=== PATIENT | female | born 1935 | race African-American/Black ===

== ENCOUNTER → 2016-12-16 | Outpatient (CLI) | payer MEDICARE, OTHER ==
[~2016-12-16] MED LIST: ADVAIR 100-501 EACH INH; ADVAIR 250-501 EACH INH; ALLOPURINOL100 M1 ORAL; AMLODIPINE-ATO1 EA10 ORAL; BENADRYL25 M3 PO; CALCITRIOL0.25 MCG PO; COLACE100 MG ORAL; DEXILANT60 MG ORAL; FUROSEMIDE40 MG ORAL; GABAPENTIN400 MG ORAL; ISOSORBIDE DINI10 MG ORAL; ISOSORBIDE DINIT5 MG ORAL; LASIX40 MG ORAL; LIDOCAINE700 M1 TP; MACROBID100 MG ORAL; METOPROLOL SUCC25 MG ORAL; METOPROLOL TART25 MG ORAL; MYLANTA30 M1 ORAL; NEURONTIN300 MG ORAL; NEXIUM20 M1 ORAL; NEXIUM20 MG ORAL; NEXIUM40 M2 ORAL; OXYBUTYNIN CHLOR5 M1 ORAL; OXYCODONE HCL E10 MG PO; OXYCODONE HCL15 M1 ORAL; ROXICODONE15 MG ORAL; SYMBICORT 1601 PUFFS INH; VANCOMYCIN1 GM/2502 IVPB; Vancomycin Hcl MISC
[2016-12-16 12:02] LABS: APPEARANCE,URINE CLOUDY; KETONES,URINE NEGATIVE (NEGATIVE); LEUKOCYTE ESTERASE ,URINE 3+ (NEGATIVE); NITRITE,URINE POSITIVE (NEGATIVE); PH,URINE 6 (4.5-8.0); PROTEIN,URINE 1+ (NEGATIVE); UROBILINOGEN,URINE NORMAL MG/DL (0.0-1.0)
[2016-12-16 12:03] LABS: BASOPHILS % (AUTO) 1.1 % (0.0-2.0); EOSINOPHILS % (AUTO) 2.5 % (0.0-3.0); LYMPHOCYTES % (AUTO) 24.1 % (20.0-45.0); MEAN CORPUSCULAR HEMOGLOBIN 27.3 PG (27.0-31.0); MEAN CORPUSCULAR HGB CONC 30.3 G/DL (32.0-36.0); MEAN CORPUSCULAR VOLUME 90 FL (80-99); MEAN PLATELET VOLUME 5.3 FL (6.5-10.1); MONOCYTES % (AUTO) 11.5 % (1.0-10.0); NEUTROPHILS % (AUTO) 60.8 % (45.0-75.0); PLATELET COUNT 258 K/UL (150-450); RED BLOOD COUNT 3.71 M/UL (4.20-5.40); WHITE BLOOD COUNT 5.4 K/UL (4.8-10.8)
[2016-12-16 12:46] LABS: ALANINE AMINOTRANSFERASE 5 U/L (3-33); ALBUMIN/GLOBULIN RATIO 0.7 (1.0-2.7); ANION GAP 15 (5-15); ASPARTATE AMINO TRANSFERASE 12 U/L (5-40); CALCIUM 9.4 mg/dL (8.6-10.2); CARBON DIOXIDE 22 mEQ/L (20-30); CHLORIDE 103 mEQ/L (98-107); CHOLESTEROL 104 mg/dL (< 200); CHOLESTEROL/HDL RATIO 1.9 (3.3-4.4); HEMOLYSIS 2; LDL CHOLESTEROL (CALC.) 35 mg/dL (60-99); MAGNESIUM 2.1 mg/dL (1.7-2.5); PHOSPHORUS 3.7 mg/dL (2.5-4.8); POTASSIUM 4.8 mEQ/L (3.4-4.9); SODIUM 140 mEQ/L (135-145); URIC ACID 8.1 mg/dL (3.0-7.5)
[2016-12-16 12:48] LABS: HEMOGLOBIN A1C 5.2 % (< 6.0)
[2016-12-16 12:54] LABS: BACTERIA,URINE MODERATE /HPF; SQUAMOUS EPITHELIAL CELL,UR FEW /LPF (NONE/OCC); WBC,URINE 20-30 /HPF (0 - 2)
== END | disposition home or self-care (01) ==
LOC: LAB 11:10
DX: I12.9 Hypertensive chronic kidney disease with stage 1 through stage 4 chronic kidney disease, or unspecified chronic kidney disease (principal); N18.3 Chronic kidney disease, stage 3 (moderate); E66.9 Obesity, unspecified; M19.90 Unspecified osteoarthritis, unspecified site; M10.9 Gout, unspecified
CPT/HCPCS: 36415; 80053; 80061; 81003; 82306; 82607; 82746; 83036; 83735; 84100; 84443; 84550; 85025; 87086; 87181

== ENCOUNTER → 2017-02-12 | Outpatient (CLI) | payer MEDICARE, OTHER ==
[2017-02-12 12:16] LABS: BASOPHILS % (AUTO) 1.1 % (0.0-2.0); EOSINOPHILS % (AUTO) 2.8 % (0.0-3.0); LYMPHOCYTES % (AUTO) 20.9 % (20.0-45.0); MEAN CORPUSCULAR HEMOGLOBIN 27.1 PG (27.0-31.0); MEAN CORPUSCULAR HGB CONC 29.2 G/DL (32.0-36.0); MEAN CORPUSCULAR VOLUME 93 FL (80-99); MONOCYTES % (AUTO) 10.7 % (1.0-10.0); NEUTROPHILS % (AUTO) 64.5 % (45.0-75.0); PLATELET COUNT 218 K/UL (150-450); RED BLOOD COUNT 4.02 M/UL (4.20-5.40); RED CELL DISTRIBUTION WIDTH 16.3 % (11.6-14.8); WHITE BLOOD COUNT 5.5 K/UL (4.8-10.8)
[2017-02-12 12:31] LABS: APPEARANCE,URINE SLIGHTLY CLOUDY; KETONES,URINE NEGATIVE (NEGATIVE); LEUKOCYTE ESTERASE ,URINE 3+ (NEGATIVE); NITRITE,URINE POSITIVE (NEGATIVE); PH,URINE 6.5 (4.5-8.0); PROTEIN,URINE 1+ (NEGATIVE); UROBILINOGEN,URINE NORMAL MG/DL (0.0-1.0)
[2017-02-12 12:34] LABS: ALANINE AMINOTRANSFERASE 6 U/L (3-33); ALBUMIN/GLOBULIN RATIO 0.6 (1.0-2.7); ANION GAP 17 (5-15); ASPARTATE AMINO TRANSFERASE 14 U/L (5-40); CALCIUM 9.5 mg/dL (8.6-10.2); CARBON DIOXIDE 24 mEQ/L (20-30); CHLORIDE 97 mEQ/L (98-107); CHOLESTEROL 106 mg/dL (< 200); CHOLESTEROL/HDL RATIO 1.8 (3.3-4.4); CREATININE 2.1 mg/dL (0.5-0.9); HEMOLYSIS 7; LDL CHOLESTEROL (CALC.) 28 mg/dL (60-99); PHOSPHORUS 4.4 mg/dL (2.5-4.8); POTASSIUM 5.2 mEQ/L (3.4-4.9); SODIUM 138 mEQ/L (135-145); TOTAL PROTEIN 8.3 g/dL (6.6-8.7); URIC ACID 7.9 mg/dL (3.0-7.5)
[2017-02-12 12:38] LABS: HEMOGLOBIN A1C 5.6 % (< 6.0)
[2017-02-12 12:50] LABS: WBC,URINE 40-60 /HPF (0 - 2)
[2017-02-12 12:51] LABS: BACTERIA,URINE MANY /HPF; SQUAMOUS EPITHELIAL CELL,UR FEW /LPF (NONE/OCC)
== END | disposition home or self-care (01) ==
LOC: LAB 11:21
DX: R10.9 Unspecified abdominal pain (principal); M19.90 Unspecified osteoarthritis, unspecified site; I12.9 Hypertensive chronic kidney disease with stage 1 through stage 4 chronic kidney disease, or unspecified chronic kidney disease; E11.22 Type 2 diabetes mellitus with diabetic chronic kidney disease; N18.3 Chronic kidney disease, stage 3 (moderate); E66.9 Obesity, unspecified; N39.0 Urinary tract infection, site not specified; R10.2 Pelvic and perineal pain
CPT/HCPCS: 36415; 80053; 80061; 81001; 82378; 82607; 82746; 83036; 83735; 84100; 84550; 85025; 87086; 87181

== ENCOUNTER → 2017-07-29 | Outpatient (CLI) | payer MEDICARE, OTHER ==
[2017-07-29 12:04] LABS: BASOPHILS % (AUTO) 0.8 % (0.0-2.0); LYMPHOCYTES % (AUTO) 25.5 % (20.0-45.0); MEAN CORPUSCULAR HGB CONC 29.3 G/DL (32.0-36.0); MEAN CORPUSCULAR VOLUME 92 FL (80-99); MEAN PLATELET VOLUME 5.2 FL (6.5-10.1); NEUTROPHILS % (AUTO) 61.6 % (45.0-75.0); PLATELET COUNT 205 K/UL (150-450); RED BLOOD COUNT 3.84 M/UL (4.20-5.40); RED CELL DISTRIBUTION WIDTH 16.2 % (11.6-14.8)
[2017-07-29 12:11] LABS: APPEARANCE,URINE CLOUDY; KETONES,URINE NEGATIVE (NEGATIVE); LEUKOCYTE ESTERASE ,URINE 3+ (NEGATIVE); NITRITE,URINE POSITIVE (NEGATIVE); PH,URINE 6 (4.5-8.0); PROTEIN,URINE 2+ (NEGATIVE); UROBILINOGEN,URINE NORMAL MG/DL (0.0-1.0)
[2017-07-29 12:20] LABS: BACTERIA,URINE MANY /HPF; RBC,URINE 0-2 /HPF (0 - 2); SQUAMOUS EPITHELIAL CELL,UR FEW /LPF (NONE/OCC); WBC,URINE 15-20 /HPF (0 - 2)
[2017-07-29 12:30] LABS: ALANINE AMINOTRANSFERASE 35 U/L (3-33); ALBUMIN/GLOBULIN RATIO 0.6 (1.0-2.7); ANION GAP 10 (5-15); ASPARTATE AMINO TRANSFERASE 41 U/L (5-40); CALCIUM 9.1 mg/dL (8.6-10.2); CARBON DIOXIDE 26 mEQ/L (20-30); CHLORIDE 103 mEQ/L (98-107); CHOLESTEROL 97 mg/dL (< 200); CHOLESTEROL/HDL RATIO 1.7 (3.3-4.4); HEMOLYSIS 2; LDL CHOLESTEROL (CALC.) 23 mg/dL (60-99); POTASSIUM 4.9 mEQ/L (3.4-4.9); SODIUM 139 mEQ/L (135-145); TOTAL PROTEIN 7.9 g/dL (6.6-8.7)
[2017-07-29 12:32] LABS: HEMOGLOBIN A1C 5.7 % (< 6.0)
== END | disposition home or self-care (01) ==
LOC: LAB 10:56
DX: N18.3 Chronic kidney disease, stage 3 (moderate) (principal); I12.9 Hypertensive chronic kidney disease with stage 1 through stage 4 chronic kidney disease, or unspecified chronic kidney disease; E11.22 Type 2 diabetes mellitus with diabetic chronic kidney disease
CPT/HCPCS: 36415; 80053; 80061; 81003; 83036; 85025; 87086; 87181

== ENCOUNTER 2018-01-17 19:14 | Inpatient (IN) | payer MEDICARE, MEDICAID ==
[~2018-01-17] VITALS: Ht 157.5 cm; Wt 83.9 kg
[2018-01-17 19:33] VITALS: BP 156/71
[2018-01-17] MEDS ORDERED: Vancomycin 1.5gm/D5W 250ml 250 ML IVPB ONE (19:45)
[2018-01-17 20:35] LABS: BASOPHILS % (AUTO) 1.1 % (0.0-2.0); EOSINOPHILS % (AUTO) 0.4 % (0.0-3.0); HEMATOCRIT 35.1 % (37.0-47.0); HEMOGLOBIN 10.7 G/DL (12.0-16.0); LYMPHOCYTES % (AUTO) 16.4 % (20.0-45.0); MEAN CORPUSCULAR VOLUME 88 FL (80-99); MONOCYTES % (AUTO) 8.5 % (1.0-10.0); NEUTROPHILS % (AUTO) 73.6 % (45.0-75.0); PLATELET COUNT 199 K/UL (150-450); RED CELL DISTRIBUTION WIDTH 16.1 % (11.6-14.8); WHITE BLOOD COUNT 6.1 K/UL (4.8-10.8)
[2018-01-17 20:43] LABS: APPEARANCE,URINE SLIGHTLY CLOUDY; BILIRUBIN, URINE NEGATIVE (NEGATIVE); COLOR,URINE PALE YELLOW; GLUCOSE, URINE (UA) NEGATIVE (NEGATIVE); KETONES,URINE NEGATIVE (NEGATIVE); LEUKOCYTE ESTERASE ,URINE 3+ (NEGATIVE); NITRITE,URINE NEGATIVE (NEGATIVE); PH,URINE 5 (4.5-8.0); PROTEIN,URINE 2+ (NEGATIVE); UROBILINOGEN,URINE NORMAL MG/DL (0.0-1.0)
[2018-01-17 20:53] LABS: ANION GAP 8 mmol/L (5-15); BLOOD UREA NITROGEN 35 mg/dL (7-18); CARBON DIOXIDE 25 MMOL/L (21-32); CHLORIDE 103 MMOL/L (98-107); CREATININE 2.3 MG/DL (0.55-1.30); POTASSIUM 4.9 MMOL/L (3.5-5.1); SODIUM 135 MMOL/L (136-145)
[2018-01-17 21:03] LABS: ALANINE AMINOTRANSFERASE 30 U/L (12-78); ALBUMIN 2.9 G/DL (3.4-5.0); ALBUMIN/GLOBULIN RATIO 0.5 (1.0-2.7); ALKALINE PHOSPHATASE 167 U/L (46-116); ASPARTATE AMINO TRANSFERASE 32 U/L (15-37); BILIRUBIN,TOTAL 0.3 MG/DL (0.2-1.0)
[2018-01-17] MEDS ORDERED: oxyCODONE HCL/Acetaminophen 5/325mg ORAL ONE (21:45)
[2018-01-17] MEDS ORDERED: Albuterol/Ipratropium 3ml neb HHN PRN (22:15)
[2018-01-17] MEDS ORDERED: Miralax 17gm pkt ORAL PRN (22:15)
[2018-01-17] MEDS ORDERED: Nitroglycerin Subl 0.4mg tab SL PRN (22:15)
--- NOTE | 2018-01-17 23:14 | Emergency Room Report ---
History of Present Illness General Chief Complaint: Pain Source: Patient Present Illness HPI 82-year-old female presents ED for evaluation. Patient coming from long term facility with pain and swelling to the right lower extremity. Warm to touch. 10 out of 10 pain, sharp, nonradiating. History of DVT in the past. Denies chest pain or shortness of breath. Denies fevers or chills. No other aggravating or relieving factors. Denies any other associated symptoms Allergies: Coded Allergies: DIAZEPAM (Verified Allergy, Unknown, 10/07/11) HYDROCODONE (Verified Allergy, Unknown, 07/07/10) MINOXIDIL (Verified Allergy, Unknown, 07/07/10) PENICILLINS (Verified Allergy, Unknown, 10/07/11) NAME ALERT (Verified Adverse Reaction, Unknown, 07/13/08) Patient History Past Medical History: DM, HTN, asthma, CVA/TIA Past Surgical History: none Pertinent Family History: none Social History: Denies: smoking, alcohol use, drug use Last Menstrual Period: n/a Now: No Immunizations: UTD Reviewed Nursing Documentation: PMH: Agreed, PSxH: Agreed Nursing Documentation-PMH Hx Hypertension: Yes Hx Asthma: Yes Hx Diabetes: Yes Hx Cancer: No Hx Neurological Problems: No Hx Cerebrovascular Accident: Yes Hx Syncope: No Hx Weakness: Yes Review of Systems All Other Systems: negative except mentioned in HPI Physical Exam Vital Signs Date Time Temp Pulse Resp B/P (MAP) Pulse Ox O2 Delivery O2 Flow Rate FiO2 01/17/18 19:04 101.0 79 20 146/64 99 Room Air 100.9 Sp02 EP Interpretation: reviewed, normal General Appearance: no apparent distress, alert, GCS 15, non-toxic Head: normocephalic ENT: normal ENT inspection Neck: normal inspection Respiratory: chest non-tender, lungs clear, normal breath sounds, speaking full sentences Cardiovascular #1: regular rate, rhythm, no edema Gastrointestinal: normal bowel sounds, non tender, soft, non-distended, no guarding, no rebound Rectal: deferred Genitourinary: no CVA tenderness Musculoskeletal: swelling - RLE, tender Neurologic: alert, oriented x3, responsive, motor strength/tone normal, sensory intact, speech normal Psychiatric: normal inspection Skin: other - induration/erythema RLE Lymphatic: normal inspection Medical Decision Making Diagnostic Impression: Primary Impression: Cellulitis of right lower extremity Additional Impressions: Renal insufficiency UTI (urinary tract infection) Qualified Codes: N39.0 - Urinary tract infection, site not specified Labs Test 01/17/18 19:50 White Blood Count 6.1 K/UL (4.8-10.8) Red Blood Count 4.00 M/UL (4.20-5.40) Hemoglobin 10.7 G/DL (12.0-16.0) Hematocrit 35.1 % (37.0-47.0) Mean Corpuscular Volume 88 FL (80-99) Mean Corpuscular Hemoglobin 26.8 PG (27.0-31.0) Mean Corpuscular Hemoglobin Concent 30.5 G/DL (32.0-36.0) Red Cell Distribution Width 16.1 % (11.6-14.8) Platelet Count 199 K/UL (150-450) Mean Platelet Volume 5.4 FL (6.5-10.1) Neutrophils (%) (Auto) 73.6 % (45.0-75.0) Lymphocytes (%) (Auto) 16.4 % (20.0-45.0) Monocytes (%) (Auto) 8.5 % (1.0-10.0) Eosinophils (%) (Auto) 0.4 % (0.0-3.0) Basophils (%) (Auto) 1.1 % (0.0-2.0) Urine Color Pale yellow Urine Appearance Slightly cloudy Urine pH 5 (4.5-8.0) Urine Specific [place] 1.010 (1.005-1.035) Urine Protein 2+ (NEGATIVE) Urine Glucose (UA) Negative (NEGATIVE) Urine Ketones Negative (NEGATIVE) Urine Occult Blood 2+ (NEGATIVE) Urine Nitrite Negative (NEGATIVE) Urine Bilirubin Negative (NEGATIVE) Urine Urobilinogen Normal MG/DL (0.0-1.0) Urine Leukocyte Esterase 3+ (NEGATIVE) Urine RBC 2-4 /HPF (0 - 2) Urine WBC 5-10 /HPF (0 - 2) Urine Squamous Epithelial Cells Few /LPF (NONE/OCC) Urine Amorphous Sediment Few /LPF (NONE) Urine Bacteria Many /HPF (NONE) Sodium Level 135 MMOL/L (136-145) Potassium Level 4.9 MMOL/L (3.5-5.1) Chloride Level 103 MMOL/L (98-107) Carbon Dioxide Level 25 MMOL/L (21-32) Anion Gap 8 mmol/L (5-15) Blood Urea Nitrogen 35 mg/dL (7-18) Creatinine 2.3 MG/DL (0.55-1.30) Estimat Glomerular Filtration Rate mL/min (>60) Glucose Level 102 MG/DL (74-106) Lactic Acid Level 1.50 mmol/L (0.66-2.22) Calcium Level 9.0 MG/DL (8.5-10.1) Total Bilirubin 0.3 MG/DL (0.2-1.0) Aspartate Amino Transf (AST/SGOT) 32 U/L (15-37) Alanine Aminotransferase (ALT/SGPT) 30 U/L (12-78) Alkaline Phosphatase 167 U/L (46-116) Pro-B-Type Natriuretic Peptide 1380 pg/mL (0-125) Total Protein 8.6 G/DL (6.4-8.2) Albumin 2.9 G/DL (3.4-5.0) Globulin 5.7 g/dL Albumin/Globulin Ratio 0.5 (1.0-2.7) Chest X-Ray Diagnostic Results Chest X-Ray Diagnostic Results : Chest X-Ray Ordered: Yes # of Views/Limited/Complete: 1 View Indication: Shortness of Breath EP Interpretation: Yes Interpretation: no pneumothorax, other - L atelectasis Impression: Other - atelectasis vs infiltrate Electronically Signed by: Electronically signed by Joe Young MD Last Vital Signs Date Time Temp Pulse Resp B/P (MAP) Pulse Ox O2 Delivery O2 Flow Rate FiO2 01/17/18 19:33 99.1 78 15 156/71 100 Room Air 99.1 Status: improved Disposition: ADMITTED INPATIENT Condition: Serious Referrals: Christopher Villanueva MD (PCP) JOE YOUNG M.D. Jan 17, 2018 23:14
[2018-01-17 23:30] VITALS: BP 150/69
[2018-01-18] VITALS (7 sets, daily range): BP systolic 102–150; BP diastolic 58–85
[2018-01-18] MEDS: Aztreonam Inj 1 GM in NS 50 ML IVPB SCH ×2 (05:35→15:47)
[2018-01-18] MEDS: oxyCODONE 15mg IR tab ORAL PRN ×2 (06:32→20:41)
[2018-01-18 08:45] LABS: EOSINOPHILS % (AUTO) 2.5 % (0.0-3.0); HEMATOCRIT 31.2 % (37.0-47.0); HEMOGLOBIN 9.6 G/DL (12.0-16.0); LYMPHOCYTES % (AUTO) 29.5 % (20.0-45.0); MEAN CORPUSCULAR VOLUME 87 FL (80-99); MONOCYTES % (AUTO) 12.3 % (1.0-10.0); NEUTROPHILS % (AUTO) 54.8 % (45.0-75.0); PLATELET COUNT 192 K/UL (150-450); RED BLOOD COUNT 3.57 M/UL (4.20-5.40); WHITE BLOOD COUNT 5.2 K/UL (4.8-10.8)
[2018-01-18] MEDS: Oxybutynin 5mg tab ORAL SCH (08:47)
[2018-01-18] MEDS: Metoprolol Succinate XL 25mg tab ORAL SCH (08:48)
[2018-01-18] MEDS: Allopurinol 100mg Tab ORAL SCH (08:48)
[2018-01-18] MEDS: Furosemide 40mg tab ORAL SCH (08:48)
[2018-01-18] MEDS: Heparin 5000 units/ml inj SUBQ SCH ×2 (08:50→20:41)
[2018-01-18 08:52] LABS: ALANINE AMINOTRANSFERASE 24 U/L (12-78); ALBUMIN 2.5 G/DL (3.4-5.0); ALBUMIN/GLOBULIN RATIO 0.5 (1.0-2.7); ALKALINE PHOSPHATASE 141 U/L (46-116); ANION GAP 8 mmol/L (5-15); ASPARTATE AMINO TRANSFERASE 24 U/L (15-37); BILIRUBIN,TOTAL 0.4 MG/DL (0.2-1.0); BLOOD UREA NITROGEN 31 mg/dL (7-18); CALCIUM 8.6 MG/DL (8.5-10.1); CARBON DIOXIDE 24 MMOL/L (21-32); CHLORIDE 105 MMOL/L (98-107); CREATININE 2.1 MG/DL (0.55-1.30); POTASSIUM 4.8 MMOL/L (3.5-5.1); SODIUM 137 MMOL/L (136-145)
--- NOTE | 2018-01-18 10:06 | Diagnostic Imaging Report ---
Indication: Cough Technique: One view of the chest Comparison: 08/15/2016 Findings: Bilateral perihilar linear opacities appear similar to the previous exam, probably represent areas of scarring or, on the right, thickening of the minor fissure. The lungs and pleural spaces are otherwise clear. The heart size is upper limits normal. Impression: No definite acute process. Findings as noted
[2018-01-18] MEDS ORDERED: Vancomycin 1 GM in D5W 275 ML IVPB ONE (12:00)
--- NOTE | 2018-01-18 15:11 | Consultation ---
Consult Note Assessment/Plan Renal consult dictated # [id number] PETEY FAIR Jan 18, 2018 15:11
--- NOTE | 2018-01-18 15:27 | Consultation ---
History of Present Illness General Date patient seen: Jan 18, 2018 Chief Complaint: Pain Present Illness HPI 82-year-old female with hx of presents ED for evaluation. Patient coming from [facility] facility with pain and swelling to the right lower extremity. Warm to touch. 10 out of 10 pain, sharp, nonradiating. History of DVT in the past. Denies chest pain or shortness of breath. Denies fevers or chills. No other aggravating or relieving factors. Denies any other associated symptoms Allergies: Coded Allergies: DIAZEPAM (Verified Allergy, Unknown, 10/07/11) HYDROCODONE (Verified Allergy, Unknown, 07/07/10) MINOXIDIL (Verified Allergy, Unknown, 07/07/10) PENICILLINS (Verified Allergy, Unknown, 10/07/11) NAME ALERT (Verified Adverse Reaction, Unknown, 07/13/08) Medication History Scheduled Allopurinol* (Allopurinol*), 100 MG ORAL DAILY, (Reported) Amlodipine/Atorvastatin 2.5-40 Mg (Amlodipine-Atorvast 2.5-40 Mg), 1 TAB ORAL DAILY, (Reported) Calcitriol (Calcitriol), 0.25 MCG PO 3XW, (Reported) Dexlansoprazole (Dexilant), 60 MG ORAL DAILY, (Reported) Fluticasone/Salmeterol (Advair 100-50 Diskus), 1 PUFF INH EVERY 12 HOURS, ( Reported) Furosemide* (Lasix*), 40 MG ORAL TWICE A DAY, (Reported) Furosemide* (Lasix*), 40 MG ORAL DAILY, (Reported) Gabapentin* (Gabapentin*), 300 MG ORAL QID, (Reported) Isosorbide Dinitrate* (Isordil*), 5 MG ORAL EVERY 12 HOURS, (Reported) Lidocaine (Lidocaine), 700 MG TP DAILY, (Reported) Metoprolol Succinate* (Metoprolol Succinate*), 25 MG ORAL DAILY, (Reported) Nitrofurantoin Monohyd/M-Cryst (Nitrofurantoin [place]-Mcr 100 mg), 100 MG ORAL Q12H Scheduled PRN Oxycodone Hcl* (Oxycodone Hcl*), 30 MG ORAL Q8H PRN for For Pain, (Reported) Miscellaneous Medications Oxybutynin Chloride (Oxybutynin Chloride), 15 MG ORAL, (Reported) Patient History Healthcare decision maker Resuscitation status Full Code Advanced Directive on File Past Medical/Surgical History Past Medical/Surgical History: (1) Asthma (2) Gout (3) Cardiomyopathy (4) GERD (gastroesophageal reflux disease) (5) HTN (hypertension) (6) CKD (chronic kidney disease) Review of Systems Constitutional: Reports: no symptoms Eye: Reports: no symptoms Physical Exam General Appearance: WD/WN Lines, tubes and drains: peripheral HEENT: normocephalic Neck: non-tender, normal alignment Respiratory/Chest: chest wall non-tender, lungs clear Breasts: no masses Cardiovascular/Chest: normal rate Abdomen: normal bowel sounds Genitourinary/Rectal: normal genital exam Extremities: normal range of motion Last 24 Hour Vital Signs Date Time Temp Pulse Resp B/P (MAP) Pulse Ox O2 Delivery O2 Flow Rate FiO2 01/18/18 12:00 97.3 74 18 124/58 94 97.3 01/18/18 08:48 79 150/69 01/18/18 08:47 150/69 01/18/18 08:00 96.8 79 18 150/69 97 96.8 01/18/18 04:00 98.3 73 18 102/85 99 98.3 01/18/18 01:07 97.9 69 18 118/58 95 Room Air 97.9 01/18/18 00:00 97.9 69 18 118/58 95 97.9 01/17/18 23:45 99.0 79 16 150/69 100 Room Air 01/17/18 23:30 99.0 79 16 150/69 100 Room Air 99.0 01/17/18 19:33 99.1 78 15 156/71 100 Room Air 99.1 01/17/18 19:04 101.0 79 20 146/64 99 Room Air 100.9 Intake and Output 01/17/18 01/18/18 19:00 07:00 Intake Total 260 ml Balance 260 ml Intake Oral 10 ml IV Total 250 ml # Voids 5 Laboratory Tests Test 01/17/18 19:50 01/18/18 06:40 White Blood Count 6.1 K/UL (4.8-10.8) 5.2 K/UL (4.8-10.8) Red Blood Count 4.00 M/UL (4.20-5.40) L 3.57 M/UL (4.20-5.40) L Hemoglobin 10.7 G/DL (12.0-16.0) L 9.6 G/DL (12.0-16.0) L Hematocrit 35.1 % (37.0-47.0) L 31.2 % (37.0-47.0) L Mean Corpuscular Volume 88 FL (80-99) 87 FL (80-99) Mean Corpuscular Hemoglobin 26.8 PG (27.0-31.0) L 26.9 PG (27.0-31.0) L Mean Corpuscular Hemoglobin Concent 30.5 G/DL (32.0-36.0) L 30.8 G/DL (32.0-36.0) L Red Cell Distribution Width 16.1 % (11.6-14.8) H 16.0 % (11.6-14.8) H Platelet Count 199 K/UL (150-450) 192 K/UL (150-450) Mean Platelet Volume 5.4 FL (6.5-10.1) L 6.0 FL (6.5-10.1) L Neutrophils (%) (Auto) 73.6 % (45.0-75.0) 54.8 % (45.0-75.0) Lymphocytes (%) (Auto) 16.4 % (20.0-45.0) L 29.5 % (20.0-45.0) Monocytes (%) (Auto) 8.5 % (1.0-10.0) 12.3 % (1.0-10.0) H Eosinophils (%) (Auto) 0.4 % (0.0-3.0) 2.5 % (0.0-3.0) Basophils (%) (Auto) 1.1 % (0.0-2.0) 1.0 % (0.0-2.0) Urine Color Pale yellow Urine Appearance Slightly cloudy Urine pH 5 (4.5-8.0) Urine Specific [place] 1.010 (1.005-1.035) Urine Protein 2+ (NEGATIVE) H Urine Glucose (UA) Negative (NEGATIVE) Urine Ketones Negative (NEGATIVE) Urine Occult Blood 2+ (NEGATIVE) H Urine Nitrite Negative (NEGATIVE) Urine Bilirubin Negative (NEGATIVE) Urine Urobilinogen Normal MG/DL (0.0-1.0) Urine Leukocyte Esterase 3+ (NEGATIVE) H Urine RBC 2-4 /HPF (0 - 2) H Urine WBC 5-10 /HPF (0 - 2) H Urine Squamous Epithelial Cells Few /LPF (NONE/OCC) Urine Amorphous Sediment Few /LPF (NONE) H Urine Bacteria Many /HPF (NONE) H Sodium Level 135 MMOL/L (136-145) L 137 MMOL/L (136-145) Potassium Level 4.9 MMOL/L (3.5-5.1) 4.8 MMOL/L (3.5-5.1) Chloride Level 103 MMOL/L (98-107) 105 MMOL/L (98-107) Carbon Dioxide Level 25 MMOL/L (21-32) 24 MMOL/L (21-32) Anion Gap 8 mmol/L (5-15) 8 mmol/L (5-15) Blood Urea Nitrogen 35 mg/dL (7-18) H 31 mg/dL (7-18) H Creatinine 2.3 MG/DL (0.55-1.30) H 2.1 MG/DL (0.55-1.30) H Estimat Glomerular Filtration Rate mL/min (>60) mL/min (>60) Glucose Level 102 MG/DL (74-106) 90 MG/DL (74-106) Lactic Acid Level 1.50 mmol/L (0.66-2.22) Calcium Level 9.0 MG/DL (8.5-10.1) 8.6 MG/DL (8.5-10.1) Total Bilirubin 0.3 MG/DL (0.2-1.0) 0.4 MG/DL (0.2-1.0) Aspartate Amino Transf (AST/SGOT) 32 U/L (15-37) 24 U/L (15-37) Alanine Aminotransferase (ALT/SGPT) 30 U/L (12-78) 24 U/L (12-78) Alkaline Phosphatase 167 U/L (46-116) H 141 U/L (46-116) H Pro-B-Type Natriuretic Peptide 1380 pg/mL (0-125) H Total Protein 8.6 G/DL (6.4-8.2) H 7.5 G/DL (6.4-8.2) Albumin 2.9 G/DL (3.4-5.0) L 2.5 G/DL (3.4-5.0) L Globulin 5.7 g/dL 5.0 g/dL Albumin/Globulin Ratio 0.5 (1.0-2.7) L 0.5 (1.0-2.7) L Random Vancomycin Level 10.2 ug/mL Microbiology Date/Time Source Procedure Growth Status 01/17/18 19:50 Urine,Clean Catch Urine Culture - Preliminary Resulted Height (Feet): 5 Height (Inches): 2.00 Weight (Pounds): 185 Medications Current Medications Medications (Trade) Dose Ordered Sig/Liss Route PRN Reason Start Time Stop Time Status Last Admin Dose Admin Acetaminophen (Tylenol) 650 mg Q4H PRN ORAL fever 01/17/18 22:15 02/16/18 22:14 Albuterol/ Ipratropium (Albuterol/ Ipratropium) 3 ml EVERY 4 HOURS PRN HHN Shortness of Breath 01/17/18 22:15 01/22/18 22:14 Allopurinol (Zyloprim) 100 mg DAILY ORAL 01/18/18 09:00 02/17/18 08:59 01/18/18 08:48 Aztreonam 1 gm/ Sodium Chloride 50 ml @ 100 mls/hr EVERY 8 HOURS IVPB 01/18/18 06:00 01/25/18 05:59 01/18/18 05:35 Dextrose (Dextrose 50%) STAT PRN IV Hypoglycemia 01/17/18 22:15 02/16/18 22:14 Furosemide (Lasix) 40 mg DAILY ORAL 01/18/18 09:00 02/17/18 08:59 01/18/18 08:48 Gabapentin (Neurontin) 300 mg QID ORAL 01/18/18 09:00 02/17/18 08:59 01/18/18 12:34 Heparin Sodium (Porcine) (Heparin 5000 units/ml) 5,000 units EVERY 12 HOURS SUBQ 01/18/18 09:00 02/17/18 08:59 01/18/18 08:50 Isosorbide Dinitrate (Isordil) 5 mg EVERY 12 HOURS ORAL 01/18/18 09:00 02/17/18 08:59 01/18/18 08:47 Metoprolol Succinate (Toprol XL) 25 mg DAILY ORAL 01/18/18 09:00 02/17/18 08:59 01/18/18 08:48 Nitroglycerin (Ntg) 0.4 mg Q5MIN PRN SL Prn Chest Pain 01/17/18 22:15 02/16/18 22:14 Ondansetron HCl (Zofran) 4 mg Q6H PRN IVP Nausea & Vomiting 01/17/18 22:15 02/16/18 22:14 01/18/18 08:46 Oxybutynin Chloride (Ditropan) 15 mg DAILY ORAL 01/18/18 09:00 02/17/18 08:59 01/18/18 08:47 Oxycodone HCl (Roxicodone) 30 mg Q8H PRN ORAL For Pain 01/17/18 22:15 01/24/18 22:14 01/18/18 06:32 Polyethylene Glycol (Miralax) 17 gm DAILYPRN PRN ORAL Constipation 01/17/18 22:15 02/16/18 22:14 Temazepam (Restoril) 15 mg HSPRN PRN ORAL Insomnia 01/17/18 22:15 01/24/18 22:14 Vancomycin HCl (Vanco rx to dose) 1 ea DAILY PRN MISC Per rx protocol 01/18/18 06:15 02/17/18 06:14 Assessment/Plan Problem List: (1) Cellulitis ICD Codes: L03.90 - Cellulitis, unspecified SNOMED: 983378113 (2) Asthma ICD Codes: J45.909 - Asthma SNOMED: 644753814 (3) CKD (chronic kidney disease) ICD Codes: N18.9 - CKD (chronic kidney disease) SNOMED: 654553790 (4) HTN (hypertension) ICD Codes: I10 - HTN (hypertension) SNOMED: 39044594 (5) Diabetes mellitus ICD Codes: E11.9 - Diabetes mellitus SNOMED: 53025589 Assessment/Plan iv abx wound care respiratory treatment titrate fio2 to sat of 92% sliding scale diabetic diet Roberta Durán MD Jan 18, 2018 15:27
--- NOTE | 2018-01-18 15:58 | Consultation ---
History of Present Illness General Date patient seen: Jan 18, 2018 Time patient seen: 15:50 Chief Complaint: Pain Present Illness HPI 82 y/o F with hx of DM2, HTN, asthma, CVA/TIA, DVT, SNF resident presents to ED on 01/17 with RLE pain and swelling, warmth, 08/17 pain Ev[place] CP, SOB, f/c Allergies: Coded Allergies: DIAZEPAM (Verified Allergy, Unknown, 10/07/11) HYDROCODONE (Verified Allergy, Unknown, 07/07/10) MINOXIDIL (Verified Allergy, Unknown, 07/07/10) PENICILLINS (Verified Allergy, Unknown, 10/07/11) NAME ALERT (Verified Adverse Reaction, Unknown, 07/13/08) Medication History Scheduled Allopurinol* (Allopurinol*), 100 MG ORAL DAILY, (Reported) Amlodipine/Atorvastatin 2.5-40 Mg (Amlodipine-Atorvast 2.5-40 Mg), 1 TAB ORAL DAILY, (Reported) Calcitriol (Calcitriol), 0.25 MCG PO 3XW, (Reported) Dexlansoprazole (Dexilant), 60 MG ORAL DAILY, (Reported) Fluticasone/Salmeterol (Advair 100-50 Diskus), 1 PUFF INH EVERY 12 HOURS, ( Reported) Furosemide* (Lasix*), 40 MG ORAL TWICE A DAY, (Reported) Furosemide* (Lasix*), 40 MG ORAL DAILY, (Reported) Gabapentin* (Gabapentin*), 300 MG ORAL QID, (Reported) Isosorbide Dinitrate* (Isordil*), 5 MG ORAL EVERY 12 HOURS, (Reported) Lidocaine (Lidocaine), 700 MG TP DAILY, (Reported) Metoprolol Succinate* (Metoprolol Succinate*), 25 MG ORAL DAILY, (Reported) Nitrofurantoin Monohyd/M-Cryst (Nitrofurantoin [place]-Mcr 100 mg), 100 MG ORAL Q12H Scheduled PRN Oxycodone Hcl* (Oxycodone Hcl*), 30 MG ORAL Q8H PRN for For Pain, (Reported) Miscellaneous Medications Oxybutynin Chloride (Oxybutynin Chloride), 15 MG ORAL, (Reported) Patient History Healthcare decision maker Resuscitation status Full Code Advanced Directive on File Patient History Narrative PHx: as above Shx: Denies: smoking, alcohol use, drug use Fhx: non contributory Review of Systems All Other Systems: negative except mentioned in HPI Physical Exam Physical Exam Narrative General Appearance: WD/WN Lines, tubes and drains: peripheral HEENT: normocephalic Neck: non-tender, normal alignment Respiratory/Chest: chest wall non-tender, lungs clear Breasts: no masses Cardiovascular/Chest: normal rate Abdomen: normal bowel sounds Genitourinary/Rectal: normal genital exam Extremities: normal range of motion R >L w/ venous stasis changes. R leg +erythematmous, mildly warm and TTP non pitting edema L>R Last 24 Hour Vital Signs Date Time Temp Pulse Resp B/P (MAP) Pulse Ox O2 Delivery O2 Flow Rate FiO2 01/18/18 12:00 97.3 74 18 124/58 94 97.3 01/18/18 08:48 79 150/69 01/18/18 08:47 150/69 01/18/18 08:00 96.8 79 18 150/69 97 96.8 01/18/18 04:00 98.3 73 18 102/85 99 98.3 01/18/18 01:07 97.9 69 18 118/58 95 Room Air 97.9 01/18/18 00:00 97.9 69 18 118/58 95 97.9 01/17/18 23:45 99.0 79 16 150/69 100 Room Air 01/17/18 23:30 99.0 79 16 150/69 100 Room Air 99.0 01/17/18 19:33 99.1 78 15 156/71 100 Room Air 99.1 01/17/18 19:04 101.0 79 20 146/64 99 Room Air 100.9 Intake and Output 01/17/18 01/18/18 19:00 07:00 Intake Total 260 ml Balance 260 ml Intake Oral 10 ml IV Total 250 ml # Voids 5 Laboratory Tests Test 01/17/18 19:50 01/18/18 06:40 White Blood Count 6.1 K/UL (4.8-10.8) 5.2 K/UL (4.8-10.8) Red Blood Count 4.00 M/UL (4.20-5.40) L 3.57 M/UL (4.20-5.40) L Hemoglobin 10.7 G/DL (12.0-16.0) L 9.6 G/DL (12.0-16.0) L Hematocrit 35.1 % (37.0-47.0) L 31.2 % (37.0-47.0) L Mean Corpuscular Volume 88 FL (80-99) 87 FL (80-99) Mean Corpuscular Hemoglobin 26.8 PG (27.0-31.0) L 26.9 PG (27.0-31.0) L Mean Corpuscular Hemoglobin Concent 30.5 G/DL (32.0-36.0) L 30.8 G/DL (32.0-36.0) L Red Cell Distribution Width 16.1 % (11.6-14.8) H 16.0 % (11.6-14.8) H Platelet Count 199 K/UL (150-450) 192 K/UL (150-450) Mean Platelet Volume 5.4 FL (6.5-10.1) L 6.0 FL (6.5-10.1) L Neutrophils (%) (Auto) 73.6 % (45.0-75.0) 54.8 % (45.0-75.0) Lymphocytes (%) (Auto) 16.4 % (20.0-45.0) L 29.5 % (20.0-45.0) Monocytes (%) (Auto) 8.5 % (1.0-10.0) 12.3 % (1.0-10.0) H Eosinophils (%) (Auto) 0.4 % (0.0-3.0) 2.5 % (0.0-3.0) Basophils (%) (Auto) 1.1 % (0.0-2.0) 1.0 % (0.0-2.0) Urine Color Pale yellow Urine Appearance Slightly cloudy Urine pH 5 (4.5-8.0) Urine Specific [place] 1.010 (1.005-1.035) Urine Protein 2+ (NEGATIVE) H Urine Glucose (UA) Negative (NEGATIVE) Urine Ketones Negative (NEGATIVE) Urine Occult Blood 2+ (NEGATIVE) H Urine Nitrite Negative (NEGATIVE) Urine Bilirubin Negative (NEGATIVE) Urine Urobilinogen Normal MG/DL (0.0-1.0) Urine Leukocyte Esterase 3+ (NEGATIVE) H Urine RBC 2-4 /HPF (0 - 2) H Urine WBC 5-10 /HPF (0 - 2) H Urine Squamous Epithelial Cells Few /LPF (NONE/OCC) Urine Amorphous Sediment Few /LPF (NONE) H Urine Bacteria Many /HPF (NONE) H Sodium Level 135 MMOL/L (136-145) L 137 MMOL/L (136-145) Potassium Level 4.9 MMOL/L (3.5-5.1) 4.8 MMOL/L (3.5-5.1) Chloride Level 103 MMOL/L (98-107) 105 MMOL/L (98-107) Carbon Dioxide Level 25 MMOL/L (21-32) 24 MMOL/L (21-32) Anion Gap 8 mmol/L (5-15) 8 mmol/L (5-15) Blood Urea Nitrogen 35 mg/dL (7-18) H 31 mg/dL (7-18) H Creatinine 2.3 MG/DL (0.55-1.30) H 2.1 MG/DL (0.55-1.30) H Estimat Glomerular Filtration Rate mL/min (>60) mL/min (>60) Glucose Level 102 MG/DL (74-106) 90 MG/DL (74-106) Lactic Acid Level 1.50 mmol/L (0.66-2.22) Calcium Level 9.0 MG/DL (8.5-10.1) 8.6 MG/DL (8.5-10.1) Total Bilirubin 0.3 MG/DL (0.2-1.0) 0.4 MG/DL (0.2-1.0) Aspartate Amino Transf (AST/SGOT) 32 U/L (15-37) 24 U/L (15-37) Alanine Aminotransferase (ALT/SGPT) 30 U/L (12-78) 24 U/L (12-78) Alkaline Phosphatase 167 U/L (46-116) H 141 U/L (46-116) H Pro-B-Type Natriuretic Peptide 1380 pg/mL (0-125) H Total Protein 8.6 G/DL (6.4-8.2) H 7.5 G/DL (6.4-8.2) Albumin 2.9 G/DL (3.4-5.0) L 2.5 G/DL (3.4-5.0) L Globulin 5.7 g/dL 5.0 g/dL Albumin/Globulin Ratio 0.5 (1.0-2.7) L 0.5 (1.0-2.7) L Random Vancomycin Level 10.2 ug/mL Microbiology Date/Time Source Procedure Growth Status 01/17/18 19:50 Urine,Clean Catch Urine Culture - Preliminary Resulted Height (Feet): 5 Height (Inches): 2.00 Weight (Pounds): 185 Medications Current Medications Medications (Trade) Dose Ordered Sig/Liss Route PRN Reason Start Time Stop Time Status Last Admin Dose Admin Acetaminophen (Tylenol) 650 mg Q4H PRN ORAL fever 01/17/18 22:15 02/16/18 22:14 Albuterol/ Ipratropium (Albuterol/ Ipratropium) 3 ml EVERY 4 HOURS PRN HHN Shortness of Breath 01/17/18 22:15 01/22/18 22:14 Allopurinol (Zyloprim) 100 mg DAILY ORAL 01/18/18 09:00 02/17/18 08:59 01/18/18 08:48 Aztreonam 1 gm/ Sodium Chloride 50 ml @ 100 mls/hr EVERY 8 HOURS IVPB 01/18/18 06:00 01/25/18 05:59 01/18/18 15:47 Dextrose (Dextrose 50%) STAT PRN IV Hypoglycemia 01/17/18 22:15 02/16/18 22:14 Furosemide (Lasix) 40 mg DAILY ORAL 01/18/18 09:00 02/17/18 08:59 01/18/18 08:48 Gabapentin (Neurontin) 300 mg QID ORAL 01/18/18 09:00 02/17/18 08:59 01/18/18 12:34 Heparin Sodium (Porcine) (Heparin 5000 units/ml) 5,000 units EVERY 12 HOURS SUBQ 01/18/18 09:00 02/17/18 08:59 01/18/18 08:50 Isosorbide Dinitrate (Isordil) 5 mg EVERY 12 HOURS ORAL 01/18/18 09:00 02/17/18 08:59 01/18/18 08:47 Metoprolol Succinate (Toprol XL) 25 mg DAILY ORAL 01/18/18 09:00 02/17/18 08:59 01/18/18 08:48 Nitroglycerin (Ntg) 0.4 mg Q5MIN PRN SL Prn Chest Pain 01/17/18 22:15 02/16/18 22:14 Ondansetron HCl (Zofran) 4 mg Q6H PRN IVP Nausea & Vomiting 01/17/18 22:15 02/16/18 22:14 01/18/18 08:46 Oxybutynin Chloride (Ditropan) 15 mg DAILY ORAL 01/18/18 09:00 02/17/18 08:59 01/18/18 08:47 Oxycodone HCl (Roxicodone) 30 mg Q8H PRN ORAL For Pain 01/17/18 22:15 01/24/18 22:14 01/18/18 06:32 Polyethylene Glycol (Miralax) 17 gm DAILYPRN PRN ORAL Constipation 01/17/18 22:15 02/16/18 22:14 Temazepam (Restoril) 15 mg HSPRN PRN ORAL Insomnia 01/17/18 22:15 01/24/18 22:14 Vancomycin HCl (Vanco rx to dose) 1 ea DAILY PRN MISC Per rx protocol 01/18/18 06:15 02/17/18 06:14 Assessment/Plan Assessment/Plan Abx: IV Vanco 01/17- Aztreonam 01/18- Assessment: RLE cellulitis- r/o DVT Fever -no leukocytosis -u.a wbc 5-10, nit neg, leuk +3; ucx p -CXR: no acute disease -Bcx p DM2 HTN asthma CVA/TIA hx DVT SN[facility] resident ? PNC allergy reported on EMR, however patient denies it Plan: -COntinue IV Vanco and Aztreonam abx d#2 to IV Ancef for cellulitis (patient denies PNC allergy) -f/u v. duplex -f/u cx -monitor CBC/BMP, temperatures Thank you for this consultation. Will continue to follow along with you. Discussed with Lillian Washington M.D. Jan 18, 2018 15:58
[2018-01-18] MEDS ORDERED: Fleet's Enema 133ml RECTAL ONE ×2 (16:00→23:00)
--- NOTE | 2018-01-18 16:44 | GI Initial Consult Note ---
Karen Valdez N.PIlda 01/18/18 1643: History of Present Illness General Date patient seen: Jan 18, 2018 Time patient seen: 16:43 Reason for Hospitalization: Pain Referring physician: LEYDA ARGUETA Reason for Consultation: CONSTIPATION Present Illness HPI 82-year-old female presents ED for evaluation. Patient coming from long term facility with pain and swelling to the right lower extremity. Warm to touch. 10 out of 10 pain, sharp, nonradiating. History of DVT in the past. Denies chest pain or shortness of breath. Denies fevers or chills. No other aggravating or relieving factors. Denies any other associated symptoms GI consulted for constipation. Pt seen, NAD with no active s/sx of N/V/D. Son at bedside. Complaint of no BM x 2 days. Feels she does not completely empty her bowels during movements. Has lower abdominal pain. States she uses oxycodone for her lower extremity cellulitis. Presents today with anemia, renal insufficiency, and elevated alkaline phosphatase. Last colonoscopy x 10 years, states she has a history of multiple colonic polyps. Home Meds Active Scripts Cephalexin* (KEFLEX*) 500 Mg Capsule, 250 MG ORAL EVERY 6 HOURS for 3 Days, CAP Prov:Roberta Durán MD 01/22/18 Nitrofurantoin Monohyd/M-Cryst (Nitrofurantoin Bacon-Mcr 100 mg) 100 Mg Capsule, 100 MG ORAL Q12H, #14 CAP Prov:MARCELO VALDEZ M.D. 08/16/16 Reported Medications Oxycodone Hcl* (OXYCODONE HCL*) 15 Mg Tablet, 30 MG ORAL Q8H Y for For Pain, # 30 TAB 0 Refills 08/16/16 Oxybutynin Chloride (OXYBUTYNIN CHLORIDE) 5 Mg Tablet, 15 MG ORAL, #30 TAB 0 Refills 08/16/16 Isosorbide Dinitrate* (ISORDIL*) 10 Mg Tablet, 5 MG ORAL EVERY 12 HOURS, #20 TAB 0 Refills 08/16/16 Fluticasone/Salmeterol (Advair 100-50 Diskus) 1 Each Blst.w.dev, 1 PUFF INH EVERY 12 HOURS, EA 08/16/16 Dexlansoprazole (Dexilant) 60 Mg Cap., 60 MG ORAL DAILY, CAP 07/26/15 Metoprolol Succinate* (METOPROLOL SUCCINATE*) 25 Mg Tab.er.24h, 25 MG ORAL DAILY , TAB 07/26/15 Furosemide* (LASIX*) 40 Mg Tablet, 40 MG ORAL DAILY, TAB 07/26/15 Furosemide* (LASIX*) 40 Mg Tablet, 40 MG ORAL TWICE A DAY, TAB 0 Refills 06/20/15 Calcitriol (CALCITRIOL) 0.25 Mcg Capsule, 0.25 MCG PO 3XW, CAP 05/21/15 Lidocaine (Lidocaine) 700 Mg Adh..patch, 700 MG TP DAILY, PATCH 05/21/15 Allopurinol* (ALLOPURINOL*) 100 Mg Tablet, 100 MG ORAL DAILY, TAB 05/21/15 Gabapentin* (GABAPENTIN*) 400 Mg Capsule, 300 MG ORAL QID, CAP 0 Refills 05/21/15 Amlodipine/Atorvastatin 2.5-40 Mg (AMLODIPINE-ATORVAST 2.5-40 MG) 1 Each Tablet , 1 TAB ORAL DAILY, TAB 05/21/15 Med list reviewed/reconciled: Yes Allergies: Coded Allergies: DIAZEPAM (Verified Allergy, Unknown, 10/07/11) HYDROCODONE (Verified Allergy, Unknown, 07/07/10) MINOXIDIL (Verified Allergy, Unknown, 07/07/10) NAME ALERT (Verified Adverse Reaction, Unknown, 07/13/08) Patient History History Provided By: Patient PMH Narrative Past Medical History: DM, HTN, asthma, CVA/TIA Past Surgical History: none Pertinent Family History: none Social History: Denies: smoking, alcohol use, drug use Last Menstrual Period: n/a Now: No Immunizations: UTD Reviewed Nursing Documentation: PMH: Agreed, PSxH: Agreed Nursing Documentation-PMH Hx Hypertension: Yes Hx Asthma: Yes Hx Diabetes: Yes Hx Cancer: No Hx Neurological Problems: No Hx Cerebrovascular Accident: Yes Hx Syncope: No Hx Weakness: Yes Social History: Denies: smoking, alcohol use, drug use, other Review of Systems All Other Systems: negative except mentioned in HPI Physical Exam Vital Signs Date Time Temp Pulse Resp B/P (MAP) Pulse Ox O2 Delivery O2 Flow Rate FiO2 01/17/18 19:04 101.0 79 20 146/64 99 Room Air 100.9 Sp02 EP Interpretation: reviewed, normal Labs Laboratory Tests Test 01/17/18 19:50 01/18/18 06:40 01/18/18 16:15 White Blood Count 6.1 K/UL (4.8-10.8) 5.2 K/UL (4.8-10.8) Red Blood Count 4.00 M/UL (4.20-5.40) L 3.57 M/UL (4.20-5.40) L Hemoglobin 10.7 G/DL (12.0-16.0) L 9.6 G/DL (12.0-16.0) L Hematocrit 35.1 % (37.0-47.0) L 31.2 % (37.0-47.0) L Mean Corpuscular Volume 88 FL (80-99) 87 FL (80-99) Mean Corpuscular Hemoglobin 26.8 PG (27.0-31.0) L 26.9 PG (27.0-31.0) L Mean Corpuscular Hemoglobin Concent 30.5 G/DL (32.0-36.0) L 30.8 G/DL (32.0-36.0) L Red Cell Distribution Width 16.1 % (11.6-14.8) H 16.0 % (11.6-14.8) H Platelet Count 199 K/UL (150-450) 192 K/UL (150-450) Mean Platelet Volume 5.4 FL (6.5-10.1) L 6.0 FL (6.5-10.1) L Neutrophils (%) (Auto) 73.6 % (45.0-75.0) 54.8 % (45.0-75.0) Lymphocytes (%) (Auto) 16.4 % (20.0-45.0) L 29.5 % (20.0-45.0) Monocytes (%) (Auto) 8.5 % (1.0-10.0) 12.3 % (1.0-10.0) H Eosinophils (%) (Auto) 0.4 % (0.0-3.0) 2.5 % (0.0-3.0) Basophils (%) (Auto) 1.1 % (0.0-2.0) 1.0 % (0.0-2.0) Urine Color Pale yellow Urine Appearance Slightly cloudy Urine pH 5 (4.5-8.0) Urine Specific [place] 1.010 (1.005-1.035) Urine Protein 2+ (NEGATIVE) H Urine Glucose (UA) Negative (NEGATIVE) Urine Ketones Negative (NEGATIVE) Urine Occult Blood 2+ (NEGATIVE) H Urine Nitrite Negative (NEGATIVE) Urine Bilirubin Negative (NEGATIVE) Urine Urobilinogen Normal MG/DL (0.0-1.0) Urine Leukocyte Esterase 3+ (NEGATIVE) H Urine RBC 2-4 /HPF (0 - 2) H Urine WBC 5-10 /HPF (0 - 2) H Urine Squamous Epithelial Cells Few /LPF (NONE/OCC) Urine Amorphous Sediment Few /LPF (NONE) H Urine Bacteria Many /HPF (NONE) H Sodium Level 135 MMOL/L (136-145) L 137 MMOL/L (136-145) Potassium Level 4.9 MMOL/L (3.5-5.1) 4.8 MMOL/L (3.5-5.1) Chloride Level 103 MMOL/L (98-107) 105 MMOL/L (98-107) Carbon Dioxide Level 25 MMOL/L (21-32) 24 MMOL/L (21-32) Anion Gap 8 mmol/L (5-15) 8 mmol/L (5-15) Blood Urea Nitrogen 35 mg/dL (7-18) H 31 mg/dL (7-18) H Creatinine 2.3 MG/DL (0.55-1.30) H 2.1 MG/DL (0.55-1.30) H Estimat Glomerular Filtration Rate mL/min (>60) mL/min (>60) Glucose Level 102 MG/DL (74-106) 90 MG/DL (74-106) Lactic Acid Level 1.50 mmol/L (0.66-2.22) Calcium Level 9.0 MG/DL (8.5-10.1) 8.6 MG/DL (8.5-10.1) Total Bilirubin 0.3 MG/DL (0.2-1.0) 0.4 MG/DL (0.2-1.0) Aspartate Amino Transf (AST/SGOT) 32 U/L (15-37) 24 U/L (15-37) Alanine Aminotransferase (ALT/SGPT) 30 U/L (12-78) 24 U/L (12-78) Alkaline Phosphatase 167 U/L (46-116) H 141 U/L (46-116) H Pro-B-Type Natriuretic Peptide 1380 pg/mL (0-125) H Total Protein 8.6 G/DL (6.4-8.2) H 7.5 G/DL (6.4-8.2) Albumin 2.9 G/DL (3.4-5.0) L 2.5 G/DL (3.4-5.0) L Globulin 5.7 g/dL 5.0 g/dL Albumin/Globulin Ratio 0.5 (1.0-2.7) L 0.5 (1.0-2.7) L Random Vancomycin Level 10.2 ug/mL Calcium (Send out) Pending Parathyroid Hormone (Intact) Pending General Appearance: well appearing, no apparent distress, alert Head: normocephalic EENT: PERRL/EOMI, normal ENT inspection Neck: supple Respiratory: normal breath sounds, no respiratory distress Cardiovascular: normal rate Gastrointestinal: normal inspection, non tender, soft, normal bowel sounds, non -distended Rectal: deferred Genitourinary: no CVA tenderness Musculoskeletal: normal inspection, back normal Neurologic: normal inspection, alert, oriented x3, responsive Psychiatric: normal inspection, judgement/insight normal, memory normal Skin: normal inspection, normal color, no rash, warm/dry, palpation normal, well hydrated Lymphatic: normal inspection, no adenopathy Other Organ Systems lower extremity cellulitis Current Medications Current Medications Medications (Trade) Dose Ordered Sig/Liss Route PRN Reason Start Time Stop Time Status Last Admin Dose Admin Acetaminophen (Tylenol) 650 mg Q4H PRN ORAL fever 01/17/18 22:15 02/16/18 22:14 Albuterol/ Ipratropium (Albuterol/ Ipratropium) 3 ml EVERY 4 HOURS PRN HHN Shortness of Breath 01/17/18 22:15 01/22/18 22:14 Allopurinol (Zyloprim) 100 mg DAILY ORAL 01/18/18 09:00 02/17/18 08:59 01/18/18 08:48 Aztreonam 1 gm/ Sodium Chloride 50 ml @ 100 mls/hr EVERY 8 HOURS IVPB 3/13/18 06:00 01/25/18 05:59 01/18/18 15:47 Dextrose (Dextrose 50%) STAT PRN IV Hypoglycemia 01/17/18 22:15 02/16/18 22:14 Furosemide (Lasix) 40 mg DAILY ORAL 01/18/18 09:00 02/17/18 08:59 01/18/18 08:48 Gabapentin (Neurontin) 300 mg QID ORAL 01/18/18 09:00 02/17/18 08:59 01/18/18 12:34 Heparin Sodium (Porcine) (Heparin 5000 units/ml) 5,000 units EVERY 12 HOURS SUBQ 01/18/18 09:00 02/17/18 08:59 01/18/18 08:50 Isosorbide Dinitrate (Isordil) 5 mg EVERY 12 HOURS ORAL 01/18/18 09:00 02/17/18 08:59 01/18/18 08:47 Metoprolol Succinate (Toprol XL) 25 mg DAILY ORAL 01/18/18 09:00 02/17/18 08:59 01/18/18 08:48 Nitroglycerin (Ntg) 0.4 mg Q5MIN PRN SL Prn Chest Pain 01/17/18 22:15 02/16/18 22:14 Ondansetron HCl (Zofran) 4 mg Q6H PRN IVP Nausea & Vomiting 01/17/18 22:15 02/16/18 22:14 01/18/18 08:46 Oxybutynin Chloride (Ditropan) 15 mg DAILY ORAL 01/18/18 09:00 02/17/18 08:59 01/18/18 08:47 Oxycodone HCl (Roxicodone) 30 mg Q8H PRN ORAL For Pain 01/17/18 22:15 01/24/18 22:14 01/18/18 06:32 Polyethylene Glycol (Miralax) 17 gm DAILYPRN PRN ORAL Constipation 01/17/18 22:15 02/16/18 22:14 Sodium Phosphate (Fleet's Sodium Phosl Enema) 133 ml ONCE ONCE RECTAL 01/18/18 23:00 01/18/18 23:01 Temazepam (Restoril) 15 mg HSPRN PRN ORAL Insomnia 01/17/18 22:15 01/24/18 22:14 Vancomycin HCl (Vanco rx to dose) 1 ea DAILY PRN MISC Per rx protocol 01/18/18 06:15 02/17/18 06:14 GI: Plan Problems: (1) Therapeutic opioid-induced constipation (OIC) (2) Abdominal pain (3) Anemia Plan start bowel regime >> colace TID + miralax fleets x 1 + PO mineral oil tonight, consider relistor SQ for OIC if indicated adv diet anemia work up OB stool r/o GI bleed monitor H&H, prn transfusions ppi fu labs Discussed with Dr. Bradshaw. Thank you for this patient referral, we will follow. SVETLANA BRADSHAW 01/25/18 1238: History of Present Illness General Reason for Hospitalization: Pain Present Illness Home Meds Active Scripts Cephalexin* (KEFLEX*) 500 Mg Capsule, 250 MG ORAL EVERY 6 HOURS for 3 Days, CAP Prov:Roberta Durán MD 01/22/18 Nitrofurantoin Monohyd/M-Cryst (Nitrofurantoin Bacon-Mcr 100 mg) 100 Mg Capsule, 100 MG ORAL Q12H, #14 CAP Prov:MARCELO VALDEZ M.D. 08/16/16 Reported Medications Oxycodone Hcl* (OXYCODONE HCL*) 15 Mg Tablet, 30 MG ORAL Q8H Y for For Pain, # 30 TAB 0 Refills 08/16/16 Oxybutynin Chloride (OXYBUTYNIN CHLORIDE) 5 Mg Tablet, 15 MG ORAL, #30 TAB 0 Refills 08/16/16 Isosorbide Dinitrate* (ISORDIL*) 10 Mg Tablet, 5 MG ORAL EVERY 12 HOURS, #20 TAB 0 Refills 08/16/16 Fluticasone/Salmeterol (Advair 100-50 Diskus) 1 Each Blst.w.dev, 1 PUFF INH EVERY 12 HOURS, EA 08/16/16 Dexlansoprazole (Dexilant) 60 Mg Cap., 60 MG ORAL DAILY, CAP 07/26/15 Metoprolol Succinate* (METOPROLOL SUCCINATE*) 25 Mg Tab.er.24h, 25 MG ORAL DAILY , TAB 07/26/15 Furosemide* (LASIX*) 40 Mg Tablet, 40 MG ORAL DAILY, TAB 07/26/15 Furosemide* (LASIX*) 40 Mg Tablet, 40 MG ORAL TWICE A DAY, TAB 0 Refills 06/20/15 Calcitriol (CALCITRIOL) 0.25 Mcg Capsule, 0.25 MCG PO 3XW, CAP 05/21/15 Lidocaine (Lidocaine) 700 Mg Adh..patch, 700 MG TP DAILY, PATCH 05/21/15 Allopurinol* (ALLOPURINOL*) 100 Mg Tablet, 100 MG ORAL DAILY, TAB 05/21/15 Gabapentin* (GABAPENTIN*) 400 Mg Capsule, 300 MG ORAL QID, CAP 0 Refills 05/21/15 Amlodipine/Atorvastatin 2.5-40 Mg (AMLODIPINE-ATORVAST 2.5-40 MG) 1 Each Tablet , 1 TAB ORAL DAILY, TAB 05/21/15 Allergies: Coded Allergies: DIAZEPAM (Verified Allergy, Unknown, 10/07/11) HYDROCODONE (Verified Allergy, Unknown, 07/07/10) MINOXIDIL (Verified Allergy, Unknown, 07/07/10) NAME ALERT (Verified Adverse Reaction, Unknown, 07/13/08) GI: Plan Plan The patient was seen and examined at bedside and all new and available data was reviewed in the patients chart. I agree with the above findings, impression and plan. (Patient seen earlier today. Signature stamp does not reflect patient encounter time.). - MD Sol Mason Anh Ernie Ruelas Jan 18, 2018 16:43 SVETLANA BRADSHAW Jan 25, 2018 12:38
[2018-01-18] MEDS ORDERED: Mineral Oil 30ml ud ORAL ONE (18:00)
--- NOTE | 2018-01-18 19:43 | History & Physical ---
History and Physical History & Physicial Dictated for Int Med-Dr Villanueva no. [id number]. PAUL MEJIA Jan 18, 2018 19:43
[2018-01-18] MEDS: ceFAZolin sod 1 GM in NS 55 ML IVPB SCH (20:40)
--- NOTE | 2018-01-18 21:45 | Consultation ---
DATE OF CONSULTATION: 01/18/2018 NEPHROLOGY CONSULTATION CONSULTING PHYSICIAN: Amor Flores M.D. REFERRING PHYSICIAN: Christopher Villanueva M.D. REASON FOR CONSULTATION: History of chronic kidney disease. HISTORY OF PRESENT ILLNESS: This is a 82-year-old female, who is known to me from number of years now. The patient comes to my office for her CKD. She has also significant lower extremity edema and has been using diuretics in the past. The patient was admitted for some abdominal pain and right leg pain. PAST MEDICAL HISTORY: As mentioned, the patient has history of CKD, history of hypertension, diabetes, asthma. MEDICATIONS: Reviewed in the EMR. SOCIAL HISTORY: No history of smoking or alcohol abuse. The patient lives in a [place] [facility] facility. ALLERGIES: No known drug allergies. REVIEW OF SYSTEMS: Noncontributory except above. PHYSICAL EXAMINATION: GENERAL: The patient is an obese female, in no acute distress. VITAL SIGNS: Blood pressure is 124/58, pulse 74, temperature 97.3, and respiratory rate is 18. HEENT: Pale conjunctivae. Anicteric sclerae. NECK: Supple. LUNGS: Clear to auscultation. HEART: S1 and S2 without murmurs or rubs. ABDOMEN: Soft and nontender. EXTREMITIES: Bilateral pedal edema. LABORATORY FINDINGS: The CBC shows WBC of 5.2, hematocrit is 31.2, hemoglobin is 9.6, platelets 192,000. Chemistry panel, serum sodium of 137, potassium 4.8, chloride 105, BUN is 31, creatinine 2.1. UA shows many bacteria, 5 to 10 WBCs per high-power field, and 2+ protein. ASSESSMENT: This is an 82-year-old female who is admitted with abdominal pain and also right lower extremity pain. She has history of CKD and her serum creatinine appears to be higher than her baseline at this point so she has acute on chronic renal failure. The question is if she has prerenal azotemia, acute interstitial nephritisor obstruction. PLANS: Urine studies will be ordered. The patient will have an kidney ultrasound to assess the kidney size, also look at the echogenicity of the kidneys and make sure the patient does not have any obstruction. Chemistry panel will be followed closely. Intact serum PTH needs to be ordered to make sure the patient does not have secondary hyperparathyroidism. Phosphorus will be checked to see if patient needs to be on phosphate binders. Thank you very much, Dr. Villanueva, for this consultation. Amor Flores M.D. DR: Koby JOB#: [id number] CC: RUFUS
--- NOTE | 2018-01-18 22:30 | History and Physical Report ---
DATE OF ADMISSION: 01/17/2018 CHIEF COMPLAINT: The patient is an 82-year-old female, presents with chief complaint of right leg pain and swelling. HISTORY OF PRESENT ILLNESS: Began one day prior to admission. The patient began to have right leg pain and swelling. The pain is 10/10. The patient has a prior history of deep venous thrombosis. The patient presented to [facility] emergency room. An initial venous duplex Doppler was negative for deep venous thrombosis. The patient is admitted for cellulitis of the right lower extremity. REVIEW OF SYSTEMS: Unable to assess, secondary to patient's mental status. PAST MEDICAL HISTORY: Significant for: 1. Hypertension. 2. Diabetes type 2. 3. Asthma. 4. Cardiomyopathy. 5. Congestive heart failure. 6. Osteoarthritis. 7. Cerebrovascular disease, status post cerebrovascular accident. 8. Chronic renal failure. PAST SURGICAL HISTORY: Significant for: 1. Gastric tumor removal. 2. Cholecystectomy. 3. Appendectomy. CURRENT MEDICATIONS: 1. Lasix 40 mg p.o. three times weekly on Wednesday, Wednesday, and Wednesday. 2. Potassium chloride 10 mEq one tablet p.o. three times weekly on Wednesday, , and Wednesday. 3. Gabapentin 100 mg p.o. three times daily. 4. Rosuvastatin 5 mg p.o. at bedtime. 5. Dexilant 60 mg p.o. daily. 6. Calcitriol 0.25 mcg p.o. three times weekly. 7. Amlodipine 5 mg p.o. daily. 8. VESIcare 5 mg p.o. daily. 9. Aspirin 325 mg p.o. daily. 10. Metoprolol 25 mg p.o. daily. 11. Allopurinol 100 mg p.o. daily. 12. Symbicort 160/4.5 one puff p.o. twice daily. 13. Oxycodone 5 mg p.o. q.4 hours as needed. 14. Clonidine 0.1 mg p.o. q.6 hours as needed. ALLERGIES: To diazepam, hydrocodone, minoxidil, and penicillin. SOCIAL HISTORY: The patient is a resident of [facility]. The patient denies tobacco or alcohol use. PHYSICAL EXAMINATION: VITAL SIGNS: Temperature is 96.8, respirations 18, pulse 79, and blood pressure 150/69. GENERAL: The patient is a well-developed and well-nourished female, in no apparent distress. HEENT: Eyes, pupils equal and responsive to light and accommodation. Extraocular movements are intact. NECK: Supple without lymphadenopathy. CHEST: Lungs are clear to auscultation bilaterally without wheezes or rales. CARDIOVASCULAR: Regular rhythm and rate. S1, S2 normal without murmurs, rubs, or gallops. ABDOMEN: Soft, nontender, and nondistended. Positive bowel sounds. No evidence of hepatosplenomegaly. Currently, no rebound or guarding noted. EXTREMITIES: There is pain to palpation, right lower extremity. There is erythema. Right lower extremity is warm to touch. NEUROLOGICAL: Cranial nerves II through XII are grossly intact without focal deficits. Motor strength is 5/5 bilaterally. Deep tendon reflexes are 2+ plantar. LABORATORY AND DIAGNOSTIC DATA: Laboratory studies, WBC 6.1, hemoglobin 10.7, hematocrit 35.1, and platelets 199,000. Sodium 135, potassium 4.9 chloride 103, CO2 25, BUN 35, creatinine 2.3, and glucose 102. BNP elevated at 1380. A venous duplex Doppler failed to demonstrate deep venous thrombosis right lower extremity. ASSESSMENT: This is an 82-year-old female with: 1. Cellulitis of the right leg. 2. Pain of the right leg. 3. Hypertension. 4. Diabetes type 2. 5. Asthma. 6. Cardiomyopathy. 7. Congestive heart failure. 8. Osteoarthritis. 9. Cerebrovascular disease. 10. Chronic renal failure. TREATMENT: 1. Cellulitis of the right leg. Blood cultures are pending. An Infectious Disease consultation has been obtained with Dr. Kelley. The patient has been started empirically on cefazolin. We will follow recommendations of Infectious Disease. 2. Hypertension. Continue metoprolol as above. 3. Diabetes, type 2. The patient has been started on a NovoLog sliding scale. Initial blood sugar was within normal limits. 4. Asthma. Continue Symbicort as above. 5. Cardiomyopathy/congestive heart failure. 6. Osteoarthritis. 7. Cerebrovascular disease, status post cerebrovascular accident. 8. Chronic renal failure. Aníbal Cuellar M.D. DR: KATTY JOB#: [id number] CC:
[2018-01-19] VITALS: BP 147/85
[2018-01-19 04:00] VITALS: BP 121/73
[2018-01-19 07:03] LABS: BASOPHILS % (AUTO) 0.9 % (0.0-2.0); EOSINOPHILS % (AUTO) 1.5 % (0.0-3.0); HEMOGLOBIN 9.2 G/DL (12.0-16.0); LYMPHOCYTES % (AUTO) 18.1 % (20.0-45.0); MEAN CORPUSCULAR VOLUME 88 FL (80-99); MONOCYTES % (AUTO) 11.6 % (1.0-10.0); PLATELET COUNT 192 K/UL (150-450); RED BLOOD COUNT 3.43 M/UL (4.20-5.40); RED CELL DISTRIBUTION WIDTH 16.2 % (11.6-14.8); WHITE BLOOD COUNT 5.3 K/UL (4.8-10.8)
[2018-01-19 07:22] LABS: IRON 27 ug/dL (50-175); TOTAL IRON BINDING CAPACITY 285 ug/dL (250-450)
[2018-01-19 07:24] LABS: % IRON SATURATION 9 % (15-50)
[2018-01-19 07:37] LABS: ANION GAP 7 mmol/L (5-15); BLOOD UREA NITROGEN 34 mg/dL (7-18); CALCIUM 8.7 MG/DL (8.5-10.1); CARBON DIOXIDE 25 MMOL/L (21-32); CHLORIDE 103 MMOL/L (98-107); CREATININE 2.6 MG/DL (0.55-1.30); FERRITIN 29 NG/ML (8-388); POTASSIUM 5.1 MMOL/L (3.5-5.1); SODIUM 135 MMOL/L (136-145)
[2018-01-19 08:00] VITALS: BP 133/81
[2018-01-19] MEDS: ceFAZolin sod 1 GM in NS 55 ML IVPB SCH ×2 (08:47→21:06)
[2018-01-19] MEDS: Furosemide 40mg tab ORAL SCH (08:48)
[2018-01-19] MEDS: Oxybutynin 5mg tab ORAL SCH (08:48)
[2018-01-19] MEDS: Allopurinol 100mg Tab ORAL SCH (08:48)
[2018-01-19] MEDS: Metoprolol Succinate XL 25mg tab ORAL SCH (08:49)
[2018-01-19] MEDS: Heparin 5000 units/ml inj SUBQ SCH ×2 (08:51→21:13)
--- NOTE | 2018-01-19 10:48 | GI Progress Note ---
Assessment/Plan Problems: (1) Therapeutic opioid-induced constipation (OIC) ICD Codes: K59.03 - Drug induced constipation; T40.2X5A - Adverse effect of other opioids, initial encounter SNOMED: 085422355188493 (2) Abdominal pain (3) Anemia ICD Codes: D64.9 - Anemia SNOMED: 652126516 Status: stable Status Narrative Discussed with Dr. Moran. Assessment/Plan bowel regime >> pt had BM yesterday >> cont colace TID + miralax, consider relistor SQ for OIC if indicated adv diet anemia work up >> iron deficient >> venofer OB stool r/o GI bleed monitor H&H, prn transfusions ppi fu labs The patient was seen and examined at bedside and all new and available data was reviewed in the patients chart. I agree with the above findings, impression and plan. (Patient seen earlier today. Signature stamp does not reflect patient encounter time.). - Cherri Moran MD Subjective Subjective feels better Objective Last 24 Hour Vital Signs Date Time Temp Pulse Resp B/P (MAP) Pulse Ox O2 Delivery O2 Flow Rate FiO2 01/19/18 08:49 81 133/81 01/19/18 08:49 133/81 01/19/18 08:00 97.3 81 20 133/81 97 97.3 01/19/18 04:00 97.0 81 20 121/73 90 97.0 01/19/18 00:00 97.2 71 20 147/85 87 97.2 01/18/18 20:40 122/66 01/18/18 20:00 97.9 74 20 122/66 98 97.9 01/18/18 16:00 97.2 69 20 116/58 97 97.2 01/18/18 12:00 97.3 74 18 124/58 94 97.3 Intake and Output 01/18/18 01/19/18 19:00 07:00 Intake Total 325.0 ml Balance 325.0 ml IV Total 325.0 ml # Voids 1 1 # Bowel Movements 1 Laboratory Tests Test 01/18/18 16:15 01/19/18 06:00 01/19/18 06:15 Calcium (Send out) Pending Parathyroid Hormone (Intact) Pending White Blood Count 5.3 K/UL (4.8-10.8) Red Blood Count 3.43 M/UL (4.20-5.40) L Hemoglobin 9.2 G/DL (12.0-16.0) L Hematocrit 30.0 % (37.0-47.0) L Mean Corpuscular Volume 88 FL (80-99) Mean Corpuscular Hemoglobin 26.7 PG (27.0-31.0) L Mean Corpuscular Hemoglobin Concent 30.5 G/DL (32.0-36.0) L Red Cell Distribution Width 16.2 % (11.6-14.8) H Platelet Count 192 K/UL (150-450) Mean Platelet Volume 5.6 FL (6.5-10.1) L Neutrophils (%) (Auto) 68.0 % (45.0-75.0) Lymphocytes (%) (Auto) 18.1 % (20.0-45.0) L Monocytes (%) (Auto) 11.6 % (1.0-10.0) H Eosinophils (%) (Auto) 1.5 % (0.0-3.0) Basophils (%) (Auto) 0.9 % (0.0-2.0) Reticulocyte Count Pending Prothrombin Time 10.8 SEC (9.30-11.50) Prothromb Time International Ratio 1.0 (0.9-1.1) Activated Partial Thromboplast Time 27 SEC (23-33) Sodium Level 135 MMOL/L (136-145) L Potassium Level 5.1 MMOL/L (3.5-5.1) Chloride Level 103 MMOL/L (98-107) Carbon Dioxide Level 25 MMOL/L (21-32) Anion Gap 7 mmol/L (5-15) Blood Urea Nitrogen 34 mg/dL (7-18) H Creatinine 2.6 MG/DL (0.55-1.30) H Estimat Glomerular Filtration Rate mL/min (>60) Glucose Level 89 MG/DL (74-106) Hemoglobin A1c 6.4 % (4.3-6.0) H Calcium Level 8.7 MG/DL (8.5-10.1) Magnesium Level 2.0 MG/DL (1.8-2.4) Iron Level 27 ug/dL (50-175) L Total Iron Binding Capacity 285 ug/dL (250-450) Percent Iron Saturation 9 % (15-50) L Unsaturated Iron Binding 258 ug/dL (112-346) Ferritin 29 NG/ML (8-388) Vitamin B12 Level 274 PG/ML (193-986) Folate 14.5 NG/ML (8.6-58.9) Thyroid Stimulating Hormone (TSH) 7.507 uiU/mL (0.358-3.740) Free Thyroxine 1.13 NG/DL (0.76-1.46) Urine Random Sodium 71 mmol/L (20-110) Urine Creatinine 77.6 MG/DL (30.0-125.0) Height (Feet): 5 Height (Inches): 2.00 Weight (Pounds): 185 General Appearance: WD/WN, no apparent distress, alert, overweight Cardiovascular: normal rate Respiratory/Chest: normal breath sounds, no respiratory distress Abdominal Exam: normal bowel sounds, non tender, soft Extremities: normal range of motion, non-tender Karen Horton N.P. Jan 19, 2018 10:48 SVETLANA MORAN Jan 28, 2018 08:25
[2018-01-19] MEDS ORDERED: Tubing IV Secondary IV ONE (11:07)
[2018-01-19] MEDS ORDERED: NS 500ML ONE (11:07)
[2018-01-19 12:00] VITALS: BP 130/62
--- NOTE | 2018-01-19 12:50 | Infectious Diseases Prog Note ---
Assessment/Plan Assessment/Plan Assessment: RLE cellulitis- r/o DVT Fever, improving -no leukocytosis -u.a wbc 5-10, nit neg, leuk +3; ucx >100K GNR, 10-20K GNR -CXR: no acute disease -Bcx NTD DM2 HTN asthma CVA/TIA hx DVT [facility] resident ? PNC allergy reported on EMR, however patient denies it Plan: -COntinue IV Ancef abx d#3 for cellulitis -01/18 SP IV Vanco #2 and Aztreonam #1 -f/u v. duplex -f/u cx -monitor CBC/BMP, temperatures -leg elevation Thank you for this consultation. Will continue to follow along with you. Discussed with RN Subjective Allergies: Coded Allergies: DIAZEPAM (Verified Allergy, Unknown, 10/07/11) HYDROCODONE (Verified Allergy, Unknown, 07/07/10) MINOXIDIL (Verified Allergy, Unknown, 07/07/10) NAME ALERT (Verified Adverse Reaction, Unknown, 07/13/08) Subjective afebrile in 36hrs no leukocytosis Bcx NTD v duplex p Objective Vital Signs Last 24 Hour Vital Signs Date Time Temp Pulse Resp B/P (MAP) Pulse Ox O2 Delivery O2 Flow Rate FiO2 01/19/18 08:49 81 133/81 01/19/18 08:49 133/81 01/19/18 08:00 97.3 81 20 133/81 97 97.3 01/19/18 04:00 97.0 81 20 121/73 90 97.0 01/19/18 00:00 97.2 71 20 147/85 87 97.2 01/18/18 20:40 122/66 01/18/18 20:00 97.9 74 20 122/66 98 97.9 01/18/18 16:00 97.2 69 20 116/58 97 97.2 Height (Feet): 5 Height (Inches): 2.00 Weight (Pounds): 185 Microbiology Date/Time Source Procedure Growth Status 01/17/18 19:50 Blood Blood Culture - Preliminary NO GROWTH AFTER 24 HOURS Resulted 01/17/18 19:40 Blood Blood Culture - Preliminary NO GROWTH AFTER 24 HOURS Resulted 01/17/18 19:50 Urine,Clean Catch Urine Culture - Preliminary Gram Negative Bacillus 1 Gram Negative Bacillus 2 Resulted Laboratory Tests Test 3/13/18 16:15 01/19/18 06:00 01/19/18 06:15 Calcium (Send out) Pending Parathyroid Hormone (Intact) Pending White Blood Count 5.3 K/UL (4.8-10.8) Red Blood Count 3.43 M/UL (4.20-5.40) L Hemoglobin 9.2 G/DL (12.0-16.0) L Hematocrit 30.0 % (37.0-47.0) L Mean Corpuscular Volume 88 FL (80-99) Mean Corpuscular Hemoglobin 26.7 PG (27.0-31.0) L Mean Corpuscular Hemoglobin Concent 30.5 G/DL (32.0-36.0) L Red Cell Distribution Width 16.2 % (11.6-14.8) H Platelet Count 192 K/UL (150-450) Mean Platelet Volume 5.6 FL (6.5-10.1) L Neutrophils (%) (Auto) 68.0 % (45.0-75.0) Lymphocytes (%) (Auto) 18.1 % (20.0-45.0) L Monocytes (%) (Auto) 11.6 % (1.0-10.0) H Eosinophils (%) (Auto) 1.5 % (0.0-3.0) Basophils (%) (Auto) 0.9 % (0.0-2.0) Reticulocyte Count 0.9 % (0.0-2.0) Prothrombin Time 10.8 SEC (9.30-11.50) Prothromb Time International Ratio 1.0 (0.9-1.1) Activated Partial Thromboplast Time 27 SEC (23-33) Sodium Level 135 MMOL/L (136-145) L Potassium Level 5.1 MMOL/L (3.5-5.1) Chloride Level 103 MMOL/L (98-107) Carbon Dioxide Level 25 MMOL/L (21-32) Anion Gap 7 mmol/L (5-15) Blood Urea Nitrogen 34 mg/dL (7-18) H Creatinine 2.6 MG/DL (0.55-1.30) H Estimat Glomerular Filtration Rate mL/min (>60) Glucose Level 89 MG/DL (74-106) Hemoglobin A1c 6.4 % (4.3-6.0) H Calcium Level 8.7 MG/DL (8.5-10.1) Magnesium Level 2.0 MG/DL (1.8-2.4) Iron Level 27 ug/dL (50-175) L Total Iron Binding Capacity 285 ug/dL (250-450) Percent Iron Saturation 9 % (15-50) L Unsaturated Iron Binding 258 ug/dL (112-346) Ferritin 29 NG/ML (8-388) Vitamin B12 Level 274 PG/ML (193-986) Folate 14.5 NG/ML (8.6-58.9) Thyroid Stimulating Hormone (TSH) 7.507 uiU/mL (0.358-3.740) Free Thyroxine 1.13 NG/DL (0.76-1.46) Urine Random Sodium 71 mmol/L (20-110) Urine Creatinine 77.6 MG/DL (30.0-125.0) Current Medications Medications (Trade) Dose Ordered Sig/Liss Route PRN Reason Start Time Stop Time Status Last Admin Dose Admin Acetaminophen (Tylenol) 650 mg Q4H PRN ORAL fever 01/17/18 22:15 02/16/18 22:14 Albuterol/ Ipratropium (Albuterol/ Ipratropium) 3 ml EVERY 4 HOURS PRN HHN Shortness of Breath 01/17/18 22:15 01/22/18 22:14 Allopurinol (Zyloprim) 100 mg DAILY ORAL 01/18/18 09:00 02/17/18 08:59 01/19/18 08:48 Bisacodyl (Dulcolax) 10 mg DAILYPRN PRN RECTAL Constipation 01/18/18 16:45 02/17/18 16:44 Cefazolin Sodium 1 gm/Sodium Chloride 55 ml @ 110 mls/hr EVERY 12 HOURS IVPB 01/18/18 21:00 01/25/18 20:59 01/19/18 08:47 Dextrose (Dextrose 50%) STAT PRN IV Hypoglycemia 01/17/18 22:15 02/16/18 22:14 Gabapentin (Neurontin) 300 mg QID ORAL 01/18/18 09:00 02/17/18 08:59 01/19/18 08:48 Heparin Sodium (Porcine) (Heparin 5000 units/ml) 5,000 units EVERY 12 HOURS SUBQ 01/18/18 09:00 02/17/18 08:59 01/19/18 08:51 Iron Sucrose 100 mg/Sodium Chloride 60 ml @ 240 mls/hr BEDTIME IV 01/19/18 21:00 01/21/18 21:14 Isosorbide Dinitrate (Isordil) 5 mg EVERY 12 HOURS ORAL 01/18/18 09:00 02/17/18 08:59 01/19/18 08:49 Metoprolol Succinate (Toprol XL) 25 mg DAILY ORAL 01/18/18 09:00 02/17/18 08:59 01/19/18 08:49 Nitroglycerin (Ntg) 0.4 mg Q5MIN PRN SL Prn Chest Pain 01/17/18 22:15 02/16/18 22:14 Ondansetron HCl (Zofran) 4 mg Q6H PRN IVP Nausea & Vomiting 01/17/18 22:15 02/16/18 22:14 01/18/18 08:46 Oxybutynin Chloride (Ditropan) 15 mg DAILY ORAL 01/18/18 09:00 02/17/18 08:59 01/19/18 08:48 Oxycodone HCl (Roxicodone) 30 mg Q8H PRN ORAL For Pain 01/17/18 22:15 01/24/18 22:14 01/18/18 20:41 Polyethylene Glycol (Miralax) 17 gm DAILYPRN PRN ORAL Constipation 01/17/18 22:15 02/16/18 22:14 Temazepam (Restoril) 15 mg HSPRN PRN ORAL Insomnia 01/17/18 22:15 01/24/18 22:14 Lillian Moss M.D. Jan 19, 2018 12:50
--- NOTE | 2018-01-19 13:17 | Nephrology Progress Note ---
Assessment/Plan Problem List: (1) HTN (hypertension) (2) Acute on chronic renal failure Assessment: worse (3) Gout (4) DM (diabetes mellitus) (5) Cellulitis of right lower extremity Plan DC Lasix follow BMP Discussed with SOPHIA carrington Subjective Subjective feels ok Objective Objective Last 24 Hour Vital Signs Date Time Temp Pulse Resp B/P (MAP) Pulse Ox O2 Delivery O2 Flow Rate FiO2 01/19/18 12:00 97.7 76 20 130/62 95 97.7 01/19/18 08:49 81 133/81 01/19/18 08:49 133/81 01/19/18 08:00 97.3 81 20 133/81 97 97.3 01/19/18 04:00 97.0 81 20 121/73 90 97.0 01/19/18 00:00 97.2 71 20 147/85 87 97.2 01/18/18 20:40 122/66 01/18/18 20:00 97.9 74 20 122/66 98 97.9 01/18/18 16:00 97.2 69 20 116/58 97 97.2 Intake and Output 01/18/18 01/19/18 19:00 07:00 Intake Total 325.0 ml Balance 325.0 ml IV Total 325.0 ml # Voids 1 1 # Bowel Movements 1 Laboratory Tests 01/18/18 16:15: Calcium (Send out) [Pending], Parathyroid Hormone (Intact) [Pending] 01/19/18 06:00: White Blood Count 5.3, Red Blood Count 3.43L, Hemoglobin 9.2L, Hematocrit 30.0L , Mean Corpuscular Volume 88, Mean Corpuscular Hemoglobin 26.7L, Mean Corpuscular Hemoglobin Concent 30.5L, Red Cell Distribution Width 16.2H, Platelet Count 192, Mean Platelet Volume 5.6L, Neutrophils (%) (Auto) 68.0, Lymphocytes (%) (Auto) 18.1L, Monocytes (%) (Auto) 11.6H, Eosinophils (%) (Auto ) 1.5, Basophils (%) (Auto) 0.9, Reticulocyte Count 0.9, Prothrombin Time 10.8, Prothromb Time International Ratio 1.0, Activated Partial Thromboplast Time 27, Sodium Level 135L, Potassium Level 5.1, Chloride Level 103, Carbon Dioxide Level 25, Anion Gap 7, Blood Urea Nitrogen 34H, Creatinine 2.6H, Estimat Glomerular Filtration Rate , Glucose Level 89, Hemoglobin A1c 6.4H, Calcium Level 8.7, Magnesium Level 2.0, Iron Level 27L, Total Iron Binding Capacity 285 , Percent Iron Saturation 9L, Unsaturated Iron Binding 258, Ferritin 29, Vitamin B12 Level 274, Folate 14.5, Thyroid Stimulating Hormone (TSH) 7.507H, Free Thyroxine 1.13 01/19/18 06:15: Urine Random Sodium 71, Urine Creatinine 77.6 Height (Feet): 5 Height (Inches): 2.00 Weight (Pounds): 185 Cardiovascular: normal rate Respiratory/Chest: lungs clear Extremities: severe edema PETEY FAIR Jan 19, 2018 13:17
--- NOTE | 2018-01-19 13:34 | Internal Med Progress Note ---
Subjective Date of Service: Jan 19, 2018 Physician Name Paul Mejia Attending Physician Christopher Villanueva MD Current Medications Medications (Trade) Dose Ordered Sig/Liss Route PRN Reason Start Time Stop Time Status Last Admin Dose Admin Acetaminophen (Tylenol) 650 mg Q4H PRN ORAL fever 01/17/18 22:15 02/16/18 22:14 Albuterol/ Ipratropium (Albuterol/ Ipratropium) 3 ml EVERY 4 HOURS PRN HHN Shortness of Breath 01/17/18 22:15 01/22/18 22:14 Allopurinol (Zyloprim) 100 mg DAILY ORAL 01/18/18 09:00 02/17/18 08:59 01/19/18 08:48 Bisacodyl (Dulcolax) 10 mg DAILYPRN PRN RECTAL Constipation 01/18/18 16:45 02/17/18 16:44 Cefazolin Sodium 1 gm/Sodium Chloride 55 ml @ 110 mls/hr EVERY 12 HOURS IVPB 01/18/18 21:00 01/25/18 20:59 01/19/18 08:47 Dextrose (Dextrose 50%) STAT PRN IV Hypoglycemia 01/17/18 22:15 02/16/18 22:14 Gabapentin (Neurontin) 300 mg QID ORAL 01/18/18 09:00 02/17/18 08:59 01/19/18 08:48 Heparin Sodium (Porcine) (Heparin 5000 units/ml) 5,000 units EVERY 12 HOURS SUBQ 01/18/18 09:00 02/17/18 08:59 01/19/18 08:51 Iron Sucrose 100 mg/Sodium Chloride 60 ml @ 240 mls/hr BEDTIME IV 01/19/18 21:00 01/21/18 21:14 Isosorbide Dinitrate (Isordil) 5 mg EVERY 12 HOURS ORAL 01/18/18 09:00 02/17/18 08:59 01/19/18 08:49 Metoprolol Succinate (Toprol XL) 25 mg DAILY ORAL 01/18/18 09:00 02/17/18 08:59 01/19/18 08:49 Nitroglycerin (Ntg) 0.4 mg Q5MIN PRN SL Prn Chest Pain 01/17/18 22:15 02/16/18 22:14 Ondansetron HCl (Zofran) 4 mg Q6H PRN IVP Nausea & Vomiting 01/17/18 22:15 02/16/18 22:14 01/18/18 08:46 Oxybutynin Chloride (Ditropan) 15 mg DAILY ORAL 01/18/18 09:00 02/17/18 08:59 01/19/18 08:48 Oxycodone HCl (Roxicodone) 30 mg Q8H PRN ORAL For Pain 01/17/18 22:15 01/24/18 22:14 01/18/18 20:41 Polyethylene Glycol (Miralax) 17 gm DAILYPRN PRN ORAL Constipation 01/17/18 22:15 02/16/18 22:14 Temazepam (Restoril) 15 mg HSPRN PRN ORAL Insomnia 01/17/18 22:15 01/24/18 22:14 Allergies: Coded Allergies: DIAZEPAM (Verified Allergy, Unknown, 10/07/11) HYDROCODONE (Verified Allergy, Unknown, 07/07/10) MINOXIDIL (Verified Allergy, Unknown, 07/07/10) NAME ALERT (Verified Adverse Reaction, Unknown, 07/13/08) ROS Limited/Unobtainable: No Constitutional: Reports: no symptoms HEENT: Reports: no symptoms Cardiovascular: Reports: no symptoms Respiratory: Reports: no symptoms Gastrointestinal/Abdominal: Reports: no symptoms Genitourinary: Reports: no symptoms Neurologic/Psychiatric: Reports: no symptoms Subjective 82 YO F admitted with right leg pain; now cellulitis right leg. Cover for Int Saúl-Dr Villanueva Objective Last Vital Signs Date Time Temp Pulse Resp B/P (MAP) Pulse Ox O2 Delivery O2 Flow Rate FiO2 01/19/18 12:00 97.7 76 20 130/62 95 97.7 01/18/18 01:07 Room Air General Appearance: WD/WN, alert, mild distress, obese EENT: PERRL/EOMI, normal ENT inspection, TMs normal Neck: non-tender, normal alignment, supple Cardiovascular: normal peripheral pulses, normal rate, regular rhythm, no gallop/murmur, no JVD Respiratory/Chest: chest wall non-tender, lungs clear, normal breath sounds, no respiratory distress, no accessory muscle use Abdomen: normal bowel sounds, non tender, soft, no organomegaly, no mass Extremities: normal range of motion, non-tender Edema: trace edema Neurologic: telemarketing representative II-XII grossly normal, no motor/sensory deficits Skin: normal pigmentation, warm/dry Laboratory Tests Test 01/18/18 16:15 01/19/18 06:00 01/19/18 06:15 Calcium (Send out) 8.5 mg/dL (8.7-10.3) L PTH (Intact) Whole Molecule Comment (.) Parathyroid Hormone (Intact) 135 pg/mL (15-65) H White Blood Count 5.3 K/UL (4.8-10.8) Red Blood Count 3.43 M/UL (4.20-5.40) L Hemoglobin 9.2 G/DL (12.0-16.0) L Hematocrit 30.0 % (37.0-47.0) L Mean Corpuscular Volume 88 FL (80-99) Mean Corpuscular Hemoglobin 26.7 PG (27.0-31.0) L Mean Corpuscular Hemoglobin Concent 30.5 G/DL (32.0-36.0) L Red Cell Distribution Width 16.2 % (11.6-14.8) H Platelet Count 192 K/UL (150-450) Mean Platelet Volume 5.6 FL (6.5-10.1) L Neutrophils (%) (Auto) 68.0 % (45.0-75.0) Lymphocytes (%) (Auto) 18.1 % (20.0-45.0) L Monocytes (%) (Auto) 11.6 % (1.0-10.0) H Eosinophils (%) (Auto) 1.5 % (0.0-3.0) Basophils (%) (Auto) 0.9 % (0.0-2.0) Reticulocyte Count 0.9 % (0.0-2.0) Prothrombin Time 10.8 SEC (9.30-11.50) Prothromb Time International Ratio 1.0 (0.9-1.1) Activated Partial Thromboplast Time 27 SEC (23-33) Sodium Level 135 MMOL/L (136-145) L Potassium Level 5.1 MMOL/L (3.5-5.1) Chloride Level 103 MMOL/L (98-107) Carbon Dioxide Level 25 MMOL/L (21-32) Anion Gap 7 mmol/L (5-15) Blood Urea Nitrogen 34 mg/dL (7-18) H Creatinine 2.6 MG/DL (0.55-1.30) H Estimat Glomerular Filtration Rate mL/min (>60) Glucose Level 89 MG/DL (74-106) Hemoglobin A1c 6.4 % (4.3-6.0) H Calcium Level 8.7 MG/DL (8.5-10.1) Magnesium Level 2.0 MG/DL (1.8-2.4) Iron Level 27 ug/dL (50-175) L Total Iron Binding Capacity 285 ug/dL (250-450) Percent Iron Saturation 9 % (15-50) L Unsaturated Iron Binding 258 ug/dL (112-346) Ferritin 29 NG/ML (8-388) Vitamin B12 Level 274 PG/ML (193-986) Folate 14.5 NG/ML (8.6-58.9) Thyroid Stimulating Hormone (TSH) 7.507 uiU/mL (0.358-3.740) Free Thyroxine 1.13 NG/DL (0.76-1.46) Urine Random Sodium 71 mmol/L (20-110) Urine Creatinine 77.6 MG/DL (30.0-125.0) Microbiology Date/Time Source Procedure Growth Status 01/17/18 19:50 Blood Blood Culture - Preliminary NO GROWTH AFTER 24 HOURS Resulted 01/17/18 19:40 Blood Blood Culture - Preliminary NO GROWTH AFTER 24 HOURS Resulted 01/17/18 19:50 Urine,Clean Catch Urine Culture - Preliminary Gram Negative Bacillus 1 Gram Negative Bacillus 2 Resulted Intake and Output 01/18/18 01/19/18 19:00 07:00 Intake Total 325.0 ml Balance 325.0 ml IV Total 325.0 ml # Voids 1 1 # Bowel Movements 1 Assessment/Plan Problem List: (1) Cerebral vascular disease (2) Leg pain, right Assessment & Plan: due to cellulitis (3) Cellulitis of right lower extremity Assessment & Plan: continue vanco, cefazolin and aztreonam per ID (4) DM (diabetes mellitus) (5) Asthma (6) HTN (hypertension) Assessment & Plan: Continue toprol (7) Congestive heart failure (8) Acute on chronic renal failure Assessment & Plan: See nephrology note. PAUL MEJIA Jan 19, 2018 13:33
[2018-01-19 16:00] VITALS: BP 119/64
--- NOTE | 2018-01-19 17:57 | Pulmonology Progress Note ---
Assessment/Plan Problems: (1) Cellulitis (2) Asthma (3) CKD (chronic kidney disease) (4) HTN (hypertension) (5) Diabetes mellitus Assessment/Plan improving continue abx check cultures renal function stable Subjective ROS Limited/Unobtainable: No Interval Events: feeling better Allergies: Coded Allergies: DIAZEPAM (Verified Allergy, Unknown, 10/07/11) HYDROCODONE (Verified Allergy, Unknown, 07/07/10) MINOXIDIL (Verified Allergy, Unknown, 07/07/10) NAME ALERT (Verified Adverse Reaction, Unknown, 07/13/08) Objective Last 24 Hour Vital Signs Date Time Temp Pulse Resp B/P (MAP) Pulse Ox O2 Delivery O2 Flow Rate FiO2 01/19/18 16:00 97.7 80 20 119/64 97 Room Air 97.7 01/19/18 12:00 97.7 76 20 130/62 95 97.7 01/19/18 08:49 81 133/81 01/19/18 08:49 133/81 01/19/18 08:00 97.3 81 20 133/81 97 97.3 01/19/18 04:00 97.0 81 20 121/73 90 97.0 01/19/18 00:00 97.2 71 20 147/85 87 97.2 01/18/18 20:40 122/66 01/18/18 20:00 97.9 74 20 122/66 98 97.9 Intake and Output 01/18/18 01/19/18 19:00 07:00 Intake Total 325.0 ml Balance 325.0 ml IV Total 325.0 ml # Voids 1 1 # Bowel Movements 1 Objective General Appearance: WD/WN HEENT: normocephalic, anicteric Respiratory/Chest: chest wall non-tender, lungs clear Breasts: no masses Cardiovascular: normal peripheral pulses Genitourinary: normal external genitalia Extremities: no cyanosis Skin: no rash Microbiology Date/Time Source Procedure Growth Status 01/17/18 19:50 Blood Blood Culture - Preliminary NO GROWTH AFTER 24 HOURS Resulted 01/17/18 19:40 Blood Blood Culture - Preliminary NO GROWTH AFTER 24 HOURS Resulted 01/17/18 19:50 Urine,Clean Catch Urine Culture - Preliminary Gram Negative Bacillus 1 Gram Negative Bacillus 2 Resulted Laboratory Tests 01/19/18 06:00: White Blood Count 5.3, Red Blood Count 3.43L, Hemoglobin 9.2L, Hematocrit 30.0L , Mean Corpuscular Volume 88, Mean Corpuscular Hemoglobin 26.7L, Mean Corpuscular Hemoglobin Concent 30.5L, Red Cell Distribution Width 16.2H, Platelet Count 192, Mean Platelet Volume 5.6L, Neutrophils (%) (Auto) 68.0, Lymphocytes (%) (Auto) 18.1L, Monocytes (%) (Auto) 11.6H, Eosinophils (%) (Auto ) 1.5, Basophils (%) (Auto) 0.9, Reticulocyte Count 0.9, Prothrombin Time 10.8, Prothromb Time International Ratio 1.0, Activated Partial Thromboplast Time 27, Sodium Level 135L, Potassium Level 5.1, Chloride Level 103, Carbon Dioxide Level 25, Anion Gap 7, Blood Urea Nitrogen 34H, Creatinine 2.6H, Estimat Glomerular Filtration Rate , Glucose Level 89, Hemoglobin A1c 6.4H, Calcium Level 8.7, Magnesium Level 2.0, Iron Level 27L, Total Iron Binding Capacity 285 , Percent Iron Saturation 9L, Unsaturated Iron Binding 258, Ferritin 29, Vitamin B12 Level 274, Folate 14.5, Thyroid Stimulating Hormone (TSH) 7.507H, Free Thyroxine 1.13, Triiodothyonine (T3) [Pending], Triiodothyronine (T3) Uptake [Pending] 01/19/18 06:15: Urine Random Sodium 71, Urine Creatinine 77.6 Current Medications Medications (Trade) Dose Ordered Sig/Liss Route PRN Reason Start Time Stop Time Status Last Admin Dose Admin Acetaminophen (Tylenol) 650 mg Q4H PRN ORAL fever 01/17/18 22:15 02/16/18 22:14 Albuterol/ Ipratropium (Albuterol/ Ipratropium) 3 ml EVERY 4 HOURS PRN HHN Shortness of Breath 01/17/18 22:15 01/22/18 22:14 Allopurinol (Zyloprim) 100 mg DAILY ORAL 01/18/18 09:00 02/17/18 08:59 01/19/18 08:48 Bisacodyl (Dulcolax) 10 mg DAILYPRN PRN RECTAL Constipation 01/18/18 16:45 02/17/18 16:44 Cefazolin Sodium 1 gm/Sodium Chloride 55 ml @ 110 mls/hr EVERY 12 HOURS IVPB 01/18/18 21:00 01/25/18 20:59 01/19/18 08:47 Dextrose (Dextrose 50%) STAT PRN IV Hypoglycemia 01/17/18 22:15 02/16/18 22:14 Gabapentin (Neurontin) 300 mg QID ORAL 01/18/18 09:00 02/17/18 08:59 01/19/18 13:37 Heparin Sodium (Porcine) (Heparin 5000 units/ml) 5,000 units EVERY 12 HOURS SUBQ 01/18/18 09:00 02/17/18 08:59 01/19/18 08:51 Iron Sucrose 100 mg/Sodium Chloride 60 ml @ 240 mls/hr BEDTIME IV 01/19/18 21:00 01/21/18 21:14 Isosorbide Dinitrate (Isordil) 5 mg EVERY 12 HOURS ORAL 01/18/18 09:00 02/17/18 08:59 01/19/18 08:49 Metoprolol Succinate (Toprol XL) 25 mg DAILY ORAL 01/18/18 09:00 02/17/18 08:59 01/19/18 08:49 Nitroglycerin (Ntg) 0.4 mg Q5MIN PRN SL Prn Chest Pain 01/17/18 22:15 02/16/18 22:14 Ondansetron HCl (Zofran) 4 mg Q6H PRN IVP Nausea & Vomiting 01/17/18 22:15 02/16/18 22:14 01/18/18 08:46 Oxybutynin Chloride (Ditropan) 15 mg DAILY ORAL 01/18/18 09:00 02/17/18 08:59 01/19/18 08:48 Oxycodone HCl (Roxicodone) 30 mg Q8H PRN ORAL For Pain 01/17/18 22:15 01/24/18 22:14 01/18/18 20:41 Polyethylene Glycol (Miralax) 17 gm DAILYPRN PRN ORAL Constipation 01/17/18 22:15 02/16/18 22:14 Temazepam (Restoril) 15 mg HSPRN PRN ORAL Insomnia 01/17/18 22:15 01/24/18 22:14 Roberta Durán MD Jan 19, 2018 17:57
[2018-01-19 20:00] VITALS: BP 142/74
[2018-01-19] MEDS: Iron Sucrose 100 MG in NS 55 ML IV SCH (21:05)
[2018-01-19] MEDS: oxyCODONE 15mg IR tab ORAL PRN (21:05)
[2018-01-20] VITALS: BP 118/56
[2018-01-20 04:00] VITALS: BP 110/56
[2018-01-20 06:49] LABS: BASOPHILS % (AUTO) 0.7 % (0.0-2.0); EOSINOPHILS % (AUTO) 2.9 % (0.0-3.0); HEMATOCRIT 30.6 % (37.0-47.0); HEMOGLOBIN 9.3 G/DL (12.0-16.0); LYMPHOCYTES % (AUTO) 16.8 % (20.0-45.0); MEAN CORPUSCULAR VOLUME 88 FL (80-99); MONOCYTES % (AUTO) 10.2 % (1.0-10.0); NEUTROPHILS % (AUTO) 69.3 % (45.0-75.0); PLATELET COUNT 185 K/UL (150-450); RED BLOOD COUNT 3.47 M/UL (4.20-5.40); RED CELL DISTRIBUTION WIDTH 16.2 % (11.6-14.8); WHITE BLOOD COUNT 5.9 K/UL (4.8-10.8)
[2018-01-20] MEDS: oxyCODONE 15mg IR tab ORAL PRN (06:51)
[2018-01-20 07:27] LABS: ANION GAP 7 mmol/L (5-15); BLOOD UREA NITROGEN 32 mg/dL (7-18); CALCIUM 8.2 MG/DL (8.5-10.1); CARBON DIOXIDE 25 MMOL/L (21-32); CHLORIDE 103 MMOL/L (98-107); CREATININE 2.6 MG/DL (0.55-1.30); PHOSPHORUS 4.8 MG/DL (2.5-4.9); POTASSIUM 4.9 MMOL/L (3.5-5.1); SODIUM 135 MMOL/L (136-145)
[2018-01-20 08:00] VITALS: BP 116/62
--- NOTE | 2018-01-20 08:55 | Diagnostic Imaging Report ---
Indication: Acute renal failure, abnormal renal function tests Technique: Grayscale and duplex images of the kidneys, retroperitoneum, and bladder were obtained. Comparison: none Findings: Right kidney measures 8.6 cm in length. Left kidney measures 7.7 cm in length. Both kidneys demonstrate normal echogenicity. No hydronephrosis. No focal abnormality. Normal inferior vena cava. Bladder is normal, calculated volume 236 mL. Patient was able to void. Impression: Small bilateral kidneys. Negative for hydronephrosis 236 milliliter bladder volume. Patient unable to void at that volume .
[2018-01-20] MEDS: ceFAZolin sod 1 GM in NS 55 ML IVPB SCH ×2 (09:26→20:53)
[2018-01-20] MEDS: Oxybutynin 5mg tab ORAL SCH (09:26)
[2018-01-20] MEDS: Metoprolol Succinate XL 25mg tab ORAL SCH (09:27)
[2018-01-20] MEDS: Allopurinol 100mg Tab ORAL SCH (09:27)
[2018-01-20] MEDS: Heparin 5000 units/ml inj SUBQ SCH ×2 (09:28→20:55)
--- NOTE | 2018-01-20 09:54 | Nephrology Progress Note ---
Assessment/Plan Problem List: (1) HTN (hypertension) (2) Acute on chronic renal failure Assessment: no change (3) Gout (4) DM (diabetes mellitus) (5) Cellulitis of right lower extremity Plan keep off diuretics follow BMP Discussed with SOPHIA carrington Subjective Subjective coughing and retching Objective Objective Last 24 Hour Vital Signs Date Time Temp Pulse Resp B/P (MAP) Pulse Ox O2 Delivery O2 Flow Rate FiO2 01/20/18 09:27 82 116/62 01/20/18 09:26 116/62 01/20/18 08:00 99.1 82 18 116/62 82 Room Air 99.1 01/20/18 04:00 98.1 66 18 110/56 94 Room Air 98.1 01/20/18 00:00 99.0 77 18 118/56 94 Room Air 99.0 01/19/18 21:04 142/74 01/19/18 20:00 98.3 75 18 142/74 96 Room Air 98.3 01/19/18 19:37 81 18 Room Air 01/19/18 16:00 97.7 80 20 119/64 97 Room Air 97.7 01/19/18 12:00 97.7 76 20 130/62 95 97.7 Intake and Output 01/19/18 01/20/18 19:00 07:00 Intake Total 300 ml 350 ml Balance 300 ml 350 ml Intake Oral 300 ml IV Total 350 ml # Voids 4 2 Laboratory Tests 01/20/18 05:50: White Blood Count 5.9, Red Blood Count 3.47L, Hemoglobin 9.3L, Hematocrit 30.6L , Mean Corpuscular Volume 88, Mean Corpuscular Hemoglobin 26.7L, Mean Corpuscular Hemoglobin Concent 30.2L, Red Cell Distribution Width 16.2H, Platelet Count 185, Mean Platelet Volume 5.9L, Neutrophils (%) (Auto) 69.3, Lymphocytes (%) (Auto) 16.8L, Monocytes (%) (Auto) 10.2H, Eosinophils (%) (Auto ) 2.9, Basophils (%) (Auto) 0.7, Sodium Level 135L, Potassium Level 4.9, Chloride Level 103, Carbon Dioxide Level 25, Anion Gap 7, Blood Urea Nitrogen 32H, Creatinine 2.6H, Estimat Glomerular Filtration Rate , Glucose Level 91, Calcium Level 8.2L, Phosphorus Level 4.8 Height (Feet): 5 Height (Inches): 2.00 Weight (Pounds): 185 Cardiovascular: normal rate Respiratory/Chest: lungs clear Extremities: severe edema PETEY FAIR Jan 20, 2018 09:54
--- NOTE | 2018-01-20 10:57 | GI Progress Note ---
Assessment/Plan Problems: (1) Therapeutic opioid-induced constipation (OIC) ICD Codes: K59.03 - Drug induced constipation; T40.2X5A - Adverse effect of other opioids, initial encounter SNOMED: 043125743103815 (2) Abdominal pain (3) Anemia ICD Codes: D64.9 - Anemia SNOMED: 017024977 Status: stable Status Narrative Discussed with Dr. Moran. Assessment/Plan bowel regime >> cont colace TID + miralax, consider relistor SQ for OIC if indicated adv diet anemia work up >> iron deficient >> venofer OB stool r/o GI bleed pending monitor H&H, prn transfusions ppi fu labs dc planning Subjective Subjective feels better Objective Last 24 Hour Vital Signs Date Time Temp Pulse Resp B/P (MAP) Pulse Ox O2 Delivery O2 Flow Rate FiO2 01/20/18 09:27 82 116/62 01/20/18 09:26 116/62 01/20/18 08:00 99.1 82 18 116/62 82 Room Air 99.1 01/20/18 04:00 98.1 66 18 110/56 94 Room Air 98.1 01/20/18 00:00 99.0 77 18 118/56 94 Room Air 99.0 01/19/18 21:04 142/74 01/19/18 20:00 98.3 75 18 142/74 96 Room Air 98.3 01/19/18 19:37 81 18 Room Air 01/19/18 16:00 97.7 80 20 119/64 97 Room Air 97.7 01/19/18 12:00 97.7 76 20 130/62 95 97.7 Intake and Output 01/19/18 01/20/18 19:00 07:00 Intake Total 300 ml 350 ml Balance 300 ml 350 ml Intake Oral 300 ml IV Total 350 ml # Voids 4 2 Laboratory Tests Test 01/20/18 05:50 White Blood Count 5.9 K/UL (4.8-10.8) Red Blood Count 3.47 M/UL (4.20-5.40) L Hemoglobin 9.3 G/DL (12.0-16.0) L Hematocrit 30.6 % (37.0-47.0) L Mean Corpuscular Volume 88 FL (80-99) Mean Corpuscular Hemoglobin 26.7 PG (27.0-31.0) L Mean Corpuscular Hemoglobin Concent 30.2 G/DL (32.0-36.0) L Red Cell Distribution Width 16.2 % (11.6-14.8) H Platelet Count 185 K/UL (150-450) Mean Platelet Volume 5.9 FL (6.5-10.1) L Neutrophils (%) (Auto) 69.3 % (45.0-75.0) Lymphocytes (%) (Auto) 16.8 % (20.0-45.0) L Monocytes (%) (Auto) 10.2 % (1.0-10.0) H Eosinophils (%) (Auto) 2.9 % (0.0-3.0) Basophils (%) (Auto) 0.7 % (0.0-2.0) Sodium Level 135 MMOL/L (136-145) L Potassium Level 4.9 MMOL/L (3.5-5.1) Chloride Level 103 MMOL/L (98-107) Carbon Dioxide Level 25 MMOL/L (21-32) Anion Gap 7 mmol/L (5-15) Blood Urea Nitrogen 32 mg/dL (7-18) H Creatinine 2.6 MG/DL (0.55-1.30) H Estimat Glomerular Filtration Rate mL/min (>60) Glucose Level 91 MG/DL (74-106) Calcium Level 8.2 MG/DL (8.5-10.1) L Phosphorus Level 4.8 MG/DL (2.5-4.9) Height (Feet): 5 Height (Inches): 2.00 Weight (Pounds): 185 General Appearance: WD/WN, no apparent distress, alert Cardiovascular: normal rate Respiratory/Chest: normal breath sounds, no respiratory distress Abdominal Exam: normal bowel sounds, non tender, soft Extremities: normal range of motion, non-tender Karen Horton N.P. Jan 20, 2018 10:57
[2018-01-20 11:51] VITALS: BP 118/71
--- NOTE | 2018-01-20 15:03 | Pulmonology Progress Note ---
Assessment/Plan Problems: (1) Cellulitis (2) Asthma (3) CKD (chronic kidney disease) (4) HTN (hypertension) (5) Diabetes mellitus Assessment/Plan get cxr mykolytics chest pt sputum for c/s improving continue abx check cultures renal function stable Subjective ROS Limited/Unobtainable: No Constitutional: Reports: no symptoms HEENT: Repors: no symptoms Respiratory: Reports: no symptoms Allergies: Coded Allergies: DIAZEPAM (Verified Allergy, Unknown, 10/07/11) HYDROCODONE (Verified Allergy, Unknown, 07/07/10) MINOXIDIL (Verified Allergy, Unknown, 07/07/10) NAME ALERT (Verified Adverse Reaction, Unknown, 07/13/08) Objective Last 24 Hour Vital Signs Date Time Temp Pulse Resp B/P (MAP) Pulse Ox O2 Delivery O2 Flow Rate FiO2 01/20/18 11:51 98.1 69 18 118/71 69 Room Air 98.1 01/20/18 09:27 82 116/62 01/20/18 09:26 116/62 01/20/18 08:00 99.1 82 18 116/62 82 Room Air 99.1 01/20/18 04:00 98.1 66 18 110/56 94 Room Air 98.1 01/20/18 00:00 99.0 77 18 118/56 94 Room Air 99.0 01/19/18 21:04 142/74 01/19/18 20:00 98.3 75 18 142/74 96 Room Air 98.3 01/19/18 19:37 81 18 Room Air 01/19/18 16:00 97.7 80 20 119/64 97 Room Air 97.7 Intake and Output 01/19/18 01/20/18 19:00 07:00 Intake Total 300 ml 350 ml Balance 300 ml 350 ml Intake Oral 300 ml IV Total 350 ml # Voids 4 2 Objective General Appearance: WD/WN HEENT: normocephalic, anicteric Respiratory/Chest: chest wall non-tender, lungs clear Breasts: no masses Cardiovascular: normal peripheral pulses Genitourinary: normal external genitalia Extremities: no cyanosis Skin: no rash Microbiology Date/Time Source Procedure Growth Status 01/17/18 19:50 Blood Blood Culture - Preliminary NO GROWTH AFTER 48 HOURS Resulted 01/17/18 19:40 Blood Blood Culture - Preliminary NO GROWTH AFTER 48 HOURS Resulted 01/17/18 19:50 Urine,Clean Catch Urine Culture - Final Escherichia Coli Proteus Mirabilis Complete Laboratory Tests 01/20/18 05:50: White Blood Count 5.9, Red Blood Count 3.47L, Hemoglobin 9.3L, Hematocrit 30.6L , Mean Corpuscular Volume 88, Mean Corpuscular Hemoglobin 26.7L, Mean Corpuscular Hemoglobin Concent 30.2L, Red Cell Distribution Width 16.2H, Platelet Count 185, Mean Platelet Volume 5.9L, Neutrophils (%) (Auto) 69.3, Lymphocytes (%) (Auto) 16.8L, Monocytes (%) (Auto) 10.2H, Eosinophils (%) (Auto ) 2.9, Basophils (%) (Auto) 0.7, Sodium Level 135L, Potassium Level 4.9, Chloride Level 103, Carbon Dioxide Level 25, Anion Gap 7, Blood Urea Nitrogen 32H, Creatinine 2.6H, Estimat Glomerular Filtration Rate , Glucose Level 91, Calcium Level 8.2L, Phosphorus Level 4.8 Current Medications Medications (Trade) Dose Ordered Sig/Liss Route PRN Reason Start Time Stop Time Status Last Admin Dose Admin Acetaminophen (Tylenol) 650 mg Q4H PRN ORAL fever 01/17/18 22:15 02/16/18 22:14 Albuterol/ Ipratropium (Albuterol/ Ipratropium) 3 ml EVERY 4 HOURS PRN HHN Shortness of Breath 01/17/18 22:15 01/22/18 22:14 Allopurinol (Zyloprim) 100 mg DAILY ORAL 01/18/18 09:00 02/17/18 08:59 01/20/18 09:27 Bisacodyl (Dulcolax) 10 mg DAILYPRN PRN RECTAL Constipation 01/18/18 16:45 02/17/18 16:44 Cefazolin Sodium 1 gm/Sodium Chloride 55 ml @ 110 mls/hr EVERY 12 HOURS IVPB 01/18/18 21:00 01/25/18 20:59 01/20/18 09:26 Dextrose (Dextrose 50%) STAT PRN IV Hypoglycemia 01/17/18 22:15 02/16/18 22:14 Gabapentin (Neurontin) 300 mg QID ORAL 01/18/18 09:00 02/17/18 08:59 01/20/18 09:26 Heparin Sodium (Porcine) (Heparin 5000 units/ml) 5,000 units EVERY 12 HOURS SUBQ 01/18/18 09:00 02/17/18 08:59 01/20/18 09:28 Iron Sucrose 100 mg/Sodium Chloride 60 ml @ 240 mls/hr BEDTIME IV 01/19/18 21:00 01/21/18 21:14 01/19/18 21:05 Isosorbide Dinitrate (Isordil) 5 mg EVERY 12 HOURS ORAL 01/18/18 09:00 02/17/18 08:59 01/20/18 09:26 Metoprolol Succinate (Toprol XL) 25 mg DAILY ORAL 01/18/18 09:00 02/17/18 08:59 01/20/18 09:27 Nitroglycerin (Ntg) 0.4 mg Q5MIN PRN SL Prn Chest Pain 01/17/18 22:15 02/16/18 22:14 Ondansetron HCl (Zofran) 4 mg Q6H PRN IVP Nausea & Vomiting 01/17/18 22:15 02/16/18 22:14 01/18/18 08:46 Oxybutynin Chloride (Ditropan) 15 mg DAILY ORAL 01/18/18 09:00 02/17/18 08:59 01/20/18 09:26 Oxycodone HCl (Roxicodone) 30 mg Q8H PRN ORAL For Pain 01/17/18 22:15 01/24/18 22:14 01/20/18 06:51 Polyethylene Glycol (Miralax) 17 gm DAILYPRN PRN ORAL Constipation 01/17/18 22:15 02/16/18 22:14 Temazepam (Restoril) 15 mg HSPRN PRN ORAL Insomnia 01/17/18 22:15 01/24/18 22:14 Roberta Durán MD Jan 20, 2018 15:03
--- NOTE | 2018-01-20 15:04 | Diagnostic Imaging Report ---
Indication: Cough Technique: One view of the chest Comparison: 01/17/2018 Findings: Suboptimal inspiration, with crowding of the bronchovascular markings. Bands of atelectasis or more likely scarring are seen in the bilateral perihilar regions. There is generalized mild interstitial prominence, may in part be an artifact of less optimal inspiration, but mild congestion also possible. The heart remains borderline enlarged. Impression: Equivocal mild interstitial congestion, if real then new or increased from previous study of 2 days earlier Other stable findings as described
[2018-01-20] MEDS ORDERED: guaiFENesin 100mg/5ml Liq ud ORAL PRN (15:15)
--- NOTE | 2018-01-20 15:47 | Infectious Diseases Prog Note ---
Assessment/Plan Assessment/Plan Assessment: RLE cellulitis; improving- -v/ duplex: no DVT, v. insufficiency b/l Fever, improving -no leukocytosis -u.a wbc 5-10, nit neg, leuk +3; ucx >100K E.coli (S Ancef), 10-20K P. mirabilis (s Ancef)--> Asymptomatic bacteriuria -CXR: no acute disease -Bcx NTD Cough- likely due to pulmonary congestion -CXR 01/20: Equivocal mild interstitial congestion, if real then new or increased from previous study of 2 days earlier DM2 HTN asthma CVA/TIA hx DVT SNF resident ? PNC allergy reported on EMR, however patient denies it Plan: -COntinue IV Ancef abx d#02/12-10 for cellulitis ; upon discharge can transition to PO keflex 250mg q 8h -01/18 SP IV Vanco #2 and Aztreonam #1 -f/u cx -monitor CBC/BMP, temperatures -leg elevation Thank you for this consultation. Will continue to follow along with you. Discussed with RN Subjective Allergies: Coded Allergies: DIAZEPAM (Verified Allergy, Unknown, 10/07/11) HYDROCODONE (Verified Allergy, Unknown, 07/07/10) MINOXIDIL (Verified Allergy, Unknown, 07/07/10) NAME ALERT (Verified Adverse Reaction, Unknown, 07/13/08) Subjective afebrile in ~72hrs no leukocytosis Bcx NTD CXR with congestion +cough Objective Vital Signs Last 24 Hour Vital Signs Date Time Temp Pulse Resp B/P (MAP) Pulse Ox O2 Delivery O2 Flow Rate FiO2 01/20/18 11:51 98.1 69 18 118/71 69 Room Air 98.1 01/20/18 09:27 82 116/62 01/20/18 09:26 116/62 01/20/18 08:00 99.1 82 18 116/62 82 Room Air 99.1 01/20/18 04:00 98.1 66 18 110/56 94 Room Air 98.1 01/20/18 00:00 99.0 77 18 118/56 94 Room Air 99.0 01/19/18 21:04 142/74 01/19/18 20:00 98.3 75 18 142/74 96 Room Air 98.3 01/19/18 19:37 81 18 Room Air 01/19/18 16:00 97.7 80 20 119/64 97 Room Air 97.7 Height (Feet): 5 Height (Inches): 2.00 Weight (Pounds): 185 Objective General Appearance: WD/WN Lines, tubes and drains: peripheral HEENT: normocephalic Neck: non-tender, normal alignment Respiratory/Chest: chest wall non-tender, lungs clear Breasts: no masses Cardiovascular/Chest: normal rate Abdomen: normal bowel sounds Genitourinary/Rectal: normal genital exam Extremities: normal range of motion R >L w/ venous stasis changes. R leg +erythematmous, mildly warm and TTP non pitting edema L>R; improving Microbiology Date/Time Source Procedure Growth Status 01/17/18 19:50 Blood Blood Culture - Preliminary NO GROWTH AFTER 48 HOURS Resulted 01/17/18 19:40 Blood Blood Culture - Preliminary NO GROWTH AFTER 48 HOURS Resulted 01/17/18 19:50 Urine,Clean Catch Urine Culture - Final Escherichia Coli Proteus Mirabilis Complete Laboratory Tests Test 01/20/18 05:50 White Blood Count 5.9 K/UL (4.8-10.8) Red Blood Count 3.47 M/UL (4.20-5.40) L Hemoglobin 9.3 G/DL (12.0-16.0) L Hematocrit 30.6 % (37.0-47.0) L Mean Corpuscular Volume 88 FL (80-99) Mean Corpuscular Hemoglobin 26.7 PG (27.0-31.0) L Mean Corpuscular Hemoglobin Concent 30.2 G/DL (32.0-36.0) L Red Cell Distribution Width 16.2 % (11.6-14.8) H Platelet Count 185 K/UL (150-450) Mean Platelet Volume 5.9 FL (6.5-10.1) L Neutrophils (%) (Auto) 69.3 % (45.0-75.0) Lymphocytes (%) (Auto) 16.8 % (20.0-45.0) L Monocytes (%) (Auto) 10.2 % (1.0-10.0) H Eosinophils (%) (Auto) 2.9 % (0.0-3.0) Basophils (%) (Auto) 0.7 % (0.0-2.0) Sodium Level 135 MMOL/L (136-145) L Potassium Level 4.9 MMOL/L (3.5-5.1) Chloride Level 103 MMOL/L (98-107) Carbon Dioxide Level 25 MMOL/L (21-32) Anion Gap 7 mmol/L (5-15) Blood Urea Nitrogen 32 mg/dL (7-18) H Creatinine 2.6 MG/DL (0.55-1.30) H Estimat Glomerular Filtration Rate mL/min (>60) Glucose Level 91 MG/DL (74-106) Calcium Level 8.2 MG/DL (8.5-10.1) L Phosphorus Level 4.8 MG/DL (2.5-4.9) Current Medications Medications (Trade) Dose Ordered Sig/Liss Route PRN Reason Start Time Stop Time Status Last Admin Dose Admin Acetaminophen (Tylenol) 650 mg Q4H PRN ORAL fever 01/17/18 22:15 02/16/18 22:14 Albuterol/ Ipratropium (Albuterol/ Ipratropium) 3 ml EVERY 4 HOURS PRN HHN Shortness of Breath 01/17/18 22:15 01/22/18 22:14 Allopurinol (Zyloprim) 100 mg DAILY ORAL 01/18/18 09:00 02/17/18 08:59 01/20/18 09:27 Aspirin (ASA) 81 mg DAILY NG 01/21/18 09:00 02/20/18 08:59 Bisacodyl (Dulcolax) 10 mg DAILYPRN PRN RECTAL Constipation 01/18/18 16:45 02/17/18 16:44 Cefazolin Sodium 1 gm/Sodium Chloride 55 ml @ 110 mls/hr EVERY 12 HOURS IVPB 01/18/18 21:00 01/25/18 20:59 01/20/18 09:26 Dextrose (Dextrose 50%) STAT PRN IV Hypoglycemia 01/17/18 22:15 02/16/18 22:14 Gabapentin (Neurontin) 300 mg QID ORAL 01/18/18 09:00 02/17/18 08:59 01/20/18 09:26 Guaifenesin (Robitussin) 100 mg Q4H PRN ORAL For Cough 01/20/18 15:15 02/19/18 15:14 Heparin Sodium (Porcine) (Heparin 5000 units/ml) 5,000 units EVERY 12 HOURS SUBQ 01/18/18 09:00 02/17/18 08:59 01/20/18 09:28 Iron Sucrose 100 mg/Sodium Chloride 60 ml @ 240 mls/hr BEDTIME IV 01/19/18 21:00 01/21/18 21:14 01/19/18 21:05 Isosorbide Dinitrate (Isordil) 5 mg EVERY 12 HOURS ORAL 01/18/18 09:00 02/17/18 08:59 01/20/18 09:26 Metoprolol Succinate (Toprol XL) 25 mg DAILY ORAL 01/18/18 09:00 02/17/18 08:59 01/20/18 09:27 Nitroglycerin (Ntg) 0.4 mg Q5MIN PRN SL Prn Chest Pain 01/17/18 22:15 02/16/18 22:14 Ondansetron HCl (Zofran) 4 mg Q6H PRN IVP Nausea & Vomiting 01/17/18 22:15 02/16/18 22:14 01/18/18 08:46 Oxybutynin Chloride (Ditropan) 15 mg DAILY ORAL 01/18/18 09:00 02/17/18 08:59 01/20/18 09:26 Oxycodone HCl (Roxicodone) 30 mg Q8H PRN ORAL For Pain 01/17/18 22:15 01/24/18 22:14 01/20/18 06:51 Polyethylene Glycol (Miralax) 17 gm DAILYPRN PRN ORAL Constipation 01/17/18 22:15 02/16/18 22:14 Temazepam (Restoril) 15 mg HSPRN PRN ORAL Insomnia 01/17/18 22:15 01/24/18 22:14 Lillian Moss M.D. Jan 20, 2018 15:47
[2018-01-20 16:00] VITALS: BP 153/76
--- NOTE | 2018-01-20 16:04 | Internal Med Progress Note ---
Subjective Date of Service: Jan 20, 2018 Physician Name Paul Mejia Attending Physician Christopher Villanueva MD Current Medications Medications (Trade) Dose Ordered Sig/Liss Route PRN Reason Start Time Stop Time Status Last Admin Dose Admin Acetaminophen (Tylenol) 650 mg Q4H PRN ORAL fever 01/17/18 22:15 02/16/18 22:14 Albuterol/ Ipratropium (Albuterol/ Ipratropium) 3 ml EVERY 4 HOURS PRN HHN Shortness of Breath 01/17/18 22:15 01/22/18 22:14 Allopurinol (Zyloprim) 100 mg DAILY ORAL 01/18/18 09:00 02/17/18 08:59 01/20/18 09:27 Aspirin (ASA) 81 mg DAILY NG 01/21/18 09:00 02/20/18 08:59 Bisacodyl (Dulcolax) 10 mg DAILYPRN PRN RECTAL Constipation 01/18/18 16:45 02/17/18 16:44 Cefazolin Sodium 1 gm/Sodium Chloride 55 ml @ 110 mls/hr EVERY 12 HOURS IVPB 01/18/18 21:00 01/25/18 20:59 01/20/18 09:26 Dextrose (Dextrose 50%) STAT PRN IV Hypoglycemia 01/17/18 22:15 02/16/18 22:14 Gabapentin (Neurontin) 300 mg QID ORAL 01/18/18 09:00 02/17/18 08:59 01/20/18 09:26 Guaifenesin (Robitussin) 100 mg Q4H PRN ORAL For Cough 01/20/18 15:15 02/19/18 15:14 Heparin Sodium (Porcine) (Heparin 5000 units/ml) 5,000 units EVERY 12 HOURS SUBQ 01/18/18 09:00 02/17/18 08:59 01/20/18 09:28 Iron Sucrose 100 mg/Sodium Chloride 60 ml @ 240 mls/hr BEDTIME IV 01/19/18 21:00 01/21/18 21:14 01/19/18 21:05 Isosorbide Dinitrate (Isordil) 5 mg EVERY 12 HOURS ORAL 01/18/18 09:00 02/17/18 08:59 01/20/18 09:26 Metoprolol Succinate (Toprol XL) 25 mg DAILY ORAL 01/18/18 09:00 02/17/18 08:59 01/20/18 09:27 Nitroglycerin (Ntg) 0.4 mg Q5MIN PRN SL Prn Chest Pain 01/17/18 22:15 02/16/18 22:14 Ondansetron HCl (Zofran) 4 mg Q6H PRN IVP Nausea & Vomiting 01/17/18 22:15 02/16/18 22:14 01/18/18 08:46 Oxybutynin Chloride (Ditropan) 15 mg DAILY ORAL 01/18/18 09:00 02/17/18 08:59 01/20/18 09:26 Oxycodone HCl (Roxicodone) 30 mg Q8H PRN ORAL For Pain 01/17/18 22:15 01/24/18 22:14 01/20/18 06:51 Polyethylene Glycol (Miralax) 17 gm DAILYPRN PRN ORAL Constipation 01/17/18 22:15 02/16/18 22:14 Temazepam (Restoril) 15 mg HSPRN PRN ORAL Insomnia 01/17/18 22:15 01/24/18 22:14 Allergies: Coded Allergies: DIAZEPAM (Verified Allergy, Unknown, 10/07/11) HYDROCODONE (Verified Allergy, Unknown, 07/07/10) MINOXIDIL (Verified Allergy, Unknown, 07/07/10) NAME ALERT (Verified Adverse Reaction, Unknown, 07/13/08) ROS Limited/Unobtainable: No Constitutional: Reports: no symptoms HEENT: Reports: no symptoms Cardiovascular: Reports: no symptoms Respiratory: Reports: no symptoms Gastrointestinal/Abdominal: Reports: no symptoms Genitourinary: Reports: no symptoms Neurologic/Psychiatric: Reports: no symptoms Subjective 82 YO F admitted with right leg pain; now cellulitis right leg and UTI. Cover for Int Saúl-Dr Villanueva Objective Last Vital Signs Date Time Temp Pulse Resp B/P (MAP) Pulse Ox O2 Delivery O2 Flow Rate FiO2 01/20/18 11:51 98.1 69 18 118/71 69 Room Air 98.1 Laboratory Tests Test 01/20/18 05:50 White Blood Count 5.9 K/UL (4.8-10.8) Red Blood Count 3.47 M/UL (4.20-5.40) L Hemoglobin 9.3 G/DL (12.0-16.0) L Hematocrit 30.6 % (37.0-47.0) L Mean Corpuscular Volume 88 FL (80-99) Mean Corpuscular Hemoglobin 26.7 PG (27.0-31.0) L Mean Corpuscular Hemoglobin Concent 30.2 G/DL (32.0-36.0) L Red Cell Distribution Width 16.2 % (11.6-14.8) H Platelet Count 185 K/UL (150-450) Mean Platelet Volume 5.9 FL (6.5-10.1) L Neutrophils (%) (Auto) 69.3 % (45.0-75.0) Lymphocytes (%) (Auto) 16.8 % (20.0-45.0) L Monocytes (%) (Auto) 10.2 % (1.0-10.0) H Eosinophils (%) (Auto) 2.9 % (0.0-3.0) Basophils (%) (Auto) 0.7 % (0.0-2.0) Sodium Level 135 MMOL/L (136-145) L Potassium Level 4.9 MMOL/L (3.5-5.1) Chloride Level 103 MMOL/L (98-107) Carbon Dioxide Level 25 MMOL/L (21-32) Anion Gap 7 mmol/L (5-15) Blood Urea Nitrogen 32 mg/dL (7-18) H Creatinine 2.6 MG/DL (0.55-1.30) H Estimat Glomerular Filtration Rate mL/min (>60) Glucose Level 91 MG/DL (74-106) Calcium Level 8.2 MG/DL (8.5-10.1) L Phosphorus Level 4.8 MG/DL (2.5-4.9) Microbiology Date/Time Source Procedure Growth Status 01/17/18 19:50 Blood Blood Culture - Preliminary NO GROWTH AFTER 48 HOURS Resulted 01/17/18 19:40 Blood Blood Culture - Preliminary NO GROWTH AFTER 48 HOURS Resulted 01/17/18 19:50 Urine,Clean Catch Urine Culture - Final Escherichia Coli Proteus Mirabilis Complete Intake and Output 01/19/18 01/20/18 19:00 07:00 Intake Total 300 ml 350 ml Balance 300 ml 350 ml Intake Oral 300 ml IV Total 350 ml # Voids 4 2 Objective General Appearance: WD/WN, alert, mild distress, obese EENT: PERRL/EOMI, normal ENT inspection, TMs normal Neck: non-tender, normal alignment, supple Cardiovascular: normal peripheral pulses, normal rate, regular rhythm, no gallop/murmur, no JVD Respiratory/Chest: chest wall non-tender, lungs clear, normal breath sounds, no respiratory distress, no accessory muscle use Abdomen: normal bowel sounds, non tender, soft, no organomegaly, no mass Extremities: normal range of motion, non-tender Edema: trace edema Neurologic: records custodian II-XII grossly normal, no motor/sensory deficits Skin: normal pigmentation, warm/dry Assessment/Plan Problem List: (1) Cerebral vascular disease (2) Leg pain, right Assessment & Plan: due to cellulitis (3) Cellulitis of right lower extremity Assessment & Plan: continue vanco, cefazolin and aztreonam per ID (4) DM (diabetes mellitus) (5) Asthma (6) HTN (hypertension) Assessment & Plan: Continue toprol (7) Congestive heart failure (8) Acute on chronic renal failure Assessment & Plan: See nephrology note. (9) UTI (urinary tract infection) Assessment & Plan: E. Coli and Proteus. Cont cefazolin per ID Status: not improved PAUL MEJIA Jan 20, 2018 16:04
[2018-01-20 20:00] VITALS: BP 125/55
[2018-01-20] MEDS: Iron Sucrose 100 MG in NS 55 ML IV SCH (20:53)
[2018-01-21] VITALS: BP 132/61
[2018-01-21] MEDS: oxyCODONE 15mg IR tab ORAL PRN ×2 (00:23→21:28)
[2018-01-21 04:00] VITALS: BP 139/54
[2018-01-21 07:47] LABS: BASOPHILS % (AUTO) 0.7 % (0.0-2.0); EOSINOPHILS % (AUTO) 0.3 % (0.0-3.0); HEMATOCRIT 30.5 % (37.0-47.0); HEMOGLOBIN 9.6 G/DL (12.0-16.0); LYMPHOCYTES % (AUTO) 7.4 % (20.0-45.0); MEAN CORPUSCULAR VOLUME 87 FL (80-99); MONOCYTES % (AUTO) 8.2 % (1.0-10.0); NEUTROPHILS % (AUTO) 83.4 % (45.0-75.0); PLATELET COUNT 202 K/UL (150-450); RED BLOOD COUNT 3.52 M/UL (4.20-5.40); RED CELL DISTRIBUTION WIDTH 16.2 % (11.6-14.8); WHITE BLOOD COUNT 9.1 K/UL (4.8-10.8)
[2018-01-21 07:54] LABS: ANION GAP 8 mmol/L (5-15); BLOOD UREA NITROGEN 39 mg/dL (7-18); CALCIUM 8.6 MG/DL (8.5-10.1); CARBON DIOXIDE 24 MMOL/L (21-32); CHLORIDE 105 MMOL/L (98-107); CREATININE 2.8 MG/DL (0.55-1.30); POTASSIUM 4.9 MMOL/L (3.5-5.1); SODIUM 137 MMOL/L (136-145)
[2018-01-21 08:00] VITALS: BP 139/73
[2018-01-21] MEDS: Oxybutynin 5mg tab ORAL SCH (09:00)
[2018-01-21] MEDS: Aspirin Baby 81mg NG SCH (09:00)
[2018-01-21] MEDS: Metoprolol Succinate XL 25mg tab ORAL SCH (09:00)
[2018-01-21] MEDS: ceFAZolin sod 1 GM in NS 55 ML IVPB SCH (09:03)
[2018-01-21] MEDS: Allopurinol 100mg Tab ORAL SCH (09:03)
[2018-01-21] MEDS: Heparin 5000 units/ml inj SUBQ SCH ×2 (09:05→21:11)
--- NOTE | 2018-01-21 10:31 | GI Progress Note ---
Assessment/Plan Problems: (1) Therapeutic opioid-induced constipation (OIC) ICD Codes: K59.03 - Drug induced constipation; T40.2X5A - Adverse effect of other opioids, initial encounter SNOMED: 628577790672885 (2) Abdominal pain (3) Anemia ICD Codes: D64.9 - Anemia SNOMED: 038364811 Status: stable Status Narrative Discussed with Dr. Moran. Assessment/Plan bowel regime >> cont colace TID + miralax, consider relistor SQ for OIC if indicated adv diet anemia work up >> iron deficient >> venofer OB stool r/o GI bleed pending monitor H&H, prn transfusions ppi fu labs PT evaluation dc planning Subjective Subjective feels better had big BM wednesday does not feel constipated Objective Last 24 Hour Vital Signs Date Time Temp Pulse Resp B/P (MAP) Pulse Ox O2 Delivery O2 Flow Rate FiO2 01/21/18 09:47 93 20 Room Air 21 01/21/18 09:13 Nasal Cannula 2.0 28 01/21/18 09:13 93 Nasal Cannula 2.0 28 01/21/18 09:04 139/54 01/21/18 09:00 83 139/54 01/21/18 04:00 98.4 83 21 139/54 92 98.4 01/21/18 00:00 98.4 82 20 132/61 95 98.4 01/20/18 20:53 125/55 01/20/18 20:00 99.5 90 20 125/55 90 99.5 01/20/18 19:30 88 20 Room Air 21 01/20/18 17:37 97.0 01/20/18 16:38 99.0 01/20/18 16:00 99.0 100 20 153/76 92 Room Air 99.0 01/20/18 11:51 98.1 69 18 118/71 69 Room Air 98.1 Intake and Output 01/20/18 01/21/18 18:59 06:59 Intake Total 350 ml Balance 350 ml IV Total 350 ml # Voids 1 4 # Bowel Movements 2 Laboratory Tests Test 01/21/18 05:30 01/21/18 07:00 Stool Occult Blood Pending White Blood Count 9.1 K/UL (4.8-10.8) # Red Blood Count 3.52 M/UL (4.20-5.40) L Hemoglobin 9.6 G/DL (12.0-16.0) L Hematocrit 30.5 % (37.0-47.0) L Mean Corpuscular Volume 87 FL (80-99) Mean Corpuscular Hemoglobin 27.3 PG (27.0-31.0) Mean Corpuscular Hemoglobin Concent 31.5 G/DL (32.0-36.0) L Red Cell Distribution Width 16.2 % (11.6-14.8) H Platelet Count 202 K/UL (150-450) Mean Platelet Volume 5.5 FL (6.5-10.1) L Neutrophils (%) (Auto) 83.4 % (45.0-75.0) H Lymphocytes (%) (Auto) 7.4 % (20.0-45.0) L Monocytes (%) (Auto) 8.2 % (1.0-10.0) Eosinophils (%) (Auto) 0.3 % (0.0-3.0) Basophils (%) (Auto) 0.7 % (0.0-2.0) Sodium Level 137 MMOL/L (136-145) Potassium Level 4.9 MMOL/L (3.5-5.1) Chloride Level 105 MMOL/L (98-107) Carbon Dioxide Level 24 MMOL/L (21-32) Anion Gap 8 mmol/L (5-15) Blood Urea Nitrogen 39 mg/dL (7-18) H Creatinine 2.8 MG/DL (0.55-1.30) H Estimat Glomerular Filtration Rate mL/min (>60) Glucose Level 96 MG/DL (74-106) Calcium Level 8.6 MG/DL (8.5-10.1) Height (Feet): 5 Height (Inches): 2.00 Weight (Pounds): 185 General Appearance: WD/WN, no apparent distress, alert Cardiovascular: normal rate Respiratory/Chest: normal breath sounds, no respiratory distress Abdominal Exam: normal bowel sounds, non tender, soft Extremities: normal range of motion, non-tender Karen Horton N.P. Jan 21, 2018 10:31
[2018-01-21 12:00] VITALS: BP 144/65
--- NOTE | 2018-01-21 12:56 | Nephrology Progress Note ---
Assessment/Plan Problem List: (1) HTN (hypertension) (2) Acute on chronic renal failure Assessment: no sig change (3) Gout (4) DM (diabetes mellitus) (5) Cellulitis of right lower extremity Plan keep off diuretics follow BMP Discussed with son zeb Subjective Subjective better today Objective Objective Last 24 Hour Vital Signs Date Time Temp Pulse Resp B/P (MAP) Pulse Ox O2 Delivery O2 Flow Rate FiO2 01/21/18 09:47 93 20 Room Air 21 01/21/18 09:13 Nasal Cannula 2.0 28 01/21/18 09:13 93 Nasal Cannula 2.0 28 01/21/18 09:04 139/54 01/21/18 09:00 83 139/54 01/21/18 08:00 98.6 98 20 139/73 96 98.6 01/21/18 04:00 98.4 83 21 139/54 92 98.4 01/21/18 00:00 98.4 82 20 132/61 95 98.4 01/20/18 20:53 125/55 01/20/18 20:00 99.5 90 20 125/55 90 99.5 01/20/18 19:30 88 20 Room Air 21 01/20/18 17:37 97.0 01/20/18 16:38 99.0 01/20/18 16:00 99.0 100 20 153/76 92 Room Air 99.0 Intake and Output 01/20/18 01/21/18 19:00 07:00 Intake Total 350 ml Balance 350 ml IV Total 350 ml # Voids 1 4 # Bowel Movements 2 Laboratory Tests 01/21/18 05:30: Stool Occult Blood Negative 01/21/18 07:00: White Blood Count 9.1#, Red Blood Count 3.52L, Hemoglobin 9.6L, Hematocrit 30.5L , Mean Corpuscular Volume 87, Mean Corpuscular Hemoglobin 27.3, Mean Corpuscular Hemoglobin Concent 31.5L, Red Cell Distribution Width 16.2H, Platelet Count 202, Mean Platelet Volume 5.5L, Neutrophils (%) (Auto) 83.4H, Lymphocytes (%) (Auto) 7.4L, Monocytes (%) (Auto) 8.2, Eosinophils (%) (Auto) 0.3, Basophils (%) (Auto) 0.7, Sodium Level 137, Potassium Level 4.9, Chloride Level 105, Carbon Dioxide Level 24, Anion Gap 8, Blood Urea Nitrogen 39H, Creatinine 2.8H, Estimat Glomerular Filtration Rate , Glucose Level 96, Calcium Level 8.6 Height (Feet): 5 Height (Inches): 2.00 Weight (Pounds): 185 Cardiovascular: normal rate Respiratory/Chest: lungs clear Abdomen: soft Extremities: severe edema PETEY FAIR Jan 21, 2018 12:56
--- NOTE | 2018-01-21 15:03 | Pulmonology Progress Note ---
Assessment/Plan Problems: (1) Acute bronchitis (2) Cellulitis (3) Asthma (4) CKD (chronic kidney disease) (5) HTN (hypertension) (6) Diabetes mellitus Assessment/Plan cxr, mild congestion mykolytics chest pt sputum for c/s improving slowly continue abx check cultures, Urine has Ecoli and Proteus renal function stable Subjective ROS Limited/Unobtainable: No Interval Events: still coughin Constitutional: Reports: no symptoms HEENT: Repors: no symptoms Allergies: Coded Allergies: DIAZEPAM (Verified Allergy, Unknown, 10/07/11) HYDROCODONE (Verified Allergy, Unknown, 07/07/10) MINOXIDIL (Verified Allergy, Unknown, 07/07/10) NAME ALERT (Verified Adverse Reaction, Unknown, 07/13/08) Objective Last 24 Hour Vital Signs Date Time Temp Pulse Resp B/P (MAP) Pulse Ox O2 Delivery O2 Flow Rate FiO2 01/21/18 12:00 97.9 90 20 144/65 95 Room Air 97.9 01/21/18 09:47 93 20 Room Air 21 01/21/18 09:13 Nasal Cannula 2.0 28 01/21/18 09:13 93 Nasal Cannula 2.0 28 01/21/18 09:04 139/54 01/21/18 09:00 83 139/54 01/21/18 08:00 98.6 98 20 139/73 96 98.6 01/21/18 04:00 98.4 83 21 139/54 92 98.4 01/21/18 00:00 98.4 82 20 132/61 95 98.4 01/20/18 20:53 125/55 01/20/18 20:00 99.5 90 20 125/55 90 99.5 01/20/18 19:30 88 20 Room Air 21 01/20/18 17:37 97.0 01/20/18 16:38 99.0 01/20/18 16:00 99.0 100 20 153/76 92 Room Air 99.0 Intake and Output 01/20/18 01/21/18 19:00 07:00 Intake Total 350 ml Balance 350 ml IV Total 350 ml # Voids 1 4 # Bowel Movements 2 Objective General Appearance: WD/WN HEENT: normocephalic, anicteric Respiratory/Chest: chest wall non-tender, lungs clear Breasts: no masses Cardiovascular: normal peripheral pulses Genitourinary: normal external genitalia Extremities: no cyanosis Skin: no rash Laboratory Tests 01/21/18 05:30: Stool Occult Blood Negative 01/21/18 07:00: White Blood Count 9.1#, Red Blood Count 3.52L, Hemoglobin 9.6L, Hematocrit 30.5L , Mean Corpuscular Volume 87, Mean Corpuscular Hemoglobin 27.3, Mean Corpuscular Hemoglobin Concent 31.5L, Red Cell Distribution Width 16.2H, Platelet Count 202, Mean Platelet Volume 5.5L, Neutrophils (%) (Auto) 83.4H, Lymphocytes (%) (Auto) 7.4L, Monocytes (%) (Auto) 8.2, Eosinophils (%) (Auto) 0.3, Basophils (%) (Auto) 0.7, Sodium Level 137, Potassium Level 4.9, Chloride Level 105, Carbon Dioxide Level 24, Anion Gap 8, Blood Urea Nitrogen 39H, Creatinine 2.8H, Estimat Glomerular Filtration Rate , Glucose Level 96, Calcium Level 8.6 Current Medications Medications (Trade) Dose Ordered Sig/Liss Route PRN Reason Start Time Stop Time Status Last Admin Dose Admin Acetaminophen (Tylenol) 650 mg Q4H PRN ORAL fever 01/17/18 22:15 02/16/18 22:14 01/20/18 16:38 Albuterol/ Ipratropium (Albuterol/ Ipratropium) 3 ml EVERY 4 HOURS PRN HHN Shortness of Breath 01/17/18 22:15 01/22/18 22:14 Allopurinol (Zyloprim) 100 mg DAILY ORAL 01/18/18 09:00 02/17/18 08:59 01/21/18 09:03 Aspirin (ASA) 81 mg DAILY NG 01/21/18 09:00 02/20/18 08:59 Bisacodyl (Dulcolax) 10 mg DAILYPRN PRN RECTAL Constipation 01/18/18 16:45 02/17/18 16:44 Cefazolin Sodium 500 mg/Sodium Chloride 55 ml @ 110 mls/hr EVERY 12 HOURS IVP 01/21/18 21:00 01/28/18 20:59 Dextrose (Dextrose 50%) STAT PRN IV Hypoglycemia 01/17/18 22:15 02/16/18 22:14 Gabapentin (Neurontin) 300 mg QID ORAL 01/18/18 09:00 02/17/18 08:59 01/21/18 14:10 Guaifenesin (Robitussin) 100 mg Q4H PRN ORAL For Cough 01/20/18 15:15 02/19/18 15:14 01/21/18 00:30 Heparin Sodium (Porcine) (Heparin 5000 units/ml) 5,000 units EVERY 12 HOURS SUBQ 01/18/18 09:00 02/17/18 08:59 01/21/18 09:05 Iron Sucrose 100 mg/Sodium Chloride 60 ml @ 240 mls/hr BEDTIME IV 01/19/18 21:00 01/21/18 21:14 01/20/18 20:53 Isosorbide Dinitrate (Isordil) 5 mg EVERY 12 HOURS ORAL 01/18/18 09:00 02/17/18 08:59 01/21/18 09:04 Metoprolol Succinate (Toprol XL) 25 mg DAILY ORAL 01/18/18 09:00 02/17/18 08:59 01/20/18 09:27 Nitroglycerin (Ntg) 0.4 mg Q5MIN PRN SL Prn Chest Pain 01/17/18 22:15 02/16/18 22:14 Ondansetron HCl (Zofran) 4 mg Q6H PRN IVP Nausea & Vomiting 01/17/18 22:15 02/16/18 22:14 01/18/18 08:46 Oxybutynin Chloride (Ditropan) 15 mg DAILY ORAL 01/18/18 09:00 02/17/18 08:59 01/20/18 09:26 Oxycodone HCl (Roxicodone) 30 mg Q8H PRN ORAL For Pain 01/17/18 22:15 01/24/18 22:14 01/21/18 00:23 Polyethylene Glycol (Miralax) 17 gm DAILYPRN PRN ORAL Constipation 01/17/18 22:15 02/16/18 22:14 Temazepam (Restoril) 15 mg HSPRN PRN ORAL Insomnia 01/17/18 22:15 01/24/18 22:14 Roberta Durán MD Jan 21, 2018 15:03
[2018-01-21 16:00] VITALS: BP 117/78
--- NOTE | 2018-01-21 16:35 | Internal Med Progress Note ---
Subjective Date of Service: Jan 21, 2018 Physician Name Paul Mejia Attending Physician Christopher Villanueva MD Current Medications Medications (Trade) Dose Ordered Sig/Liss Route PRN Reason Start Time Stop Time Status Last Admin Dose Admin Acetaminophen (Tylenol) 650 mg Q4H PRN ORAL fever 01/17/18 22:15 02/16/18 22:14 01/20/18 16:38 Albuterol/ Ipratropium (Albuterol/ Ipratropium) 3 ml EVERY 4 HOURS PRN HHN Shortness of Breath 01/17/18 22:15 01/22/18 22:14 Allopurinol (Zyloprim) 100 mg DAILY ORAL 01/18/18 09:00 02/17/18 08:59 01/21/18 09:03 Aspirin (ASA) 81 mg DAILY NG 01/21/18 09:00 02/20/18 08:59 Bisacodyl (Dulcolax) 10 mg DAILYPRN PRN RECTAL Constipation 01/18/18 16:45 02/17/18 16:44 Cefazolin Sodium 500 mg/Sodium Chloride 55 ml @ 110 mls/hr EVERY 12 HOURS IVP 01/21/18 21:00 01/28/18 20:59 Dextrose (Dextrose 50%) STAT PRN IV Hypoglycemia 01/17/18 22:15 02/16/18 22:14 Gabapentin (Neurontin) 300 mg QID ORAL 01/18/18 09:00 02/17/18 08:59 01/21/18 14:10 Guaifenesin (Robitussin) 100 mg Q4H PRN ORAL For Cough 01/20/18 15:15 02/19/18 15:14 01/21/18 00:30 Heparin Sodium (Porcine) (Heparin 5000 units/ml) 5,000 units EVERY 12 HOURS SUBQ 01/18/18 09:00 02/17/18 08:59 01/21/18 09:05 Iron Sucrose 100 mg/Sodium Chloride 60 ml @ 240 mls/hr BEDTIME IV 01/19/18 21:00 01/21/18 21:14 01/20/18 20:53 Isosorbide Dinitrate (Isordil) 5 mg EVERY 12 HOURS ORAL 01/18/18 09:00 02/17/18 08:59 01/21/18 09:04 Metoprolol Succinate (Toprol XL) 25 mg DAILY ORAL 01/18/18 09:00 02/17/18 08:59 01/20/18 09:27 Nitroglycerin (Ntg) 0.4 mg Q5MIN PRN SL Prn Chest Pain 01/17/18 22:15 02/16/18 22:14 Ondansetron HCl (Zofran) 4 mg Q6H PRN IVP Nausea & Vomiting 01/17/18 22:15 02/16/18 22:14 01/18/18 08:46 Oxybutynin Chloride (Ditropan) 15 mg DAILY ORAL 01/18/18 09:00 02/17/18 08:59 01/20/18 09:26 Oxycodone HCl (Roxicodone) 30 mg Q8H PRN ORAL For Pain 01/17/18 22:15 01/24/18 22:14 01/21/18 00:23 Polyethylene Glycol (Miralax) 17 gm DAILYPRN PRN ORAL Constipation 01/17/18 22:15 02/16/18 22:14 Temazepam (Restoril) 15 mg HSPRN PRN ORAL Insomnia 01/17/18 22:15 01/24/18 22:14 Allergies: Coded Allergies: DIAZEPAM (Verified Allergy, Unknown, 10/07/11) HYDROCODONE (Verified Allergy, Unknown, 07/07/10) MINOXIDIL (Verified Allergy, Unknown, 07/07/10) NAME ALERT (Verified Adverse Reaction, Unknown, 07/13/08) ROS Limited/Unobtainable: No Constitutional: Reports: no symptoms HEENT: Reports: no symptoms Cardiovascular: Reports: no symptoms Respiratory: Reports: no symptoms Gastrointestinal/Abdominal: Reports: no symptoms Genitourinary: Reports: no symptoms Neurologic/Psychiatric: Reports: no symptoms Subjective 82 YO F admitted with right leg pain; now cellulitis right leg and UTI. Cover for Int Saúl-Dr Villanueva Objective Last Vital Signs Date Time Temp Pulse Resp B/P (MAP) Pulse Ox O2 Delivery O2 Flow Rate FiO2 01/21/18 16:00 98.7 68 23 117/78 99 Room Air 98.7 01/21/18 09:47 21 01/21/18 09:13 2.0 Laboratory Tests Test 01/21/18 05:30 01/21/18 07:00 Stool Occult Blood Negative (NEGATIVE) White Blood Count 9.1 K/UL (4.8-10.8) # Red Blood Count 3.52 M/UL (4.20-5.40) L Hemoglobin 9.6 G/DL (12.0-16.0) L Hematocrit 30.5 % (37.0-47.0) L Mean Corpuscular Volume 87 FL (80-99) Mean Corpuscular Hemoglobin 27.3 PG (27.0-31.0) Mean Corpuscular Hemoglobin Concent 31.5 G/DL (32.0-36.0) L Red Cell Distribution Width 16.2 % (11.6-14.8) H Platelet Count 202 K/UL (150-450) Mean Platelet Volume 5.5 FL (6.5-10.1) L Neutrophils (%) (Auto) 83.4 % (45.0-75.0) H Lymphocytes (%) (Auto) 7.4 % (20.0-45.0) L Monocytes (%) (Auto) 8.2 % (1.0-10.0) Eosinophils (%) (Auto) 0.3 % (0.0-3.0) Basophils (%) (Auto) 0.7 % (0.0-2.0) Sodium Level 137 MMOL/L (136-145) Potassium Level 4.9 MMOL/L (3.5-5.1) Chloride Level 105 MMOL/L (98-107) Carbon Dioxide Level 24 MMOL/L (21-32) Anion Gap 8 mmol/L (5-15) Blood Urea Nitrogen 39 mg/dL (7-18) H Creatinine 2.8 MG/DL (0.55-1.30) H Estimat Glomerular Filtration Rate mL/min (>60) Glucose Level 96 MG/DL (74-106) Calcium Level 8.6 MG/DL (8.5-10.1) Intake and Output 01/20/18 01/21/18 19:00 07:00 Intake Total 350 ml Balance 350 ml IV Total 350 ml # Voids 1 4 # Bowel Movements 2 Objective General Appearance: WD/WN, alert, mild distress, obese EENT: PERRL/EOMI, normal ENT inspection, TMs normal Neck: non-tender, normal alignment, supple Cardiovascular: normal peripheral pulses, normal rate, regular rhythm, no gallop/murmur, no JVD Respiratory/Chest: chest wall non-tender, lungs clear, normal breath sounds, no respiratory distress, no accessory muscle use Abdomen: normal bowel sounds, non tender, soft, no organomegaly, no mass Extremities: normal range of motion, non-tender Edema: trace edema 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 (9) UTI (urinary tract infection) Assessment & Plan: E. Coli and Proteus. Cont cefazolin per ID PAUL MEJIA Jan 21, 2018 16:35
--- NOTE | 2018-01-21 17:15 | Infectious Diseases Prog Note ---
Assessment/Plan Assessment/Plan Assessment: RLE cellulitis; improving- -v/ duplex: no DVT, v. insufficiency b/l Fever, resolved -no leukocytosis -u.a wbc 5-10, nit neg, leuk +3; ucx >100K E.coli (S Ancef), 10-20K P. mirabilis (s Ancef)--> Asymptomatic bacteriuria -CXR: no acute disease -Bcx NTD Cough- likely due to pulmonary congestion -CXR 01/20: Equivocal mild interstitial congestion, if real then new or increased from previous study of 2 days earlier DM2 HTN asthma CVA/TIA hx DVT SN[facility] resident ? PNC allergy reported on EMR, however patient denies it Plan: -Switch IV Ancef abx d#03/14-10 to PO keflex 250mg q 8h for cellulitis -01/18 SP IV Vanco #2 and Aztreonam #1 -f/u cx -monitor CBC/BMP, temperatures -leg elevation Thank you for this consultation. Will continue to follow along with you. Discussed with RN Subjective Allergies: Coded Allergies: DIAZEPAM (Verified Allergy, Unknown, 10/07/11) HYDROCODONE (Verified Allergy, Unknown, 07/07/10) MINOXIDIL (Verified Allergy, Unknown, 07/07/10) NAME ALERT (Verified Adverse Reaction, Unknown, 07/13/08) Subjective afebrile in ~72hrs no leukocytosis Bcx NTD CXR with congestion +cough Objective Vital Signs Last 24 Hour Vital Signs Date Time Temp Pulse Resp B/P (MAP) Pulse Ox O2 Delivery O2 Flow Rate FiO2 01/21/18 16:00 98.7 68 23 117/78 99 Room Air 98.7 01/21/18 12:00 97.9 90 20 144/65 95 Room Air 97.9 01/21/18 09:47 93 20 Room Air 21 01/21/18 09:13 Nasal Cannula 2.0 28 01/21/18 09:13 93 Nasal Cannula 2.0 28 01/21/18 09:04 139/54 01/21/18 09:00 83 139/54 01/21/18 08:00 98.6 98 20 139/73 96 98.6 01/21/18 04:00 98.4 83 21 139/54 92 98.4 01/21/18 00:00 98.4 82 20 132/61 95 98.4 01/20/18 20:53 125/55 01/20/18 20:00 99.5 90 20 125/55 90 99.5 01/20/18 19:30 88 20 Room Air 21 01/20/18 17:37 97.0 Height (Feet): 5 Height (Inches): 2.00 Weight (Pounds): 185 Objective General Appearance: WD/WN Lines, tubes and drains: peripheral HEENT: normocephalic Neck: non-tender, normal alignment Respiratory/Chest: chest wall non-tender, lungs clear Breasts: no masses Cardiovascular/Chest: normal rate Abdomen: normal bowel sounds Genitourinary/Rectal: normal genital exam Extremities: normal range of motion R >L w/ venous stasis changes. R leg +erythematmous, mildly warm and TTP non pitting edema L>R; improving Laboratory Tests Test 01/21/18 05:30 01/21/18 07:00 Stool Occult Blood Negative (NEGATIVE) White Blood Count 9.1 K/UL (4.8-10.8) # Red Blood Count 3.52 M/UL (4.20-5.40) L Hemoglobin 9.6 G/DL (12.0-16.0) L Hematocrit 30.5 % (37.0-47.0) L Mean Corpuscular Volume 87 FL (80-99) Mean Corpuscular Hemoglobin 27.3 PG (27.0-31.0) Mean Corpuscular Hemoglobin Concent 31.5 G/DL (32.0-36.0) L Red Cell Distribution Width 16.2 % (11.6-14.8) H Platelet Count 202 K/UL (150-450) Mean Platelet Volume 5.5 FL (6.5-10.1) L Neutrophils (%) (Auto) 83.4 % (45.0-75.0) H Lymphocytes (%) (Auto) 7.4 % (20.0-45.0) L Monocytes (%) (Auto) 8.2 % (1.0-10.0) Eosinophils (%) (Auto) 0.3 % (0.0-3.0) Basophils (%) (Auto) 0.7 % (0.0-2.0) Sodium Level 137 MMOL/L (136-145) Potassium Level 4.9 MMOL/L (3.5-5.1) Chloride Level 105 MMOL/L (98-107) Carbon Dioxide Level 24 MMOL/L (21-32) Anion Gap 8 mmol/L (5-15) Blood Urea Nitrogen 39 mg/dL (7-18) H Creatinine 2.8 MG/DL (0.55-1.30) H Estimat Glomerular Filtration Rate mL/min (>60) Glucose Level 96 MG/DL (74-106) Calcium Level 8.6 MG/DL (8.5-10.1) Current Medications Medications (Trade) Dose Ordered Sig/Liss Route PRN Reason Start Time Stop Time Status Last Admin Dose Admin Acetaminophen (Tylenol) 650 mg Q4H PRN ORAL fever 01/17/18 22:15 02/16/18 22:14 01/20/18 16:38 Albuterol/ Ipratropium (Albuterol/ Ipratropium) 3 ml EVERY 4 HOURS PRN HHN Shortness of Breath 01/17/18 22:15 01/22/18 22:14 Allopurinol (Zyloprim) 100 mg DAILY ORAL 01/18/18 09:00 02/17/18 08:59 01/21/18 09:03 Aspirin (ASA) 81 mg DAILY NG 01/21/18 09:00 02/20/18 08:59 Bisacodyl (Dulcolax) 10 mg DAILYPRN PRN RECTAL Constipation 01/18/18 16:45 02/17/18 16:44 Cefazolin Sodium 500 mg/Sodium Chloride 55 ml @ 110 mls/hr EVERY 12 HOURS IVP 01/21/18 21:00 18 20:59 Dextrose (Dextrose 50%) STAT PRN IV Hypoglycemia 01/17/18 22:15 02/16/18 22:14 Gabapentin (Neurontin) 300 mg QID ORAL 01/18/18 09:00 02/17/18 08:59 01/21/18 14:10 Guaifenesin (Robitussin) 100 mg Q4H PRN ORAL For Cough 01/20/18 15:15 02/19/18 15:14 01/21/18 00:30 Heparin Sodium (Porcine) (Heparin 5000 units/ml) 5,000 units EVERY 12 HOURS SUBQ 01/18/18 09:00 02/17/18 08:59 01/21/18 09:05 Iron Sucrose 100 mg/Sodium Chloride 60 ml @ 240 mls/hr BEDTIME IV 01/19/18 21:00 01/21/18 21:14 01/20/18 20:53 Isosorbide Dinitrate (Isordil) 5 mg EVERY 12 HOURS ORAL 01/18/18 09:00 02/17/18 08:59 01/21/18 09:04 Metoprolol Succinate (Toprol XL) 25 mg DAILY ORAL 01/18/18 09:00 02/17/18 08:59 01/20/18 09:27 Nitroglycerin (Ntg) 0.4 mg Q5MIN PRN SL Prn Chest Pain 01/17/18 22:15 02/16/18 22:14 Ondansetron HCl (Zofran) 4 mg Q6H PRN IVP Nausea & Vomiting 01/17/18 22:15 02/16/18 22:14 01/18/18 08:46 Oxybutynin Chloride (Ditropan) 15 mg DAILY ORAL 01/18/18 09:00 02/17/18 08:59 01/20/18 09:26 Oxycodone HCl (Roxicodone) 30 mg Q8H PRN ORAL For Pain 01/17/18 22:15 01/24/18 22:14 01/21/18 00:23 Polyethylene Glycol (Miralax) 17 gm DAILYPRN PRN ORAL Constipation 01/17/18 22:15 02/16/18 22:14 Temazepam (Restoril) 15 mg HSPRN PRN ORAL Insomnia 01/17/18 22:15 01/24/18 22:14 Lillian Moss M.D. Jan 21, 2018 17:15
[2018-01-21 20:00] VITALS: BP 122/58
[2018-01-21] MEDS ORDERED: CEFAZOLIN IVP SCH (21:00)
[2018-01-21] MEDS ORDERED: NS IVP SCH (21:00)
[2018-01-21] MEDS: Cephalexin 250mg Cap ORAL SCH (21:06)
[2018-01-21] MEDS: Iron Sucrose 100 MG in NS 55 ML IV SCH (21:06)
--- NOTE | 2018-01-21 22:58 | Consultation ---
History of Present Illness General Date patient seen: Jan 20, 2018 Chief Complaint: Pain Referring physician: LEYDA ARGUETA Reason for Consultation: CONSTIPATION Present Illness HPI 82-year-old female, presents with chief complaint of right leg pain and swelling. the pt pw waxing and waning of consciousness. the pt pw agitation Allergies: Coded Allergies: DIAZEPAM (Verified Allergy, Unknown, 10/07/11) HYDROCODONE (Verified Allergy, Unknown, 07/07/10) MINOXIDIL (Verified Allergy, Unknown, 07/07/10) NAME ALERT (Verified Adverse Reaction, Unknown, 07/13/08) Medication History Scheduled Allopurinol* (Allopurinol*), 100 MG ORAL DAILY, (Reported) Amlodipine/Atorvastatin 2.5-40 Mg (Amlodipine-Atorvast 2.5-40 Mg), 1 TAB ORAL DAILY, (Reported) Calcitriol (Calcitriol), 0.25 MCG PO 3XW, (Reported) Dexlansoprazole (Dexilant), 60 MG ORAL DAILY, (Reported) Fluticasone/Salmeterol (Advair 100-50 Diskus), 1 PUFF INH EVERY 12 HOURS, ( Reported) Furosemide* (Lasix*), 40 MG ORAL TWICE A DAY, (Reported) Furosemide* (Lasix*), 40 MG ORAL DAILY, (Reported) Gabapentin* (Gabapentin*), 300 MG ORAL QID, (Reported) Isosorbide Dinitrate* (Isordil*), 5 MG ORAL EVERY 12 HOURS, (Reported) Lidocaine (Lidocaine), 700 MG TP DAILY, (Reported) Metoprolol Succinate* (Metoprolol Succinate*), 25 MG ORAL DAILY, (Reported) Nitrofurantoin Monohyd/M-Cryst (Nitrofurantoin [place]-Mcr 100 mg), 100 MG ORAL Q12H Scheduled PRN Oxycodone Hcl* (Oxycodone Hcl*), 30 MG ORAL Q8H PRN for For Pain, (Reported) Miscellaneous Medications Oxybutynin Chloride (Oxybutynin Chloride), 15 MG ORAL, (Reported) Patient History Limited by: medical condition History Provided By: Patient, PMD Healthcare decision maker Resuscitation status Full Code Advanced Directive on File Past Medical/Surgical History Past Medical/Surgical History: (1) Renal failure (2) Cerebral vascular disease (3) Leg pain, right (4) Acute bronchitis (5) Chest pain (6) MRSA (methicillin resistant Staphylococcus aureus) (7) Congestive heart failure (8) Pneumonia (9) Dehydration, mild (10) Acute renal injury (11) Osteoarthritis, knee (12) Esophageal stricture (13) Diarrhea (14) UTI (urinary tract infection) with pyuria (15) UTI (urinary tract infection) (16) Cellulitis of right lower extremity (17) Renal insufficiency (18) Gout (19) GERD (gastroesophageal reflux disease) (20) Cardiomyopathy (21) Asthma (22) HTN (hypertension) (23) CKD (chronic kidney disease) (24) Diabetes mellitus (25) Gastric cancer (26) Cellulitis (27) Anemia (28) Abdominal pain (29) DM (diabetes mellitus) (30) Therapeutic opioid-induced constipation (OIC) (31) ARF (acute renal failure) (32) Acute on chronic renal failure Physical Exam Last 24 Hour Vital Signs Date Time Temp Pulse Resp B/P (MAP) Pulse Ox O2 Delivery O2 Flow Rate FiO2 01/21/18 21:21 95 Nasal Cannula 2.0 28 01/21/18 21:21 Nasal Cannula 2.0 28 01/21/18 21:08 122/58 01/21/18 20:00 97.7 82 18 122/58 94 Nasal Cannula 2.0 97.7 01/21/18 19:11 89 20 Nasal Cannula 28 01/21/18 16:00 98.7 68 23 117/78 99 Room Air 98.7 01/21/18 12:00 97.9 90 20 144/65 95 Room Air 97.9 01/21/18 09:47 93 20 Room Air 21 01/21/18 09:13 Nasal Cannula 2.0 28 01/21/18 09:13 93 Nasal Cannula 2.0 28 01/21/18 09:04 139/54 01/21/18 09:00 83 139/54 01/21/18 08:00 98.6 98 20 139/73 96 98.6 01/21/18 04:00 98.4 83 21 139/54 92 98.4 01/21/18 00:00 98.4 82 20 132/61 95 98.4 Intake and Output 01/20/18 01/21/18 19:00 07:00 Intake Total 350 ml Balance 350 ml IV Total 350 ml # Voids 1 4 # Bowel Movements 2 Laboratory Tests Test 01/21/18 05:30 01/21/18 07:00 Stool Occult Blood Negative (NEGATIVE) White Blood Count 9.1 K/UL (4.8-10.8) # Red Blood Count 3.52 M/UL (4.20-5.40) L Hemoglobin 9.6 G/DL (12.0-16.0) L Hematocrit 30.5 % (37.0-47.0) L Mean Corpuscular Volume 87 FL (80-99) Mean Corpuscular Hemoglobin 27.3 PG (27.0-31.0) Mean Corpuscular Hemoglobin Concent 31.5 G/DL (32.0-36.0) L Red Cell Distribution Width 16.2 % (11.6-14.8) H Platelet Count 202 K/UL (150-450) Mean Platelet Volume 5.5 FL (6.5-10.1) L Neutrophils (%) (Auto) 83.4 % (45.0-75.0) H Lymphocytes (%) (Auto) 7.4 % (20.0-45.0) L Monocytes (%) (Auto) 8.2 % (1.0-10.0) Eosinophils (%) (Auto) 0.3 % (0.0-3.0) Basophils (%) (Auto) 0.7 % (0.0-2.0) Sodium Level 137 MMOL/L (136-145) Potassium Level 4.9 MMOL/L (3.5-5.1) Chloride Level 105 MMOL/L (98-107) Carbon Dioxide Level 24 MMOL/L (21-32) Anion Gap 8 mmol/L (5-15) Blood Urea Nitrogen 39 mg/dL (7-18) H Creatinine 2.8 MG/DL (0.55-1.30) H Estimat Glomerular Filtration Rate mL/min (>60) Glucose Level 96 MG/DL (74-106) Calcium Level 8.6 MG/DL (8.5-10.1) Height (Feet): 5 Height (Inches): 2.00 Weight (Pounds): 185 Medications Current Medications Medications (Trade) Dose Ordered Sig/Liss Route PRN Reason Start Time Stop Time Status Last Admin Dose Admin Acetaminophen (Tylenol) 650 mg Q4H PRN ORAL fever 01/17/18 22:15 02/16/18 22:14 01/20/18 16:38 Albuterol/ Ipratropium (Albuterol/ Ipratropium) 3 ml EVERY 4 HOURS PRN HHN Shortness of Breath 01/17/18 22:15 01/22/18 22:14 Allopurinol (Zyloprim) 100 mg DAILY ORAL 01/18/18 09:00 02/17/18 08:59 01/21/18 09:03 Aspirin (ASA) 81 mg DAILY NG 01/21/18 09:00 02/20/18 08:59 Bisacodyl (Dulcolax) 10 mg DAILYPRN PRN RECTAL Constipation 01/18/18 16:45 02/17/18 16:44 Cephalexin (Keflex) 250 mg EVERY 8 HOURS ORAL 01/21/18 22:00 01/28/18 21:59 01/21/18 21:06 Dextrose (Dextrose 50%) STAT PRN IV Hypoglycemia 01/17/18 22:15 02/16/18 22:14 Gabapentin (Neurontin) 300 mg QID ORAL 01/18/18 09:00 02/17/18 08:59 01/21/18 21:07 Guaifenesin (Robitussin) 100 mg Q4H PRN ORAL For Cough 01/20/18 15:15 02/19/18 15:14 01/21/18 00:30 Heparin Sodium (Porcine) (Heparin 5000 units/ml) 5,000 units EVERY 12 HOURS SUBQ 01/18/18 09:00 02/17/18 08:59 01/21/18 21:11 Isosorbide Dinitrate (Isordil) 5 mg EVERY 12 HOURS ORAL 01/18/18 09:00 02/17/18 08:59 01/21/18 21:08 Metoprolol Succinate (Toprol XL) 25 mg DAILY ORAL 01/18/18 09:00 02/17/18 08:59 01/20/18 09:27 Nitroglycerin (Ntg) 0.4 mg Q5MIN PRN SL Prn Chest Pain 01/17/18 22:15 02/16/18 22:14 Ondansetron HCl (Zofran) 4 mg Q6H PRN IVP Nausea & Vomiting 01/17/18 22:15 02/16/18 22:14 01/18/18 08:46 Oxybutynin Chloride (Ditropan) 15 mg DAILY ORAL 01/18/18 09:00 02/17/18 08:59 01/20/18 09:26 Oxycodone HCl (Roxicodone) 30 mg Q8H PRN ORAL For Pain 01/17/18 22:15 01/24/18 22:14 01/21/18 21:28 Polyethylene Glycol (Miralax) 17 gm DAILYPRN PRN ORAL Constipation 01/17/18 22:15 02/16/18 22:14 Temazepam (Restoril) 15 mg HSPRN PRN ORAL Insomnia 01/17/18 22:15 01/24/18 22:14 Assessment/Plan Assessment/Plan encephalopathy agitation zyprexa 2.5mg qhs/prn Lee Ann Sutherland M.D. Jan 21, 2018 22:57
[2018-01-22] VITALS: BP 127/68
[2018-01-22 04:00] VITALS: BP 113/65
[2018-01-22] MEDS: Cephalexin 250mg Cap ORAL SCH ×2 (06:10→14:11)
[2018-01-22 07:16] LABS: BASOPHILS % (AUTO) 0.6 % (0.0-2.0); EOSINOPHILS % (AUTO) 1.6 % (0.0-3.0); HEMATOCRIT 31.6 % (37.0-47.0); HEMOGLOBIN 9.7 G/DL (12.0-16.0); LYMPHOCYTES % (AUTO) 9.7 % (20.0-45.0); MEAN CORPUSCULAR VOLUME 88 FL (80-99); MONOCYTES % (AUTO) 9.8 % (1.0-10.0); NEUTROPHILS % (AUTO) 78.2 % (45.0-75.0); PLATELET COUNT 211 K/UL (150-450); RED CELL DISTRIBUTION WIDTH 16.6 % (11.6-14.8); WHITE BLOOD COUNT 8.1 K/UL (4.8-10.8)
[2018-01-22 07:55] LABS: ANION GAP 7 mmol/L (5-15); BLOOD UREA NITROGEN 35 mg/dL (7-18); CALCIUM 8.9 MG/DL (8.5-10.1); CARBON DIOXIDE 26 MMOL/L (21-32); CHLORIDE 108 MMOL/L (98-107); CREATININE 2.2 MG/DL (0.55-1.30); POTASSIUM 5.2 MMOL/L (3.5-5.1); SODIUM 141 MMOL/L (136-145)
[2018-01-22 08:00] VITALS: BP 144/75
[2018-01-22] MEDS: Aspirin Baby 81mg NG SCH (08:46)
[2018-01-22] MEDS: Oxybutynin 5mg tab ORAL SCH (08:46)
[2018-01-22] MEDS: Allopurinol 100mg Tab ORAL SCH (08:47)
[2018-01-22] MEDS: Metoprolol Succinate XL 25mg tab ORAL SCH (08:47)
[2018-01-22] MEDS: Heparin 5000 units/ml inj SUBQ SCH (08:48)
--- NOTE | 2018-01-22 10:40 | General Progress Note ---
Assessment/Plan Problem List: (1) DM (diabetes mellitus) ICD Codes: E11.9 - Type 2 diabetes mellitus without complications SNOMED: 54454956 (2) Abdominal pain (3) Anemia ICD Codes: D64.9 - Anemia SNOMED: 504603123 (4) Gastric cancer ICD Codes: C16.9 - Gastric cancer SNOMED: 215119097 (5) Diabetes mellitus ICD Codes: E11.9 - Diabetes mellitus SNOMED: 15156542 (6) Therapeutic opioid-induced constipation (OIC) ICD Codes: K59.03 - Drug induced constipation; T40.2X5A - Adverse effect of other opioids, initial encounter SNOMED: 056395049771322 (7) HTN (hypertension) ICD Codes: I10 - HTN (hypertension) SNOMED: 67692126 (8) GERD (gastroesophageal reflux disease) ICD Codes: K21.9 - GERD (gastroesophageal reflux disease) SNOMED: 509783799 Assessment/Plan bowel regimen fu labs relistor if needed Subjective ROS Limited/Unobtainable: Yes Allergies: Coded Allergies: DIAZEPAM (Verified Allergy, Unknown, 10/07/11) HYDROCODONE (Verified Allergy, Unknown, 07/07/10) MINOXIDIL (Verified Allergy, Unknown, 07/07/10) NAME ALERT (Verified Adverse Reaction, Unknown, 07/13/08) Subjective no event Objective Last 24 Hour Vital Signs Date Time Temp Pulse Resp B/P (MAP) Pulse Ox O2 Delivery O2 Flow Rate FiO2 01/22/18 08:47 92 144/75 01/22/18 08:46 144/75 01/22/18 08:00 98.3 92 21 144/75 97 Nasal Cannula 2.0 98.3 01/22/18 07:30 88 20 Nasal Cannula 2.0 28 01/22/18 07:30 98 Nasal Cannula 2.0 28 01/22/18 07:30 Nasal Cannula 2.0 28 01/22/18 04:00 Nasal Cannula 2.0 01/22/18 04:00 96.3 101 20 113/65 95 Nasal Cannula 2.0 96.3 01/22/18 00:00 Nasal Cannula 2.0 01/22/18 00:00 97.2 93 20 127/68 92 Nasal Cannula 2.0 97.2 01/21/18 21:21 95 Nasal Cannula 2.0 28 01/21/18 21:21 Nasal Cannula 2.0 28 01/21/18 21:08 122/58 01/21/18 20:00 97.7 82 18 122/58 94 Nasal Cannula 2.0 97.7 01/21/18 20:00 Nasal Cannula 2.0 01/21/18 19:11 89 20 Nasal Cannula 28 01/21/18 16:00 98.7 68 23 117/78 99 Room Air 98.7 01/21/18 12:00 97.9 90 20 144/65 95 Room Air 97.9 Intake and Output 01/21/18 01/22/18 19:00 07:00 Intake Total 480 ml Balance 480 ml Intake Oral 480 ml # Voids 4 # Bowel Movements 1 1 Laboratory Tests 01/22/18 06:05: White Blood Count 8.1, Red Blood Count 3.60L, Hemoglobin 9.7L, Hematocrit 31.6L , Mean Corpuscular Volume 88, Mean Corpuscular Hemoglobin 26.8L, Mean Corpuscular Hemoglobin Concent 30.5L, Red Cell Distribution Width 16.6H, Platelet Count 211, Mean Platelet Volume 6.3L, Neutrophils (%) (Auto) 78.2H, Lymphocytes (%) (Auto) 9.7L, Monocytes (%) (Auto) 9.8, Eosinophils (%) (Auto) 1.6, Basophils (%) (Auto) 0.6, Sodium Level 141, Potassium Level 5.2H, Chloride Level 108H, Carbon Dioxide Level 26, Anion Gap 7, Blood Urea Nitrogen 35H, Creatinine 2.2H, Estimat Glomerular Filtration Rate , Glucose Level 81, Calcium Level 8.9 Height (Feet): 5 Height (Inches): 2.00 Weight (Pounds): 185 General Appearance: alert EENT: normal ENT inspection Neck: supple Cardiovascular: normal rate Respiratory/Chest: decreased breath sounds Abdomen: normal bowel sounds, non tender, soft Extremities: non-tender SVETLANA BRADSHAW Jan 22, 2018 10:40
[2018-01-22] MEDS ORDERED: NS 275ml ONE ×2 (11:17→15:14)
[2018-01-22] MEDS: oxyCODONE 15mg IR tab ORAL PRN (11:37)
[2018-01-22 12:00] VITALS: BP 128/61
[2018-01-22] MEDS ORDERED: CEPHALEXIN500 MG ORAL (14:14)
--- NOTE | 2018-01-22 14:16 | Pulmonology Progress Note ---
Assessment/Plan Problems: (1) Acute bronchitis (2) Cellulitis (3) Asthma (4) CKD (chronic kidney disease) (5) HTN (hypertension) (6) Diabetes mellitus Assessment/Plan improving mykolytics chest pt sputum for c/s improving slowly continue abx, on oral abx now check cultures, Urine has Ecoli and Proteus renal function stable dc to group home Subjective ROS Limited/Unobtainable: No Constitutional: Reports: no symptoms HEENT: Repors: no symptoms Respiratory: Reports: no symptoms Allergies: Coded Allergies: DIAZEPAM (Verified Allergy, Unknown, 10/07/11) HYDROCODONE (Verified Allergy, Unknown, 07/07/10) MINOXIDIL (Verified Allergy, Unknown, 07/07/10) NAME ALERT (Verified Adverse Reaction, Unknown, 07/13/08) Objective Last 24 Hour Vital Signs Date Time Temp Pulse Resp B/P (MAP) Pulse Ox O2 Delivery O2 Flow Rate FiO2 01/22/18 12:00 98.4 71 23 128/61 97 Nasal Cannula 2.0 98.4 01/22/18 08:47 92 144/75 01/22/18 08:46 144/75 01/22/18 08:00 98.3 92 21 144/75 97 Nasal Cannula 2.0 98.3 01/22/18 07:30 88 20 Nasal Cannula 2.0 28 01/22/18 07:30 98 Nasal Cannula 2.0 28 01/22/18 07:30 Nasal Cannula 2.0 28 01/22/18 04:00 Nasal Cannula 2.0 01/22/18 04:00 96.3 101 20 113/65 95 Nasal Cannula 2.0 96.3 01/22/18 00:00 Nasal Cannula 2.0 01/22/18 00:00 97.2 93 20 127/68 92 Nasal Cannula 2.0 97.2 01/21/18 21:21 95 Nasal Cannula 2.0 28 01/21/18 21:21 Nasal Cannula 2.0 28 01/21/18 21:08 122/58 01/21/18 20:00 97.7 82 18 122/58 94 Nasal Cannula 2.0 97.7 01/21/18 20:00 Nasal Cannula 2.0 01/21/18 19:11 89 20 Nasal Cannula 28 01/21/18 16:00 98.7 68 23 117/78 99 Room Air 98.7 Intake and Output 01/21/18 01/22/18 19:00 07:00 Intake Total 480 ml Balance 480 ml Intake Oral 480 ml # Voids 4 # Bowel Movements 1 1 Objective General Appearance: WD/WN HEENT: normocephalic, anicteric Respiratory/Chest: chest wall non-tender, lungs clear Breasts: no masses Cardiovascular: normal peripheral pulses Genitourinary: normal external genitalia Extremities: no cyanosis Skin: no rash Microbiology Date/Time Source Procedure Growth Status 01/20/18 22:30 Sputum Gram Stain - Final Resulted 01/20/18 22:30 Sputum Sputum Culture - Preliminary Resulted Laboratory Tests 01/22/18 06:05: White Blood Count 8.1, Red Blood Count 3.60L, Hemoglobin 9.7L, Hematocrit 31.6L , Mean Corpuscular Volume 88, Mean Corpuscular Hemoglobin 26.8L, Mean Corpuscular Hemoglobin Concent 30.5L, Red Cell Distribution Width 16.6H, Platelet Count 211, Mean Platelet Volume 6.3L, Neutrophils (%) (Auto) 78.2H, Lymphocytes (%) (Auto) 9.7L, Monocytes (%) (Auto) 9.8, Eosinophils (%) (Auto) 1.6, Basophils (%) (Auto) 0.6, Sodium Level 141, Potassium Level 5.2H, Chloride Level 108H, Carbon Dioxide Level 26, Anion Gap 7, Blood Urea Nitrogen 35H, Creatinine 2.2H, Estimat Glomerular Filtration Rate , Glucose Level 81, Calcium Level 8.9 Current Medications Medications (Trade) Dose Ordered Sig/Liss Route PRN Reason Start Time Stop Time Status Last Admin Dose Admin Acetaminophen (Tylenol) 650 mg Q4H PRN ORAL fever 01/17/18 22:15 02/16/18 22:14 01/20/18 16:38 Albuterol/ Ipratropium (Albuterol/ Ipratropium) 3 ml EVERY 4 HOURS PRN HHN Shortness of Breath 01/17/18 22:15 01/22/18 22:14 Allopurinol (Zyloprim) 100 mg DAILY ORAL 01/18/18 09:00 02/17/18 08:59 01/22/18 08:47 Aspirin (ASA) 81 mg DAILY NG 01/21/18 09:00 02/20/18 08:59 01/22/18 08:46 Bisacodyl (Dulcolax) 10 mg DAILYPRN PRN RECTAL Constipation 01/18/18 16:45 02/17/18 16:44 Cephalexin (Keflex) 250 mg EVERY 8 HOURS ORAL 01/21/18 22:00 01/28/18 21:59 01/22/18 14:11 Dextrose (Dextrose 50%) STAT PRN IV Hypoglycemia 01/17/18 22:15 02/16/18 22:14 Gabapentin (Neurontin) 300 mg QID ORAL 01/18/18 09:00 02/17/18 08:59 01/22/18 12:53 Guaifenesin (Robitussin) 100 mg Q4H PRN ORAL For Cough 01/20/18 15:15 02/19/18 15:14 01/21/18 00:30 Heparin Sodium (Porcine) (Heparin 5000 units/ml) 5,000 units EVERY 12 HOURS SUBQ 01/18/18 09:00 02/17/18 08:59 01/22/18 08:48 Isosorbide Dinitrate (Isordil) 5 mg EVERY 12 HOURS ORAL 01/18/18 09:00 02/17/18 08:59 01/22/18 08:46 Metoprolol Succinate (Toprol XL) 25 mg DAILY ORAL 01/18/18 09:00 02/17/18 08:59 01/22/18 08:47 Nitroglycerin (Ntg) 0.4 mg Q5MIN PRN SL Prn Chest Pain 01/17/18 22:15 02/16/18 22:14 Ondansetron HCl (Zofran) 4 mg Q6H PRN IVP Nausea & Vomiting 01/17/18 22:15 02/16/18 22:14 01/18/18 08:46 Oxybutynin Chloride (Ditropan) 15 mg DAILY ORAL 01/18/18 09:00 02/17/18 08:59 01/22/18 08:46 Oxycodone HCl (Roxicodone) 30 mg Q8H PRN ORAL For Pain 01/17/18 22:15 01/24/18 22:14 01/22/18 11:37 Polyethylene Glycol (Miralax) 17 gm DAILYPRN PRN ORAL Constipation 01/17/18 22:15 02/16/18 22:14 Temazepam (Restoril) 15 mg HSPRN PRN ORAL Insomnia 01/17/18 22:15 01/24/18 22:14 Roberta Durán MD Jan 22, 2018 14:16
--- NOTE | 2018-01-22 14:54 | Nephrology Progress Note ---
Assessment/Plan Problem List: (1) HTN (hypertension) (2) Acute on chronic renal failure Assessment: better (3) Gout (4) DM (diabetes mellitus) (5) Cellulitis of right lower extremity (6) Hyperkalemia Plan keep off diuretics follow BMP abxs Discussed with RN low K diet Subjective Subjective feels ok Objective Objective Last 24 Hour Vital Signs Date Time Temp Pulse Resp B/P (MAP) Pulse Ox O2 Delivery O2 Flow Rate FiO2 01/22/18 12:00 98.4 71 23 128/61 97 Nasal Cannula 2.0 98.4 01/22/18 08:47 92 144/75 01/22/18 08:46 144/75 01/22/18 08:00 98.3 92 21 144/75 97 Nasal Cannula 2.0 98.3 01/22/18 07:30 88 20 Nasal Cannula 2.0 28 01/22/18 07:30 98 Nasal Cannula 2.0 28 01/22/18 07:30 Nasal Cannula 2.0 28 01/22/18 04:00 Nasal Cannula 2.0 01/22/18 04:00 96.3 101 20 113/65 95 Nasal Cannula 2.0 96.3 01/22/18 00:00 Nasal Cannula 2.0 01/22/18 00:00 97.2 93 20 127/68 92 Nasal Cannula 2.0 97.2 01/21/18 21:21 95 Nasal Cannula 2.0 28 01/21/18 21:21 Nasal Cannula 2.0 28 01/21/18 21:08 122/58 01/21/18 20:00 97.7 82 18 122/58 94 Nasal Cannula 2.0 97.7 01/21/18 20:00 Nasal Cannula 2.0 01/21/18 19:11 89 20 Nasal Cannula 28 01/21/18 16:00 98.7 68 23 117/78 99 Room Air 98.7 Intake and Output 01/21/18 01/22/18 19:00 07:00 Intake Total 480 ml Balance 480 ml Intake Oral 480 ml # Voids 4 # Bowel Movements 1 1 Laboratory Tests 01/22/18 06:05: White Blood Count 8.1, Red Blood Count 3.60L, Hemoglobin 9.7L, Hematocrit 31.6L , Mean Corpuscular Volume 88, Mean Corpuscular Hemoglobin 26.8L, Mean Corpuscular Hemoglobin Concent 30.5L, Red Cell Distribution Width 16.6H, Platelet Count 211, Mean Platelet Volume 6.3L, Neutrophils (%) (Auto) 78.2H, Lymphocytes (%) (Auto) 9.7L, Monocytes (%) (Auto) 9.8, Eosinophils (%) (Auto) 1.6, Basophils (%) (Auto) 0.6, Sodium Level 141, Potassium Level 5.2H, Chloride Level 108H, Carbon Dioxide Level 26, Anion Gap 7, Blood Urea Nitrogen 35H, Creatinine 2.2H, Estimat Glomerular Filtration Rate , Glucose Level 81, Calcium Level 8.9 Height (Feet): 5 Height (Inches): 2.00 Weight (Pounds): 185 Cardiovascular: normal rate Respiratory/Chest: lungs clear PETEY FAIR Jan 22, 2018 14:54
[2018-01-22] MEDS ORDERED: Tubing IV Secondary IV ONE (15:14)
--- NOTE | 2018-01-22 15:22 | Infectious Diseases Prog Note ---
Assessment/Plan Assessment/Plan Assessment: RLE cellulitis; improving- -v/ duplex: no DVT, v. insufficiency b/l Fever, resolved -no leukocytosis -u.a wbc 5-10, nit neg, leuk +3; ucx >100K E.coli (S Ancef), 10-20K P. mirabilis (s Ancef)--> Asymptomatic bacteriuria -CXR: no acute disease -Bcx NTD Cough- likely due to pulmonary congestion SCx : P mirabilis, E. coli ( colonizer ) -CXR 01/20: Equivocal mild interstitial congestion, if real then new or increased from previous study of 2 days earlier DM2 HTN asthma CVA/TIA hx DVT SNF resident ? PNC allergy reported on EMR, however patient denies it Plan: - cont PO keflex 250mg q 8h for cellulitis x 4 more days -01/21 SP IV Ancef d# 5 -01/18 SP IV Vanco #2 and Aztreonam #1 -monitor CBC/BMP, temperatures -leg elevation Subjective Constitutional: Denies: no symptoms, fever, chills, fatigue, anorexia, drenching sweats, other Allergies: Coded Allergies: DIAZEPAM (Verified Allergy, Unknown, 10/07/11) HYDROCODONE (Verified Allergy, Unknown, 07/07/10) MINOXIDIL (Verified Allergy, Unknown, 07/07/10) NAME ALERT (Verified Adverse Reaction, Unknown, 07/13/08) Objective Vital Signs Last 24 Hour Vital Signs Date Time Temp Pulse Resp B/P (MAP) Pulse Ox O2 Delivery O2 Flow Rate FiO2 01/22/18 12:00 98.4 71 23 128/61 97 Nasal Cannula 2.0 98.4 01/22/18 08:47 92 144/75 01/22/18 08:46 144/75 01/22/18 08:00 98.3 92 21 144/75 97 Nasal Cannula 2.0 98.3 01/22/18 07:30 88 20 Nasal Cannula 2.0 28 01/22/18 07:30 98 Nasal Cannula 2.0 28 01/22/18 07:30 Nasal Cannula 2.0 28 01/22/18 04:00 Nasal Cannula 2.0 01/22/18 04:00 96.3 101 20 113/65 95 Nasal Cannula 2.0 96.3 01/22/18 00:00 Nasal Cannula 2.0 01/22/18 00:00 97.2 93 20 127/68 92 Nasal Cannula 2.0 97.2 01/21/18 21:21 95 Nasal Cannula 2.0 28 01/21/18 21:21 Nasal Cannula 2.0 28 01/21/18 21:08 122/58 01/21/18 20:00 97.7 82 18 122/58 94 Nasal Cannula 2.0 97.7 01/21/18 20:00 Nasal Cannula 2.0 01/21/18 19:11 89 20 Nasal Cannula 28 01/21/18 16:00 98.7 68 23 117/78 99 Room Air 98.7 Height (Feet): 5 Height (Inches): 2.00 Weight (Pounds): 185 HEENT: mucous membranes moist Respiratory/Chest: no respiratory distress Cardiovascular: regularly irregular Abdomen: no organomegaly Microbiology Date/Time Source Procedure Growth Status 01/20/18 22:30 Sputum Gram Stain - Final Resulted 01/20/18 22:30 Sputum Sputum Culture - Preliminary Resulted Laboratory Tests Test 01/22/18 06:05 White Blood Count 8.1 K/UL (4.8-10.8) Red Blood Count 3.60 M/UL (4.20-5.40) L Hemoglobin 9.7 G/DL (12.0-16.0) L Hematocrit 31.6 % (37.0-47.0) L Mean Corpuscular Volume 88 FL (80-99) Mean Corpuscular Hemoglobin 26.8 PG (27.0-31.0) L Mean Corpuscular Hemoglobin Concent 30.5 G/DL (32.0-36.0) L Red Cell Distribution Width 16.6 % (11.6-14.8) H Platelet Count 211 K/UL (150-450) Mean Platelet Volume 6.3 FL (6.5-10.1) L Neutrophils (%) (Auto) 78.2 % (45.0-75.0) H Lymphocytes (%) (Auto) 9.7 % (20.0-45.0) L Monocytes (%) (Auto) 9.8 % (1.0-10.0) Eosinophils (%) (Auto) 1.6 % (0.0-3.0) Basophils (%) (Auto) 0.6 % (0.0-2.0) Sodium Level 141 MMOL/L (136-145) Potassium Level 5.2 MMOL/L (3.5-5.1) H Chloride Level 108 MMOL/L (98-107) H Carbon Dioxide Level 26 MMOL/L (21-32) Anion Gap 7 mmol/L (5-15) Blood Urea Nitrogen 35 mg/dL (7-18) H Creatinine 2.2 MG/DL (0.55-1.30) H Estimat Glomerular Filtration Rate mL/min (>60) Glucose Level 81 MG/DL (74-106) Calcium Level 8.9 MG/DL (8.5-10.1) Current Medications Medications (Trade) Dose Ordered Sig/Liss Route PRN Reason Start Time Stop Time Status Last Admin Dose Admin Acetaminophen (Tylenol) 650 mg Q4H PRN ORAL fever 01/17/18 22:15 02/16/18 22:14 01/20/18 16:38 Albuterol/ Ipratropium (Albuterol/ Ipratropium) 3 ml EVERY 4 HOURS PRN HHN Shortness of Breath 01/17/18 22:15 01/22/18 22:14 Allopurinol (Zyloprim) 100 mg DAILY ORAL 01/18/18 09:00 02/17/18 08:59 01/22/18 08:47 Aspirin (ASA) 81 mg DAILY NG 01/21/18 09:00 02/20/18 08:59 01/22/18 08:46 Bisacodyl (Dulcolax) 10 mg DAILYPRN PRN RECTAL Constipation 01/18/18 16:45 02/17/18 16:44 Cephalexin (Keflex) 250 mg EVERY 8 HOURS ORAL 01/21/18 22:00 01/28/18 21:59 01/22/18 14:11 Dextrose (Dextrose 50%) STAT PRN IV Hypoglycemia 01/17/18 22:15 02/16/18 22:14 Gabapentin (Neurontin) 300 mg QID ORAL 01/18/18 09:00 02/17/18 08:59 01/22/18 12:53 Guaifenesin (Robitussin) 100 mg Q4H PRN ORAL For Cough 01/20/18 15:15 02/19/18 15:14 01/21/18 00:30 Heparin Sodium (Porcine) (Heparin 5000 units/ml) 5,000 units EVERY 12 HOURS SUBQ 01/18/18 09:00 02/17/18 08:59 01/22/18 08:48 Isosorbide Dinitrate (Isordil) 5 mg EVERY 12 HOURS ORAL 01/18/18 09:00 02/17/18 08:59 01/22/18 08:46 Metoprolol Succinate (Toprol XL) 25 mg DAILY ORAL 01/18/18 09:00 02/17/18 08:59 01/22/18 08:47 Nitroglycerin (Ntg) 0.4 mg Q5MIN PRN SL Prn Chest Pain 01/17/18 22:15 02/16/18 22:14 Ondansetron HCl (Zofran) 4 mg Q6H PRN IVP Nausea & Vomiting 01/17/18 22:15 02/16/18 22:14 01/18/18 08:46 Oxybutynin Chloride (Ditropan) 15 mg DAILY ORAL 01/18/18 09:00 02/17/18 08:59 01/22/18 08:46 Oxycodone HCl (Roxicodone) 30 mg Q8H PRN ORAL For Pain 01/17/18 22:15 01/24/18 22:14 01/22/18 11:37 Polyethylene Glycol (Miralax) 17 gm DAILYPRN PRN ORAL Constipation 01/17/18 22:15 02/16/18 22:14 Temazepam (Restoril) 15 mg HSPRN PRN ORAL Insomnia 01/17/18 22:15 01/24/18 22:14 KANCHAN MORA M.D. Jan 22, 2018 15:21
--- NOTE | 2018-01-22 16:11 | Internal Med Progress Note ---
Subjective Date of Service: Jan 22, 2018 Physician Name Paul Mejia Attending Physician Christopher Villanueva MD Current Medications Medications (Trade) Dose Ordered Sig/Liss Route PRN Reason Start Time Stop Time Status Last Admin Dose Admin Acetaminophen (Tylenol) 650 mg Q4H PRN ORAL fever 01/17/18 22:15 02/16/18 22:14 01/20/18 16:38 Albuterol/ Ipratropium (Albuterol/ Ipratropium) 3 ml EVERY 4 HOURS PRN HHN Shortness of Breath 01/17/18 22:15 01/22/18 22:14 Allopurinol (Zyloprim) 100 mg DAILY ORAL 01/18/18 09:00 02/17/18 08:59 01/22/18 08:47 Aspirin (ASA) 81 mg DAILY NG 01/21/18 09:00 02/20/18 08:59 01/22/18 08:46 Bisacodyl (Dulcolax) 10 mg DAILYPRN PRN RECTAL Constipation 01/18/18 16:45 02/17/18 16:44 Cephalexin (Keflex) 250 mg EVERY 8 HOURS ORAL 01/21/18 22:00 01/28/18 21:59 01/22/18 14:11 Dextrose (Dextrose 50%) STAT PRN IV Hypoglycemia 01/17/18 22:15 02/16/18 22:14 Gabapentin (Neurontin) 300 mg QID ORAL 01/18/18 09:00 02/17/18 08:59 01/22/18 12:53 Guaifenesin (Robitussin) 100 mg Q4H PRN ORAL For Cough 01/20/18 15:15 02/19/18 15:14 01/21/18 00:30 Heparin Sodium (Porcine) (Heparin 5000 units/ml) 5,000 units EVERY 12 HOURS SUBQ 01/18/18 09:00 02/17/18 08:59 01/22/18 08:48 Isosorbide Dinitrate (Isordil) 5 mg EVERY 12 HOURS ORAL 01/18/18 09:00 02/17/18 08:59 01/22/18 08:46 Metoprolol Succinate (Toprol XL) 25 mg DAILY ORAL 01/18/18 09:00 02/17/18 08:59 01/22/18 08:47 Nitroglycerin (Ntg) 0.4 mg Q5MIN PRN SL Prn Chest Pain 01/17/18 22:15 02/16/18 22:14 Ondansetron HCl (Zofran) 4 mg Q6H PRN IVP Nausea & Vomiting 01/17/18 22:15 02/16/18 22:14 01/18/18 08:46 Oxybutynin Chloride (Ditropan) 15 mg DAILY ORAL 01/18/18 09:00 02/17/18 08:59 01/22/18 08:46 Oxycodone HCl (Roxicodone) 30 mg Q8H PRN ORAL For Pain 01/17/18 22:15 01/24/18 22:14 01/22/18 11:37 Polyethylene Glycol (Miralax) 17 gm DAILYPRN PRN ORAL Constipation 01/17/18 22:15 02/16/18 22:14 Temazepam (Restoril) 15 mg HSPRN PRN ORAL Insomnia 01/17/18 22:15 01/24/18 22:14 Allergies: Coded Allergies: DIAZEPAM (Verified Allergy, Unknown, 10/07/11) HYDROCODONE (Verified Allergy, Unknown, 07/07/10) MINOXIDIL (Verified Allergy, Unknown, 07/07/10) NAME ALERT (Verified Adverse Reaction, Unknown, 07/13/08) ROS Limited/Unobtainable: No Constitutional: Reports: no symptoms HEENT: Reports: no symptoms Cardiovascular: Reports: no symptoms Respiratory: Reports: no symptoms Gastrointestinal/Abdominal: Reports: no symptoms Genitourinary: Reports: no symptoms Neurologic/Psychiatric: Reports: no symptoms Subjective 82 YO F admitted with right leg pain; now cellulitis right leg and UTI. Cover for Int Saúl-Dr Villanueva Objective Last Vital Signs Date Time Temp Pulse Resp B/P (MAP) Pulse Ox O2 Delivery O2 Flow Rate FiO2 01/22/18 12:00 98.4 71 23 128/61 97 Nasal Cannula 2.0 98.4 01/22/18 07:30 28 Laboratory Tests Test 01/22/18 06:05 White Blood Count 8.1 K/UL (4.8-10.8) Red Blood Count 3.60 M/UL (4.20-5.40) L Hemoglobin 9.7 G/DL (12.0-16.0) L Hematocrit 31.6 % (37.0-47.0) L Mean Corpuscular Volume 88 FL (80-99) Mean Corpuscular Hemoglobin 26.8 PG (27.0-31.0) L Mean Corpuscular Hemoglobin Concent 30.5 G/DL (32.0-36.0) L Red Cell Distribution Width 16.6 % (11.6-14.8) H Platelet Count 211 K/UL (150-450) Mean Platelet Volume 6.3 FL (6.5-10.1) L Neutrophils (%) (Auto) 78.2 % (45.0-75.0) H Lymphocytes (%) (Auto) 9.7 % (20.0-45.0) L Monocytes (%) (Auto) 9.8 % (1.0-10.0) Eosinophils (%) (Auto) 1.6 % (0.0-3.0) Basophils (%) (Auto) 0.6 % (0.0-2.0) Sodium Level 141 MMOL/L (136-145) Potassium Level 5.2 MMOL/L (3.5-5.1) H Chloride Level 108 MMOL/L (98-107) H Carbon Dioxide Level 26 MMOL/L (21-32) Anion Gap 7 mmol/L (5-15) Blood Urea Nitrogen 35 mg/dL (7-18) H Creatinine 2.2 MG/DL (0.55-1.30) H Estimat Glomerular Filtration Rate mL/min (>60) Glucose Level 81 MG/DL (74-106) Calcium Level 8.9 MG/DL (8.5-10.1) Microbiology Date/Time Source Procedure Growth Status 01/20/18 22:30 Sputum Gram Stain - Final Resulted 01/20/18 22:30 Sputum Sputum Culture - Preliminary Resulted Intake and Output 01/21/18 01/22/18 19:00 07:00 Intake Total 480 ml Balance 480 ml Intake Oral 480 ml # Voids 4 # Bowel Movements 1 1 Objective General Appearance: WD/WN, alert, mild distress, obese EENT: PERRL/EOMI, normal ENT inspection, TMs normal Neck: non-tender, normal alignment, supple Cardiovascular: normal peripheral pulses, normal rate, regular rhythm, no gallop/murmur, no JVD Respiratory/Chest: chest wall non-tender, lungs clear, normal breath sounds, no respiratory distress, no accessory muscle use Abdomen: normal bowel sounds, non tender, soft, no organomegaly, no mass Extremities: normal range of motion, non-tender Edema: trace edema 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 (9) UTI (urinary tract infection) Assessment & Plan: E. Coli and Proteus. Cont cefazolin per ID Status: progressing PAUL MEJIA Jan 22, 2018 16:11
--- NOTE | 2018-01-22 22:40 | Diagnostic Imaging Report ---
APPROVED REPORT CPT Code: 24931 Present Symptoms Comments: R/O DVT BILATERAL: Imaging reveals a patent deep venous system bilaterally. There is no evidence of thrombus within the femoral, popliteal or left tibial segments. The greater saphenous veins are also within normal limits. Doppler indicates normal spontaneous flow within these segments. The right calf veins not well imaged. VENOUS INSUFFICIENCY: Imaging reveals venous insufficiency in the deep venous system and greater saphenous veins at the proximal, mid-thigh to knee level. Reflux lasted longer than 0.5 seconds, both legs. Technically difficult study due to skin condition (right calf area).
--- NOTE | 2018-01-23 21:37 | General Progress Note ---
Assessment/Plan Status: stable Assessment/Plan encephalopathy agitation zyprexa 2.5mg qhs/prn Subjective Date patient seen: Jan 21, 2018 Neurologic/Psychiatric: Reports: anxiety, depressed Allergies: Coded Allergies: DIAZEPAM (Verified Allergy, Unknown, 10/07/11) HYDROCODONE (Verified Allergy, Unknown, 07/07/10) MINOXIDIL (Verified Allergy, Unknown, 07/07/10) NAME ALERT (Verified Adverse Reaction, Unknown, 07/13/08) Objective Intake and Output 01/22/18 01/23/18 19:00 07:00 Intake Total 480 ml Balance 480 ml Intake Oral 480 ml Height (Feet): 5 Height (Inches): 2.00 Weight (Pounds): 185 General Appearance: no apparent distress, alert, confused Lee Ann Sutherland M.D. Jan 23, 2018 21:37
--- NOTE | 2018-01-23 21:38 | General Progress Note ---
Assessment/Plan Assessment/Plan encephalopathy agitation zyprexa 2.5mg qhs/prn Subjective Date patient seen: Jan 22, 2018 Neurologic/Psychiatric: Reports: anxiety, depressed, emotional problems Allergies: Coded Allergies: DIAZEPAM (Verified Allergy, Unknown, 10/07/11) HYDROCODONE (Verified Allergy, Unknown, 07/07/10) MINOXIDIL (Verified Allergy, Unknown, 07/07/10) NAME ALERT (Verified Adverse Reaction, Unknown, 07/13/08) Objective Intake and Output 01/22/18 01/23/18 19:00 07:00 Intake Total 480 ml Balance 480 ml Intake Oral 480 ml Height (Feet): 5 Height (Inches): 2.00 Weight (Pounds): 185 General Appearance: no apparent distress, alert Lee Ann Sutherland M.D. Jan 23, 2018 21:38
--- NOTE | 2018-01-24 15:00 | Discharge Summary ---
Discharge Summary Hospital Course Date of Admission Jan 17, 2018 at 20:39 Date of Discharge Jan 22, 2018 at 17:51 Admitting Diagnosis RLE cellulitis HPI Lorena Hughes is a 82 year old female who was admitted on Jan 17, 2018 at 20: 39 for Right Lower Extremity Cellulitis Hospital Course dc summary #[id number] Discharge Medications New Medications: Cephalexin* (Keflex*) 500 Mg Capsule 250 MG ORAL EVERY 6 HOURS for 3 Days, CAP Continued Medications: Allopurinol* (Allopurinol*) 100 Mg Tablet 100 MG ORAL DAILY, TAB Amlodipine/Atorvastatin 2.5-40 Mg (Amlodipine-Atorvast 2.5-40 Mg) 1 Each Tablet 1 TAB ORAL DAILY, TAB Furosemide* (Lasix*) 40 Mg Tablet 40 MG ORAL DAILY, TAB Gabapentin* (Gabapentin*) 400 Mg Capsule 300 MG ORAL QID, CAP 0 Refills Isosorbide Dinitrate* (Isordil*) 10 Mg Tablet 5 MG ORAL EVERY 12 HOURS, #20 TAB 0 Refills Metoprolol Succinate* (Metoprolol Succinate*) 25 Mg Tab.er.24h 25 MG ORAL DAILY, TAB Nitrofurantoin Monohyd/M-Cryst (Nitrofurantoin [place]-Mcr 100 mg) 100 Mg Capsule 100 MG ORAL Q12H, #14 CAP Oxybutynin Chloride (Oxybutynin Chloride) 5 Mg Tablet 15 MG ORAL, #30 TAB 0 Refills Oxycodone Hcl* (Oxycodone Hcl*) 15 Mg Tablet 30 MG ORAL Q8H PRN for For Pain, #30 TAB 0 Refills Discharge Condition Upon Discharge: stable Discharge Disposition Patient was discharged to SNF/Subacute Facility(03) Discharge Diagnoses: Scott (Vanczenaein)Princess NP Jan 24, 2018 15:00
--- NOTE | 2018-01-25 00:15 | Discharge Summary 2 SIG ---
DATE OF ADMISSION: 01/17/2018 DATE OF DISCHARGE: 01/22/2018 REASON FOR ADMISSION: 82-year-old female with past medical history significant for diabetes, hypertension, asthma, congestive heart failure, cardiomyopathy and CVA, [facility] with pain and swelling of the right lower extremity. The pain was 10/10, sharp, nonradiating. Extremity was red and warm to touch. The patient had a history of DVT in the past. She denied chest pain or shortness of breath. No fever. No chills. Upon evaluation in the emergency department, she was febrile, 101 degrees. No leukocytosis. BUN -35 and creatinine -2.3. Anemic with hemoglobin -10.7 and hematocrit- 35.1. Urinalysis evidence of UTI. Chest x-ray revealed no acute cardiopulmonary pathology. The patient was admitted with diagnoses of right lower extremity cellulitis, UTI, renal failure, hypertension, diabetes and asthma. HOSPITAL COURSE: The patient was admitted. Pulmonology, Nephrology, Infectious Disease specialist, GI, and Psychiatric evaluations were requested. The patient was started on empiric antibiotics. Urine culture revealed E. coli and Proteus. Blood cultures were negative. Sputum culture shows MRSA. Per ID, sputum culture was a colonizer. The patient was treated with antibiotics under ID supervision, and the patient was discharged on Keflex to continue for additional three days. Supplemental oxygen and pulmonary toilet provided as needed. No evidence of asthma exacerbation. Stable respiratory status. Nephrology closely followed the patient. The patient was kept off diuretic on low-potassium diet. Nephrotoxics were avoided. Electrolytes were corrected as needed. Renal ultrasound showed no hydronephrosis, but small bilateral kidneys. According to shipping and receiving operator, the patient had acute on chronic renal failure. The patient with history of chronic kidney disease. Blood sugar was managed with sliding scale of insulin. Diabetic diet was provided. Hyperkalemia was treated. Pain management provided. Blood pressure was managed with the beta-carter and remained stable. Symbicort was continued along with other home medications. GI closely followed the patient. The patient had an opioid-induced constipation along with anemia. Bowel regimen instituted. Diet slowly advanced as tolerated. Antiemetics were on board as needed. Anemia workup revealed anemia of chronic disease and iron deficiency anemia. The patient was on IV Venofer. Hemoglobin and hematocrit were closely monitored. No need for transfusion. Stool OB was negative. The patient was on PPI. The patient was working with Physical Therapy. Fall precautions were maintained. Swallow evaluation revealed mild increase in transit time. No other signs of aspiration. Patient was edentulous. Recommended mechanical soft chopped with thin liquid diet with aspiration /reflux precautions with one-to-one supervision. Psychiatry seen and evaluated the patient, diagnosed the patient with encephalopathy and agitation. The patient was started on Zyprexa per psychiatrist at bedtime and as needed. Hemoglobin A1c -6.4, at goal. Creatinine -2.2 prior to discharge. The patient was stable for discharge back to [facility]. FINAL DIAGNOSES: 1. Right lower extremity cellulitis. 2. Urinary tract infection with Escherichia coli and Proteus. 3. Acute on chronic renal failure. 4. Hypertension. 5. Diabetes. 6. Asthma. 7. Congestive heart failure with cardiomyopathy. 8. Osteoarthritis. 9. Cerebrovascular disease with history of cerebrovascular accident. DISCHARGE MEDICATIONS: See medication reconciliation list. DISCHARGE INSTRUCTION: The patient [facility] to [facility]. FOLLOWUP: Follow up with medical doctor at the facility. Christopher Villanueva M.D. I have been assigned to dictate discharge summary on this account and I was not involved in the patient's management. Princess [facility] N.PIlda DR: [place] JOB#: [id number] CC: RUFUS
== END 2018-01-22 17:51 | DRG 602 ==
LOC: EDBD 19:14 → EDBEDREQ 19:33 → EMR 20:37 → 4E 20:39 → EDBEDREQ 21:59 → 4E 01-18 22:06
DX: L03.115 Cellulitis of right lower limb (principal); G93.40 Encephalopathy, unspecified; N17.9 Acute kidney failure, unspecified; I13.0 Hypertensive heart and chronic kidney disease with heart failure and stage 1 through stage 4 chronic kidney disease, or unspecified chronic kidney disease; I42.9 Cardiomyopathy, unspecified; N39.0 Urinary tract infection, site not specified; E11.22 Type 2 diabetes mellitus with diabetic chronic kidney disease; I12.9 Hypertensive chronic kidney disease with stage 1 through stage 4 chronic kidney disease, or unspecified chronic kidney disease; B96.20 Unspecified Escherichia coli [E. coli] as the cause of diseases classified elsewhere; N18.9 Chronic kidney disease, unspecified; J45.909 Unspecified asthma, uncomplicated; Z88.6 Allergy status to analgesic agent; Z88.0 Allergy status to penicillin; Z88.8 Allergy status to other drugs, medicaments and biological substances; Z86.73 Personal history of transient ischemic attack (TIA), and cerebral infarction without residual deficits; B96.4 Proteus (mirabilis) (morganii) as the cause of diseases classified elsewhere; M19.90 Unspecified osteoarthritis, unspecified site; K21.9 Gastro-esophageal reflux disease without esophagitis; K59.03 Drug induced constipation; T40.2X5A Adverse effect of other opioids, initial encounter; D64.9 Anemia, unspecified; M10.9 Gout, unspecified; Z85.028 Personal history of other malignant neoplasm of stomach; J20.9 Acute bronchitis, unspecified; E87.5 Hyperkalemia; R45.1 Restlessness and agitation; Z22.322 Carrier or suspected carrier of Methicillin resistant Staphylococcus aureus
CPT/HCPCS: 36415; 71045; 76770; 80048; 80053; 80202; 81003; 82270; 82378; 82570; 82607; 82728; 82746; 83036; 83540; 83550; 83605; 83735; 83880; 83970; 84100; 84300; 84439; 84443; 84480; 85025; 85044; 85610; 85730; 87040; 87070; 87086; 87181; 87205; 93970; 94664; 94760; 99285; J2405

== ENCOUNTER 2018-04-18 11:44 | Outpatient (CLI) | payer MEDICARE, MEDICAID ==
[~2018-04-18 11:44] MED LIST changes: +CEPHALEXIN500 MG ORAL
[2018-04-18 12:41] LABS: ANION GAP 8 mmol/L (5-15); BLOOD UREA NITROGEN 27 mg/dL (7-18); CALCIUM 9.1 MG/DL (8.5-10.1); CARBON DIOXIDE 24 MMOL/L (21-32); CHLORIDE 107 MMOL/L (98-107); CHOLESTEROL 121 MG/DL (< 200); HDL CHOLESTEROL 75 MG/DL (40-60); PHOSPHORUS 4.3 MG/DL (2.5-4.9); POTASSIUM 4.9 MMOL/L (3.5-5.1); SODIUM 139 MMOL/L (136-145); TRIGLYCERIDES 61 MG/DL (30-150)
[2018-04-18 12:51] LABS: BASOPHILS % (AUTO) 0.6 % (0.0-2.0); EOSINOPHILS % (AUTO) 3.2 % (0.0-3.0); HEMATOCRIT 40.3 % (37.0-47.0); LYMPHOCYTES % (AUTO) 31.7 % (20.0-45.0); MEAN CORPUSCULAR VOLUME 94 FL (80-99); MONOCYTES % (AUTO) 9.7 % (1.0-10.0); NEUTROPHILS % (AUTO) 54.7 % (45.0-75.0); PLATELET COUNT 173 K/UL (150-450); RED BLOOD COUNT 4.27 M/UL (4.20-5.40); RED CELL DISTRIBUTION WIDTH 16.9 % (11.6-14.8); WHITE BLOOD COUNT 3.5 K/UL (4.8-10.8)
[2018-04-20 17:08] LABS: APPEARANCE,URINE SLIGHTLY CLOUDY; BILIRUBIN, URINE NEGATIVE (NEGATIVE); COLOR,URINE PALE YELLOW; GLUCOSE, URINE (UA) NEGATIVE (NEGATIVE); KETONES,URINE NEGATIVE (NEGATIVE); LEUKOCYTE ESTERASE ,URINE NEGATIVE (NEGATIVE); NITRITE,URINE NEGATIVE (NEGATIVE); PH,URINE 6.5 (4.5-8.0); PROTEIN,URINE NEGATIVE (NEGATIVE); UROBILINOGEN,URINE NORMAL MG/DL (0.0-1.0)
== END 2018-04-18 13:44 | disposition home or self-care (01) ==
LOC: LAB 11:44
DX: I12.9 Hypertensive chronic kidney disease with stage 1 through stage 4 chronic kidney disease, or unspecified chronic kidney disease (principal); N18.9 Chronic kidney disease, unspecified
CPT/HCPCS: 36415; 80048; 80061; 81001; 83970; 84100; 85025; 87086

== ENCOUNTER → 2018-06-14 | Outpatient (CLI) | payer MEDICARE, MEDICAID ==
[2018-06-14 14:17] LABS: BASOPHILS % (AUTO) 1.6 % (0.0-2.0); EOSINOPHILS % (AUTO) 3.5 % (0.0-3.0); HEMATOCRIT 33.8 % (37.0-47.0); HEMOGLOBIN 10.6 G/DL (12.0-16.0); LYMPHOCYTES % (AUTO) 28.7 % (20.0-45.0); MEAN CORPUSCULAR VOLUME 93 FL (80-99); MONOCYTES % (AUTO) 12.1 % (1.0-10.0); PLATELET COUNT 169 K/UL (150-450); RED BLOOD COUNT 3.63 M/UL (4.20-5.40); RED CELL DISTRIBUTION WIDTH 14.1 % (11.6-14.8); WHITE BLOOD COUNT 4.1 K/UL (4.8-10.8)
[2018-06-14 14:27] LABS: ANION GAP 11 mmol/L (5-15); BLOOD UREA NITROGEN 44 mg/dL (7-18); CALCIUM 8.5 MG/DL (8.5-10.1); CARBON DIOXIDE 21 MMOL/L (21-32); CHLORIDE 106 MMOL/L (98-107); CREATININE 2.7 MG/DL (0.55-1.30); POTASSIUM 4.5 MMOL/L (3.5-5.1); SODIUM 138 MMOL/L (136-145)
== END | disposition home or self-care (01) ==
LOC: LAB 13:33
DX: N18.3 Chronic kidney disease, stage 3 (moderate) (principal)
CPT/HCPCS: 36415; 80048; 85025

== ENCOUNTER 2018-06-16 10:36 | Inpatient (IN) | payer MEDICARE, MEDICAID ==
[~2018-06-16] VITALS: Ht 157.5 cm; Wt 81.6 kg
[2018-06-16 10:57] VITALS: BP 127/56
[2018-06-16 11:12] VITALS: BP 178/79
[2018-06-16 11:17] LABS: BASOPHILS % (AUTO) 1.7 % (0.0-2.0); HEMATOCRIT 35.8 % (37.0-47.0); HEMOGLOBIN 11.3 G/DL (12.0-16.0); LYMPHOCYTES % (AUTO) 27.8 % (20.0-45.0); MEAN CORPUSCULAR VOLUME 93 FL (80-99); NEUTROPHILS % (AUTO) 54.5 % (45.0-75.0); PLATELET COUNT 157 K/UL (150-450); RED BLOOD COUNT 3.87 M/UL (4.20-5.40); RED CELL DISTRIBUTION WIDTH 14.3 % (11.6-14.8); WHITE BLOOD COUNT 4.3 K/UL (4.8-10.8)
[2018-06-16 11:30] LABS: ANION GAP 8 mmol/L (5-15); BLOOD UREA NITROGEN 40 mg/dL (7-18); CARBON DIOXIDE 24 MMOL/L (21-32); CHLORIDE 106 MMOL/L (98-107); CREATININE 2.3 MG/DL (0.55-1.30); POTASSIUM 4.7 MMOL/L (3.5-5.1); SODIUM 138 MMOL/L (136-145)
[2018-06-16 11:44] LABS: ALANINE AMINOTRANSFERASE 18 U/L (12-78); ALBUMIN 2.8 G/DL (3.4-5.0); ALBUMIN/GLOBULIN RATIO 0.5 (1.0-2.7); ALKALINE PHOSPHATASE 132 U/L (46-116); ASPARTATE AMINO TRANSFERASE 25 U/L (15-37); BILIRUBIN,TOTAL 0.3 MG/DL (0.2-1.0)
--- NOTE | 2018-06-16 11:55 | Diagnostic Imaging Report ---
Indication: Dyspnea Technique: One view of the chest Comparison: 01/20/2018 Findings: Scarring the bilateral perihilar regions is unchanged. There is blunting of the bilateral costophrenic sulci. No new infiltrates. The heart size is upper limits of normal. Previously demonstrated interstitial prominence is no longer evident Impression: Possible small bilateral pleural effusions No acute process otherwise
[2018-06-16 12:15] VITALS: BP 121/61
[2018-06-16] MEDS ORDERED: Albuterol/Ipratropium 3ml neb HHN PRN (13:30)
[2018-06-16] MEDS ORDERED: Miralax 17gm pkt ORAL PRN (13:30)
[2018-06-16 14:14] LABS: CREATINE KINASE 81 U/L (26-308)
[2018-06-16 14:18] VITALS: BP 147/87
--- NOTE | 2018-06-16 14:25 | Emergency Room Report ---
History of Present Illness General Chief Complaint: Edema Source: Patient Present Illness HPI 82-year-old female with past medical history of hypertension asthma diabetes CVA cardiomyopathy chronic kidney disease presents with bilateralleg swelling for several days. leg swelling so severe that she is unable to ambulate. She was evaluated by her PMD Dr. Villanueva yesterday. He recommended evaluation the ER for admission. SHe is followed by vaccinator Dr. Flores. She has been taking Lasix intermittently with close supervision by both PMD and vaccinator. She denies chest pain. Denies fever. Her main concern at this time is severe constipation which is a chronic issue. However she has had bowel movement this morning which she felt was insufficient. She requests enema prior to any further treatment in the ED. Allergies: Coded Allergies: DIAZEPAM (Verified Allergy, Unknown, 10/07/11) HYDROCODONE (Verified Allergy, Unknown, 07/07/10) MINOXIDIL (Verified Allergy, Unknown, 07/07/10) NAME ALERT (Verified Adverse Reaction, Unknown, 07/13/08) Patient History Past Medical History: see triage record, old chart reviewed Past Surgical History: other - previous H&P reviewed Pertinent Family History: other - not pertinent to this visit Social History: Denies: smoking, alcohol use, drug use Nursing Documentation-[facility] Past Medical History: No History, Except For Hx Hypertension: Yes Hx Asthma: Yes Hx Diabetes: Yes Hx Cancer: No Hx Neurological Problems: No Hx Cerebrovascular Accident: Yes Hx Syncope: No Hx Weakness: Yes Review of Systems Constitutional: Reports: no symptoms; Denies: fever, malaise, weakness Cardiovascular: Reports: no symptoms Gastrointestinal: Reports: constipation All Other Systems: negative except mentioned in HPI Physical Exam Vital Signs Date Time Temp Pulse Resp B/P (MAP) Pulse Ox O2 Delivery O2 Flow Rate FiO2 06/16/18 10:44 98.3 75 18 116/67 100 Room Air 98.2 Sp02 EP Interpretation: reviewed, normal General Appearance: no apparent distress, alert, GCS 15, non-toxic, obese Head: normocephalic, atraumatic Eyes: bilateral eye normal inspection ENT: hearing grossly normal, normal pharynx, no angioedema, normal voice Neck: full range of motion, supple/symm/no masses Respiratory: chest non-tender, lungs clear, normal breath sounds, speaking full sentences Cardiovascular #1: regular rate, rhythm, edema - severe edema in the lower extremities with chronic venous stasis changes with lichenification more prominent in the right lower extremity compared to left Gastrointestinal: normal bowel sounds, non tender, soft, non-distended, no guarding, no rebound Rectal: deferred Genitourinary: deferred Neurologic: alert, oriented x3, responsive, sensory intact, speech normal Psychiatric: judgement/insight normal, memory normal, mood/affect normal Skin: well hydrated, rash, other - see above Medical Decision Making Lab Results Impression labs reviewed. I compared kidney function to previous lab values. EKG Diagnostic Results EKG Time: 11:18 EP Interpretation: rate 70 bpm normal sinus rhythm normal axis normal intervals Rate: normal Rhythm: NSR ST Segments: no acute changes Chest X-Ray Diagnostic Results Chest X-Ray Diagnostic Results : Chest X-Ray Ordered: Yes Impression: No acute disease Last Vital Signs Date Time Temp Pulse Resp B/P (MAP) Pulse Ox O2 Delivery O2 Flow Rate FiO2 06/16/18 12:15 61 18 121/61 100 Room Air 06/16/18 10:57 98.2 98.2 Disposition: ADMITTED INPATIENT Condition: Stable Physician Consult: Dr. Villanueva Referrals: Christopher Villanueva MD (PCP) VICTORIA REYES Jun 16, 2018 14:25
[2018-06-16 16:48] VITALS: BP 141/81
--- NOTE | 2018-06-16 16:57 | History & Physical ---
History and Physical History & Physicial Dictated for Int Med-Dr Villanueva no. [id number] Aníbal Cuellar MD Jun 16, 2018 16:57
[2018-06-16] MEDS: oxyCODONE 15mg IR tab ORAL PRN (21:21)
[2018-06-16] MEDS: Heparin 5000 units/ml inj SUBQ SCH (21:24)
--- NOTE | 2018-06-16 22:45 | History and Physical Report ---
DATE OF ADMISSION: 06/16/2018 CHIEF COMPLAINT: The patient is an 82-year-old female, who presents with a chief complaint of bilateral lower extremity swelling. HISTORY OF PRESENT ILLNESS: The patient is a resident of [facility]. The patient saw her primary care physician, Dr. Christopher Villanueva yesterday, 06/15/2018. The patient was noted to have bilateral lower extremity swelling. The patient has a history of deep venous thrombosis of the lower extremities. The patient also was admitted to [facility] from 01/17/2018 to 01/22/2018 for right lower extremity cellulitis. The patient was instructed to go to [place] emergency room for evaluation. The patient is admitted for bilateral lower extremity swelling to rule out deep venous thrombosis versus cellulitis. PAST MEDICAL HISTORY: Significant for, 1. Hypertension. 2. Diabetes type 2. 3. Asthma. 4. Congestive heart failure. 5. Cardiomyopathy. 6. Osteoarthritis. 7. Cerebrovascular disease, status post cerebral vascular accident x3, last being in 2017. 8. Chronic renal failure. 9. History of superficial deep venous thrombosis of the bilateral lower extremities. PAST SURGICAL HISTORY: Significant for, 1. Cholecystectomy. 2. Appendectomy. 3. Total abdominal hysterectomy secondary to fibroid uterus. 4. Throat surgery secondary to nodules. CURRENT MEDICATIONS: 1. Allopurinol 100 mg p.o. daily. 2. Amlodipine/atorvastatin 2.5/40 one tab p.o. daily. 3. Calcitriol 0.25 mcg daily. 4. Dexilant 60 mg p.o. daily. 5. Advair 100/50 one puff p.o. twice daily. 6. Furosemide 40 mg one tab p.o. twice daily. 7. Gabapentin 400 mg p.o. 4 times daily. 8. Isordil 5 mg p.o. twice daily. 9. Metoprolol 25 mg p.o. daily. 10. Oxybutynin 5 mg p.o. daily. ALLERGIES: The patient denies allergies, however listed in the chart are allergies to, 1. Valium. 2. Hydrocodone. 3. Minoxidil. 4. Penicillin. SOCIAL HISTORY: The patient is a . The patient lives at [facility]. The patient denies tobacco or alcohol use. REVIEW OF SYSTEMS: CONSTITUTIONAL: The patient denies weight loss or weight gain. The patient denies fevers or chills. HEENT: The patient denies ear or throat pain. The patient denies headache. CARDIOVASCULAR: The patient denies palpitations or chest pain. CHEST: The patient denies wheeze or shortness of breath. ABDOMEN: The patient denies nausea, vomiting, diarrhea, or constipation. GENITOURINARY: The patient denies dysuria or increased frequency of urination. NEUROMUSCULAR: The patient denies seizures or generalized weakness. PHYSICAL EXAMINATION: VITAL SIGNS: Temperature 98.3, respirations 18, pulse 75, and blood pressure 116/67. GENERAL: The patient is a well-developed and well-nourished female, in no apparent distress. HEENT: Eyes, pupils are equal and responsive to light and accommodation. Extraocular movements are intact. NECK: Supple without lymphadenopathy. CHEST: Lungs are clear to auscultation bilaterally without wheezes or rales. CARDIOVASCULAR: Regular rhythm and rate. S1 and S2 are normal without murmurs, rubs, or gallops. ABDOMEN: Soft, nontender, and nondistended. Positive bowel sounds. No evidence of hepatosplenomegaly. Currently, no rebound or guarding noted. EXTREMITIES: There is 1+ pitting edema in bilateral ankles to the knees. There is no erythema noted. There is no clubbing or cyanosis noted. RECTAL/GENITAL: Refused. NEUROLOGIC: Cranial nerves II through XII are grossly intact without focal deficits. Motor strength is 5/5 bilaterally. Deep tendon reflexes are 2+ plantar. LABORATORY STUDIES: WBC 4.3, hemoglobin 11.3, hematocrit 35.8, and platelets 257,000. Sodium 138, potassium 4.7, chloride 106, CO2 24, BUN 40, creatinine 2.3, and glucose 105. Troponin 0.0. Venous duplex Doppler of bilateral lower extremities are pending. ASSESSMENT: This is an 82-year-old female. 1. Bilateral lower extremity edema. 2. Renal failure, acute on chronic. 3. Congestive heart failure. 4. Hypertension. 5. Diabetes type 2. 6. Asthma. 7. Cardiomyopathy. 8. Cerebrovascular disease. 9. History of deep venous thrombosis. TREATMENT: 1. Bilateral lower extremity swelling. This may be secondary to congestive heart failure versus renal failure. A Nephrology consultation has been obtained with Dr. Flores. The patient has been started on Lasix. We will follow recommendations of Nephrology, Dr. Flores. 2. Renal failure, as above. This is acute on chronic. A Nephrology consultation has been obtained with Dr. Amor Flores. 3. Congestive heart failure. A Cardiology consultation has been obtained with Dr. Hernandez. 4. Hypertension. The patient will be continued on metoprolol as above. 5. Diabetes type 2. The patient is currently off antihyperglycemic medication. 6. Asthma. 7. Cardiomyopathy. 8. Cerebrovascular disease. 9. History of deep venous thrombosis. Aníbal Cuellar M.D. DR: DIALLO JOB#: [id number] CC:
[2018-06-17] VITALS: BP 115/58
[2018-06-17 04:00] VITALS: BP 127/65
[2018-06-17] MEDS: oxyCODONE 15mg IR tab ORAL PRN ×2 (05:59→15:07)
[2018-06-17 07:46] LABS: BASOPHILS % (AUTO) 0.8 % (0.0-2.0); EOSINOPHILS % (AUTO) 3.2 % (0.0-3.0); HEMATOCRIT 32.5 % (37.0-47.0); HEMOGLOBIN 10.1 G/DL (12.0-16.0); MEAN CORPUSCULAR VOLUME 93 FL (80-99); MONOCYTES % (AUTO) 13.2 % (1.0-10.0); NEUTROPHILS % (AUTO) 48.7 % (45.0-75.0); PLATELET COUNT 146 K/UL (150-450); RED CELL DISTRIBUTION WIDTH 14.2 % (11.6-14.8); WHITE BLOOD COUNT 4.7 K/UL (4.8-10.8)
[2018-06-17 08:00] VITALS: BP 115/63
[2018-06-17 08:15] LABS: ALBUMIN 2.8 G/DL (3.4-5.0); ANION GAP 8 mmol/L (5-15); BLOOD UREA NITROGEN 43 mg/dL (7-18); CALCIUM 8.8 MG/DL (8.5-10.1); CARBON DIOXIDE 25 MMOL/L (21-32); CHLORIDE 107 MMOL/L (98-107); CREATININE 2.6 MG/DL (0.55-1.30); PHOSPHORUS 4.9 MG/DL (2.5-4.9); POTASSIUM 4.4 MMOL/L (3.5-5.1); SODIUM 140 MMOL/L (136-145)
[2018-06-17] MEDS: Allopurinol 100mg Tab ORAL SCH (09:03)
[2018-06-17] MEDS: Metoprolol Succinate XL 25mg tab ORAL SCH (09:03)
[2018-06-17] MEDS: Heparin 5000 units/ml inj SUBQ SCH ×2 (09:07→21:56)
[2018-06-17 12:00] VITALS: BP 131/69
--- NOTE | 2018-06-17 12:36 | Consultation ---
History of Present Illness General Date patient seen: Jun 17, 2018 Time patient seen: 12:33 Chief Complaint: Edema Present Illness HPI 82 year old female with CHF HFpEF, CVT, HTN, HLD presents with LE edema, MORGAN/ CKD. Patient sent to ER to evaluate for DVT. BNP elevated. CXR with small effusions. Allergies: Coded Allergies: DIAZEPAM (Verified Allergy, Unknown, 10/07/11) HYDROCODONE (Verified Allergy, Unknown, 07/07/10) MINOXIDIL (Verified Allergy, Unknown, 07/07/10) NAME ALERT (Verified Adverse Reaction, Unknown, 07/13/08) Medication History Scheduled Allopurinol* (Allopurinol*), 100 MG ORAL DAILY, (Reported) Amlodipine/Atorvastatin 2.5-40 Mg (Amlodipine-Atorvast 2.5-40 Mg), 1 TAB ORAL DAILY, (Reported) Calcitriol (Calcitriol), 0.25 MCG PO 3XW, (Reported) Cephalexin* (Keflex*), 250 MG ORAL EVERY 6 HOURS Dexlansoprazole (Dexilant), 60 MG ORAL DAILY, (Reported) Fluticasone/Salmeterol (Advair 100-50 Diskus), 1 PUFF INH EVERY 12 HOURS, ( Reported) Furosemide* (Lasix*), 40 MG ORAL TWICE A DAY, (Reported) Furosemide* (Lasix*), 40 MG ORAL DAILY, (Reported) Gabapentin* (Gabapentin*), 300 MG ORAL QID, (Reported) Isosorbide Dinitrate* (Isordil*), 5 MG ORAL EVERY 12 HOURS, (Reported) Lidocaine (Lidocaine), 700 MG TP DAILY, (Reported) Metoprolol Succinate* (Metoprolol Succinate*), 25 MG ORAL DAILY, (Reported) Nitrofurantoin Monohyd/M-Cryst (Nitrofurantoin [place]-Mcr 100 mg), 100 MG ORAL Q12H Scheduled PRN Oxycodone Hcl* (Oxycodone Hcl*), 30 MG ORAL Q8H PRN for For Pain, (Reported) Miscellaneous Medications Oxybutynin Chloride (Oxybutynin Chloride), 15 MG ORAL, (Reported) Patient History Healthcare decision maker Resuscitation status Full Code Advanced Directive on File Review of Systems Constitutional: Reports: no symptoms Eye: Reports: no symptoms ENT: Reports: no symptoms Respiratory: Reports: no symptoms Cardiovascular: Reports: PND Gastrointestinal: Reports: no symptoms Genitourinary: Reports: no symptoms Musculoskeletal: Reports: no symptoms Skin: Reports: no symptoms Psychiatric: Reports: no symptoms Neurological: Reports: no symptoms, focal weakness, syncope, dizziness Endocrine: Reports: no symptoms Hematologic/Lymphatic: Reports: blood clots Physical Exam General Appearance: no apparent distress, alert Lines, tubes and drains: peripheral HEENT: normocephalic, atraumatic, mucous membranes moist Neck: normal alignment, supple Respiratory/Chest: chest wall non-tender, lungs clear, normal breath sounds Cardiovascular/Chest: normal peripheral pulses, normal rate, JVD Abdomen: normal bowel sounds, non tender Extremities: normal range of motion, non-tender Skin Exam: normal pigmentation Neurologic: pelletizer tender II-XII grossly normal, no motor/sensory deficits, oriented x 3 Last 24 Hour Vital Signs Date Time Temp Pulse Resp B/P (MAP) Pulse Ox O2 Delivery O2 Flow Rate FiO2 06/17/18 11:33 96 Room Air 06/17/18 11:33 Room Air 06/17/18 11:33 79 18 Room Air 06/17/18 09:04 115/63 06/17/18 09:03 91 115/63 06/17/18 09:00 Room Air 06/17/18 08:00 75 06/17/18 08:00 97.9 91 16 115/63 (80) 96 97.9 06/17/18 04:00 82 06/17/18 04:00 98.2 73 18 127/65 (85) 95 98.2 06/17/18 00:00 99.5 85 20 115/58 (77) 96 99.5 06/17/18 00:00 93 06/16/18 21:22 141/81 06/16/18 21:00 Room Air 06/16/18 20:00 72 06/16/18 16:48 97.0 87 18 141/81 (101) 99 97.0 06/16/18 15:47 61 06/16/18 14:25 Room Air 06/16/18 14:18 97.0 74 18 147/87 (107) 99 97.0 06/16/18 13:40 98.2 61 18 121/61 100 Room Air 98.2 Intake and Output 06/16/18 06/17/18 19:00 07:00 Intake Total 360 ml Output Total 1850 ml 1300 ml Balance -1490 ml -1300 ml Intake Oral 360 ml Output Urine Total 1850 ml 1300 ml # Bowel Movements 2 Laboratory Tests Test 06/17/18 07:20 White Blood Count 4.7 K/UL (4.8-10.8) L Red Blood Count 3.50 M/UL (4.20-5.40) L Hemoglobin 10.1 G/DL (12.0-16.0) L Hematocrit 32.5 % (37.0-47.0) L Mean Corpuscular Volume 93 FL (80-99) Mean Corpuscular Hemoglobin 28.8 PG (27.0-31.0) Mean Corpuscular Hemoglobin Concent 31.0 G/DL (32.0-36.0) L Red Cell Distribution Width 14.2 % (11.6-14.8) Platelet Count 146 K/UL (150-450) L Mean Platelet Volume 4.9 FL (6.5-10.1) L Neutrophils (%) (Auto) 48.7 % (45.0-75.0) Lymphocytes (%) (Auto) 34.0 % (20.0-45.0) Monocytes (%) (Auto) 13.2 % (1.0-10.0) H Eosinophils (%) (Auto) 3.2 % (0.0-3.0) H Basophils (%) (Auto) 0.8 % (0.0-2.0) Sodium Level 140 MMOL/L (136-145) Potassium Level 4.4 MMOL/L (3.5-5.1) Chloride Level 107 MMOL/L (98-107) Carbon Dioxide Level 25 MMOL/L (21-32) Anion Gap 8 mmol/L (5-15) Blood Urea Nitrogen 43 mg/dL (7-18) H Creatinine 2.6 MG/DL (0.55-1.30) H Estimat Glomerular Filtration Rate mL/min (>60) Glucose Level 101 MG/DL (74-106) Calcium Level 8.8 MG/DL (8.5-10.1) Phosphorus Level 4.9 MG/DL (2.5-4.9) Troponin I 0.006 ng/mL (0.000-0.056) Pro-B-Type Natriuretic Peptide 1086 pg/mL (0-125) H Albumin 2.8 G/DL (3.4-5.0) L Microbiology Date/Time Source Procedure Growth Status 06/16/18 16:00 Rectum VRE Culture Pending Resulted 06/16/18 16:00 Rectum - Preliminary Resulted Height (Feet): 5 Height (Inches): 2.00 Weight (Pounds): 180 Medications Current Medications Medications (Trade) Dose Ordered Sig/Liss Route PRN Reason Start Time Stop Time Status Last Admin Dose Admin Acetaminophen (Tylenol) 650 mg Q4H PRN ORAL Fever 06/16/18 13:30 07/16/18 13:29 Albuterol/ Ipratropium (Albuterol/ Ipratropium) 3 ml Q4H PRN HHN Shortness of Breath 06/16/18 13:30 06/21/18 13:29 Allopurinol (Zyloprim) 100 mg DAILY ORAL 06/17/18 09:00 07/17/18 08:59 06/17/18 09:03 Cetirizine HCl (ZyrTEC) 10 mg BEDTIME PRN ORAL Itching 06/17/18 00:00 07/17/18 00:00 06/17/18 05:58 Dextrose (Dextrose 50%) STAT PRN IV Hypoglycemia 06/16/18 12:30 07/16/18 12:29 Dextrose (Dextrose 50%) 50 ml STAT PRN IV Hypoglycemia 06/16/18 16:00 07/16/18 15:59 Furosemide (Lasix) 40 mg EVERY 8 HOURS IV 06/16/18 14:00 07/16/18 13:59 06/17/18 05:58 Gabapentin (Neurontin) 400 mg DAILY ORAL 06/16/18 18:00 07/16/18 17:59 06/17/18 09:03 Heparin Sodium (Porcine) (Heparin 5000 units/ml) 5,000 units EVERY 12 HOURS SUBQ 06/16/18 21:00 07/16/18 20:59 06/17/18 09:07 Isosorbide Dinitrate (Isordil) 5 mg EVERY 12 HOURS ORAL 06/16/18 21:00 07/16/18 20:59 06/17/18 09:04 Metoprolol Succinate (Toprol XL) 25 mg DAILY ORAL 8/10/18 09:00 07/17/18 08:59 06/17/18 09:03 Ondansetron HCl (Zofran) 4 mg Q6H PRN IVP Nausea & Vomiting 06/16/18 13:30 07/16/18 13:29 Oxycodone HCl (Roxicodone) 30 mg Q8H PRN ORAL For Pain 06/16/18 13:30 06/23/18 13:29 06/17/18 05:59 Polyethylene Glycol (Miralax) 17 gm DAILYPRN PRN ORAL Constipation 06/16/18 13:30 07/16/18 13:29 Assessment/Plan Status: stable Assessment/Plan Assessment: 1. Hypertension. 2. Diabetes type 2. 3. Asthma. 4. Congestive heart failure. 5. Cardiomyopathy. 6. Osteoarthritis. 7. Cerebrovascular disease, status post cerebral vascular accident x3, last being in 2017. 8. Chronic renal failure. 9. History of superficial deep venous thrombosis of the bilateral lower extremities. Plan: LE ultrasound to evaluate DVT Aspirin Statin Glucose control lasix to reduce filling pressures and edema Echocardiogram reviewed - diastolic heart disease Monitor BP renal ultrasound, urine electrolytes Vincent Hernandez M.D. Jun 17, 2018 12:36
--- NOTE | 2018-06-17 12:38 | Consultation ---
History of Present Illness General Date patient seen: Jun 17, 2018 Chief Complaint: Edema Present Illness HPI 82-year-old female with PMHx of hypertension, asthma, diabetes, CVA, cardiomyopathy chronic kidney disease presents with bilateral leg swelling for several days. She has been taking Lasix intermittently with close supervision by both PMD and [employer] architect. She denies chest pain. Denies fever. She is admitted for worsening of renal function. Allergies: Coded Allergies: DIAZEPAM (Verified Allergy, Unknown, 10/07/11) HYDROCODONE (Verified Allergy, Unknown, 07/07/10) MINOXIDIL (Verified Allergy, Unknown, 07/07/10) NAME ALERT (Verified Adverse Reaction, Unknown, 07/13/08) Medication History Scheduled Allopurinol* (Allopurinol*), 100 MG ORAL DAILY, (Reported) Amlodipine/Atorvastatin 2.5-40 Mg (Amlodipine-Atorvast 2.5-40 Mg), 1 TAB ORAL DAILY, (Reported) Calcitriol (Calcitriol), 0.25 MCG PO 3XW, (Reported) Cephalexin* (Keflex*), 250 MG ORAL EVERY 6 HOURS Dexlansoprazole (Dexilant), 60 MG ORAL DAILY, (Reported) Fluticasone/Salmeterol (Advair 100-50 Diskus), 1 PUFF INH EVERY 12 HOURS, ( Reported) Furosemide* (Lasix*), 40 MG ORAL TWICE A DAY, (Reported) Furosemide* (Lasix*), 40 MG ORAL DAILY, (Reported) Gabapentin* (Gabapentin*), 300 MG ORAL QID, (Reported) Isosorbide Dinitrate* (Isordil*), 5 MG ORAL EVERY 12 HOURS, (Reported) Lidocaine (Lidocaine), 700 MG TP DAILY, (Reported) Metoprolol Succinate* (Metoprolol Succinate*), 25 MG ORAL DAILY, (Reported) Nitrofurantoin Monohyd/M-Cryst (Nitrofurantoin [place]-Mcr 100 mg), 100 MG ORAL Q12H Scheduled PRN Oxycodone Hcl* (Oxycodone Hcl*), 30 MG ORAL Q8H PRN for For Pain, (Reported) Miscellaneous Medications Oxybutynin Chloride (Oxybutynin Chloride), 15 MG ORAL, (Reported) Patient History Healthcare decision maker Resuscitation status Full Code Advanced Directive on File Past Medical/Surgical History Past Medical/Surgical History: (1) DM (diabetes mellitus) (2) Gastric cancer (3) HTN (hypertension) (4) Cardiomyopathy (5) Gout (6) Cerebral vascular disease Review of Systems All Other Systems: negative except mentioned in HPI Physical Exam General Appearance: WD/WN Lines, tubes and drains: peripheral HEENT: normocephalic, atraumatic Neck: non-tender, normal alignment, supple Respiratory/Chest: chest wall non-tender, lungs clear Breasts: no masses Cardiovascular/Chest: normal peripheral pulses Abdomen: normal bowel sounds, non tender Genitourinary/Rectal: normal genital exam Extremities: normal range of motion Skin Exam: normal pigmentation Neurologic: results engineer II-XII grossly normal Last 24 Hour Vital Signs Date Time Temp Pulse Resp B/P (MAP) Pulse Ox O2 Delivery O2 Flow Rate FiO2 06/17/18 11:33 96 Room Air 06/17/18 11:33 Room Air 06/17/18 11:33 79 18 Room Air 06/17/18 09:04 115/63 06/17/18 09:03 91 115/63 06/17/18 09:00 Room Air 06/17/18 08:00 75 06/17/18 08:00 97.9 91 16 115/63 (80) 96 97.9 06/17/18 04:00 82 06/17/18 04:00 98.2 73 18 127/65 (85) 95 98.2 06/17/18 00:00 99.5 85 20 115/58 (77) 96 99.5 06/17/18 00:00 93 06/16/18 21:22 141/81 06/16/18 21:00 Room Air 06/16/18 20:00 72 06/16/18 16:48 97.0 87 18 141/81 (101) 99 97.0 06/16/18 15:47 61 06/16/18 14:25 Room Air 06/16/18 14:18 97.0 74 18 147/87 (107) 99 97.0 06/16/18 13:40 98.2 61 18 121/61 100 Room Air 98.2 Intake and Output 06/16/18 06/17/18 19:00 07:00 Intake Total 360 ml Output Total 1850 ml 1300 ml Balance -1490 ml -1300 ml Intake Oral 360 ml Output Urine Total 1850 ml 1300 ml # Bowel Movements 2 Laboratory Tests Test 06/17/18 07:20 White Blood Count 4.7 K/UL (4.8-10.8) L Red Blood Count 3.50 M/UL (4.20-5.40) L Hemoglobin 10.1 G/DL (12.0-16.0) L Hematocrit 32.5 % (37.0-47.0) L Mean Corpuscular Volume 93 FL (80-99) Mean Corpuscular Hemoglobin 28.8 PG (27.0-31.0) Mean Corpuscular Hemoglobin Concent 31.0 G/DL (32.0-36.0) L Red Cell Distribution Width 14.2 % (11.6-14.8) Platelet Count 146 K/UL (150-450) L Mean Platelet Volume 4.9 FL (6.5-10.1) L Neutrophils (%) (Auto) 48.7 % (45.0-75.0) Lymphocytes (%) (Auto) 34.0 % (20.0-45.0) Monocytes (%) (Auto) 13.2 % (1.0-10.0) H Eosinophils (%) (Auto) 3.2 % (0.0-3.0) H Basophils (%) (Auto) 0.8 % (0.0-2.0) Sodium Level 140 MMOL/L (136-145) Potassium Level 4.4 MMOL/L (3.5-5.1) Chloride Level 107 MMOL/L (98-107) Carbon Dioxide Level 25 MMOL/L (21-32) Anion Gap 8 mmol/L (5-15) Blood Urea Nitrogen 43 mg/dL (7-18) H Creatinine 2.6 MG/DL (0.55-1.30) H Estimat Glomerular Filtration Rate mL/min (>60) Glucose Level 101 MG/DL (74-106) Calcium Level 8.8 MG/DL (8.5-10.1) Phosphorus Level 4.9 MG/DL (2.5-4.9) Troponin I 0.006 ng/mL (0.000-0.056) Pro-B-Type Natriuretic Peptide 1086 pg/mL (0-125) H Albumin 2.8 G/DL (3.4-5.0) L Microbiology Date/Time Source Procedure Growth Status 06/16/18 16:00 Rectum VRE Culture Pending Resulted 06/16/18 16:00 Rectum - Preliminary Resulted Height (Feet): 5 Height (Inches): 2.00 Weight (Pounds): 180 Medications Current Medications Medications (Trade) Dose Ordered Sig/Liss Route PRN Reason Start Time Stop Time Status Last Admin Dose Admin Acetaminophen (Tylenol) 650 mg Q4H PRN ORAL Fever 06/16/18 13:30 07/16/18 13:29 Albuterol/ Ipratropium (Albuterol/ Ipratropium) 3 ml Q4H PRN HHN Shortness of Breath 06/16/18 13:30 06/21/18 13:29 Allopurinol (Zyloprim) 100 mg DAILY ORAL 06/17/18 09:00 07/17/18 08:59 06/17/18 09:03 Cetirizine HCl (ZyrTEC) 10 mg BEDTIME PRN ORAL Itching 06/17/18 00:00 07/17/18 00:00 06/17/18 05:58 Dextrose (Dextrose 50%) STAT PRN IV Hypoglycemia 06/16/18 12:30 07/16/18 12:29 Dextrose (Dextrose 50%) 50 ml STAT PRN IV Hypoglycemia 06/16/18 16:00 07/16/18 15:59 Furosemide (Lasix) 40 mg EVERY 8 HOURS IV 06/16/18 14:00 07/16/18 13:59 06/17/18 05:58 Gabapentin (Neurontin) 400 mg DAILY ORAL 06/16/18 18:00 07/16/18 17:59 06/17/18 09:03 Heparin Sodium (Porcine) (Heparin 5000 units/ml) 5,000 units EVERY 12 HOURS SUBQ 06/16/18 21:00 07/16/18 20:59 06/17/18 09:07 Isosorbide Dinitrate (Isordil) 5 mg EVERY 12 HOURS ORAL 06/16/18 21:00 07/16/18 20:59 06/17/18 09:04 Metoprolol Succinate (Toprol XL) 25 mg DAILY ORAL 06/17/18 09:00 07/17/18 08:59 06/17/18 09:03 Ondansetron HCl (Zofran) 4 mg Q6H PRN IVP Nausea & Vomiting 06/16/18 13:30 07/16/18 13:29 Oxycodone HCl (Roxicodone) 30 mg Q8H PRN ORAL For Pain 06/16/18 13:30 06/23/18 13:29 06/17/18 05:59 Polyethylene Glycol (Miralax) 17 gm DAILYPRN PRN ORAL Constipation 06/16/18 13:30 07/16/18 13:29 Assessment/Plan Problem List: (1) Acute on chronic renal failure ICD Codes: N17.9 - Acute on chronic renal failure; N18.9 - Chronic kidney disease, unspecified SNOMED: 094697236 (2) Asthma ICD Codes: J45.909 - Asthma SNOMED: 795523291 (3) HTN (hypertension) ICD Codes: I10 - HTN (hypertension) SNOMED: 48068169 (4) GERD (gastroesophageal reflux disease) ICD Codes: K21.9 - GERD (gastroesophageal reflux disease) SNOMED: 261230116 (5) Gout ICD Codes: M10.9 - Gout SNOMED: 68173270 (6) DM (diabetes mellitus) ICD Codes: E11.9 - Type 2 diabetes mellitus without complications SNOMED: 95194767 Assessment/Plan renal studies urine electrolytes respiratory treatment diuretics pt/ot symptomatic treatment monitor BP Roberta Durán MD Jun 17, 2018 12:38
--- NOTE | 2018-06-17 13:36 | Cardiology Report ---
APPROVED REPORT EKG Measurement Heart [id number] Sinus rhythm with sinus arrhythmia with occasional premature ventricular complexes Cannot rule out Anterior infarct, age undetermined Abnormal ECG
--- NOTE | 2018-06-17 14:34 | Consultation ---
Consult Note Assessment/Plan Renal consult dictated # [id number] Amor Flores MD Jun 17, 2018 14:34
--- NOTE | 2018-06-17 15:39 | Cardiology Report ---
APPROVED REPORT EXAM: Two-dimensional and M-mode echocardiogram with Doppler and color Doppler. INDICATION Left ventricular function M-Mode DIMENSIONS IVSd1.5 (0.7-1.1cm)Left Atrium (MM)4.4 (1.6-4.0cm) LVDd4.9 (3.5-5.6cm)Aortic Root3.1 (2.0-3.7cm) PWd0.9 (0.7-1.1cm)Aortic Cusp Exc.1.7 (1.5-2.0cm) LVDs3.4 (2.5-4.0cm) PWs0.9 cm Technically difficult study due to poor acoustical windows. Normal left ventricular chamber size, systolic function and wall motion. Left ventricular ejection fraction estimated to be 55-60%. No evidence of left ventricular hypertrophy. No evidence of pericardial or pleural effusion. All other cardiac chamber sizes are within normal limits. Focal aortic valve sclerosis with adequate cusp excursion. Thickened mitral valve leaflets with normal excursion. Mild mitral annulus and aortic root calcification. Pulmonic valve not well visualized. Normal tricuspid valve structure. IVC is normal in size and collapsible with respiration. A color flow and spectral Doppler study was performed and revealed: Trace aortic regurgitation. Trace mitral regurgitation. Mitral diastolic velocities suggest reduced left ventricular relaxation c/w diastolic dysfunction grade 1. Trace tricuspid regurgitation. Tricuspid systolic velocities suggests peak right ventricular systolic pressure of 18mmHg
[2018-06-17 16:00] VITALS: BP 130/72
--- NOTE | 2018-06-17 16:42 | Internal Med Progress Note ---
Subjective Physician Name Christopher Villanueva Attending Physician Christopher Villanueva MD Current Medications Medications (Trade) Dose Ordered Sig/Liss Route PRN Reason Start Time Stop Time Status Last Admin Dose Admin Acetaminophen (Tylenol) 650 mg Q4H PRN ORAL Fever 06/16/18 13:30 07/16/18 13:29 Albuterol/ Ipratropium (Albuterol/ Ipratropium) 3 ml Q4H PRN HHN Shortness of Breath 06/16/18 13:30 06/21/18 13:29 Allopurinol (Zyloprim) 100 mg DAILY ORAL 06/17/18 09:00 07/17/18 08:59 06/17/18 09:03 Cetirizine HCl (ZyrTEC) 10 mg BEDTIME PRN ORAL Itching 06/17/18 00:00 07/17/18 00:00 06/17/18 05:58 Dextrose (Dextrose 50%) STAT PRN IV Hypoglycemia 06/16/18 12:30 07/16/18 12:29 Dextrose (Dextrose 50%) 50 ml STAT PRN IV Hypoglycemia 06/16/18 16:00 07/16/18 15:59 Furosemide (Lasix) 40 mg EVERY 8 HOURS IV 06/16/18 14:00 07/16/18 13:59 06/17/18 05:58 Gabapentin (Neurontin) 400 mg DAILY ORAL 06/16/18 18:00 07/16/18 17:59 06/17/18 09:03 Heparin Sodium (Porcine) (Heparin 5000 units/ml) 5,000 units EVERY 12 HOURS SUBQ 06/16/18 21:00 07/16/18 20:59 06/17/18 09:07 Isosorbide Dinitrate (Isordil) 5 mg EVERY 12 HOURS ORAL 06/16/18 21:00 07/16/18 20:59 06/17/18 09:04 Metoprolol Succinate (Toprol XL) 25 mg DAILY ORAL 06/17/18 09:00 07/17/18 08:59 06/17/18 09:03 Ondansetron HCl (Zofran) 4 mg Q6H PRN IVP Nausea & Vomiting 06/16/18 13:30 07/16/18 13:29 Oxycodone HCl (Roxicodone) 30 mg Q8H PRN ORAL For Pain 06/16/18 13:30 06/23/18 13:29 06/17/18 15:07 Polyethylene Glycol (Miralax) 17 gm DAILYPRN PRN ORAL Constipation 06/16/18 13:30 07/16/18 13:29 Allergies: Coded Allergies: DIAZEPAM (Verified Allergy, Unknown, 10/07/11) HYDROCODONE (Verified Allergy, Unknown, 07/07/10) MINOXIDIL (Verified Allergy, Unknown, 07/07/10) NAME ALERT (Verified Adverse Reaction, Unknown, 07/13/08) Subjective awake, responsive, alert, NAD, NO CP or SOB Objective Last Vital Signs Date Time Temp Pulse Resp B/P (MAP) Pulse Ox O2 Delivery O2 Flow Rate FiO2 06/17/18 16:06 63 06/17/18 12:00 97.9 16 131/69 (89) 95 97.9 06/17/18 11:33 Room Air Laboratory Tests Test 06/17/18 07:20 White Blood Count 4.7 K/UL (4.8-10.8) L Red Blood Count 3.50 M/UL (4.20-5.40) L Hemoglobin 10.1 G/DL (12.0-16.0) L Hematocrit 32.5 % (37.0-47.0) L Mean Corpuscular Volume 93 FL (80-99) Mean Corpuscular Hemoglobin 28.8 PG (27.0-31.0) Mean Corpuscular Hemoglobin Concent 31.0 G/DL (32.0-36.0) L Red Cell Distribution Width 14.2 % (11.6-14.8) Platelet Count 146 K/UL (150-450) L Mean Platelet Volume 4.9 FL (6.5-10.1) L Neutrophils (%) (Auto) 48.7 % (45.0-75.0) Lymphocytes (%) (Auto) 34.0 % (20.0-45.0) Monocytes (%) (Auto) 13.2 % (1.0-10.0) H Eosinophils (%) (Auto) 3.2 % (0.0-3.0) H Basophils (%) (Auto) 0.8 % (0.0-2.0) Sodium Level 140 MMOL/L (136-145) Potassium Level 4.4 MMOL/L (3.5-5.1) Chloride Level 107 MMOL/L (98-107) Carbon Dioxide Level 25 MMOL/L (21-32) Anion Gap 8 mmol/L (5-15) Blood Urea Nitrogen 43 mg/dL (7-18) H Creatinine 2.6 MG/DL (0.55-1.30) H Estimat Glomerular Filtration Rate mL/min (>60) Glucose Level 101 MG/DL (74-106) Calcium Level 8.8 MG/DL (8.5-10.1) Phosphorus Level 4.9 MG/DL (2.5-4.9) Troponin I 0.006 ng/mL (0.000-0.056) Pro-B-Type Natriuretic Peptide 1086 pg/mL (0-125) H Albumin 2.8 G/DL (3.4-5.0) L Microbiology Date/Time Source Procedure Growth Status 06/16/18 16:00 Rectum VRE Culture Pending Resulted 06/16/18 16:00 Rectum - Preliminary Resulted Intake and Output 06/16/18 06/17/18 19:00 07:00 Intake Total 360 ml Output Total 1850 ml 1300 ml Balance -1490 ml -1300 ml Intake Oral 360 ml Output Urine Total 1850 ml 1300 ml # Bowel Movements 2 Objective General: No acute distress, awake and alert HEENT: NCAT, sclera anicteric, PERRL, EOMI. Neck: Supple, no significant jugular venous distention, Lungs: Good inspiratory effort, no accessory muscle use, clear to auscultation bilaterally, no Wheeze or Rales. Heart: Regular rate and rhythm, normal S1/S2, no murmurs. Abdomen: soft, nontender, nondistended. Normoactive bowel sounds, Morbid obesity. : Daley cath Extremities: No Cyanosis , clubbing< +2 edema. Neuro: A&O x 3, Able to move all extremities Skin: warm, + rash in UE's. Psych: Normal mood and affect Assessment/Plan Assessment/Plan 1. Hypertension. 2. Diabetes type 2. 3. Asthma. 4. Congestive heart failure with HFpPF. 5. Cardiomyopathy. 6. Osteoarthritis. 7. Cerebrovascular disease, status post cerebral vascular accident x3, last being in 2017. 8. MORGAN on Chronic renal failure. 9. History of superficial deep venous thrombosis of the bilateral lower extremities. 10. Morbid Obesity. Plan: monitor labs including kidney function switch Lasix to Bumex IV PT Mobility Full code Heparin SQ Christopher Villanueva MD Jun 17, 2018 16:42
--- NOTE | 2018-06-17 16:45 | Diagnostic Imaging Report ---
APPROVED REPORT CPT Code: 43007 Present Symptoms Comments: BILATERAL LEGS PAIN. BILATERAL: Imaging reveals a patent deep venous system bilaterally. There is no evidence of thrombus within the femoral, popliteal or tibial segments. The greater saphenous veins are also within normal limits. Doppler indicates normal spontaneous flow within these segments.Anterior tibial veins not imaged bilaterally due to edema and patient's body habitus.
[2018-06-17 20:00] VITALS: BP 137/72
--- NOTE | 2018-06-17 23:28 | Consultation ---
History of Present Illness General Date patient seen: Jun 17, 2018 Chief Complaint: Edema Present Illness HPI 82-year-old female, who presents with a chief complaint of bilateral lower extremity swelling. The pt has anxiety and fatigue Allergies: Coded Allergies: DIAZEPAM (Verified Allergy, Unknown, 10/07/11) HYDROCODONE (Verified Allergy, Unknown, 07/07/10) MINOXIDIL (Verified Allergy, Unknown, 07/07/10) NAME ALERT (Verified Adverse Reaction, Unknown, 07/13/08) Medication History Scheduled Allopurinol* (Allopurinol*), 100 MG ORAL DAILY, (Reported) Amlodipine/Atorvastatin 2.5-40 Mg (Amlodipine-Atorvast 2.5-40 Mg), 1 TAB ORAL DAILY, (Reported) Calcitriol (Calcitriol), 0.25 MCG PO 3XW, (Reported) Cephalexin* (Keflex*), 250 MG ORAL EVERY 6 HOURS Dexlansoprazole (Dexilant), 60 MG ORAL DAILY, (Reported) Fluticasone/Salmeterol (Advair 100-50 Diskus), 1 PUFF INH EVERY 12 HOURS, ( Reported) Furosemide* (Lasix*), 40 MG ORAL TWICE A DAY, (Reported) Furosemide* (Lasix*), 40 MG ORAL DAILY, (Reported) Gabapentin* (Gabapentin*), 300 MG ORAL QID, (Reported) Isosorbide Dinitrate* (Isordil*), 5 MG ORAL EVERY 12 HOURS, (Reported) Lidocaine (Lidocaine), 700 MG TP DAILY, (Reported) Metoprolol Succinate* (Metoprolol Succinate*), 25 MG ORAL DAILY, (Reported) Nitrofurantoin Monohyd/M-Cryst (Nitrofurantoin [place]-Mcr 100 mg), 100 MG ORAL Q12H Scheduled PRN Oxycodone Hcl* (Oxycodone Hcl*), 30 MG ORAL Q8H PRN for For Pain, (Reported) Miscellaneous Medications Oxybutynin Chloride (Oxybutynin Chloride), 15 MG ORAL, (Reported) Patient History Limited by: medical condition History Provided By: Patient, Medical Record, PMD Healthcare decision maker Resuscitation status Full Code Advanced Directive on File Past Medical/Surgical History Past Medical/Surgical History: (1) Leg pain, right (2) Acute bronchitis (3) Renal failure (4) Hyperkalemia (5) Edema (6) CHF (congestive heart failure) (7) Cerebral vascular disease (8) Chest pain (9) MRSA (methicillin resistant Staphylococcus aureus) (10) Congestive heart failure (11) Pneumonia (12) Dehydration, mild (13) Acute renal injury (14) Osteoarthritis, knee (15) Esophageal stricture (16) Diarrhea (17) UTI (urinary tract infection) with pyuria (18) Renal insufficiency (19) Gout (20) GERD (gastroesophageal reflux disease) (21) Cardiomyopathy (22) Asthma (23) HTN (hypertension) (24) CKD (chronic kidney disease) (25) Diabetes mellitus (26) Gastric cancer (27) Cellulitis (28) Anemia (29) Abdominal pain (30) DM (diabetes mellitus) (31) Therapeutic opioid-induced constipation (OIC) (32) ARF (acute renal failure) (33) Acute on chronic renal failure Review of Systems Psychiatric: Reports: prior hx, anxiety Physical Exam General Appearance: no apparent distress, alert Neurologic: oriented x 3, responsive, depressed affect Last 24 Hour Vital Signs Date Time Temp Pulse Resp B/P (MAP) Pulse Ox O2 Delivery O2 Flow Rate FiO2 06/17/18 21:54 137/72 06/17/18 20:00 97.9 68 18 137/72 (93) 95 97.9 06/17/18 20:00 78 06/17/18 16:06 63 06/17/18 16:00 97.1 83 16 130/72 (91) 95 97.1 06/17/18 12:00 97.9 83 16 131/69 (89) 95 97.9 06/17/18 12:00 79 06/17/18 11:33 96 Room Air 06/17/18 11:33 Room Air 06/17/18 11:33 79 18 Room Air 06/17/18 09:04 115/63 06/17/18 09:03 91 115/63 06/17/18 09:00 Room Air 06/17/18 08:00 75 06/17/18 08:00 97.9 91 16 115/63 (80) 96 97.9 06/17/18 04:00 82 06/17/18 04:00 98.2 73 18 127/65 (85) 95 98.2 06/17/18 00:00 99.5 85 20 115/58 (77) 96 99.5 06/17/18 00:00 93 Intake and Output 06/16/18 06/17/18 19:00 07:00 Intake Total 360 ml Output Total 1850 ml 1300 ml Balance -1490 ml -1300 ml Intake Oral 360 ml Output Urine Total 1850 ml 1300 ml # Bowel Movements 2 Laboratory Tests Test 06/17/18 07:20 White Blood Count 4.7 K/UL (4.8-10.8) L Red Blood Count 3.50 M/UL (4.20-5.40) L Hemoglobin 10.1 G/DL (12.0-16.0) L Hematocrit 32.5 % (37.0-47.0) L Mean Corpuscular Volume 93 FL (80-99) Mean Corpuscular Hemoglobin 28.8 PG (27.0-31.0) Mean Corpuscular Hemoglobin Concent 31.0 G/DL (32.0-36.0) L Red Cell Distribution Width 14.2 % (11.6-14.8) Platelet Count 146 K/UL (150-450) L Mean Platelet Volume 4.9 FL (6.5-10.1) L Neutrophils (%) (Auto) 48.7 % (45.0-75.0) Lymphocytes (%) (Auto) 34.0 % (20.0-45.0) Monocytes (%) (Auto) 13.2 % (1.0-10.0) H Eosinophils (%) (Auto) 3.2 % (0.0-3.0) H Basophils (%) (Auto) 0.8 % (0.0-2.0) Sodium Level 140 MMOL/L (136-145) Potassium Level 4.4 MMOL/L (3.5-5.1) Chloride Level 107 MMOL/L (98-107) Carbon Dioxide Level 25 MMOL/L (21-32) Anion Gap 8 mmol/L (5-15) Blood Urea Nitrogen 43 mg/dL (7-18) H Creatinine 2.6 MG/DL (0.55-1.30) H Estimat Glomerular Filtration Rate mL/min (>60) Glucose Level 101 MG/DL (74-106) Calcium Level 8.8 MG/DL (8.5-10.1) Phosphorus Level 4.9 MG/DL (2.5-4.9) Troponin I 0.006 ng/mL (0.000-0.056) Pro-B-Type Natriuretic Peptide 1086 pg/mL (0-125) H Albumin 2.8 G/DL (3.4-5.0) L Height (Feet): 5 Height (Inches): 2.00 Weight (Pounds): 180 Medications Current Medications Medications (Trade) Dose Ordered Sig/Liss Route PRN Reason Start Time Stop Time Status Last Admin Dose Admin Acetaminophen (Tylenol) 650 mg Q4H PRN ORAL Fever 06/16/18 13:30 07/16/18 13:29 Albuterol/ Ipratropium (Albuterol/ Ipratropium) 3 ml Q4H PRN HHN Shortness of Breath 06/16/18 13:30 06/21/18 13:29 Allopurinol (Zyloprim) 100 mg DAILY ORAL 06/17/18 09:00 07/17/18 08:59 06/17/18 09:03 Bumetanide (Bumex) 1 mg DAILY IV 06/18/18 09:00 07/18/18 08:59 Cetirizine HCl (ZyrTEC) 10 mg BEDTIME PRN ORAL Itching 06/17/18 00:00 07/17/18 00:00 06/17/18 05:58 Dextrose (Dextrose 50%) STAT PRN IV Hypoglycemia 06/16/18 12:30 07/16/18 12:29 Dextrose (Dextrose 50%) 50 ml STAT PRN IV Hypoglycemia 06/16/18 16:00 07/16/18 15:59 Gabapentin (Neurontin) 400 mg DAILY ORAL 06/16/18 18:00 07/16/18 17:59 06/17/18 09:03 Heparin Sodium (Porcine) (Heparin 5000 units/ml) 5,000 units EVERY 12 HOURS SUBQ 06/16/18 21:00 07/16/18 20:59 06/17/18 21:56 Isosorbide Dinitrate (Isordil) 5 mg EVERY 12 HOURS ORAL 06/16/18 21:00 07/16/18 20:59 06/17/18 21:54 Metoprolol Succinate (Toprol XL) 25 mg DAILY ORAL 06/17/18 09:00 07/17/18 08:59 06/17/18 09:03 Ondansetron HCl (Zofran) 4 mg Q6H PRN IVP Nausea & Vomiting 06/16/18 13:30 07/16/18 13:29 Oxycodone HCl (Roxicodone) 30 mg Q8H PRN ORAL For Pain 06/16/18 13:30 06/23/18 13:29 06/17/18 15:07 Polyethylene Glycol (Miralax) 17 gm DAILYPRN PRN ORAL Constipation 06/16/18 13:30 07/16/18 13:29 Assessment/Plan Status: stable Assessment/Plan Anxiety d/o Ativan prn Lee Ann Sutherland MD Jun 17, 2018 23:28
[2018-06-18] VITALS: BP 127/65
[2018-06-18 04:00] VITALS: BP 144/68
[2018-06-18 07:30] LABS: ANION GAP 5 mmol/L (5-15); BLOOD UREA NITROGEN 47 mg/dL (7-18); CARBON DIOXIDE 26 MMOL/L (21-32); CHLORIDE 107 MMOL/L (98-107); POTASSIUM 4.7 MMOL/L (3.5-5.1); SODIUM 138 MMOL/L (136-145)
[2018-06-18 08:00] VITALS: BP 110/63
[2018-06-18] MEDS ORDERED: Bumetanide 0.25mg/ml 4ml IV SCH ×2 (09:00→18:00)
[2018-06-18] MEDS: Metoprolol Succinate XL 25mg tab ORAL SCH (09:11)
[2018-06-18] MEDS: Allopurinol 100mg Tab ORAL SCH (09:11)
[2018-06-18] MEDS: Heparin 5000 units/ml inj SUBQ SCH ×2 (09:12→20:57)
--- NOTE | 2018-06-18 09:39 | Cardiology Progress Note ---
Assessment/Plan Status: stable Assessment/Plan Assessment: 1. Hypertension. 2. Diabetes type 2. 3. Asthma. 4. Congestive heart failure. 5. Cardiomyopathy. 6. Osteoarthritis. 7. Cerebrovascular disease, status post cerebral vascular accident x3, last being in 2017. 8. Chronic renal failure. 9. History of superficial deep venous thrombosis of the bilateral lower extremities. Plan: LE ultrasound to evaluate DVT --> Negative Aspirin Statin Glucose control Echocardiogram reviewed - diastolic heart disease - continue diuresis, low salt cardiac diet Monitor BP renal ultrasound, urine electrolytes Continue IV bumex - > transition to PO over weekend at discharge Subjective Cardiovascular: Reports: no symptoms Respiratory: Reports: no symptoms Gastrointestinal/Abdominal: Reports: no symptoms Genitourinary: Reports: no symptoms Subjective No acute events, vitals stable. LE US negative for DVT. Echo with preserved LV function. Making good diuresis. LE edema improved Objective Last 24 Hour Vital Signs Date Time Temp Pulse Resp B/P (MAP) Pulse Ox O2 Delivery O2 Flow Rate FiO2 06/18/18 09:24 110/63 06/18/18 09:11 78 110/63 06/18/18 08:00 98.6 78 18 110/63 (79) 95 98.6 06/18/18 04:00 97.9 65 18 144/68 (93) 94 97.9 06/18/18 04:00 71 06/18/18 00:00 74 06/18/18 00:00 98.2 77 17 127/65 (85) 95 98.2 06/17/18 21:54 137/72 06/17/18 21:00 Room Air 06/17/18 20:00 97.9 68 18 137/72 (93) 95 97.9 06/17/18 20:00 78 06/17/18 19:00 69 16 Room Air 06/17/18 19:00 Room Air 06/17/18 19:00 97 Room Air 06/17/18 16:06 63 06/17/18 16:00 97.1 83 16 130/72 (91) 95 97.1 06/17/18 12:00 97.9 83 16 131/69 (89) 95 97.9 06/17/18 12:00 79 06/17/18 11:33 96 Room Air 06/17/18 11:33 Room Air 06/17/18 11:33 79 18 Room Air General Appearance: no apparent distress, alert EENT: PERRL/EOMI, normal ENT inspection Neck: non-tender, normal alignment, supple Rhythm: NSR Cardiovascular: normal peripheral pulses, normal rate Respiratory/Chest: chest wall non-tender, lungs clear Abdomen: normal bowel sounds, non tender Extremities: normal range of motion, non-tender 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, abnormal gait Intake and Output 06/17/18 06/18/18 19:00 07:00 Intake Total 370 ml Output Total 800 ml 500 ml Balance -430 ml -500 ml Intake Oral 370 ml Output Urine Total 800 ml 500 ml # Voids 2 Laboratory Tests Test 06/18/18 07:05 Sodium Level 138 MMOL/L (136-145) Potassium Level 4.7 MMOL/L (3.5-5.1) Chloride Level 107 MMOL/L (98-107) Carbon Dioxide Level 26 MMOL/L (21-32) Anion Gap 5 mmol/L (5-15) Blood Urea Nitrogen 47 mg/dL (7-18) H Creatinine 3.0 MG/DL (0.55-1.30) H Estimat Glomerular Filtration Rate mL/min (>60) Glucose Level 62 MG/DL (74-106) L Calcium Level 9.0 MG/DL (8.5-10.1) Calcium (Send out) Pending Troponin I 0.006 ng/mL (0.000-0.056) Parathyroid Hormone (Intact) Pending Microbiology Date/Time Source Procedure Growth Status 06/16/18 16:00 Nasal Nares MRSA Culture - Final NO METHICILLIN RESISTANT STAPH AUREUS... Complete 06/16/18 16:00 Rectum VRE Culture - Final NO VANCOMYCIN RESISTANT ENTEROCOCCUS ... Complete 06/16/18 16:00 Rectum - Final NO CARBAPENEM-RESISTANT ENTEROBACTERI... Complete Vincent Hernandez M.D. Jun 18, 2018 09:39
--- NOTE | 2018-06-18 10:14 | Pulmonology Progress Note ---
Assessment/Plan Problems: (1) Acute on chronic renal failure (2) Asthma (3) HTN (hypertension) (4) GERD (gastroesophageal reflux disease) (5) Gout (6) DM (diabetes mellitus) Assessment/Plan diuretics check electrolytes titrate fio2 respiratory treatment prn check intake /output check renal US f/u by renal and cardiology Subjective ROS Limited/Unobtainable: No Constitutional: Reports: no symptoms HEENT: Repors: no symptoms Allergies: Coded Allergies: DIAZEPAM (Verified Allergy, Unknown, 10/07/11) HYDROCODONE (Verified Allergy, Unknown, 07/07/10) MINOXIDIL (Verified Allergy, Unknown, 07/07/10) NAME ALERT (Verified Adverse Reaction, Unknown, 07/13/08) Objective Last 24 Hour Vital Signs Date Time Temp Pulse Resp B/P (MAP) Pulse Ox O2 Delivery O2 Flow Rate FiO2 06/18/18 09:44 Room Air 21 06/18/18 09:44 71 16 Room Air 21 06/18/18 09:44 95 Room Air 21 06/18/18 09:24 110/63 06/18/18 09:11 78 110/63 06/18/18 08:00 98.6 78 18 110/63 (79) 95 98.6 06/18/18 04:00 97.9 65 18 144/68 (93) 94 97.9 06/18/18 04:00 71 06/18/18 00:00 74 06/18/18 00:00 98.2 77 17 127/65 (85) 95 98.2 06/17/18 21:54 137/72 06/17/18 21:00 Room Air 06/17/18 20:00 97.9 68 18 137/72 (93) 95 97.9 06/17/18 20:00 78 06/17/18 19:00 69 16 Room Air 06/17/18 19:00 Room Air 06/17/18 19:00 97 Room Air 06/17/18 16:06 63 06/17/18 16:00 97.1 83 16 130/72 (91) 95 97.1 06/17/18 12:00 97.9 83 16 131/69 (89) 95 97.9 06/17/18 12:00 79 06/17/18 11:33 96 Room Air 06/17/18 11:33 Room Air 06/17/18 11:33 79 18 Room Air Intake and Output 06/17/18 06/18/18 19:00 07:00 Intake Total 370 ml Output Total 800 ml 500 ml Balance -430 ml -500 ml Intake Oral 370 ml Output Urine Total 800 ml 500 ml # Voids 2 Objective General Appearance: WD/WN HEENT: normocephalic Respiratory/Chest: chest wall non-tender, lungs clear Cardiovascular: normal peripheral pulses, normal rate Abdomen: normal bowel sounds, soft, non tender Extremities: no cyanosis, massive edema Microbiology Date/Time Source Procedure Growth Status 06/16/18 16:00 Nasal Nares MRSA Culture - Final NO METHICILLIN RESISTANT STAPH AUREUS... Complete 06/16/18 16:00 Rectum VRE Culture - Final NO VANCOMYCIN RESISTANT ENTEROCOCCUS ... Complete 06/16/18 16:00 Rectum - Final NO CARBAPENEM-RESISTANT ENTEROBACTERI... Complete Laboratory Tests 06/18/18 07:05: Sodium Level 138, Potassium Level 4.7, Chloride Level 107, Carbon Dioxide Level 26, Anion Gap 5, Blood Urea Nitrogen 47H, Creatinine 3.0H, Estimat Glomerular Filtration Rate , Glucose Level 62L, Calcium Level 9.0, Calcium (Send out) [ Pending], Troponin I 0.006, Parathyroid Hormone (Intact) [Pending] Current Medications Medications (Trade) Dose Ordered Sig/Liss Route PRN Reason Start Time Stop Time Status Last Admin Dose Admin Acetaminophen (Tylenol) 650 mg Q4H PRN ORAL Fever 06/16/18 13:30 07/16/18 13:29 Albuterol/ Ipratropium (Albuterol/ Ipratropium) 3 ml Q4H PRN HHN Shortness of Breath 06/16/18 13:30 06/21/18 13:29 Allopurinol (Zyloprim) 100 mg DAILY ORAL 06/17/18 09:00 07/17/18 08:59 06/18/18 09:11 Bumetanide (Bumex) 1 mg BID IVP 06/18/18 18:00 07/18/18 17:59 UNV Bumetanide (Bumex) 1 mg DAILY IV 06/18/18 09:00 07/18/18 08:59 06/18/18 09:11 Cetirizine HCl (ZyrTEC) 10 mg BEDTIME PRN ORAL Itching 06/17/18 00:00 07/17/18 00:00 06/17/18 05:58 Dextrose (Dextrose 50%) STAT PRN IV Hypoglycemia 06/16/18 12:30 07/16/18 12:29 Dextrose (Dextrose 50%) 50 ml STAT PRN IV Hypoglycemia 06/16/18 16:00 07/16/18 15:59 Gabapentin (Neurontin) 400 mg DAILY ORAL 06/16/18 18:00 07/16/18 17:59 06/18/18 09:11 Heparin Sodium (Porcine) (Heparin 5000 units/ml) 5,000 units EVERY 12 HOURS SUBQ 06/16/18 21:00 07/16/18 20:59 06/18/18 09:12 Isosorbide Dinitrate (Isordil) 5 mg EVERY 12 HOURS ORAL 06/16/18 21:00 07/16/18 20:59 06/18/18 09:24 Metoprolol Succinate (Toprol XL) 25 mg DAILY ORAL 06/17/18 09:00 07/17/18 08:59 06/18/18 09:11 Ondansetron HCl (Zofran) 4 mg Q6H PRN IVP Nausea & Vomiting 06/16/18 13:30 07/16/18 13:29 Oxycodone HCl (Roxicodone) 30 mg Q8H PRN ORAL For Pain 06/16/18 13:30 06/23/18 13:29 06/17/18 15:07 Polyethylene Glycol (Miralax) 17 gm DAILYPRN PRN ORAL Constipation 06/16/18 13:30 07/16/18 13:29 Quetiapine Fumarate (SEROquel) 12.5 mg EVERY 4 HOURS PRN ORAL agitation 06/17/18 23:30 07/17/18 23:29 Roberta Durán MD Jun 18, 2018 10:14
--- NOTE | 2018-06-18 10:35 | Nephrology Progress Note ---
Assessment/Plan Problem List: (1) Acute on chronic renal failure Assessment: worse (2) Edema Assessment: better Plan cont diuretics for now check PTH follow BMP Subjective Subjective feels ok Objective Objective Last 24 Hour Vital Signs Date Time Temp Pulse Resp B/P (MAP) Pulse Ox O2 Delivery O2 Flow Rate FiO2 06/18/18 09:44 Room Air 21 06/18/18 09:44 71 16 Room Air 21 06/18/18 09:44 95 Room Air 21 06/18/18 09:24 110/63 06/18/18 09:11 78 110/63 06/18/18 08:00 98.6 78 18 110/63 (79) 95 98.6 06/18/18 04:00 97.9 65 18 144/68 (93) 94 97.9 06/18/18 04:00 71 06/18/18 00:00 74 06/18/18 00:00 98.2 77 17 127/65 (85) 95 98.2 06/17/18 21:54 137/72 06/17/18 21:00 Room Air 06/17/18 20:00 97.9 68 18 137/72 (93) 95 97.9 06/17/18 20:00 78 06/17/18 19:00 69 16 Room Air 06/17/18 19:00 Room Air 06/17/18 19:00 97 Room Air 06/17/18 16:06 63 06/17/18 16:00 97.1 83 16 130/72 (91) 95 97.1 06/17/18 12:00 97.9 83 16 131/69 (89) 95 97.9 06/17/18 12:00 79 06/17/18 11:33 96 Room Air 06/17/18 11:33 Room Air 06/17/18 11:33 79 18 Room Air Intake and Output 06/17/18 06/18/18 19:00 07:00 Intake Total 370 ml Output Total 800 ml 500 ml Balance -430 ml -500 ml Intake Oral 370 ml Output Urine Total 800 ml 500 ml # Voids 2 Laboratory Tests 06/18/18 07:05: Sodium Level 138, Potassium Level 4.7, Chloride Level 107, Carbon Dioxide Level 26, Anion Gap 5, Blood Urea Nitrogen 47H, Creatinine 3.0H, Estimat Glomerular Filtration Rate , Glucose Level 62L, Calcium Level 9.0, Calcium (Send out) [ Pending], Troponin I 0.006, Parathyroid Hormone (Intact) [Pending] Height (Feet): 5 Height (Inches): 2.00 Weight (Pounds): 180 Cardiovascular: normal rate Respiratory/Chest: lungs clear Extremities: severe edema Amor Flores MD Jun 18, 2018 10:35
[2018-06-18] MEDS ORDERED: HydrOXYzine tab 25mg tab ORAL PRN ×2 (11:15→20:45)
--- NOTE | 2018-06-18 11:26 | Internal Med Progress Note ---
Subjective Date of Service: Jun 18, 2018 Physician Name AlisaAníbal Attending Physician Christopher Villanueva MD Current Medications Medications (Trade) Dose Ordered Sig/Liss Route PRN Reason Start Time Stop Time Status Last Admin Dose Admin Acetaminophen (Tylenol) 650 mg Q4H PRN ORAL Fever 06/16/18 13:30 07/16/18 13:29 Albuterol/ Ipratropium (Albuterol/ Ipratropium) 3 ml Q4H PRN HHN Shortness of Breath 06/16/18 13:30 06/21/18 13:29 Allopurinol (Zyloprim) 100 mg DAILY ORAL 06/17/18 09:00 07/17/18 08:59 06/18/18 09:11 Bumetanide (Bumex) 1 mg BID IV 06/18/18 18:00 07/18/18 17:59 Cetirizine HCl (ZyrTEC) 10 mg BEDTIME PRN ORAL Itching 06/17/18 00:00 07/17/18 00:00 06/17/18 05:58 Dextrose (Dextrose 50%) STAT PRN IV Hypoglycemia 06/16/18 12:30 07/16/18 12:29 Dextrose (Dextrose 50%) 50 ml STAT PRN IV Hypoglycemia 06/16/18 16:00 07/16/18 15:59 Gabapentin (Neurontin) 400 mg DAILY ORAL 06/16/18 18:00 07/16/18 17:59 06/18/18 09:11 Heparin Sodium (Porcine) (Heparin 5000 units/ml) 5,000 units EVERY 12 HOURS SUBQ 06/16/18 21:00 07/16/18 20:59 06/18/18 09:12 Isosorbide Dinitrate (Isordil) 5 mg EVERY 12 HOURS ORAL 06/16/18 21:00 07/16/18 20:59 06/18/18 09:24 Metoprolol Succinate (Toprol XL) 25 mg DAILY ORAL 06/17/18 09:00 07/17/18 08:59 06/18/18 09:11 Ondansetron HCl (Zofran) 4 mg Q6H PRN IVP Nausea & Vomiting 06/16/18 13:30 07/16/18 13:29 Oxycodone HCl (Roxicodone) 30 mg Q8H PRN ORAL For Pain 06/16/18 13:30 06/23/18 13:29 06/17/18 15:07 Polyethylene Glycol (Miralax) 17 gm DAILYPRN PRN ORAL Constipation 06/16/18 13:30 07/16/18 13:29 Quetiapine Fumarate (SEROquel) 12.5 mg EVERY 4 HOURS PRN ORAL agitation 06/17/18 23:30 07/17/18 23:29 Allergies: Coded Allergies: DIAZEPAM (Verified Allergy, Unknown, 10/07/11) HYDROCODONE (Verified Allergy, Unknown, 07/07/10) MINOXIDIL (Verified Allergy, Unknown, 07/07/10) NAME ALERT (Verified Adverse Reaction, Unknown, 07/13/08) ROS Limited/Unobtainable: No Constitutional: Reports: no symptoms HEENT: Reports: no symptoms Cardiovascular: Reports: no symptoms Respiratory: Reports: no symptoms Gastrointestinal/Abdominal: Reports: no symptoms Genitourinary: Reports: no symptoms Neurologic/Psychiatric: Reports: no symptoms Subjective 82 YO F admitted with bilateral leg swelling. Now CHF. Cover for Int Med-Dr Villanueva Objective Last Vital Signs Date Time Temp Pulse Resp B/P (MAP) Pulse Ox O2 Delivery O2 Flow Rate FiO2 06/18/18 09:44 Room Air 21 06/18/18 09:44 71 16 06/18/18 09:44 95 06/18/18 09:24 110/63 06/18/18 08:00 98.6 98.6 General Appearance: WD/WN, no apparent distress, alert, mild distress EENT: PERRL/EOMI, normal ENT inspection, TMs normal Neck: non-tender, normal alignment, supple, normal inspection Cardiovascular: normal peripheral pulses, normal rate, regular rhythm, no gallop/murmur, no JVD Respiratory/Chest: chest wall non-tender, lungs clear, normal breath sounds, no respiratory distress, no accessory muscle use Abdomen: normal bowel sounds, non tender, soft, no organomegaly, no mass Extremities: normal range of motion Edema: mild edema 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, no motor/sensory deficits Skin: normal pigmentation, warm/dry Laboratory Tests Test 06/18/18 07:05 Sodium Level 138 MMOL/L (136-145) Potassium Level 4.7 MMOL/L (3.5-5.1) Chloride Level 107 MMOL/L (98-107) Carbon Dioxide Level 26 MMOL/L (21-32) Anion Gap 5 mmol/L (5-15) Blood Urea Nitrogen 47 mg/dL (7-18) H Creatinine 3.0 MG/DL (0.55-1.30) H Estimat Glomerular Filtration Rate mL/min (>60) Glucose Level 62 MG/DL (74-106) L Calcium Level 9.0 MG/DL (8.5-10.1) Calcium (Send out) Pending Troponin I 0.006 ng/mL (0.000-0.056) Parathyroid Hormone (Intact) Pending Microbiology Date/Time Source Procedure Growth Status 06/16/18 16:00 Nasal Nares MRSA Culture - Final NO METHICILLIN RESISTANT STAPH AUREUS... Complete 06/16/18 16:00 Rectum VRE Culture - Final NO VANCOMYCIN RESISTANT ENTEROCOCCUS ... Complete 06/16/18 16:00 Rectum - Final NO CARBAPENEM-RESISTANT ENTEROBACTERI... Complete Intake and Output 06/17/18 06/18/18 19:00 07:00 Intake Total 370 ml Output Total 800 ml 500 ml Balance -430 ml -500 ml Intake Oral 370 ml Output Urine Total 800 ml 500 ml # Voids 2 Assessment/Plan Problem List: (1) Acute on chronic renal failure Assessment & Plan: Diuretic induced. See nephrology note. D/C lasix; start bumex (2) Edema (3) CHF (congestive heart failure) Assessment & Plan: BNP>1000. See cardiology note. (4) HTN (hypertension) Assessment & Plan: Continue toprol (5) DM (diabetes mellitus) (6) Cardiomyopathy (7) Cerebral vascular disease Status: progressing Aníbal Cuellar MD Jun 18, 2018 11:26
[2018-06-18 12:00] VITALS: BP 128/72
[2018-06-18 16:00] VITALS: BP 103/60
[2018-06-18] MEDS: oxyCODONE 15mg IR tab ORAL PRN (18:29)
[2018-06-18 20:30] VITALS: BP 125/67
[2018-06-18] MEDS ORDERED: oxyCODONE 15mg IR tab ORAL PRN (20:45)
[2018-06-18] MEDS ORDERED: Miralax 17gm pkt ORAL PRN (20:45)
[2018-06-18] MEDS ORDERED: Albuterol/Ipratropium 3ml neb HHN PRN (20:45)
[2018-06-19] VITALS (7 sets, daily range): BP systolic 128–166; BP diastolic 62–89
[2018-06-19 07:00] LABS: ANION GAP 8 mmol/L (5-15); BLOOD UREA NITROGEN 48 mg/dL (7-18); CALCIUM 9.3 MG/DL (8.5-10.1); CARBON DIOXIDE 27 MMOL/L (21-32); CHLORIDE 106 MMOL/L (98-107); POTASSIUM 4.4 MMOL/L (3.5-5.1); SODIUM 141 MMOL/L (136-145)
[2018-06-19 07:06] LABS: BASOPHILS % (AUTO) 0.8 % (0.0-2.0); HEMATOCRIT 32.6 % (37.0-47.0); HEMOGLOBIN 10.3 G/DL (12.0-16.0); LYMPHOCYTES % (AUTO) 33.1 % (20.0-45.0); MEAN CORPUSCULAR VOLUME 94 FL (80-99); MONOCYTES % (AUTO) 12.5 % (1.0-10.0); NEUTROPHILS % (AUTO) 50.7 % (45.0-75.0); PLATELET COUNT 145 K/UL (150-450); RED BLOOD COUNT 3.47 M/UL (4.20-5.40); WHITE BLOOD COUNT 4.3 K/UL (4.8-10.8)
[2018-06-19] MEDS: Heparin 5000 units/ml inj SUBQ SCH ×2 (08:52→21:21)
[2018-06-19] MEDS: Bumetanide 0.25mg/ml 4ml IV SCH ×2 (08:52→09:00)
[2018-06-19] MEDS ORDERED: Allopurinol 100mg Tab ORAL SCH (09:00)
[2018-06-19] MEDS ORDERED: Metoprolol Succinate XL 25mg tab ORAL SCH (09:00)
[2018-06-19] MEDS ORDERED: Bumetanide 1mg tab ORAL SCH (10:30)
--- NOTE | 2018-06-19 10:34 | Cardiology Progress Note ---
Assessment/Plan Status: stable Assessment/Plan Assessment: 1. Hypertension. 2. Diabetes type 2. 3. Asthma. 4. Congestive heart failure. 5. Cardiomyopathy. 6. Osteoarthritis. 7. Cerebrovascular disease, status post cerebral vascular accident x3, last being in 2017. 8. Chronic renal failure. 9. History of superficial deep venous thrombosis of the bilateral lower extremities. Plan: LE ultrasound to evaluate DVT --> Negative Aspirin Statin Glucose control Echocardiogram reviewed - diastolic heart disease - continue diuresis, low salt cardiac diet Monitor BP renal ultrasound, urine electrolytes Transition to PO bumex 1 mg PO daily Monitor I/O and creatinine Dispo planning Subjective Cardiovascular: Reports: no symptoms Respiratory: Reports: no symptoms Gastrointestinal/Abdominal: Reports: no symptoms Genitourinary: Reports: no symptoms Subjective No acute events, vitals stable. LE US negative for DVT. Echo with preserved LV function. Making good diuresis. LE edema improved Objective Last 24 Hour Vital Signs Date Time Temp Pulse Resp B/P (MAP) Pulse Ox O2 Delivery O2 Flow Rate FiO2 06/19/18 08:52 144/66 06/19/18 08:51 77 144/66 06/19/18 08:11 75 16 Room Air 21 06/19/18 08:00 98.2 77 20 144/66 (92) 94 98.2 06/19/18 04:00 98.2 75 18 128/62 (84) 92 98.2 06/19/18 00:00 98.4 76 18 133/65 (87) 95 98.4 06/18/18 21:00 Room Air 06/18/18 20:53 125/67 06/18/18 20:30 99.5 73 18 125/67 (86) 96 99.5 06/18/18 16:00 99.0 66 16 103/60 (74) 95 99.0 06/18/18 15:32 68 06/18/18 12:00 98.5 71 18 128/72 (90) 95 98.5 06/18/18 12:00 65 General Appearance: no apparent distress EENT: PERRL/EOMI, normal ENT inspection, pharynx normal Neck: non-tender, normal alignment Rhythm: NSR Cardiovascular: normal peripheral pulses, normal rate, regular rhythm Respiratory/Chest: chest wall non-tender, lungs clear Abdomen: normal bowel sounds, non tender Extremities: normal range of motion 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, no motor/sensory deficits Intake and Output 06/18/18 06/19/18 19:00 07:00 Intake Total 360 ml Output Total 900 ml 650 ml Balance -540 ml -650 ml Intake Oral 360 ml Output Urine Total 900 ml 650 ml Laboratory Tests Test 06/19/18 05:10 White Blood Count 4.3 K/UL (4.8-10.8) L Red Blood Count 3.47 M/UL (4.20-5.40) L Hemoglobin 10.3 G/DL (12.0-16.0) L Hematocrit 32.6 % (37.0-47.0) L Mean Corpuscular Volume 94 FL (80-99) Mean Corpuscular Hemoglobin 29.7 PG (27.0-31.0) Mean Corpuscular Hemoglobin Concent 31.6 G/DL (32.0-36.0) L Red Cell Distribution Width 14.0 % (11.6-14.8) Platelet Count 145 K/UL (150-450) L Mean Platelet Volume 5.9 FL (6.5-10.1) L Neutrophils (%) (Auto) 50.7 % (45.0-75.0) Lymphocytes (%) (Auto) 33.1 % (20.0-45.0) Monocytes (%) (Auto) 12.5 % (1.0-10.0) H Eosinophils (%) (Auto) 3.0 % (0.0-3.0) Basophils (%) (Auto) 0.8 % (0.0-2.0) Sodium Level 141 MMOL/L (136-145) Potassium Level 4.4 MMOL/L (3.5-5.1) Chloride Level 106 MMOL/L (98-107) Carbon Dioxide Level 27 MMOL/L (21-32) Anion Gap 8 mmol/L (5-15) Blood Urea Nitrogen 48 mg/dL (7-18) H Creatinine 3.0 MG/DL (0.55-1.30) H Estimat Glomerular Filtration Rate mL/min (>60) Glucose Level 89 MG/DL (74-106) Calcium Level 9.3 MG/DL (8.5-10.1) Pro-B-Type Natriuretic Peptide 756 pg/mL (0-125) H Microbiology Date/Time Source Procedure Growth Status 06/16/18 16:00 Nasal Nares MRSA Culture - Final NO METHICILLIN RESISTANT STAPH AUREUS... Complete 06/16/18 16:00 Rectum VRE Culture - Final NO VANCOMYCIN RESISTANT ENTEROCOCCUS ... Complete 06/16/18 16:00 Rectum - Final NO CARBAPENEM-RESISTANT ENTEROBACTERI... Complete Vincent Hernandez M.D. Jun 19, 2018 10:34
--- NOTE | 2018-06-19 11:41 | Nephrology Progress Note ---
Assessment/Plan Problem List: (1) Acute on chronic renal failure Assessment: stable (2) Edema Assessment: better Plan on po Bumex check PTH follow BMP Subjective Subjective feels ok Objective Objective Last 24 Hour Vital Signs Date Time Temp Pulse Resp B/P (MAP) Pulse Ox O2 Delivery O2 Flow Rate FiO2 06/19/18 08:52 144/66 06/19/18 08:51 77 144/66 06/19/18 08:11 75 16 Room Air 21 06/19/18 08:00 98.2 77 20 144/66 (92) 94 98.2 06/19/18 04:00 98.2 75 18 128/62 (84) 92 98.2 06/19/18 00:00 98.4 76 18 133/65 (87) 95 98.4 06/18/18 21:00 Room Air 06/18/18 20:53 125/67 06/18/18 20:30 99.5 73 18 125/67 (86) 96 99.5 06/18/18 16:00 99.0 66 16 103/60 (74) 95 99.0 06/18/18 15:32 68 06/18/18 12:00 98.5 71 18 128/72 (90) 95 98.5 06/18/18 12:00 65 Intake and Output 06/18/18 06/19/18 19:00 07:00 Intake Total 360 ml Output Total 900 ml 650 ml Balance -540 ml -650 ml Intake Oral 360 ml Output Urine Total 900 ml 650 ml Laboratory Tests 06/19/18 05:10: White Blood Count 4.3L, Red Blood Count 3.47L, Hemoglobin 10.3L, Hematocrit 32.6L, Mean Corpuscular Volume 94, Mean Corpuscular Hemoglobin 29.7, Mean Corpuscular Hemoglobin Concent 31.6L, Red Cell Distribution Width 14.0, Platelet Count 145L, Mean Platelet Volume 5.9L, Neutrophils (%) (Auto) 50.7, Lymphocytes (%) (Auto) 33.1, Monocytes (%) (Auto) 12.5H, Eosinophils (%) (Auto) 3.0, Basophils (%) (Auto) 0.8, Sodium Level 141, Potassium Level 4.4, Chloride Level 106, Carbon Dioxide Level 27, Anion Gap 8, Blood Urea Nitrogen 48H, Creatinine 3.0H, Estimat Glomerular Filtration Rate , Glucose Level 89, Calcium Level 9.3, Pro-B-Type Natriuretic Peptide 756H Height (Feet): 5 Height (Inches): 2.00 Weight (Pounds): 180 Cardiovascular: normal rate Respiratory/Chest: lungs clear Extremities: other - less edema Amor Flores MD Jun 19, 2018 11:41
--- NOTE | 2018-06-19 14:11 | Pulmonology Progress Note ---
Assessment/Plan Problems: (1) Acute on chronic renal failure (2) Asthma (3) HTN (hypertension) (4) GERD (gastroesophageal reflux disease) (5) Gout (6) DM (diabetes mellitus) Assessment/Plan diuretics diuresing well, on BUMEX check electrolytes titrate fio2 respiratory treatment prn check intake /output check renal US f/u by renal and cardiology Subjective ROS Limited/Unobtainable: No Constitutional: Reports: no symptoms HEENT: Repors: no symptoms Cardiovascular: Reports: no symptoms Allergies: Coded Allergies: DIAZEPAM (Verified Allergy, Unknown, 10/07/11) HYDROCODONE (Verified Allergy, Unknown, 07/07/10) MINOXIDIL (Verified Allergy, Unknown, 07/07/10) NAME ALERT (Verified Adverse Reaction, Unknown, 07/13/08) Objective Last 24 Hour Vital Signs Date Time Temp Pulse Resp B/P (MAP) Pulse Ox O2 Delivery O2 Flow Rate FiO2 06/19/18 12:00 98.2 69 20 154/89 (110) 96 98.2 06/19/18 09:00 Room Air 06/19/18 08:52 144/66 06/19/18 08:51 77 144/66 06/19/18 08:11 75 16 Room Air 21 06/19/18 08:00 98.2 77 20 144/66 (92) 94 98.2 06/19/18 04:00 98.2 75 18 128/62 (84) 92 98.2 06/19/18 00:00 98.4 76 18 133/65 (87) 95 98.4 06/18/18 21:00 Room Air 06/18/18 20:53 125/67 06/18/18 20:30 99.5 73 18 125/67 (86) 96 99.5 06/18/18 16:00 99.0 66 16 103/60 (74) 95 99.0 06/18/18 15:32 68 Intake and Output 06/18/18 06/19/18 19:00 07:00 Intake Total 360 ml Output Total 900 ml 650 ml Balance -540 ml -650 ml Intake Oral 360 ml Output Urine Total 900 ml 650 ml Objective General Appearance: WD/WN HEENT: normocephalic Respiratory/Chest: chest wall non-tender, lungs clear Cardiovascular: normal peripheral pulses, normal rate Abdomen: normal bowel sounds, soft, non tender Extremities: no cyanosis, massive edema Microbiology Date/Time Source Procedure Growth Status 06/16/18 16:00 Nasal Nares MRSA Culture - Final NO METHICILLIN RESISTANT STAPH AUREUS... Complete 06/16/18 16:00 Rectum VRE Culture - Final NO VANCOMYCIN RESISTANT ENTEROCOCCUS ... Complete 06/16/18 16:00 Rectum - Final NO CARBAPENEM-RESISTANT ENTEROBACTERI... Complete Laboratory Tests 06/19/18 05:10: White Blood Count 4.3L, Red Blood Count 3.47L, Hemoglobin 10.3L, Hematocrit 32.6L, Mean Corpuscular Volume 94, Mean Corpuscular Hemoglobin 29.7, Mean Corpuscular Hemoglobin Concent 31.6L, Red Cell Distribution Width 14.0, Platelet Count 145L, Mean Platelet Volume 5.9L, Neutrophils (%) (Auto) 50.7, Lymphocytes (%) (Auto) 33.1, Monocytes (%) (Auto) 12.5H, Eosinophils (%) (Auto) 3.0, Basophils (%) (Auto) 0.8, Sodium Level 141, Potassium Level 4.4, Chloride Level 106, Carbon Dioxide Level 27, Anion Gap 8, Blood Urea Nitrogen 48H, Creatinine 3.0H, Estimat Glomerular Filtration Rate , Glucose Level 89, Calcium Level 9.3, Pro-B-Type Natriuretic Peptide 756H Current Medications Medications (Trade) Dose Ordered Sig/Liss Route PRN Reason Start Time Stop Time Status Last Admin Dose Admin Acetaminophen (Tylenol) 650 mg Q4H PRN ORAL Fever 06/18/18 20:45 07/16/18 20:44 Albuterol/ Ipratropium (Albuterol/ Ipratropium) 3 ml Q4H PRN HHN Shortness of Breath 06/18/18 20:45 06/21/18 20:44 Allopurinol (Zyloprim) 100 mg DAILY ORAL 06/19/18 09:00 07/17/18 08:59 06/19/18 08:52 Bumetanide (Bumex) 1 mg BID ORAL 06/19/18 10:30 07/19/18 10:29 06/19/18 12:51 Dextrose (Dextrose 50%) STAT PRN IV Hypoglycemia 06/18/18 20:45 07/18/18 20:44 Dextrose (Dextrose 50%) 50 ml STAT PRN IV Hypoglycemia 06/18/18 20:45 07/18/18 20:44 Gabapentin (Neurontin) 400 mg DAILY ORAL 06/19/18 09:00 07/16/18 17:59 Heparin Sodium (Porcine) (Heparin 5000 units/ml) 5,000 units EVERY 12 HOURS SUBQ 06/18/18 21:00 07/16/18 20:59 Hydroxyzine HCl (Atarax) 25 mg Q6H PRN ORAL Itching 06/18/18 20:45 07/18/18 20:44 Isosorbide Dinitrate (Isordil) 5 mg EVERY 12 HOURS ORAL 06/18/18 21:00 07/16/18 20:59 06/19/18 08:52 Metoprolol Succinate (Toprol XL) 25 mg DAILY ORAL 06/19/18 09:00 07/17/18 08:59 06/19/18 08:51 Ondansetron HCl (Zofran) 4 mg Q6H PRN IVP Nausea & Vomiting 06/18/18 20:45 07/18/18 20:44 Oxycodone HCl (Roxicodone) 30 mg Q8H PRN ORAL For Pain 06/18/18 20:45 06/23/18 20:44 Polyethylene Glycol (Miralax) 17 gm DAILYPRN PRN ORAL Constipation 06/18/18 20:45 07/18/18 20:44 Quetiapine Fumarate (SEROquel) 12.5 mg Q4H PRN ORAL agitation 06/18/18 21:00 07/18/18 20:59 Roberta Durán MD Jun 19, 2018 14:11
[2018-06-19] MEDS ORDERED: Lidocaine 1% Plain 30 ml INJ PRN ×2 (15:45→18:00)
[2018-06-19] MEDS ORDERED: Heparin 2000 units/Ns 1000ml INJ PRN ×2 (15:45→18:00)
--- NOTE | 2018-06-19 15:48 | Internal Med Progress Note ---
Subjective Date of Service: Jun 19, 2018 Physician Name Cuellar,Aníbal Attending Physician Christopher Villanueva MD Current Medications Medications (Trade) Dose Ordered Sig/Liss Route PRN Reason Start Time Stop Time Status Last Admin Dose Admin Acetaminophen (Tylenol) 650 mg Q4H PRN ORAL Fever 06/18/18 20:45 07/16/18 20:44 Albuterol/ Ipratropium (Albuterol/ Ipratropium) 3 ml Q4H PRN HHN Shortness of Breath 06/18/18 20:45 06/21/18 20:44 Allopurinol (Zyloprim) 100 mg DAILY ORAL 06/19/18 09:00 07/17/18 08:59 06/19/18 08:52 Bumetanide (Bumex) 1 mg BID ORAL 06/19/18 10:30 07/19/18 10:29 06/19/18 12:51 Dextrose (Dextrose 50%) STAT PRN IV Hypoglycemia 06/18/18 20:45 07/18/18 20:44 Dextrose (Dextrose 50%) 50 ml STAT PRN IV Hypoglycemia 06/18/18 20:45 07/18/18 20:44 Gabapentin (Neurontin) 400 mg DAILY ORAL 06/19/18 09:00 07/16/18 17:59 Heparin Sodium (Porcine) (Heparin 5000 units/ml) 5,000 units EVERY 12 HOURS SUBQ 06/18/18 21:00 07/16/18 20:59 Hydroxyzine HCl (Atarax) 25 mg Q6H PRN ORAL Itching 06/18/18 20:45 07/18/18 20:44 Isosorbide Dinitrate (Isordil) 5 mg EVERY 12 HOURS ORAL 06/18/18 21:00 07/16/18 20:59 06/19/18 08:52 Metoprolol Succinate (Toprol XL) 25 mg DAILY ORAL 06/19/18 09:00 07/17/18 08:59 06/19/18 08:51 Ondansetron HCl (Zofran) 4 mg Q6H PRN IVP Nausea & Vomiting 06/18/18 20:45 07/18/18 20:44 Oxycodone HCl (Roxicodone) 30 mg Q8H PRN ORAL For Pain 06/18/18 20:45 06/23/18 20:44 Polyethylene Glycol (Miralax) 17 gm DAILYPRN PRN ORAL Constipation 06/18/18 20:45 07/18/18 20:44 Quetiapine Fumarate (SEROquel) 12.5 mg Q4H PRN ORAL agitation 06/18/18 21:00 07/18/18 20:59 Allergies: Coded Allergies: DIAZEPAM (Verified Allergy, Unknown, 10/07/11) HYDROCODONE (Verified Allergy, Unknown, 07/07/10) MINOXIDIL (Verified Allergy, Unknown, 07/07/10) NAME ALERT (Verified Adverse Reaction, Unknown, 07/13/08) ROS Limited/Unobtainable: No Constitutional: Reports: chills, fever HEENT: Reports: no symptoms Cardiovascular: Reports: no symptoms Respiratory: Reports: no symptoms Gastrointestinal/Abdominal: Reports: nausea, vomiting Genitourinary: Reports: no symptoms Neurologic/Psychiatric: Reports: no symptoms Subjective 82 YO F admitted with bilateral leg swelling. Now CHF. Cover for Int Med-Dr Villanueva. Febrile to 102.6F and nausea/vomiting Objective Last Vital Signs Date Time Temp Pulse Resp B/P (MAP) Pulse Ox O2 Delivery O2 Flow Rate FiO2 06/19/18 12:00 98.2 69 20 154/89 (110) 96 98.2 06/19/18 09:00 Room Air 06/19/18 08:11 21 Laboratory Tests Test 06/19/18 05:10 White Blood Count 4.3 K/UL (4.8-10.8) L Red Blood Count 3.47 M/UL (4.20-5.40) L Hemoglobin 10.3 G/DL (12.0-16.0) L Hematocrit 32.6 % (37.0-47.0) L Mean Corpuscular Volume 94 FL (80-99) Mean Corpuscular Hemoglobin 29.7 PG (27.0-31.0) Mean Corpuscular Hemoglobin Concent 31.6 G/DL (32.0-36.0) L Red Cell Distribution Width 14.0 % (11.6-14.8) Platelet Count 145 K/UL (150-450) L Mean Platelet Volume 5.9 FL (6.5-10.1) L Neutrophils (%) (Auto) 50.7 % (45.0-75.0) Lymphocytes (%) (Auto) 33.1 % (20.0-45.0) Monocytes (%) (Auto) 12.5 % (1.0-10.0) H Eosinophils (%) (Auto) 3.0 % (0.0-3.0) Basophils (%) (Auto) 0.8 % (0.0-2.0) Sodium Level 141 MMOL/L (136-145) Potassium Level 4.4 MMOL/L (3.5-5.1) Chloride Level 106 MMOL/L (98-107) Carbon Dioxide Level 27 MMOL/L (21-32) Anion Gap 8 mmol/L (5-15) Blood Urea Nitrogen 48 mg/dL (7-18) H Creatinine 3.0 MG/DL (0.55-1.30) H Estimat Glomerular Filtration Rate mL/min (>60) Glucose Level 89 MG/DL (74-106) Calcium Level 9.3 MG/DL (8.5-10.1) Pro-B-Type Natriuretic Peptide 756 pg/mL (0-125) H Microbiology Date/Time Source Procedure Growth Status 06/16/18 16:00 Nasal Nares MRSA Culture - Final NO METHICILLIN RESISTANT STAPH AUREUS... Complete 06/16/18 16:00 Rectum VRE Culture - Final NO VANCOMYCIN RESISTANT ENTEROCOCCUS ... Complete 06/16/18 16:00 Rectum - Final NO CARBAPENEM-RESISTANT ENTEROBACTERI... Complete Intake and Output 06/18/18 06/19/18 19:00 07:00 Intake Total 360 ml Output Total 900 ml 650 ml Balance -540 ml -650 ml Intake Oral 360 ml Output Urine Total 900 ml 650 ml Objective General Appearance: WD/WN, no apparent distress, alert, mild distress EENT: PERRL/EOMI, normal ENT inspection, TMs normal Neck: non-tender, normal alignment, supple, normal inspection Cardiovascular: normal peripheral pulses, normal rate, regular rhythm, no gallop/murmur, no JVD Respiratory/Chest: chest wall non-tender, lungs clear, normal breath sounds, no respiratory distress, no accessory muscle use Abdomen: normal bowel sounds, non tender, soft, no organomegaly, no mass Extremities: normal range of motion Edema: mild edema Neurologic: brim rounder II-XII grossly normal, no motor/sensory deficits Skin: normal pigmentation, warm/dry Assessment/Plan Problem List: (1) Acute on chronic renal failure Assessment & Plan: Diuretic induced. See nephrology note. D/C lasix; start bumex (2) Edema (3) CHF (congestive heart failure) Assessment & Plan: BNP>1000. See cardiology note. (4) HTN (hypertension) Assessment & Plan: Continue toprol (5) DM (diabetes mellitus) (6) Cardiomyopathy (7) Cerebral vascular disease (8) Nausea & vomiting (9) Fever Assessment & Plan: Urine and blood cult. CXR Status: deteriorating Assessment/Plan Lost IV access; PICC line in am Aníbal Cuellar MD Jun 19, 2018 15:48
[2018-06-19] MEDS ORDERED: HydrOXYzine tab 25mg tab ORAL PRN (18:00)
[2018-06-19] MEDS ORDERED: oxyCODONE 15mg IR tab ORAL PRN (18:00)
[2018-06-19] MEDS ORDERED: Miralax 17gm pkt ORAL PRN (18:00)
[2018-06-19] MEDS ORDERED: Albuterol/Ipratropium 3ml neb HHN PRN (18:00)
[2018-06-19] MEDS: Bumetanide 1mg tab ORAL SCH ×2 (21:00→21:20)
[2018-06-20] VITALS: BP 121/62
[2018-06-20 04:00] VITALS: BP 123/82
[2018-06-20 07:39] LABS: BASOPHILS % (AUTO) 0.5 % (0.0-2.0); EOSINOPHILS % (AUTO) 0.2 % (0.0-3.0); HEMATOCRIT 36.3 % (37.0-47.0); HEMOGLOBIN 11.4 G/DL (12.0-16.0); LYMPHOCYTES % (AUTO) 11.3 % (20.0-45.0); MEAN CORPUSCULAR VOLUME 93 FL (80-99); MONOCYTES % (AUTO) 7.3 % (1.0-10.0); NEUTROPHILS % (AUTO) 80.7 % (45.0-75.0); PLATELET COUNT 139 K/UL (150-450); RED BLOOD COUNT 3.89 M/UL (4.20-5.40); RED CELL DISTRIBUTION WIDTH 14.1 % (11.6-14.8); WHITE BLOOD COUNT 8.6 K/UL (4.8-10.8)
[2018-06-20 07:53] LABS: ANION GAP 10 mmol/L (5-15); BLOOD UREA NITROGEN 47 mg/dL (7-18); CALCIUM 8.9 MG/DL (8.5-10.1); CARBON DIOXIDE 25 MMOL/L (21-32); CHLORIDE 105 MMOL/L (98-107); CREATININE 2.9 MG/DL (0.55-1.30); POTASSIUM 4.6 MMOL/L (3.5-5.1); SODIUM 140 MMOL/L (136-145)
[2018-06-20 08:00] VITALS: BP 129/59
[2018-06-20] MEDS ORDERED: Allopurinol 100mg Tab ORAL SCH (09:00)
[2018-06-20] MEDS ORDERED: Metoprolol Succinate XL 25mg tab ORAL SCH (09:00)
[2018-06-20] MEDS: Bumetanide 1mg tab ORAL SCH ×2 (09:00→20:17)
[2018-06-20] MEDS: Heparin 5000 units/ml inj SUBQ SCH ×2 (09:00→20:20)
--- NOTE | 2018-06-20 10:16 | Diagnostic Imaging Report ---
Indication: Cough, abnormal chest sounds Technique: One view of the chest Comparison: 06/16/2018 Findings: Again demonstrated is left perihilar atelectasis or scarring. There are small bilateral pleural effusions again demonstrated. The heart size is normal. Findings are unchanged Impression: Unchanged, over 4 days, findings as above.
--- NOTE | 2018-06-20 11:05 | Pulmonology Progress Note ---
Assessment/Plan Problems: (1) Acute on chronic renal failure (2) Asthma (3) HTN (hypertension) (4) GERD (gastroesophageal reflux disease) (5) Gout (6) DM (diabetes mellitus) Assessment/Plan diuretics so far - 6.5 liters of fluid balance diuresing well, on BUMEX check electrolytes titrate fio2 respiratory treatment prn check intake /output check renal US f/u by renal and cardiology Subjective ROS Limited/Unobtainable: No Constitutional: Reports: no symptoms HEENT: Repors: no symptoms Respiratory: Reports: no symptoms Allergies: Coded Allergies: DIAZEPAM (Verified Allergy, Unknown, 10/07/11) HYDROCODONE (Verified Allergy, Unknown, 07/07/10) MINOXIDIL (Verified Allergy, Unknown, 07/07/10) NAME ALERT (Verified Adverse Reaction, Unknown, 07/13/08) Objective Last 24 Hour Vital Signs Date Time Temp Pulse Resp B/P (MAP) Pulse Ox O2 Delivery O2 Flow Rate FiO2 06/20/18 10:26 Nasal Cannula 2.0 06/20/18 09:00 129/59 06/20/18 08:25 97 Nasal Cannula 2.0 28 06/20/18 08:25 74 16 Nasal Cannula 2.0 28 06/20/18 08:25 Nasal Cannula 2.0 28 06/20/18 08:00 97.1 74 20 129/59 (82) 97 97.1 06/20/18 08:00 74 06/20/18 04:00 97.5 76 18 123/82 (96) 97 97.5 06/20/18 04:00 70 06/20/18 00:00 63 06/20/18 00:00 98.9 69 18 121/62 (81) 96 98.9 06/19/18 21:00 Nasal Cannula 2.0 06/19/18 20:00 80 16 Nasal Cannula 2.0 28 06/19/18 20:00 99.7 87 19 138/75 (96) 94 99.7 06/19/18 20:00 95 Nasal Cannula 2.0 28 06/19/18 20:00 82 06/19/18 20:00 Nasal Cannula 2.0 28 06/19/18 19:15 99.7 06/19/18 18:16 100.2 06/19/18 17:10 99 06/19/18 17:10 100.4 102 20 157/81 (106) 96 100.4 06/19/18 16:00 102.6 106 20 166/82 (110) 96 102.6 06/19/18 12:00 98.2 69 20 154/89 (110) 96 98.2 Intake and Output 06/19/18 06/20/18 19:00 07:00 Intake Total 480 ml 50 ml Output Total 1500 ml 650 ml Balance -1020 ml -600 ml Intake Oral 480 ml 50 ml Output Urine Total 1500 ml 650 ml Objective General Appearance: WD/WN HEENT: normocephalic Respiratory/Chest: chest wall non-tender, lungs clear Cardiovascular: normal peripheral pulses, normal rate Abdomen: normal bowel sounds, soft, non tender Extremities: no cyanosis, massive edema Microbiology Date/Time Source Procedure Growth Status 06/19/18 17:00 Indwelling Cath Urine Culture - Preliminary Resulted Laboratory Tests 06/20/18 06:10: White Blood Count 8.6#, Red Blood Count 3.89L, Hemoglobin 11.4L, Hematocrit 36.3L, Mean Corpuscular Volume 93, Mean Corpuscular Hemoglobin 29.4, Mean Corpuscular Hemoglobin Concent 31.5L, Red Cell Distribution Width 14.1, Platelet Count 139L, Mean Platelet Volume 6.5, Neutrophils (%) (Auto) 80.7H, Lymphocytes (%) (Auto) 11.3L, Monocytes (%) (Auto) 7.3, Eosinophils (%) (Auto) 0.2, Basophils (%) (Auto) 0.5, Sodium Level 140, Potassium Level 4.6, Chloride Level 105, Carbon Dioxide Level 25, Anion Gap 10, Blood Urea Nitrogen 47H, Creatinine 2.9H, Estimat Glomerular Filtration Rate , Glucose Level 105, Calcium Level 8.9 Current Medications Medications (Trade) Dose Ordered Sig/Liss Route PRN Reason Start Time Stop Time Status Last Admin Dose Admin Acetaminophen (Tylenol) 650 mg Q4H PRN ORAL Fever 06/19/18 18:00 07/16/18 17:59 06/19/18 18:16 Albuterol/ Ipratropium (Albuterol/ Ipratropium) 3 ml Q4H PRN HHN Shortness of Breath 06/19/18 18:00 06/21/18 17:59 Allopurinol (Zyloprim) 100 mg DAILY ORAL 06/20/18 09:00 07/17/18 08:59 Bumetanide (Bumex) 1 mg Q12HR ORAL 06/19/18 21:00 07/19/18 20:59 Chlorhexidine Gluconate (Katey-Hex 2%) 1 applic DAILY@2000 TOPIC 06/20/18 20:00 07/20/18 19:59 Dextrose (Dextrose 50%) STAT PRN IV Hypoglycemia 06/19/18 18:00 07/18/18 17:59 Dextrose (Dextrose 50%) 50 ml STAT PRN IV Hypoglycemia 06/19/18 18:00 07/18/18 17:59 Gabapentin (Neurontin) 400 mg DAILY ORAL 06/20/18 09:00 07/16/18 17:59 Heparin Sodium (Porcine) (Heparin 5000 units/ml) 5,000 units EVERY 12 HOURS SUBQ 06/19/18 21:00 07/16/18 20:59 06/19/18 21:21 Heparin Sodium/ Sodium Chloride (Heparin 2000 units/Ns 1000ml premix) 2,000 unit ONCE PRN INJ PICC LINE INSERTION 06/19/18 18:00 06/21/18 23:59 Hydroxyzine HCl (Atarax) 25 mg Q6H PRN ORAL Itching 06/19/18 18:00 07/18/18 17:59 Isosorbide Dinitrate (Isordil) 5 mg EVERY 12 HOURS ORAL 06/19/18 21:00 07/16/18 20:59 Lidocaine HCl (Xylocaine 1% 30ml) 30 ml ONCE PRN INJ PICC LINE INSERTION 06/19/18 18:00 06/21/18 23:59 Metoprolol Succinate (Toprol XL) 25 mg DAILY ORAL 06/20/18 09:00 07/17/18 08:59 Ondansetron HCl (Zofran ODT) 4 mg Q6H PRN ORAL Nausea & Vomiting 06/19/18 18:00 07/19/18 17:59 Ondansetron HCl (Zofran) 4 mg Q6H PRN IVP Nausea & Vomiting 06/19/18 18:00 07/18/18 17:59 06/19/18 21:19 Oxycodone HCl (Roxicodone) 30 mg Q8H PRN ORAL For Pain 06/19/18 18:00 06/23/18 17:59 Polyethylene Glycol (Miralax) 17 gm DAILYPRN PRN ORAL Constipation 06/19/18 18:00 07/18/18 17:59 Quetiapine Fumarate (SEROquel) 12.5 mg Q4H PRN ORAL agitation 06/19/18 18:00 07/18/18 17:59 Roberta Durán MD Jun 20, 2018 11:05
--- NOTE | 2018-06-20 11:34 | Cardiology Progress Note ---
Assessment/Plan Status: stable Assessment/Plan Assessment: 1. Hypertension. 2. Diabetes type 2. 3. Asthma. 4. Congestive heart failure. 5. Cardiomyopathy. 6. Osteoarthritis. 7. Cerebrovascular disease, status post cerebral vascular accident x3, last being in 2017. 8. Chronic renal failure. 9. History of superficial deep venous thrombosis of the bilateral lower extremities. Plan: LE ultrasound to evaluate DVT --> Negative Aspirin Statin Glucose control Echocardiogram reviewed - diastolic heart disease - continue diuresis, low salt cardiac diet Monitor BP renal ultrasound, urine electrolytes Continue PO bumex 1 mg PO BID Continue isordil Continue metoprolol Monitor I/O and creatinine Dispo planning Subjective Cardiovascular: Reports: no symptoms Respiratory: Reports: no symptoms Gastrointestinal/Abdominal: Reports: no symptoms Genitourinary: Reports: no symptoms Subjective No acute events, vitals stable. LE US negative for DVT. Echo with preserved LV function. Making good diuresis. LE edema improved Refused AM bumex and imdur, refused PICC line placement Had some emesis/nausea this morning. Objective Last 24 Hour Vital Signs Date Time Temp Pulse Resp B/P (MAP) Pulse Ox O2 Delivery O2 Flow Rate FiO2 06/20/18 10:26 Nasal Cannula 2.0 06/20/18 09:00 129/59 06/20/18 08:25 97 Nasal Cannula 2.0 28 06/20/18 08:25 74 16 Nasal Cannula 2.0 28 06/20/18 08:25 Nasal Cannula 2.0 28 06/20/18 08:00 97.1 74 20 129/59 (82) 97 97.1 06/20/18 08:00 74 06/20/18 04:00 97.5 76 18 123/82 (96) 97 97.5 06/20/18 04:00 70 06/20/18 00:00 63 06/20/18 00:00 98.9 69 18 121/62 (81) 96 98.9 06/19/18 21:00 Nasal Cannula 2.0 06/19/18 20:00 80 16 Nasal Cannula 2.0 28 06/19/18 20:00 99.7 87 19 138/75 (96) 94 99.7 06/19/18 20:00 95 Nasal Cannula 2.0 28 06/19/18 20:00 82 06/19/18 20:00 Nasal Cannula 2.0 28 06/19/18 19:15 99.7 06/19/18 18:16 100.2 06/19/18 17:10 99 06/19/18 17:10 100.4 102 20 157/81 (106) 96 100.4 06/19/18 16:00 102.6 106 20 166/82 (110) 96 102.6 06/19/18 12:00 98.2 69 20 154/89 (110) 96 98.2 General Appearance: no apparent distress, alert EENT: PERRL/EOMI, normal ENT inspection Neck: non-tender, normal alignment, supple Rhythm: NSR Cardiovascular: normal peripheral pulses, normal rate, regular rhythm Respiratory/Chest: chest wall non-tender, lungs clear Abdomen: normal bowel sounds, non tender Extremities: normal range of motion Neurologic: nurse case management II-XII grossly normal Intake and Output 06/19/18 06/20/18 19:00 07:00 Intake Total 480 ml 50 ml Output Total 1500 ml 650 ml Balance -1020 ml -600 ml Intake Oral 480 ml 50 ml Output Urine Total 1500 ml 650 ml Laboratory Tests Test 06/20/18 06:10 White Blood Count 8.6 K/UL (4.8-10.8) # Red Blood Count 3.89 M/UL (4.20-5.40) L Hemoglobin 11.4 G/DL (12.0-16.0) L Hematocrit 36.3 % (37.0-47.0) L Mean Corpuscular Volume 93 FL (80-99) Mean Corpuscular Hemoglobin 29.4 PG (27.0-31.0) Mean Corpuscular Hemoglobin Concent 31.5 G/DL (32.0-36.0) L Red Cell Distribution Width 14.1 % (11.6-14.8) Platelet Count 139 K/UL (150-450) L Mean Platelet Volume 6.5 FL (6.5-10.1) Neutrophils (%) (Auto) 80.7 % (45.0-75.0) H Lymphocytes (%) (Auto) 11.3 % (20.0-45.0) L Monocytes (%) (Auto) 7.3 % (1.0-10.0) Eosinophils (%) (Auto) 0.2 % (0.0-3.0) Basophils (%) (Auto) 0.5 % (0.0-2.0) Sodium Level 140 MMOL/L (136-145) Potassium Level 4.6 MMOL/L (3.5-5.1) Chloride Level 105 MMOL/L (98-107) Carbon Dioxide Level 25 MMOL/L (21-32) Anion Gap 10 mmol/L (5-15) Blood Urea Nitrogen 47 mg/dL (7-18) H Creatinine 2.9 MG/DL (0.55-1.30) H Estimat Glomerular Filtration Rate mL/min (>60) Glucose Level 105 MG/DL (74-106) Calcium Level 8.9 MG/DL (8.5-10.1) Microbiology Date/Time Source Procedure Growth Status 06/19/18 17:00 Indwelling Cath Urine Culture - Preliminary Resulted Vincent Hernandez M.D. Jun 20, 2018 11:34
[2018-06-20 12:00] VITALS: BP 109/70
--- NOTE | 2018-06-20 12:22 | Consultation ---
History of Present Illness General Date patient seen: Jun 20, 2018 Chief Complaint: Edema Present Illness Allergies: Coded Allergies: DIAZEPAM (Verified Allergy, Unknown, 10/07/11) HYDROCODONE (Verified Allergy, Unknown, 07/07/10) MINOXIDIL (Verified Allergy, Unknown, 07/07/10) NAME ALERT (Verified Adverse Reaction, Unknown, 07/13/08) Medication History Scheduled Allopurinol* (Allopurinol*), 100 MG ORAL DAILY, (Reported) Amlodipine/Atorvastatin 2.5-40 Mg (Amlodipine-Atorvast 2.5-40 Mg), 1 TAB ORAL DAILY, (Reported) Calcitriol (Calcitriol), 0.25 MCG PO 3XW, (Reported) Cephalexin* (Keflex*), 250 MG ORAL EVERY 6 HOURS Dexlansoprazole (Dexilant), 60 MG ORAL DAILY, (Reported) Fluticasone/Salmeterol (Advair 100-50 Diskus), 1 PUFF INH EVERY 12 HOURS, ( Reported) Furosemide* (Lasix*), 40 MG ORAL TWICE A DAY, (Reported) Furosemide* (Lasix*), 40 MG ORAL DAILY, (Reported) Gabapentin* (Gabapentin*), 300 MG ORAL QID, (Reported) Isosorbide Dinitrate* (Isordil*), 5 MG ORAL EVERY 12 HOURS, (Reported) Lidocaine (Lidocaine), 700 MG TP DAILY, (Reported) Metoprolol Succinate* (Metoprolol Succinate*), 25 MG ORAL DAILY, (Reported) Nitrofurantoin Monohyd/M-Cryst (Nitrofurantoin [place]-Mcr 100 mg), 100 MG ORAL Q12H Scheduled PRN Oxycodone Hcl* (Oxycodone Hcl*), 30 MG ORAL Q8H PRN for For Pain, (Reported) Miscellaneous Medications Oxybutynin Chloride (Oxybutynin Chloride), 15 MG ORAL, (Reported) Patient History History Provided By: Patient, Medical Record, PMD Healthcare decision maker Resuscitation status Full Code Advanced Directive on File Review of Systems Psychiatric: Reports: prior hx, anxiety, depressed feelings Physical Exam General Appearance: no apparent distress, alert Neurologic: oriented x 3, responsive, depressed affect Last 24 Hour Vital Signs Date Time Temp Pulse Resp B/P (MAP) Pulse Ox O2 Delivery O2 Flow Rate FiO2 06/20/18 10:26 Nasal Cannula 2.0 06/20/18 09:00 129/59 06/20/18 08:25 97 Nasal Cannula 2.0 28 06/20/18 08:25 74 16 Nasal Cannula 2.0 28 06/20/18 08:25 Nasal Cannula 2.0 28 06/20/18 08:00 97.1 74 20 129/59 (82) 97 97.1 06/20/18 08:00 74 06/20/18 04:00 97.5 76 18 123/82 (96) 97 97.5 06/20/18 04:00 70 06/20/18 00:00 63 06/20/18 00:00 98.9 69 18 121/62 (81) 96 98.9 06/19/18 21:00 Nasal Cannula 2.0 06/19/18 20:00 80 16 Nasal Cannula 2.0 28 06/19/18 20:00 99.7 87 19 138/75 (96) 94 99.7 06/19/18 20:00 95 Nasal Cannula 2.0 28 06/19/18 20:00 82 06/19/18 20:00 Nasal Cannula 2.0 28 06/19/18 19:15 99.7 06/19/18 18:16 100.2 06/19/18 17:10 99 06/19/18 17:10 100.4 102 20 157/81 (106) 96 100.4 06/19/18 16:00 102.6 106 20 166/82 (110) 96 102.6 Intake and Output 06/19/18 06/20/18 19:00 07:00 Intake Total 480 ml 50 ml Output Total 1500 ml 650 ml Balance -1020 ml -600 ml Intake Oral 480 ml 50 ml Output Urine Total 1500 ml 650 ml Laboratory Tests Test 06/20/18 06:10 White Blood Count 8.6 K/UL (4.8-10.8) # Red Blood Count 3.89 M/UL (4.20-5.40) L Hemoglobin 11.4 G/DL (12.0-16.0) L Hematocrit 36.3 % (37.0-47.0) L Mean Corpuscular Volume 93 FL (80-99) Mean Corpuscular Hemoglobin 29.4 PG (27.0-31.0) Mean Corpuscular Hemoglobin Concent 31.5 G/DL (32.0-36.0) L Red Cell Distribution Width 14.1 % (11.6-14.8) Platelet Count 139 K/UL (150-450) L Mean Platelet Volume 6.5 FL (6.5-10.1) Neutrophils (%) (Auto) 80.7 % (45.0-75.0) H Lymphocytes (%) (Auto) 11.3 % (20.0-45.0) L Monocytes (%) (Auto) 7.3 % (1.0-10.0) Eosinophils (%) (Auto) 0.2 % (0.0-3.0) Basophils (%) (Auto) 0.5 % (0.0-2.0) Sodium Level 140 MMOL/L (136-145) Potassium Level 4.6 MMOL/L (3.5-5.1) Chloride Level 105 MMOL/L (98-107) Carbon Dioxide Level 25 MMOL/L (21-32) Anion Gap 10 mmol/L (5-15) Blood Urea Nitrogen 47 mg/dL (7-18) H Creatinine 2.9 MG/DL (0.55-1.30) H Estimat Glomerular Filtration Rate mL/min (>60) Glucose Level 105 MG/DL (74-106) Calcium Level 8.9 MG/DL (8.5-10.1) Microbiology Date/Time Source Procedure Growth Status 06/19/18 17:00 Indwelling Cath Urine Culture - Preliminary Resulted Height (Feet): 5 Height (Inches): 2.00 Weight (Pounds): 180 Medications Current Medications Medications (Trade) Dose Ordered Sig/Liss Route PRN Reason Start Time Stop Time Status Last Admin Dose Admin Acetaminophen (Tylenol) 650 mg Q4H PRN ORAL Fever 06/19/18 18:00 07/16/18 17:59 06/19/18 18:16 Albuterol/ Ipratropium (Albuterol/ Ipratropium) 3 ml Q4H PRN HHN Shortness of Breath 06/19/18 18:00 06/21/18 17:59 Allopurinol (Zyloprim) 100 mg DAILY ORAL 06/20/18 09:00 07/17/18 08:59 Bumetanide (Bumex) 1 mg Q12HR ORAL 06/19/18 21:00 07/19/18 20:59 Chlorhexidine Gluconate (Katey-Hex 2%) 1 applic DAILY@2000 TOPIC 06/20/18 20:00 07/20/18 19:59 Dextrose (Dextrose 50%) STAT PRN IV Hypoglycemia 06/19/18 18:00 07/18/18 17:59 Dextrose (Dextrose 50%) 50 ml STAT PRN IV Hypoglycemia 06/19/18 18:00 07/18/18 17:59 Gabapentin (Neurontin) 400 mg DAILY ORAL 06/20/18 09:00 07/16/18 17:59 Heparin Sodium (Porcine) (Heparin 5000 units/ml) 5,000 units EVERY 12 HOURS SUBQ 06/19/18 21:00 07/16/18 20:59 06/19/18 21:21 Heparin Sodium/ Sodium Chloride (Heparin 2000 units/Ns 1000ml premix) 2,000 unit ONCE PRN INJ PICC LINE INSERTION 06/19/18 18:00 06/21/18 23:59 Hydroxyzine HCl (Atarax) 25 mg Q6H PRN ORAL Itching 06/19/18 18:00 07/18/18 17:59 Isosorbide Dinitrate (Isordil) 5 mg EVERY 12 HOURS ORAL 06/19/18 21:00 07/16/18 20:59 Lidocaine HCl (Xylocaine 1% 30ml) 30 ml ONCE PRN INJ PICC LINE INSERTION 06/19/18 18:00 06/21/18 23:59 Metoprolol Succinate (Toprol XL) 25 mg DAILY ORAL 06/20/18 09:00 07/17/18 08:59 Ondansetron HCl (Zofran ODT) 4 mg Q6H PRN ORAL Nausea & Vomiting 06/19/18 18:00 07/19/18 17:59 Ondansetron HCl (Zofran) 4 mg Q6H PRN IVP Nausea & Vomiting 06/19/18 18:00 07/18/18 17:59 06/19/18 21:19 Oxycodone HCl (Roxicodone) 30 mg Q8H PRN ORAL For Pain 06/19/18 18:00 06/23/18 17:59 Polyethylene Glycol (Miralax) 17 gm DAILYPRN PRN ORAL Constipation 06/19/18 18:00 07/18/18 17:59 Quetiapine Fumarate (SEROquel) 12.5 mg Q4H PRN ORAL agitation 06/19/18 18:00 07/18/18 17:59 Assessment/Plan Status: stable, progressing Assessment/Plan Anxiety d/o Ativan alethean Lee Ann Sutherland MD Jun 20, 2018 12:22
--- NOTE | 2018-06-20 12:29 | Nephrology Progress Note ---
Assessment/Plan Problem List: (1) Acute on chronic renal failure Assessment: stable (2) Edema Assessment: better (3) Nausea & vomiting Plan on po Bumex check PTH follow BMP Subjective Subjective vomited yesterday Objective Objective Last 24 Hour Vital Signs Date Time Temp Pulse Resp B/P (MAP) Pulse Ox O2 Delivery O2 Flow Rate FiO2 06/20/18 10:26 Nasal Cannula 2.0 06/20/18 09:00 129/59 06/20/18 08:25 97 Nasal Cannula 2.0 28 06/20/18 08:25 74 16 Nasal Cannula 2.0 28 06/20/18 08:25 Nasal Cannula 2.0 28 06/20/18 08:00 97.1 74 20 129/59 (82) 97 97.1 06/20/18 08:00 74 06/20/18 04:00 97.5 76 18 123/82 (96) 97 97.5 06/20/18 04:00 70 06/20/18 00:00 63 06/20/18 00:00 98.9 69 18 121/62 (81) 96 98.9 06/19/18 21:00 Nasal Cannula 2.0 06/19/18 20:00 80 16 Nasal Cannula 2.0 28 06/19/18 20:00 99.7 87 19 138/75 (96) 94 99.7 06/19/18 20:00 95 Nasal Cannula 2.0 28 06/19/18 20:00 82 06/19/18 20:00 Nasal Cannula 2.0 28 06/19/18 19:15 99.7 06/19/18 18:16 100.2 06/19/18 17:10 99 06/19/18 17:10 100.4 102 20 157/81 (106) 96 100.4 06/19/18 16:00 102.6 106 20 166/82 (110) 96 102.6 Intake and Output 06/19/18 06/20/18 19:00 07:00 Intake Total 480 ml 50 ml Output Total 1500 ml 650 ml Balance -1020 ml -600 ml Intake Oral 480 ml 50 ml Output Urine Total 1500 ml 650 ml Laboratory Tests 06/20/18 06:10: White Blood Count 8.6#, Red Blood Count 3.89L, Hemoglobin 11.4L, Hematocrit 36.3L, Mean Corpuscular Volume 93, Mean Corpuscular Hemoglobin 29.4, Mean Corpuscular Hemoglobin Concent 31.5L, Red Cell Distribution Width 14.1, Platelet Count 139L, Mean Platelet Volume 6.5, Neutrophils (%) (Auto) 80.7H, Lymphocytes (%) (Auto) 11.3L, Monocytes (%) (Auto) 7.3, Eosinophils (%) (Auto) 0.2, Basophils (%) (Auto) 0.5, Sodium Level 140, Potassium Level 4.6, Chloride Level 105, Carbon Dioxide Level 25, Anion Gap 10, Blood Urea Nitrogen 47H, Creatinine 2.9H, Estimat Glomerular Filtration Rate , Glucose Level 105, Calcium Level 8.9 Height (Feet): 5 Height (Inches): 2.00 Weight (Pounds): 180 Cardiovascular: normal rate Respiratory/Chest: lungs clear Extremities: other - less edema Amor Flores MD Jun 20, 2018 12:29
[2018-06-20 16:00] VITALS: BP 116/69
--- NOTE | 2018-06-20 16:52 | Internal Med Progress Note ---
Subjective Date of Service: Jun 20, 2018 Physician Name Aníbal Cuellar Attending Physician Christopher Villanueva MD Current Medications Medications (Trade) Dose Ordered Sig/Liss Route PRN Reason Start Time Stop Time Status Last Admin Dose Admin Acetaminophen (Tylenol) 650 mg Q4H PRN ORAL Fever 06/19/18 18:00 07/16/18 17:59 06/19/18 18:16 Albuterol/ Ipratropium (Albuterol/ Ipratropium) 3 ml Q4H PRN HHN Shortness of Breath 06/19/18 18:00 06/21/18 17:59 Allopurinol (Zyloprim) 100 mg DAILY ORAL 06/20/18 09:00 07/17/18 08:59 Bumetanide (Bumex) 1 mg Q12HR ORAL 06/19/18 21:00 07/19/18 20:59 Chlorhexidine Gluconate (Katey-Hex 2%) 1 applic DAILY@2000 TOPIC 06/20/18 20:00 07/20/18 19:59 Dextrose (Dextrose 50%) STAT PRN IV Hypoglycemia 06/19/18 18:00 07/18/18 17:59 Dextrose (Dextrose 50%) 50 ml STAT PRN IV Hypoglycemia 06/19/18 18:00 07/18/18 17:59 Gabapentin (Neurontin) 400 mg DAILY ORAL 06/20/18 09:00 07/16/18 17:59 Heparin Sodium (Porcine) (Heparin 5000 units/ml) 5,000 units EVERY 12 HOURS SUBQ 06/19/18 21:00 07/16/18 20:59 06/19/18 21:21 Heparin Sodium/ Sodium Chloride (Heparin 2000 units/Ns 1000ml premix) 2,000 unit ONCE PRN INJ PICC LINE INSERTION 06/19/18 18:00 06/21/18 23:59 Hydroxyzine HCl (Atarax) 25 mg Q6H PRN ORAL Itching 06/19/18 18:00 07/18/18 17:59 Isosorbide Dinitrate (Isordil) 5 mg EVERY 12 HOURS ORAL 06/19/18 21:00 07/16/18 20:59 Lidocaine HCl (Xylocaine 1% 30ml) 30 ml ONCE PRN INJ PICC LINE INSERTION 06/19/18 18:00 06/21/18 23:59 Metoprolol Succinate (Toprol XL) 25 mg DAILY ORAL 06/20/18 09:00 07/17/18 08:59 Ondansetron HCl (Zofran ODT) 4 mg Q6H PRN ORAL Nausea & Vomiting 06/19/18 18:00 07/19/18 17:59 Ondansetron HCl (Zofran) 4 mg Q6H PRN IVP Nausea & Vomiting 06/19/18 18:00 07/18/18 17:59 06/19/18 21:19 Oxycodone HCl (Roxicodone) 30 mg Q8H PRN ORAL For Pain 06/19/18 18:00 06/23/18 17:59 Polyethylene Glycol (Miralax) 17 gm DAILYPRN PRN ORAL Constipation 06/19/18 18:00 07/18/18 17:59 Quetiapine Fumarate (SEROquel) 12.5 mg Q4H PRN ORAL agitation 06/19/18 18:00 07/18/18 17:59 Allergies: Coded Allergies: DIAZEPAM (Verified Allergy, Unknown, 10/07/11) HYDROCODONE (Verified Allergy, Unknown, 07/07/10) MINOXIDIL (Verified Allergy, Unknown, 07/07/10) NAME ALERT (Verified Adverse Reaction, Unknown, 07/13/08) ROS Limited/Unobtainable: No Constitutional: Reports: chills, fever HEENT: Reports: no symptoms Cardiovascular: Reports: no symptoms Respiratory: Reports: no symptoms Gastrointestinal/Abdominal: Reports: nausea, vomiting Genitourinary: Reports: no symptoms Neurologic/Psychiatric: Reports: no symptoms Subjective 82 YO F admitted with bilateral leg swelling. Now CHF. Cover for Int Saúl-Dr Villanueva. Febrile to 102.6F and nausea/vomiting yesterday Objective Last Vital Signs Date Time Temp Pulse Resp B/P (MAP) Pulse Ox O2 Delivery O2 Flow Rate FiO2 06/20/18 12:00 71 06/20/18 12:00 96.3 19 109/70 (83) 93 96.3 06/20/18 10:26 Nasal Cannula 2.0 06/20/18 08:25 28 Laboratory Tests Test 06/20/18 06:10 White Blood Count 8.6 K/UL (4.8-10.8) # Red Blood Count 3.89 M/UL (4.20-5.40) L Hemoglobin 11.4 G/DL (12.0-16.0) L Hematocrit 36.3 % (37.0-47.0) L Mean Corpuscular Volume 93 FL (80-99) Mean Corpuscular Hemoglobin 29.4 PG (27.0-31.0) Mean Corpuscular Hemoglobin Concent 31.5 G/DL (32.0-36.0) L Red Cell Distribution Width 14.1 % (11.6-14.8) Platelet Count 139 K/UL (150-450) L Mean Platelet Volume 6.5 FL (6.5-10.1) Neutrophils (%) (Auto) 80.7 % (45.0-75.0) H Lymphocytes (%) (Auto) 11.3 % (20.0-45.0) L Monocytes (%) (Auto) 7.3 % (1.0-10.0) Eosinophils (%) (Auto) 0.2 % (0.0-3.0) Basophils (%) (Auto) 0.5 % (0.0-2.0) Sodium Level 140 MMOL/L (136-145) Potassium Level 4.6 MMOL/L (3.5-5.1) Chloride Level 105 MMOL/L (98-107) Carbon Dioxide Level 25 MMOL/L (21-32) Anion Gap 10 mmol/L (5-15) Blood Urea Nitrogen 47 mg/dL (7-18) H Creatinine 2.9 MG/DL (0.55-1.30) H Estimat Glomerular Filtration Rate mL/min (>60) Glucose Level 105 MG/DL (74-106) Calcium Level 8.9 MG/DL (8.5-10.1) Microbiology Date/Time Source Procedure Growth Status 06/19/18 17:00 Indwelling Cath Urine Culture - Preliminary Resulted Intake and Output 06/19/18 06/20/18 19:00 07:00 Intake Total 480 ml 50 ml Output Total 1500 ml 650 ml Balance -1020 ml -600 ml Intake Oral 480 ml 50 ml Output Urine Total 1500 ml 650 ml Objective General Appearance: WD/WN, no apparent distress, alert, mild distress EENT: PERRL/EOMI, normal ENT inspection, TMs normal Neck: non-tender, normal alignment, supple, normal inspection Cardiovascular: normal peripheral pulses, normal rate, regular rhythm, no gallop/murmur, no JVD Respiratory/Chest: chest wall non-tender, lungs clear, normal breath sounds, no respiratory distress, no accessory muscle use Abdomen: normal bowel sounds, non tender, soft, no organomegaly, no mass Extremities: normal range of motion Edema: mild edema 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 See nephrology note. D/C lasix; start bumex (2) Edema (3) CHF (congestive heart failure) Assessment & Plan: BNP>1000. See cardiology note. (4) HTN (hypertension) Assessment & Plan: Continue toprol (5) DM (diabetes mellitus) (6) Cardiomyopathy (7) Cerebral vascular disease (8) Nausea & vomiting (9) Fever Assessment & Plan: Await Urine and blood cult. CXR=no infiltrate Assessment/Plan Lost IV access; S/P PICC 06/20/18 Aníbal Cuellar MD Jun 20, 2018 16:52
[2018-06-20 20:00] VITALS: BP 137/75
[2018-06-20] MEDS ORDERED: Dyna-Hex 2% Top Sol 2oz TOPIC SCH ×2 (20:00)
[2018-06-20] MEDS ORDERED: Heparin 2000 units/Ns 1000ml INJ PRN (20:45)
[2018-06-20] MEDS ORDERED: Lidocaine 1% Plain 30 ml INJ PRN (20:45)
[2018-06-20] MEDS ORDERED: Bumetanide 1mg tab ORAL SCH (21:00)
[2018-06-20] MEDS ORDERED: Heparin 5000 units/ml inj SUBQ SCH (21:00)
[2018-06-20] MEDS: HydrOXYzine tab 25mg tab ORAL PRN (21:27)
[2018-06-20] MEDS ORDERED: Albuterol/Ipratropium 3ml neb HHN PRN (22:00)
[2018-06-21] VITALS: BP 135/70
[2018-06-21] MEDS ORDERED: HydrOXYzine tab 25mg tab ORAL PRN
[2018-06-21] MEDS ORDERED: oxyCODONE 15mg IR tab ORAL PRN (02:00)
[2018-06-21] MEDS: HydrOXYzine tab 25mg tab ORAL PRN (03:34)
[2018-06-21 04:00] VITALS: BP 124/67
[2018-06-21 07:12] LABS: BASOPHILS % (AUTO) 0.7 % (0.0-2.0); EOSINOPHILS % (AUTO) 2.8 % (0.0-3.0); HEMATOCRIT 33.6 % (37.0-47.0); HEMOGLOBIN 10.8 G/DL (12.0-16.0); LYMPHOCYTES % (AUTO) 22.5 % (20.0-45.0); MEAN CORPUSCULAR VOLUME 94 FL (80-99); MONOCYTES % (AUTO) 11.1 % (1.0-10.0); NEUTROPHILS % (AUTO) 62.9 % (45.0-75.0); PLATELET COUNT 146 K/UL (150-450); RED BLOOD COUNT 3.59 M/UL (4.20-5.40); RED CELL DISTRIBUTION WIDTH 14.4 % (11.6-14.8); WHITE BLOOD COUNT 5.9 K/UL (4.8-10.8)
[2018-06-21 07:19] LABS: ANION GAP 6 mmol/L (5-15); BLOOD UREA NITROGEN 43 mg/dL (7-18); CALCIUM 8.8 MG/DL (8.5-10.1); CARBON DIOXIDE 30 MMOL/L (21-32); CHLORIDE 106 MMOL/L (98-107); CREATININE 2.8 MG/DL (0.55-1.30); POTASSIUM 4.2 MMOL/L (3.5-5.1); SODIUM 141 MMOL/L (136-145)
[2018-06-21 08:00] VITALS: BP 139/95
[2018-06-21] MEDS ORDERED: Metoprolol Succinate XL 25mg tab ORAL SCH (09:00)
[2018-06-21] MEDS ORDERED: Allopurinol 100mg Tab ORAL SCH (09:00)
[2018-06-21] MEDS ORDERED: Bumetanide 1mg tab ORAL SCH (09:00)
[2018-06-21] MEDS ORDERED: Heparin 5000 units/ml inj SUBQ SCH (09:00)
--- NOTE | 2018-06-21 10:25 | Consultation ---
History of Present Illness General Date patient seen: Jun 21, 2018 Chief Complaint: Edema Reason for Consultation: Fever Present Illness HPI Infectious Diseases Consult Note Ms. Tyson is a 82 yo female who presented from [facility] with lower extremity edema. She has a Hx of DVT so was sent to the ED. Us Marketing Director US of the legs were incomplete but did not show any DVT. She had a single episode of fevers two days ago but has been afebrile since without initiation of antibiotics. Blood and urine cultures are negative to date. She reports that her leg swelling is significantly better. She denies Fevers, Dysuria, Abdominal Pain and SOB. PMHx # HTN # DM # Asthma. # CHF # Cardiomyopathy. # Osteoarthritis. # CVA Cerebrovascular disease, status post cerebral vascular accident x3,last being in 2017. # CKD # Hx of DVTs. PSHx Cholecystectomy. Appendectomy. hysterectomy Throat surgery SocHx No E/T/D FamHx Review Not contributory Allergies: Coded Allergies: DIAZEPAM (Verified Allergy, Unknown, 10/07/11) HYDROCODONE (Verified Allergy, Unknown, 07/07/10) MINOXIDIL (Verified Allergy, Unknown, 07/07/10) NAME ALERT (Verified Adverse Reaction, Unknown, 07/13/08) Medication History Scheduled Allopurinol* (Allopurinol*), 100 MG ORAL DAILY, (Reported) Amlodipine/Atorvastatin 2.5-40 Mg (Amlodipine-Atorvast 2.5-40 Mg), 1 TAB ORAL DAILY, (Reported) Calcitriol (Calcitriol), 0.25 MCG PO 3XW, (Reported) Cephalexin* (Keflex*), 250 MG ORAL EVERY 6 HOURS Dexlansoprazole (Dexilant), 60 MG ORAL DAILY, (Reported) Fluticasone/Salmeterol (Advair 100-50 Diskus), 1 PUFF INH EVERY 12 HOURS, ( Reported) Furosemide* (Lasix*), 40 MG ORAL TWICE A DAY, (Reported) Furosemide* (Lasix*), 40 MG ORAL DAILY, (Reported) Gabapentin* (Gabapentin*), 300 MG ORAL QID, (Reported) Isosorbide Dinitrate* (Isordil*), 5 MG ORAL EVERY 12 HOURS, (Reported) Lidocaine (Lidocaine), 700 MG TP DAILY, (Reported) Metoprolol Succinate* (Metoprolol Succinate*), 25 MG ORAL DAILY, (Reported) Nitrofurantoin Monohyd/M-Cryst (Nitrofurantoin [place]-Mcr 100 mg), 100 MG ORAL Q12H Scheduled PRN Oxycodone Hcl* (Oxycodone Hcl*), 30 MG ORAL Q8H PRN for For Pain, (Reported) Miscellaneous Medications Oxybutynin Chloride (Oxybutynin Chloride), 15 MG ORAL, (Reported) Patient History Healthcare decision maker Resuscitation status Full Code Advanced Directive on File Review of Systems All Other Systems: negative except mentioned in HPI Physical Exam Last 24 Hour Vital Signs Date Time Temp Pulse Resp B/P (MAP) Pulse Ox O2 Delivery O2 Flow Rate FiO2 06/21/18 09:25 139/95 06/21/18 09:25 97 139/95 06/21/18 08:00 97.7 97 22 139/95 (110) 96 97.7 06/21/18 04:00 97.7 80 20 124/67 (86) 96 97.7 06/21/18 00:00 98.0 82 19 135/70 (91) 94 98.0 06/20/18 21:00 Room Air 06/20/18 20:18 137/75 06/20/18 20:00 98.1 77 19 137/75 (95) 94 98.1 06/20/18 19:00 96 Nasal Cannula 2.0 28 06/20/18 19:00 86 16 Nasal Cannula 2.0 28 06/20/18 19:00 Nasal Cannula 2.0 28 06/20/18 16:00 82 06/20/18 16:00 96.3 77 19 116/69 (85) 93 96.3 06/20/18 12:00 71 06/20/18 12:00 96.3 77 19 109/70 (83) 93 96.3 06/20/18 10:26 Nasal Cannula 2.0 Intake and Output 06/20/18 06/21/18 19:00 07:00 Intake Total 300 ml Output Total 250 ml 900 ml Balance 50 ml -900 ml Intake Oral 300 ml Output Urine Total 250 ml 900 ml Laboratory Tests Test 06/21/18 06:10 White Blood Count 5.9 K/UL (4.8-10.8) Red Blood Count 3.59 M/UL (4.20-5.40) L Hemoglobin 10.8 G/DL (12.0-16.0) L Hematocrit 33.6 % (37.0-47.0) L Mean Corpuscular Volume 94 FL (80-99) Mean Corpuscular Hemoglobin 30.2 PG (27.0-31.0) Mean Corpuscular Hemoglobin Concent 32.3 G/DL (32.0-36.0) Red Cell Distribution Width 14.4 % (11.6-14.8) Platelet Count 146 K/UL (150-450) L Mean Platelet Volume 6.0 FL (6.5-10.1) L Neutrophils (%) (Auto) 62.9 % (45.0-75.0) Lymphocytes (%) (Auto) 22.5 % (20.0-45.0) Monocytes (%) (Auto) 11.1 % (1.0-10.0) H Eosinophils (%) (Auto) 2.8 % (0.0-3.0) Basophils (%) (Auto) 0.7 % (0.0-2.0) Sodium Level 141 MMOL/L (136-145) Potassium Level 4.2 MMOL/L (3.5-5.1) Chloride Level 106 MMOL/L (98-107) Carbon Dioxide Level 30 MMOL/L (21-32) Anion Gap 6 mmol/L (5-15) Blood Urea Nitrogen 43 mg/dL (7-18) H Creatinine 2.8 MG/DL (0.55-1.30) H Estimat Glomerular Filtration Rate mL/min (>60) Glucose Level 89 MG/DL (74-106) Calcium Level 8.8 MG/DL (8.5-10.1) Height (Feet): 5 Height (Inches): 2.00 Weight (Pounds): 180 Medications Current Medications Medications (Trade) Dose Ordered Sig/Liss Route PRN Reason Start Time Stop Time Status Last Admin Dose Admin Acetaminophen (Tylenol) 650 mg Q4H PRN ORAL Fever 06/20/18 20:51 07/16/18 20:50 Albuterol/ Ipratropium (Albuterol/ Ipratropium) 3 ml Q4H PRN HHN Shortness of Breath 06/20/18 22:00 06/21/18 17:59 Allopurinol (Zyloprim) 100 mg DAILY ORAL 06/21/18 09:00 07/17/18 08:59 06/21/18 09:25 Bumetanide (Bumex) 1 mg Q12HR ORAL 06/21/18 09:00 07/21/18 08:59 06/21/18 09:25 Chlorhexidine Gluconate (Katey-Hex 2%) 1 applic DAILY@2000 TOPIC 06/21/18 20:00 07/20/18 19:59 Dextrose (Dextrose 50%) STAT PRN IV Hypoglycemia 06/21/18 18:00 07/18/18 17:59 Dextrose (Dextrose 50%) 50 ml STAT PRN IV Hypoglycemia 06/21/18 18:00 07/18/18 17:59 Gabapentin (Neurontin) 400 mg DAILY ORAL 06/21/18 09:00 07/16/18 17:59 Heparin Sodium (Porcine) (Heparin 5000 units/ml) 5,000 units EVERY 12 HOURS SUBQ 06/21/18 09:00 07/21/18 08:59 Heparin Sodium/ Sodium Chloride (Heparin 2000 units/Ns 1000ml premix) 2,000 unit ONCE PRN INJ PICC 06/20/18 20:45 06/21/18 20:44 Hydroxyzine HCl (Atarax) 25 mg Q6H PRN ORAL Itching 06/20/18 21:13 07/20/18 21:12 06/21/18 03:34 Isosorbide Dinitrate (Isordil) 5 mg EVERY 12 HOURS ORAL 06/21/18 09:00 07/21/18 08:59 06/21/18 09:25 Lidocaine HCl (Xylocaine 1% 30ml) 30 ml ONCE PRN INJ PICC 06/20/18 20:45 06/21/18 20:44 Metoprolol Succinate (Toprol XL) 25 mg DAILY ORAL 06/21/18 09:00 07/17/18 08:59 06/21/18 09:25 Ondansetron HCl (Zofran ODT) 4 mg Q6H PRN ORAL Nausea & Vomiting 06/21/18 00:00 07/19/18 17:59 Ondansetron HCl (Zofran) 4 mg Q6H PRN IVP Nausea & Vomiting 06/21/18 00:00 07/18/18 17:59 Oxycodone HCl (Roxicodone) 30 mg Q8H PRN ORAL For Pain 06/21/18 02:00 06/23/18 17:59 Polyethylene Glycol (Miralax) 17 gm DAILYPRN PRN ORAL Constipation 06/21/18 18:00 07/18/18 17:59 Quetiapine Fumarate (SEROquel) 12.5 mg Q4H PRN ORAL agitation 06/20/18 22:00 07/18/18 17:59 Objective Narrative Gen: NAD, well appearing, alert HEENT: NCAT, MMM, EOMI, PERRL, No Oral lesion, no scleral icterus NECK: full range of motion, supple, no meningismus, No LAD, No JVD LUNGS: CTAB, No W/C, No Accessory muscle use CARDS: RRR, S1, S2, No M/R/G,~ ABD: Soft, Obese, NT, ND, No R/G, + BS, No HSM, No Masses : Deferred Ext: Mild pedal edema, No erythema, Pulses 1+ B/L (DP, Rad) NEURO: A/O x 4, Strength and Sensation Grossly intact PSYCH: mood/affect normal SKIN: warm/dry, No rashes, Chronic venous stasis changes in the legs Assessment/Plan Assessment/Plan 82 yo female who presented from [facility] with lower extremity edema with transient fever. # Fever Now resolved - f/u cultures - Hold off on Abx ~# HTN # DM # Asthma. # CHF # Cardiomyopathy. # Osteoarthritis. # CVA Cerebrovascular disease, status post cerebral vascular accident x3,last being in 2017. # CKD # Hx of DVTs. PLAN: - Monitor clinically - No antibiotic at this point - Monitor CBC and temps - Supportive care Thank you for consulting us for the care of this patient. We will continue to follow with you. Vincent Obrien M.D. Jun 21, 2018 10:25
--- NOTE | 2018-06-21 11:32 | Cardiology Progress Note ---
Assessment/Plan Status: stable Assessment/Plan Assessment: 1. Hypertension. 2. Diabetes type 2. 3. Asthma. 4. Congestive heart failure. 5. Cardiomyopathy. 6. Osteoarthritis. 7. Cerebrovascular disease, status post cerebral vascular accident x3, last being in 2017. 8. Chronic renal failure. 9. History of superficial deep venous thrombosis of the bilateral lower extremities. Plan: LE ultrasound to evaluate DVT --> Negative Aspirin Statin Glucose control Echocardiogram reviewed - diastolic heart disease - continue diuresis, low salt cardiac diet Monitor BP - currently controlled Renal function stable renal ultrasound, urine electrolytes Continue PO bumex 1 mg PO BID Continue isordil Continue metoprolol Monitor I/O and creatinine Dispo planning Subjective Cardiovascular: Reports: no symptoms Respiratory: Reports: no symptoms Gastrointestinal/Abdominal: Reports: no symptoms Genitourinary: Reports: no symptoms Subjective Transferred to floor, No acute events, vitals stable. LE US negative for DVT. Echo with preserved LV function. Making good diuresis. LE edema improved Objective Last 24 Hour Vital Signs Date Time Temp Pulse Resp B/P (MAP) Pulse Ox O2 Delivery O2 Flow Rate FiO2 06/21/18 09:25 139/95 06/21/18 09:25 97 139/95 06/21/18 09:00 Room Air 06/21/18 08:00 97.7 97 22 139/95 (110) 96 97.7 06/21/18 04:00 97.7 80 20 124/67 (86) 96 97.7 06/21/18 00:00 98.0 82 19 135/70 (91) 94 98.0 06/20/18 21:00 Room Air 06/20/18 20:18 137/75 06/20/18 20:00 98.1 77 19 137/75 (95) 94 98.1 06/20/18 19:00 96 Nasal Cannula 2.0 28 06/20/18 19:00 86 16 Nasal Cannula 2.0 28 06/20/18 19:00 Nasal Cannula 2.0 28 06/20/18 16:00 82 06/20/18 16:00 96.3 77 19 116/69 (85) 93 96.3 06/20/18 12:00 71 06/20/18 12:00 96.3 77 19 109/70 (83) 93 96.3 General Appearance: no apparent distress, alert EENT: normal ENT inspection, TMs normal, pharynx normal Neck: non-tender, normal alignment, supple, normal inspection Rhythm: NSR Cardiovascular: normal peripheral pulses, normal rate, regular rhythm Respiratory/Chest: chest wall non-tender, lungs clear Abdomen: normal bowel sounds, non tender Extremities: normal range of motion, non-tender 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 Intake and Output 06/20/18 06/21/18 19:00 07:00 Intake Total 300 ml Output Total 250 ml 900 ml Balance 50 ml -900 ml Intake Oral 300 ml Output Urine Total 250 ml 900 ml Laboratory Tests Test 06/21/18 06:10 White Blood Count 5.9 K/UL (4.8-10.8) Red Blood Count 3.59 M/UL (4.20-5.40) L Hemoglobin 10.8 G/DL (12.0-16.0) L Hematocrit 33.6 % (37.0-47.0) L Mean Corpuscular Volume 94 FL (80-99) Mean Corpuscular Hemoglobin 30.2 PG (27.0-31.0) Mean Corpuscular Hemoglobin Concent 32.3 G/DL (32.0-36.0) Red Cell Distribution Width 14.4 % (11.6-14.8) Platelet Count 146 K/UL (150-450) L Mean Platelet Volume 6.0 FL (6.5-10.1) L Neutrophils (%) (Auto) 62.9 % (45.0-75.0) Lymphocytes (%) (Auto) 22.5 % (20.0-45.0) Monocytes (%) (Auto) 11.1 % (1.0-10.0) H Eosinophils (%) (Auto) 2.8 % (0.0-3.0) Basophils (%) (Auto) 0.7 % (0.0-2.0) Sodium Level 141 MMOL/L (136-145) Potassium Level 4.2 MMOL/L (3.5-5.1) Chloride Level 106 MMOL/L (98-107) Carbon Dioxide Level 30 MMOL/L (21-32) Anion Gap 6 mmol/L (5-15) Blood Urea Nitrogen 43 mg/dL (7-18) H Creatinine 2.8 MG/DL (0.55-1.30) H Estimat Glomerular Filtration Rate mL/min (>60) Glucose Level 89 MG/DL (74-106) Calcium Level 8.8 MG/DL (8.5-10.1) Microbiology Date/Time Source Procedure Growth Status 06/19/18 19:00 Blood Blood Culture - Preliminary NO GROWTH AFTER 24 HOURS Resulted 06/19/18 18:45 Blood Blood Culture - Preliminary NO GROWTH AFTER 24 HOURS Resulted 06/19/18 17:00 Indwelling Cath Urine Culture - Preliminary Resulted Vincent Hernandez M.D. Jun 21, 2018 11:32
[2018-06-21 12:00] VITALS: BP 147/73
--- NOTE | 2018-06-21 12:10 | General Progress Note ---
Assessment/Plan Status: stable Assessment/Plan Anxiety d/o Ativan prn Seroquel prn Subjective Date patient seen: Jun 21, 2018 Neurologic/Psychiatric: Reports: anxiety, depressed, emotional problems Allergies: Coded Allergies: DIAZEPAM (Verified Allergy, Unknown, 10/07/11) HYDROCODONE (Verified Allergy, Unknown, 07/07/10) MINOXIDIL (Verified Allergy, Unknown, 07/07/10) NAME ALERT (Verified Adverse Reaction, Unknown, 07/13/08) Objective Last 24 Hour Vital Signs Date Time Temp Pulse Resp B/P (MAP) Pulse Ox O2 Delivery O2 Flow Rate FiO2 06/21/18 12:00 97.1 81 20 147/73 (97) 97 97.1 06/21/18 09:25 139/95 06/21/18 09:25 97 139/95 06/21/18 09:00 Room Air 06/21/18 08:00 97.7 97 22 139/95 (110) 96 97.7 06/21/18 04:00 97.7 80 20 124/67 (86) 96 97.7 06/21/18 00:00 98.0 82 19 135/70 (91) 94 98.0 06/20/18 21:00 Room Air 06/20/18 20:18 137/75 06/20/18 20:00 98.1 77 19 137/75 (95) 94 98.1 06/20/18 19:00 96 Nasal Cannula 2.0 28 06/20/18 19:00 86 16 Nasal Cannula 2.0 28 06/20/18 19:00 Nasal Cannula 2.0 28 06/20/18 16:00 82 06/20/18 16:00 96.3 77 19 116/69 (85) 93 96.3 Intake and Output 06/20/18 06/21/18 19:00 07:00 Intake Total 300 ml Output Total 250 ml 900 ml Balance 50 ml -900 ml Intake Oral 300 ml Output Urine Total 250 ml 900 ml Laboratory Tests 06/21/18 06:10: White Blood Count 5.9, Red Blood Count 3.59L, Hemoglobin 10.8L, Hematocrit 33.6L , Mean Corpuscular Volume 94, Mean Corpuscular Hemoglobin 30.2, Mean Corpuscular Hemoglobin Concent 32.3, Red Cell Distribution Width 14.4, Platelet Count 146L, Mean Platelet Volume 6.0L, Neutrophils (%) (Auto) 62.9, Lymphocytes (%) (Auto) 22.5, Monocytes (%) (Auto) 11.1H, Eosinophils (%) (Auto) 2.8, Basophils (%) (Auto) 0.7, Sodium Level 141, Potassium Level 4.2, Chloride Level 106, Carbon Dioxide Level 30, Anion Gap 6, Blood Urea Nitrogen 43H, Creatinine 2.8H, Estimat Glomerular Filtration Rate , Glucose Level 89, Calcium Level 8.8 Height (Feet): 5 Height (Inches): 2.00 Weight (Pounds): 180 General Appearance: no apparent distress, alert Neurologic: oriented x 3, responsive, depressed affect Lee Ann Sutherland MD Jun 21, 2018 12:10
--- NOTE | 2018-06-21 12:17 | General Progress Note ---
Assessment/Plan Status: stable, progressing Assessment/Plan Anxiety d/o Ativan prn Seroquel prn Subjective Date patient seen: Jun 21, 2018 Neurologic/Psychiatric: Reports: anxiety, depressed, emotional problems Allergies: Coded Allergies: DIAZEPAM (Verified Allergy, Unknown, 10/07/11) HYDROCODONE (Verified Allergy, Unknown, 07/07/10) MINOXIDIL (Verified Allergy, Unknown, 07/07/10) NAME ALERT (Verified Adverse Reaction, Unknown, 07/13/08) Objective Last 24 Hour Vital Signs Date Time Temp Pulse Resp B/P (MAP) Pulse Ox O2 Delivery O2 Flow Rate FiO2 06/21/18 12:00 97.1 81 20 147/73 (97) 97 97.1 06/21/18 09:25 139/95 06/21/18 09:25 97 139/95 06/21/18 09:00 Room Air 06/21/18 08:00 97.7 97 22 139/95 (110) 96 97.7 06/21/18 04:00 97.7 80 20 124/67 (86) 96 97.7 06/21/18 00:00 98.0 82 19 135/70 (91) 94 98.0 06/20/18 21:00 Room Air 06/20/18 20:18 137/75 06/20/18 20:00 98.1 77 19 137/75 (95) 94 98.1 06/20/18 19:00 96 Nasal Cannula 2.0 28 06/20/18 19:00 86 16 Nasal Cannula 2.0 28 06/20/18 19:00 Nasal Cannula 2.0 28 06/20/18 16:00 82 06/20/18 16:00 96.3 77 19 116/69 (85) 93 96.3 Intake and Output 06/20/18 06/21/18 19:00 07:00 Intake Total 300 ml Output Total 250 ml 900 ml Balance 50 ml -900 ml Intake Oral 300 ml Output Urine Total 250 ml 900 ml Laboratory Tests 06/21/18 06:10: White Blood Count 5.9, Red Blood Count 3.59L, Hemoglobin 10.8L, Hematocrit 33.6L , Mean Corpuscular Volume 94, Mean Corpuscular Hemoglobin 30.2, Mean Corpuscular Hemoglobin Concent 32.3, Red Cell Distribution Width 14.4, Platelet Count 146L, Mean Platelet Volume 6.0L, Neutrophils (%) (Auto) 62.9, Lymphocytes (%) (Auto) 22.5, Monocytes (%) (Auto) 11.1H, Eosinophils (%) (Auto) 2.8, Basophils (%) (Auto) 0.7, Sodium Level 141, Potassium Level 4.2, Chloride Level 106, Carbon Dioxide Level 30, Anion Gap 6, Blood Urea Nitrogen 43H, Creatinine 2.8H, Estimat Glomerular Filtration Rate , Glucose Level 89, Calcium Level 8.8 Height (Feet): 5 Height (Inches): 2.00 Weight (Pounds): 180 General Appearance: no apparent distress, alert Neurologic: oriented x 3, responsive Lee Ann Sutherland MD Jun 21, 2018 12:17
[2018-06-21] MEDS ORDERED: BUMETANIDE1 MG ORAL (12:29)
--- NOTE | 2018-06-21 12:31 | Pulmonology Progress Note ---
Assessment/Plan Problems: (1) Acute on chronic renal failure (2) Asthma (3) HTN (hypertension) (4) GERD (gastroesophageal reflux disease) (5) Gout (6) DM (diabetes mellitus) Assessment/Plan wants to go home because she has birthday tomorrow so far - 6.5 liters of fluid balance diuresing well, on BUMEX check electrolytes titrate fio2 respiratory treatment prn check intake /output check renal US f/u by renal and cardiology Subjective ROS Limited/Unobtainable: No Constitutional: Reports: no symptoms HEENT: Repors: no symptoms Respiratory: Reports: no symptoms Cardiovascular: Reports: no symptoms Allergies: Coded Allergies: DIAZEPAM (Verified Allergy, Unknown, 10/07/11) HYDROCODONE (Verified Allergy, Unknown, 07/07/10) MINOXIDIL (Verified Allergy, Unknown, 07/07/10) NAME ALERT (Verified Adverse Reaction, Unknown, 07/13/08) Objective Last 24 Hour Vital Signs Date Time Temp Pulse Resp B/P (MAP) Pulse Ox O2 Delivery O2 Flow Rate FiO2 06/21/18 12:00 97.1 81 20 147/73 (97) 97 97.1 06/21/18 09:25 139/95 06/21/18 09:25 97 139/95 06/21/18 09:00 Room Air 06/21/18 08:00 97.7 97 22 139/95 (110) 96 97.7 06/21/18 04:00 97.7 80 20 124/67 (86) 96 97.7 06/21/18 00:00 98.0 82 19 135/70 (91) 94 98.0 06/20/18 21:00 Room Air 06/20/18 20:18 137/75 06/20/18 20:00 98.1 77 19 137/75 (95) 94 98.1 06/20/18 19:00 96 Nasal Cannula 2.0 28 06/20/18 19:00 86 16 Nasal Cannula 2.0 28 06/20/18 19:00 Nasal Cannula 2.0 28 06/20/18 16:00 82 06/20/18 16:00 96.3 77 19 116/69 (85) 93 96.3 Intake and Output 06/20/18 06/21/18 19:00 07:00 Intake Total 300 ml Output Total 250 ml 900 ml Balance 50 ml -900 ml Intake Oral 300 ml Output Urine Total 250 ml 900 ml Objective General Appearance: WD/WN HEENT: normocephalic Respiratory/Chest: chest wall non-tender, lungs clear Cardiovascular: normal peripheral pulses, normal rate Abdomen: normal bowel sounds, soft, non tender Extremities: no cyanosis, massive edema Microbiology Date/Time Source Procedure Growth Status 06/19/18 19:00 Blood Blood Culture - Preliminary NO GROWTH AFTER 24 HOURS Resulted 06/19/18 18:45 Blood Blood Culture - Preliminary NO GROWTH AFTER 24 HOURS Resulted 06/19/18 17:00 Indwelling Cath Urine Culture - Preliminary Resulted Laboratory Tests 06/21/18 06:10: White Blood Count 5.9, Red Blood Count 3.59L, Hemoglobin 10.8L, Hematocrit 33.6L , Mean Corpuscular Volume 94, Mean Corpuscular Hemoglobin 30.2, Mean Corpuscular Hemoglobin Concent 32.3, Red Cell Distribution Width 14.4, Platelet Count 146L, Mean Platelet Volume 6.0L, Neutrophils (%) (Auto) 62.9, Lymphocytes (%) (Auto) 22.5, Monocytes (%) (Auto) 11.1H, Eosinophils (%) (Auto) 2.8, Basophils (%) (Auto) 0.7, Sodium Level 141, Potassium Level 4.2, Chloride Level 106, Carbon Dioxide Level 30, Anion Gap 6, Blood Urea Nitrogen 43H, Creatinine 2.8H, Estimat Glomerular Filtration Rate , Glucose Level 89, Calcium Level 8.8 Current Medications Medications (Trade) Dose Ordered Sig/Liss Route PRN Reason Start Time Stop Time Status Last Admin Dose Admin Acetaminophen (Tylenol) 650 mg Q4H PRN ORAL Fever 06/20/18 20:51 07/16/18 20:50 Albuterol/ Ipratropium (Albuterol/ Ipratropium) 3 ml Q4H PRN HHN Shortness of Breath 06/20/18 22:00 06/21/18 17:59 Allopurinol (Zyloprim) 100 mg DAILY ORAL 06/21/18 09:00 07/17/18 08:59 06/21/18 09:25 Bumetanide (Bumex) 1 mg Q12HR ORAL 06/21/18 09:00 07/21/18 08:59 06/21/18 09:25 Chlorhexidine Gluconate (Katey-Hex 2%) 1 applic DAILY@2000 TOPIC 06/21/18 20:00 07/20/18 19:59 Dextrose (Dextrose 50%) STAT PRN IV Hypoglycemia 06/21/18 18:00 07/18/18 17:59 Dextrose (Dextrose 50%) 50 ml STAT PRN IV Hypoglycemia 06/21/18 18:00 07/18/18 17:59 Gabapentin (Neurontin) 400 mg DAILY ORAL 06/21/18 09:00 07/16/18 17:59 Heparin Sodium (Porcine) (Heparin 5000 units/ml) 5,000 units EVERY 12 HOURS SUBQ 06/21/18 09:00 07/21/18 08:59 Heparin Sodium/ Sodium Chloride (Heparin 2000 units/Ns 1000ml premix) 2,000 unit ONCE PRN INJ PICC 06/20/18 20:45 06/21/18 20:44 Hydroxyzine HCl (Atarax) 25 mg Q6H PRN ORAL Itching 06/20/18 21:13 07/20/18 21:12 06/21/18 03:34 Isosorbide Dinitrate (Isordil) 5 mg EVERY 12 HOURS ORAL 06/21/18 09:00 07/21/18 08:59 06/21/18 09:25 Lidocaine HCl (Xylocaine 1% 30ml) 30 ml ONCE PRN INJ PICC 06/20/18 20:45 06/21/18 20:44 Metoprolol Succinate (Toprol XL) 25 mg DAILY ORAL 06/21/18 09:00 07/17/18 08:59 06/21/18 09:25 Ondansetron HCl (Zofran ODT) 4 mg Q6H PRN ORAL Nausea & Vomiting 06/21/18 00:00 07/19/18 17:59 Ondansetron HCl (Zofran) 4 mg Q6H PRN IVP Nausea & Vomiting 06/21/18 00:00 07/18/18 17:59 Oxycodone HCl (Roxicodone) 30 mg Q8H PRN ORAL For Pain 06/21/18 02:00 06/23/18 17:59 06/21/18 10:20 Polyethylene Glycol (Miralax) 17 gm DAILYPRN PRN ORAL Constipation 06/21/18 18:00 9/10/18 17:59 Quetiapine Fumarate (SEROquel) 12.5 mg Q4H PRN ORAL agitation 06/20/18 22:00 07/18/18 17:59 Roberta Durán MD Jun 21, 2018 12:31
[2018-06-21] MEDS ORDERED: Miralax 17gm pkt ORAL PRN (18:00)
[2018-06-21] MEDS ORDERED: Dyna-Hex 2% Top Sol 2oz TOPIC SCH (20:00)
--- NOTE | 2018-06-22 12:52 | Discharge Summary ---
Discharge Summary Discharge Summary _ DATE OF ADMISSION: 06/16/2018 DATE OF DISCHARGE: 06/21/2018 REASON FOR ADMISSION: 83 years old female with past medical history significant for hypertension, asthma, diabetes mellitus, CVA 3, chronic kidney disease, presented with severe bilateral leg swelling and inability to ambulate. Primary care provider recommended patient to be evaluated in emergency department. Patient reported being on diuretic intermittently, with close supervision by filter cloth maker and primary care provider. \ She denied chest pain. She denied fever. She complained of constipation. Upon evaluation WBC 4.3 ,hemoglobin 11.3 ,hematocrit 35.8. BUN 40, creatinine 2.3. Troponin negative. Pro BNP 777 ECG revealed normal sinus rhythm, no acute ischemic changes. Initial chest x-rays showed small bilateral pleural effusion otherwise no acute changes. Patient admitted with the diagnoses of bilateral lower extremity edema , renal failure acute and chronic ,congestive heart failure, hypertension ,diabetes , asthma ,cerebrovascular disease, history of DVT. CONSULTANTS: business communications instructor dr. Hernandez pulmonary Dr. Durán filter cloth maker Dr. Flores psychiatrist [facility] COURSE: Patient admitted. Cardiology, pulmonology and nephrology consults closely followed. Echocardiogram revealed preserved ejection fraction 55-60%. No evidence of wall motion abnormality. No evidence of left ventricular hypertrophy. No evidence of pericardial or pleural effusion. Right ventricular systolic pressure of 18. Diastolic dysfunction grade 1. Wool Shearing Supervisor closely followed. Serial troponin 3 were negative . EKG revealed no acute ischemic changes. Patient was ruled out for acute ME. Patient started on diuresis with close monitoring of volumes and cardiorenal parameters. Beta carter and Isordil were continued. Blood pressure was closely monitored and managed with the current regimen. Supplemental oxygen titrated as needed to keep pulse oximetry above 92%. Pulmonary toilet was on standby as needed. No evidence of asthma exacerbation. Highway Maintenance Technician closely followed . Per filter cloth maker patient had acute on chronic renal failure. Renal parameters and electrolytes were closely monitored. Electrolytes were corrected as needed. Lasix IV was subsequently changwed to oral Bumex as per cardio recommendations. Allopurinol was continued . DVT prophylaxis provided. Patient was working with physical and occupational therapists. Fall precautions maintained. Pain management was addressed. Patient was able to ambulate. Bowel regimen instituted. Psychiatrist seen and evaluated patient , and diagnosed patient with anxiety disorder . Psychiatrist started patient on Seroquel and Ativan on as needed basis. Patient stabilized and was ready for discharge home. FINAL DIAGNOSES: Congestive heart failure Acute on chronic renal failure Bilateral lower extremity edema Hypertension Asthma Cerebrovascular disease with history of CVA 3 Osteoarthritis Morbid obesity History of DVT Gout GERD Anxiety disorder DISCHARGE MEDICATIONS: See Medication Reconciliation list. DISCHARGE INSTRUCTIONS: Patient was discharged home with home health services. Follow up with primary care provider in one week. I have been assigned to dictate discharge summary for this account. I was not involved in the patient's management. Princess Chavez NP Jun 22, 2018 12:52
== END 2018-06-21 13:45 | DRG 292 ==
LOC: EMR 11:21 → 2E 11:54 → EDBEDREQ 12:11 → 2E 06-17 22:56 → 4E 06-18 20:38 → 2E 06-19 17:05 → 4E 06-20 20:42
DX: I13.0 Hypertensive heart and chronic kidney disease with heart failure and stage 1 through stage 4 chronic kidney disease, or unspecified chronic kidney disease (principal); N17.9 Acute kidney failure, unspecified; I50.30 Unspecified diastolic (congestive) heart failure; N18.9 Chronic kidney disease, unspecified; Z88.8 Allergy status to other drugs, medicaments and biological substances; J45.909 Unspecified asthma, uncomplicated; Z86.73 Personal history of transient ischemic attack (TIA), and cerebral infarction without residual deficits; E66.01 Morbid (severe) obesity due to excess calories; M19.90 Unspecified osteoarthritis, unspecified site; Z86.718 Personal history of other venous thrombosis and embolism; K21.9 Gastro-esophageal reflux disease without esophagitis; F41.9 Anxiety disorder, unspecified; E11.22 Type 2 diabetes mellitus with diabetic chronic kidney disease; I42.9 Cardiomyopathy, unspecified; Z86.14 Personal history of Methicillin resistant Staphylococcus aureus infection; Z85.028 Personal history of other malignant neoplasm of stomach; Z90.49 Acquired absence of other specified parts of digestive tract; M10.9 Gout, unspecified
CPT/HCPCS: 36415; 71045; 80048; 80053; 80069; 82550; 83880; 83970; 84484; 84550; 85025; 87040; 87081; 87086; 87181; 93005; 93306; 93970; 94664; 94760; J2405

== ENCOUNTER 2019-03-17 11:40 | Outpatient (CLI) | payer MEDICARE, MEDICAID ==
[~2019-03-17 11:40] MED LIST changes: +BUMETANIDE1 MG ORAL
[2019-03-17 12:20] LABS: BASOPHILS % (AUTO) 1.5 % (0.0-2.0); EOSINOPHILS % (AUTO) 3.8 % (0.0-3.0); HEMATOCRIT 35.8 % (37.0-47.0); LYMPHOCYTES % (AUTO) 26.7 % (20.0-45.0); MEAN CORPUSCULAR VOLUME 96 FL (80-99); MONOCYTES % (AUTO) 10.9 % (1.0-10.0); NEUTROPHILS % (AUTO) 57.1 % (45.0-75.0); PLATELET COUNT 186 K/UL (150-450); RED BLOOD COUNT 3.72 M/UL (4.20-5.40); WHITE BLOOD COUNT 4.5 K/UL (4.8-10.8)
[2019-03-17 12:32] LABS: INR 1.1 (0.9-1.1)
[2019-03-17 12:47] LABS: ALANINE AMINOTRANSFERASE 18 U/L (12-78); ALBUMIN 3.1 G/DL (3.4-5.0); ALBUMIN/GLOBULIN RATIO 0.6 (1.0-2.7); ALKALINE PHOSPHATASE 148 U/L (46-116); ANION GAP 7 mmol/L (5-15); ASPARTATE AMINO TRANSFERASE 25 U/L (15-37); BILIRUBIN,TOTAL 0.3 MG/DL (0.2-1.0); BLOOD UREA NITROGEN 34 mg/dL (7-18); CALCIUM 9.2 MG/DL (8.5-10.1); CARBON DIOXIDE 28 MMOL/L (21-32); CHLORIDE 106 MMOL/L (98-107); CHOLESTEROL 122 MG/DL (< 200); CREATININE 2.5 MG/DL (0.55-1.30); HDL CHOLESTEROL 77 MG/DL (40-60); POTASSIUM 4.8 MMOL/L (3.5-5.1); SODIUM 140 MMOL/L (136-145); TRIGLYCERIDES 70 MG/DL (30-150)
== END 2019-03-17 13:40 | disposition home or self-care (01) ==
LOC: LAB 11:40
DX: I82.409 Acute embolism and thrombosis of unspecified deep veins of unspecified lower extremity (principal); R60.0 Localized edema; N18.3 Chronic kidney disease, stage 3 (moderate)
CPT/HCPCS: 36415; 80053; 80061; 82306; 82607; 82746; 83036; 84443; 85025; 85610; 85730

== ENCOUNTER 2019-04-10 11:18 | Outpatient (CLI) | payer MEDICARE, MEDICAID ==
[2019-04-10 12:08] LABS: BASOPHILS % (AUTO) 1.4 % (0.0-2.0); EOSINOPHILS % (AUTO) 4.1 % (0.0-3.0); HEMATOCRIT 37.7 % (37.0-47.0); HEMOGLOBIN 11.5 G/DL (12.0-16.0); MEAN CORPUSCULAR VOLUME 95 FL (80-99); MONOCYTES % (AUTO) 11.9 % (1.0-10.0); NEUTROPHILS % (AUTO) 58.6 % (45.0-75.0); PLATELET COUNT 186 K/UL (150-450); RED BLOOD COUNT 3.97 M/UL (4.20-5.40); RED CELL DISTRIBUTION WIDTH 14.4 % (11.6-14.8); WHITE BLOOD COUNT 4.6 K/UL (4.8-10.8)
[2019-04-10 12:45] LABS: ALANINE AMINOTRANSFERASE 22 U/L (12-78); ALBUMIN/GLOBULIN RATIO 0.5 (1.0-2.7); ALKALINE PHOSPHATASE 167 U/L (46-116); ANION GAP 7 mmol/L (5-15); ASPARTATE AMINO TRANSFERASE 29 U/L (15-37); BILIRUBIN,TOTAL 0.3 MG/DL (0.2-1.0); BLOOD UREA NITROGEN 40 mg/dL (7-18); CARBON DIOXIDE 28 MMOL/L (21-32); CHLORIDE 104 MMOL/L (98-107); CHOLESTEROL 122 MG/DL (< 200); CREATININE 2.5 MG/DL (0.55-1.30); HDL CHOLESTEROL 67 MG/DL (40-60); POTASSIUM 4.4 MMOL/L (3.5-5.1); SODIUM 139 MMOL/L (136-145); TRIGLYCERIDES 75 MG/DL (30-150)
== END 2019-04-10 13:18 | disposition home or self-care (01) ==
LOC: LAB 11:18
DX: I12.9 Hypertensive chronic kidney disease with stage 1 through stage 4 chronic kidney disease, or unspecified chronic kidney disease (principal); N18.9 Chronic kidney disease, unspecified; D63.1 Anemia in chronic kidney disease
CPT/HCPCS: 36415; 80053; 80061; 82306; 82607; 82746; 83036; 84443; 85025; 85610; 85730

== ENCOUNTER 2019-08-11 11:28 | Outpatient (CLI) | payer MEDICARE, MEDICAID ==
[2019-08-11 12:12] LABS: BASOPHILS % (AUTO) 1.3 % (0.0-2.0); EOSINOPHILS % (AUTO) 4.8 % (0.0-3.0); HEMATOCRIT 33.6 % (37.0-47.0); HEMOGLOBIN 10.4 G/DL (12.0-16.0); LYMPHOCYTES % (AUTO) 23.2 % (20.0-45.0); MEAN CORPUSCULAR VOLUME 96 FL (80-99); MONOCYTES % (AUTO) 12.9 % (1.0-10.0); NEUTROPHILS % (AUTO) 57.8 % (45.0-75.0); PLATELET COUNT 161 K/UL (150-450); RED BLOOD COUNT 3.51 M/UL (4.20-5.40); RED CELL DISTRIBUTION WIDTH 14.3 % (11.6-14.8); WHITE BLOOD COUNT 3.9 K/UL (4.8-10.8)
[2019-08-11 13:44] LABS: ALANINE AMINOTRANSFERASE 27 U/L (12-78); ALBUMIN/GLOBULIN RATIO 0.6 (1.0-2.7); ALKALINE PHOSPHATASE 151 U/L (46-116); ANION GAP 11 mmol/L (5-15); ASPARTATE AMINO TRANSFERASE 28 U/L (15-37); BILIRUBIN,TOTAL 0.2 MG/DL (0.2-1.0); BLOOD UREA NITROGEN 37 mg/dL (7-18); CALCIUM 8.6 MG/DL (8.5-10.1); CARBON DIOXIDE 23 MMOL/L (21-32); CHLORIDE 107 MMOL/L (98-107); CHOLESTEROL 107 MG/DL (< 200); CREATININE 2.9 MG/DL (0.55-1.30); HDL CHOLESTEROL 62 MG/DL (40-60); PHOSPHORUS 4.3 MG/DL (2.5-4.9); POTASSIUM 4.8 MMOL/L (3.5-5.1); SODIUM 140 MMOL/L (136-145); TRIGLYCERIDES 71 MG/DL (30-150)
== END 2019-08-11 13:28 | disposition home or self-care (01) ==
LOC: LAB 11:28
DX: N39.0 Urinary tract infection, site not specified (principal); E78.00 Pure hypercholesterolemia, unspecified; I12.9 Hypertensive chronic kidney disease with stage 1 through stage 4 chronic kidney disease, or unspecified chronic kidney disease; N18.9 Chronic kidney disease, unspecified
CPT/HCPCS: 36415; 80053; 80061; 82306; 82746; 83735; 84100; 85025

== ENCOUNTER 2019-12-25 07:18 | Inpatient (IN) | payer MEDICARE, MEDICAID ==
[~2019-12-25] VITALS: Ht 162.6 cm; Wt 83.5 kg
[2019-12-25 07:40] VITALS: BP 161/72
--- NOTE | 2019-12-25 07:40 | NUR ---
ED Nurse Note: Patient CARLOS from [facility] d/t n/v/d since yesterday after eating a chicken sandwich. Patient states she had diarrhea about 7 timnes since yesterday that was clear with small food in it, and emesis 3 times that was also clear. Patient ambulatory with one person assist. Bedside commode placed at bedside. Patient is AxO x 4, no s/s of acute distress. Blood sent to lab.
--- NOTE | 2019-12-25 07:41 | Emergency Room Report ---
History of Present Illness General Chief Complaint: Nausea, Vomiting, and Diarrhea Source: Patient Present Illness HPI Patient presents with complaints of nausea vomiting and diarrhea starting this morning reports that last night she had a chicken sandwich at the facility she usually does not eat there However this morning began having vomiting episode Also had diarrhea Some mild diffuse abdominal cramping with this Denies any fevers or chills denies any chest pain denies any back or flank pain denies any dysuria frequency Allergies: Coded Allergies: DIAZEPAM (Verified Allergy, Unknown, 10/07/11) HYDROCODONE (Verified Allergy, Unknown, 07/07/10) MINOXIDIL (Verified Allergy, Unknown, 07/07/10) PENICILLINS (Unverified Allergy, Unknown, 12/25/19) NAME ALERT (Verified Adverse Reaction, Unknown, 07/13/08) Patient History Past Medical History: see triage record Reviewed Nursing Documentation: PMH: Agreed; PSxH: Agreed Nursing Documentation-PMH Past Medical History: No History, Except For Hx Hypertension: Yes Hx Asthma: Yes Hx Diabetes: Yes Hx Cancer: No Hx Neurological Problems: Yes Hx Cerebrovascular Accident: Yes Hx Syncope: No Hx Weakness: Yes Review of Systems All Other Systems: negative except mentioned in HPI Physical Exam Vital Signs Date Time Temp Pulse Resp B/P (MAP) Pulse Ox O2 Delivery O2 Flow Rate FiO2 12/25/19 07:16 99.7 92 14 161/72 (101) 96 Room Air Sp02 EP Interpretation: reviewed, normal General Appearance: mild distress - Actively nauseated Head: normocephalic, atraumatic Eyes: bilateral eye PERRL, bilateral eye EOMI ENT: hearing grossly normal, EOM grossly intact Neck: supple Respiratory: lungs clear, no respiratory distress, no retraction Cardiovascular #1: regular rate, rhythm Gastrointestinal: non tender, soft Musculoskeletal: normal inspection Neurologic: alert, oriented x3 Psychiatric: normal inspection Skin: no rash Lymphatic: no adenopathy Medical Decision Making Diagnostic Impression: Primary Impression: Nausea, vomiting, and diarrhea Additional Impression: HTN (hypertension) ER Course With the history exam and presentation, multiple differentials considered, including but not limited to appendicitis, gastritis, cholecystitis, diverticulitis Patient had extensive blood work initiated Potassium level was mildly elevated however I feel this is secondary to mild dehydration and possible collection error Patient has imaging obtained as well at this time remaind improved however will require further inpatient care Labs Test 2/17/20 08:40 12/25/19 08:50 12/26/19 06:10 12/26/19 06:30 Urine Color Pale yellow Urine Appearance Clear Urine pH 8 (4.5-8.0) Urine Specific [place] 1.010 (1.005-1.035) Urine Protein 2+ (NEGATIVE) Urine Glucose (UA) Negative (NEGATIVE) Urine Ketones Negative (NEGATIVE) Urine Blood 2+ (NEGATIVE) Urine Nitrite Negative (NEGATIVE) Urine Bilirubin Negative (NEGATIVE) Urine Urobilinogen Normal MG/DL (0.0-1.0) Urine Leukocyte Esterase 3+ (NEGATIVE) Urine RBC 2-4 /HPF (0 - 2) Urine WBC 5-10 /HPF (0 - 2) Urine Squamous Epithelial Cells Few /LPF (NONE/OCC) Urine Bacteria Few /HPF (NONE) White Blood Count 5.7 K/UL (4.8-10.8) 3.2 K/UL (4.8-10.8) Red Blood Count 3.92 M/UL (4.20-5.40) 3.20 M/UL (4.20-5.40) Hemoglobin 11.5 G/DL (12.0-16.0) 9.4 G/DL (12.0-16.0) Hematocrit 36.5 % (37.0-47.0) 29.6 % (37.0-47.0) Mean Corpuscular Volume 93 FL (80-99) 93 FL (80-99) Mean Corpuscular Hemoglobin 29.4 PG (27.0-31.0) 29.3 PG (27.0-31.0) Mean Corpuscular Hemoglobin Concent 31.5 G/DL (32.0-36.0) 31.7 G/DL (32.0-36.0) Red Cell Distribution Width 14.2 % (11.6-14.8) 14.3 % (11.6-14.8) Platelet Count 175 K/UL (150-450) 143 K/UL (150-450) Mean Platelet Volume 5.5 FL (6.5-10.1) 5.0 FL (6.5-10.1) Neutrophils (%) (Auto) % (45.0-75.0) % (45.0-75.0) Lymphocytes (%) (Auto) % (20.0-45.0) % (20.0-45.0) Monocytes (%) (Auto) % (1.0-10.0) % (1.0-10.0) Eosinophils (%) (Auto) % (0.0-3.0) % (0.0-3.0) Basophils (%) (Auto) % (0.0-2.0) % (0.0-2.0) Differential Total Cells Counted 100 100 Neutrophils % (Manual) 89 % (45-75) 74 % (45-75) Lymphocytes % (Manual) 7 % (20-45) 15 % (20-45) Monocytes % (Manual) 4 % (1-10) 10 % (1-10) Eosinophils % (Manual) 0 % (0-3) 1 % (0-3) Basophils % (Manual) 0 % (0-2) 0 % (0-2) Band Neutrophils 0 % (0-8) 0 % (0-8) Platelet Estimate Adequate Decreased Platelet Morphology Normal Normal Anisocytosis 1+ Sodium Level 142 MMOL/L (136-145) 142 MMOL/L (136-145) Potassium Level 5.3 MMOL/L (3.5-5.1) 4.3 MMOL/L (3.5-5.1) Chloride Level 108 MMOL/L (98-107) 110 MMOL/L (98-107) Carbon Dioxide Level 25 MMOL/L (21-32) 25 MMOL/L (21-32) Anion Gap 9 mmol/L (5-15) 7 mmol/L (5-15) Blood Urea Nitrogen 30 mg/dL (7-18) 35 mg/dL (7-18) Creatinine 2.4 MG/DL (0.55-1.30) 2.5 MG/DL (0.55-1.30) Estimat Glomerular Filtration Rate 23.1 mL/min (>60) 22.2 mL/min (>60) Glucose Level 121 MG/DL (74-106) 91 MG/DL (74-106) Hemoglobin A1c 6.3 % (4.3-6.0) Lactic Acid Level 1.60 mmol/L (0.4-2.0) Calcium Level 8.6 MG/DL (8.5-10.1) 8.6 MG/DL (8.5-10.1) Total Bilirubin 0.3 MG/DL (0.2-1.0) Aspartate Amino Transf (AST/SGOT) 29 U/L (15-37) Alanine Aminotransferase (ALT/SGPT) 23 U/L (12-78) Alkaline Phosphatase 139 U/L (46-116) Total Creatine Kinase 58 U/L (26-308) 45 U/L (26-308) Creatine Kinase MB < 0.5 NG/ML (0.0-3.6) Creatine Kinase MB Relative Index 0.8 Total Protein 8.2 G/DL (6.4-8.2) Albumin 2.7 G/DL (3.4-5.0) Globulin 5.5 g/dL Albumin/Globulin Ratio 0.5 (1.0-2.7) Triglycerides Level 47 MG/DL (30-150) Cholesterol Level 98 MG/DL (< 200) LDL Cholesterol 27 mg/dL (<100) HDL Cholesterol 64 MG/DL (40-60) Cholesterol/HDL Ratio 1.5 (3.3-4.4) Lipase 304 U/L (73-393) Magnesium Level 1.7 MG/DL (1.8-2.4) Uric Acid 8.6 MG/DL (2.6-7.2) Test 12/26/19 19:20 12/26/19 20:45 12/27/19 06:48 12/28/19 05:54 Stool Occult Blood Negative (NEGATIVE) Urine Color Pale yellow Urine Appearance Clear Urine pH 6 (4.5-8.0) Urine Specific [place] 1.015 (1.005-1.035) Urine Protein Negative (NEGATIVE) Urine Glucose (UA) Negative (NEGATIVE) Urine Ketones Negative (NEGATIVE) Urine Blood 1+ (NEGATIVE) Urine Nitrite Negative (NEGATIVE) Urine Bilirubin Negative (NEGATIVE) Urine Urobilinogen Normal MG/DL (0.0-1.0) Urine Leukocyte Esterase 3+ (NEGATIVE) Urine RBC 2-4 /HPF (0 - 2) Urine WBC 10-15 /HPF (0 - 2) Urine Squamous Epithelial Cells Moderate /LPF (NONE/OCC) Urine Bacteria Many /HPF (NONE) Urine Eosinophils None seen (NONE SEEN) Urine Random Sodium 102 mmol/L (20-110) Urine Potassium Timed 17 mmol/L (12-62) White Blood Count 3.8 K/UL (4.8-10.8) 3.3 K/UL (4.8-10.8) Red Blood Count 3.31 M/UL (4.20-5.40) 3.52 M/UL (4.20-5.40) Hemoglobin 9.8 G/DL (12.0-16.0) 10.3 G/DL (12.0-16.0) Hematocrit 30.7 % (37.0-47.0) 32.2 % (37.0-47.0) Mean Corpuscular Volume 93 FL (80-99) 92 FL (80-99) Mean Corpuscular Hemoglobin 29.7 PG (27.0-31.0) 29.3 PG (27.0-31.0) Mean Corpuscular Hemoglobin Concent 32.0 G/DL (32.0-36.0) 31.9 G/DL (32.0-36.0) Red Cell Distribution Width 14.1 % (11.6-14.8) 14.2 % (11.6-14.8) Platelet Count 151 K/UL (150-450) 159 K/UL (150-450) Mean Platelet Volume 5.2 FL (6.5-10.1) 5.0 FL (6.5-10.1) Neutrophils (%) (Auto) 58.4 % (45.0-75.0) % (45.0-75.0) Lymphocytes (%) (Auto) 23.5 % (20.0-45.0) % (20.0-45.0) Monocytes (%) (Auto) 13.6 % (1.0-10.0) % (1.0-10.0) Eosinophils (%) (Auto) 3.7 % (0.0-3.0) % (0.0-3.0) Basophils (%) (Auto) 0.9 % (0.0-2.0) % (0.0-2.0) Erythrocyte Sedimentation Rate 73 MM/HR (0-30) Reticulocyte Count 0.2 % (0.5-2.0) Prothrombin Time 11.2 SEC (9.30-11.50) Prothromb Time International Ratio 1.1 (0.9-1.1) Activated Partial Thromboplast Time 30 SEC (23-33) Sodium Level 143 MMOL/L (136-145) 144 MMOL/L (136-145) Potassium Level 4.3 MMOL/L (3.5-5.1) 4.1 MMOL/L (3.5-5.1) Chloride Level 110 MMOL/L (98-107) 112 MMOL/L (98-107) Carbon Dioxide Level 19 MMOL/L (21-32) 24 MMOL/L (21-32) Anion Gap 14 mmol/L (5-15) 8 mmol/L (5-15) Blood Urea Nitrogen 30 mg/dL (7-18) 29 mg/dL (7-18) Creatinine 2.1 MG/DL (0.55-1.30) 2.0 MG/DL (0.55-1.30) Estimat Glomerular Filtration Rate 27.0 mL/min (>60) 28.6 mL/min (>60) Glucose Level 81 MG/DL (74-106) 89 MG/DL (74-106) Calcium Level 8.7 MG/DL (8.5-10.1) 8.6 MG/DL (8.5-10.1) Phosphorus Level 3.2 MG/DL (2.5-4.9) Magnesium Level 1.6 MG/DL (1.8-2.4) Iron Level 20 ug/dL (50-175) Total Iron Binding Capacity 202 ug/dL (250-450) Percent Iron Saturation 10 % (15-50) Unsaturated Iron Binding 182 ug/dL (112-346) Lactate Dehydrogenase 135 U/L (81-234) C-Reactive Protein, Quantitative 2.6 mg/dL (0.00-0.90) Vitamin B12 Level 202 PG/ML (193-986) Folate 17.0 NG/ML (8.6-58.9) Rhythm Strip Diag. Results EP Interpretation: yes Rate: 88 Rhythm: NSR, no PVC's, no ectopy Chest X-Ray Diagnostic Results Chest X-Ray Diagnostic Results : Chest X-Ray Ordered: Yes # of Views/Limited/Complete: 1 View Indication: Chest Pain EP Interpretation: Yes Interpretation: no consolidation, no pneumothorax, no acute cardiopulmonary disease - Mild left effusion Impression: Other - Small left effusion Electronically Signed by: Ana Greene, DO CT/MRI/US Diagnostic Results CT/MRI/US Diagnostic Results : Impression CT abdomen pelvisImpression: Limited assessment of the GI tract, due to lack of enteric contrast administration No definite acute abnormality Status post cholecystectomy. Mild dilatation of the extrahepatic bile ducts, probably related to age and postcholecystectomy state as no downstream obstructive lesion is demonstrated. Nonetheless, recommend correlation with liver function tests. Basilar pulmonary interstitial septal thickening, scarring, atelectasis and bronchiectasis. Probably on the basis of chronic interstitial disease. Correlate with clinical history and findings Other findings as noted, including hiatal hernia, anterior abdominal wall calcifications, prior hysterectomy, degenerative spondylosis Last Vital Signs Date Time Temp Pulse Resp B/P (MAP) Pulse Ox O2 Delivery O2 Flow Rate FiO2 12/25/19 07:16 99.7 92 14 161/72 (101) 96 Room Air Ana Greene DO Dec 25, 2019 07:41
--- NOTE | 2019-12-25 08:44 | NUR ---
ED Nurse Note: FIRST ASSIST AT THE BEDSIDE DRAWING BLOOD
[2019-12-25 09:23] LABS: HEMATOCRIT 36.5 % (37.0-47.0); HEMOGLOBIN 11.5 G/DL (12.0-16.0); MEAN CORPUSCULAR VOLUME 93 FL (80-99); PLATELET COUNT 175 K/UL (150-450); RED BLOOD COUNT 3.92 M/UL (4.20-5.40); RED CELL DISTRIBUTION WIDTH 14.2 % (11.6-14.8); WHITE BLOOD COUNT 5.7 K/UL (4.8-10.8)
[2019-12-25 09:29] LABS: ANION GAP 9 mmol/L (5-15); BLOOD UREA NITROGEN 30 mg/dL (7-18); CALCIUM 8.6 MG/DL (8.5-10.1); CARBON DIOXIDE 25 MMOL/L (21-32); CHLORIDE 108 MMOL/L (98-107); CREATININE 2.4 MG/DL (0.55-1.30); POTASSIUM 5.3 MMOL/L (3.5-5.1); SODIUM 142 MMOL/L (136-145)
[2019-12-25 09:44] LABS: ALANINE AMINOTRANSFERASE 23 U/L (12-78); ALBUMIN 2.7 G/DL (3.4-5.0); ALBUMIN/GLOBULIN RATIO 0.5 (1.0-2.7); ALKALINE PHOSPHATASE 139 U/L (46-116); ASPARTATE AMINO TRANSFERASE 29 U/L (15-37); BILIRUBIN,TOTAL 0.3 MG/DL (0.2-1.0); CKMB < 0.5 NG/ML (0.0-3.6); CREATINE KINASE 58 U/L (26-308)
[2019-12-25 10:04] LABS: APPEARANCE,URINE CLEAR; BILIRUBIN, URINE NEGATIVE (NEGATIVE); COLOR,URINE PALE YELLOW; GLUCOSE, URINE (UA) NEGATIVE (NEGATIVE); KETONES,URINE NEGATIVE (NEGATIVE); LEUKOCYTE ESTERASE ,URINE 3+ (NEGATIVE); NITRITE,URINE NEGATIVE (NEGATIVE); PH,URINE 8 (4.5-8.0); PROTEIN,URINE 2+ (NEGATIVE); UROBILINOGEN,URINE NORMAL MG/DL (0.0-1.0)
--- NOTE | 2019-12-25 10:44 | Diagnostic Imaging Report ---
. Indication: Chest pain Technique: One view of the chest Comparison: 06/20/2018 Findings: Bilateral perihilar linear bands are unchanged, and therefore most likely represent areas of scarring. Mild interstitial prominence bilaterally appears similar to the prior exam and is likely on the basis of senescent change. The lungs pleural spaces are otherwise clear. The heart size is upper limits normal. There is slight blunting of left costophrenic sulcus, may indicate a small pleural effusion Impression: Suspect small left pleural effusion No definite acute process otherwise
--- NOTE | 2019-12-25 11:21 | NUR ---
ED Nurse Note: REPORT GIVEN TO SOPHIA LOVING
--- NOTE | 2019-12-25 11:32 | NUR ---
ED Nurse Note: REPORTED TO DR. Rivera THE POTASSIUM LEVEL OF 5.3 AND HE'S OK FOR PT. TO GO UP WITH IT
[2019-12-25] MEDS ORDERED: ASPIR-TRIN325 M1 ORAL (11:39)
--- NOTE | 2019-12-25 11:39 | NUR ---
ED Nurse Note: SPOKE WITH TAE FROM [facility] TO VERIFY THE MEDLIST
--- NOTE | 2019-12-25 11:45 | NUR ---
HAND-OFF: Report given to SOPHIA LOVING. PT. IS AWARE OF THE ADMISSION
[2019-12-25] MEDS ORDERED: Albuterol/Ipratropium 3ml neb HHN PRN (12:15)
--- NOTE | 2019-12-25 12:18 | Consultation ---
History of Present Illness General Date patient seen: Dec 25, 2019 Time patient seen: 11:45 Chief Complaint: Nausea, Vomiting, and Diarrhea Referring physician: dr Villanueva Reason for Consultation: [facility]/critical care Present Illness HPI 84 years old female with past medical history of hypertension, diabetes mellitus , CVA, resident of assisted living, had a chicken sandwich last night. Patient usually does not eat at the facility but and has her own food but that time she ate and started to have nausea vomiting and diarrhea. Patient also reported diffuse mild abdominal cramping. No fever or chills. No chest pain. No shortness of breath. No dysuria. Upon evaluation emergency department patient had low-grade fever blood pressure was elevated 161/72 laboratory work-up revealed no leukocytosis mild anemia hemoglobin 11.5 hematocrit 36.5. Potassium 5.3. BUN 30, creatinine 2.4. Glucose 121. Lactic acid 1.6. Stable LFT. Troponin negative. Albumin 2.7. Lipase within normal limits. Urinalysis revealed +2 protein but no evidence of okay borderline pyuria 5-10 no evidence and no bacteria. Chest x-ray revealed suspected small left pleural effusion. No definite acute process otherwise. CT of the abdomen and pelvis demonstrated no definite acute abnormality. Patient subsequently admitted to medical surgical floor for further management. Allergies: Coded Allergies: DIAZEPAM (Verified Allergy, Unknown, 10/07/11) HYDROCODONE (Verified Allergy, Unknown, 07/07/10) MINOXIDIL (Verified Allergy, Unknown, 07/07/10) PENICILLINS (Unverified Allergy, Unknown, 12/25/19) NAME ALERT (Verified Adverse Reaction, Unknown, 07/13/08) Medication History Scheduled Allopurinol* (Allopurinol*), 100 MG ORAL DAILY, (Reported) Aspirin* (Aspir-Malissa*), 325 MG ORAL DAILY, (Reported) Bumetanide* (Bumetanide*), 1 MG ORAL Q12HR Dexlansoprazole (Dexilant), 60 MG ORAL DAILY, (Reported) Gabapentin* (Gabapentin*), 300 MG ORAL QID, (Reported) Metoprolol Succinate* (Metoprolol Succinate*), 25 MG ORAL DAILY, (Reported) Scheduled PRN Oxycodone Hcl* (Oxycodone Hcl*), 30 MG ORAL Q8H PRN for For Pain, (Reported) Discontinued Medications Amlodipine/Atorvastatin 2.5-40 Mg (Amlodipine-Atorvast 2.5-40 Mg), 1 TAB ORAL DAILY, (Reported) Discontinued Reason: Therapy completed Calcitriol (Calcitriol), 0.25 MCG PO 3XW, (Reported) Discontinued Reason: Therapy completed Cephalexin* (Keflex*), 250 MG ORAL EVERY 6 HOURS Discontinued Reason: Therapy completed Fluticasone/Salmeterol (Advair 100-50 Diskus), 1 PUFF INH EVERY 12 HOURS, ( Reported) Discontinued Reason: Therapy completed Furosemide* (Lasix*), 40 MG ORAL TWICE A DAY, (Reported) Discontinued Reason: Therapy completed Furosemide* (Lasix*), 40 MG ORAL DAILY, (Reported) Discontinued Reason: Therapy completed Isosorbide Dinitrate* (Isordil*), 5 MG ORAL EVERY 12 HOURS, (Reported) Discontinued Reason: Therapy completed Lidocaine (Lidocaine), 700 MG TP DAILY, (Reported) Discontinued Reason: Therapy completed Nitrofurantoin Monohyd/M-Cryst (Nitrofurantoin Bremer-Mcr 100 mg), 100 MG ORAL Q12H Discontinued Reason: Therapy completed Oxybutynin Chloride (Oxybutynin Chloride), 15 MG ORAL, (Reported) Discontinued Reason: Therapy completed Patient History Limited by: age History Provided By: Patient, Medical Record Healthcare decision maker Resuscitation status Advanced Directive on File Past Medical/Surgical History Past Medical/Surgical History: (1) Cerebral vascular disease (2) DM (diabetes mellitus) (3) Anemia (4) Gastric cancer (5) HTN (hypertension) (6) Asthma (7) Cardiomyopathy (8) Gout Review of Systems Constitutional: Reports: weakness Eye: Reports: no symptoms ENT: Reports: no symptoms Respiratory: Reports: other - asthma Cardiovascular: Reports: other - HTN, CHF Gastrointestinal: Reports: see HPI Genitourinary: Reports: no symptoms Musculoskeletal: Reports: back pain, muscle stiffness Skin: Reports: no symptoms Psychiatric: Reports: no symptoms Neurological: Reports: other - hx xxof CVA Endocrine: Reports: other - DM Hematologic/Lymphatic: Reports: no symptoms Physical Exam General Appearance: other - awake, alert, forgetful AA female in NAD Lines, tubes and drains: peripheral HEENT: normocephalic, atraumatic, anicteric, mucous membranes moist, PERRL Neck: supple Respiratory/Chest: lungs clear, no respiratory distress, respiratory distress Cardiovascular/Chest: normal peripheral pulses, normal rate, no JVD Abdomen: normal bowel sounds, non tender, soft Extremities: normal range of motion, normal capillary refill, pitting - +1 edema Neurologic: alert, responsive Musculoskeletal: normal muscle bulk Last 24 Hour Vital Signs Date Time Temp Pulse Resp B/P (MAP) Pulse Ox O2 Delivery O2 Flow Rate FiO2 12/25/19 11:45 98.0 85 17 124/85 98 Room Air 12/25/19 07:40 99.7 84 14 161/72 96 Room Air 12/25/19 07:16 99.7 92 14 161/72 (101) 96 Room Air Laboratory Tests Test 12/25/19 05:31 12/25/19 08:40 12/25/19 08:50 Troponin I 0.024 ng/mL (0.000-0.056) Urine Color Pale yellow Urine Appearance Clear Urine pH 8 (4.5-8.0) Urine Specific [place] 1.010 (1.005-1.035) Urine Protein 2+ (NEGATIVE) H Urine Glucose (UA) Negative (NEGATIVE) Urine Ketones Negative (NEGATIVE) Urine Blood 2+ (NEGATIVE) H Urine Nitrite Negative (NEGATIVE) Urine Bilirubin Negative (NEGATIVE) Urine Urobilinogen Normal MG/DL (0.0-1.0) Urine Leukocyte Esterase 3+ (NEGATIVE) H Urine RBC 2-4 /HPF (0 - 2) H Urine WBC 5-10 /HPF (0 - 2) H Urine Squamous Epithelial Cells Few /LPF (NONE/OCC) Urine Bacteria Few /HPF (NONE) White Blood Count 5.7 K/UL (4.8-10.8) Red Blood Count 3.92 M/UL (4.20-5.40) L Hemoglobin 11.5 G/DL (12.0-16.0) L Hematocrit 36.5 % (37.0-47.0) L Mean Corpuscular Volume 93 FL (80-99) Mean Corpuscular Hemoglobin 29.4 PG (27.0-31.0) Mean Corpuscular Hemoglobin Concent 31.5 G/DL (32.0-36.0) L Red Cell Distribution Width 14.2 % (11.6-14.8) Platelet Count 175 K/UL (150-450) Mean Platelet Volume 5.5 FL (6.5-10.1) L Neutrophils (%) (Auto) % (45.0-75.0) Lymphocytes (%) (Auto) % (20.0-45.0) Monocytes (%) (Auto) % (1.0-10.0) Eosinophils (%) (Auto) % (0.0-3.0) Basophils (%) (Auto) % (0.0-2.0) Differential Total Cells Counted 100 Neutrophils % (Manual) 89 % (45-75) H Lymphocytes % (Manual) 7 % (20-45) L Monocytes % (Manual) 4 % (1-10) Eosinophils % (Manual) 0 % (0-3) Basophils % (Manual) 0 % (0-2) Band Neutrophils 0 % (0-8) Platelet Estimate Adequate Platelet Morphology Normal Anisocytosis 1+ Sodium Level 142 MMOL/L (136-145) Potassium Level 5.3 MMOL/L (3.5-5.1) H Chloride Level 108 MMOL/L (98-107) H Carbon Dioxide Level 25 MMOL/L (21-32) Anion Gap 9 mmol/L (5-15) Blood Urea Nitrogen 30 mg/dL (7-18) H Creatinine 2.4 MG/DL (0.55-1.30) H Estimat Glomerular Filtration Rate 23.1 mL/min (>60) Glucose Level 121 MG/DL (74-106) H Lactic Acid Level 1.60 mmol/L (0.4-2.0) Calcium Level 8.6 MG/DL (8.5-10.1) Total Bilirubin 0.3 MG/DL (0.2-1.0) Aspartate Amino Transf (AST/SGOT) 29 U/L (15-37) Alanine Aminotransferase (ALT/SGPT) 23 U/L (12-78) Alkaline Phosphatase 139 U/L (46-116) H Total Creatine Kinase 58 U/L (26-308) Creatine Kinase MB < 0.5 NG/ML (0.0-3.6) Creatine Kinase MB Relative Index 0.8 Total Protein 8.2 G/DL (6.4-8.2) Albumin 2.7 G/DL (3.4-5.0) L Globulin 5.5 g/dL Albumin/Globulin Ratio 0.5 (1.0-2.7) L Lipase 304 U/L (73-393) Height (Feet): 5 Height (Inches): 4.00 Weight (Pounds): 130 Assessment/Plan Assessment/Plan: ASSESSMENT nausea, vomiting and diarrhea - likely gastroenteritis ARF likely due to dehydration HTN Asthma Mild anemia Protein calorie malnutrition PLAN OF CARE MS floor IVF, monitor renal parameters, lytes, correct lytes as needed renal US CL diet a/emetic prn stool CX and stool C dif to r/o infectious causes dietary eval BP management with current regimen O2 HHN prn CXR stable venous Dupelx BLE due to LE edema Monitor HH with goal to keep Hgb above 7 hx of DM, not on any anti-glycemic meds, will check HgA1c will not treat K, given diarrhea, it will probably go down, repeat BMP in am DVT, GI prophylaxis supportive care case discussed and evaluated by supervising physician Princess Chavez NP Dec 25, 2019 12:17
[2019-12-25] MEDS ORDERED: D5 1/2NS 1,000 ML IV SCH (12:28)
[2019-12-25 12:30] LABS: CHOLESTEROL 98 MG/DL (< 200); HDL CHOLESTEROL 64 MG/DL (40-60); TRIGLYCERIDES 47 MG/DL (30-150)
[2019-12-25 12:42] VITALS: BP 129/65
--- NOTE | 2019-12-25 12:43 | NUR ---
NURSE NOTES: pt aox4 , hyperpgimentation generalized body, sacral is clean intact, dry. per pt last bm prior to arriving on the floor. pt requests for oxycodone prn to be available , relayed to ADVERTISEMENT DISTRIBUTOR Scott, per ADVERTISEMENT DISTRIBUTOR she needs to assess patient first. pt is comfortable watching tv at this time. oriented to call light , room, and meal times. bed in lowest position, locked. right upper arm 22g intact iv.
--- NOTE | 2019-12-25 13:00 | Diagnostic Imaging Report ---
Indication: Abdominal pain, nausea, vomiting, diarrhea Technique: Spiral acquisitions obtained through the abdomen and pelvis. No oral contrast utilized, per referring physician request No IV contrast utilized, per referring physician request.. Multiplanar reconstructions were generated. Total dose length product 491 mGycm. CTDIvol(s) 10 mGy. Dose reduction achieved using automated exposure control Comparison: None Findings: Lack of enteric contrast limits assessment of the GI tract. There are a few colonic diverticula. No evidence of diverticulitis. No small bowel distention. There is a small to moderate hiatal hernia demonstrated. The remainder of the stomach is unremarkable. Duodenum is unremarkable. No free or loculated intraperitoneal gas or fluid. Unusual calcifications are seen in the anterior abdominal wall midline. Lack of IV contrast limits assessment of the solid organs. The gallbladder has been removed. There is mild dilatation of the downstream common bile duct, which measures up to 10 mm in diameter. No obstructive lesion is demonstrated, however. The liver, pancreas, spleen, adrenals, kidneys are unremarkable. No renal or ureteral calculi, hydronephrosis, or hydroureter. No focal renal parenchymal abnormality. No mesenteric or retroperitoneal mass or adenopathy. The uterus is absent. No pelvic mass or adenopathy. The included lung bases demonstrate interstitial septal thickening, particularly in the lower lobes but generalized. There are scattered areas of scarring, atelectasis, and bronchiectasis. The bones demonstrate degenerative spondylosis changes. Impression: Limited assessment of the GI tract, due to lack of enteric contrast administration No definite acute abnormality Status post cholecystectomy. Mild dilatation of the extrahepatic bile ducts, probably related to age and postcholecystectomy state as no downstream obstructive lesion is demonstrated. Nonetheless, recommend correlation with liver function tests. Basilar pulmonary interstitial septal thickening, scarring, atelectasis and bronchiectasis. Probably on the basis of chronic interstitial disease. Correlate with clinical history and findings Other findings as noted, including hiatal hernia, anterior abdominal wall calcifications, prior hysterectomy, degenerative spondylosis The CT scanner at [facility] is accredited by the [employer] and the scans are performed using protocols designed to limit radiation exposure to as low as reasonably achievable to attain images of sufficient resolution adequate for diagnostic evaluation.
--- NOTE | 2019-12-25 14:12 | NUR ---
NURSE NOTES: SPECIMEN SENT TO LAB
--- NOTE | 2019-12-25 14:40 | Diagnostic Imaging Report ---
Indication: Abnormal renal function tests, acute renal failure Technique: Grayscale and duplex images of the kidneys, retroperitoneum, and bladder were obtained. Comparison: 01/19/2018 Findings: Right kidney measures 8.1 cm in length. Left kidney measures 8 cm in length. Both kidneys demonstrate normal echogenicity. No hydronephrosis. No focal abnormality. Normal inferior vena cava. Bladder is normal. There is no significant change Impression: Bilateral small kidneys, also previously reported. Negative for hydronephrosis.
--- NOTE | 2019-12-25 15:45 | Diagnostic Imaging Report ---
Indication: Pain and swelling, tenderness and edema in the calf area Technique: Grayscale and duplex images of the bilateral lower extremity veins Comparison: none Findings: Bilaterally, grayscale and duplex images demonstrate no evidence of intraluminal thrombus. Normal phasic Doppler waveforms, demonstrating normal augmentation response and no evidence of valvular insufficiency. Patent greater saphenous veins and tibial veins bilaterally. There is edema of the subcutaneous fat in the calf regions Impression: Negative for evidence of lower extremity deep venous thrombosis bilaterally
[2019-12-25 16:00] VITALS: BP 107/51
--- NOTE | 2019-12-25 16:10 | History & Physical ---
History and Physical History & Physicial Dictated for Int Med-DR Villanueva no. [id number]. Aníbal Cuellar MD Dec 25, 2019 16:10
--- NOTE | 2019-12-25 19:40 | NUR ---
NURSE NOTES: Patient awake, alert, and verbally responsive. Breathing unlabored on room air without distress. Patient requested right upper arm IV to be removed due to extreme burning sensation when flushing and constant soreness. IV removed. will attempt a new IV placement. Bed placed at the lowest with alarm, brake, and siderails up for safety. call light placed within reach. will continue to monitor and provide care as ordered.
[2019-12-25 20:00] VITALS: BP 113/47
--- NOTE | 2019-12-25 21:15 | History and Physical Report ---
DATE OF ADMISSION: 12/25/2019 CHIEF COMPLAINT: The patient is an 84-year-old female, who presents with a chief complaint of nausea, vomiting, and diarrhea. HISTORY OF PRESENT ILLNESS: The patient is a resident of [facility]. The patient states she ate a chicken sandwich last evening, December 24, 2019. The patient states she awoke this morning with nausea, vomiting, and diarrhea. The patient is unable to tolerate liquids or solids. Diarrhea is watery in nature. The patient presented to [place] emergency room. The patient is admitted with nausea, vomiting, and diarrhea to rule out acute gastroenteritis versus bacterial infection. REVIEW OF SYSTEMS: CONSTITUTIONAL: The patient denies weight loss or weight gain. The patient denies fevers or chills. HEENT: The patient denies ear or throat pain. The patient denies headache. CARDIOVASCULAR: The patient denies palpitations or chest pain. CHEST: The patient denies wheeze or shortness of breath. ABDOMEN: The patient complains of nausea, vomiting, and diarrhea as above. The patient complains of generalized abdominal pain. The patient denies constipation. NEUROMUSCULAR: The patient denies seizures or generalized weakness. GENITOURINARY: The patient denies dysuria or increased frequency of urination. PAST MEDICAL HISTORY: Significant for, 1. Chronic renal failure. 2. Congestive heart failure. 3. Gastroesophageal reflux disease. 4. Diabetes mellitus type 2. 5. Anemia. 6. Hypertension. 7. Cerebrovascular disease, status post cerebrovascular accident x3. 8. Obesity. 9. Gout. 10. History of cardiomyopathy. PAST SURGICAL HISTORY: Cholecystectomy. CURRENT MEDICATIONS: 1. Allopurinol 100 mg p.o. daily. 2. Aspirin 325 mg p.o. daily. 3. Bumetanide 1 mg p.o. twice daily. 4. Dexilant 60 mg p.o. daily. 5. Gabapentin 300 mg p.o. 4 times daily. 6. Metoprolol 25 mg p.o. daily. 7. Oxycodone 30 mg p.o. q.8 hours p.r.n. ALLERGIES: 1. Diazepam. 2. Hydrocodone. 3. Minoxidil. 4. Penicillin. SOCIAL HISTORY: The patient is single and is a resident of [facility]. The patient denies tobacco or alcohol use. PHYSICAL EXAMINATION: VITAL SIGNS: Temperature 99.7, respirations 14, pulse 92, blood pressure 161/72, and pulse ox 96% on room air. GENERAL: The patient is a well-developed and well-nourished female, in no apparent distress. HEENT: Pupils are equal and responsive to light and accommodation. Extraocular movements are intact. NECK: Supple without lymphadenopathy. CHEST: Lungs are clear to auscultation bilaterally without wheezes or rales. CARDIOVASCULAR: Regular rhythm and rate. S1, S2 are normal without murmurs, rubs, or gallops. ABDOMEN: Soft, diffusely tender with decreased bowel sounds. No evidence of hepatosplenomegaly. Currently, no rebound or guarding noted. EXTREMITIES: Negative for clubbing, cyanosis, or edema. RECTAL/GENITAL: Not performed. NEUROLOGIC: Cranial nerves II through XII are grossly intact without focal deficits. LABORATORY STUDIES: WBC 5.7, hemoglobin 11.5, hematocrit 36.5, and platelets 135,000. Sodium 142, potassium 5.3, chloride 108, CO2 25, BUN 30, creatinine 2.4, and glucose 121. Alkaline phosphatase 139. Urinalysis showed 2+ blood and 2+ protein with 5 to 10 wbc's. ASSESSMENT: This is a an 84-year-old female. 1. Nausea with vomiting. 2. Diarrhea. 3. Abdominal pain. 4. Diabetes type 2. 5. Congestive heart failure. 6. Hypertension. 7. Cerebrovascular disease. 8. Acute on chronic renal failure. 9. Asthma. 10. Anemia of chronic renal disease. 11. Gastroesophageal reflux disease. 12. Gout. 13. Cardiomyopathy. TREATMENT: 1. Nausea, vomiting, and diarrhea. Stool cultures are pending. The patient is tolerating a clear liquid diet at this time. We will follow recommendations of Gastroenterology. Differential includes viral gastroenteritis versus bacterial infection secondary to food poison. 2. Diabetes type 2. A NovoLog sliding scale has been instituted. 3. Congestive heart failure. 4. Hypertension. Continue metoprolol as above. 5. Cerebrovascular disease. 6. Chronic renal failure. A Nephrology consultation has been obtained with Dr. Castillo. The patient is currently receiving intravenous fluids. We will follow recommendations of Nephrology. 7. Asthma. 8. Anemia of chronic disease. 9. Gastroesophageal reflux disease. Continue Protonix as above. 10. Gout. Continue allopurinol as above. 11. Cardiomyopathy. Aníbal Cuellar M.D. DR: DIALLO JOB#: [id number] CC:
[2019-12-25] MEDS: Bumetanide 1mg tab ORAL SCH (21:16)
[2019-12-25] MEDS: Heparin 5000 units/ml inj SUBQ SCH (21:23)
--- NOTE | 2019-12-25 23:00 | NUR ---
NURSE NOTES: Informed Dr. Villanueva regarding patient's refusal for IV placement after multiple attempts. Dr. Villanueva confirmed okay to no IV access and to discontinue the IV fluid at this time. Will carry out the order as given and will continue to monitor the patient.
[2019-12-26] VITALS: BP 93/66
[2019-12-26 04:00] VITALS: BP 119/64
--- NOTE | 2019-12-26 07:20 | NUR ---
NURSE NOTES: Patient awake, alert, and oriented x4. ambulates to the bathroom via walker with minimal assistance. verbally responsive. BLE swollen and kept elevated with pillows. patient has dentures upper and lower in her mouth. provided a cup @ bedside. Bed placed at the lowest with alarm, brake engaged and siderails are up x3 for safety. call light placed within reach. will continue to monitor and provide care as ordered.
[2019-12-26 07:27] LABS: ANION GAP 7 mmol/L (5-15); BLOOD UREA NITROGEN 35 mg/dL (7-18); CALCIUM 8.6 MG/DL (8.5-10.1); CARBON DIOXIDE 25 MMOL/L (21-32); CHLORIDE 110 MMOL/L (98-107); CREATININE 2.5 MG/DL (0.55-1.30); POTASSIUM 4.3 MMOL/L (3.5-5.1); SODIUM 142 MMOL/L (136-145)
--- NOTE | 2019-12-26 07:41 | NUR ---
HAND-OFF: Report given to RANDAL Juan. Plan of care endorsed.
[2019-12-26 07:54] LABS: HEMATOCRIT 29.6 % (37.0-47.0); HEMOGLOBIN 9.4 G/DL (12.0-16.0); MEAN CORPUSCULAR VOLUME 93 FL (80-99); PLATELET COUNT 143 K/UL (150-450); RED CELL DISTRIBUTION WIDTH 14.3 % (11.6-14.8); WHITE BLOOD COUNT 3.2 K/UL (4.8-10.8)
[2019-12-26 08:00] VITALS: BP 129/65
[2019-12-26] MEDS: Heparin 5000 units/ml inj SUBQ SCH ×2 (09:00→20:12)
[2019-12-26] MEDS: Bumetanide 1mg tab ORAL SCH ×2 (09:08→20:15)
[2019-12-26] MEDS: Metoprolol Succinate XL 25mg tab ORAL SCH (09:09)
[2019-12-26] MEDS: Allopurinol 100mg Tab ORAL SCH (09:09)
[2019-12-26] MEDS: Aspirin EC 325mg tab ORAL SCH (09:09)
[2019-12-26 12:00] VITALS: BP 117/56
--- NOTE | 2019-12-26 13:44 | Pulmonology Progress Note ---
Assessment/Plan Problems: (1) Nausea, vomiting, and diarrhea (2) Peripheral edema (3) Gastroenteritis (4) Anemia (5) CKD (chronic kidney disease) (6) Cardiomyopathy (7) GERD (gastroesophageal reflux disease) (8) Gout (9) HTN (hypertension) (10) Cerebral vascular disease (11) Diabetes mellitus Assessment/Plan improving check echo venous doppler of legs anemia w/u including OB of stool renal w/u GI evaluation symptomatic treatment Subjective ROS Limited/Unobtainable: No Interval Events: doing better Allergies: Coded Allergies: DIAZEPAM (Verified Allergy, Unknown, 10/07/11) HYDROCODONE (Verified Allergy, Unknown, 07/07/10) MINOXIDIL (Verified Allergy, Unknown, 07/07/10) PENICILLINS (Unverified Allergy, Unknown, 12/25/19) NAME ALERT (Verified Adverse Reaction, Unknown, 07/13/08) Objective Last 24 Hour Vital Signs Date Time Temp Pulse Resp B/P (MAP) Pulse Ox O2 Delivery O2 Flow Rate FiO2 12/26/19 12:00 97.5 63 18 117/56 (76) 97 12/26/19 09:09 84 129/65 12/26/19 09:00 Room Air 12/26/19 08:00 97.7 84 19 129/65 (86) 99 12/26/19 04:00 98.5 82 16 119/64 (82) 93 12/26/19 00:00 97.7 84 18 93/66 (75) 97 12/25/19 21:00 Room Air 12/25/19 20:00 98.9 76 18 113/47 (69) 96 12/25/19 16:00 99.2 79 18 107/51 (69) 98 12/25/19 14:47 99.2 Intake and Output 12/25/19 12/26/19 19:00 07:00 Intake Total 0 ml 400 ml Balance 0 ml 400 ml Intake Oral 0 ml Other 400 ml # Voids 3 # Bowel Movements 1 General Appearance: WD/WN HEENT: normocephalic, atraumatic Respiratory/Chest: chest wall non-tender, lungs clear Breasts: no masses Cardiovascular: normal rate Abdomen: normal bowel sounds, no scars Extremities: no cyanosis Skin: no rash Microbiology Date/Time Source Procedure Growth Status 12/25/19 14:00 Stool Clostridium difficile Toxin Assay - Final Complete Laboratory Tests 12/26/19 06:10: White Blood Count 3.2L, Red Blood Count 3.20L, Hemoglobin 9.4L, Hematocrit 29.6L , Mean Corpuscular Volume 93, Mean Corpuscular Hemoglobin 29.3, Mean Corpuscular Hemoglobin Concent 31.7L, Red Cell Distribution Width 14.3, Platelet Count 143L, Mean Platelet Volume 5.0L, Neutrophils (%) (Auto) , Lymphocytes (%) (Auto) , Monocytes (%) (Auto) , Eosinophils (%) (Auto) , Basophils (%) (Auto) , Differential Total Cells Counted 100, Neutrophils % ( Manual) 74, Lymphocytes % (Manual) 15L, Monocytes % (Manual) 10, Eosinophils % ( Manual) 1, Basophils % (Manual) 0, Band Neutrophils 0, Platelet Estimate DecreasedL, Platelet Morphology Normal, Sodium Level 142, Potassium Level 4.3, Chloride Level 110H, Carbon Dioxide Level 25, Anion Gap 7, Blood Urea Nitrogen 35H, Creatinine 2.5H, Estimat Glomerular Filtration Rate 22.2, Glucose Level 91 , Calcium Level 8.6, Magnesium Level 1.7L Current Medications Medications (Trade) Dose Ordered Sig/Liss Route PRN Reason Start Time Stop Time Status Last Admin Dose Admin Acetaminophen (Tylenol) 650 mg Q4H PRN ORAL Mild Pain (Pain Scale 1-3) 12/25/19 12:15 01/24/20 12:14 12/25/19 23:27 Albuterol/ Ipratropium (Albuterol/ Ipratropium) 3 ml Q6H PRN HHN Shortness of Breath 12/25/19 12:15 12/30/19 12:14 Allopurinol (Zyloprim) 100 mg DAILY ORAL 12/26/19 09:00 01/25/20 08:59 12/26/19 09:09 Aspirin (Ecotrin) 325 mg DAILY ORAL 12/26/19 09:00 01/25/20 08:59 12/26/19 09:09 Bumetanide (Bumex) 1 mg Q12HR ORAL 12/25/19 21:00 01/24/20 20:59 12/26/19 09:08 Dextrose (Dextrose 50%) 25 ml Q30M PRN IV Hypoglycemia 12/25/19 12:15 01/24/20 12:14 Dextrose (Dextrose 50%) 50 ml Q30M PRN IV Hypoglycemia 12/25/19 12:15 01/24/20 12:14 Famotidine (Pepcid) 40 mg DAILY ORAL 12/26/19 09:00 01/25/20 08:59 12/26/19 09:08 Gabapentin (Neurontin) 300 mg QID ORAL 12/26/19 13:00 01/24/20 12:59 Heparin Sodium (Porcine) (Heparin 5000 units/ml) 5,000 units EVERY 12 HOURS SUBQ 12/25/19 21:00 01/24/20 20:59 12/25/19 21:23 Metoprolol Succinate (Toprol XL) 25 mg DAILY ORAL 12/26/19 09:00 01/25/20 08:59 12/26/19 09:09 Ondansetron HCl (Zofran) 4 mg Q6H PRN IVP Nausea & Vomiting 12/25/19 12:15 01/24/20 12:14 Roberta Durán MD Dec 26, 2019 13:44
[2019-12-26 14:59] LABS: CREATINE KINASE 45 U/L (26-308)
[2019-12-26 16:00] VITALS: BP 148/60
--- NOTE | 2019-12-26 19:10 | NUR ---
HAND-OFF: Report given to Soto.
--- NOTE | 2019-12-26 19:42 | Internal Med Progress Note ---
Subjective Date of Service: Dec 26, 2019 Physician Name AlisaAníbal Attending Physician Christopher Villanueva MD Current Medications Medications (Trade) Dose Ordered Sig/Liss Route PRN Reason Start Time Stop Time Status Last Admin Dose Admin Acetaminophen (Tylenol) 650 mg Q4H PRN ORAL Mild Pain (Pain Scale 1-3) 12/25/19 12:15 01/24/20 12:14 12/25/19 23:27 Albuterol/ Ipratropium (Albuterol/ Ipratropium) 3 ml Q6H PRN HHN Shortness of Breath 12/25/19 12:15 12/30/19 12:14 Allopurinol (Zyloprim) 100 mg DAILY ORAL 12/26/19 09:00 01/25/20 08:59 12/26/19 09:09 Aspirin (Ecotrin) 325 mg DAILY ORAL 12/26/19 09:00 01/25/20 08:59 12/26/19 09:09 Bumetanide (Bumex) 1 mg Q12HR ORAL 12/25/19 21:00 01/24/20 20:59 12/26/19 09:08 Dextrose (Dextrose 50%) 25 ml Q30M PRN IV Hypoglycemia 12/25/19 12:15 01/24/20 12:14 Dextrose (Dextrose 50%) 50 ml Q30M PRN IV Hypoglycemia 12/25/19 12:15 01/24/20 12:14 Famotidine (Pepcid) 40 mg DAILY ORAL 12/26/19 09:00 01/25/20 08:59 12/26/19 09:08 Gabapentin (Neurontin) 300 mg QID ORAL 12/26/19 13:00 01/24/20 12:59 12/26/19 17:15 Heparin Sodium (Porcine) (Heparin 5000 units/ml) 5,000 units EVERY 12 HOURS SUBQ 12/25/19 21:00 01/24/20 20:59 12/25/19 21:23 Metoprolol Succinate (Toprol XL) 25 mg DAILY ORAL 12/26/19 09:00 01/25/20 08:59 12/26/19 09:09 Ondansetron HCl (Zofran) 4 mg Q6H PRN IVP Nausea & Vomiting 12/25/19 12:15 01/24/20 12:14 Allergies: Coded Allergies: DIAZEPAM (Verified Allergy, Unknown, 10/07/11) HYDROCODONE (Verified Allergy, Unknown, 07/07/10) MINOXIDIL (Verified Allergy, Unknown, 07/07/10) PENICILLINS (Unverified Allergy, Unknown, 12/25/19) NAME ALERT (Verified Adverse Reaction, Unknown, 07/13/08) ROS Limited/Unobtainable: Yes Subjective 84 YO F admitted with nausea, vomiting and diarrhea. Cover for Itn Saúl-DR Villanueva Objective Last Vital Signs Date Time Temp Pulse Resp B/P (MAP) Pulse Ox O2 Delivery O2 Flow Rate FiO2 12/26/19 16:00 97.9 75 19 148/60 (89) 98 12/26/19 09:00 Room Air Laboratory Tests Test 12/26/19 06:10 12/26/19 06:30 White Blood Count 3.2 K/UL (4.8-10.8) L Red Blood Count 3.20 M/UL (4.20-5.40) L Hemoglobin 9.4 G/DL (12.0-16.0) L Hematocrit 29.6 % (37.0-47.0) L Mean Corpuscular Volume 93 FL (80-99) Mean Corpuscular Hemoglobin 29.3 PG (27.0-31.0) Mean Corpuscular Hemoglobin Concent 31.7 G/DL (32.0-36.0) L Red Cell Distribution Width 14.3 % (11.6-14.8) Platelet Count 143 K/UL (150-450) L Mean Platelet Volume 5.0 FL (6.5-10.1) L Neutrophils (%) (Auto) % (45.0-75.0) Lymphocytes (%) (Auto) % (20.0-45.0) Monocytes (%) (Auto) % (1.0-10.0) Eosinophils (%) (Auto) % (0.0-3.0) Basophils (%) (Auto) % (0.0-2.0) Differential Total Cells Counted 100 Neutrophils % (Manual) 74 % (45-75) Lymphocytes % (Manual) 15 % (20-45) L Monocytes % (Manual) 10 % (1-10) Eosinophils % (Manual) 1 % (0-3) Basophils % (Manual) 0 % (0-2) Band Neutrophils 0 % (0-8) Platelet Estimate Decreased L Platelet Morphology Normal Sodium Level 142 MMOL/L (136-145) Potassium Level 4.3 MMOL/L (3.5-5.1) Chloride Level 110 MMOL/L (98-107) H Carbon Dioxide Level 25 MMOL/L (21-32) Anion Gap 7 mmol/L (5-15) Blood Urea Nitrogen 35 mg/dL (7-18) H Creatinine 2.5 MG/DL (0.55-1.30) H Estimat Glomerular Filtration Rate 22.2 mL/min (>60) Glucose Level 91 MG/DL (74-106) Calcium Level 8.6 MG/DL (8.5-10.1) Magnesium Level 1.7 MG/DL (1.8-2.4) L Uric Acid 8.6 MG/DL (2.6-7.2) H Total Creatine Kinase 45 U/L (26-308) Microbiology Date/Time Source Procedure Growth Status 12/25/19 14:00 Stool Clostridium difficile Toxin Assay - Final Complete Intake and Output 12/25/19 12/26/19 19:00 07:00 Intake Total 0 ml 400 ml Balance 0 ml 400 ml Intake Oral 0 ml Other 400 ml # Voids 3 # Bowel Movements 1 Objective PHYSICAL EXAMINATION: GENERAL: The patient is a well-developed and well-nourished female, in no apparent distress. HEENT: Pupils are equal and responsive to light and accommodation. Extraocular movements are intact. NECK: Supple without lymphadenopathy. CHEST: Lungs are clear to auscultation bilaterally without wheezes or rales. CARDIOVASCULAR: Regular rhythm and rate. S1, S2 are normal without murmurs, rubs, or gallops. ABDOMEN: Soft, diffusely tender with decreased bowel sounds. No evidence of hepatosplenomegaly. Currently, no rebound or guarding noted. EXTREMITIES: Negative for clubbing, cyanosis, or edema. RECTAL/GENITAL: Not performed. NEUROLOGIC: Cranial nerves II through XII are grossly intact without focal deficits. Assessment/Plan Assessment/Plan ASSESSMENT: This is a an 84-year-old female. 1. Nausea with vomiting. 2. Diarrhea. 3. Abdominal pain. 4. Diabetes type 2. 5. Congestive heart failure. 6. Hypertension. 7. Cerebrovascular disease. 8. Acute on chronic renal failure. 9. Asthma. 10. Anemia of chronic renal disease. 11. Gastroesophageal reflux disease. 12. Gout. 13. Cardiomyopathy. TREATMENT: 1. Nausea, vomiting, and diarrhea. Stool cultures are pending. The patient is tolerating a clear liquid diet at this time. We will follow recommendations of Gastroenterology. Differential includes viral gastroenteritis versus bacterial infection secondary to food poison. 2. Diabetes type 2. A NovoLog sliding scale has been instituted. 3. Congestive heart failure. 4. Hypertension. Continue metoprolol as above. 5. Cerebrovascular disease. 6. Chronic renal failure. A Nephrology consultation has been obtained with Dr. Castillo. The patient is currently receiving intravenous fluids. We will follow recommendations of Nephrology. 7. Asthma. 8. Anemia of chronic disease. 9. Gastroesophageal reflux disease. Continue Protonix as above. 10. Gout. Continue allopurinol as above. 11. Cardiomyopathy. Aníbal Cuellar MD Dec 26, 2019 19:42
[2019-12-26 20:00] VITALS: BP_SYST 146; BP_SYST 151; BP_DIAS 60; BP_DIAS 84
--- NOTE | 2019-12-26 20:00 | NUR ---
NURSE NOTES: Patient received in bed, aox4, ambulatory with walker. Instructed patient to call for assistance prior to going to the bathroom. Patient was placed on a feliz bed but patient is refused to have bed alarm on. Patient stated that she has multiple diarrhea and has to go to the bathroom multiple times. Bedside commode was provided but patient prefers to walk to the bathroom. Educated patient regarding fall risk precautions. Patient verbalized that she will press the call light prior to getting up. Patient wearing yellow gown and yellow socks. Communicated with CAR REPAIRER APPRENTICE regarding fall risk status. Call light and personal belongings within easy reach. Will continue to monitor.
--- NOTE | 2019-12-26 20:24 | NUR ---
CASE MANAGEMENT: REVIEW 84 YEAR OLD FEMALE BIBA FROM [facility] CC: N/V/D X1 DAY SI: NAUSEA . VOMITING . DIARRHEA . GASTROENTERITIS T 99.74 HR 92 RR 14 BP 161/72 SAT 96% ROOM AIR H/H 9.4/29.6 K+ 5.3 BUN 30 CR 2.4 IS: ZOFRAN IV X1 D5 1/2 NS IVF BOLUS X1 CLEAR LIQUID DIET PATIENT ADMITTED TO MED/SURG UNIT 12/25/2019 DCP: PATIENT IS FROM [facility]
--- NOTE | 2019-12-26 21:00 | NUR ---
NURSE NOTES: Patient refused bumex. Patient stated she normally on receive one dose in the morning. She did not want to urinate the whole night after taking the medication. Explained to patient indication and importance of medication, verbalized understanding and stated that her advertising rep recommended her to only take the medication once daily.
[2019-12-26 21:36] LABS: APPEARANCE,URINE CLEAR; BILIRUBIN, URINE NEGATIVE (NEGATIVE); COLOR,URINE PALE YELLOW; GLUCOSE, URINE (UA) NEGATIVE (NEGATIVE); KETONES,URINE NEGATIVE (NEGATIVE); LEUKOCYTE ESTERASE ,URINE 3+ (NEGATIVE); NITRITE,URINE NEGATIVE (NEGATIVE); PH,URINE 6 (4.5-8.0); PROTEIN,URINE NEGATIVE (NEGATIVE); UROBILINOGEN,URINE NORMAL MG/DL (0.0-1.0)
[2019-12-27] VITALS: BP 145/77
[2019-12-27 04:00] VITALS: BP 142/73
[2019-12-27 07:18] LABS: INR 1.1 (0.9-1.1)
[2019-12-27 07:19] LABS: BASOPHILS % (AUTO) 0.9 % (0.0-2.0); EOSINOPHILS % (AUTO) 3.7 % (0.0-3.0); HEMATOCRIT 30.7 % (37.0-47.0); HEMOGLOBIN 9.8 G/DL (12.0-16.0); LYMPHOCYTES % (AUTO) 23.5 % (20.0-45.0); MEAN CORPUSCULAR VOLUME 93 FL (80-99); MONOCYTES % (AUTO) 13.6 % (1.0-10.0); NEUTROPHILS % (AUTO) 58.4 % (45.0-75.0); PLATELET COUNT 151 K/UL (150-450); RED BLOOD COUNT 3.31 M/UL (4.20-5.40); RED CELL DISTRIBUTION WIDTH 14.1 % (11.6-14.8); WHITE BLOOD COUNT 3.8 K/UL (4.8-10.8)
--- NOTE | 2019-12-27 07:34 | NUR ---
HAND-OFF: Report given to Yessica TEE.
--- NOTE | 2019-12-27 07:35 | NUR ---
NURSE NOTES: Patient awake, alert, and oriented x4. having breakfast in bed. ambulates to the bathroom via walker with minimal assistance. able to make things known. BLE swollen and kept elevated with pillows. wears dentures upper/lower. provided a cup @ bedside. Bed placed at the lowest with alarm, brake engaged and siderails are up x3 for safety. call light placed within reach. will continue to monitor and provide care as ordered.
[2019-12-27 07:43] LABS: ANION GAP 14 mmol/L (5-15); BLOOD UREA NITROGEN 30 mg/dL (7-18); CALCIUM 8.7 MG/DL (8.5-10.1); CARBON DIOXIDE 19 MMOL/L (21-32); CHLORIDE 110 MMOL/L (98-107); CREATININE 2.1 MG/DL (0.55-1.30); POTASSIUM 4.3 MMOL/L (3.5-5.1); SODIUM 143 MMOL/L (136-145)
[2019-12-27 07:46] LABS: LACTATE DEHYDROGENASE 135 U/L (81-234); PHOSPHORUS 3.2 MG/DL (2.5-4.9)
[2019-12-27 08:00] VITALS: BP 120/67
[2019-12-27 08:20] LABS: % IRON SATURATION 10 % (15-50); IRON 20 ug/dL (50-175); TOTAL IRON BINDING CAPACITY 202 ug/dL (250-450)
[2019-12-27] MEDS: Bumetanide 1mg tab ORAL SCH ×2 (09:06→20:43)
[2019-12-27] MEDS: Aspirin EC 325mg tab ORAL SCH (09:07)
[2019-12-27] MEDS: Allopurinol 100mg Tab ORAL SCH (09:07)
[2019-12-27] MEDS: Metoprolol Succinate XL 25mg tab ORAL SCH (09:07)
[2019-12-27] MEDS: Heparin 5000 units/ml inj SUBQ SCH ×2 (09:10→20:44)
--- NOTE | 2019-12-27 09:27 | NUR ---
NURSE NOTES: Informed Dr Villanueva re; patient c/o pain on the left breast 03/17. refused for pain meds and requested for a cream for her eczema. able to move her left arm. no new order obtained. will cont to monitor.
[2019-12-27 12:00] VITALS: BP 147/57
--- NOTE | 2019-12-27 13:17 | Pulmonology Progress Note ---
Assessment/Plan Problems: (1) UTI (urinary tract infection) (2) Nausea, vomiting, and diarrhea (3) Peripheral edema (4) Asthma (5) Gastroenteritis (6) Anemia (7) CKD (chronic kidney disease) (8) Cardiomyopathy (9) GERD (gastroesophageal reflux disease) (10) Gout (11) HTN (hypertension) (12) Cerebral vascular disease (13) Diabetes mellitus Assessment/Plan c/o swelling in Left breast, will get US or mammogram improving check echo venous doppler of legs anemia w/u including OB of stool renal w/u GI evaluation symptomatic treatment Subjective ROS Limited/Unobtainable: No Constitutional: Reports: no symptoms HEENT: Repors: no symptoms Respiratory: Reports: no symptoms Allergies: Coded Allergies: DIAZEPAM (Verified Allergy, Unknown, 10/07/11) HYDROCODONE (Verified Allergy, Unknown, 07/07/10) MINOXIDIL (Verified Allergy, Unknown, 07/07/10) PENICILLINS (Unverified Allergy, Unknown, 12/25/19) NAME ALERT (Verified Adverse Reaction, Unknown, 07/13/08) Objective Last 24 Hour Vital Signs Date Time Temp Pulse Resp B/P (MAP) Pulse Ox O2 Delivery O2 Flow Rate FiO2 12/27/19 12:00 98.1 64 17 147/57 (87) 97 12/27/19 09:07 80 120/67 12/27/19 08:00 98.0 70 18 120/67 (84) 100 12/27/19 04:00 97.9 83 18 142/73 (96) 96 12/27/19 00:00 98.1 86 20 145/77 (99) 98 12/26/19 21:00 Room Air 12/26/19 20:00 98.0 97 18 146/60 (88) 97 12/26/19 16:00 97.9 75 19 148/60 (89) 98 Intake and Output 12/26/19 12/27/19 19:00 07:00 Intake Total 750 ml 0 ml Balance 750 ml 0 ml Intake Oral 750 ml 0 ml # Voids 3 # Bowel Movements 4 General Appearance: WD/WN HEENT: normocephalic Respiratory/Chest: chest wall non-tender, lungs clear Cardiovascular: normal peripheral pulses, normal rate Abdomen: normal bowel sounds, soft, non tender Genitourinary: normal external genitalia Skin: no rash Microbiology Date/Time Source Procedure Growth Status 12/25/19 14:00 Stool Clostridium difficile Toxin Assay - Final Complete Laboratory Tests 12/26/19 19:20: Stool Occult Blood Negative 12/26/19 20:45: Urine Color Pale yellow, Urine Appearance Clear, Urine pH 6, Urine Specific [place] 1.015, Urine Protein Negative, Urine Glucose (UA) Negative, Urine Ketones Negative, Urine Blood 1+H, Urine Nitrite Negative, Urine Bilirubin Negative, Urine Urobilinogen Normal, Urine Leukocyte Esterase 3+H, Urine RBC 2- 4H, Urine WBC 10-15H, Urine Squamous Epithelial Cells ModerateH, Urine Bacteria ManyH, Urine Eosinophils None seen, Urine Random Sodium 102, Urine Potassium Timed 17 12/27/19 06:48: White Blood Count 3.8L, Red Blood Count 3.31L, Hemoglobin 9.8L, Hematocrit 30.7L , Mean Corpuscular Volume 93, Mean Corpuscular Hemoglobin 29.7, Mean Corpuscular Hemoglobin Concent 32.0, Red Cell Distribution Width 14.1, Platelet Count 151, Mean Platelet Volume 5.2L, Neutrophils (%) (Auto) 58.4, Lymphocytes ( %) (Auto) 23.5, Monocytes (%) (Auto) 13.6H, Eosinophils (%) (Auto) 3.7H, Basophils (%) (Auto) 0.9, Erythrocyte Sedimentation Rate 73H, Reticulocyte Count 0.2L, Prothrombin Time 11.2, Prothromb Time International Ratio 1.1, Activated Partial Thromboplast Time 30, Sodium Level 143, Potassium Level 4.3, Chloride Level 110H, Carbon Dioxide Level 19L, Anion Gap 14, Blood Urea Nitrogen 30H, Creatinine 2.1H, Estimat Glomerular Filtration Rate 27.0, Glucose Level 81, Calcium Level 8.7, Phosphorus Level 3.2, Magnesium Level 1.6L, Iron Level 20L, Total Iron Binding Capacity 202L, Percent Iron Saturation 10L, Unsaturated Iron Binding 182, Lactate Dehydrogenase 135, C-Reactive Protein, Quantitative 2.6H, Carcinoembryonic Antigen [Pending], Vitamin B12 Level 202, Folate 17.0 Current Medications Medications (Trade) Dose Ordered Sig/Liss Route PRN Reason Start Time Stop Time Status Last Admin Dose Admin Acetaminophen (Tylenol) 650 mg Q4H PRN ORAL Mild Pain (Pain Scale 1-3) 12/25/19 12:15 01/24/20 12:14 12/25/19 23:27 Albuterol/ Ipratropium (Albuterol/ Ipratropium) 3 ml Q6H PRN HHN Shortness of Breath 12/25/19 12:15 12/30/19 12:14 Allopurinol (Zyloprim) 100 mg DAILY ORAL 12/26/19 09:00 01/25/20 08:59 12/27/19 09:07 Aspirin (Ecotrin) 325 mg DAILY ORAL 12/26/19 09:00 01/25/20 08:59 12/27/19 09:07 Bumetanide (Bumex) 1 mg Q12HR ORAL 12/25/19 21:00 01/24/20 20:59 12/27/19 09:06 Dextrose (Dextrose 50%) 25 ml Q30M PRN IV Hypoglycemia 12/25/19 12:15 01/24/20 12:14 Dextrose (Dextrose 50%) 50 ml Q30M PRN IV Hypoglycemia 12/25/19 12:15 01/24/20 12:14 Famotidine (Pepcid) 40 mg DAILY ORAL 12/26/19 09:00 01/25/20 08:59 12/27/19 09:06 Gabapentin (Neurontin) 300 mg QID ORAL 12/26/19 13:00 01/24/20 12:59 12/27/19 12:32 Heparin Sodium (Porcine) (Heparin 5000 units/ml) 5,000 units EVERY 12 HOURS SUBQ 12/25/19 21:00 01/24/20 20:59 12/27/19 09:10 Metoprolol Succinate (Toprol XL) 25 mg DAILY ORAL 12/26/19 09:00 01/25/20 08:59 12/27/19 09:07 Ondansetron HCl (Zofran) 4 mg Q6H PRN IVP Nausea & Vomiting 12/25/19 12:15 01/24/20 12:14 Roberta Durán MD Dec 27, 2019 13:17
--- NOTE | 2019-12-27 13:31 | Consultation ---
History of Present Illness General Date patient seen: Dec 27, 2019 Chief Complaint: Nausea, Vomiting, and Diarrhea Referring physician: dr Villanueva Reason for Consultation: hospitalsit/critical care Present Illness HPI 84 y/o F with hx of HTN, DM2, CVAx3, CKD, Obesity, s/p cholecystectomy, Gout, cardiomyopathy, CHF, anemia, GERD, Asthma, Assisted living resident presented to ED on 12/25 with nausea, vomiting and watery diarrhea after eating a chicken sandwich the night prior. Also reported diffuse mild abdominal cramping. Unable to tolerate liquids or solids. Denied chest pain, SOB, dysuria, fever/chills, back/flank pain. Allergies: Coded Allergies: DIAZEPAM (Verified Allergy, Unknown, 10/07/11) HYDROCODONE (Verified Allergy, Unknown, 07/07/10) MINOXIDIL (Verified Allergy, Unknown, 07/07/10) PENICILLINS (Unverified Allergy, Unknown, 12/25/19) NAME ALERT (Verified Adverse Reaction, Unknown, 07/13/08) Medication History Scheduled Allopurinol* (Allopurinol*), 100 MG ORAL DAILY, (Reported) Aspirin* (Aspir-Malissa*), 325 MG ORAL DAILY, (Reported) Bumetanide* (Bumetanide*), 1 MG ORAL Q12HR Dexlansoprazole (Dexilant), 60 MG ORAL DAILY, (Reported) Gabapentin* (Gabapentin*), 300 MG ORAL QID, (Reported) Metoprolol Succinate* (Metoprolol Succinate*), 25 MG ORAL DAILY, (Reported) Scheduled PRN Oxycodone Hcl* (Oxycodone Hcl*), 30 MG ORAL Q8H PRN for For Pain, (Reported) Discontinued Medications Amlodipine/Atorvastatin 2.5-40 Mg (Amlodipine-Atorvast 2.5-40 Mg), 1 TAB ORAL DAILY, (Reported) Discontinued Reason: Therapy completed Calcitriol (Calcitriol), 0.25 MCG PO 3XW, (Reported) Discontinued Reason: Therapy completed Cephalexin* (Keflex*), 250 MG ORAL EVERY 6 HOURS Discontinued Reason: Therapy completed Fluticasone/Salmeterol (Advair 100-50 Diskus), 1 PUFF INH EVERY 12 HOURS, ( Reported) Discontinued Reason: Therapy completed Furosemide* (Lasix*), 40 MG ORAL TWICE A DAY, (Reported) Discontinued Reason: Therapy completed Furosemide* (Lasix*), 40 MG ORAL DAILY, (Reported) Discontinued Reason: Therapy completed Isosorbide Dinitrate* (Isordil*), 5 MG ORAL EVERY 12 HOURS, (Reported) Discontinued Reason: Therapy completed Lidocaine (Lidocaine), 700 MG TP DAILY, (Reported) Discontinued Reason: Therapy completed Nitrofurantoin Monohyd/M-Cryst (Nitrofurantoin [place]-Mcr 100 mg), 100 MG ORAL Q12H Discontinued Reason: Therapy completed Oxybutynin Chloride (Oxybutynin Chloride), 15 MG ORAL, (Reported) Discontinued Reason: Therapy completed Patient History Healthcare decision maker Resuscitation status Full Code Advanced Directive on File Patient History Narrative Pmhx: as above Shx: The patient is single and is a resident of [facility]. The patient denies tobacco or alcohol use. Fhx: non contributory Review of Systems All Other Systems: negative except mentioned in HPI Physical Exam Physical Exam Narrative GENERAL: The patient is a well-developed and well-nourished female, in no apparent distress. HEENT: Pupils are equal and responsive to light and accommodation. Extraocular movements are intact. NECK: Supple without lymphadenopathy. CHEST: Lungs are clear to auscultation bilaterally without wheezes or rales. CARDIOVASCULAR: Regular rhythm and rate. S1, S2 are normal without murmurs, rubs, or gallops. ABDOMEN: Soft, diffusely tender with decreased bowel sounds. No evidence of hepatosplenomegaly. Currently, no rebound or guarding noted. EXTREMITIES: Negative for clubbing, cyanosis, or edema. Last 24 Hour Vital Signs Date Time Temp Pulse Resp B/P (MAP) Pulse Ox O2 Delivery O2 Flow Rate FiO2 12/27/19 12:00 98.1 64 17 147/57 (87) 97 12/27/19 09:07 80 120/67 12/27/19 08:00 98.0 70 18 120/67 (84) 100 12/27/19 04:00 97.9 83 18 142/73 (96) 96 12/27/19 00:00 98.1 86 20 145/77 (99) 98 12/26/19 21:00 Room Air 12/26/19 20:00 98.0 97 18 146/60 (88) 97 12/26/19 16:00 97.9 75 19 148/60 (89) 98 Intake and Output 12/26/19 12/27/19 19:00 07:00 Intake Total 750 ml 0 ml Balance 750 ml 0 ml Intake Oral 750 ml 0 ml # Voids 3 # Bowel Movements 4 Laboratory Tests Test 12/26/19 19:20 12/26/19 20:45 12/27/19 06:48 Stool Occult Blood Negative (NEGATIVE) Urine Color Pale yellow Urine Appearance Clear Urine pH 6 (4.5-8.0) Urine Specific [place] 1.015 (1.005-1.035) Urine Protein Negative (NEGATIVE) Urine Glucose (UA) Negative (NEGATIVE) Urine Ketones Negative (NEGATIVE) Urine Blood 1+ (NEGATIVE) H Urine Nitrite Negative (NEGATIVE) Urine Bilirubin Negative (NEGATIVE) Urine Urobilinogen Normal MG/DL (0.0-1.0) Urine Leukocyte Esterase 3+ (NEGATIVE) H Urine RBC 2-4 /HPF (0 - 2) H Urine WBC 10-15 /HPF (0 - 2) H Urine Squamous Epithelial Cells Moderate /LPF (NONE/OCC) H Urine Bacteria Many /HPF (NONE) H Urine Eosinophils None seen (NONE SEEN) Urine Random Sodium 102 mmol/L (20-110) Urine Potassium Timed 17 mmol/L (12-62) White Blood Count 3.8 K/UL (4.8-10.8) L Red Blood Count 3.31 M/UL (4.20-5.40) L Hemoglobin 9.8 G/DL (12.0-16.0) L Hematocrit 30.7 % (37.0-47.0) L Mean Corpuscular Volume 93 FL (80-99) Mean Corpuscular Hemoglobin 29.7 PG (27.0-31.0) Mean Corpuscular Hemoglobin Concent 32.0 G/DL (32.0-36.0) Red Cell Distribution Width 14.1 % (11.6-14.8) Platelet Count 151 K/UL (150-450) Mean Platelet Volume 5.2 FL (6.5-10.1) L Neutrophils (%) (Auto) 58.4 % (45.0-75.0) Lymphocytes (%) (Auto) 23.5 % (20.0-45.0) Monocytes (%) (Auto) 13.6 % (1.0-10.0) H Eosinophils (%) (Auto) 3.7 % (0.0-3.0) H Basophils (%) (Auto) 0.9 % (0.0-2.0) Erythrocyte Sedimentation Rate 73 MM/HR (0-30) H Reticulocyte Count 0.2 % (0.5-2.0) L Prothrombin Time 11.2 SEC (9.30-11.50) Prothromb Time International Ratio 1.1 (0.9-1.1) Activated Partial Thromboplast Time 30 SEC (23-33) Sodium Level 143 MMOL/L (136-145) Potassium Level 4.3 MMOL/L (3.5-5.1) Chloride Level 110 MMOL/L (98-107) H Carbon Dioxide Level 19 MMOL/L (21-32) L Anion Gap 14 mmol/L (5-15) Blood Urea Nitrogen 30 mg/dL (7-18) H Creatinine 2.1 MG/DL (0.55-1.30) H Estimat Glomerular Filtration Rate 27.0 mL/min (>60) Glucose Level 81 MG/DL (74-106) Calcium Level 8.7 MG/DL (8.5-10.1) Phosphorus Level 3.2 MG/DL (2.5-4.9) Magnesium Level 1.6 MG/DL (1.8-2.4) L Iron Level 20 ug/dL (50-175) L Total Iron Binding Capacity 202 ug/dL (250-450) L Percent Iron Saturation 10 % (15-50) L Unsaturated Iron Binding 182 ug/dL (112-346) Lactate Dehydrogenase 135 U/L (81-234) C-Reactive Protein, Quantitative 2.6 mg/dL (0.00-0.90) H Carcinoembryonic Antigen Pending Vitamin B12 Level 202 PG/ML (193-986) Folate 17.0 NG/ML (8.6-58.9) Height (Feet): 5 Height (Inches): 4.00 Weight (Pounds): 184 Medications Current Medications Medications (Trade) Dose Ordered Sig/Liss Route PRN Reason Start Time Stop Time Status Last Admin Dose Admin Acetaminophen (Tylenol) 650 mg Q4H PRN ORAL Mild Pain (Pain Scale 1-3) 12/25/19 12:15 01/24/20 12:14 12/25/19 23:27 Albuterol/ Ipratropium (Albuterol/ Ipratropium) 3 ml Q6H PRN HHN Shortness of Breath 12/25/19 12:15 12/30/19 12:14 Allopurinol (Zyloprim) 100 mg DAILY ORAL 12/26/19 09:00 01/25/20 08:59 12/27/19 09:07 Aspirin (Ecotrin) 325 mg DAILY ORAL 12/26/19 09:00 01/25/20 08:59 12/27/19 09:07 Bumetanide (Bumex) 1 mg Q12HR ORAL 12/25/19 21:00 01/24/20 20:59 12/27/19 09:06 Dextrose (Dextrose 50%) 25 ml Q30M PRN IV Hypoglycemia 12/25/19 12:15 01/24/20 12:14 Dextrose (Dextrose 50%) 50 ml Q30M PRN IV Hypoglycemia 12/25/19 12:15 01/24/20 12:14 Famotidine (Pepcid) 40 mg DAILY ORAL 12/26/19 09:00 01/25/20 08:59 12/27/19 09:06 Gabapentin (Neurontin) 300 mg QID ORAL 12/26/19 13:00 01/24/20 12:59 12/27/19 12:32 Heparin Sodium (Porcine) (Heparin 5000 units/ml) 5,000 units EVERY 12 HOURS SUBQ 12/25/19 21:00 01/24/20 20:59 12/27/19 09:10 Metoprolol Succinate (Toprol XL) 25 mg DAILY ORAL 12/26/19 09:00 01/25/20 08:59 12/27/19 09:07 Ondansetron HCl (Zofran) 4 mg Q6H PRN IVP Nausea & Vomiting 12/25/19 12:15 01/24/20 12:14 Assessment/Plan Assessment/Plan: Abx: None Assessment: Viral gastroenteritis vs food intoxication -12/25 CT abd/p: Limited assessment of the GI tract, due to lack of enteric contrast administration. No definite acute abnormality. Status post cholecystectomy. Mild dilatation of the extrahepatic bile ducts, probably related to age and postcholecystectomy state as no downstream obstructive lesion is demonstrated. Basilar pulmonary interstitial septal thickening, scarring, atelectasis and bronchiectasis. Probably on the basis of chronic interstitial disease. -12/25 Cdiff neg stool cx normal shweta to date Pyuria (no UTI symptoms) -12/26 u/a wbc 10-15, nit neg, leuk +3; many sq cells ; ucx p -12/25 u/a wbc 5-20, nit neg, leuk +3 Afebrile Mild leukopenia -12/25 CXR: Suspect small left pleural effusion. No definite acute process otherwise MORGAN on CKD; improving -Renal US: Bilateral small kidneys, also previously reported. Negative for hydronephrosis HTN DM2 CVAx3 Obesity s/p cholecystectomy Gout cardiomyopathy CHF anemia GERD Asthma Assisted living resident Plan: -Continue to monitor off abx -f/u cx -Monitor CBC/CMP, temperatures -aspiration precautions -GI f/u -supportive treatment Thank you for this consultation. Will continue to follow along with you. Discussed with Lillian Gomez M.D. Dec 27, 2019 13:31
[2019-12-27 16:00] VITALS: BP 144/68
--- NOTE | 2019-12-27 16:32 | NUR ---
CASE MANAGEMENT:REVIEW SI;GASTROENTERITIS. UTI. 98.1 86 20 145/77 97% ON RA BUN 30 CR 2.1 IS;LOPERAMIDE PO Q4 HRS PRN PEPCID PO QD BUMEX PO Q12 HRS MED SURG STATUS DCP;FROM NINO SMITH
--- NOTE | 2019-12-27 17:10 | Diagnostic Imaging Report ---
Indication: Left breast pain Technique: Grayscale and duplex images of the left breast in the area of pain Comparison: none Findings: Normal mostly fatty tissue is demonstrated. No abscess or edema demonstrated Impression: No evidence of abscess or edema Consider complete formal mammographic and sonographic for better characterization of stated clinical history of breast pain as clinically indicated
--- NOTE | 2019-12-27 18:54 | Internal Med Progress Note ---
Subjective Date of Service: Dec 27, 2019 Physician Name Aníbal Cuellar Attending Physician Christopher Villanueva MD Current Medications Medications (Trade) Dose Ordered Sig/Liss Route PRN Reason Start Time Stop Time Status Last Admin Dose Admin Acetaminophen (Tylenol) 650 mg Q4H PRN ORAL Mild Pain (Pain Scale 1-3) 12/25/19 12:15 01/24/20 12:14 12/25/19 23:27 Albuterol/ Ipratropium (Albuterol/ Ipratropium) 3 ml Q6H PRN HHN Shortness of Breath 12/25/19 12:15 12/30/19 12:14 Allopurinol (Zyloprim) 100 mg DAILY ORAL 12/26/19 09:00 01/25/20 08:59 12/27/19 09:07 Aspirin (Ecotrin) 325 mg DAILY ORAL 12/26/19 09:00 01/25/20 08:59 12/27/19 09:07 Bumetanide (Bumex) 1 mg Q12HR ORAL 12/25/19 21:00 01/24/20 20:59 12/27/19 09:06 Dextrose (Dextrose 50%) 25 ml Q30M PRN IV Hypoglycemia 12/25/19 12:15 01/24/20 12:14 Dextrose (Dextrose 50%) 50 ml Q30M PRN IV Hypoglycemia 12/25/19 12:15 01/24/20 12:14 Famotidine (Pepcid) 40 mg DAILY ORAL 12/26/19 09:00 01/25/20 08:59 12/27/19 09:06 Gabapentin (Neurontin) 300 mg QID ORAL 12/26/19 13:00 01/24/20 12:59 12/27/19 17:11 Heparin Sodium (Porcine) (Heparin 5000 units/ml) 5,000 units EVERY 12 HOURS SUBQ 12/25/19 21:00 01/24/20 20:59 12/27/19 09:10 Loperamide HCl (Imodium) 2 mg Q4H PRN ORAL Diarrhea 12/27/19 14:15 01/26/20 14:14 Metoprolol Succinate (Toprol XL) 25 mg DAILY ORAL 12/26/19 09:00 01/25/20 08:59 12/27/19 09:07 Ondansetron HCl (Zofran) 4 mg Q6H PRN IVP Nausea & Vomiting 12/25/19 12:15 01/24/20 12:14 Allergies: Coded Allergies: DIAZEPAM (Verified Allergy, Unknown, 10/07/11) HYDROCODONE (Verified Allergy, Unknown, 07/07/10) MINOXIDIL (Verified Allergy, Unknown, 07/07/10) PENICILLINS (Unverified Allergy, Unknown, 12/25/19) NAME ALERT (Verified Adverse Reaction, Unknown, 07/13/08) ROS Limited/Unobtainable: No Constitutional: Reports: no symptoms HEENT: Reports: no symptoms Cardiovascular: Reports: no symptoms Respiratory: Reports: no symptoms Gastrointestinal/Abdominal: Reports: no symptoms Genitourinary: Reports: no symptoms Neurologic/Psychiatric: Reports: no symptoms Subjective 84 YO F admitted with nausea, vomiting and diarrhea. Cover for Itn Med-DR Rich Objective Last Vital Signs Date Time Temp Pulse Resp B/P (MAP) Pulse Ox O2 Delivery O2 Flow Rate FiO2 12/27/19 16:00 97.7 72 18 144/68 (93) 97 12/27/19 09:00 Room Air Laboratory Tests Test 12/26/19 19:20 12/26/19 20:45 12/27/19 06:48 Stool Occult Blood Negative (NEGATIVE) Urine Color Pale yellow Urine Appearance Clear Urine pH 6 (4.5-8.0) Urine Specific Holden 1.015 (1.005-1.035) Urine Protein Negative (NEGATIVE) Urine Glucose (UA) Negative (NEGATIVE) Urine Ketones Negative (NEGATIVE) Urine Blood 1+ (NEGATIVE) H Urine Nitrite Negative (NEGATIVE) Urine Bilirubin Negative (NEGATIVE) Urine Urobilinogen Normal MG/DL (0.0-1.0) Urine Leukocyte Esterase 3+ (NEGATIVE) H Urine RBC 2-4 /HPF (0 - 2) H Urine WBC 10-15 /HPF (0 - 2) H Urine Squamous Epithelial Cells Moderate /LPF (NONE/OCC) H Urine Bacteria Many /HPF (NONE) H Urine Eosinophils None seen (NONE SEEN) Urine Random Sodium 102 mmol/L (20-110) Urine Potassium Timed 17 mmol/L (12-62) White Blood Count 3.8 K/UL (4.8-10.8) L Red Blood Count 3.31 M/UL (4.20-5.40) L Hemoglobin 9.8 G/DL (12.0-16.0) L Hematocrit 30.7 % (37.0-47.0) L Mean Corpuscular Volume 93 FL (80-99) Mean Corpuscular Hemoglobin 29.7 PG (27.0-31.0) Mean Corpuscular Hemoglobin Concent 32.0 G/DL (32.0-36.0) Red Cell Distribution Width 14.1 % (11.6-14.8) Platelet Count 151 K/UL (150-450) Mean Platelet Volume 5.2 FL (6.5-10.1) L Neutrophils (%) (Auto) 58.4 % (45.0-75.0) Lymphocytes (%) (Auto) 23.5 % (20.0-45.0) Monocytes (%) (Auto) 13.6 % (1.0-10.0) H Eosinophils (%) (Auto) 3.7 % (0.0-3.0) H Basophils (%) (Auto) 0.9 % (0.0-2.0) Erythrocyte Sedimentation Rate 73 MM/HR (0-30) H Reticulocyte Count 0.2 % (0.5-2.0) L Prothrombin Time 11.2 SEC (9.30-11.50) Prothromb Time International Ratio 1.1 (0.9-1.1) Activated Partial Thromboplast Time 30 SEC (23-33) Sodium Level 143 MMOL/L (136-145) Potassium Level 4.3 MMOL/L (3.5-5.1) Chloride Level 110 MMOL/L (98-107) H Carbon Dioxide Level 19 MMOL/L (21-32) L Anion Gap 14 mmol/L (5-15) Blood Urea Nitrogen 30 mg/dL (7-18) H Creatinine 2.1 MG/DL (0.55-1.30) H Estimat Glomerular Filtration Rate 27.0 mL/min (>60) Glucose Level 81 MG/DL (74-106) Calcium Level 8.7 MG/DL (8.5-10.1) Phosphorus Level 3.2 MG/DL (2.5-4.9) Magnesium Level 1.6 MG/DL (1.8-2.4) L Iron Level 20 ug/dL (50-175) L Total Iron Binding Capacity 202 ug/dL (250-450) L Percent Iron Saturation 10 % (15-50) L Unsaturated Iron Binding 182 ug/dL (112-346) Lactate Dehydrogenase 135 U/L (81-234) C-Reactive Protein, Quantitative 2.6 mg/dL (0.00-0.90) H Carcinoembryonic Antigen Pending Vitamin B12 Level 202 PG/ML (193-986) Folate 17.0 NG/ML (8.6-58.9) Microbiology Date/Time Source Procedure Growth Status 12/25/19 14:00 Stool Stool Culture - Preliminary NORMAL FECAL LUC. Resulted 12/25/19 14:00 Stool Clostridium difficile Toxin Assay - Final Complete Intake and Output 12/26/19 12/27/19 19:00 07:00 Intake Total 750 ml 0 ml Balance 750 ml 0 ml Intake Oral 750 ml 0 ml # Voids 3 # Bowel Movements 4 Objective PHYSICAL EXAMINATION: GENERAL: The patient is a well-developed and well-nourished female, in no apparent distress. HEENT: Pupils are equal and responsive to light and accommodation. Extraocular movements are intact. NECK: Supple without lymphadenopathy. CHEST: Lungs are clear to auscultation bilaterally without wheezes or rales. CARDIOVASCULAR: Regular rhythm and rate. S1, S2 are normal without murmurs, rubs, or gallops. ABDOMEN: Soft, diffusely tender with decreased bowel sounds. No evidence of hepatosplenomegaly. Currently, no rebound or guarding noted. EXTREMITIES: Negative for clubbing, cyanosis, or edema. RECTAL/GENITAL: Not performed. NEUROLOGIC: Cranial nerves II through XII are grossly intact without focal deficits. Assessment/Plan Assessment/Plan ASSESSMENT: This is a an 84-year-old female. 1. Nausea with vomiting. 2. Diarrhea. 3. Abdominal pain. 4. Diabetes type 2. 5. Congestive heart failure. 6. Hypertension. 7. Cerebrovascular disease. 8. Acute on chronic renal failure. 9. Asthma. 10. Anemia of chronic renal disease. 11. Gastroesophageal reflux disease. 12. Gout. 13. Cardiomyopathy. TREATMENT: 1. Nausea, vomiting, and diarrhea. Stool cultures are pending. The patient is tolerating a soft diet at this time. We will follow recommendations of Gastroenterology. Differential includes viral gastroenteritis versus bacterial infection secondary to food poison. 2. Diabetes type 2. A NovoLog sliding scale has been instituted. 3. Congestive heart failure. 4. Hypertension. Continue metoprolol as above. 5. Cerebrovascular disease. 6. Chronic renal failure. A Nephrology consultation has been obtained with Dr. Castillo. The patient is currently receiving intravenous fluids. We will follow recommendations of Nephrology. 7. Asthma. 8. Anemia of chronic disease. 9. Gastroesophageal reflux disease. Continue Protonix as above. 10. Gout. Continue allopurinol as above. 11. Cardiomyopathy. Aníbal Cuellar MD Dec 27, 2019 18:54
--- NOTE | 2019-12-27 19:06 | NUR ---
HAND-OFF: Report given to
--- NOTE | 2019-12-27 19:50 | NUR ---
NURSE NOTES: Received patient awake, alert, verbal, resting in bed comfortably without complaints.
[2019-12-27 20:13] VITALS: BP 113/67
[2019-12-28 00:12] VITALS: BP 118/70
[2019-12-28 04:00] VITALS: BP 137/74
[2019-12-28 06:11] LABS: HEMATOCRIT 32.2 % (37.0-47.0); HEMOGLOBIN 10.3 G/DL (12.0-16.0); MEAN CORPUSCULAR VOLUME 92 FL (80-99); PLATELET COUNT 159 K/UL (150-450); RED BLOOD COUNT 3.52 M/UL (4.20-5.40); RED CELL DISTRIBUTION WIDTH 14.2 % (11.6-14.8); WHITE BLOOD COUNT 3.3 K/UL (4.8-10.8)
[2019-12-28 06:18] LABS: ANION GAP 8 mmol/L (5-15); BLOOD UREA NITROGEN 29 mg/dL (7-18); CALCIUM 8.6 MG/DL (8.5-10.1); CARBON DIOXIDE 24 MMOL/L (21-32); CHLORIDE 112 MMOL/L (98-107); POTASSIUM 4.1 MMOL/L (3.5-5.1); SODIUM 144 MMOL/L (136-145)
--- NOTE | 2019-12-28 07:17 | NUR ---
HAND-OFF: Report given to Merly Oshea RN.
--- NOTE | 2019-12-28 07:18 | NUR ---
NURSE NOTES: received patient in bed, patient awake, alert, and oriented x4. no sign of distress, HL patent.denies pain at this time, ambulatory using a walker, with minimal assist, BLE swollen and kept elevated with pillows.on fall precaution Bed placed at the lowest with alarm, brake engaged and siderails are up x2 for safety. call light placed within reach. will continue to monitor and provide care as ordered. beverley hoffman
[2019-12-28 08:10] VITALS: BP 140/70
[2019-12-28] MEDS: Bumetanide 1mg tab ORAL SCH ×2 (08:20→21:00)
[2019-12-28] MEDS: Allopurinol 100mg Tab ORAL SCH (08:20)
[2019-12-28] MEDS: Aspirin EC 325mg tab ORAL SCH (08:20)
[2019-12-28] MEDS: Metoprolol Succinate XL 25mg tab ORAL SCH (08:20)
[2019-12-28] MEDS: Heparin 5000 units/ml inj SUBQ SCH ×2 (08:29→21:14)
[2019-12-28] MEDS: Hydrocortisone 1% Cr 30gm TOPIC SCH (10:54)
--- NOTE | 2019-12-28 11:13 | Infectious Diseases Prog Note ---
Assessment/Plan Assessment/Plan Abx: None Assessment: Viral gastroenteritis vs food intoxication -12/25 CT abd/p: Limited assessment of the GI tract, due to lack of enteric contrast administration. No definite acute abnormality. Status post cholecystectomy. Mild dilatation of the extrahepatic bile ducts, probably related to age and postcholecystectomy state as no downstream obstructive lesion is demonstrated. Basilar pulmonary interstitial septal thickening, scarring, atelectasis and bronchiectasis. Probably on the basis of chronic interstitial disease. -12/25 Cdiff neg stool cx +4 usual enteric shweta Asymptomatic bacteriuria -12/26 u/a wbc 10-15, nit neg, leuk +3; many sq cells ; ucx >100k GNR -12/25 u/a wbc 5-20, nit neg, leuk +3 Afebrile Mild leukopenia -12/25 CXR: Suspect small left pleural effusion. No definite acute process otherwise MORGAN on CKD; improving -Renal US: Bilateral small kidneys, also previously reported. Negative for hydronephrosis HTN DM2 CVAx3 Obesity s/p cholecystectomy Gout cardiomyopathy CHF anemia GERD Asthma Assisted living resident Plan: -Continue to monitor off abx unless febrile, leukocytosis and/or urinary symptoms -f/u cx -Monitor CBC/CMP, temperatures -aspiration precautions -GI f/u -supportive treatment Thank you for this consultation. Will continue to follow along with you. Discussed with RN. Subjective Allergies: Coded Allergies: DIAZEPAM (Verified Allergy, Unknown, 10/07/11) HYDROCODONE (Verified Allergy, Unknown, 07/07/10) MINOXIDIL (Verified Allergy, Unknown, 07/07/10) PENICILLINS (Unverified Allergy, Unknown, 12/25/19) NAME ALERT (Verified Adverse Reaction, Unknown, 07/13/08) Subjective afebrile no leukocytosis Objective Vital Signs Last 24 Hour Vital Signs Date Time Temp Pulse Resp B/P (MAP) Pulse Ox O2 Delivery O2 Flow Rate FiO2 12/28/19 08:50 Room Air 12/28/19 08:20 78 137/74 12/28/19 08:10 97.3 67 18 140/70 (93) 96 12/28/19 04:00 98.9 78 18 137/74 (95) 96 12/28/19 00:12 98.4 78 18 118/70 (86) 96 12/27/19 20:13 98.4 73 18 113/67 (82) 97 12/27/19 20:07 Room Air 12/27/19 16:00 97.7 72 18 144/68 (93) 97 12/27/19 12:00 98.1 64 17 147/57 (87) 97 Height (Feet): 5 Height (Inches): 4.00 Weight (Pounds): 184 Objective GENERAL: The patient is a well-developed and well-nourished female, in no apparent distress. HEENT: Pupils are equal and responsive to light and accommodation. Extraocular movements are intact. NECK: Supple without lymphadenopathy. CHEST: Lungs are clear to auscultation bilaterally without wheezes or rales. CARDIOVASCULAR: Regular rhythm and rate. S1, S2 are normal without murmurs, rubs, or gallops. ABDOMEN: Soft, diffusely tender with decreased bowel sounds. No evidence of hepatosplenomegaly. Currently, no rebound or guarding noted. EXTREMITIES: Negative for clubbing, cyanosis, or edema. Microbiology Date/Time Source Procedure Growth Status 12/25/19 14:00 Stool Stool Culture - Final NO SALMONELLA,SHIGELLA,OR CAMPYLOBACT... Complete 12/25/19 14:00 Stool Clostridium difficile Toxin Assay - Final Complete 12/26/19 20:45 Urine,Clean Catch Urine Culture - Preliminary Gram Negative Bacillus 1 Resulted Laboratory Tests Test 12/28/19 05:54 White Blood Count 3.3 K/UL (4.8-10.8) L Red Blood Count 3.52 M/UL (4.20-5.40) L Hemoglobin 10.3 G/DL (12.0-16.0) L Hematocrit 32.2 % (37.0-47.0) L Mean Corpuscular Volume 92 FL (80-99) Mean Corpuscular Hemoglobin 29.3 PG (27.0-31.0) Mean Corpuscular Hemoglobin Concent 31.9 G/DL (32.0-36.0) L Red Cell Distribution Width 14.2 % (11.6-14.8) Platelet Count 159 K/UL (150-450) Mean Platelet Volume 5.0 FL (6.5-10.1) L Neutrophils (%) (Auto) % (45.0-75.0) Lymphocytes (%) (Auto) % (20.0-45.0) Monocytes (%) (Auto) % (1.0-10.0) Eosinophils (%) (Auto) % (0.0-3.0) Basophils (%) (Auto) % (0.0-2.0) Sodium Level 144 MMOL/L (136-145) Potassium Level 4.1 MMOL/L (3.5-5.1) Chloride Level 112 MMOL/L (98-107) H Carbon Dioxide Level 24 MMOL/L (21-32) Anion Gap 8 mmol/L (5-15) Blood Urea Nitrogen 29 mg/dL (7-18) H Creatinine 2.0 MG/DL (0.55-1.30) H Estimat Glomerular Filtration Rate 28.6 mL/min (>60) Glucose Level 89 MG/DL (74-106) Calcium Level 8.6 MG/DL (8.5-10.1) Current Medications Medications (Trade) Dose Ordered Sig/Liss Route PRN Reason Start Time Stop Time Status Last Admin Dose Admin Acetaminophen (Tylenol) 650 mg Q4H PRN ORAL Mild Pain (Pain Scale 1-3) 12/25/19 12:15 01/24/20 12:14 12/25/19 23:27 Albuterol/ Ipratropium (Albuterol/ Ipratropium) 3 ml Q6H PRN HHN Shortness of Breath 12/25/19 12:15 12/30/19 12:14 Allopurinol (Zyloprim) 100 mg DAILY ORAL 12/26/19 09:00 01/25/20 08:59 12/28/19 08:20 Aspirin (Ecotrin) 325 mg DAILY ORAL 12/26/19 09:00 01/25/20 08:59 12/28/19 08:20 Bumetanide (Bumex) 1 mg Q12HR ORAL 12/25/19 21:00 01/24/20 20:59 12/28/19 08:20 Dextrose (Dextrose 50%) 25 ml Q30M PRN IV Hypoglycemia 12/25/19 12:15 01/24/20 12:14 Dextrose (Dextrose 50%) 50 ml Q30M PRN IV Hypoglycemia 12/25/19 12:15 01/24/20 12:14 Famotidine (Pepcid) 40 mg DAILY ORAL 12/26/19 09:00 01/25/20 08:59 12/28/19 08:20 Gabapentin (Neurontin) 300 mg QID ORAL 12/26/19 13:00 01/24/20 12:59 12/28/19 08:29 Heparin Sodium (Porcine) (Heparin 5000 units/ml) 5,000 units EVERY 12 HOURS SUBQ 12/25/19 21:00 01/24/20 20:59 12/28/19 08:29 Hydrocortisone (Hydrocortisone) 1 applic DAILY TOPIC 12/28/19 10:00 01/27/20 09:59 12/28/19 10:54 Loperamide HCl (Imodium) 2 mg Q4H PRN ORAL Diarrhea 12/27/19 14:15 01/26/20 14:14 Metoprolol Succinate (Toprol XL) 25 mg DAILY ORAL 12/26/19 09:00 01/25/20 08:59 12/28/19 08:20 Ondansetron HCl (Zofran) 4 mg Q6H PRN IVP Nausea & Vomiting 12/25/19 12:15 01/24/20 12:14 Lillian Moss M.D. Dec 28, 2019 11:13
[2019-12-28 11:57] VITALS: BP 147/72
--- NOTE | 2019-12-28 13:18 | Pulmonology Progress Note ---
Assessment/Plan Problems: (1) UTI (urinary tract infection) (2) Nausea, vomiting, and diarrhea (3) Peripheral edema (4) Asthma (5) Gastroenteritis (6) Anemia (7) CKD (chronic kidney disease) (8) Cardiomyopathy (9) GERD (gastroesophageal reflux disease) (10) Gout (11) HTN (hypertension) (12) Cerebral vascular disease (13) Diabetes mellitus Assessment/Plan c/o swelling in Left breast, will get US or mammogram improving check echo, EF 60, PA 40, mild pulmonary hypertension venous doppler of legs anemia w/u including OB of stool renal w/u GI evaluation symptomatic treatment Subjective ROS Limited/Unobtainable: No Constitutional: Reports: no symptoms HEENT: Repors: no symptoms Respiratory: Reports: no symptoms Allergies: Coded Allergies: DIAZEPAM (Verified Allergy, Unknown, 10/07/11) HYDROCODONE (Verified Allergy, Unknown, 07/07/10) MINOXIDIL (Verified Allergy, Unknown, 07/07/10) PENICILLINS (Unverified Allergy, Unknown, 12/25/19) NAME ALERT (Verified Adverse Reaction, Unknown, 07/13/08) Objective Last 24 Hour Vital Signs Date Time Temp Pulse Resp B/P (MAP) Pulse Ox O2 Delivery O2 Flow Rate FiO2 12/28/19 11:57 97.4 73 18 147/72 (97) 98 12/28/19 08:50 Room Air 12/28/19 08:20 78 137/74 12/28/19 08:10 97.3 67 18 140/70 (93) 96 12/28/19 04:00 98.9 78 18 137/74 (95) 96 12/28/19 00:12 98.4 78 18 118/70 (86) 96 12/27/19 20:13 98.4 73 18 113/67 (82) 97 12/27/19 20:07 Room Air 12/27/19 16:00 97.7 72 18 144/68 (93) 97 Intake and Output 12/27/19 12/28/19 18:59 06:59 Intake Total 780 ml Balance 780 ml Intake Oral 780 ml # Voids 3 1 General Appearance: WD/WN HEENT: normocephalic, atraumatic Respiratory/Chest: chest wall non-tender, lungs clear Breasts: no masses Cardiovascular: normal peripheral pulses Abdomen: normal bowel sounds, no organomegaly Genitourinary: normal external genitalia Extremities: no cyanosis Skin: no rash Neurologic/Psychiatric: undercoater II-XII grossly normal Microbiology Date/Time Source Procedure Growth Status 12/25/19 14:00 Stool Stool Culture - Final NO SALMONELLA,SHIGELLA,OR CAMPYLOBACT... Complete 12/25/19 14:00 Stool Clostridium difficile Toxin Assay - Final Complete 12/26/19 20:45 Urine,Clean Catch Urine Culture - Preliminary Gram Negative Bacillus 1 Resulted Laboratory Tests 12/28/19 05:54: White Blood Count 3.3L, Red Blood Count 3.52L, Hemoglobin 10.3L, Hematocrit 32.2L, Mean Corpuscular Volume 92, Mean Corpuscular Hemoglobin 29.3, Mean Corpuscular Hemoglobin Concent 31.9L, Red Cell Distribution Width 14.2, Platelet Count 159, Mean Platelet Volume 5.0L, Neutrophils (%) (Auto) , Lymphocytes (%) (Auto) , Monocytes (%) (Auto) , Eosinophils (%) (Auto) , Basophils (%) (Auto) , Sodium Level 144, Potassium Level 4.1, Chloride Level 112H, Carbon Dioxide Level 24, Anion Gap 8, Blood Urea Nitrogen 29H, Creatinine 2.0H, Estimat Glomerular Filtration Rate 28.6, Glucose Level 89, Calcium Level 8.6 Current Medications Medications (Trade) Dose Ordered Sig/Liss Route PRN Reason Start Time Stop Time Status Last Admin Dose Admin Acetaminophen (Tylenol) 650 mg Q4H PRN ORAL Mild Pain (Pain Scale 1-3) 12/25/19 12:15 01/24/20 12:14 12/25/19 23:27 Albuterol/ Ipratropium (Albuterol/ Ipratropium) 3 ml Q6H PRN HHN Shortness of Breath 12/25/19 12:15 12/30/19 12:14 Allopurinol (Zyloprim) 100 mg DAILY ORAL 12/26/19 09:00 01/25/20 08:59 12/28/19 08:20 Aspirin (Ecotrin) 325 mg DAILY ORAL 12/26/19 09:00 01/25/20 08:59 12/28/19 08:20 Bumetanide (Bumex) 1 mg Q12HR ORAL 12/25/19 21:00 01/24/20 20:59 12/28/19 08:20 Dextrose (Dextrose 50%) 25 ml Q30M PRN IV Hypoglycemia 12/25/19 12:15 01/24/20 12:14 Dextrose (Dextrose 50%) 50 ml Q30M PRN IV Hypoglycemia 12/25/19 12:15 01/24/20 12:14 Famotidine (Pepcid) 40 mg DAILY ORAL 12/26/19 09:00 01/25/20 08:59 12/28/19 08:20 Gabapentin (Neurontin) 300 mg QID ORAL 12/26/19 13:00 01/24/20 12:59 12/28/19 12:24 Heparin Sodium (Porcine) (Heparin 5000 units/ml) 5,000 units EVERY 12 HOURS SUBQ 12/25/19 21:00 01/24/20 20:59 12/28/19 08:29 Hydrocortisone (Hydrocortisone) 1 applic DAILY TOPIC 12/28/19 10:00 01/27/20 09:59 12/28/19 10:54 Loperamide HCl (Imodium) 2 mg Q4H PRN ORAL Diarrhea 12/27/19 14:15 01/26/20 14:14 Metoprolol Succinate (Toprol XL) 25 mg DAILY ORAL 12/26/19 09:00 01/25/20 08:59 12/28/19 08:20 Ondansetron HCl (Zofran) 4 mg Q6H PRN IVP Nausea & Vomiting 12/25/19 12:15 01/24/20 12:14 Roberta Durán MD Dec 28, 2019 13:18
[2019-12-28 16:00] VITALS: BP 147/72
--- NOTE | 2019-12-28 19:18 | NUR ---
HAND-OFF: Report given to Ms Lujan , patient resting comfortably in bed SOPHIA DOMINGUZE
--- NOTE | 2019-12-28 19:21 | Internal Med Progress Note ---
Subjective Date of Service: Dec 28, 2019 Physician Name AlisaAníbal Attending Physician Christopher Villanueva MD Current Medications Medications (Trade) Dose Ordered Sig/Liss Route PRN Reason Start Time Stop Time Status Last Admin Dose Admin Acetaminophen (Tylenol) 650 mg Q4H PRN ORAL Mild Pain (Pain Scale 1-3) 12/25/19 12:15 01/24/20 12:14 12/25/19 23:27 Albuterol/ Ipratropium (Albuterol/ Ipratropium) 3 ml Q6H PRN HHN Shortness of Breath 12/25/19 12:15 12/30/19 12:14 Allopurinol (Zyloprim) 100 mg DAILY ORAL 12/26/19 09:00 01/25/20 08:59 12/28/19 08:20 Aspirin (Ecotrin) 325 mg DAILY ORAL 12/26/19 09:00 01/25/20 08:59 12/28/19 08:20 Bumetanide (Bumex) 1 mg Q12HR ORAL 12/25/19 21:00 01/24/20 20:59 12/28/19 08:20 Dextrose (Dextrose 50%) 25 ml Q30M PRN IV Hypoglycemia 12/25/19 12:15 01/24/20 12:14 Dextrose (Dextrose 50%) 50 ml Q30M PRN IV Hypoglycemia 12/25/19 12:15 01/24/20 12:14 Famotidine (Pepcid) 40 mg DAILY ORAL 12/26/19 09:00 01/25/20 08:59 12/28/19 08:20 Gabapentin (Neurontin) 300 mg QID ORAL 12/26/19 13:00 01/24/20 12:59 12/28/19 17:06 Heparin Sodium (Porcine) (Heparin 5000 units/ml) 5,000 units EVERY 12 HOURS SUBQ 12/25/19 21:00 01/24/20 20:59 12/28/19 08:29 Hydrocortisone (Hydrocortisone) 1 applic DAILY TOPIC 12/28/19 10:00 01/27/20 09:59 12/28/19 10:54 Iron Sucrose 100 mg/Sodium Chloride 60 ml @ 240 mls/hr BEDTIME IV 12/28/19 21:00 01/01/20 21:14 Loperamide HCl (Imodium) 2 mg Q4H PRN ORAL Diarrhea 12/27/19 14:15 01/26/20 14:14 Metoprolol Succinate (Toprol XL) 25 mg DAILY ORAL 12/26/19 09:00 01/25/20 08:59 12/28/19 08:20 Ondansetron HCl (Zofran) 4 mg Q6H PRN IVP Nausea & Vomiting 12/25/19 12:15 01/24/20 12:14 Allergies: Coded Allergies: DIAZEPAM (Verified Allergy, Unknown, 10/07/11) HYDROCODONE (Verified Allergy, Unknown, 07/07/10) MINOXIDIL (Verified Allergy, Unknown, 07/07/10) PENICILLINS (Unverified Allergy, Unknown, 12/25/19) NAME ALERT (Verified Adverse Reaction, Unknown, 07/13/08) ROS Limited/Unobtainable: Yes Subjective 84 YO F admitted with nausea, vomiting and diarrhea. Cover for Itn Med-DR Rich Objective Last Vital Signs Date Time Temp Pulse Resp B/P (MAP) Pulse Ox O2 Delivery O2 Flow Rate FiO2 12/28/19 16:00 97.4 67 18 147/72 (97) 97 12/28/19 08:50 Room Air Laboratory Tests Test 12/28/19 05:54 White Blood Count 3.3 K/UL (4.8-10.8) L Red Blood Count 3.52 M/UL (4.20-5.40) L Hemoglobin 10.3 G/DL (12.0-16.0) L Hematocrit 32.2 % (37.0-47.0) L Mean Corpuscular Volume 92 FL (80-99) Mean Corpuscular Hemoglobin 29.3 PG (27.0-31.0) Mean Corpuscular Hemoglobin Concent 31.9 G/DL (32.0-36.0) L Red Cell Distribution Width 14.2 % (11.6-14.8) Platelet Count 159 K/UL (150-450) Mean Platelet Volume 5.0 FL (6.5-10.1) L Neutrophils (%) (Auto) % (45.0-75.0) Lymphocytes (%) (Auto) % (20.0-45.0) Monocytes (%) (Auto) % (1.0-10.0) Eosinophils (%) (Auto) % (0.0-3.0) Basophils (%) (Auto) % (0.0-2.0) Sodium Level 144 MMOL/L (136-145) Potassium Level 4.1 MMOL/L (3.5-5.1) Chloride Level 112 MMOL/L (98-107) H Carbon Dioxide Level 24 MMOL/L (21-32) Anion Gap 8 mmol/L (5-15) Blood Urea Nitrogen 29 mg/dL (7-18) H Creatinine 2.0 MG/DL (0.55-1.30) H Estimat Glomerular Filtration Rate 28.6 mL/min (>60) Glucose Level 89 MG/DL (74-106) Calcium Level 8.6 MG/DL (8.5-10.1) Microbiology Date/Time Source Procedure Growth Status 12/26/19 20:45 Urine,Clean Catch Urine Culture - Preliminary Gram Negative Bacillus 1 Resulted Intake and Output 12/27/19 12/28/19 19:00 07:00 Intake Total 780 ml Balance 780 ml Intake Oral 780 ml # Voids 3 1 Objective PHYSICAL EXAMINATION: GENERAL: The patient is a well-developed and well-nourished female, in no apparent distress. HEENT: Pupils are equal and responsive to light and accommodation. Extraocular movements are intact. NECK: Supple without lymphadenopathy. CHEST: Lungs are clear to auscultation bilaterally without wheezes or rales. CARDIOVASCULAR: Regular rhythm and rate. S1, S2 are normal without murmurs, rubs, or gallops. ABDOMEN: Soft, diffusely tender with decreased bowel sounds. No evidence of hepatosplenomegaly. Currently, no rebound or guarding noted. EXTREMITIES: Negative for clubbing, cyanosis, or edema. RECTAL/GENITAL: Not performed. NEUROLOGIC: Cranial nerves II through XII are grossly intact without focal deficits. Assessment/Plan Assessment/Plan ASSESSMENT: This is a an 84-year-old female. 1. Nausea with vomiting. 2. Diarrhea. 3. Abdominal pain. 4. Diabetes type 2. 5. Congestive heart failure. 6. Hypertension. 7. Cerebrovascular disease. 8. Acute on chronic renal failure. 9. Asthma. 10. Anemia of chronic renal disease. 11. Gastroesophageal reflux disease. 12. Gout. 13. Cardiomyopathy. TREATMENT: 1. Nausea, vomiting, and diarrhea. Stool cultures are pending. The patient is tolerating a soft diet at this time. We will follow recommendations of Gastroenterology. Differential includes viral gastroenteritis versus bacterial infection secondary to food poison. 2. Diabetes type 2. A NovoLog sliding scale has been instituted. 3. Congestive heart failure. 4. Hypertension. Continue metoprolol as above. 5. Cerebrovascular disease. 6. Chronic renal failure. A Nephrology consultation has been obtained with Dr. Castillo. The patient is currently receiving intravenous fluids. We will follow recommendations of Nephrology. 7. Asthma. 8. Anemia of chronic disease. 9. Gastroesophageal reflux disease. Continue Protonix as above. 10. Gout. Continue allopurinol as above. 11. Cardiomyopathy. Aníbal Cuellar MD Dec 28, 2019 19:21
--- NOTE | 2019-12-28 19:33 | NUR ---
NURSE NOTES: Patient is in bed, awake and alert x4. No signs of distress or SOB. IV intact. No c/o pain at this time. Bed locked and in lowest position. Walker at bedside and easily accessible. Call light in reach. Will continue to monitor.
[2019-12-28 20:00] VITALS: BP 143/70
[2019-12-28] MEDS: Iron Sucrose 100 MG in NS 55 ML IV SCH (21:10)
[2019-12-29] VITALS: BP 152/63
[2019-12-29 04:00] VITALS: BP 147/81
--- NOTE | 2019-12-29 07:11 | NUR ---
HAND-OFF: Report given to SOPHIA Moreland.
[2019-12-29 07:13] LABS: HEMATOCRIT 32.2 % (37.0-47.0); HEMOGLOBIN 10.2 G/DL (12.0-16.0); MEAN CORPUSCULAR VOLUME 93 FL (80-99); PLATELET COUNT 159 K/UL (150-450); RED BLOOD COUNT 3.48 M/UL (4.20-5.40); RED CELL DISTRIBUTION WIDTH 14.3 % (11.6-14.8); WHITE BLOOD COUNT 3.4 K/UL (4.8-10.8)
--- NOTE | 2019-12-29 07:15 | NUR ---
NURSE NOTES: received patient in bed, patient awake, alert, and oriented x4. no sign of distress, .denies pain at this time, ambulatory using a walker, with minimal assist, BLE swollen and kept elevated with pillows.on fall precaution Bed placed at the lowest with alarm, brake engaged and siderails are up x2 for safety. call light placed within reach. will continue to monitor and provide care as ordered. beverley hoffman
[2019-12-29 07:53] VITALS: BP 136/66
--- NOTE | 2019-12-29 07:54 | Consultation ---
Consult Note Consult Note asked to eval at the request of Dr Cuellar Full note to follow Assessment/Plan # [id number] Rafael Castillo MD Dec 29, 2019 07:54
[2019-12-29 08:00] LABS: ANION GAP 13 mmol/L (5-15); BLOOD UREA NITROGEN 25 mg/dL (7-18); CALCIUM 8.7 MG/DL (8.5-10.1); CARBON DIOXIDE 21 MMOL/L (21-32); CHLORIDE 112 MMOL/L (98-107); CREATININE 1.8 MG/DL (0.55-1.30); POTASSIUM 4.6 MMOL/L (3.5-5.1); SODIUM 145 MMOL/L (136-145)
[2019-12-29 08:23] LABS: ANION GAP 12 mmol/L (5-15); BLOOD UREA NITROGEN 24 mg/dL (7-18); CALCIUM 8.5 MG/DL (8.5-10.1); CARBON DIOXIDE 21 MMOL/L (21-32); CHLORIDE 113 MMOL/L (98-107); CREATININE 1.1 MG/DL (0.55-1.30); POTASSIUM 4.5 MMOL/L (3.5-5.1); SODIUM 146 MMOL/L (136-145)
[2019-12-29 08:34] LABS: ALANINE AMINOTRANSFERASE < 6 U/L (12-78); ALBUMIN 2.2 G/DL (3.4-5.0); ALBUMIN/GLOBULIN RATIO 0.5 (1.0-2.7); ALKALINE PHOSPHATASE 112 U/L (46-116); ASPARTATE AMINO TRANSFERASE 31 U/L (15-37); BILIRUBIN,TOTAL < 0.1 MG/DL (0.2-1.0); CREATINE KINASE 60 U/L (26-308); GAMMA GLUTAMYL TRANSPEPTIDASE 15 U/L (5-85); PHOSPHORUS 3.1 MG/DL (2.5-4.9)
[2019-12-29] MEDS: Aspirin EC 325mg tab ORAL SCH (08:38)
[2019-12-29] MEDS: Hydrocortisone 1% Cr 30gm TOPIC SCH (08:38)
[2019-12-29] MEDS: Allopurinol 100mg Tab ORAL SCH (08:38)
[2019-12-29] MEDS: Bumetanide 1mg tab ORAL SCH (08:39)
[2019-12-29] MEDS: Metoprolol Succinate XL 25mg tab ORAL SCH ×2 (08:39→20:59)
[2019-12-29] MEDS: Heparin 5000 units/ml inj SUBQ SCH ×2 (08:40→21:26)
[2019-12-29] MEDS: Magnesium Oxide 400mg tab ORAL SCH ×2 (11:31→17:19)
[2019-12-29 11:32] VITALS: BP 128/65
[2019-12-29] MEDS ORDERED: Heparin1,000 units/500ml Premix(Conc:2 units/ml) IV SCH (12:00)
[2019-12-29] MEDS ORDERED: Lidocaine 1% Plain 30 ml INJ SCH (12:00)
--- NOTE | 2019-12-29 12:34 | Infectious Diseases Prog Note ---
Assessment/Plan Assessment/Plan Assessment: Viral gastroenteritis vs food intoxication; resolved -12/25 CT abd/p: Limited assessment of the GI tract, due to lack of enteric contrast administration. No definite acute abnormality. Status post cholecystectomy. Mild dilatation of the extrahepatic bile ducts, probably related to age and postcholecystectomy state as no downstream obstructive lesion is demonstrated. Basilar pulmonary interstitial septal thickening, scarring, atelectasis and bronchiectasis. Probably on the basis of chronic interstitial disease. -12/25 Cdiff neg stool cx +4 usual enteric shweta Asymptomatic bacteriuria -12/26 u/a wbc 10-15, nit neg, leuk +3; many sq cells ; ucx >100k E.coli (R cipro/levo; otherwise S); colonizer -12/25 u/a wbc 5-20, nit neg, leuk +3 Afebrile Mild leukopenia -12/25 CXR: Suspect small left pleural effusion. No definite acute process otherwise MORGAN on CKD; SP -Renal US: Bilateral small kidneys, also previously reported. Negative for hydronephrosis HTN DM2 CVAx3 Obesity s/p cholecystectomy Gout cardiomyopathy CHF anemia GERD Asthma Assisted living resident Plan: -Continue to monitor off abx unless febrile, leukocytosis and/or urinary symptoms -f/u cx -Monitor CBC/CMP, temperatures -aspiration precautions -GI f/u -supportive treatment Thank you for this consultation. Will continue to follow along with you. Discussed with RN. Subjective Allergies: Coded Allergies: DIAZEPAM (Verified Allergy, Unknown, 10/07/11) HYDROCODONE (Verified Allergy, Unknown, 07/07/10) MINOXIDIL (Verified Allergy, Unknown, 07/07/10) PENICILLINS (Unverified Allergy, Unknown, 12/25/19) NAME ALERT (Verified Adverse Reaction, Unknown, 07/13/08) Subjective afebrile no leukocytosis Objective Vital Signs Last 24 Hour Vital Signs Date Time Temp Pulse Resp B/P (MAP) Pulse Ox O2 Delivery O2 Flow Rate FiO2 12/29/19 11:32 97.4 73 18 128/65 (86) 92 12/29/19 08:40 Room Air 12/29/19 08:39 73 136/66 12/29/19 07:53 98.2 73 20 136/66 (89) 96 12/29/19 04:00 97.3 73 20 147/81 (103) 97 12/29/19 00:00 97.0 69 17 152/63 (92) 97 12/28/19 20:05 Room Air 12/28/19 20:00 97.5 69 18 143/70 (94) 97 12/28/19 16:00 97.4 67 18 147/72 (97) 97 Height (Feet): 5 Height (Inches): 4.00 Weight (Pounds): 184 Objective GENERAL: no apparent distress. HEENT: Pupils are equal and responsive to light and accommodation. Extraocular movements are intact. NECK: Supple without lymphadenopathy. CHEST: Lungs are clear to auscultation bilaterally without wheezes or rales. CARDIOVASCULAR: Regular rhythm and rate. S1, S2 are normal without murmurs, rubs, or gallops. ABDOMEN: Soft, non tender EXTREMITIES: Negative for clubbing, cyanosis, or edema. Microbiology Date/Time Source Procedure Growth Status 12/26/19 20:45 Urine,Clean Catch Urine Culture - Final Escherichia Coli Complete Laboratory Tests Test 12/29/19 06:35 White Blood Count 3.4 K/UL (4.8-10.8) L Red Blood Count 3.48 M/UL (4.20-5.40) L Hemoglobin 10.2 G/DL (12.0-16.0) L Hematocrit 32.2 % (37.0-47.0) L Mean Corpuscular Volume 93 FL (80-99) Mean Corpuscular Hemoglobin 29.2 PG (27.0-31.0) Mean Corpuscular Hemoglobin Concent 31.5 G/DL (32.0-36.0) L Red Cell Distribution Width 14.3 % (11.6-14.8) Platelet Count 159 K/UL (150-450) Mean Platelet Volume 5.3 FL (6.5-10.1) L Neutrophils (%) (Auto) % (45.0-75.0) Lymphocytes (%) (Auto) % (20.0-45.0) Monocytes (%) (Auto) % (1.0-10.0) Eosinophils (%) (Auto) % (0.0-3.0) Basophils (%) (Auto) % (0.0-2.0) Differential Total Cells Counted 100 Neutrophils % (Manual) 50 % (45-75) Lymphocytes % (Manual) 33 % (20-45) Monocytes % (Manual) 15 % (1-10) H Eosinophils % (Manual) 2 % (0-3) Basophils % (Manual) 0 % (0-2) Band Neutrophils 0 % (0-8) Platelet Estimate Adequate Platelet Morphology Normal Anisocytosis 1+ Sodium Level 146 MMOL/L (136-145) H Potassium Level 4.5 MMOL/L (3.5-5.1) Chloride Level 113 MMOL/L (98-107) H Carbon Dioxide Level 21 MMOL/L (21-32) Anion Gap 12 mmol/L (5-15) Blood Urea Nitrogen 24 mg/dL (7-18) H Creatinine 1.1 MG/DL (0.55-1.30) Estimat Glomerular Filtration Rate 57.1 mL/min (>60) Glucose Level 91 MG/DL (74-106) Uric Acid 8.5 MG/DL (2.6-7.2) H Calcium Level 8.5 MG/DL (8.5-10.1) Phosphorus Level 3.1 MG/DL (2.5-4.9) Magnesium Level 1.5 MG/DL (1.8-2.4) L Ferritin 39 NG/ML (8-388) Total Bilirubin < 0.1 MG/DL (0.2-1.0) L Gamma Glutamyl Transpeptidase 15 U/L (5-85) Aspartate Amino Transf (AST/SGOT) 31 U/L (15-37) Alanine Aminotransferase (ALT/SGPT) < 6 U/L (12-78) L Alkaline Phosphatase 112 U/L (46-116) Total Creatine Kinase 60 U/L (26-308) C-Reactive Protein, Quantitative < 0.4 mg/dL (0.00-0.90) Pro-B-Type Natriuretic Peptide 1690 pg/mL (0-125) H Total Protein 6.7 G/DL (6.4-8.2) Albumin 2.2 G/DL (3.4-5.0) L Globulin 4.5 g/dL Albumin/Globulin Ratio 0.5 (1.0-2.7) L Vitamin B12 Level 231 PG/ML (193-986) Thyroid Stimulating Hormone (TSH) 2.448 uiU/mL (0.358-3.740) Current Medications Medications (Trade) Dose Ordered Sig/Liss Route PRN Reason Start Time Stop Time Status Last Admin Dose Admin Acetaminophen (Tylenol) 650 mg Q4H PRN ORAL Mild Pain (Pain Scale 1-3) 12/25/19 12:15 01/24/20 12:14 12/25/19 23:27 Albuterol/ Ipratropium (Albuterol/ Ipratropium) 3 ml Q6H PRN HHN Shortness of Breath 12/25/19 12:15 12/30/19 12:14 Allopurinol (allopurinoL) 300 mg DAILY ORAL 12/30/19 09:00 01/29/20 08:59 Aspirin (Ecotrin) 325 mg DAILY ORAL 12/26/19 09:00 01/25/20 08:59 12/29/19 08:38 Chlorhexidine Gluconate (Katey-Hex 2%) 1 applic DAILY@2000 TOPIC 12/29/19 20:00 01/28/20 19:59 UNV Dextrose (Dextrose 50%) 25 ml Q30M PRN IV Hypoglycemia 12/25/19 12:15 01/24/20 12:14 Dextrose (Dextrose 50%) 50 ml Q30M PRN IV Hypoglycemia 12/25/19 12:15 01/24/20 12:14 Famotidine (Pepcid) 40 mg DAILY ORAL 12/26/19 09:00 01/25/20 08:59 12/29/19 08:38 Gabapentin (Neurontin) 300 mg QID ORAL 12/26/19 13:00 01/24/20 12:59 12/29/19 12:15 Heparin Sodium (Porcine) (Heparin 5000 units/ml) 5,000 units EVERY 12 HOURS SUBQ 12/25/19 21:00 01/24/20 20:59 12/29/19 08:40 Heparin Sodium/ Sodium Chloride (Heparin 1000 units/500ml Premix) 1,000 unit ONCE ONCE IV 12/29/19 12:00 12/29/19 12:01 UNV Hydrocortisone (Hydrocortisone) 1 applic DAILY TOPIC 12/28/19 10:00 01/27/20 09:59 12/29/19 08:38 Iron Sucrose 100 mg/Sodium Chloride 60 ml @ 240 mls/hr BEDTIME IV 12/28/19 21:00 01/01/20 21:14 12/28/19 21:10 Lidocaine HCl (Xylocaine 1% 30ml) 30 ml ONCE ONCE INJ 12/29/19 12:00 12/29/19 12:01 UNV Loperamide HCl (Imodium) 2 mg Q4H PRN ORAL Diarrhea 12/27/19 14:15 01/26/20 14:14 Magnesium Oxide (Mag-Ox 400mg) 400 mg BID ORAL 12/29/19 11:15 01/28/20 11:14 12/29/19 11:31 Metoprolol Succinate (Toprol XL) 12.5 mg Q12HR ORAL 12/29/19 21:00 01/25/20 08:59 Ondansetron HCl (Zofran) 4 mg Q6H PRN IVP Nausea & Vomiting 12/25/19 12:15 01/24/20 12:14 Lillian Moss M.D. Dec 29, 2019 12:34
--- NOTE | 2019-12-29 14:45 | Consultation ---
DATE OF CONSULTATION: 12/29/2019 RENAL CONSULTATION CONSULTING PHYSICIAN: Rafael Castillo M.D. HISTORY OF PRESENT ILLNESS: I was asked to evaluate the patient at the request of Dr. Cuellar for renal failure. The patient originally referred to emergency room on 12/25/2019 with nausea and vomiting and diarrhea. Apparently, she related that to the chicken sandwich that she was eating in the facility that she was residing. PAST HISTORY: Apparently significant for hypertension, asthma, diabetes, previous CVA, and overall weakness. ALLERGIES: To Valium, hydrocodone, minoxidil, and penicillin. During the course of hospitalization, the patient was managed by primary physician and Infectious Disease payroll consultant. PHYSICAL EXAMINATION: VITAL SIGNS: On examination today, the patient is afebrile, pulse rate is 73, respiratory rate 20, blood pressure 136/66. GENERAL: Not in any distress. HEENT: Head normocephalic. Sclerae not icteric. LUNGS: No wheeze. HEART: Regular. ABDOMEN: Slightly distended. However soft. EXTREMITIES: No leg edema. LABORATORY DATA: On admission, initial creatinine was 2.4. Today, it is down to 1.8. Magnesium is 1.5. White blood cells are 3.4, hemoglobin 10.2, and platelet count is 159. Kidney ultrasound, bilateral small kidney, no hydronephrosis. Breast ultrasound is negative. CT of the abdomen, status post cholecystectomy, bibasilar interstitial septal thickening in the pulmonary area, hiatus hernia, prior hysterectomy, degenerative spondylosis. IMPRESSION: 1. Acute renal failure superimposed on chronic renal insufficiency. 2. Electrolyte imbalances. 3. Status post GI pathology, which she was either secondary to gastroenteritis versus food intoxication. 4. Evidence of UTI. 5. Mild leukopenia and anemia. 6. Her other conditions include hypertension, obesity, previous CVA, previous cholecystectomy, gout, cardiomyopathy, and gastroesophageal reflux disease. PLAN: Continue to monitor renal parameters. Urine studies. Avoid nephrotoxics. Keep the blood pressure and blood sugar in check. Correct abnormal electrolytes. According to how the patient's condition evolves, we make the proper changes in our future management. Rafael Castillo M.D. DR: REGINE JOB#: [id number] CC:
--- NOTE | 2019-12-29 14:48 | NUR ---
RADIOLOGY NOTE: RIGHT UPPER EXTREMITY PICC PLACED.
--- NOTE | 2019-12-29 14:53 | Pre-Procedure Note/Attestation ---
Pre-Procedure Note/Attestation Complete Prior to Procedure Planned Procedure: not applicable Procedure Narrative: PICC Indications for Procedure Pre-Operative Diagnosis: needs central IV access Attestation I attest that I discussed the nature of the procedure; its benefits; risks and complications; and alternatives (and the risks and benefits of such alternatives ), prior to the procedure, with the patient (or the patient's legal medical sales representative). I attest that, if there was a reasonable possibility of needing a blood transfusion, the patient (or the patient's legal medical sales representative) was given the [facility] standardized written summary, pursuant to the [place] Blood Safety Act ([place] Health and Safety Code # 1645, as amended). I attest that I re-evaluated the patient just prior to the surgery and that there has been no change in the patient's H&P, except as documented below: Ernesto Will MD Dec 29, 2019 14:53
--- NOTE | 2019-12-29 14:54 | Brief Operative Note ---
Immediate Post Operative Note Operative Note Pre-op Diagnosis: needs central IV access Procedure: PICC R basilic Post-op Diagnosis: same as pre-op Surgeon: Crow Lazo Specimen: none Complications: none Condition: stable Fluids: NONE Implant(s) used?: No Ernesto Lazo MD Dec 29, 2019 14:54
--- NOTE | 2019-12-29 14:58 | NUR ---
RD ASSESSMENT & RECOMMENDATIONS SEE CARE ACTIVITY FOR COMPLETE ASSESSMENT DAILY ESTIMATED NEEDS: Needs based on Cardiac, DM/ 58kg abw 25-30 kcals/kg 4564-1212 total kcals 1-1.3 g protein/kg 58-75 g total protein 25-30 mL/kg 1705-3301 total fluid mLs NUTRITION DIAGNOSIS: * Altered nutrition related lab values R/T h/ o DM, clinical condition as evidenced by A1C of 6.3, BNP (1690) CURRENT DIET:CCHO MED, SOFT PO DIET RECOMMENDATIONS: Low Na+ CCHO Med (texture per SKIP MINER) ADDITIONAL RECOMMENDATIONS: * Standing wt as able * Monitor lytes daily, replete as needed (low mag) * SKIP MINER eval for appropriate texture: h/o CVA x 3 * Monitor BGs, need for hypoglycemics- h/o DM, A1C 6.3 * Monitor PO tolerance: admitted w/ c/o N/V/D
[2019-12-29 15:39] VITALS: BP 139/71
--- NOTE | 2019-12-29 16:58 | NUR ---
CASE MANAGEMENT:REVIEW SI;AC/CHR RENAL FAILURE. ASTHMA. CHF. N/V/D. GOUT. 98.2 99 20 147/81 92% ON RA NA+ 146 CL 113 BUN 24 UR ACID 8.5 BNP 1690 ALB 2.2 IS;ALLOPURINOL PO QD CHRISTIE-HEX TOP QD HEPARIN IV ONCE MAG OX PO BID IRON SUCROSE IV HS LOPERAMIDE PO Q4 HRS PRN DUO NEB HHN Q6 HRT MED SURG STATUS DC PLAN;FROM NINO SMITH
--- NOTE | 2019-12-29 16:59 | Diagnostic Imaging Report ---
Indications: Needs long-term IV access Technique: Ultrasound confirms patent compressible right distal vein. Total sterile technique, including sterile probe cover and sterile gel, hat, mask, sterile gown, large sterile drape, and preparation with 2% chlorhexidine utilized. Local anesthesia with 1% lidocaine. Under real-time ultrasound guidance, puncture basilic vein using 21-gauge needle, documented and archived, passage 0.018 guidewire under direct fluoroscopy, which was used to determine appropriate catheter length, exchange for 4 Ukrainian peel-away sheath. 4 Ukrainian Bard dual-lumen power PICC cut to 43 cm. It was inserted through the peel-away sheath. Peel-away sheath and guidewire removed. Catheter fixed to the skin. Both catheter ports aspirated and flushed. Patient tolerated procedure well, without immediate complication. Digital radiograph documents satisfactory catheter tip position, at the cavoatrial junction. Total fluoroscopy time 18 point seconds. Total dose area product [id number] [id number] Total number of images: 2 Impression: Successful placement of right arm PICC under sonographic and fluoroscopic guidance, as described above.
--- NOTE | 2019-12-29 19:18 | NUR ---
HAND-OFF: Report given to SOPHIA Lujan RN
--- NOTE | 2019-12-29 19:28 | Internal Med Progress Note ---
Subjective Date of Service: Dec 29, 2019 Physician Name Aníbal Cuellar Attending Physician Christopher Villanueva MD Current Medications Medications (Trade) Dose Ordered Sig/Liss Route PRN Reason Start Time Stop Time Status Last Admin Dose Admin Acetaminophen (Tylenol) 650 mg Q4H PRN ORAL Mild Pain (Pain Scale 1-3) 12/25/19 12:15 01/24/20 12:14 12/25/19 23:27 Albuterol/ Ipratropium (Albuterol/ Ipratropium) 3 ml Q6H PRN HHN Shortness of Breath 12/25/19 12:15 12/30/19 12:14 Allopurinol (allopurinoL) 300 mg DAILY ORAL 12/30/19 09:00 01/29/20 08:59 Aspirin (Ecotrin) 325 mg DAILY ORAL 12/26/19 09:00 01/25/20 08:59 12/29/19 08:38 Chlorhexidine Gluconate (Katey-Hex 2%) 1 applic DAILY@2000 TOPIC 12/29/19 20:00 01/28/20 19:59 Dextrose (Dextrose 50%) 25 ml Q30M PRN IV Hypoglycemia 12/25/19 12:15 01/24/20 12:14 Dextrose (Dextrose 50%) 50 ml Q30M PRN IV Hypoglycemia 12/25/19 12:15 01/24/20 12:14 Famotidine (Pepcid) 40 mg DAILY ORAL 12/26/19 09:00 01/25/20 08:59 12/29/19 08:38 Gabapentin (Neurontin) 300 mg QID ORAL 12/26/19 13:00 01/24/20 12:59 12/29/19 17:19 Heparin Sodium (Porcine) (Heparin 5000 units/ml) 5,000 units EVERY 12 HOURS SUBQ 12/25/19 21:00 01/24/20 20:59 12/29/19 08:40 Heparin Sodium/ Sodium Chloride (Heparin 1000 units/500ml Premix) 1,000 unit ONCE IV 12/29/19 12:00 12/29/19 23:59 Hydrocortisone (Hydrocortisone) 1 applic DAILY TOPIC 12/28/19 10:00 01/27/20 09:59 12/29/19 08:38 Iron Sucrose 100 mg/Sodium Chloride 60 ml @ 240 mls/hr BEDTIME IV 12/28/19 21:00 01/01/20 21:14 12/28/19 21:10 Lidocaine HCl (Xylocaine 1% 30ml) 30 ml ONCE INJ 12/29/19 12:00 12/29/19 23:59 Loperamide HCl (Imodium) 2 mg Q4H PRN ORAL Diarrhea 12/27/19 14:15 01/26/20 14:14 Magnesium Oxide (Mag-Ox 400mg) 400 mg BID ORAL 12/29/19 11:15 01/28/20 11:14 12/29/19 17:19 Metoprolol Succinate (Toprol XL) 12.5 mg Q12HR ORAL 12/29/19 21:00 01/25/20 08:59 Ondansetron HCl (Zofran) 4 mg Q6H PRN IVP Nausea & Vomiting 12/25/19 12:15 01/24/20 12:14 Allergies: Coded Allergies: DIAZEPAM (Verified Allergy, Unknown, 10/07/11) HYDROCODONE (Verified Allergy, Unknown, 07/07/10) MINOXIDIL (Verified Allergy, Unknown, 07/07/10) PENICILLINS (Unverified Allergy, Unknown, 12/25/19) NAME ALERT (Verified Adverse Reaction, Unknown, 07/13/08) ROS Limited/Unobtainable: Yes Subjective 84 YO F admitted with nausea, vomiting and diarrhea. Cover for Itn Saúl-DR Villanueva Objective Last Vital Signs Date Time Temp Pulse Resp B/P (MAP) Pulse Ox O2 Delivery O2 Flow Rate FiO2 12/29/19 15:39 97.8 77 18 139/71 (93) 96 12/29/19 08:40 Room Air Laboratory Tests Test 12/29/19 06:35 White Blood Count 3.4 K/UL (4.8-10.8) L Red Blood Count 3.48 M/UL (4.20-5.40) L Hemoglobin 10.2 G/DL (12.0-16.0) L Hematocrit 32.2 % (37.0-47.0) L Mean Corpuscular Volume 93 FL (80-99) Mean Corpuscular Hemoglobin 29.2 PG (27.0-31.0) Mean Corpuscular Hemoglobin Concent 31.5 G/DL (32.0-36.0) L Red Cell Distribution Width 14.3 % (11.6-14.8) Platelet Count 159 K/UL (150-450) Mean Platelet Volume 5.3 FL (6.5-10.1) L Neutrophils (%) (Auto) % (45.0-75.0) Lymphocytes (%) (Auto) % (20.0-45.0) Monocytes (%) (Auto) % (1.0-10.0) Eosinophils (%) (Auto) % (0.0-3.0) Basophils (%) (Auto) % (0.0-2.0) Differential Total Cells Counted 100 Neutrophils % (Manual) 50 % (45-75) Lymphocytes % (Manual) 33 % (20-45) Monocytes % (Manual) 15 % (1-10) H Eosinophils % (Manual) 2 % (0-3) Basophils % (Manual) 0 % (0-2) Band Neutrophils 0 % (0-8) Platelet Estimate Adequate Platelet Morphology Normal Anisocytosis 1+ Sodium Level 146 MMOL/L (136-145) H Potassium Level 4.5 MMOL/L (3.5-5.1) Chloride Level 113 MMOL/L (98-107) H Carbon Dioxide Level 21 MMOL/L (21-32) Anion Gap 12 mmol/L (5-15) Blood Urea Nitrogen 24 mg/dL (7-18) H Creatinine 1.1 MG/DL (0.55-1.30) Estimat Glomerular Filtration Rate 57.1 mL/min (>60) Glucose Level 91 MG/DL (74-106) Uric Acid 8.5 MG/DL (2.6-7.2) H Calcium Level 8.5 MG/DL (8.5-10.1) Phosphorus Level 3.1 MG/DL (2.5-4.9) Magnesium Level 1.5 MG/DL (1.8-2.4) L Ferritin 39 NG/ML (8-388) Total Bilirubin < 0.1 MG/DL (0.2-1.0) L Gamma Glutamyl Transpeptidase 15 U/L (5-85) Aspartate Amino Transf (AST/SGOT) 31 U/L (15-37) Alanine Aminotransferase (ALT/SGPT) < 6 U/L (12-78) L Alkaline Phosphatase 112 U/L (46-116) Total Creatine Kinase 60 U/L (26-308) C-Reactive Protein, Quantitative < 0.4 mg/dL (0.00-0.90) Pro-B-Type Natriuretic Peptide 1690 pg/mL (0-125) H Total Protein 6.7 G/DL (6.4-8.2) Albumin 2.2 G/DL (3.4-5.0) L Globulin 4.5 g/dL Albumin/Globulin Ratio 0.5 (1.0-2.7) L Vitamin B12 Level 231 PG/ML (193-986) Thyroid Stimulating Hormone (TSH) 2.448 uiU/mL (0.358-3.740) Microbiology Date/Time Source Procedure Growth Status 12/26/19 20:45 Urine,Clean Catch Urine Culture - Final Escherichia Coli Complete Intake and Output 12/28/19 12/29/19 19:00 07:00 Intake Total 720 ml 240 ml Balance 720 ml 240 ml Intake Oral 720 ml 240 ml # Voids 3 2 Objective PHYSICAL EXAMINATION: GENERAL: The patient is a well-developed and well-nourished female, in no apparent distress. HEENT: Pupils are equal and responsive to light and accommodation. Extraocular movements are intact. NECK: Supple without lymphadenopathy. CHEST: Lungs are clear to auscultation bilaterally without wheezes or rales. CARDIOVASCULAR: Regular rhythm and rate. S1, S2 are normal without murmurs, rubs, or gallops. ABDOMEN: Soft, diffusely tender with decreased bowel sounds. No evidence of hepatosplenomegaly. Currently, no rebound or guarding noted. EXTREMITIES: Negative for clubbing, cyanosis, or edema. RECTAL/GENITAL: Not performed. NEUROLOGIC: Cranial nerves II through XII are grossly intact without focal deficits. Assessment/Plan Assessment/Plan ASSESSMENT: This is a an 84-year-old female. 1. Nausea with vomiting. 2. Diarrhea. 3. Abdominal pain. 4. Diabetes type 2. 5. Congestive heart failure. 6. Hypertension. 7. Cerebrovascular disease. 8. Acute on chronic renal failure. 9. Asthma. 10. Anemia of chronic renal disease. 11. Gastroesophageal reflux disease. 12. Gout. 13. Cardiomyopathy. TREATMENT: 1. Nausea, vomiting, and diarrhea. Stool cultures are pending. The patient is tolerating a soft diet at this time. We will follow recommendations of Gastroenterology. Differential includes viral gastroenteritis versus bacterial infection secondary to food poison. 2. Diabetes type 2. A NovoLog sliding scale has been instituted. 3. Congestive heart failure. 4. Hypertension. Continue metoprolol as above. 5. Cerebrovascular disease. 6. Chronic renal failure. A Nephrology consultation has been obtained with Dr. Castillo. The patient is currently receiving intravenous fluids. We will follow recommendations of Nephrology. 7. Asthma. 8. Anemia of chronic disease. 9. Gastroesophageal reflux disease. Continue Protonix as above. 10. Gout. Continue allopurinol as above. 11. Cardiomyopathy. Aníbal Cuellar MD Dec 29, 2019 19:28
[2019-12-29 20:00] VITALS: BP 113/77
--- NOTE | 2019-12-29 20:01 | NUR ---
NURSE NOTES: Patient is in bed, awake and alert x4. No signs of distress or SOB. MAXIMILIANO PICC line noted and flushes well. No C/O pain at this time. Bed locked and in lowest position. Walker at bedside and easily accessible. Call light in reach. Will continue to monitor.
[2019-12-29] MEDS: Dyna-Hex 2% Top Sol 2oz TOPIC SCH (20:30)
[2019-12-29] MEDS: Iron Sucrose 100 MG in NS 55 ML IV SCH (21:06)
[2019-12-30] VITALS: BP 155/74
[2019-12-30 04:00] VITALS: BP 153/79
--- NOTE | 2019-12-30 07:37 | NUR ---
HAND-OFF: Report given to SOPHIA Nesbitt.
--- NOTE | 2019-12-30 07:42 | NUR ---
NURSE NOTES: Received report from SOPHIA Vogel. Patient A&Ox4. On room air, no signs of distress or labored breathing. PICC line dry and intact, saline locked. Bed in lowest position with call light in reach. Will continue with plan of care.
[2019-12-30 07:44] LABS: ALANINE AMINOTRANSFERASE 19 U/L (12-78); ALBUMIN 2.3 G/DL (3.4-5.0); ALBUMIN/GLOBULIN RATIO 0.5 (1.0-2.7); ALKALINE PHOSPHATASE 107 U/L (46-116); ANION GAP 7 mmol/L (5-15); ASPARTATE AMINO TRANSFERASE 28 U/L (15-37); BILIRUBIN,TOTAL 0.2 MG/DL (0.2-1.0); BLOOD UREA NITROGEN 23 mg/dL (7-18); CALCIUM 8.8 MG/DL (8.5-10.1); CARBON DIOXIDE 26 MMOL/L (21-32); CHLORIDE 111 MMOL/L (98-107); CREATININE 1.7 MG/DL (0.55-1.30); PHOSPHORUS 3.2 MG/DL (2.5-4.9); POTASSIUM 4.3 MMOL/L (3.5-5.1); SODIUM 144 MMOL/L (136-145)
[2019-12-30 08:00] VITALS: BP 103/83
[2019-12-30 08:20] LABS: BASOPHILS % (AUTO) 1.3 % (0.0-2.0); EOSINOPHILS % (AUTO) 2.9 % (0.0-3.0); HEMATOCRIT 29.6 % (37.0-47.0); HEMOGLOBIN 9.4 G/DL (12.0-16.0); LYMPHOCYTES % (AUTO) 33.1 % (20.0-45.0); MEAN CORPUSCULAR VOLUME 92 FL (80-99); MONOCYTES % (AUTO) 13.3 % (1.0-10.0); NEUTROPHILS % (AUTO) 49.3 % (45.0-75.0); PLATELET COUNT 149 K/UL (150-450); RED CELL DISTRIBUTION WIDTH 14.5 % (11.6-14.8); WHITE BLOOD COUNT 4.2 K/UL (4.8-10.8)
[2019-12-30] MEDS: Metoprolol Succinate XL 25mg tab ORAL SCH ×2 (09:00→21:36)
[2019-12-30] MEDS: Heparin 5000 units/ml inj SUBQ SCH ×2 (09:00→21:00)
[2019-12-30] MEDS: Aspirin EC 325mg tab ORAL SCH (09:58)
[2019-12-30] MEDS: Hydrocortisone 1% Cr 30gm TOPIC SCH (09:59)
[2019-12-30] MEDS: Magnesium Oxide 400mg tab ORAL SCH ×2 (09:59→17:15)
--- NOTE | 2019-12-30 10:59 | Pulmonology Progress Note ---
Assessment/Plan Assessment/Plan ASSESSMENT nausea, vomiting and diarrhea - likely gastroenteritis vs food poisoning - resolved ARF likely due to dehydration and diuretic use HTN Asthma Anemia of iron deficiency Protein calorie malnutrition Asymptomatic bacteriuria edema BLE CHF PLAN OF CARE MS floor s/p IVF, monitor renal parameters, lytes, correct lytes as needed renal US no hydro, normal kidney echogenicity creat initially improved to 1.1, this am 1.7 nephro on board a/emetic prn stool CX and stool C dif negative dietary recs implemented in POC BP management with current regimen ECHO with pEF 60% and evidence of moderate pulm HTN diuretic on hold given MORGAN O2 HHN prn CXR stable venous Duplex BLE due to LE edema -negative for acute DVT DVT prophylaxis monitor HH with goal to keep Hgb above 7 hx of DM, not on any anti-glycemic meds, check HgA1c 6.3, no concentrated sweets diet breast US was danilo due to c/o swelling L breast, unremarkable monitor HH with goal to keep Hgb above 7 anemia w/up c/w FADY on IV Venofer UCX + E coli, no urinary complaints, per ID asympt bacteriuria, keep off abx unless febrile, leukocytosis, or starts to have urinary complaints GI prophylaxis supportive care case discussed and evaluated by supervising physician Subjective Allergies: Coded Allergies: DIAZEPAM (Verified Allergy, Unknown, 10/07/11) HYDROCODONE (Verified Allergy, Unknown, 07/07/10) MINOXIDIL (Verified Allergy, Unknown, 07/07/10) PENICILLINS (Unverified Allergy, Unknown, 12/25/19) NAME ALERT (Verified Adverse Reaction, Unknown, 07/13/08) Subjective denies n/v/abd pain creat up to 1.7 this am Objective Last 24 Hour Vital Signs Date Time Temp Pulse Resp B/P (MAP) Pulse Ox O2 Delivery O2 Flow Rate FiO2 12/30/19 09:00 100 103/83 12/30/19 04:00 97.0 71 17 153/79 (103) 97 12/30/19 00:00 97.8 76 17 155/74 (101) 97 12/29/19 20:59 78 113/77 12/29/19 20:49 Room Air 12/29/19 20:00 97.7 78 17 113/77 (89) 97 12/29/19 15:39 97.8 77 18 139/71 (93) 96 12/29/19 11:32 97.4 73 18 128/65 (86) 92 Intake and Output 12/29/19 12/30/19 19:00 07:00 Intake Total 1040 ml 200 ml Balance 1040 ml 200 ml Intake Oral 1040 ml 200 ml # Voids 5 2 Objective General Appearance: awake, alert, AA female in NAD Lines, tubes and drains: peripheral HEENT: normocephalic, atraumatic, anicteric, mucous membranes moist, PERRL Neck: supple Respiratory/Chest: lungs clear, no respiratory distress, respiratory distress Cardiovascular/Chest: normal peripheral pulses, normal rate, no JVD; PICC line intact Abdomen: normal bowel sounds, non tender, soft Extremities: normal range of motion, normal capillary refill, pitting - +1 edema Neurologic: alert, responsive Musculoskeletal: normal muscle bulk Laboratory Tests 12/30/19 06:15: White Blood Count 4.2L, Red Blood Count 3.20L, Hemoglobin 9.4L, Hematocrit 29.6L , Mean Corpuscular Volume 92, Mean Corpuscular Hemoglobin 29.4, Mean Corpuscular Hemoglobin Concent 31.8L, Red Cell Distribution Width 14.5, Platelet Count 149L, Mean Platelet Volume 4.8L, Neutrophils (%) (Auto) 49.3, Lymphocytes (%) (Auto) 33.1, Monocytes (%) (Auto) 13.3H, Eosinophils (%) (Auto) 2.9, Basophils (%) (Auto) 1.3, Sodium Level 144, Potassium Level 4.3, Chloride Level 111H, Carbon Dioxide Level 26, Anion Gap 7, Blood Urea Nitrogen 23H, Creatinine 1.7#H, Estimat Glomerular Filtration Rate 34.5, Glucose Level 84, Hemoglobin A1c 5.5, Uric Acid 8.1H, Calcium Level 8.8, Phosphorus Level 3.2, Magnesium Level 1.6L, Total Bilirubin 0.2, Aspartate Amino Transf (AST/SGOT) 28 , Alanine Aminotransferase (ALT/SGPT) 19, Alkaline Phosphatase 107, Total Protein 6.7, Albumin 2.3L, Globulin 4.4, Albumin/Globulin Ratio 0.5L Current Medications Medications (Trade) Dose Ordered Sig/Liss Route PRN Reason Start Time Stop Time Status Last Admin Dose Admin Acetaminophen (Tylenol) 650 mg Q4H PRN ORAL Mild Pain (Pain Scale 1-3) 12/25/19 12:15 01/24/20 12:14 12/25/19 23:27 Albuterol/ Ipratropium (Albuterol/ Ipratropium) 3 ml Q6H PRN HHN Shortness of Breath 12/25/19 12:15 12/30/19 12:14 Allopurinol (allopurinoL) 300 mg DAILY ORAL 12/30/19 09:00 01/29/20 08:59 12/30/19 09:58 Aspirin (Ecotrin) 325 mg DAILY ORAL 12/26/19 09:00 01/25/20 08:59 12/30/19 09:58 Chlorhexidine Gluconate (Katey-Hex 2%) 1 applic DAILY@2000 TOPIC 12/29/19 20:00 01/28/20 19:59 12/29/19 20:30 Dextrose (Dextrose 50%) 25 ml Q30M PRN IV Hypoglycemia 12/25/19 12:15 01/24/20 12:14 Dextrose (Dextrose 50%) 50 ml Q30M PRN IV Hypoglycemia 12/25/19 12:15 01/24/20 12:14 Famotidine (Pepcid) 40 mg DAILY ORAL 12/26/19 09:00 01/25/20 08:59 12/30/19 09:58 Gabapentin (Neurontin) 300 mg QID ORAL 12/26/19 13:00 01/24/20 12:59 12/30/19 09:58 Heparin Sodium (Porcine) (Heparin 5000 units/ml) 5,000 units EVERY 12 HOURS SUBQ 12/25/19 21:00 01/24/20 20:59 12/29/19 21:26 Hydrocortisone (Hydrocortisone) 1 applic DAILY TOPIC 12/28/19 10:00 01/27/20 09:59 12/30/19 09:59 Iron Sucrose 100 mg/Sodium Chloride 60 ml @ 240 mls/hr BEDTIME IV 12/28/19 21:00 01/01/20 21:14 12/29/19 21:06 Loperamide HCl (Imodium) 2 mg Q4H PRN ORAL Diarrhea 12/27/19 14:15 01/26/20 14:14 Magnesium Oxide (Mag-Ox 400mg) 400 mg BID ORAL 12/29/19 11:15 01/28/20 11:14 12/30/19 09:59 Metoprolol Succinate (Toprol XL) 12.5 mg Q12HR ORAL 12/29/19 21:00 01/25/20 08:59 Ondansetron HCl (Zofran) 4 mg Q6H PRN IVP Nausea & Vomiting 12/25/19 12:15 01/24/20 12:14 Princess Chavez [employer] Dec 30, 2019 10:59
--- NOTE | 2019-12-30 11:31 | Infectious Diseases Prog Note ---
Assessment/Plan Assessment/Plan Assessment: Viral gastroenteritis vs food intoxication; resolved -12/25 CT abd/p: Limited assessment of the GI tract, due to lack of enteric contrast administration. No definite acute abnormality. Status post cholecystectomy. Mild dilatation of the extrahepatic bile ducts, probably related to age and postcholecystectomy state as no downstream obstructive lesion is demonstrated. Basilar pulmonary interstitial septal thickening, scarring, atelectasis and bronchiectasis. Probably on the basis of chronic interstitial disease. -12/25 Cdiff neg stool cx +4 usual enteric shweta Asymptomatic bacteriuria -12/26 u/a wbc 10-15, nit neg, leuk +3; many sq cells ; ucx >100k E.coli (R cipro/levo; otherwise S); colonizer -12/25 u/a wbc 5-20, nit neg, leuk +3 Afebrile Mild leukopenia -12/25 CXR: Suspect small left pleural effusion. No definite acute process otherwise MORGAN on CKD; SP -Renal US: Bilateral small kidneys, also previously reported. Negative for hydronephrosis HTN DM2 CVAx3 Obesity s/p cholecystectomy Gout cardiomyopathy CHF anemia GERD Asthma Assisted living resident Plan: -Continue to monitor off abx -f/u cx -Monitor CBC/CMP, temperatures -aspiration precautions -GI f/u -supportive treatment Thank you for this consultation. Will continue to follow along with you. Discussed with RN. Subjective Allergies: Coded Allergies: DIAZEPAM (Verified Allergy, Unknown, 10/07/11) HYDROCODONE (Verified Allergy, Unknown, 07/07/10) MINOXIDIL (Verified Allergy, Unknown, 07/07/10) PENICILLINS (Unverified Allergy, Unknown, 12/25/19) NAME ALERT (Verified Adverse Reaction, Unknown, 07/13/08) Subjective Afebrile On RA Objective Vital Signs Last 24 Hour Vital Signs Date Time Temp Pulse Resp B/P (MAP) Pulse Ox O2 Delivery O2 Flow Rate FiO2 12/30/19 09:00 100 103/83 12/30/19 04:00 97.0 71 17 153/79 (103) 97 12/30/19 00:00 97.8 76 17 155/74 (101) 97 12/29/19 20:59 78 113/77 12/29/19 20:49 Room Air 12/29/19 20:00 97.7 78 17 113/77 (89) 97 12/29/19 15:39 97.8 77 18 139/71 (93) 96 12/29/19 11:32 97.4 73 18 128/65 (86) 92 Height (Feet): 5 Height (Inches): 4.00 Weight (Pounds): 184 Objective GENERAL: no apparent distress. HEENT: Pupils are equal and responsive to light and accommodation. Extraocular movements are intact. CHEST: Lungs are clear to auscultation bilaterally without wheezes or rales. CARDIOVASCULAR: Regular rhythm and rate. S1, S2 ABDOMEN: Soft, non tender Laboratory Tests Test 12/30/19 06:15 White Blood Count 4.2 K/UL (4.8-10.8) L Red Blood Count 3.20 M/UL (4.20-5.40) L Hemoglobin 9.4 G/DL (12.0-16.0) L Hematocrit 29.6 % (37.0-47.0) L Mean Corpuscular Volume 92 FL (80-99) Mean Corpuscular Hemoglobin 29.4 PG (27.0-31.0) Mean Corpuscular Hemoglobin Concent 31.8 G/DL (32.0-36.0) L Red Cell Distribution Width 14.5 % (11.6-14.8) Platelet Count 149 K/UL (150-450) L Mean Platelet Volume 4.8 FL (6.5-10.1) L Neutrophils (%) (Auto) 49.3 % (45.0-75.0) Lymphocytes (%) (Auto) 33.1 % (20.0-45.0) Monocytes (%) (Auto) 13.3 % (1.0-10.0) H Eosinophils (%) (Auto) 2.9 % (0.0-3.0) Basophils (%) (Auto) 1.3 % (0.0-2.0) Sodium Level 144 MMOL/L (136-145) Potassium Level 4.3 MMOL/L (3.5-5.1) Chloride Level 111 MMOL/L (98-107) H Carbon Dioxide Level 26 MMOL/L (21-32) Anion Gap 7 mmol/L (5-15) Blood Urea Nitrogen 23 mg/dL (7-18) H Creatinine 1.7 MG/DL (0.55-1.30) #H Estimat Glomerular Filtration Rate 34.5 mL/min (>60) Glucose Level 84 MG/DL (74-106) Hemoglobin A1c 5.5 % (4.3-6.0) Uric Acid 8.1 MG/DL (2.6-7.2) H Calcium Level 8.8 MG/DL (8.5-10.1) Phosphorus Level 3.2 MG/DL (2.5-4.9) Magnesium Level 1.6 MG/DL (1.8-2.4) L Total Bilirubin 0.2 MG/DL (0.2-1.0) Aspartate Amino Transf (AST/SGOT) 28 U/L (15-37) Alanine Aminotransferase (ALT/SGPT) 19 U/L (12-78) Alkaline Phosphatase 107 U/L (46-116) Total Protein 6.7 G/DL (6.4-8.2) Albumin 2.3 G/DL (3.4-5.0) L Globulin 4.4 g/dL Albumin/Globulin Ratio 0.5 (1.0-2.7) L Current Medications Medications (Trade) Dose Ordered Sig/Liss Route PRN Reason Start Time Stop Time Status Last Admin Dose Admin Acetaminophen (Tylenol) 650 mg Q4H PRN ORAL Mild Pain (Pain Scale 1-3) 12/25/19 12:15 01/24/20 12:14 12/25/19 23:27 Albuterol/ Ipratropium (Albuterol/ Ipratropium) 3 ml Q6H PRN HHN Shortness of Breath 12/25/19 12:15 12/30/19 12:14 Allopurinol (allopurinoL) 300 mg DAILY ORAL 12/30/19 09:00 01/29/20 08:59 12/30/19 09:58 Aspirin (Ecotrin) 325 mg DAILY ORAL 12/26/19 09:00 01/25/20 08:59 12/30/19 09:58 Chlorhexidine Gluconate (Katey-Hex 2%) 1 applic DAILY@1999 TOPIC 12/29/19 20:00 01/28/20 19:59 12/29/19 20:30 Dextrose (Dextrose 50%) 25 ml Q30M PRN IV Hypoglycemia 12/25/19 12:15 01/24/20 12:14 Dextrose (Dextrose 50%) 50 ml Q30M PRN IV Hypoglycemia 12/25/19 12:15 01/24/20 12:14 Famotidine (Pepcid) 40 mg DAILY ORAL 12/26/19 09:00 01/25/20 08:59 12/30/19 09:58 Gabapentin (Neurontin) 300 mg QID ORAL 12/26/19 13:00 01/24/20 12:59 12/30/19 09:58 Heparin Sodium (Porcine) (Heparin 5000 units/ml) 5,000 units EVERY 12 HOURS SUBQ 12/25/19 21:00 01/24/20 20:59 12/29/19 21:26 Hydrocortisone (Hydrocortisone) 1 applic DAILY TOPIC 12/28/19 10:00 01/27/20 09:59 12/30/19 09:59 Iron Sucrose 100 mg/Sodium Chloride 60 ml @ 240 mls/hr BEDTIME IV 12/28/19 21:00 01/01/20 21:14 12/29/19 21:06 Loperamide HCl (Imodium) 2 mg Q4H PRN ORAL Diarrhea 12/27/19 14:15 01/26/20 14:14 Magnesium Oxide (Mag-Ox 400mg) 400 mg BID ORAL 12/29/19 11:15 01/28/20 11:14 12/30/19 09:59 Metoprolol Succinate (Toprol XL) 12.5 mg Q12HR ORAL 12/29/19 21:00 01/25/20 08:59 Ondansetron HCl (Zofran) 4 mg Q6H PRN IVP Nausea & Vomiting 12/25/19 12:15 01/24/20 12:14 Vincent Obrien MD Dec 30, 2019 11:31
--- NOTE | 2019-12-30 11:54 | Consultation ---
Consult Note Assessment/Plan renal consult dictated # [id number] Amor Flores MD Dec 30, 2019 11:54
[2019-12-30 12:00] VITALS: BP 125/75
--- NOTE | 2019-12-30 15:10 | Internal Med Progress Note ---
Subjective Date of Service: Dec 30, 2019 Physician Name Cuellar,Aníbal Attending Physician Christopher Villanueva MD Current Medications Medications (Trade) Dose Ordered Sig/Liss Route PRN Reason Start Time Stop Time Status Last Admin Dose Admin Acetaminophen (Tylenol) 650 mg Q4H PRN ORAL Mild Pain (Pain Scale 1-3) 12/25/19 12:15 01/24/20 12:14 12/25/19 23:27 Allopurinol (allopurinoL) 300 mg DAILY ORAL 12/30/19 09:00 01/29/20 08:59 12/30/19 09:58 Aspirin (Ecotrin) 325 mg DAILY ORAL 12/26/19 09:00 01/25/20 08:59 12/30/19 09:58 Chlorhexidine Gluconate (Katey-Hex 2%) 1 applic DAILY@1999 TOPIC 12/29/19 20:00 01/28/20 19:59 12/29/19 20:30 Dextrose (Dextrose 50%) 25 ml Q30M PRN IV Hypoglycemia 12/25/19 12:15 01/24/20 12:14 Dextrose (Dextrose 50%) 50 ml Q30M PRN IV Hypoglycemia 12/25/19 12:15 01/24/20 12:14 Famotidine (Pepcid) 40 mg DAILY ORAL 12/26/19 09:00 01/25/20 08:59 12/30/19 09:58 Gabapentin (Neurontin) 300 mg QID ORAL 12/26/19 13:00 01/24/20 12:59 12/30/19 13:23 Heparin Sodium (Porcine) (Heparin 5000 units/ml) 5,000 units EVERY 12 HOURS SUBQ 12/25/19 21:00 01/24/20 20:59 12/29/19 21:26 Hydrocortisone (Hydrocortisone) 1 applic DAILY TOPIC 12/28/19 10:00 01/27/20 09:59 12/30/19 09:59 Iron Sucrose 100 mg/Sodium Chloride 60 ml @ 240 mls/hr BEDTIME IV 12/28/19 21:00 01/01/20 21:14 12/29/19 21:06 Loperamide HCl (Imodium) 2 mg Q4H PRN ORAL Diarrhea 12/27/19 14:15 01/26/20 14:14 Magnesium Oxide (Mag-Ox 400mg) 400 mg BID ORAL 12/29/19 11:15 01/28/20 11:14 12/30/19 09:59 Metoprolol Succinate (Toprol XL) 12.5 mg Q12HR ORAL 12/29/19 21:00 01/25/20 08:59 Ondansetron HCl (Zofran) 4 mg Q6H PRN IVP Nausea & Vomiting 12/25/19 12:15 01/24/20 12:14 Allergies: Coded Allergies: DIAZEPAM (Verified Allergy, Unknown, 10/07/11) HYDROCODONE (Verified Allergy, Unknown, 07/07/10) MINOXIDIL (Verified Allergy, Unknown, 07/07/10) PENICILLINS (Unverified Allergy, Unknown, 12/25/19) NAME ALERT (Verified Adverse Reaction, Unknown, 07/13/08) ROS Limited/Unobtainable: Yes Subjective 84 YO F admitted with nausea, vomiting and diarrhea. Cover for Itn Med-DR Villanueva Objective Last Vital Signs Date Time Temp Pulse Resp B/P (MAP) Pulse Ox O2 Delivery O2 Flow Rate FiO2 12/30/19 09:00 100 103/83 12/30/19 09:00 Room Air 12/30/19 08:00 97.5 18 98 Laboratory Tests Test 12/30/19 06:15 White Blood Count 4.2 K/UL (4.8-10.8) L Red Blood Count 3.20 M/UL (4.20-5.40) L Hemoglobin 9.4 G/DL (12.0-16.0) L Hematocrit 29.6 % (37.0-47.0) L Mean Corpuscular Volume 92 FL (80-99) Mean Corpuscular Hemoglobin 29.4 PG (27.0-31.0) Mean Corpuscular Hemoglobin Concent 31.8 G/DL (32.0-36.0) L Red Cell Distribution Width 14.5 % (11.6-14.8) Platelet Count 149 K/UL (150-450) L Mean Platelet Volume 4.8 FL (6.5-10.1) L Neutrophils (%) (Auto) 49.3 % (45.0-75.0) Lymphocytes (%) (Auto) 33.1 % (20.0-45.0) Monocytes (%) (Auto) 13.3 % (1.0-10.0) H Eosinophils (%) (Auto) 2.9 % (0.0-3.0) Basophils (%) (Auto) 1.3 % (0.0-2.0) Sodium Level 144 MMOL/L (136-145) Potassium Level 4.3 MMOL/L (3.5-5.1) Chloride Level 111 MMOL/L (98-107) H Carbon Dioxide Level 26 MMOL/L (21-32) Anion Gap 7 mmol/L (5-15) Blood Urea Nitrogen 23 mg/dL (7-18) H Creatinine 1.7 MG/DL (0.55-1.30) #H Estimat Glomerular Filtration Rate 34.5 mL/min (>60) Glucose Level 84 MG/DL (74-106) Hemoglobin A1c 5.5 % (4.3-6.0) Uric Acid 8.1 MG/DL (2.6-7.2) H Calcium Level 8.8 MG/DL (8.5-10.1) Phosphorus Level 3.2 MG/DL (2.5-4.9) Magnesium Level 1.6 MG/DL (1.8-2.4) L Total Bilirubin 0.2 MG/DL (0.2-1.0) Aspartate Amino Transf (AST/SGOT) 28 U/L (15-37) Alanine Aminotransferase (ALT/SGPT) 19 U/L (12-78) Alkaline Phosphatase 107 U/L (46-116) Total Protein 6.7 G/DL (6.4-8.2) Albumin 2.3 G/DL (3.4-5.0) L Globulin 4.4 g/dL Albumin/Globulin Ratio 0.5 (1.0-2.7) L Intake and Output 12/29/19 12/30/19 19:00 07:00 Intake Total 1040 ml 200 ml Balance 1040 ml 200 ml Intake Oral 1040 ml 200 ml # Voids 5 2 Objective PHYSICAL EXAMINATION: GENERAL: The patient is a well-developed and well-nourished female, in no apparent distress. HEENT: Pupils are equal and responsive to light and accommodation. Extraocular movements are intact. NECK: Supple without lymphadenopathy. CHEST: Lungs are clear to auscultation bilaterally without wheezes or rales. CARDIOVASCULAR: Regular rhythm and rate. S1, S2 are normal without murmurs, rubs, or gallops. ABDOMEN: Soft, diffusely tender with decreased bowel sounds. No evidence of hepatosplenomegaly. Currently, no rebound or guarding noted. EXTREMITIES: Negative for clubbing, cyanosis, or edema. RECTAL/GENITAL: Not performed. NEUROLOGIC: Cranial nerves II through XII are grossly intact without focal deficits. Assessment/Plan Assessment/Plan ASSESSMENT: This is a an 84-year-old female. 1. Gastroenteritis 2. Nausea with vomiting. Diarrhea. 3. Abdominal pain. 4. Diabetes type 2. 5. Congestive heart failure. 6. Hypertension. 7. Cerebrovascular disease. 8. Acute on chronic renal failure. 9. Asthma. 10. Anemia of chronic renal disease. 11. Gastroesophageal reflux disease. 12. Gout. 13. Cardiomyopathy. TREATMENT: 1. Nausea, vomiting, and diarrhea. Stool cultures are pending. The patient is tolerating a soft diet at this time. We will follow recommendations of Gastroenterology. Differential includes viral gastroenteritis versus bacterial infection secondary to food poison. 2. Diabetes type 2. A NovoLog sliding scale has been instituted. 3. Congestive heart failure. 4. Hypertension. Continue metoprolol as above. 5. Cerebrovascular disease. 6. Chronic renal failure. A Nephrology consultation has been obtained with Dr. Castillo. The patient is currently receiving intravenous fluids. We will follow recommendations of Nephrology. 7. Asthma. 8. Anemia of chronic disease. 9. Gastroesophageal reflux disease. Continue Protonix as above. 10. Gout. Continue allopurinol as above. 11. Cardiomyopathy. Aníbal Cuellar MD Dec 30, 2019 15:10
[2019-12-30 16:00] VITALS: BP 135/75
--- NOTE | 2019-12-30 19:47 | NUR ---
HAND-OFF: Report given to SOPHIA Varma.
[2019-12-30 20:00] VITALS: BP 126/58
--- NOTE | 2019-12-30 20:00 | Consultation ---
DATE OF CONSULTATION: 12/30/2019 NEPHROLOGY CONSULTATION CONSULTING PHYSICIAN: Amor Flores M.D. REFERRING PHYSICIAN: Christopher Villanueva M.D. REASON FOR CONSULTATION: History of chronic kidney disease. HISTORY OF PRESENT ILLNESS: This is an 84-year-old female who has been followed by me for many years in my office as well as hospital. Unfortunately I was not called to see her even though she mentioned that I am her noc technician. The patient was admitted on 12/25/2019 with nausea, vomiting, and diarrhea. The patient says that she mentioned even to [facility] and after waiting a long time there they did not see her so she came finally to [place] and was admitted. Her chemistry panel shows a BUN of 23 and creatinine 1.7 as of today. On the day of admission on 12/25/2019 , BUN was 30 and creatinine 2.4 some acute on chronic renal failure. The patient has had significant lower extremity edema and has been on diuretics for a long period of time. PAST MEDICAL HISTORY: The patient has also history of CHF, gastroesophageal reflux disease, diabetes mellitus, anemia, hypertension, history of CVA, obesity, gout. MEDICATIONS: Reviewed in [employer] link. SOCIAL HISTORY: No history of smoking or alcohol abuse. The patient lives at home. ALLERGIES: Reported to diazepam, hydrocodone, penicillin, minoxidil. REVIEW OF SYSTEMS: As above. PHYSICAL EXAMINATION: GENERAL: The patient is an elderly female, in no acute distress. VITAL SIGNS: Blood pressure is 103/83, pulse 100, temperature 97.5, respiratory rate is 18. HEENT: Pale conjunctivae. Anicteric sclerae. NECK: Supple. LUNGS: Clear to auscultation. HEART: S1 and S2 without murmurs or rubs. ABDOMEN: Soft and nontender. EXTREMITIES: Bilateral pedal edema. LABORATORY FINDINGS: CBC shows a WBC of 4200, hematocrit 29.6, hemoglobin 9.4, and platelet 149,000. Chemistry panel shows a serum sodium 144, potassium 4.3, chloride 111, BUN 23, creatinine 1.7, and magnesium 1.6. UA as of 12/26/2019 shows 10 to 15 wbc's per high-power field with many bacteria. Urine culture shows E coli. ASSESSMENT: This is an 84-year-old female with a history of chronic kidney disease as a result of diabetes mellitus, hypertension, atherosclerosis. She has some acute renal failure likely as result of vomiting and diarrhea and prerenal azotemia. She also has urinary tract infection with E coli. Acute renal failure has improved. Serum creatinine likely at baseline at this point. PLAN: I would hold off on diuretics for now. BMP will be followed closely. We will repeat UA and C and S. Further recommendations will be given based on those results. Thank you very much for this consultation. Amor Flores M.D. DR: Koby JOB#: [id number] CC:
--- NOTE | 2019-12-30 20:15 | NUR ---
NURSE NOTES: Pt is in bed, awake and alert. No acute distress noted. No nausea or vomiting now. Urine sample sent to lab by previous shift. PICC line will be flushed. Fall precaution in place. Pt asked to call before getting of bed. Bed locked low in position,side rails up and call light within reach. Bed alarm on. Pt will be monitored.
[2019-12-30] MEDS: Iron Sucrose 100 MG in NS 55 ML IV SCH (21:35)
[2019-12-30] MEDS: Dyna-Hex 2% Top Sol 2oz TOPIC SCH (21:36)
[2019-12-31 04:00] VITALS: BP 122/62
--- NOTE | 2019-12-31 05:30 | NUR ---
NURSE NOTES: Pt ambulates with steady gait to the bathroom. Urine collected for lab.
[2019-12-31 07:01] LABS: ANION GAP 6 mmol/L (5-15); BLOOD UREA NITROGEN 21 mg/dL (7-18); CALCIUM 9.1 MG/DL (8.5-10.1); CARBON DIOXIDE 26 MMOL/L (21-32); CHLORIDE 111 MMOL/L (98-107); CREATININE 1.7 MG/DL (0.55-1.30); POTASSIUM 4.5 MMOL/L (3.5-5.1); SODIUM 143 MMOL/L (136-145)
[2019-12-31 07:18] LABS: BASOPHILS % (AUTO) 0.8 % (0.0-2.0); EOSINOPHILS % (AUTO) 3.5 % (0.0-3.0); HEMATOCRIT 29.8 % (37.0-47.0); HEMOGLOBIN 9.7 G/DL (12.0-16.0); LYMPHOCYTES % (AUTO) 20.9 % (20.0-45.0); MEAN CORPUSCULAR VOLUME 91 FL (80-99); NEUTROPHILS % (AUTO) 63.9 % (45.0-75.0); PLATELET COUNT 162 K/UL (150-450); RED BLOOD COUNT 3.28 M/UL (4.20-5.40); RED CELL DISTRIBUTION WIDTH 14.3 % (11.6-14.8); WHITE BLOOD COUNT 4.5 K/UL (4.8-10.8)
[2019-12-31 07:23] LABS: APPEARANCE,URINE CLEAR; BILIRUBIN, URINE NEGATIVE (NEGATIVE); COLOR,URINE PALE YELLOW; GLUCOSE, URINE (UA) NEGATIVE (NEGATIVE); KETONES,URINE NEGATIVE (NEGATIVE); LEUKOCYTE ESTERASE ,URINE 1+ (NEGATIVE); NITRITE,URINE NEGATIVE (NEGATIVE); PH,URINE 7 (4.5-8.0); PROTEIN,URINE 1+ (NEGATIVE); UROBILINOGEN,URINE NORMAL MG/DL (0.0-1.0)
--- NOTE | 2019-12-31 07:25 | NUR ---
HAND-OFF: Report given to SOPHIA Nesbitt.Endorsed to oncoming nurse that patient is high fall risk. Fall precaution is in place. Addendum: 12/31/19 at 0739 by BATSHEVA ESTEVEZ RN RN Disregard above note; wrong time stamp.
--- NOTE | 2019-12-31 07:25 | NUR ---
HAND-OFF: Report given to SOPHIA Nesbitt.Endorsed to oncoming nurse that patient is high fall risk. Fall precaution is in place.
--- NOTE | 2019-12-31 07:26 | NUR ---
NURSE NOTES: Received report from SOPHIA Varma. Patient in bed, eating breakfast. A&Ox4. On room air, no signs of distress or labored breathing. PICC line dry, intact, and saline locked. Bed in lowest position with call light in reach. Reinforced to patient to use call light for any needs. Will continue with plan of care.
[2019-12-31 08:00] VITALS: BP 140/66
[2019-12-31] MEDS: Hydrocortisone 1% Cr 30gm TOPIC SCH (10:01)
[2019-12-31] MEDS: Magnesium Oxide 400mg tab ORAL SCH ×2 (10:03→18:26)
[2019-12-31] MEDS: Aspirin EC 325mg tab ORAL SCH (10:03)
[2019-12-31] MEDS: Heparin 5000 units/ml inj SUBQ SCH ×2 (10:03→20:52)
[2019-12-31] MEDS: Metoprolol Succinate XL 25mg tab ORAL SCH ×2 (10:05→20:43)
--- NOTE | 2019-12-31 10:20 | Pulmonology Progress Note ---
Assessment/Plan Assessment/Plan ASSESSMENT nausea, vomiting and diarrhea - likely gastroenteritis vs food poisoning - resolved ARF likely due to dehydration and diuretic use HTN Asthma Anemia of iron deficiency Protein calorie malnutrition Asymptomatic bacteriuria edema BLE CHF PLAN OF CARE MS floor s/p IVF, monitor renal parameters, lytes, correct lytes as needed renal US no hydro, normal kidney echogenicity creat initially improved to 1.1, this am still 1.7 nephro on board continue off diuretic a/emetic prn stool CX and stool C dif negative dietary recs implemented in POC BP management with current regimen ECHO with pEF 60% and evidence of moderate pulm HTN diuretic on hold given MORGAN O2 HHN prn CXR stable venous Duplex BLE due to LE edema -negative for acute DVT DVT prophylaxis monitor HH with goal to keep Hgb above 7 hx of DM, not on any anti-glycemic meds, check HgA1c 6.3, no concentrated sweets diet breast US was danilo due to c/o swelling L breast, unremarkable monitor HH with goal to keep Hgb above 7 anemia w/up c/w FADY on IV Venofer UCX + E coli, no urinary complaints, per ID asympt bacteriuria, keep off abx unless febrile, leukocytosis, or starts to have urinary complaints repeated UCX + GNB, pt continued to decline urinary symptoms, ? abx per ID discretion GI prophylaxis supportive care case discussed and evaluated by supervising physician Subjective Allergies: Coded Allergies: DIAZEPAM (Verified Allergy, Unknown, 10/07/11) HYDROCODONE (Verified Allergy, Unknown, 07/07/10) MINOXIDIL (Verified Allergy, Unknown, 07/07/10) PENICILLINS (Unverified Allergy, Unknown, 12/25/19) NAME ALERT (Verified Adverse Reaction, Unknown, 07/13/08) Subjective denies n/v/abd pain creat remains 1.7 this am Objective Last 24 Hour Vital Signs Date Time Temp Pulse Resp B/P (MAP) Pulse Ox O2 Delivery O2 Flow Rate FiO2 12/31/19 10:05 78 140/66 12/31/19 04:00 97.7 75 18 122/62 (82) 97 12/30/19 21:36 79 126/58 12/30/19 21:00 Room Air 12/30/19 20:00 97.1 79 18 126/58 (80) 97 12/30/19 16:00 97.7 82 18 135/75 (95) 97 12/30/19 12:00 97.6 86 18 125/75 (92) 100 Intake and Output 12/30/19 12/31/19 19:00 07:00 Intake Total 1080 ml 740 ml Balance 1080 ml 740 ml Intake Oral 1080 ml 680 ml IV Total 60 ml # Voids 4 4 # Bowel Movements 1 Objective General Appearance: awake, alert, AA female in NAD Lines, tubes and drains: peripheral HEENT: normocephalic, atraumatic, anicteric, mucous membranes moist, PERRL Neck: supple Respiratory/Chest: lungs clear, no respiratory distress, respiratory distress Cardiovascular/Chest: normal peripheral pulses, normal rate, no JVD; PICC line intact Abdomen: normal bowel sounds, non tender, soft Extremities: normal range of motion, normal capillary refill, pitting - +1 edema Neurologic: alert, responsive Musculoskeletal: normal muscle bulk Microbiology Date/Time Source Procedure Growth Status 12/30/19 15:58 Urine,Clean Catch Urine Culture - Preliminary Gram Negative Bacillus 1 Resulted Laboratory Tests 12/31/19 05:40: White Blood Count 4.5L, Red Blood Count 3.28L, Hemoglobin 9.7L, Hematocrit 29.8L , Mean Corpuscular Volume 91, Mean Corpuscular Hemoglobin 29.6, Mean Corpuscular Hemoglobin Concent 32.5, Red Cell Distribution Width 14.3, Platelet Count 162, Mean Platelet Volume 5.2L, Neutrophils (%) (Auto) 63.9, Lymphocytes ( %) (Auto) 20.9, Monocytes (%) (Auto) 11.0H, Eosinophils (%) (Auto) 3.5H, Basophils (%) (Auto) 0.8, Sodium Level 143, Potassium Level 4.5, Chloride Level 111H, Carbon Dioxide Level 26, Anion Gap 6, Blood Urea Nitrogen 21H, Creatinine 1.7H, Estimat Glomerular Filtration Rate 34.5, Glucose Level 87, Calcium Level 9.1, Magnesium Level 1.7L 12/31/19 06:10: Urine Color Pale yellow, Urine Appearance Clear, Urine pH 7, Urine Specific [place] 1.005, Urine Protein 1+H, Urine Glucose (UA) Negative, Urine Ketones Negative, Urine Blood Negative, Urine Nitrite Negative, Urine Bilirubin Negative , Urine Urobilinogen Normal, Urine Leukocyte Esterase 1+H, Urine RBC 0, Urine WBC 0-2, Urine Squamous Epithelial Cells Few, Urine Bacteria Occasional Current Medications Medications (Trade) Dose Ordered Sig/Liss Route PRN Reason Start Time Stop Time Status Last Admin Dose Admin Acetaminophen (Tylenol) 650 mg Q4H PRN ORAL Mild Pain (Pain Scale 1-3) 12/25/19 12:15 01/24/20 12:14 12/25/19 23:27 Allopurinol (allopurinoL) 300 mg DAILY ORAL 12/30/19 09:00 01/29/20 08:59 12/31/19 10:03 Aspirin (Ecotrin) 325 mg DAILY ORAL 12/26/19 09:00 01/25/20 08:59 12/31/19 10:03 Chlorhexidine Gluconate (Katey-Hex 2%) 1 applic DAILY@1999 TOPIC 12/29/19 20:00 01/28/20 19:59 12/30/19 21:36 Dextrose (Dextrose 50%) 25 ml Q30M PRN IV Hypoglycemia 12/25/19 12:15 01/24/20 12:14 Dextrose (Dextrose 50%) 50 ml Q30M PRN IV Hypoglycemia 12/25/19 12:15 01/24/20 12:14 Famotidine (Pepcid) 40 mg DAILY ORAL 12/26/19 09:00 01/25/20 08:59 12/31/19 10:03 Gabapentin (Neurontin) 300 mg QID ORAL 12/26/19 13:00 01/24/20 12:59 12/31/19 10:03 Heparin Sodium (Porcine) (Heparin 5000 units/ml) 5,000 units EVERY 12 HOURS SUBQ 12/25/19 21:00 01/24/20 20:59 12/31/19 10:03 Hydrocortisone (Hydrocortisone) 1 applic DAILY TOPIC 12/28/19 10:00 01/27/20 09:59 12/31/19 10:01 Iron Sucrose 100 mg/Sodium Chloride 60 ml @ 240 mls/hr BEDTIME IV 12/28/19 21:00 01/01/20 21:14 12/30/19 21:35 Loperamide HCl (Imodium) 2 mg Q4H PRN ORAL Diarrhea 12/27/19 14:15 01/26/20 14:14 Magnesium Oxide (Mag-Ox 400mg) 400 mg BID ORAL 12/29/19 11:15 01/28/20 11:14 12/31/19 10:03 Metoprolol Succinate (Toprol XL) 12.5 mg Q12HR ORAL 12/29/19 21:00 01/25/20 08:59 12/31/19 10:05 Ondansetron HCl (Zofran) 4 mg Q6H PRN IVP Nausea & Vomiting 12/25/19 12:15 01/24/20 12:14 Princess Chavez CURBER Dec 31, 2019 10:20
[2019-12-31 12:00] VITALS: BP 141/70
--- NOTE | 2019-12-31 15:07 | Internal Med Progress Note ---
Subjective Date of Service: Dec 31, 2019 Physician Name AlisaAníbal Attending Physician Christopher Villanueva MD Current Medications Medications (Trade) Dose Ordered Sig/Liss Route PRN Reason Start Time Stop Time Status Last Admin Dose Admin Acetaminophen (Tylenol) 650 mg Q4H PRN ORAL Mild Pain (Pain Scale 1-3) 12/25/19 12:15 01/24/20 12:14 12/25/19 23:27 Allopurinol (allopurinoL) 300 mg DAILY ORAL 12/30/19 09:00 01/29/20 08:59 12/31/19 10:03 Aspirin (Ecotrin) 325 mg DAILY ORAL 12/26/19 09:00 01/25/20 08:59 12/31/19 10:03 Chlorhexidine Gluconate (Katey-Hex 2%) 1 applic DAILY@2000 TOPIC 12/29/19 20:00 01/28/20 19:59 12/30/19 21:36 Dextrose (Dextrose 50%) 25 ml Q30M PRN IV Hypoglycemia 12/25/19 12:15 01/24/20 12:14 Dextrose (Dextrose 50%) 50 ml Q30M PRN IV Hypoglycemia 12/25/19 12:15 01/24/20 12:14 Famotidine (Pepcid) 40 mg DAILY ORAL 12/26/19 09:00 01/25/20 08:59 12/31/19 10:03 Gabapentin (Neurontin) 300 mg QID ORAL 12/26/19 13:00 01/24/20 12:59 12/31/19 13:54 Heparin Sodium (Porcine) (Heparin 5000 units/ml) 5,000 units EVERY 12 HOURS SUBQ 12/25/19 21:00 01/24/20 20:59 12/31/19 10:03 Hydrocortisone (Hydrocortisone) 1 applic DAILY TOPIC 12/28/19 10:00 01/27/20 09:59 12/31/19 10:01 Iron Sucrose 100 mg/Sodium Chloride 60 ml @ 240 mls/hr BEDTIME IV 12/28/19 21:00 01/01/20 21:14 12/30/19 21:35 Loperamide HCl (Imodium) 2 mg Q4H PRN ORAL Diarrhea 12/27/19 14:15 01/26/20 14:14 Magnesium Oxide (Mag-Ox 400mg) 400 mg BID ORAL 12/29/19 11:15 01/28/20 11:14 12/31/19 10:03 Metoprolol Succinate (Toprol XL) 12.5 mg Q12HR ORAL 12/29/19 21:00 01/25/20 08:59 12/31/19 10:05 Ondansetron HCl (Zofran) 4 mg Q6H PRN IVP Nausea & Vomiting 12/25/19 12:15 01/24/20 12:14 Allergies: Coded Allergies: DIAZEPAM (Verified Allergy, Unknown, 10/07/11) HYDROCODONE (Verified Allergy, Unknown, 07/07/10) MINOXIDIL (Verified Allergy, Unknown, 07/07/10) PENICILLINS (Unverified Allergy, Unknown, 12/25/19) NAME ALERT (Verified Adverse Reaction, Unknown, 07/13/08) ROS Limited/Unobtainable: Yes Subjective 84 YO F admitted with nausea, vomiting and diarrhea. Cover for Itn Med-DR Villanueva Objective Last Vital Signs Date Time Temp Pulse Resp B/P (MAP) Pulse Ox O2 Delivery O2 Flow Rate FiO2 12/31/19 12:00 97.7 68 19 141/70 (93) 98 12/31/19 09:00 Room Air Laboratory Tests Test 12/31/19 05:40 12/31/19 06:10 White Blood Count 4.5 K/UL (4.8-10.8) L Red Blood Count 3.28 M/UL (4.20-5.40) L Hemoglobin 9.7 G/DL (12.0-16.0) L Hematocrit 29.8 % (37.0-47.0) L Mean Corpuscular Volume 91 FL (80-99) Mean Corpuscular Hemoglobin 29.6 PG (27.0-31.0) Mean Corpuscular Hemoglobin Concent 32.5 G/DL (32.0-36.0) Red Cell Distribution Width 14.3 % (11.6-14.8) Platelet Count 162 K/UL (150-450) Mean Platelet Volume 5.2 FL (6.5-10.1) L Neutrophils (%) (Auto) 63.9 % (45.0-75.0) Lymphocytes (%) (Auto) 20.9 % (20.0-45.0) Monocytes (%) (Auto) 11.0 % (1.0-10.0) H Eosinophils (%) (Auto) 3.5 % (0.0-3.0) H Basophils (%) (Auto) 0.8 % (0.0-2.0) Sodium Level 143 MMOL/L (136-145) Potassium Level 4.5 MMOL/L (3.5-5.1) Chloride Level 111 MMOL/L (98-107) H Carbon Dioxide Level 26 MMOL/L (21-32) Anion Gap 6 mmol/L (5-15) Blood Urea Nitrogen 21 mg/dL (7-18) H Creatinine 1.7 MG/DL (0.55-1.30) H Estimat Glomerular Filtration Rate 34.5 mL/min (>60) Glucose Level 87 MG/DL (74-106) Calcium Level 9.1 MG/DL (8.5-10.1) Magnesium Level 1.7 MG/DL (1.8-2.4) L Urine Color Pale yellow Urine Appearance Clear Urine pH 7 (4.5-8.0) Urine Specific [place] 1.005 (1.005-1.035) Urine Protein 1+ (NEGATIVE) H Urine Glucose (UA) Negative (NEGATIVE) Urine Ketones Negative (NEGATIVE) Urine Blood Negative (NEGATIVE) Urine Nitrite Negative (NEGATIVE) Urine Bilirubin Negative (NEGATIVE) Urine Urobilinogen Normal MG/DL (0.0-1.0) Urine Leukocyte Esterase 1+ (NEGATIVE) H Urine RBC 0 /HPF (0 - 2) Urine WBC 0-2 /HPF (0 - 2) Urine Squamous Epithelial Cells Few /LPF (NONE/OCC) Urine Bacteria Occasional /HPF (NONE) Microbiology Date/Time Source Procedure Growth Status 12/30/19 15:58 Urine,Clean Catch Urine Culture - Preliminary Gram Negative Bacillus 1 Resulted Intake and Output 12/30/19 12/31/19 19:00 07:00 Intake Total 1080 ml 740 ml Balance 1080 ml 740 ml Intake Oral 1080 ml 680 ml IV Total 60 ml # Voids 4 4 # Bowel Movements 1 Objective PHYSICAL EXAMINATION: GENERAL: The patient is a well-developed and well-nourished female, in no apparent distress. HEENT: Pupils are equal and responsive to light and accommodation. Extraocular movements are intact. NECK: Supple without lymphadenopathy. CHEST: Lungs are clear to auscultation bilaterally without wheezes or rales. CARDIOVASCULAR: Regular rhythm and rate. S1, S2 are normal without murmurs, rubs, or gallops. ABDOMEN: Soft, diffusely tender with decreased bowel sounds. No evidence of hepatosplenomegaly. Currently, no rebound or guarding noted. EXTREMITIES: Negative for clubbing, cyanosis, or edema. RECTAL/GENITAL: Not performed. NEUROLOGIC: Cranial nerves II through XII are grossly intact without focal deficits. Assessment/Plan Assessment/Plan ASSESSMENT: This is a an 84-year-old female. 1. Gastroenteritis 2. Nausea with vomiting. Diarrhea. 3. Abdominal pain. 4. Diabetes type 2. 5. Congestive heart failure. 6. Hypertension. 7. Cerebrovascular disease. 8. Acute on chronic renal failure. 9. Asthma. 10. Anemia of chronic renal disease. 11. Gastroesophageal reflux disease. 12. Gout. 13. Cardiomyopathy. TREATMENT: 1. Nausea, vomiting, and diarrhea. Stool cultures are pending. The patient is tolerating a soft diet at this time. We will follow recommendations of Gastroenterology. Differential includes viral gastroenteritis versus bacterial infection secondary to food poison. 2. Diabetes type 2. A NovoLog sliding scale has been instituted. 3. Congestive heart failure. 4. Hypertension. Continue metoprolol as above. 5. Cerebrovascular disease. 6. Chronic renal failure. A Nephrology consultation has been obtained with Dr. Castillo. The patient is currently receiving intravenous fluids. We will follow recommendations of Nephrology. 7. Asthma. 8. Anemia of chronic disease. 9. Gastroesophageal reflux disease. Continue Protonix as above. 10. Gout. Continue allopurinol as above. 11. Cardiomyopathy. 12. Discharge planning Aníbal Cuellar MD Dec 31, 2019 15:07
[2019-12-31 16:00] VITALS: BP 122/68
--- NOTE | 2019-12-31 19:28 | NUR ---
HAND-OFF: Report given to SOPHIA Varma.
--- NOTE | 2019-12-31 19:34 | NUR ---
NURSE NOTES: Pt is in bed, awake and alert. No acute distress noted. No nausea or vomiting now.Pt states that she has an appointment with an allergy doctor tomorrow. She wants to be discharged early so she can make the appointment. PICC line will be flushed. Fall precaution in place. Pt asked to call before getting of bed. Bed locked low in position,side rails up and call light within reach. Bed alarm on. Pt will be monitored.
[2019-12-31 20:00] VITALS: BP 109/62
--- NOTE | 2019-12-31 20:01 | Nephrology Progress Note ---
Assessment/Plan Problem List: (1) CKD (chronic kidney disease) (2) HTN (hypertension) (3) Anemia (4) CHF (congestive heart failure) (5) Osteoarthritis, knee (6) Diabetes mellitus (7) GERD (gastroesophageal reflux disease) Plan off IVF would start Lasix as outpt Discussed with PT DC tomorrow Subjective Subjective feels ok Objective Objective Last 24 Hour Vital Signs Date Time Temp Pulse Resp B/P (MAP) Pulse Ox O2 Delivery O2 Flow Rate FiO2 12/31/19 16:00 97.5 71 18 122/68 (86) 97 12/31/19 12:00 97.7 68 19 141/70 (93) 98 12/31/19 10:05 78 140/66 12/31/19 09:00 Room Air 12/31/19 08:00 96.8 78 20 140/66 (90) 96 12/31/19 04:00 97.7 75 18 122/62 (82) 97 12/30/19 21:36 79 126/58 12/30/19 21:00 Room Air 12/30/19 20:00 97.1 79 18 126/58 (80) 97 Intake and Output 12/30/19 12/31/19 19:00 07:00 Intake Total 1080 ml 740 ml Balance 1080 ml 740 ml Intake Oral 1080 ml 680 ml IV Total 60 ml # Voids 4 4 # Bowel Movements 1 Laboratory Tests 12/31/19 05:40: White Blood Count 4.5L, Red Blood Count 3.28L, Hemoglobin 9.7L, Hematocrit 29.8L , Mean Corpuscular Volume 91, Mean Corpuscular Hemoglobin 29.6, Mean Corpuscular Hemoglobin Concent 32.5, Red Cell Distribution Width 14.3, Platelet Count 162, Mean Platelet Volume 5.2L, Neutrophils (%) (Auto) 63.9, Lymphocytes ( %) (Auto) 20.9, Monocytes (%) (Auto) 11.0H, Eosinophils (%) (Auto) 3.5H, Basophils (%) (Auto) 0.8, Sodium Level 143, Potassium Level 4.5, Chloride Level 111H, Carbon Dioxide Level 26, Anion Gap 6, Blood Urea Nitrogen 21H, Creatinine 1.7H, Estimat Glomerular Filtration Rate 34.5, Glucose Level 87, Calcium Level 9.1, Magnesium Level 1.7L 12/31/19 06:10: Urine Color Pale yellow, Urine Appearance Clear, Urine pH 7, Urine Specific [place] 1.005, Urine Protein 1+H, Urine Glucose (UA) Negative, Urine Ketones Negative, Urine Blood Negative, Urine Nitrite Negative, Urine Bilirubin Negative , Urine Urobilinogen Normal, Urine Leukocyte Esterase 1+H, Urine RBC 0, Urine WBC 0-2, Urine Squamous Epithelial Cells Few, Urine Bacteria Occasional Height (Feet): 5 Height (Inches): 4.00 Weight (Pounds): 184 Cardiovascular: normal rate Respiratory/Chest: lungs clear Extremities: moderate edema, severe edema Amor Flores MD Dec 31, 2019 20:00
[2019-12-31] MEDS: Dyna-Hex 2% Top Sol 2oz TOPIC SCH (20:42)
[2019-12-31] MEDS: Iron Sucrose 100 MG in NS 55 ML IV SCH (20:43)
[2020-01-01] VITALS: BP 128/79
--- NOTE | 2020-01-01 03:00 | NUR ---
NURSE NOTES: Pt is asleep. No acute distress noted.
[2020-01-01 04:00] VITALS: BP 146/68
[2020-01-01 06:33] LABS: BASOPHILS % (AUTO) 1.2 % (0.0-2.0); EOSINOPHILS % (AUTO) 4.3 % (0.0-3.0); HEMATOCRIT 30.9 % (37.0-47.0); HEMOGLOBIN 9.9 G/DL (12.0-16.0); LYMPHOCYTES % (AUTO) 22.2 % (20.0-45.0); MEAN CORPUSCULAR VOLUME 92 FL (80-99); NEUTROPHILS % (AUTO) 63.3 % (45.0-75.0); PLATELET COUNT 165 K/UL (150-450); RED BLOOD COUNT 3.34 M/UL (4.20-5.40); RED CELL DISTRIBUTION WIDTH 14.6 % (11.6-14.8); WHITE BLOOD COUNT 5.3 K/UL (4.8-10.8)
[2020-01-01 06:53] LABS: ANION GAP 7 mmol/L (5-15); BLOOD UREA NITROGEN 19 mg/dL (7-18); CALCIUM 9.1 MG/DL (8.5-10.1); CARBON DIOXIDE 26 MMOL/L (21-32); CHLORIDE 108 MMOL/L (98-107); CREATININE 1.6 MG/DL (0.55-1.30); POTASSIUM 4.9 MMOL/L (3.5-5.1); SODIUM 141 MMOL/L (136-145)
--- NOTE | 2020-01-01 07:30 | NUR ---
HAND-OFF: Report given to SOPHIA Rael.Informed to oncoming RN that patient wishes to be discharged today, pt has appointment with an media reconciliation specialist.
--- NOTE | 2020-01-01 07:55 | NUR ---
NURSE NOTES: Received patient in bed awake. No SOB or acute distress. PICC line intact, dressing intact. No complaints of nausea and vomiting. HOB elevated. Bed locked in lowest position. Call light within reach. Will continue plan of care.
[2020-01-01 08:00] VITALS: BP 141/69
--- NOTE | 2020-01-01 08:14 | NUR ---
NURSE NOTES: Informed Dr Villanueva that patient wants to be discharged today. Awaiting response.
[2020-01-01] MEDS: Magnesium Oxide 400mg tab ORAL SCH (09:05)
[2020-01-01] MEDS: Aspirin EC 325mg tab ORAL SCH (09:05)
[2020-01-01] MEDS: Metoprolol Succinate XL 25mg tab ORAL SCH (09:06)
[2020-01-01] MEDS: Heparin 5000 units/ml inj SUBQ SCH (09:09)
[2020-01-01] MEDS: Hydrocortisone 1% Cr 30gm TOPIC SCH (09:13)
--- NOTE | 2020-01-01 11:00 | NUR ---
NURSE NOTES: Patient ok for discharge as per Dr Villanueva, to DC picc line prior. Patricia MORTENSEN made aware.
--- NOTE | 2020-01-01 11:53 | Nephrology Progress Note ---
Assessment/Plan Problem List: (1) CKD (chronic kidney disease) (2) HTN (hypertension) (3) Anemia (4) CHF (congestive heart failure) (5) Osteoarthritis, knee (6) Diabetes mellitus (7) GERD (gastroesophageal reflux disease) Plan would start Lasix as outpt Discussed with PT DC today Subjective Subjective feels ok Objective Objective Last 24 Hour Vital Signs Date Time Temp Pulse Resp B/P (MAP) Pulse Ox O2 Delivery O2 Flow Rate FiO2 01/01/20 09:06 73 141/69 01/01/20 09:00 Room Air 01/01/20 08:00 97.8 73 17 141/69 (93) 95 01/01/20 04:00 97.3 66 19 146/68 (94) 98 01/01/20 00:00 98.4 88 20 128/79 (95) 98 12/31/19 21:00 Room Air 12/31/19 20:43 94 109/62 12/31/19 20:00 97.9 94 19 109/62 (78) 95 12/31/19 16:00 97.5 71 18 122/68 (86) 97 12/31/19 12:00 97.7 68 19 141/70 (93) 98 Intake and Output 12/31/19 01/01/20 19:00 07:00 Intake Total 960 ml 60 ml Balance 960 ml 60 ml Intake Oral 960 ml IV Total 60 ml # Voids 4 2 Laboratory Tests 01/01/20 05:45: White Blood Count 5.3, Red Blood Count 3.34L, Hemoglobin 9.9L, Hematocrit 30.9L , Mean Corpuscular Volume 92, Mean Corpuscular Hemoglobin 29.5, Mean Corpuscular Hemoglobin Concent 31.9L, Red Cell Distribution Width 14.6, Platelet Count 165, Mean Platelet Volume 5.6L, Neutrophils (%) (Auto) 63.3, Lymphocytes (%) (Auto) 22.2, Monocytes (%) (Auto) 9.0, Eosinophils (%) (Auto) 4.3H, Basophils (%) (Auto) 1.2, Sodium Level 141, Potassium Level 4.9, Chloride Level 108H, Carbon Dioxide Level 26, Anion Gap 7, Blood Urea Nitrogen 19H, Creatinine 1.6H, Estimat Glomerular Filtration Rate 37.1, Glucose Level 84, Calcium Level 9.1 Height (Feet): 5 Height (Inches): 4.00 Weight (Pounds): 184 Cardiovascular: normal rate Respiratory/Chest: lungs clear Extremities: moderate edema Amor Flores MD Jan 01, 2020 11:53
[2020-01-01 12:00] VITALS: BP 136/59
--- NOTE | 2020-01-01 12:50 | NUR ---
CASE MANAGEMENT:DISCHARGE PLAN PATIENT HAS BEEN REFERRED BACK TO [facility] P: [phone] F: [phone] CLINICALS FAXED BY ZAIN KUMAR PLANNER FOLLOW UP CALL MADE. PER MAE, ACCEPTED TO RETURN RM 214 [facility] Addendum: 01/01/20 at 1302 by TAE SCHULER LVN LVN BLS AMBULANCE SCHEDULED WITH [facility] @ EXT [id number] WITH ETA @ 1400 PM RN SUE AWARE
--- NOTE | 2020-01-01 14:00 | NUR ---
NURSE NOTES: Patient discharged to [facility] in stable condition via ambulance, spoke with Patricia. PICC line removed as ordered, measured to be at 43cm. No new skin issues noted. Belongings accounted for and given to patient. Transported accompanied by ambulance personnel.
--- NOTE | 2020-01-01 14:04 | Pulmonology Progress Note ---
Assessment/Plan Problems: (1) UTI (urinary tract infection) (2) Nausea, vomiting, and diarrhea (3) Peripheral edema (4) Asthma (5) Gastroenteritis (6) Anemia (7) CKD (chronic kidney disease) (8) Cardiomyopathy (9) GERD (gastroesophageal reflux disease) (10) Gout (11) HTN (hypertension) (12) Cerebral vascular disease (13) Diabetes mellitus Assessment/Plan improving improving check echo, EF 60, PA 40, mild pulmonary hypertension venous doppler of legs anemia w/u including OB of stool renal w/u GI evaluation symptomatic treatment Subjective ROS Limited/Unobtainable: No Constitutional: Reports: no symptoms HEENT: Repors: no symptoms Respiratory: Reports: no symptoms Allergies: Coded Allergies: DIAZEPAM (Verified Allergy, Unknown, 10/07/11) HYDROCODONE (Verified Allergy, Unknown, 07/07/10) MINOXIDIL (Verified Allergy, Unknown, 07/07/10) PENICILLINS (Unverified Allergy, Unknown, 12/25/19) NAME ALERT (Verified Adverse Reaction, Unknown, 07/13/08) Objective Last 24 Hour Vital Signs Date Time Temp Pulse Resp B/P (MAP) Pulse Ox O2 Delivery O2 Flow Rate FiO2 01/01/20 12:00 97.4 68 18 136/59 (84) 96 01/01/20 09:06 73 141/69 01/01/20 09:00 Room Air 01/01/20 08:00 97.8 73 17 141/69 (93) 95 01/01/20 04:00 97.3 66 19 146/68 (94) 98 01/01/20 00:00 98.4 88 20 128/79 (95) 98 12/31/19 21:00 Room Air 12/31/19 20:43 94 109/62 12/31/19 20:00 97.9 94 19 109/62 (78) 95 12/31/19 16:00 97.5 71 18 122/68 (86) 97 Intake and Output 12/31/19 01/01/20 19:00 07:00 Intake Total 960 ml 60 ml Balance 960 ml 60 ml Intake Oral 960 ml IV Total 60 ml # Voids 4 2 General Appearance: WD/WN HEENT: normocephalic, atraumatic Respiratory/Chest: chest wall non-tender, lungs clear Breasts: no masses Cardiovascular: normal peripheral pulses Abdomen: normal bowel sounds, soft, non tender, no organomegaly Genitourinary: normal external genitalia Extremities: no cyanosis Neurologic/Psychiatric: franchise specialist II-XII grossly normal, no motor/sensory deficits Microbiology Date/Time Source Procedure Growth Status 12/30/19 15:58 Urine,Clean Catch Urine Culture - Preliminary Escherichia Coli Gram Positive Cocci Resulted Laboratory Tests 01/01/20 05:45: White Blood Count 5.3, Red Blood Count 3.34L, Hemoglobin 9.9L, Hematocrit 30.9L , Mean Corpuscular Volume 92, Mean Corpuscular Hemoglobin 29.5, Mean Corpuscular Hemoglobin Concent 31.9L, Red Cell Distribution Width 14.6, Platelet Count 165, Mean Platelet Volume 5.6L, Neutrophils (%) (Auto) 63.3, Lymphocytes (%) (Auto) 22.2, Monocytes (%) (Auto) 9.0, Eosinophils (%) (Auto) 4.3H, Basophils (%) (Auto) 1.2, Sodium Level 141, Potassium Level 4.9, Chloride Level 108H, Carbon Dioxide Level 26, Anion Gap 7, Blood Urea Nitrogen 19H, Creatinine 1.6H, Estimat Glomerular Filtration Rate 37.1, Glucose Level 84, Calcium Level 9.1 Current Medications Medications (Trade) Dose Ordered Sig/Liss Route PRN Reason Start Time Stop Time Status Last Admin Dose Admin Acetaminophen (Tylenol) 650 mg Q4H PRN ORAL Mild Pain (Pain Scale 1-3) 12/25/19 12:15 01/24/20 12:14 01/01/20 09:10 Allopurinol (allopurinoL) 300 mg DAILY ORAL 12/30/19 09:00 01/29/20 08:59 01/01/20 09:06 Aspirin (Ecotrin) 325 mg DAILY ORAL 12/26/19 09:00 01/25/20 08:59 01/01/20 09:05 Chlorhexidine Gluconate (Katey-Hex 2%) 1 applic DAILY@1999 TOPIC 12/29/19 20:00 01/28/20 19:59 12/31/19 20:42 Dextrose (Dextrose 50%) 25 ml Q30M PRN IV Hypoglycemia 12/25/19 12:15 01/24/20 12:14 Dextrose (Dextrose 50%) 50 ml Q30M PRN IV Hypoglycemia 12/25/19 12:15 01/24/20 12:14 Famotidine (Pepcid) 40 mg DAILY ORAL 12/26/19 09:00 01/25/20 08:59 01/01/20 09:05 Gabapentin (Neurontin) 300 mg QID ORAL 12/26/19 13:00 01/24/20 12:59 01/01/20 09:05 Heparin Sodium (Porcine) (Heparin 5000 units/ml) 5,000 units EVERY 12 HOURS SUBQ 12/25/19 21:00 01/24/20 20:59 01/01/20 09:09 Hydrocortisone (Hydrocortisone) 1 applic DAILY TOPIC 12/28/19 10:00 01/27/20 09:59 01/01/20 09:13 Iron Sucrose 100 mg/Sodium Chloride 60 ml @ 240 mls/hr BEDTIME IV 12/28/19 21:00 01/01/20 21:14 12/31/19 20:43 Loperamide HCl (Imodium) 2 mg Q4H PRN ORAL Diarrhea 12/27/19 14:15 01/26/20 14:14 Magnesium Oxide (Mag-Ox 400mg) 400 mg BID ORAL 12/29/19 11:15 01/28/20 11:14 01/01/20 09:05 Metoprolol Succinate (Toprol XL) 12.5 mg Q12HR ORAL 12/29/19 21:00 01/25/20 08:59 01/01/20 09:06 Ondansetron HCl (Zofran) 4 mg Q6H PRN IVP Nausea & Vomiting 12/25/19 12:15 01/24/20 12:14 Roberta Durán MD Jan 01, 2020 14:04
--- NOTE | 2020-01-02 08:19 | Discharge Summary ---
Discharge Summary Discharge Summary _ DATE OF ADMISSION: 12/25/2019 DATE OF DISCHARGE: 01/01/2020 DISCHARGED BY: Dr. Bishop REASON FOR ADMISSION: 84 years old female with past medical history of hypertension, diabetes mellitus , CVA, resident of assisted living, presented with nausea ,vomiting and diarrhea after eating a chicken sandwich. Patient reported diffuse mild abdominal cramping. No fever or chills. No chest pain. No shortness of breath. . No dysuria. Upon evaluation patient demonstrated low-grade fever , blood pressure was elevated. Laboratory work-up revealed no leukocytosis, mild anemia. Potassium 5.3. BUN 30, creatinine 2.4. Glucose 121. Lactic acid 1.6. Stable LFT. Lipase within normal limits. Troponin negative. Albumin 2.7. Urinalysis revealed +2 protein , borderline pyuria , no bacteria. CT of the abdomen and pelvis demonstrated no definite acute abnormality. Patient subsequently admitted to medical surgical floor for further management. CONSULTANTS: pulmonary critical care Dr. Durán ID specialist Dr. Moss houseperson Dr. Flores [facility] COURSE: Patient admitted to medical surgical floor. Patient started on IV fluids. Renal parameters and electrolytes were closely monitored. Electrolytes corrected as needed. Food Service Specialist followed. Renal ultrasound revealed no hydronephrosis, normal bilateral kidney echogenicity. Patient initially was on maintenance dose of diuretics which stopped due to worsening renal failure. Antiemetic provided as needed. Stool culture and stool for C. difficile were negative. Dietary recommendations implemented in plan of care. Blood pressure was managed with beta carter and remained stable. Echocardiogram revealed preserved ejection fraction of 60% with no evidence of wall motion abnormality. Evidence of moderate pulmonary hypertension. Diuretics were on hold given acute kidney injury. Supplemental oxygen provided as needed to keep pulse oximetry above 92%. Pulmonary toilet was on board as needed. No evidence of asthma exacerbation. Chest x-ray was stable. Venous duplex bilateral lower extremity was done due to r lower extremity edema , but was negative for acute DVT. DVT prophylaxis provided. Patient complained of the swelling on the left breast , and subsequently undergone breast ultrasound , which was unremarkable. Hemoglobin and hematocrit were closely monitored with goal to keep hemoglobin above 7. Anemia work-up was consistent with anemia of iron deficiency . Patient received IV Venofer. Urine culture revealed E. coli . Patient had no urinary complaints. Per ID specialist patient had asymptomatic bacteriuria . ID specialist recommended to keep patient off antibiotic , unless febrile , leukocytosis or had urinary complaints . GI prophylaxis provided. Pain management was addressed as needed. Abdominal pain resolved Antiemetic were on board as needed. Diet slowly advanced as tolerated. Stool for occult blood was negative. CEA within normal limits. Patient symptomatically improved . Abdominal pain resolved . Patient was able to tolerate diet. Hemoglobin 9.9, hematocrit 30.9. Creatinine trending down. Food Service Specialist cleared patient to start Lasix as outpatient. Patient stabilized and was ready for transfer back to assisted living for continuation of care. FINAL DIAGNOSES: Nausea , vomiting and diarrhea, likely viral gastroenteritis or food poisoning - resolved Acute renal failure likely due to dehydration and diuretic use on chronic kidney disease Hypertension Asthma Anemia of iron deficiency Protein calorie malnutrition Asymptomatic bacteriuria Edema bilateral lower extremity CHF Knee osteoarthritis GERD DISCHARGE MEDICATIONS: See Medication Reconciliation list. DISCHARGE INSTRUCTIONS: Patient was discharged to assisted living follow-up with a primary care provider in 1 week. Princess Chavez NP Jan 02, 2020 08:19
== END 2020-01-01 14:40 | DRG 392 ==
LOC: EDBD 07:18 → EDBEDREQ 07:45 → EMR 08:00 → EDBEDREQ 10:32 → 4E 11:05
PROC: 02HV33Z Insertion of Infusion Device into Superior Vena Cava, Percutaneous Approach (ICD-10-PCS; principal; 2019-12-29)
DX: A08.4 Viral intestinal infection, unspecified (principal); N17.9 Acute kidney failure, unspecified; E46 Unspecified protein-calorie malnutrition; I13.0 Hypertensive heart and chronic kidney disease with heart failure and stage 1 through stage 4 chronic kidney disease, or unspecified chronic kidney disease; I42.9 Cardiomyopathy, unspecified; N39.0 Urinary tract infection, site not specified; E11.22 Type 2 diabetes mellitus with diabetic chronic kidney disease; N18.9 Chronic kidney disease, unspecified; I50.9 Heart failure, unspecified; A05.9 Bacterial foodborne intoxication, unspecified; E86.0 Dehydration; Z88.6 Allergy status to analgesic agent; Z88.0 Allergy status to penicillin; Z88.8 Allergy status to other drugs, medicaments and biological substances; M10.9 Gout, unspecified; Z79.82 Long term (current) use of aspirin; K21.9 Gastro-esophageal reflux disease without esophagitis; D63.1 Anemia in chronic kidney disease; J45.909 Unspecified asthma, uncomplicated; D50.9 Iron deficiency anemia, unspecified; M19.90 Unspecified osteoarthritis, unspecified site; Z90.49 Acquired absence of other specified parts of digestive tract; I67.9 Cerebrovascular disease, unspecified
CPT/HCPCS: 36415; 36569; 71045; 74176; 76770; 76937; 80048; 80053; 80061; 81001; 81003; 82270; 82378; 82550; 82553; 82607; 82728; 82746; 82977; 83036; 83540; 83550; 83605; 83615; 83690; 83735; 83880; 84100; 84133; 84300; 84443; 84484; 84550; 85007; 85025; 85044; 85060; 85610; 85651; 85730; 86140; 87045; 87086; 87181; 87324; 89050; 93005; 93306; 93970; 96374; 99285; J2405

== ENCOUNTER 2020-01-04 11:42 | Emergency (ER) | payer MEDICARE, MEDICAID ==
[~2020-01-04] VITALS: Ht 157.5 cm; Wt 83.0 kg
[~2020-01-04 11:42] MED LIST changes: +ASPIR-TRIN325 M1 ORAL
[2020-01-04 11:55] VITALS: BP 125/70
--- NOTE | 2020-01-04 11:55 | NUR ---
ED Nurse Note: Pt walked in with her son from [facility] due to bilateral leg pain and swelling x 4 days. Pt has hx of CHF and has been taken off her diuretic pill by her doctor. AAO x,4 ambulatory and using her cane. Note BLE edmea and chronic severe swelling. No respiratory distress.
--- NOTE | 2020-01-04 12:12 | Emergency Room Report ---
History of Present Illness General Chief Complaint: Edema Source: Patient Present Illness HPI 84-year-old female history of CHF history of MORGAN history of CKD recently admitted to the hospital for diarrhea, presents due to bilateral lower extremity swelling x1 week patient reports that they have discontinued her diuretic she denies any chest pain shortness of breath no orthopnea, aggravated by not having her diuretic alleviated by her diuretic, severity is mild, constant patient presents for evaluation Allergies: Coded Allergies: DIAZEPAM (Verified Allergy, Unknown, 10/07/11) HYDROCODONE (Verified Allergy, Unknown, 07/07/10) MINOXIDIL (Verified Allergy, Unknown, 07/07/10) PENICILLINS (Unverified Allergy, Unknown, 12/25/19) NAME ALERT (Verified Adverse Reaction, Unknown, 07/13/08) Patient History Past Medical History: see triage record Reviewed Nursing Documentation: PMH: Agreed; PSxH: Agreed Nursing Documentation-PMH Past Medical History: No History, Except For Hx Hypertension: Yes Hx Asthma: Yes Hx Diabetes: Yes Hx Cancer: No Hx Neurological Problems: Yes Hx Cerebrovascular Accident: Yes Hx Syncope: No Hx Weakness: Yes Review of Systems All Other Systems: negative except mentioned in HPI Physical Exam Vital Signs Date Time Temp Pulse Resp B/P (MAP) Pulse Ox O2 Delivery O2 Flow Rate FiO2 01/04/20 11:45 98.2 85 15 126/68 (87) 92 Room Air Sp02 EP Interpretation: reviewed, normal General Appearance: well appearing, no apparent distress, alert Head: normocephalic, atraumatic Eyes: bilateral eye PERRL, bilateral eye EOMI ENT: uvula midline, moist mucus membranes Neck: supple, thyroid normal, supple/symm/no masses Respiratory: lungs clear, no respiratory distress, no retraction, no accessory muscle use Cardiovascular #1: normal peripheral pulses, regular rate, rhythm, no gallop, no murmur, edema - Bilateral lower edema, pitting Gastrointestinal: non tender, soft, no guarding, no rebound Musculoskeletal: normal inspection Neurologic: alert, oriented x3 Psychiatric: mood/affect normal Skin: no rash, warm/dry Medical Decision Making Diagnostic Impression: Primary Impression: Edema Qualified Codes: R60.9 - Edema, unspecified ER Course 84-year-old female history of CHF history of CKD presents with bilateral worsening edema x1 week, patient most likely having a component of CHF retaining fluid due to not having her diuretic at the nursing facility will restart diuretic, first dose given today, Primary care doctor will coordinate care and follow-up with the patient Patient does not want any blood drawn will provide a short-term prescription of Bumex Disposition home with return precautions follow-up with PCP Last Vital Signs Date Time Temp Pulse Resp B/P (MAP) Pulse Ox O2 Delivery O2 Flow Rate FiO2 01/04/20 11:55 76 17 Room Air 01/04/20 11:45 98.2 126/68 (87) 92 Disposition: HOME, SELF-CARE Condition: Stable Scripts Bumetanide* (BUMETANIDE*) 1 Mg Tablet 1 MG ORAL BID, #14 TAB Prov: Eliecer Pollock MD 01/04/20 Referrals: Christopher Villanueva MD Patient Instructions: Edema, [id number] Additional Instructions: The patient was provided with discharge instructions, notified to follow-up with a primary care doctor and or specialist in the next 24-48 hours, and to return to the ED if they have worsening of their symptoms. Please note that this report is being documented using REHAPP technology. This can lead to erroneous entry secondary to incorrect interpretation by the dictating instrument. Eliecer Pollock MD Jan 04, 2020 12:12
[2020-01-04] MEDS ORDERED: Bumetanide 1mg tab ORAL ONE (12:15)
[2020-01-04] MEDS ORDERED: BUMETANIDE1 MG ORAL (12:41)
[2020-01-04 12:56] VITALS: BP 133/74
--- NOTE | 2020-01-04 12:56 | NUR ---
ER DISCHARGE NOTE: Patient is cleared to be discharged per ERMD, pt is aox4, on room air, with stable vital signs. pt was given dc and prescription instructions, pt was able to verbalize understanding, pt id band removed. pt is able to ambulate with steady gait. pt took all belongings and left with her son.
== END 2020-01-04 12:56 | disposition home or self-care (01) ==
LOC: EMR 12:25
DX: R60.9 Edema, unspecified (principal); I50.9 Heart failure, unspecified; I10 Essential (primary) hypertension; J45.909 Unspecified asthma, uncomplicated; E11.9 Type 2 diabetes mellitus without complications; Z86.73 Personal history of transient ischemic attack (TIA), and cerebral infarction without residual deficits; Z88.0 Allergy status to penicillin; Z88.8 Allergy status to other drugs, medicaments and biological substances
CPT/HCPCS: 99282

== ENCOUNTER 2020-03-25 11:39 | Inpatient (IN) | payer MEDICARE, MEDICAID ==
[~2020-03-25] VITALS: Ht 160 cm; Wt 104.5 kg
[2020-03-25] MEDS ORDERED: Sodium Chloride 3,300 ML IVLG ONE (12:00)
[2020-03-25 12:45] VITALS: BP 152/63
[2020-03-25 13:24] LABS: APPEARANCE,URINE CLEAR; BILIRUBIN, URINE NEGATIVE (NEGATIVE); COLOR,URINE PALE YELLOW; GLUCOSE, URINE (UA) NEGATIVE (NEGATIVE); KETONES,URINE NEGATIVE (NEGATIVE); LEUKOCYTE ESTERASE ,URINE NEGATIVE (NEGATIVE); NITRITE,URINE NEGATIVE (NEGATIVE); PH,URINE 6 (4.5-8.0); PROTEIN,URINE NEGATIVE (NEGATIVE); UROBILINOGEN,URINE NORMAL MG/DL (0.0-1.0)
[2020-03-25] MEDS ORDERED: ROCATROL0.25 MCG PO (13:37)
[2020-03-25] MEDS ORDERED: HYDROXYZINE HCL25 M1 PO (13:37)
[2020-03-25] MEDS ORDERED: DEXILANT60 MG ORAL (13:37)
[2020-03-25] MEDS ORDERED: CRESTOR10 M2 ORAL (13:37)
[2020-03-25] MEDS ORDERED: SYMBICORT 16010.2 G1 IH (13:37)
[2020-03-25] MEDS ORDERED: ZYRTEC10 MG ORAL (13:37)
[2020-03-25 14:02] LABS: BASOPHILS % (AUTO) 0.7 % (0.0-2.0); EOSINOPHILS % (AUTO) 3.9 % (0.0-3.0); HEMATOCRIT 37.8 % (37.0-47.0); HEMOGLOBIN 11.9 G/DL (12.0-16.0); LYMPHOCYTES % (AUTO) 21.3 % (20.0-45.0); MEAN CORPUSCULAR VOLUME 93 FL (80-99); NEUTROPHILS % (AUTO) 64.1 % (45.0-75.0); PLATELET COUNT 161 K/UL (150-450); RED BLOOD COUNT 4.05 M/UL (4.20-5.40); RED CELL DISTRIBUTION WIDTH 15.5 % (11.6-14.8); WHITE BLOOD COUNT 3.8 K/UL (4.8-10.8)
[2020-03-25 14:05] LABS: ANION GAP 9 mmol/L (5-15); BLOOD UREA NITROGEN 26 mg/dL (7-18); CALCIUM 9.2 MG/DL (8.5-10.1); CARBON DIOXIDE 27 MMOL/L (21-32); CHLORIDE 108 MMOL/L (98-107); CREATININE 2.5 MG/DL (0.55-1.30); POTASSIUM 4.5 MMOL/L (3.5-5.1); SODIUM 144 MMOL/L (136-145)
[2020-03-25 14:18] LABS: ALANINE AMINOTRANSFERASE 23 U/L (12-78); ALBUMIN/GLOBULIN RATIO 0.6 (1.0-2.7); ALKALINE PHOSPHATASE 138 U/L (46-116); ASPARTATE AMINO TRANSFERASE 33 U/L (15-37); BILIRUBIN,TOTAL 0.3 MG/DL (0.2-1.0); CKMB 0.7 NG/ML (0.0-3.6); CREATINE KINASE 76 U/L (26-308)
--- NOTE | 2020-03-25 14:29 | Diagnostic Imaging Report ---
Indication: Left Leg pain and swelling Technique: Grayscale and duplex Doppler imaging of the veins in left lower extremity performed in real time utilizing compression and augmentation. Comparison: 12/25/2019 Findings: Duplex Doppler interrogation of the veins in left lower extremity is performed from the common femoral vein to the popliteal vein. Normal venous compressibility demonstrated throughout. No thrombus identified. Waveform analysis shows good respiratory phasicity and augmentation. No evidence of thrombosis in the visualized left calf veins. A small suprapatellar joint effusion is noted. IMPRESSION: No evidence of deep venous thrombosis involving the visualized veins of the left lower extremity. Small suprapatellar joint effusion.
--- NOTE | 2020-03-25 14:32 | Diagnostic Imaging Report ---
Indication: Chest pain shortness of breath Technique: XRAY Chest 1v Comparison: 12/25/2019 Findings: Heart size and mediastinal contours are stable. There are atherosclerotic calcifications in the aorta. There is increase in interstitial markings with a somewhat peripheral predominance. There is some perihilar fullness. No significant pleural effusion. No evidence of pneumothorax. There are degenerative changes in the spine. No acute osseous abnormality. IMPRESSION: Subtle perihilar and peripheral-based interstitial opacities. Although findings may be related to fluid overload/CHF, possibility of multifocal pneumonia (including viral pneumonia) is not excluded and correlation with clinical findings is recommended. Follow-up recommended.
[2020-03-25 14:43] VITALS: BP 151/68
--- NOTE | 2020-03-25 14:46 | Emergency Room Report ---
History of Present Illness General Chief Complaint: Pain Source: Patient, Medical Record Present Illness HPI This patient states that she has had an ongoing skin condition that has been very difficult to treat. Been to a sole stitcher hand. She has been on multiple topical creams. She states she was started on a new cream and it has caused worsening of the skin all over her body. She states her left leg also became more swollen. She denies recent illness. She denies cough or congestion. She denies fever or chills. She denies nausea or vomiting. She has no other complaints. Allergies: Coded Allergies: DIAZEPAM (Verified Allergy, Unknown, 10/07/11) HYDROCODONE (Verified Allergy, Unknown, 07/07/10) MINOXIDIL (Verified Allergy, Unknown, 07/07/10) PENICILLINS (Unverified Allergy, Unknown, 03/26/20) tolerates cephalosporin NAME ALERT (Verified Adverse Reaction, Unknown, 07/13/08) COVID-19 Screening Contact w/high risk pt: No Recent Travel to affected area: No Experienced COVID-19 symptoms?: No COVID-19 Testing performed FISH HATCHERY MANAGER: No Patient History Past Medical History: see triage record, HTN, AR, CAD, CHF, asthma, GERD, renal disease Past Surgical History: appy, hysterectomy Social History: Denies: smoking, alcohol use, drug use Reviewed Nursing Documentation: PMH: Agreed; PSxH: Agreed Nursing Documentation-PMH Past Medical History: No History, Except For Hx Hypertension: Yes Hx Asthma: Yes Hx Diabetes: Yes Hx Cancer: No Hx Gastrointestinal Problems: Yes - GERD Hx Dialysis: No - CKD Hx Neurological Problems: Yes Hx Cerebrovascular Accident: Yes Hx Syncope: No Hx Weakness: Yes Review of Systems All Other Systems: negative except mentioned in HPI Physical Exam Vital Signs Date Time Temp Pulse Resp B/P (MAP) Pulse Ox O2 Delivery O2 Flow Rate FiO2 03/25/20 11:39 99.3 68 16 155/68 (97) 95 Room Air Sp02 EP Interpretation: reviewed, normal General Appearance: no apparent distress, alert, GCS 15, non-toxic, obese Head: normocephalic, atraumatic Eyes: bilateral eye normal inspection, bilateral eye PERRL ENT: hearing grossly normal, normal pharynx, no angioedema, normal voice Neck: normal inspection, full range of motion, supple/symm/no masses Respiratory: chest non-tender, lungs clear, normal breath sounds, no respiratory distress, no retraction, no accessory muscle use, speaking full sentences Cardiovascular #1: regular rate, rhythm, no edema Gastrointestinal: normal bowel sounds, non tender, soft, non-distended, no guarding, no rebound, overweight Rectal: deferred Musculoskeletal: back normal, normal range of motion, swelling - BLE lymphedema Neurologic: alert, motor strength/tone normal, oriented x3, sensory intact, responsive, speech normal Psychiatric: judgement/insight normal, memory normal, mood/affect normal, no suicidal/homicidal ideation Skin: other - Diffuse peeling, dry, scaling lesions all over body (chronic) Medical Decision Making Diagnostic Impression: Primary Impression: Peripheral edema Additional Impressions: ARF (acute renal failure) Skin rash ER Course This patient has been followed by her primary care physician. She has had difficult to treat for lymphedema and she had been placed on diuretics and multiple medications for her ongoing eczema-like skin condition. She presents today with ongoing lymphedema and unfortunately in renal failure. Likely this is multifactorial but possibly related to diuretic use. Regardless, the patient states she is unable to tolerate her skin condition any further. I discussed the case with her primary care physician who will admit her for further evaluation and treatment. Of note: Patient's chest x-ray did show some interstitial opacities. Therefore , although the patient did not have any other symptoms consistent with COVID- 19. She does present during a COVID-19 pandemic. Therefore, the COVID-19 PCR was ordered and is pending. This patient was evaluated in the context of the global COVID-19 pandemic, which necessitated consideration that the patient might be at risk for infection with the [id number] virus that causes COVID-19. Institutional protocols and algorithms that pertain to the evaluation of patients at risk for COVID-19 and the state of rapid change based on information released by multiple regulatory bodies including the CDC and federal and state organizations. These policies and algorithms were followed during the patient' s care in the ED. Laboratory Tests Test 03/25/20 12:30 03/25/20 13:15 Urine Color Pale yellow Urine Appearance Clear Urine pH 6 (4.5-8.0) Urine Specific [place] 1.015 (1.005-1.035) Urine Protein Negative (NEGATIVE) Urine Glucose (UA) Negative (NEGATIVE) Urine Ketones Negative (NEGATIVE) Urine Blood Negative (NEGATIVE) Urine Nitrite Negative (NEGATIVE) Urine Bilirubin Negative (NEGATIVE) Urine Urobilinogen Normal MG/DL (0.0-1.0) Urine Leukocyte Esterase Negative (NEGATIVE) White Blood Count 3.8 K/UL (4.8-10.8) L Red Blood Count 4.05 M/UL (4.20-5.40) L Hemoglobin 11.9 G/DL (12.0-16.0) L Hematocrit 37.8 % (37.0-47.0) Mean Corpuscular Volume 93 FL (80-99) Mean Corpuscular Hemoglobin 29.4 PG (27.0-31.0) Mean Corpuscular Hemoglobin Concent 31.5 G/DL (32.0-36.0) L Red Cell Distribution Width 15.5 % (11.6-14.8) H Platelet Count 161 K/UL (150-450) Mean Platelet Volume 5.4 FL (6.5-10.1) L Neutrophils (%) (Auto) 64.1 % (45.0-75.0) Lymphocytes (%) (Auto) 21.3 % (20.0-45.0) Monocytes (%) (Auto) 10.0 % (1.0-10.0) Eosinophils (%) (Auto) 3.9 % (0.0-3.0) H Basophils (%) (Auto) 0.7 % (0.0-2.0) Sodium Level 144 MMOL/L (136-145) Potassium Level 4.5 MMOL/L (3.5-5.1) Chloride Level 108 MMOL/L (98-107) H Carbon Dioxide Level 27 MMOL/L (21-32) Anion Gap 9 mmol/L (5-15) Blood Urea Nitrogen 26 mg/dL (7-18) H Creatinine 2.5 MG/DL (0.55-1.30) H Estimated Glomerular Filtration Rate 22.2 mL/min (>60) Glucose Level 88 MG/DL (74-106) Lactic Acid Level 0.90 mmol/L (0.4-2.0) Calcium Level 9.2 MG/DL (8.5-10.1) Total Bilirubin 0.3 MG/DL (0.2-1.0) Aspartate Amino Transferase (AST) 33 U/L (15-37) Alanine Aminotransferase (ALT) 23 U/L (12-78) Alkaline Phosphatase 138 U/L (46-116) H Total Creatine Kinase 76 U/L (26-308) Creatine Kinase MB 0.7 NG/ML (0.0-3.6) Creatine Kinase MB Relative Index 0.9 Troponin I 0.017 ng/mL (0.000-0.056) Total Protein 8.2 G/DL (6.4-8.2) Albumin 3.0 G/DL (3.4-5.0) L Globulin 5.2 g/dL Albumin/Globulin Ratio 0.6 (1.0-2.7) L EKG Diagnostic Results Rate: normal Rhythm: NSR ST Segments: no acute changes Rhythm Strip Diag. Results EP Interpretation: yes Rate: 80's Rhythm: NSR, no PVC's, no ectopy Chest X-Ray Diagnostic Results Chest X-Ray Diagnostic Results : Chest X-Ray Ordered: Yes # of Views/Limited/Complete: 1 View Indication: Other EP Interpretation: Yes Interpretation: other - Subtle perihilar and peripheral-based interstitial opacities. See official report in electronic medical record. Impression: Other - See Above Electronically Signed by: Trinity Baker DO CT/MRI/US Diagnostic Results CT/MRI/US Diagnostic Results : Imaging Test Ordered: US LLE Impression No DVT Last Vital Signs Date Time Temp Pulse Resp B/P (MAP) Pulse Ox O2 Delivery O2 Flow Rate FiO2 03/25/20 12:45 99.3 80 17 152/63 97 Room Air Disposition: ADMITTED INPATIENT Condition: Stable Referrals: Christopher Villanueva MD (PCP) Trinity Baker DO March 25, 2020 14:46
[2020-03-25] MEDS ORDERED: Zolpidem 5mg tab ORAL PRN (16:00)
[2020-03-25] MEDS ORDERED: Miralax 17gm pkt ORAL PRN (16:00)
[2020-03-25] MEDS: NovoLOG Insulin Flexpen SUBQ SCH ×2 (16:30→21:00)
[2020-03-25 17:47] VITALS: BP 123/65
--- NOTE | 2020-03-25 19:05 | History & Physical ---
History and Physical History & Physicial Dictated for Int Med-Dr Villanueva no. [id number] Aníbal Cuellar MD March 25, 2020 19:05
[2020-03-25 20:00] VITALS: BP 151/71
[2020-03-25 20:37] LABS: APPEARANCE,URINE CLEAR; BILIRUBIN, URINE NEGATIVE (NEGATIVE); COLOR,URINE PALE YELLOW; GLUCOSE, URINE (UA) NEGATIVE (NEGATIVE); KETONES,URINE NEGATIVE (NEGATIVE); LEUKOCYTE ESTERASE ,URINE 1+ (NEGATIVE); NITRITE,URINE NEGATIVE (NEGATIVE); PH,URINE 7 (4.5-8.0); PROTEIN,URINE 1+ (NEGATIVE); UROBILINOGEN,URINE NORMAL MG/DL (0.0-1.0)
[2020-03-25] MEDS: Heparin 5000 units/ml inj SUBQ SCH (21:13)
--- NOTE | 2020-03-25 21:15 | History and Physical Report ---
DATE OF ADMISSION: 03/25/2020 CHIEF COMPLAINT: Patient is an 84-year-old female, who presents with a chief complaint of left lower extremity swelling. HISTORY OF PRESENT ILLNESS: Patient is a resident of [facility]. Patient has a history of chronic dermatitis. Patient states a couple days ago, her left lower extremity began to swell. Patient presented to [place] emergency room. Patient was admitted with left lower extremity swelling to rule out acute cellulitis versus deep venous thrombosis. REVIEW OF SYSTEMS: CONSTITUTIONAL: Patient denies weight loss or gain. Patient denies fevers or chills. HEENT: Patient denies ear or throat pain. Patient denies headache. CARDIOVASCULAR: Patient denies palpitations or chest pain. CHEST: Patient denies wheezes or shortness of breath. ABDOMEN: Patient denies nausea, vomiting, diarrhea, or constipation. GENITOURINARY: Patient denies dysuria or increased frequency of urination. NEUROMUSCULAR: Patient denies seizures or generalized weakness. PAST MEDICAL HISTORY: Significant for: 1. Chronic renal failure. 2. Congestive heart failure. 3. Gastroesophageal reflux disease. 4. Diabetes type 2. 5. Anemia. 6. Hypertension. 7. Cerebrovascular disease, status post cerebrovascular accident x3. 8. Obesity. 9. Gout. 10. Cardiomyopathy. PAST SURGICAL HISTORY: Significant for cholecystectomy. CURRENT MEDICATIONS: 1. Allopurinol 100 mg p.o. daily. 2. Aspirin 325 mg p.o. daily. 3. Symbicort 1 puff p.o. daily. 4. Bumetanide 1 mg p.o. twice daily. 5. Calcitriol 0.25 mcg p.o. 3 times weekly. 6. Zyrtec 10 mg p.o. at bedtime. 7. Dexilant 60 mg p.o. daily. 8. Gabapentin 400 mg p.o. 3 times daily. 9. Hydroxyzine 25 mg p.o. q.8h. p.r.n. 10. Metoprolol 25 mg p.o. daily. 11. Oxycodone 30 mg p.o. q.8h. 12. Crestor 5 mg p.o. at bedtime. ALLERGIES: 1. Diazepam. 2. Hydrocodone. 3. Minoxidil. 4. Penicillin. SOCIAL HISTORY: Patient is single and is a resident of [facility]. Patient denies tobacco or alcohol use. PHYSICAL EXAMINATION: VITAL SIGNS: Temperature 99.3, respirations 16, pulse 68, blood pressure 155/68, pulse ox 95% on room air. GENERAL: Patient is well-developed, well-nourished obese female, in no apparent distress. HEENT: Eyes, pupils are equal and responsive to light and accommodation. Extraocular movements are intact. NECK: Supple without lymphadenopathy. CHEST: Lungs are clear to auscultation bilaterally without wheezes or rales. CARDIOVASCULAR: Regular rate. S1-S2 are normal without murmurs, rubs, or gallops. ABDOMEN: Soft, nontender, nondistended. Positive bowel sounds. No evidence of hepatosplenomegaly. Currently, no rebound or guarding. EXTREMITIES: Left leg is swollen when compared to the right. There is 2+ pitting edema on the left. Otherwise, without clubbing or cyanosis. RECTAL/GENITAL: Not performed. NEUROLOGIC: Cranial nerves II through XII are grossly intact without focal deficits. Motor strength is 5/5 bilaterally. Deep tendon reflexes are 2+ plantar. LABORATORY STUDIES: WBC 3.8, hemoglobin 9.9, hematocrit 37.8, platelets 161,000. Sodium 144, potassium 4.5, chloride 108, CO2 27, BUN 26, creatinine 2.5, glucose 88. Troponin 0.017. A venous duplex Doppler of the left lower extremity is pending. A chest x-ray showed perihilar and peripheral interstitial opacities. ASSESSMENT: This is an 84-year-old female. 1. Left lower extremity edema. 2. Acute on chronic renal failure. 3. Congestive heart failure. 4. Gastroesophageal reflux disease. 5. Diabetes type 2. 6. Anemia. 7. Hypertension. 8. Cerebrovascular disease. 9. Diabetes. 10. Gout. 11. Cardiomyopathy. TREATMENT: 1. Left lower extremity edema. A venous duplex Doppler is pending. Await results of venous duplex Doppler. Differential includes cellulitis versus deep venous thrombosis of left lower extremity. 2. Acute on chronic renal failure. A Nephrology consultation has been obtained with Dr. Rafael Castillo. 3. Congestive heart failure. Cardiology consultation has been obtained with Dr. Pierce. 4. Gastroesophageal reflux disease. Continue Protonix as above. 5. Diabetes type 2. A NovoLog sliding scale has been instituted. 6. Anemia. 7. Hypertension. Continue metoprolol as above. 8. Cerebrovascular disease. 9. Obesity. 10. Gout. Continue allopurinol as above. 11. History of cardiomyopathy. Aníbal Cuellar M.D. DR: RENÉE JOB#: [id number] CC:
[2020-03-26 00:24] VITALS: BP 125/67
[2020-03-26 04:14] VITALS: BP 148/73
[2020-03-26] MEDS: NovoLOG Insulin Flexpen SUBQ SCH ×4 (05:59→21:00)
[2020-03-26 07:30] LABS: BASOPHILS % (AUTO) 1.3 % (0.0-2.0); EOSINOPHILS % (AUTO) 4.6 % (0.0-3.0); HEMATOCRIT 36.4 % (37.0-47.0); HEMOGLOBIN 11.7 G/DL (12.0-16.0); LYMPHOCYTES % (AUTO) 25.7 % (20.0-45.0); MEAN CORPUSCULAR VOLUME 93 FL (80-99); NEUTROPHILS % (AUTO) 56.4 % (45.0-75.0); PLATELET COUNT 151 K/UL (150-450); RED CELL DISTRIBUTION WIDTH 15.4 % (11.6-14.8); WHITE BLOOD COUNT 3.7 K/UL (4.8-10.8)
[2020-03-26 07:41] LABS: ALANINE AMINOTRANSFERASE 16 U/L (12-78); ALBUMIN 2.5 G/DL (3.4-5.0); ALBUMIN/GLOBULIN RATIO 0.5 (1.0-2.7); ALKALINE PHOSPHATASE 113 U/L (46-116); ANION GAP 10 mmol/L (5-15); ASPARTATE AMINO TRANSFERASE 28 U/L (15-37); BILIRUBIN,TOTAL 0.3 MG/DL (0.2-1.0); BLOOD UREA NITROGEN 20 mg/dL (7-18); CALCIUM 8.8 MG/DL (8.5-10.1); CARBON DIOXIDE 22 MMOL/L (21-32); CHLORIDE 112 MMOL/L (98-107); CHOLESTEROL 99 MG/DL (< 200); CREATININE 2.1 MG/DL (0.55-1.30); HDL CHOLESTEROL 57 MG/DL (40-60); LACTATE DEHYDROGENASE 185 U/L (81-234); POTASSIUM 4.2 MMOL/L (3.5-5.1); SODIUM 144 MMOL/L (136-145); TRIGLYCERIDES 44 MG/DL (30-150)
[2020-03-26 08:00] VITALS: BP 151/77
[2020-03-26 08:07] LABS: INR 1.1 (0.9-1.1)
[2020-03-26 08:13] LABS: % IRON SATURATION 28 % (15-50); IRON 55 ug/dL (50-175); TOTAL IRON BINDING CAPACITY 194 ug/dL (250-450)
[2020-03-26] MEDS: Aspirin EC 325mg tab ORAL SCH (08:46)
[2020-03-26] MEDS: Allopurinol 100mg Tab ORAL SCH (08:46)
[2020-03-26] MEDS: Metoprolol Succinate XL 25mg tab ORAL SCH (08:47)
[2020-03-26] MEDS: oxyCODONE 15mg IR tab ORAL PRN (08:47)
[2020-03-26] MEDS: Heparin 5000 units/ml inj SUBQ SCH ×2 (08:48→21:12)
[2020-03-26] MEDS: HydrOXYzine tab 25mg tab ORAL PRN (10:10)
[2020-03-26 12:00] VITALS: BP 133/65
--- NOTE | 2020-03-26 12:25 | Cardiology Progress Note ---
Assessment/Plan Assessment/Plan pt has not sx of chf or acs her edema chronic has worsening renla fucntion and since not symtopmatic of dhf will hold off on diuretic until seen by renal crestor and metoprolol to be contineus covid result pending echo nonce covid result known [id number] Objective Last 24 Hour Vital Signs Date Time Temp Pulse Resp B/P (MAP) Pulse Ox O2 Delivery O2 Flow Rate FiO2 03/26/20 12:00 97.7 76 20 133/65 (87) 94 03/26/20 09:00 Room Air 03/26/20 08:47 82 151/77 03/26/20 08:00 97.7 82 20 151/77 (101) 93 03/26/20 04:14 96.8 78 22 148/73 (98) 95 03/26/20 00:24 98.2 81 22 125/67 (86) 97 03/25/20 21:27 Room Air 03/25/20 20:00 97.2 82 19 151/71 (97) 99 03/25/20 19:09 99.3 76 18 125/62 96 Room Air 03/25/20 18:17 Room Air 03/25/20 17:47 99.3 82 16 123/65 97 Room Air 03/25/20 14:43 99.3 84 18 151/68 99 Room Air 03/25/20 12:45 99.3 80 17 152/63 97 Room Air Intake and Output 03/25/20 03/26/20 19:00 07:00 Output Total 30 ml Balance -30 ml Output Urine Total 30 ml # Voids 2 # Bowel Movements 1 Laboratory Tests Test 03/25/20 12:30 03/25/20 13:15 03/25/20 19:30 03/26/20 06:03 Urine Color Pale yellow Pale yellow Urine Appearance Clear Clear Urine pH 6 (4.5-8.0) 7 (4.5-8.0) Urine Specific [place] 1.015 (1.005-1.035) 1.005 (1.005-1.035) Urine Protein Negative (NEGATIVE) 1+ (NEGATIVE) H Urine Glucose (UA) Negative (NEGATIVE) Negative (NEGATIVE) Urine Ketones Negative (NEGATIVE) Negative (NEGATIVE) Urine Blood Negative (NEGATIVE) 1+ (NEGATIVE) H Urine Nitrite Negative (NEGATIVE) Negative (NEGATIVE) Urine Bilirubin Negative (NEGATIVE) Negative (NEGATIVE) Urine Urobilinogen Normal MG/DL (0.0-1.0) Normal MG/DL (0.0-1.0) Urine Leukocyte Esterase Negative (NEGATIVE) 1+ (NEGATIVE) H White Blood Count 3.8 K/UL (4.8-10.8) L 3.7 K/UL (4.8-10.8) L Red Blood Count 4.05 M/UL (4.20-5.40) L 3.90 M/UL (4.20-5.40) L Hemoglobin 11.9 G/DL (12.0-16.0) L 11.7 G/DL (12.0-16.0) L Hematocrit 37.8 % (37.0-47.0) 36.4 % (37.0-47.0) L Mean Corpuscular Volume 93 FL (80-99) 93 FL (80-99) Mean Corpuscular Hemoglobin 29.4 PG (27.0-31.0) 30.1 PG (27.0-31.0) Mean Corpuscular Hemoglobin Concent 31.5 G/DL (32.0-36.0) L 32.3 G/DL (32.0-36.0) Red Cell Distribution Width 15.5 % (11.6-14.8) H 15.4 % (11.6-14.8) H Platelet Count 161 K/UL (150-450) 151 K/UL (150-450) Mean Platelet Volume 5.4 FL (6.5-10.1) L 4.8 FL (6.5-10.1) L Neutrophils (%) (Auto) 64.1 % (45.0-75.0) 56.4 % (45.0-75.0) Lymphocytes (%) (Auto) 21.3 % (20.0-45.0) 25.7 % (20.0-45.0) Monocytes (%) (Auto) 10.0 % (1.0-10.0) 12.0 % (1.0-10.0) H Eosinophils (%) (Auto) 3.9 % (0.0-3.0) H 4.6 % (0.0-3.0) H Basophils (%) (Auto) 0.7 % (0.0-2.0) 1.3 % (0.0-2.0) Sodium Level 144 MMOL/L (136-145) 144 MMOL/L (136-145) Potassium Level 4.5 MMOL/L (3.5-5.1) 4.2 MMOL/L (3.5-5.1) Chloride Level 108 MMOL/L (98-107) H 112 MMOL/L (98-107) H Carbon Dioxide Level 27 MMOL/L (21-32) 22 MMOL/L (21-32) Anion Gap 9 mmol/L (5-15) 10 mmol/L (5-15) Blood Urea Nitrogen 26 mg/dL (7-18) H 20 mg/dL (7-18) H Creatinine 2.5 MG/DL (0.55-1.30) H 2.1 MG/DL (0.55-1.30) H Estimat Glomerular Filtration Rate 22.2 mL/min (>60) 27.0 mL/min (>60) Glucose Level 88 MG/DL (74-106) 77 MG/DL (74-106) Lactic Acid Level 0.90 mmol/L (0.4-2.0) Uric Acid 6.3 MG/DL (2.6-7.2) Calcium Level 9.2 MG/DL (8.5-10.1) 8.8 MG/DL (8.5-10.1) Total Bilirubin 0.3 MG/DL (0.2-1.0) 0.3 MG/DL (0.2-1.0) Aspartate Amino Transf (AST/SGOT) 33 U/L (15-37) 28 U/L (15-37) Alanine Aminotransferase (ALT/SGPT) 23 U/L (12-78) 16 U/L (12-78) Alkaline Phosphatase 138 U/L (46-116) H 113 U/L (46-116) Total Creatine Kinase Pending Creatine Kinase MB 0.7 NG/ML (0.0-3.6) Creatine Kinase MB Relative Index 0.9 Troponin I 0.017 ng/mL (0.000-0.056) Total Protein 8.2 G/DL (6.4-8.2) 7.2 G/DL (6.4-8.2) Albumin 3.0 G/DL (3.4-5.0) L 2.5 G/DL (3.4-5.0) L Globulin 5.2 g/dL 4.7 g/dL Albumin/Globulin Ratio 0.6 (1.0-2.7) L 0.5 (1.0-2.7) L Urine RBC 0-2 /HPF (0 - 2) Urine WBC 2-4 /HPF (0 - 2) Urine Squamous Epithelial Cells Occasional /LPF Urine Bacteria Few /HPF (NONE) Urine Eosinophils None seen (NONE SEEN) Urine Random Sodium 116 mmol/L (20-110) H Urine Potassium Timed 17 mmol/L (12-62) Neutrophils % (Manual) Pending Lymphocytes % (Manual) Pending Platelet Estimate Pending Platelet Morphology Pending Erythrocyte Sedimentation Rate 70 MM/HR (0-30) H Reticulocyte Count 1.1 % (0.5-2.0) Prothrombin Time 11.8 SEC (9.30-11.50) H Prothromb Time International Ratio 1.1 (0.9-1.1) Activated Partial Thromboplast Time 32 SEC (23-33) Phosphorus Level 4.0 MG/DL (2.5-4.9) Magnesium Level 1.8 MG/DL (1.8-2.4) Iron Level 55 ug/dL (50-175) Total Iron Binding Capacity 194 ug/dL (250-450) L Percent Iron Saturation 28 % (15-50) Unsaturated Iron Binding 139 ug/dL (112-346) Lactate Dehydrogenase 185 U/L (81-234) C-Reactive Protein, Quantitative 1.4 mg/dL (0.00-0.90) H Triglycerides Level 44 MG/DL (30-150) Cholesterol Level 99 MG/DL (< 200) LDL Cholesterol 31 mg/dL (<100) HDL Cholesterol 57 MG/DL (40-60) Cholesterol/HDL Ratio 1.7 (3.3-4.4) L Carcinoembryonic Antigen Pending Vitamin B12 Level 293 PG/ML (193-986) Folate 11.6 NG/ML (8.6-58.9) Microbiology Date/Time Source Procedure Growth Status 03/25/20 17:42 Rectum Received Diego Pierce MD March 26, 2020 12:25
--- NOTE | 2020-03-26 13:03 | Consultation ---
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 She is on multiple topical creams. Endorsed she started new cream and it caused worsening of the skin all over her body and Left leg swelling. Denied cough, congestion, fever/chills, nausea, vomiting. Allergies: Coded Allergies: DIAZEPAM (Verified Allergy, Unknown, 10/07/11) HYDROCODONE (Verified Allergy, Unknown, 07/07/10) MINOXIDIL (Verified Allergy, Unknown, 07/07/10) PENICILLINS (Unverified Allergy, Unknown, 12/25/19) NAME ALERT (Verified Adverse Reaction, Unknown, 07/13/08) Medication History Scheduled Allopurinol* (Allopurinol*), 100 MG ORAL DAILY, (Reported) Aspirin* (Aspir-Malissa*), 325 MG ORAL DAILY, (Reported) Bumetanide* (Bumetanide*), 1 MG ORAL BID Calcitriol (Calcitriol), 0.25 MCG PO 3XW, (Reported) Cetirizine Hcl* (Zyrtec*), 10 MG ORAL BEDTIME, (Reported) Dexlansoprazole (Dexilant), 60 MG ORAL DAILY, (Reported) Gabapentin* (Gabapentin*), 400 MG ORAL TID, (Reported) Metoprolol Succinate* (Metoprolol Succinate*), 25 MG ORAL DAILY, (Reported) Rosuvastatin Calcium* (Crestor*), 5 MG ORAL BEDTIME, (Reported) Scheduled PRN Hydroxyzine Hcl (Hydroxyzine Hcl), 25 MG PO Q8HR PRN for Itching, (Reported) Oxycodone Hcl* (Oxycodone Hcl*), 30 MG ORAL Q8H PRN for For Pain, (Reported) Miscellaneous Medications Budesonide/Formoterol Fumarate (Symbicort 160-4.5 Mcg Inhaler), 1 PUFF IH, ( Reported) Patient History Healthcare decision maker N Resuscitation status Advanced Directive on File Patient History Narrative Pmhx: as above SHx: Patient is single and is a resident of [facility]. Patient denies tobacco or alcohol use. Fhx: non contributory Physical Exam Physical Exam Narrative GENERAL: Patient is well-developed, well-nourished obese female, in no apparent distress. HEENT: Eyes, pupils are equal and responsive to light and accommodation. Extraocular movements are intact. NECK: Supple without lymphadenopathy. CHEST: Lungs are clear to auscultation bilaterally without wheezes or rales. CARDIOVASCULAR: Regular rate. S1-S2 are normal without murmurs, rubs, or gallops. ABDOMEN: Soft, nontender, nondistended. Positive bowel sounds. No evidence of hepatosplenomegaly. Currently, no rebound or guarding. EXTREMITIES: Left leg is swollen when compared to the right. There is 2+ pitting edema on the left. Otherwise, without clubbing or cyanosis. Last 24 Hour Vital Signs Date Time Temp Pulse Resp B/P (MAP) Pulse Ox O2 Delivery O2 Flow Rate FiO2 03/26/20 12:00 97.7 76 20 133/65 (87) 94 03/26/20 09:00 Room Air 03/26/20 08:47 82 151/77 03/26/20 08:00 97.7 82 20 151/77 (101) 93 03/26/20 04:14 96.8 78 22 148/73 (98) 95 03/26/20 00:24 98.2 81 22 125/67 (86) 97 03/25/20 21:27 Room Air 03/25/20 20:00 97.2 82 19 151/71 (97) 99 03/25/20 19:09 99.3 76 18 125/62 96 Room Air 03/25/20 18:17 Room Air 03/25/20 17:47 99.3 82 16 123/65 97 Room Air 03/25/20 14:43 99.3 84 18 151/68 99 Room Air 03/25/20 12:45 99.3 80 17 152/63 97 Room Air Intake and Output 03/25/20 03/26/20 19:00 07:00 Output Total 30 ml Balance -30 ml Output Urine Total 30 ml # Voids 2 # Bowel Movements 1 Laboratory Tests Test 03/25/20 12:30 03/25/20 13:15 03/25/20 19:30 03/26/20 06:03 Urine Color Pale yellow Pale yellow Urine Appearance Clear Clear Urine pH 6 (4.5-8.0) 7 (4.5-8.0) Urine Specific [place] 1.015 (1.005-1.035) 1.005 (1.005-1.035) Urine Protein Negative (NEGATIVE) 1+ (NEGATIVE) H Urine Glucose (UA) Negative (NEGATIVE) Negative (NEGATIVE) Urine Ketones Negative (NEGATIVE) Negative (NEGATIVE) Urine Blood Negative (NEGATIVE) 1+ (NEGATIVE) H Urine Nitrite Negative (NEGATIVE) Negative (NEGATIVE) Urine Bilirubin Negative (NEGATIVE) Negative (NEGATIVE) Urine Urobilinogen Normal MG/DL (0.0-1.0) Normal MG/DL (0.0-1.0) Urine Leukocyte Esterase Negative (NEGATIVE) 1+ (NEGATIVE) H White Blood Count 3.8 K/UL (4.8-10.8) L 3.7 K/UL (4.8-10.8) L Red Blood Count 4.05 M/UL (4.20-5.40) L 3.90 M/UL (4.20-5.40) L Hemoglobin 11.9 G/DL (12.0-16.0) L 11.7 G/DL (12.0-16.0) L Hematocrit 37.8 % (37.0-47.0) 36.4 % (37.0-47.0) L Mean Corpuscular Volume 93 FL (80-99) 93 FL (80-99) Mean Corpuscular Hemoglobin 29.4 PG (27.0-31.0) 30.1 PG (27.0-31.0) Mean Corpuscular Hemoglobin Concent 31.5 G/DL (32.0-36.0) L 32.3 G/DL (32.0-36.0) Red Cell Distribution Width 15.5 % (11.6-14.8) H 15.4 % (11.6-14.8) H Platelet Count 161 K/UL (150-450) 151 K/UL (150-450) Mean Platelet Volume 5.4 FL (6.5-10.1) L 4.8 FL (6.5-10.1) L Neutrophils (%) (Auto) 64.1 % (45.0-75.0) 56.4 % (45.0-75.0) Lymphocytes (%) (Auto) 21.3 % (20.0-45.0) 25.7 % (20.0-45.0) Monocytes (%) (Auto) 10.0 % (1.0-10.0) 12.0 % (1.0-10.0) H Eosinophils (%) (Auto) 3.9 % (0.0-3.0) H 4.6 % (0.0-3.0) H Basophils (%) (Auto) 0.7 % (0.0-2.0) 1.3 % (0.0-2.0) Sodium Level 144 MMOL/L (136-145) 144 MMOL/L (136-145) Potassium Level 4.5 MMOL/L (3.5-5.1) 4.2 MMOL/L (3.5-5.1) Chloride Level 108 MMOL/L (98-107) H 112 MMOL/L (98-107) H Carbon Dioxide Level 27 MMOL/L (21-32) 22 MMOL/L (21-32) Anion Gap 9 mmol/L (5-15) 10 mmol/L (5-15) Blood Urea Nitrogen 26 mg/dL (7-18) H 20 mg/dL (7-18) H Creatinine 2.5 MG/DL (0.55-1.30) H 2.1 MG/DL (0.55-1.30) H Estimat Glomerular Filtration Rate 22.2 mL/min (>60) 27.0 mL/min (>60) Glucose Level 88 MG/DL (74-106) 77 MG/DL (74-106) Lactic Acid Level 0.90 mmol/L (0.4-2.0) Uric Acid 6.3 MG/DL (2.6-7.2) Calcium Level 9.2 MG/DL (8.5-10.1) 8.8 MG/DL (8.5-10.1) Total Bilirubin 0.3 MG/DL (0.2-1.0) 0.3 MG/DL (0.2-1.0) Aspartate Amino Transf (AST/SGOT) 33 U/L (15-37) 28 U/L (15-37) Alanine Aminotransferase (ALT/SGPT) 23 U/L (12-78) 16 U/L (12-78) Alkaline Phosphatase 138 U/L (46-116) H 113 U/L (46-116) Total Creatine Kinase Pending Creatine Kinase MB 0.7 NG/ML (0.0-3.6) Creatine Kinase MB Relative Index 0.9 Troponin I 0.017 ng/mL (0.000-0.056) Total Protein 8.2 G/DL (6.4-8.2) 7.2 G/DL (6.4-8.2) Albumin 3.0 G/DL (3.4-5.0) L 2.5 G/DL (3.4-5.0) L Globulin 5.2 g/dL 4.7 g/dL Albumin/Globulin Ratio 0.6 (1.0-2.7) L 0.5 (1.0-2.7) L Urine RBC 0-2 /HPF (0 - 2) Urine WBC 2-4 /HPF (0 - 2) Urine Squamous Epithelial Cells Occasional /LPF Urine Bacteria Few /HPF (NONE) Urine Eosinophils None seen (NONE SEEN) Urine Random Sodium 116 mmol/L (20-110) H Urine Potassium Timed 17 mmol/L (12-62) Neutrophils % (Manual) Pending Lymphocytes % (Manual) Pending Platelet Estimate Pending Platelet Morphology Pending Erythrocyte Sedimentation Rate 70 MM/HR (0-30) H Reticulocyte Count 1.1 % (0.5-2.0) Prothrombin Time 11.8 SEC (9.30-11.50) H Prothromb Time International Ratio 1.1 (0.9-1.1) Activated Partial Thromboplast Time 32 SEC (23-33) Phosphorus Level 4.0 MG/DL (2.5-4.9) Magnesium Level 1.8 MG/DL (1.8-2.4) Iron Level 55 ug/dL (50-175) Total Iron Binding Capacity 194 ug/dL (250-450) L Percent Iron Saturation 28 % (15-50) Unsaturated Iron Binding 139 ug/dL (112-346) Lactate Dehydrogenase 185 U/L (81-234) C-Reactive Protein, Quantitative 1.4 mg/dL (0.00-0.90) H Triglycerides Level 44 MG/DL (30-150) Cholesterol Level 99 MG/DL (< 200) LDL Cholesterol 31 mg/dL (<100) HDL Cholesterol 57 MG/DL (40-60) Cholesterol/HDL Ratio 1.7 (3.3-4.4) L Carcinoembryonic Antigen Pending Vitamin B12 Level 293 PG/ML (193-986) Folate 11.6 NG/ML (8.6-58.9) Microbiology Date/Time Source Procedure Growth Status 03/25/20 17:42 Rectum Received Height (Feet): 5 Height (Inches): 3.00 Weight (Pounds): 239 Medications Current Medications Medications (Trade) Dose Ordered Sig/Liss Route PRN Reason Start Time Stop Time Status Last Admin Dose Admin Acetaminophen (Tylenol) 650 mg Q4H PRN ORAL fever 03/25/20 16:00 04/24/20 15:59 Allopurinol (Zyloprim) 100 mg DAILY ORAL 03/26/20 09:00 04/25/20 08:59 03/26/20 08:46 Aspirin (Ecotrin) 325 mg DAILY ORAL 03/26/20 09:00 05/10/20 08:59 03/26/20 08:46 Dextrose (Dextrose 50%) 25 ml Q30M PRN IV Hypoglycemia 03/25/20 16:00 06/23/20 15:59 Dextrose (Dextrose 50%) 50 ml Q30M PRN IV Hypoglycemia 03/25/20 16:00 06/23/20 15:59 Gabapentin (Neurontin) 400 mg TID ORAL 03/25/20 20:00 04/24/20 19:59 03/26/20 08:46 Heparin Sodium (Porcine) (Heparin 5000 units/ml) 5,000 units EVERY 12 HOURS SUBQ 03/25/20 21:00 05/09/20 20:59 03/25/20 21:13 Hydroxyzine HCl (Atarax) 25 mg EVERY 8 HOURS PRN ORAL Itching 03/25/20 23:45 04/24/20 23:44 03/26/20 10:10 Insulin Aspart (NovoLOG) BEFORE MEALS AND HS SUBQ 03/25/20 16:30 06/23/20 16:29 Metoprolol Succinate (Toprol XL) 25 mg DAILY ORAL 03/26/20 09:00 06/24/20 08:59 03/26/20 08:47 Ondansetron HCl (Zofran) 4 mg Q6H PRN IVP Nausea & Vomiting 03/25/20 16:00 04/24/20 15:59 Oxycodone HCl (Roxicodone) 15 mg Q8H PRN ORAL Severe Pain (Pain Scale 7-10) 03/25/20 19:45 04/01/20 19:44 03/26/20 08:47 Polyethylene Glycol (Miralax) 17 gm HSPRN PRN ORAL Constipation 03/25/20 16:00 04/24/20 15:59 Zolpidem Tartrate (Ambien) 5 mg HSPRN PRN ORAL Insomnia 03/25/20 16:00 04/01/20 15:59 Assessment/Plan Assessment/Plan: Abx: None Assessment: Probable PNA (per CXR findings)- ro COVID 19 -CXR: Subtle perihilar and peripheral-based interstitial opacities. Although findings may be related to fluid overload/CHF, possibility of multifocal pneumonia (including viral pneumonia) is not excluded and correlation with clinical findings is recommended. Follow-up recommended. Afebrile Mild leukopenia -u/a neg L leg swelling-mild cellulitis -V duplex: No DVT chronic dermatitis- flare MORGAN on CKD HTN Asthma Dm2 GERD CVA x3 morbid obesity gout cardiomyopathy s/p cholecystectomy SNF resident ([facility]) Plan: -Start PO Keflex #1/5 for mild cellulitis -f/u cx -Monitor CBC/CMP, temperature -COVID19 testing and isolation -Benadryl and triamcinolone cream from arms and legs Thank you for consulting [facility]. Will continue to follow along with you. Lillian Moss M.D. March 26, 2020 13:03
--- NOTE | 2020-03-26 14:11 | Consultation ---
History of Present Illness General Date patient seen: March 26, 2020 Chief Complaint: Pain Present Illness HPI 82-year-old female with PMHx of hypertension, asthma, diabetes, CVA, chronic kidney disease, custodial resident presented to ER with cc of left leg swelling for several days.. She denies chest pain. Denies fever. Her CXR showed bilateral interstitial infiltrate. She is admitted for possibility of COVID infection and worsening renal function. Allergies: Coded Allergies: DIAZEPAM (Verified Allergy, Unknown, 10/07/11) HYDROCODONE (Verified Allergy, Unknown, 07/07/10) MINOXIDIL (Verified Allergy, Unknown, 07/07/10) PENICILLINS (Unverified Allergy, Unknown, 12/25/19) NAME ALERT (Verified Adverse Reaction, Unknown, 07/13/08) Medication History Scheduled Allopurinol* (Allopurinol*), 100 MG ORAL DAILY, (Reported) Aspirin* (Aspir-Malissa*), 325 MG ORAL DAILY, (Reported) Bumetanide* (Bumetanide*), 1 MG ORAL BID Calcitriol (Calcitriol), 0.25 MCG PO 3XW, (Reported) Cetirizine Hcl* (Zyrtec*), 10 MG ORAL BEDTIME, (Reported) Dexlansoprazole (Dexilant), 60 MG ORAL DAILY, (Reported) Gabapentin* (Gabapentin*), 400 MG ORAL TID, (Reported) Metoprolol Succinate* (Metoprolol Succinate*), 25 MG ORAL DAILY, (Reported) Rosuvastatin Calcium* (Crestor*), 5 MG ORAL BEDTIME, (Reported) Scheduled PRN Hydroxyzine Hcl (Hydroxyzine Hcl), 25 MG PO Q8HR PRN for Itching, (Reported) Oxycodone Hcl* (Oxycodone Hcl*), 30 MG ORAL Q8H PRN for For Pain, (Reported) Miscellaneous Medications Budesonide/Formoterol Fumarate (Symbicort 160-4.5 Mcg Inhaler), 1 PUFF IH, ( Reported) Patient History Healthcare decision maker N Resuscitation status Advanced Directive on File Past Medical/Surgical History Past Medical/Surgical History: (1) Esophageal stricture (2) Gout (3) Asthma (4) HTN (hypertension) (5) CKD (chronic kidney disease) (6) Cerebral vascular disease Review of Systems All Other Systems: negative except mentioned in HPI Physical Exam General Appearance: WD/WN Lines, tubes and drains: peripheral HEENT: normocephalic, atraumatic Neck: non-tender Respiratory/Chest: chest wall non-tender Breasts: no masses Cardiovascular/Chest: normal rate Abdomen: normal bowel sounds, non tender Genitourinary/Rectal: normal genital exam, normal rectal exam Extremities: normal range of motion, non-tender Lymphatic: anterior cervical Last 24 Hour Vital Signs Date Time Temp Pulse Resp B/P (MAP) Pulse Ox O2 Delivery O2 Flow Rate FiO2 03/26/20 12:00 97.7 76 20 133/65 (87) 94 03/26/20 09:00 Room Air 03/26/20 08:47 82 151/77 03/26/20 08:00 97.7 82 20 151/77 (101) 93 03/26/20 04:14 96.8 78 22 148/73 (98) 95 03/26/20 00:24 98.2 81 22 125/67 (86) 97 03/25/20 21:27 Room Air 03/25/20 20:00 97.2 82 19 151/71 (97) 99 03/25/20 19:09 99.3 76 18 125/62 96 Room Air 03/25/20 18:17 Room Air 03/25/20 17:47 99.3 82 16 123/65 97 Room Air 03/25/20 14:43 99.3 84 18 151/68 99 Room Air Intake and Output 03/25/20 03/26/20 19:00 07:00 Output Total 30 ml Balance -30 ml Output Urine Total 30 ml # Voids 2 # Bowel Movements 1 Laboratory Tests Test 03/25/20 19:30 03/26/20 06:03 Urine Color Pale yellow Urine Appearance Clear Urine pH 7 (4.5-8.0) Urine Specific [place] 1.005 (1.005-1.035) Urine Protein 1+ (NEGATIVE) H Urine Glucose (UA) Negative (NEGATIVE) Urine Ketones Negative (NEGATIVE) Urine Blood 1+ (NEGATIVE) H Urine Nitrite Negative (NEGATIVE) Urine Bilirubin Negative (NEGATIVE) Urine Urobilinogen Normal MG/DL (0.0-1.0) Urine Leukocyte Esterase 1+ (NEGATIVE) H Urine RBC 0-2 /HPF (0 - 2) Urine WBC 2-4 /HPF (0 - 2) Urine Squamous Epithelial Cells Occasional /LPF Urine Bacteria Few /HPF (NONE) Urine Eosinophils None seen (NONE SEEN) Urine Random Sodium 116 mmol/L (20-110) H Urine Potassium Timed 17 mmol/L (12-62) White Blood Count 3.7 K/UL (4.8-10.8) L Red Blood Count 3.90 M/UL (4.20-5.40) L Hemoglobin 11.7 G/DL (12.0-16.0) L Hematocrit 36.4 % (37.0-47.0) L Mean Corpuscular Volume 93 FL (80-99) Mean Corpuscular Hemoglobin 30.1 PG (27.0-31.0) Mean Corpuscular Hemoglobin Concent 32.3 G/DL (32.0-36.0) Red Cell Distribution Width 15.4 % (11.6-14.8) H Platelet Count 151 K/UL (150-450) Mean Platelet Volume 4.8 FL (6.5-10.1) L Neutrophils (%) (Auto) 56.4 % (45.0-75.0) Lymphocytes (%) (Auto) 25.7 % (20.0-45.0) Monocytes (%) (Auto) 12.0 % (1.0-10.0) H Eosinophils (%) (Auto) 4.6 % (0.0-3.0) H Basophils (%) (Auto) 1.3 % (0.0-2.0) Neutrophils % (Manual) Pending Lymphocytes % (Manual) Pending Platelet Estimate Pending Platelet Morphology Pending Erythrocyte Sedimentation Rate 70 MM/HR (0-30) H Reticulocyte Count 1.1 % (0.5-2.0) Prothrombin Time 11.8 SEC (9.30-11.50) H Prothromb Time International Ratio 1.1 (0.9-1.1) Activated Partial Thromboplast Time 32 SEC (23-33) Sodium Level 144 MMOL/L (136-145) Potassium Level 4.2 MMOL/L (3.5-5.1) Chloride Level 112 MMOL/L (98-107) H Carbon Dioxide Level 22 MMOL/L (21-32) Anion Gap 10 mmol/L (5-15) Blood Urea Nitrogen 20 mg/dL (7-18) H Creatinine 2.1 MG/DL (0.55-1.30) H Estimat Glomerular Filtration Rate 27.0 mL/min (>60) Glucose Level 77 MG/DL (74-106) Calcium Level 8.8 MG/DL (8.5-10.1) Phosphorus Level 4.0 MG/DL (2.5-4.9) Magnesium Level 1.8 MG/DL (1.8-2.4) Iron Level 55 ug/dL (50-175) Total Iron Binding Capacity 194 ug/dL (250-450) L Percent Iron Saturation 28 % (15-50) Unsaturated Iron Binding 139 ug/dL (112-346) Total Bilirubin 0.3 MG/DL (0.2-1.0) Aspartate Amino Transf (AST/SGOT) 28 U/L (15-37) Alanine Aminotransferase (ALT/SGPT) 16 U/L (12-78) Alkaline Phosphatase 113 U/L (46-116) Lactate Dehydrogenase 185 U/L (81-234) C-Reactive Protein, Quantitative 1.4 mg/dL (0.00-0.90) H Total Protein 7.2 G/DL (6.4-8.2) Albumin 2.5 G/DL (3.4-5.0) L Globulin 4.7 g/dL Albumin/Globulin Ratio 0.5 (1.0-2.7) L Triglycerides Level 44 MG/DL (30-150) Cholesterol Level 99 MG/DL (< 200) LDL Cholesterol 31 mg/dL (<100) HDL Cholesterol 57 MG/DL (40-60) Cholesterol/HDL Ratio 1.7 (3.3-4.4) L Carcinoembryonic Antigen Pending Vitamin B12 Level 293 PG/ML (193-986) Folate 11.6 NG/ML (8.6-58.9) Microbiology Date/Time Source Procedure Growth Status 03/25/20 17:42 Rectum Received Height (Feet): 5 Height (Inches): 3.00 Weight (Pounds): 239 Medications Current Medications Medications (Trade) Dose Ordered Sig/Liss Route PRN Reason Start Time Stop Time Status Last Admin Dose Admin Acetaminophen (Tylenol) 650 mg Q4H PRN ORAL fever 03/25/20 16:00 04/24/20 15:59 Allopurinol (Zyloprim) 100 mg DAILY ORAL 03/26/20 09:00 04/25/20 08:59 03/26/20 08:46 Aspirin (Ecotrin) 325 mg DAILY ORAL 03/26/20 09:00 05/10/20 08:59 03/26/20 08:46 Dextrose (Dextrose 50%) 25 ml Q30M PRN IV Hypoglycemia 03/25/20 16:00 06/23/20 15:59 Dextrose (Dextrose 50%) 50 ml Q30M PRN IV Hypoglycemia 03/25/20 16:00 06/23/20 15:59 Gabapentin (Neurontin) 400 mg TID ORAL 03/25/20 20:00 04/24/20 19:59 03/26/20 13:29 Heparin Sodium (Porcine) (Heparin 5000 units/ml) 5,000 units EVERY 12 HOURS SUBQ 03/25/20 21:00 05/09/20 20:59 03/25/20 21:13 Hydroxyzine HCl (Atarax) 25 mg EVERY 8 HOURS PRN ORAL Itching 03/25/20 23:45 04/24/20 23:44 03/26/20 10:10 Insulin Aspart (NovoLOG) BEFORE MEALS AND HS SUBQ 03/25/20 16:30 06/23/20 16:29 Metoprolol Succinate (Toprol XL) 25 mg DAILY ORAL 03/26/20 09:00 06/24/20 08:59 03/26/20 08:47 Ondansetron HCl (Zofran) 4 mg Q6H PRN IVP Nausea & Vomiting 03/25/20 16:00 04/24/20 15:59 Oxycodone HCl (Roxicodone) 15 mg Q8H PRN ORAL Severe Pain (Pain Scale 7-10) 03/25/20 19:45 04/01/20 19:44 03/26/20 08:47 Polyethylene Glycol (Miralax) 17 gm HSPRN PRN ORAL Constipation 03/25/20 16:00 04/24/20 15:59 Zolpidem Tartrate (Ambien) 5 mg HSPRN PRN ORAL Insomnia 03/25/20 16:00 04/01/20 15:59 Assessment/Plan Problem List: (1) Suspected COVID-19 virus infection ICD Codes: Z20.828 - Contact with and (suspected) exposure to other viral communicable diseases SNOMED: 263859542 (2) Acute on chronic renal insufficiency ICD Codes: N28.9 - Disorder of kidney and ureter, unspecified; N18.9 - Chronic kidney disease, unspecified SNOMED: 716594433, 630526452 (3) Peripheral edema ICD Codes: R60.9 - Edema, unspecified SNOMED: 974970468 (4) Asthma ICD Codes: J45.909 - Asthma SNOMED: 117676267 (5) CKD (chronic kidney disease) ICD Codes: N18.9 - CKD (chronic kidney disease) SNOMED: 826708233 (6) Diabetes mellitus ICD Codes: E11.9 - Diabetes mellitus SNOMED: 75668311 (7) HTN (hypertension) ICD Codes: I10 - HTN (hypertension) SNOMED: 42606526 (8) GERD (gastroesophageal reflux disease) ICD Codes: K21.9 - GERD (gastroesophageal reflux disease) SNOMED: 741942284 (9) Cerebral vascular disease ICD Codes: I67.9 - Cerebrovascular disease, unspecified SNOMED: 90110800 (10) Gout ICD Codes: M10.9 - Gout SNOMED: 58103469 Assessment/Plan: US of leg reviewed, there is no DVT respiratory treatment ID evaluation for COVID renal US check cxr and BNP symptomatic treatment renal US Roberta Durán MD March 26, 2020 14:11
--- NOTE | 2020-03-26 14:43 | Consultation ---
Consult Note Assessment/Plan dictated # [id number] Amor Flores MD March 26, 2020 14:43
[2020-03-26] MEDS ORDERED: DiphenhydrAMINE & Zinc 28g Cream TOPIC PRN (15:30)
[2020-03-26 16:00] VITALS: BP 129/70
--- NOTE | 2020-03-26 16:54 | Internal Med Progress Note ---
Subjective Date of Service: March 26, 2020 Physician Name Aníbal Cuellar Attending Physician Christopher Villanueva MD Current Medications Medications (Trade) Dose Ordered Sig/Liss Route PRN Reason Start Time Stop Time Status Last Admin Dose Admin Acetaminophen (Tylenol) 650 mg Q4H PRN ORAL fever 03/25/20 16:00 04/24/20 15:59 Allopurinol (Zyloprim) 100 mg DAILY ORAL 03/26/20 09:00 04/25/20 08:59 03/26/20 08:46 Aspirin (Ecotrin) 325 mg DAILY ORAL 03/26/20 09:00 05/10/20 08:59 03/26/20 08:46 Cephalexin (Keflex) 250 mg BID ORAL 03/26/20 18:00 04/02/20 17:59 Dextrose (Dextrose 50%) 25 ml Q30M PRN IV Hypoglycemia 03/25/20 16:00 06/23/20 15:59 Dextrose (Dextrose 50%) 50 ml Q30M PRN IV Hypoglycemia 03/25/20 16:00 06/23/20 15:59 Diphenhydramine HCl (Benadryl Cream) 1 applic TID TOPIC 03/26/20 18:00 04/25/20 17:59 Gabapentin (Neurontin) 400 mg TID ORAL 03/25/20 20:00 04/24/20 19:59 03/26/20 13:29 Heparin Sodium (Porcine) (Heparin 5000 units/ml) 5,000 units EVERY 12 HOURS SUBQ 03/25/20 21:00 05/09/20 20:59 03/25/20 21:13 Hydroxyzine HCl (Atarax) 25 mg EVERY 8 HOURS PRN ORAL Itching 03/25/20 23:45 04/24/20 23:44 03/26/20 10:10 Insulin Aspart (NovoLOG) BEFORE MEALS AND HS SUBQ 03/25/20 16:30 06/23/20 16:29 Metoprolol Succinate (Toprol XL) 25 mg DAILY ORAL 03/26/20 09:00 06/24/20 08:59 03/26/20 08:47 Ondansetron HCl (Zofran) 4 mg Q6H PRN IVP Nausea & Vomiting 03/25/20 16:00 04/24/20 15:59 Oxycodone HCl (Roxicodone) 15 mg Q8H PRN ORAL Severe Pain (Pain Scale 7-10) 03/25/20 19:45 04/01/20 19:44 03/26/20 08:47 Polyethylene Glycol (Miralax) 17 gm HSPRN PRN ORAL Constipation 03/25/20 16:00 04/24/20 15:59 Triamcinolone Acetonide (Kenalog) 1 applic THREE TIMES A DAY TOPIC 03/26/20 17:00 06/24/20 16:59 Zolpidem Tartrate (Ambien) 5 mg HSPRN PRN ORAL Insomnia 03/25/20 16:00 04/01/20 15:59 Allergies: Coded Allergies: DIAZEPAM (Verified Allergy, Unknown, 10/07/11) HYDROCODONE (Verified Allergy, Unknown, 07/07/10) MINOXIDIL (Verified Allergy, Unknown, 07/07/10) PENICILLINS (Unverified Allergy, Unknown, 03/26/20) tolerates cephalosporin NAME ALERT (Verified Adverse Reaction, Unknown, 07/13/08) ROS Limited/Unobtainable: Yes Subjective 84 YO F admitted with edema of LLE. Now acute on chronic renal failure. Cover for Int Saúl-Dr Villanueva Objective Last Vital Signs Date Time Temp Pulse Resp B/P (MAP) Pulse Ox O2 Delivery O2 Flow Rate FiO2 03/26/20 12:00 97.7 76 20 133/65 (87) 94 03/26/20 09:00 Room Air Laboratory Tests Test 03/25/20 19:30 03/26/20 06:03 Urine Color Pale yellow Urine Appearance Clear Urine pH 7 (4.5-8.0) Urine Specific [place] 1.005 (1.005-1.035) Urine Protein 1+ (NEGATIVE) H Urine Glucose (UA) Negative (NEGATIVE) Urine Ketones Negative (NEGATIVE) Urine Blood 1+ (NEGATIVE) H Urine Nitrite Negative (NEGATIVE) Urine Bilirubin Negative (NEGATIVE) Urine Urobilinogen Normal MG/DL (0.0-1.0) Urine Leukocyte Esterase 1+ (NEGATIVE) H Urine RBC 0-2 /HPF (0 - 2) Urine WBC 2-4 /HPF (0 - 2) Urine Squamous Epithelial Cells Occasional /LPF Urine Bacteria Few /HPF (NONE) Urine Eosinophils None seen (NONE SEEN) Urine Random Sodium 116 mmol/L (20-110) H Urine Potassium Timed 17 mmol/L (12-62) White Blood Count 3.7 K/UL (4.8-10.8) L Red Blood Count 3.90 M/UL (4.20-5.40) L Hemoglobin 11.7 G/DL (12.0-16.0) L Hematocrit 36.4 % (37.0-47.0) L Mean Corpuscular Volume 93 FL (80-99) Mean Corpuscular Hemoglobin 30.1 PG (27.0-31.0) Mean Corpuscular Hemoglobin Concent 32.3 G/DL (32.0-36.0) Red Cell Distribution Width 15.4 % (11.6-14.8) H Platelet Count 151 K/UL (150-450) Mean Platelet Volume 4.8 FL (6.5-10.1) L Neutrophils (%) (Auto) 56.4 % (45.0-75.0) Lymphocytes (%) (Auto) 25.7 % (20.0-45.0) Monocytes (%) (Auto) 12.0 % (1.0-10.0) H Eosinophils (%) (Auto) 4.6 % (0.0-3.0) H Basophils (%) (Auto) 1.3 % (0.0-2.0) Differential Total Cells Counted 100 Neutrophils % (Manual) 57 % (45-75) Lymphocytes % (Manual) 27 % (20-45) Monocytes % (Manual) 10 % (1-10) Eosinophils % (Manual) 5 % (0-3) H Basophils % (Manual) 1 % (0-2) Band Neutrophils 0 % (0-8) Platelet Estimate Adequate Platelet Morphology Normal Red Blood Cell Morphology Normal Erythrocyte Sedimentation Rate 70 MM/HR (0-30) H Reticulocyte Count 1.1 % (0.5-2.0) Prothrombin Time 11.8 SEC (9.30-11.50) H Prothromb Time International Ratio 1.1 (0.9-1.1) Activated Partial Thromboplast Time 32 SEC (23-33) Sodium Level 144 MMOL/L (136-145) Potassium Level 4.2 MMOL/L (3.5-5.1) Chloride Level 112 MMOL/L (98-107) H Carbon Dioxide Level 22 MMOL/L (21-32) Anion Gap 10 mmol/L (5-15) Blood Urea Nitrogen 20 mg/dL (7-18) H Creatinine 2.1 MG/DL (0.55-1.30) H Estimat Glomerular Filtration Rate 27.0 mL/min (>60) Glucose Level 77 MG/DL (74-106) Calcium Level 8.8 MG/DL (8.5-10.1) Phosphorus Level 4.0 MG/DL (2.5-4.9) Magnesium Level 1.8 MG/DL (1.8-2.4) Iron Level 55 ug/dL (50-175) Total Iron Binding Capacity 194 ug/dL (250-450) L Percent Iron Saturation 28 % (15-50) Unsaturated Iron Binding 139 ug/dL (112-346) Total Bilirubin 0.3 MG/DL (0.2-1.0) Aspartate Amino Transf (AST/SGOT) 28 U/L (15-37) Alanine Aminotransferase (ALT/SGPT) 16 U/L (12-78) Alkaline Phosphatase 113 U/L (46-116) Lactate Dehydrogenase 185 U/L (81-234) C-Reactive Protein, Quantitative 1.4 mg/dL (0.00-0.90) H Total Protein 7.2 G/DL (6.4-8.2) Albumin 2.5 G/DL (3.4-5.0) L Globulin 4.7 g/dL Albumin/Globulin Ratio 0.5 (1.0-2.7) L Triglycerides Level 44 MG/DL (30-150) Cholesterol Level 99 MG/DL (< 200) LDL Cholesterol 31 mg/dL (<100) HDL Cholesterol 57 MG/DL (40-60) Cholesterol/HDL Ratio 1.7 (3.3-4.4) L Carcinoembryonic Antigen Pending Vitamin B12 Level 293 PG/ML (193-986) Folate 11.6 NG/ML (8.6-58.9) Microbiology Date/Time Source Procedure Growth Status 03/25/20 17:42 Rectum Received Intake and Output 03/25/20 03/26/20 19:00 07:00 Output Total 30 ml Balance -30 ml Output Urine Total 30 ml # Voids 2 # Bowel Movements 1 Objective PHYSICAL EXAMINATION: GENERAL: Patient is well-developed, well-nourished obese female, in no apparent distress. HEENT: Eyes, pupils are equal and responsive to light and accommodation. Extraocular movements are intact. NECK: Supple without lymphadenopathy. CHEST: Lungs are clear to auscultation bilaterally without wheezes or rales. CARDIOVASCULAR: Regular rate. S1-S2 are normal without murmurs, rubs, or gallops. ABDOMEN: Soft, nontender, nondistended. Positive bowel sounds. No evidence of hepatosplenomegaly. Currently, no rebound or guarding. EXTREMITIES: Left leg is swollen when compared to the right. There is 2+ pitting edema on the left. Otherwise, without clubbing or cyanosis. RECTAL/GENITAL: Not performed. NEUROLOGIC: Cranial nerves II through XII are grossly intact without focal deficits. Motor strength is 5/5 bilaterally. Deep tendon reflexes are 2+ plantar. Assessment/Plan Assessment/Plan ASSESSMENT: This is an 84-year-old female. 1. Left lower extremity edema. 2. Acute on chronic renal failure. 3. Congestive heart failure. 4. Gastroesophageal reflux disease. 5. Diabetes type 2. 6. Anemia. 7. Hypertension. 8. Cerebrovascular disease. 9. Diabetes. 10. Gout. 11. Cardiomyopathy. TREATMENT: 1. Left lower extremity edema. A venous duplex Doppler=neg DVT. ABX=keflex 2. Acute on chronic renal failure. A Nephrology consultation has been obtained with Dr. Rafael Castillo. 3. Congestive heart failure. Cardiology consultation has been obtained with Dr. Pierce. 4. Gastroesophageal reflux disease. Continue Protonix as above. 5. Diabetes type 2. A NovoLog sliding scale has been instituted. 6. Anemia. 7. Hypertension. Continue metoprolol as above. 8. Cerebrovascular disease. 9. Obesity. 10. Gout. Continue allopurinol as above. 11. History of cardiomyopathy Aníbal Cuellar MD March 26, 2020 16:54
[2020-03-26] MEDS ORDERED: Triamcinolone 0.1% 15gm Cr TOPIC SCH (17:00)
[2020-03-26] MEDS: Triamcinolone 0.1% 15gm Cr TOPIC SCH ×2 (17:00→18:00)
[2020-03-26] MEDS: DiphenhydrAMINE & Zinc 28g Cream TOPIC SCH (18:00)
[2020-03-26] MEDS: Cephalexin 250mg Cap ORAL SCH (18:34)
[2020-03-26 20:25] VITALS: BP 119/64
--- NOTE | 2020-03-26 21:14 | Consultation ---
DATE OF CONSULTATION: 03/26/2020 CARDIOLOGY CONSULTATION CONSULTING PHYSICIAN: Diego Pierce MD. REFERRING PHYSICIAN: Christopher Villanueva MD; Aníbal Cuellar MD; Roberta Durán MD. REASON FOR REFERRAL: Possible heart failure. HISTORY OF PRESENT ILLNESS: This is an 84-year-old female, who is known to me from prior evaluation although I have not seen her in the past 2 years. She is a resident of convalescent facility and apparently has some chronic leg pains and leg edema. She was getting some gabapentin, but the facility stopped given it to her about 1 week ago and she finally decided that she is having too much pain and swelling, so she decided to come to the emergency room, although he tells me she initially did not want to because of the COVID infection. Nevertheless, she is now here in the hospital. She is feeling better today than she did yesterday at the time of her admission. She absolutely denies any chest pain. Denies any shortness of breath. She is able to walk around the facility with the help of a walker. She walks to the [place] and her activity is not limited because of either chest pain, pressure or tightness or heaviness in her chest, or shortness of breath. There is no PND. She uses one pillow. There is no dizziness or lightheadedness on standing. She has not had any heart pounding or palpitation for the past 4 or 5 years. PAST MEDICAL HISTORY: Positive for history of diastolic heart failure, history of hypertension, hyperlipidemia, lower extremity edema, chronic kidney disease. She has also history of gout, diabetes mellitus, H. pylori gastritis, asthma, esophageal issue. She has had some dilatation of the esophagus previously. History of peripheral edema, history of syncope, weight loss, bradycardia related to medications. In 2012, perfusion testing was negative. ALLERGIES: She is allergic to multiple medications including Valium, hydrocodone, minoxidil, and penicillin. SOCIAL HISTORY: She never smoked. No alcohol. No drugs. She used to work for [employer] at some point. At the present time, [facility] REVIEW OF SYSTEMS: GASTROINTESTINAL: She has had some constipation that apparently resolved today. No black or bloody poop. GENITOURINARY: She denies. One nocturic episode. CONSTITUTIONAL: No fevers, chills, or night sweats. NEUROLOGICAL: Negative. PULMONARY: She does have a history of cough and some wheezing that she indicates has been going on for several months and the cough is not worse now than it has been on prior occasions. PHYSICAL EXAMINATION: Deferred due to status for some other investigation for COVID; however, the emergency room physician's data was reviewed for physical examination. Also, Dr. Cuellar's examination was reviewed for his evaluation. The lungs were felt to be clear to auscultation without any wheezes or rales. Cardiac exam showed regular rate and rhythm. No rubs or gallops were noted. Her neck was without any jugular venous distention. Generally, she was not to be in any respiratory distress. Abdomen was soft, nontender. Positive bowel sounds and the left leg is swollen when compared to the right, 2+ edema of the left, otherwise without any clubbing or cyanosis, felt to be present by Dr. Cuellar. LABORATORY AND DIAGNOSTIC DATA: Her laboratory values, her white count is 3.7, hemoglobin 11.7, and platelet count of 151,000. Her sodium is 144, potassium 4.2, chloride 112, bicarb 22, BUN of 20, creatinine 2.1, and glucose of 77. Uric acid 6.3. Calcium is 8.8, and her magnesium was 1.8. Iron of 55, 28% saturation, and her alkaline phosphatase was 113. LDH of 185. Total CK is pending. Troponin 0.017. CRP of 1.4. Her total protein was 7.2 with albumin of 2.5. Phosphorus level was 1.7 and vitamin B12 of 293. Folic acid of 11.6. Her proBNP at this time was not checked during this hospitalization and all her imaging, venous duplex of the lower extremity did not show any deep venous thrombosis of any acute degree. There was some small suprapatellar effusion and a chest x-ray was interpreted by the radiologist as subtle perihilar and peripheral vascular interstitial opacities, maybe related to fluid overload, possibly multifocal pneumonia including viral pneumonia is not excluded, but she really does not have any symptoms of acute in nature. Her electrocardiogram shows normal sinus rhythm, normal QRS axis, really no significant ST or T-wave abnormalities. ASSESSMENT AND PLAN: 1. Leg edema, chronic in nature. 2. Leg pain, reactive to discontinuation of gabapentin. 3. Hypertension history. 4. Diabetes mellitus. 5. History of diastolic heart failure. 6. Gout. Dr. Villanueva and Dr. Cuellar, this patient was seen in cardiac consultation. The patient denies any signs or symptoms that would be suggestive of acute coronary syndrome nor congestive heart failure. Her creatinine is up at this time. She usually gets some diuretics at the facility, which she is not getting at this time, Bumex and she is taking 1 mg twice daily. She may need to be back on that, but in light of the fact that she has worsening of her renal function, it may be prudent to hold the diuretic for the time being as the patient is being followed by Nephrology. Once okay with Nephrology, we will resume that medication. She is on some beta-carter. She is not tachycardic and with the degree of renal insufficiency, I wanted to itself should be increased as well. She will be monitored for the time being. Her COVID status is pending. A swab has been sent last night and the results of which are pending. She will have an echocardiogram once her COVID infection is excluded. I did personally discuss with the patient over the phone about all of these findings. Her edema she thinks is better, but again because of renal insufficiency, it may be worthwhile to hold her diuretics at least for a day or two until Nephrology evaluation is completed and it is okay by Renal that she can resume her diuretics. Diego Pierce M.D. DR: Kareen JOB#: [id number] CC:
--- NOTE | 2020-03-26 22:44 | Consultation ---
DATE OF CONSULTATION: 03/26/2020 NEPHROLOGY CONSULTATION CONSULTING PHYSICIAN: Amor Flores MD. REFERRING PHYSICIAN: Christopher Villanueva MD. REASON FOR CONSULTATION: Chronic kidney disease. HISTORY OF PRESENT ILLNESS: This is an 84-year-old female who is known to me from long-term followup in my office throughout the years as well as multiple admissions in the hospital. Patient has history of CKD. Her serum creatinine at baseline is in the low 2s. She was admitted with a creatinine of 2.5. She was on Demadex 1 mg b.i.d. It has not been continued here and the serum creatinine is down to 2.1. Patient herself states that she has been itching a lot. PAST MEDICAL HISTORY: Patient has history of gastroesophageal reflux, diabetes mellitus, anemia, hypertension. She had morbid obesity, but she states that she has been losing a lot of weight because of poor p.o. intake and poor appetite. Patient has history of CVA, gout, CHF. MEDICATIONS: Reviewed in the EMR. SOCIAL HISTORY: No smoking or alcohol abuse. Patient lives in a longterm facility. ALLERGIES: Reported to hydrocodone, minoxidil, penicillin, diazepam. REVIEW OF SYSTEMS: As above. PHYSICAL EXAMINATION: GENERAL: Patient is an elderly female, in no acute distress. VITAL SIGNS: Blood pressure is 132/65, pulse 60, respiratory rate 20, temperature 97.7. HEENT: [place] conjunctivae. Anicteric sclerae. NECK: Supple. LUNGS: Clear to auscultation. HEART: S1, S2 without murmurs or rubs. ABDOMEN: Soft, nontender. EXTREMITIES: Bilateral pedal edema. LABORATORY FINDINGS: CBC shows a WBC of 3700, hematocrit 36.4, hemoglobin is 11.7, platelets 151,000. Chemistry panel shows serum sodium 144, potassium 4.5, chloride 108, CO2 of 27, BUN is 26, creatinine 2.5. UA shows 1+ protein. ASSESSMENT: This is an 84-year-old female with history of CKD who was admitted with acute on chronic renal failure. Patient is being ruled out for COVID-19. She has some dry cough and notes she has lost weight and she has itching. Her itching could be potentially related to her chronic kidney disease although she could have also an allergic reaction. PLAN: I would hold the diuretics at this point. Serum PTH, vitamin D, and phosphorus will be ordered to rule out secondary hyperparathyroidism as well as vitamin D deficiency. Also make sure that patient is not hyperphosphatemic. The chemistry panel will be followed and further recommendations will be given. Thank you very much, Dr. Villanueva, for this consultation. Amor Flores M.D. DR: IVA JOB#: [id number] CC: RUFUS
[2020-03-27 00:06] VITALS: BP 143/75
[2020-03-27 04:14] VITALS: BP 145/76
[2020-03-27] MEDS: NovoLOG Insulin Flexpen SUBQ SCH ×4 (06:03→21:00)
[2020-03-27 07:45] LABS: ANION GAP 8 mmol/L (5-15); BLOOD UREA NITROGEN 19 mg/dL (7-18); CALCIUM 8.5 MG/DL (8.5-10.1); CARBON DIOXIDE 23 MMOL/L (21-32); CHLORIDE 113 MMOL/L (98-107); PHOSPHORUS 3.8 MG/DL (2.5-4.9); POTASSIUM 4.6 MMOL/L (3.5-5.1); SODIUM 144 MMOL/L (136-145)
[2020-03-27 08:00] VITALS: BP 110/67
[2020-03-27] MEDS: Aspirin EC 325mg tab ORAL SCH (08:33)
[2020-03-27] MEDS: Cephalexin 250mg Cap ORAL SCH ×2 (08:34→21:51)
[2020-03-27] MEDS: Heparin 5000 units/ml inj SUBQ SCH ×2 (08:34→21:00)
[2020-03-27] MEDS: Allopurinol 100mg Tab ORAL SCH (08:34)
[2020-03-27] MEDS: Metoprolol Succinate XL 25mg tab ORAL SCH (08:35)
[2020-03-27] MEDS: DiphenhydrAMINE & Zinc 28g Cream TOPIC SCH ×3 (08:37→18:16)
[2020-03-27] MEDS: Triamcinolone 0.1% 15gm Cr TOPIC SCH ×3 (08:37→18:17)
--- NOTE | 2020-03-27 11:10 | Internal Med Progress Note ---
Subjective Date of Service: March 27, 2020 Physician Name Aníbal Cuellar Attending Physician Christopher Villanueva MD Current Medications Medications (Trade) Dose Ordered Sig/Liss Route PRN Reason Start Time Stop Time Status Last Admin Dose Admin Acetaminophen (Tylenol) 650 mg Q4H PRN ORAL fever 03/25/20 16:00 04/24/20 15:59 Allopurinol (Zyloprim) 100 mg DAILY ORAL 03/26/20 09:00 04/25/20 08:59 03/27/20 08:34 Aspirin (Ecotrin) 325 mg DAILY ORAL 03/26/20 09:00 05/10/20 08:59 03/27/20 08:33 Cephalexin (Keflex) 250 mg BID ORAL 03/26/20 18:00 04/02/20 17:59 03/27/20 08:34 Dextrose (Dextrose 50%) 25 ml Q30M PRN IV Hypoglycemia 03/25/20 16:00 06/23/20 15:59 Dextrose (Dextrose 50%) 50 ml Q30M PRN IV Hypoglycemia 03/25/20 16:00 06/23/20 15:59 Diphenhydramine HCl (Benadryl Cream) 1 applic TID TOPIC 03/26/20 18:00 04/25/20 17:59 03/27/20 08:37 Gabapentin (Neurontin) 400 mg TID ORAL 03/25/20 20:00 04/24/20 19:59 03/27/20 08:33 Heparin Sodium (Porcine) (Heparin 5000 units/ml) 5,000 units EVERY 12 HOURS SUBQ 03/25/20 21:00 05/09/20 20:59 03/26/20 21:12 Hydroxyzine HCl (Atarax) 25 mg EVERY 8 HOURS PRN ORAL Itching 03/25/20 23:45 04/24/20 23:44 03/26/20 10:10 Insulin Aspart (NovoLOG) BEFORE MEALS AND HS SUBQ 03/25/20 16:30 06/23/20 16:29 Metoprolol Succinate (Toprol XL) 25 mg DAILY ORAL 03/26/20 09:00 06/24/20 08:59 03/26/20 08:47 Ondansetron HCl (Zofran) 4 mg Q6H PRN IVP Nausea & Vomiting 03/25/20 16:00 04/24/20 15:59 Oxycodone HCl (Roxicodone) 15 mg Q8H PRN ORAL Severe Pain (Pain Scale 7-10) 03/25/20 19:45 04/01/20 19:44 03/26/20 08:47 Polyethylene Glycol (Miralax) 17 gm HSPRN PRN ORAL Constipation 03/25/20 16:00 04/24/20 15:59 Triamcinolone Acetonide (Kenalog) 1 applic THREE TIMES A DAY TOPIC 03/26/20 17:00 06/24/20 16:59 03/27/20 08:37 Zolpidem Tartrate (Ambien) 5 mg HSPRN PRN ORAL Insomnia 03/25/20 16:00 04/01/20 15:59 Allergies: Coded Allergies: DIAZEPAM (Verified Allergy, Unknown, 10/07/11) HYDROCODONE (Verified Allergy, Unknown, 07/07/10) MINOXIDIL (Verified Allergy, Unknown, 07/07/10) PENICILLINS (Unverified Allergy, Unknown, 03/26/20) tolerates cephalosporin NAME ALERT (Verified Adverse Reaction, Unknown, 07/13/08) ROS Limited/Unobtainable: No Constitutional: Reports: no symptoms HEENT: Reports: no symptoms Cardiovascular: Reports: no symptoms Respiratory: Reports: no symptoms Gastrointestinal/Abdominal: Reports: no symptoms Genitourinary: Reports: no symptoms Neurologic/Psychiatric: Reports: no symptoms Subjective 84 YO F admitted with edema of LLE. Now acute on chronic renal failure. Cover for Int Saúl-Dr Villanueva Objective Last Vital Signs Date Time Temp Pulse Resp B/P (MAP) Pulse Ox O2 Delivery O2 Flow Rate FiO2 03/27/20 09:00 Room Air 03/27/20 08:35 86 110/67 03/27/20 08:00 96.4 19 94 Laboratory Tests Test 03/27/20 05:30 Sodium Level 144 MMOL/L (136-145) Potassium Level 4.6 MMOL/L (3.5-5.1) Chloride Level 113 MMOL/L (98-107) H Carbon Dioxide Level 23 MMOL/L (21-32) Anion Gap 8 mmol/L (5-15) Blood Urea Nitrogen 19 mg/dL (7-18) H Creatinine 2.0 MG/DL (0.55-1.30) H Estimat Glomerular Filtration Rate 28.6 mL/min (>60) Glucose Level 73 MG/DL (74-106) L Calcium Level 8.5 MG/DL (8.5-10.1) Calcium (Send out) Pending Phosphorus Level 3.8 MG/DL (2.5-4.9) Vitamin D 25-Hydroxy Pending 25-Hydroxy Vitamin D2 Pending 25-Hydroxy Vitamin D3 Pending Parathyroid Hormone (Intact) Pending Microbiology Date/Time Source Procedure Growth Status 03/25/20 13:30 Blood Blood Culture - Preliminary NO GROWTH AFTER 24 HOURS Resulted 03/25/20 13:15 Blood Blood Culture - Preliminary NO GROWTH AFTER 24 HOURS Resulted 03/25/20 17:42 Nasal Nares MRSA Culture - Final NO METHICILLIN RESISTANT STAPH AUREUS... Complete 03/25/20 12:30 Nasopharynx Coronavirus COVID-19 PCR ([facility]) - Final Complete 03/25/20 17:42 Rectum - Final NO CARBAPENEM-RESISTANT ENTEROBACTERI... Complete 03/25/20 17:42 Rectum VRE Culture - Final NO VANCOMYCIN RESISTANT ENTEROCOCCUS ... Complete Intake and Output 03/26/20 03/27/20 19:00 07:00 Intake Total 480 ml 360 ml Balance 480 ml 360 ml Intake Oral 480 ml Other 360 ml # Voids 3 3 # Bowel Movements 1 Objective PHYSICAL EXAMINATION: GENERAL: Patient is well-developed, well-nourished obese female, in no apparent distress. HEENT: Eyes, pupils are equal and responsive to light and accommodation. Extraocular movements are intact. NECK: Supple without lymphadenopathy. CHEST: Lungs are clear to auscultation bilaterally without wheezes or rales. CARDIOVASCULAR: Regular rate. S1-S2 are normal without murmurs, rubs, or gallops. ABDOMEN: Soft, nontender, nondistended. Positive bowel sounds. No evidence of hepatosplenomegaly. Currently, no rebound or guarding. EXTREMITIES: Left leg is swollen when compared to the right. There is 2+ pitting edema on the left. Otherwise, without clubbing or cyanosis. RECTAL/GENITAL: Not performed. NEUROLOGIC: Cranial nerves II through XII are grossly intact without focal deficits. Motor strength is 5/5 bilaterally. Deep tendon reflexes are 2+ plantar. Assessment/Plan Assessment/Plan ASSESSMENT: This is an 84-year-old female. 1. Left lower extremity edema. 2. Acute on chronic renal failure. 3. Congestive heart failure. 4. Gastroesophageal reflux disease. 5. Diabetes type 2. 6. Anemia. 7. Hypertension. 8. Cerebrovascular disease. 9. Diabetes. 10. Gout. 11. Cardiomyopathy. TREATMENT: 1. Left lower extremity edema. A venous duplex Doppler=neg DVT. ABX=keflex 2. Acute on chronic renal failure. A Nephrology consultation has been obtained with Dr. Rafael Castillo. 3. Congestive heart failure. Cardiology consultation has been obtained with Dr. Pierce. 4. Gastroesophageal reflux disease. Continue Protonix as above. 5. Diabetes type 2. A NovoLog sliding scale has been instituted. 6. Anemia. 7. Hypertension. Continue metoprolol as above. 8. Cerebrovascular disease. 9. Obesity. 10. Gout. Continue allopurinol as above. 11. History of cardiomyopathy Aníbal Cuellar MD March 27, 2020 11:10
[2020-03-27 12:00] VITALS: BP 152/76
--- NOTE | 2020-03-27 12:34 | Pulmonology Progress Note ---
Subjective ROS Limited/Unobtainable: No Allergies: Coded Allergies: DIAZEPAM (Verified Allergy, Unknown, 10/07/11) HYDROCODONE (Verified Allergy, Unknown, 07/07/10) MINOXIDIL (Verified Allergy, Unknown, 07/07/10) PENICILLINS (Unverified Allergy, Unknown, 03/26/20) tolerates cephalosporin NAME ALERT (Verified Adverse Reaction, Unknown, 07/13/08) Objective Last 24 Hour Vital Signs Date Time Temp Pulse Resp B/P (MAP) Pulse Ox O2 Delivery O2 Flow Rate FiO2 03/27/20 09:00 Room Air 03/27/20 08:35 86 110/67 03/27/20 08:00 96.4 86 19 110/67 (81) 94 03/27/20 04:14 97.7 80 24 145/76 (99) 95 03/27/20 00:06 97.5 76 22 143/75 (97) 93 03/26/20 20:25 97.2 67 20 119/64 (82) 90 03/26/20 20:09 Room Air 03/26/20 16:00 97.5 79 20 129/70 (89) 95 Intake and Output 03/26/20 03/27/20 19:00 07:00 Intake Total 480 ml 360 ml Balance 480 ml 360 ml Intake Oral 480 ml Other 360 ml # Voids 3 3 # Bowel Movements 1 General Appearance: WD/WN HEENT: normocephalic, atraumatic Respiratory: chest wall non-tender, lungs clear Cardiovascular: normal peripheral pulses, normal rate Abdomen: normal bowel sounds, no organomegaly Genitourinary: normal external genitalia Skin: no rash, no ulcers Lymphatic: no neck adenopathy Microbiology Date/Time Source Procedure Growth Status 03/25/20 13:30 Blood Blood Culture - Preliminary NO GROWTH AFTER 24 HOURS Resulted 03/25/20 13:15 Blood Blood Culture - Preliminary NO GROWTH AFTER 24 HOURS Resulted 03/25/20 17:42 Nasal Nares MRSA Culture - Final NO METHICILLIN RESISTANT STAPH AUREUS... Complete 03/25/20 12:30 Nasopharynx Coronavirus COVID-19 PCR ([facility]) - Final Complete 03/25/20 17:42 Rectum - Final NO CARBAPENEM-RESISTANT ENTEROBACTERI... Complete 03/25/20 17:42 Rectum VRE Culture - Final NO VANCOMYCIN RESISTANT ENTEROCOCCUS ... Complete Laboratory Tests 03/27/20 05:30: Sodium Level 144, Potassium Level 4.6, Chloride Level 113H, Carbon Dioxide Level 23, Anion Gap 8, Blood Urea Nitrogen 19H, Creatinine 2.0H, Estimat Glomerular Filtration Rate 28.6, Glucose Level 73L, Calcium Level 8.5, Calcium ( Send out) [Pending], Phosphorus Level 3.8, Vitamin D 25-Hydroxy [Pending], 25- Hydroxy Vitamin D2 [Pending], 25-Hydroxy Vitamin D3 [Pending], Parathyroid Hormone (Intact) [Pending] Current Medications Medications (Trade) Dose Ordered Sig/Liss Route PRN Reason Start Time Stop Time Status Last Admin Dose Admin Acetaminophen (Tylenol) 650 mg Q4H PRN ORAL fever 03/25/20 16:00 04/24/20 15:59 Allopurinol (Zyloprim) 100 mg DAILY ORAL 03/26/20 09:00 04/25/20 08:59 03/27/20 08:34 Aspirin (Ecotrin) 325 mg DAILY ORAL 03/26/20 09:00 05/10/20 08:59 03/27/20 08:33 Cephalexin (Keflex) 250 mg BID ORAL 03/26/20 18:00 04/02/20 17:59 03/27/20 08:34 Dextrose (Dextrose 50%) 25 ml Q30M PRN IV Hypoglycemia 03/25/20 16:00 06/23/20 15:59 Dextrose (Dextrose 50%) 50 ml Q30M PRN IV Hypoglycemia 03/25/20 16:00 06/23/20 15:59 Diphenhydramine HCl (Benadryl Cream) 1 applic TID TOPIC 03/26/20 18:00 04/25/20 17:59 03/27/20 12:23 Gabapentin (Neurontin) 400 mg TID ORAL 03/25/20 20:00 04/24/20 19:59 03/27/20 12:23 Heparin Sodium (Porcine) (Heparin 5000 units/ml) 5,000 units EVERY 12 HOURS SUBQ 03/25/20 21:00 05/09/20 20:59 03/26/20 21:12 Hydroxyzine HCl (Atarax) 25 mg EVERY 8 HOURS PRN ORAL Itching 03/25/20 23:45 04/24/20 23:44 03/26/20 10:10 Insulin Aspart (NovoLOG) BEFORE MEALS AND HS SUBQ 03/25/20 16:30 06/23/20 16:29 Metoprolol Succinate (Toprol XL) 25 mg DAILY ORAL 03/26/20 09:00 06/24/20 08:59 03/26/20 08:47 Ondansetron HCl (Zofran) 4 mg Q6H PRN IVP Nausea & Vomiting 03/25/20 16:00 04/24/20 15:59 Oxycodone HCl (Roxicodone) 15 mg Q8H PRN ORAL Severe Pain (Pain Scale 7-10) 03/25/20 19:45 04/01/20 19:44 03/26/20 08:47 Polyethylene Glycol (Miralax) 17 gm HSPRN PRN ORAL Constipation 03/25/20 16:00 04/24/20 15:59 Triamcinolone Acetonide (Kenalog) 1 applic THREE TIMES A DAY TOPIC 03/26/20 17:00 06/24/20 16:59 03/27/20 12:23 Zolpidem Tartrate (Ambien) 5 mg HSPRN PRN ORAL Insomnia 03/25/20 16:00 04/01/20 15:59 Assessment/Plan Problems: (1) Suspected COVID-19 virus infection (2) Acute on chronic renal insufficiency (3) Peripheral edema (4) Asthma (5) CKD (chronic kidney disease) (6) Diabetes mellitus (7) HTN (hypertension) (8) GERD (gastroesophageal reflux disease) (9) Cerebral vascular disease (10) Gout Assessment/Plan all reviewed f/u electrolytes cultures pending respiratory treatment titrate fio2 to sat of o2% f/u renal studies all reviewed Roberta Durán MD March 27, 2020 12:34
--- NOTE | 2020-03-27 13:21 | General Progress Note ---
Assessment/Plan Problem List: (1) Acute on chronic renal insufficiency ICD Codes: N28.9 - Disorder of kidney and ureter, unspecified; N18.9 - Chronic kidney disease, unspecified SNOMED: 600172018, 106479811 (2) Gout ICD Codes: M10.9 - Gout SNOMED: 60240682 (3) HTN (hypertension) ICD Codes: I10 - HTN (hypertension) SNOMED: 05953959 (4) Diabetes mellitus ICD Codes: E11.9 - Diabetes mellitus SNOMED: 44521542 (5) Gastric cancer ICD Codes: C16.9 - Gastric cancer SNOMED: 403338504 (6) Anemia ICD Codes: D64.9 - Anemia SNOMED: 185335878 (7) Suspected COVID-19 virus infection ICD Codes: Z20.828 - Contact with and (suspected) exposure to other viral communicable diseases SNOMED: 088154507 (8) Peripheral edema ICD Codes: R60.9 - Edema, unspecified SNOMED: 777671064 Assessment/Plan: Hold diuretics follow BMP await PTH, Vit D Subjective Allergies: Coded Allergies: DIAZEPAM (Verified Allergy, Unknown, 10/07/11) HYDROCODONE (Verified Allergy, Unknown, 07/07/10) MINOXIDIL (Verified Allergy, Unknown, 07/07/10) PENICILLINS (Unverified Allergy, Unknown, 03/26/20) tolerates cephalosporin NAME ALERT (Verified Adverse Reaction, Unknown, 07/13/08) Subjective feels ok Objective Last 24 Hour Vital Signs Date Time Temp Pulse Resp B/P (MAP) Pulse Ox O2 Delivery O2 Flow Rate FiO2 03/27/20 12:00 97.3 72 18 152/76 (101) 97 03/27/20 09:00 Room Air 03/27/20 08:35 86 110/67 03/27/20 08:00 96.4 86 19 110/67 (81) 94 03/27/20 04:14 97.7 80 24 145/76 (99) 95 03/27/20 00:06 97.5 76 22 143/75 (97) 93 03/26/20 20:25 97.2 67 20 119/64 (82) 90 03/26/20 20:09 Room Air 03/26/20 16:00 97.5 79 20 129/70 (89) 95 Intake and Output 03/26/20 03/27/20 19:00 07:00 Intake Total 480 ml 360 ml Balance 480 ml 360 ml Intake Oral 480 ml Other 360 ml # Voids 3 3 # Bowel Movements 1 Laboratory Tests 03/27/20 05:30: Sodium Level 144, Potassium Level 4.6, Chloride Level 113H, Carbon Dioxide Level 23, Anion Gap 8, Blood Urea Nitrogen 19H, Creatinine 2.0H, Estimat Glomerular Filtration Rate 28.6, Glucose Level 73L, Calcium Level 8.5, Calcium ( Send out) [Pending], Phosphorus Level 3.8, Vitamin D 25-Hydroxy [Pending], 25- Hydroxy Vitamin D2 [Pending], 25-Hydroxy Vitamin D3 [Pending], Parathyroid Hormone (Intact) [Pending] Height (Feet): 5 Height (Inches): 3.00 Weight (Pounds): 234 Cardiovascular: normal rate Respiratory/Chest: lungs clear Edema: 2+ Generalized Amor Flores MD March 27, 2020 13:21
--- NOTE | 2020-03-27 13:29 | Infectious Diseases Prog Note ---
Assessment/Plan Assessment/Plan Assessment: Probable PNA (per CXR findings)- COVID neg x1 -03/25 CXR: Subtle perihilar and peripheral-based interstitial opacities. Although findings may be related to fluid overload/CHF, possibility of multifocal pneumonia (including viral pneumonia) is not excluded and correlation with clinical findings is recommended. Follow-up recommended. -03/25 SARS COV2 PCR neg Afebrile Mild leukopenia -u/a neg -Bcx NTD L leg swelling-mild cellulitis -V duplex: No DVT chronic dermatitis- flare MORGAN on CKD; improving HTN Asthma Dm2 GERD CVA x3 morbid obesity gout cardiomyopathy s/p cholecystectomy SNF resident ([facility]) Plan: -Continue PO Keflex #2/5 for mild cellulitis -f/u cx -Monitor CBC/CMP, temperature -Continue COVID19 isolation for now pending Repeat CXR -Benadryl and triamcinolone cream from arms and legs Thank you for consulting [facility]. Will continue to follow along with you. Subjective Allergies: Coded Allergies: DIAZEPAM (Verified Allergy, Unknown, 10/07/11) HYDROCODONE (Verified Allergy, Unknown, 07/07/10) MINOXIDIL (Verified Allergy, Unknown, 07/07/10) PENICILLINS (Unverified Allergy, Unknown, 03/26/20) tolerates cephalosporin NAME ALERT (Verified Adverse Reaction, Unknown, 07/13/08) Subjective afebrile at RA COVID neg x1 Bcx NTD Objective Vital Signs Last 24 Hour Vital Signs Date Time Temp Pulse Resp B/P (MAP) Pulse Ox O2 Delivery O2 Flow Rate FiO2 03/27/20 12:00 97.3 72 18 152/76 (101) 97 03/27/20 09:00 Room Air 03/27/20 08:35 86 110/67 03/27/20 08:00 96.4 86 19 110/67 (81) 94 03/27/20 04:14 97.7 80 24 145/76 (99) 95 03/27/20 00:06 97.5 76 22 143/75 (97) 93 03/26/20 20:25 97.2 67 20 119/64 (82) 90 03/26/20 20:09 Room Air 03/26/20 16:00 97.5 79 20 129/70 (89) 95 Height (Feet): 5 Height (Inches): 3.00 Weight (Pounds): 234 Objective Gen: no respiratory distress Head: normocephalic Lungs: no tachypnea or use of accessory resp muscles Abd: not distended Microbiology Date/Time Source Procedure Growth Status 03/25/20 13:30 Blood Blood Culture - Preliminary NO GROWTH AFTER 24 HOURS Resulted 03/25/20 13:15 Blood Blood Culture - Preliminary NO GROWTH AFTER 24 HOURS Resulted 03/25/20 17:42 Nasal Nares MRSA Culture - Final NO METHICILLIN RESISTANT STAPH AUREUS... Complete 03/25/20 12:30 Nasopharynx Coronavirus COVID-19 PCR ([facility]) - Final Complete 03/25/20 17:42 Rectum - Final NO CARBAPENEM-RESISTANT ENTEROBACTERI... Complete 03/25/20 17:42 Rectum VRE Culture - Final NO VANCOMYCIN RESISTANT ENTEROCOCCUS ... Complete Laboratory Tests Test 03/27/20 05:30 Sodium Level 144 MMOL/L (136-145) Potassium Level 4.6 MMOL/L (3.5-5.1) Chloride Level 113 MMOL/L (98-107) H Carbon Dioxide Level 23 MMOL/L (21-32) Anion Gap 8 mmol/L (5-15) Blood Urea Nitrogen 19 mg/dL (7-18) H Creatinine 2.0 MG/DL (0.55-1.30) H Estimat Glomerular Filtration Rate 28.6 mL/min (>60) Glucose Level 73 MG/DL (74-106) L Calcium Level 8.5 MG/DL (8.5-10.1) Calcium (Send out) Pending Phosphorus Level 3.8 MG/DL (2.5-4.9) Vitamin D 25-Hydroxy Pending 25-Hydroxy Vitamin D2 Pending 25-Hydroxy Vitamin D3 Pending Parathyroid Hormone (Intact) Pending Current Medications Medications (Trade) Dose Ordered Sig/Liss Route PRN Reason Start Time Stop Time Status Last Admin Dose Admin Acetaminophen (Tylenol) 650 mg Q4H PRN ORAL fever 03/25/20 16:00 04/24/20 15:59 Allopurinol (Zyloprim) 100 mg DAILY ORAL 03/26/20 09:00 04/25/20 08:59 03/27/20 08:34 Aspirin (Ecotrin) 325 mg DAILY ORAL 03/26/20 09:00 05/10/20 08:59 03/27/20 08:33 Cephalexin (Keflex) 250 mg BID ORAL 03/26/20 18:00 04/02/20 17:59 03/27/20 08:34 Dextrose (Dextrose 50%) 25 ml Q30M PRN IV Hypoglycemia 03/25/20 16:00 06/23/20 15:59 Dextrose (Dextrose 50%) 50 ml Q30M PRN IV Hypoglycemia 03/25/20 16:00 06/23/20 15:59 Diphenhydramine HCl (Benadryl Cream) 1 applic TID TOPIC 03/26/20 18:00 04/25/20 17:59 03/27/20 12:23 Gabapentin (Neurontin) 400 mg TID ORAL 03/25/20 20:00 04/24/20 19:59 03/27/20 12:23 Heparin Sodium (Porcine) (Heparin 5000 units/ml) 5,000 units EVERY 12 HOURS SUBQ 03/25/20 21:00 05/09/20 20:59 03/26/20 21:12 Hydroxyzine HCl (Atarax) 25 mg EVERY 8 HOURS PRN ORAL Itching 03/25/20 23:45 04/24/20 23:44 03/26/20 10:10 Insulin Aspart (NovoLOG) BEFORE MEALS AND HS SUBQ 03/25/20 16:30 06/23/20 16:29 Metoprolol Succinate (Toprol XL) 25 mg DAILY ORAL 03/26/20 09:00 06/24/20 08:59 03/26/20 08:47 Ondansetron HCl (Zofran) 4 mg Q6H PRN IVP Nausea & Vomiting 03/25/20 16:00 04/24/20 15:59 Oxycodone HCl (Roxicodone) 15 mg Q8H PRN ORAL Severe Pain (Pain Scale 7-10) 03/25/20 19:45 04/01/20 19:44 03/26/20 08:47 Polyethylene Glycol (Miralax) 17 gm HSPRN PRN ORAL Constipation 03/25/20 16:00 04/24/20 15:59 Triamcinolone Acetonide (Kenalog) 1 applic THREE TIMES A DAY TOPIC 03/26/20 17:00 06/24/20 16:59 03/27/20 12:23 Zolpidem Tartrate (Ambien) 5 mg HSPRN PRN ORAL Insomnia 03/25/20 16:00 04/01/20 15:59 Lillian Moss M.D. March 27, 2020 13:29
--- NOTE | 2020-03-27 14:43 | Diagnostic Imaging Report ---
Indication: Chest pain shortness of breath Technique: XRAY Chest 1v Comparison: 12/25/2019 Findings: Heart size and mediastinal contours are stable. There are atherosclerotic calcifications in the aorta. There is increase in interstitial markings with a somewhat peripheral predominance although this is somewhat decreased compared to the prior exam. There is some perihilar fullness. No significant pleural effusion. No evidence of pneumothorax. No dense consolidation. There are degenerative changes in the spine. No acute osseous abnormality. IMPRESSION: Subtle perihilar and peripheral-based interstitial opacities, persistent but decreased compared to the prior exam. Although findings may be related to fluid overload/CHF, the possibility of multifocal pneumonia (including viral pneumonia) is not excluded and correlation with clinical findings is recommended.
[2020-03-27 16:00] VITALS: BP 128/58
[2020-03-27] MEDS: HydrOXYzine tab 25mg tab ORAL PRN (16:47)
[2020-03-27] MEDS: Lac Hydrin 12% Lotion 8oz TOPIC SCH (18:17)
--- NOTE | 2020-03-27 18:42 | Cardiology Progress Note ---
Assessment/Plan Assessment/Plan 1. Leg edema, chronic in nature. 2. Leg pain, reactive to discontinuation of gabapentin. 3. Hypertension history. 4. Diabetes mellitus. 5. History of diastolic heart failure. 6. Gout. bp is fien saturating 97% room air cr loer off diuretics echo done normal ef mild diastolic dysfunction Subjective Cardiovascular: Denies: chest pain, lightheadedness, palpitations Respiratory: Reports: cough - min ad possibley chronic ; Denies: shortness of breath Gastrointestinal/Abdominal: Denies: abdominal pain Genitourinary: Denies: burning Subjective walked to br did noty get dizzy no sob with activity and no cp with walking Objective Last 24 Hour Vital Signs Date Time Temp Pulse Resp B/P (MAP) Pulse Ox O2 Delivery O2 Flow Rate FiO2 03/27/20 16:00 97.5 71 19 128/58 (81) 97 03/27/20 12:00 97.3 72 18 152/76 (101) 97 03/27/20 09:00 Room Air 03/27/20 08:35 86 110/67 03/27/20 08:00 96.4 86 19 110/67 (81) 94 03/27/20 04:14 97.7 80 24 145/76 (99) 95 03/27/20 00:06 97.5 76 22 143/75 (97) 93 03/26/20 20:25 97.2 67 20 119/64 (82) 90 03/26/20 20:09 Room Air Intake and Output 03/26/20 03/27/20 19:00 07:00 Intake Total 480 ml 360 ml Balance 480 ml 360 ml Intake Oral 480 ml Other 360 ml # Voids 3 3 # Bowel Movements 1 Laboratory Tests Test 03/27/20 05:30 Sodium Level 144 MMOL/L (136-145) Potassium Level 4.6 MMOL/L (3.5-5.1) Chloride Level 113 MMOL/L (98-107) H Carbon Dioxide Level 23 MMOL/L (21-32) Anion Gap 8 mmol/L (5-15) Blood Urea Nitrogen 19 mg/dL (7-18) H Creatinine 2.0 MG/DL (0.55-1.30) H Estimat Glomerular Filtration Rate 28.6 mL/min (>60) Glucose Level 73 MG/DL (74-106) L Calcium Level 8.5 MG/DL (8.5-10.1) Calcium (Send out) Pending Phosphorus Level 3.8 MG/DL (2.5-4.9) Vitamin D 25-Hydroxy Pending 25-Hydroxy Vitamin D2 Pending 25-Hydroxy Vitamin D3 Pending Parathyroid Hormone (Intact) Pending Microbiology Date/Time Source Procedure Growth Status 03/25/20 13:30 Blood Blood Culture - Preliminary NO GROWTH AFTER 24 HOURS Resulted 03/25/20 13:15 Blood Blood Culture - Preliminary NO GROWTH AFTER 24 HOURS Resulted 03/25/20 17:42 Nasal Nares MRSA Culture - Final NO METHICILLIN RESISTANT STAPH AUREUS... Complete 03/25/20 12:30 Nasopharynx Coronavirus COVID-19 PCR ([facility]) - Final Complete 03/25/20 17:42 Rectum - Final NO CARBAPENEM-RESISTANT ENTEROBACTERI... Complete 03/25/20 17:42 Rectum VRE Culture - Final NO VANCOMYCIN RESISTANT ENTEROCOCCUS ... Complete Objective per dr alejandre note CHEST: Lungs are clear to auscultation bilaterally without wheezes or rales. CARDIOVASCULAR: Regular rate. S1-S2 are normal without murmurs, rubs, or gallops. ABDOMEN: Soft, nontender, nondistended. Positive bowel sounds. No evidence of hepatosplenomegaly. Currently, no rebound or guarding. EXTREMITIES: Left leg is swollen when compared to the right. There is 2+ pitting edema on the left. Otherwise, without clubbing or cyanosis. Diego Pierce MD March 27, 2020 18:42
[2020-03-27 20:00] VITALS: BP 127/56
[2020-03-28] VITALS: BP 139/70
[2020-03-28 04:00] VITALS: BP 142/68
[2020-03-28] MEDS: NovoLOG Insulin Flexpen SUBQ SCH ×4 (05:55→21:00)
[2020-03-28 07:55] LABS: BASOPHILS % (AUTO) 1.2 % (0.0-2.0); EOSINOPHILS % (AUTO) 4.8 % (0.0-3.0); HEMATOCRIT 32.7 % (37.0-47.0); HEMOGLOBIN 10.6 G/DL (12.0-16.0); LYMPHOCYTES % (AUTO) 26.7 % (20.0-45.0); MEAN CORPUSCULAR VOLUME 93 FL (80-99); MONOCYTES % (AUTO) 14.8 % (1.0-10.0); NEUTROPHILS % (AUTO) 52.4 % (45.0-75.0); PLATELET COUNT 134 K/UL (150-450); RED CELL DISTRIBUTION WIDTH 15.3 % (11.6-14.8); WHITE BLOOD COUNT 3.8 K/UL (4.8-10.8)
[2020-03-28 08:00] VITALS: BP 159/75
[2020-03-28 08:03] LABS: ANION GAP 7 mmol/L (5-15); BLOOD UREA NITROGEN 19 mg/dL (7-18); CARBON DIOXIDE 25 MMOL/L (21-32); CHLORIDE 112 MMOL/L (98-107); CREATININE 1.8 MG/DL (0.55-1.30); POTASSIUM 4.7 MMOL/L (3.5-5.1); SODIUM 144 MMOL/L (136-145)
[2020-03-28] MEDS: Allopurinol 100mg Tab ORAL SCH (08:39)
[2020-03-28] MEDS: Cephalexin 250mg Cap ORAL SCH ×2 (08:39→21:27)
[2020-03-28] MEDS: Metoprolol Succinate XL 25mg tab ORAL SCH (08:39)
[2020-03-28] MEDS: Aspirin EC 325mg tab ORAL SCH (08:39)
[2020-03-28] MEDS: DiphenhydrAMINE & Zinc 28g Cream TOPIC SCH ×3 (08:44→18:00)
[2020-03-28] MEDS: Lac Hydrin 12% Lotion 8oz TOPIC SCH ×2 (08:45→18:00)
[2020-03-28] MEDS: Triamcinolone 0.1% 15gm Cr TOPIC SCH ×3 (08:45→18:00)
[2020-03-28] MEDS: Heparin 5000 units/ml inj SUBQ SCH ×2 (09:00→21:00)
[2020-03-28] MEDS: oxyCODONE 15mg IR tab ORAL PRN (09:52)
[2020-03-28] MEDS: HydrOXYzine tab 25mg tab ORAL PRN (09:52)
[2020-03-28 12:00] VITALS: BP 119/67
[2020-03-28] MEDS ORDERED: DiphenhydrAMINE 25mg Tab ORAL PRN (12:15)
--- NOTE | 2020-03-28 12:16 | Pulmonology Progress Note ---
Subjective ROS Limited/Unobtainable: No Constitutional: Reports: no symptoms HEENT: Repors: no symptoms Allergies: Coded Allergies: DIAZEPAM (Verified Allergy, Unknown, 10/07/11) HYDROCODONE (Verified Allergy, Unknown, 07/07/10) MINOXIDIL (Verified Allergy, Unknown, 07/07/10) PENICILLINS (Unverified Allergy, Unknown, 03/26/20) tolerates cephalosporin NAME ALERT (Verified Adverse Reaction, Unknown, 07/13/08) Objective Last 24 Hour Vital Signs Date Time Temp Pulse Resp B/P (MAP) Pulse Ox O2 Delivery O2 Flow Rate FiO2 03/28/20 09:00 Room Air 03/28/20 08:39 74 159/75 03/28/20 08:00 98.1 74 19 159/75 (103) 96 03/28/20 04:00 97.7 80 24 142/68 (92) 97 03/28/20 00:00 98.6 82 24 139/70 (93) 100 03/27/20 21:00 Room Air 03/27/20 20:00 97.2 80 22 127/56 (79) 100 03/27/20 16:00 97.5 71 19 128/58 (81) 97 Intake and Output 03/27/20 03/28/20 19:00 07:00 Intake Total 720 ml 360 ml Balance 720 ml 360 ml Intake Oral 720 ml Other 360 ml # Voids 3 General Appearance: WD/WN HEENT: normocephalic, atraumatic Respiratory: chest wall non-tender, lungs clear Cardiovascular: normal peripheral pulses, normal rate Abdomen: normal bowel sounds, no organomegaly Genitourinary: normal external genitalia Skin: no rash, no ulcers Lymphatic: no neck adenopathy Microbiology Date/Time Source Procedure Growth Status 03/25/20 13:30 Blood Blood Culture - Preliminary NO GROWTH AFTER 48 HOURS Resulted 03/25/20 13:15 Blood Blood Culture - Preliminary NO GROWTH AFTER 48 HOURS Resulted 03/25/20 17:42 Nasal Nares MRSA Culture - Final NO METHICILLIN RESISTANT STAPH AUREUS... Complete 03/25/20 12:30 Nasopharynx Coronavirus COVID-19 PCR ([facility]) - Final Complete 03/25/20 17:42 Rectum - Final NO CARBAPENEM-RESISTANT ENTEROBACTERI... Complete 03/25/20 17:42 Rectum VRE Culture - Final NO VANCOMYCIN RESISTANT ENTEROCOCCUS ... Complete Laboratory Tests 03/28/20 07:30: White Blood Count 3.8L, Red Blood Count 3.50L, Hemoglobin 10.6L, Hematocrit 32.7L, Mean Corpuscular Volume 93, Mean Corpuscular Hemoglobin 30.4, Mean Corpuscular Hemoglobin Concent 32.5, Red Cell Distribution Width 15.3H, Platelet Count 134L, Mean Platelet Volume 4.1L, Neutrophils (%) (Auto) 52.4, Lymphocytes (%) (Auto) 26.7, Monocytes (%) (Auto) 14.8H, Eosinophils (%) (Auto) 4.8H, Basophils (%) (Auto) 1.2, Sodium Level 144, Potassium Level 4.7, Chloride Level 112H, Carbon Dioxide Level 25, Anion Gap 7, Blood Urea Nitrogen 19H, Creatinine 1.8H, Estimat Glomerular Filtration Rate 32.4, Glucose Level 84, Calcium Level 9.0 Current Medications Medications (Trade) Dose Ordered Sig/Liss Route PRN Reason Start Time Stop Time Status Last Admin Dose Admin Acetaminophen (Tylenol) 650 mg Q4H PRN ORAL fever 03/25/20 16:00 04/24/20 15:59 Allopurinol (Zyloprim) 100 mg DAILY ORAL 03/26/20 09:00 04/25/20 08:59 03/28/20 08:39 Ammonium Lactate (Lac Hydrin) 1 applic TWICE A DAY TOPIC 03/27/20 18:00 06/25/20 17:59 03/27/20 18:17 Aspirin (Ecotrin) 325 mg DAILY ORAL 03/26/20 09:00 05/10/20 08:59 03/28/20 08:39 Cephalexin (Keflex) 250 mg Q12HR ORAL 03/27/20 21:00 04/03/20 20:59 03/28/20 08:39 Dextrose (Dextrose 50%) 25 ml Q30M PRN IV Hypoglycemia 03/25/20 16:00 06/23/20 15:59 Dextrose (Dextrose 50%) 50 ml Q30M PRN IV Hypoglycemia 03/25/20 16:00 06/23/20 15:59 Diphenhydramine HCl (Benadryl Cream) 1 applic TID TOPIC 03/26/20 18:00 04/25/20 17:59 03/28/20 08:44 Gabapentin (Neurontin) 400 mg TID ORAL 03/25/20 20:00 04/24/20 19:59 03/28/20 08:39 Heparin Sodium (Porcine) (Heparin 5000 units/ml) 5,000 units EVERY 12 HOURS SUBQ 03/25/20 21:00 05/09/20 20:59 03/27/20 21:00 Hydroxyzine HCl (Atarax) 25 mg EVERY 8 HOURS PRN ORAL Itching 03/25/20 23:45 04/24/20 23:44 03/28/20 09:52 Insulin Aspart (NovoLOG) BEFORE MEALS AND HS SUBQ 03/25/20 16:30 06/23/20 16:29 Metoprolol Succinate (Toprol XL) 25 mg DAILY ORAL 03/26/20 09:00 06/24/20 08:59 03/28/20 08:39 Ondansetron HCl (Zofran) 4 mg Q6H PRN IVP Nausea & Vomiting 03/25/20 16:00 04/24/20 15:59 Oxycodone HCl (Roxicodone) 15 mg Q8H PRN ORAL Severe Pain (Pain Scale 7-10) 03/25/20 19:45 04/01/20 19:44 03/28/20 09:52 Polyethylene Glycol (Miralax) 17 gm HSPRN PRN ORAL Constipation 03/25/20 16:00 04/24/20 15:59 Triamcinolone Acetonide (Kenalog) 1 applic THREE TIMES A DAY TOPIC 03/26/20 17:00 06/24/20 16:59 03/28/20 08:45 Zolpidem Tartrate (Ambien) 5 mg HSPRN PRN ORAL Insomnia 03/25/20 16:00 04/01/20 15:59 Assessment/Plan Problems: (1) Suspected COVID-19 virus infection (2) Acute on chronic renal insufficiency (3) Peripheral edema (4) Asthma (5) CKD (chronic kidney disease) (6) Diabetes mellitus (7) HTN (hypertension) (8) GERD (gastroesophageal reflux disease) (9) Cerebral vascular disease (10) Gout Assessment/Plan c/o itching, will add Benadryl covid - times one renal function improving all reviewed f/u electrolytes cultures pending respiratory treatment titrate fio2 to sat of o2% f/u renal studies all reviewed Roberta Durán MD March 28, 2020 12:16
[2020-03-28] MEDS ORDERED: HydrOXYzine tab 25mg tab ORAL PRN (12:30)
--- NOTE | 2020-03-28 12:33 | Nephrology Progress Note ---
Assessment/Plan Problem List: (1) Acute on chronic renal insufficiency Assessment: better (2) Gout (3) HTN (hypertension) (4) Diabetes mellitus (5) Gastric cancer (6) Anemia (7) Suspected COVID-19 virus infection (8) Peripheral edema Assessment PTH is ok Plan hold diuretics follow BMP discussed with SOPHIA vanessa Subjective Subjective less itching Objective Objective Last 24 Hour Vital Signs Date Time Temp Pulse Resp B/P (MAP) Pulse Ox O2 Delivery O2 Flow Rate FiO2 03/28/20 09:00 Room Air 03/28/20 08:39 74 159/75 03/28/20 08:00 98.1 74 19 159/75 (103) 96 03/28/20 04:00 97.7 80 24 142/68 (92) 97 03/28/20 00:00 98.6 82 24 139/70 (93) 100 03/27/20 21:00 Room Air 03/27/20 20:00 97.2 80 22 127/56 (79) 100 03/27/20 16:00 97.5 71 19 128/58 (81) 97 Intake and Output 03/27/20 03/28/20 19:00 07:00 Intake Total 720 ml 360 ml Balance 720 ml 360 ml Intake Oral 720 ml Other 360 ml # Voids 3 Laboratory Tests 03/28/20 07:30: White Blood Count 3.8L, Red Blood Count 3.50L, Hemoglobin 10.6L, Hematocrit 32.7L, Mean Corpuscular Volume 93, Mean Corpuscular Hemoglobin 30.4, Mean Corpuscular Hemoglobin Concent 32.5, Red Cell Distribution Width 15.3H, Platelet Count 134L, Mean Platelet Volume 4.1L, Neutrophils (%) (Auto) 52.4, Lymphocytes (%) (Auto) 26.7, Monocytes (%) (Auto) 14.8H, Eosinophils (%) (Auto) 4.8H, Basophils (%) (Auto) 1.2, Sodium Level 144, Potassium Level 4.7, Chloride Level 112H, Carbon Dioxide Level 25, Anion Gap 7, Blood Urea Nitrogen 19H, Creatinine 1.8H, Estimat Glomerular Filtration Rate 32.4, Glucose Level 84, Calcium Level 9.0 Height (Feet): 5 Height (Inches): 3.00 Weight (Pounds): 234 Cardiovascular: normal rate Respiratory/Chest: lungs clear Extremities: moderate edema Amor Flores MD March 28, 2020 12:33
--- NOTE | 2020-03-28 13:22 | Infectious Diseases Prog Note ---
Assessment/Plan Assessment/Plan Assessment: Lung opacities- doubt PNA, probably mild volume overload- COVID neg x1 -03/27 CXR: Subtle perihilar and peripheral-based interstitial opacities, persistent but decreased compared to the prior exam. Although findings may be related to fluid overload/CHF, the possibility of multifocal pneumonia (including viral pneumonia ) is not excluded and correlation with clinical findings is recommended. -03/25 CXR: Subtle perihilar and peripheral-based interstitial opacities. Although findings may be related to fluid overload/CHF, possibility of multifocal pneumonia (including viral pneumonia) is not excluded and correlation with clinical findings is recommended. Follow-up recommended. -03/25 SARS COV2 PCR neg Afebrile Mild leukopenia (chronic) -u/a neg -Bcx NTD L leg swelling-mild cellulitis -V duplex: No DVT chronic dermatitis- flare MORGAN on CKD; improving HTN Asthma Dm2 GERD CVA x3 morbid obesity gout cardiomyopathy s/p cholecystectomy SNF resident ([facility]) Plan: -Continue PO Keflex #3/ for mild cellulitis -f/u cx -Monitor CBC/CMP, temperature -COVID19 neg x1- ok to dc isolation -Benadryl and triamcinolone cream from arms and legs Thank you for consulting [facility]. Will continue to follow along with you. Subjective Allergies: Coded Allergies: DIAZEPAM (Verified Allergy, Unknown, 10/07/11) HYDROCODONE (Verified Allergy, Unknown, 07/07/10) MINOXIDIL (Verified Allergy, Unknown, 07/07/10) PENICILLINS (Unverified Allergy, Unknown, 03/26/20) tolerates cephalosporin NAME ALERT (Verified Adverse Reaction, Unknown, 07/13/08) Subjective afebrile at RA Cr improving Objective Vital Signs Last 24 Hour Vital Signs Date Time Temp Pulse Resp B/P (MAP) Pulse Ox O2 Delivery O2 Flow Rate FiO2 03/28/20 12:00 98.1 73 20 119/67 (84) 94 03/28/20 09:00 Room Air 03/28/20 08:39 74 159/75 03/28/20 08:00 98.1 74 19 159/75 (103) 96 03/28/20 04:00 97.7 80 24 142/68 (92) 97 5/21/20 00:00 98.6 82 24 139/70 (93) 100 03/27/20 21:00 Room Air 03/27/20 20:00 97.2 80 22 127/56 (79) 100 03/27/20 16:00 97.5 71 19 128/58 (81) 97 Height (Feet): 5 Height (Inches): 3.00 Weight (Pounds): 234 Objective Gen: no respiratory distress Head: normocephalic Lungs: no tachypnea or use of accessory resp muscles Abd: not distended Microbiology Date/Time Source Procedure Growth Status 03/25/20 13:30 Blood Blood Culture - Preliminary NO GROWTH AFTER 48 HOURS Resulted 03/25/20 17:42 Nasal Nares MRSA Culture - Final NO METHICILLIN RESISTANT STAPH AUREUS... Complete 03/25/20 17:42 Rectum - Final NO CARBAPENEM-RESISTANT ENTEROBACTERI... Complete 03/25/20 17:42 Rectum VRE Culture - Final NO VANCOMYCIN RESISTANT ENTEROCOCCUS ... Complete Laboratory Tests Test 03/28/20 07:30 White Blood Count 3.8 K/UL (4.8-10.8) L Red Blood Count 3.50 M/UL (4.20-5.40) L Hemoglobin 10.6 G/DL (12.0-16.0) L Hematocrit 32.7 % (37.0-47.0) L Mean Corpuscular Volume 93 FL (80-99) Mean Corpuscular Hemoglobin 30.4 PG (27.0-31.0) Mean Corpuscular Hemoglobin Concent 32.5 G/DL (32.0-36.0) Red Cell Distribution Width 15.3 % (11.6-14.8) H Platelet Count 134 K/UL (150-450) L Mean Platelet Volume 4.1 FL (6.5-10.1) L Neutrophils (%) (Auto) 52.4 % (45.0-75.0) Lymphocytes (%) (Auto) 26.7 % (20.0-45.0) Monocytes (%) (Auto) 14.8 % (1.0-10.0) H Eosinophils (%) (Auto) 4.8 % (0.0-3.0) H Basophils (%) (Auto) 1.2 % (0.0-2.0) Sodium Level 144 MMOL/L (136-145) Potassium Level 4.7 MMOL/L (3.5-5.1) Chloride Level 112 MMOL/L (98-107) H Carbon Dioxide Level 25 MMOL/L (21-32) Anion Gap 7 mmol/L (5-15) Blood Urea Nitrogen 19 mg/dL (7-18) H Creatinine 1.8 MG/DL (0.55-1.30) H Estimat Glomerular Filtration Rate 32.4 mL/min (>60) Glucose Level 84 MG/DL (74-106) Calcium Level 9.0 MG/DL (8.5-10.1) Current Medications Medications (Trade) Dose Ordered Sig/Liss Route PRN Reason Start Time Stop Time Status Last Admin Dose Admin Acetaminophen (Tylenol) 650 mg Q4H PRN ORAL fever 03/25/20 16:00 04/24/20 15:59 Allopurinol (Zyloprim) 100 mg DAILY ORAL 03/26/20 09:00 04/25/20 08:59 03/28/20 08:39 Ammonium Lactate (Lac Hydrin) 1 applic TWICE A DAY TOPIC 03/27/20 18:00 06/25/20 17:59 03/27/20 18:17 Aspirin (Ecotrin) 325 mg DAILY ORAL 03/26/20 09:00 05/10/20 08:59 03/28/20 08:39 Cephalexin (Keflex) 250 mg Q12HR ORAL 03/27/20 21:00 04/03/20 20:59 03/28/20 08:39 Dextrose (Dextrose 50%) 25 ml Q30M PRN IV Hypoglycemia 03/25/20 16:00 06/23/20 15:59 Dextrose (Dextrose 50%) 50 ml Q30M PRN IV Hypoglycemia 03/25/20 16:00 06/23/20 15:59 Diphenhydramine HCl (Benadryl Cream) 1 applic TID TOPIC 03/26/20 18:00 04/25/20 17:59 03/28/20 08:44 Diphenhydramine HCl (Benadryl) 25 mg Q6H PRN ORAL Itching 03/28/20 12:15 04/27/20 12:14 Gabapentin (Neurontin) 400 mg TID ORAL 03/25/20 20:00 04/24/20 19:59 03/28/20 08:39 Heparin Sodium (Porcine) (Heparin 5000 units/ml) 5,000 units EVERY 12 HOURS SUBQ 03/25/20 21:00 05/09/20 20:59 03/27/20 21:00 Hydroxyzine HCl (Atarax) 25 mg EVERY 8 HOURS PRN ORAL Itching 03/28/20 12:30 04/24/20 23:44 Insulin Aspart (NovoLOG) BEFORE MEALS AND HS SUBQ 03/25/20 16:30 06/23/20 16:29 Metoprolol Succinate (Toprol XL) 25 mg DAILY ORAL 03/26/20 09:00 06/24/20 08:59 03/28/20 08:39 Ondansetron HCl (Zofran) 4 mg Q6H PRN IVP Nausea & Vomiting 03/25/20 16:00 04/24/20 15:59 Oxycodone HCl (Roxicodone) 15 mg Q8H PRN ORAL Severe Pain (Pain Scale 7-10) 03/25/20 19:45 04/01/20 19:44 03/28/20 09:52 Polyethylene Glycol (Miralax) 17 gm HSPRN PRN ORAL Constipation 03/25/20 16:00 04/24/20 15:59 Triamcinolone Acetonide (Kenalog) 1 applic THREE TIMES A DAY TOPIC 03/26/20 17:00 06/24/20 16:59 03/28/20 08:45 Zolpidem Tartrate (Ambien) 5 mg HSPRN PRN ORAL Insomnia 03/25/20 16:00 04/01/20 15:59 Lillian Moss M.D. March 28, 2020 13:21
[2020-03-28 16:00] VITALS: BP 122/71
--- NOTE | 2020-03-28 16:30 | Cardiology Progress Note ---
Assessment/Plan Assessment/Plan 1. Leg edema, chronic in nature. 2. Leg pain, reactive to discontinuation of gabapentin. 3. Hypertension history. 4. Diabetes mellitus. 5. History of diastolic heart failure. 6. Gout. bp is fien saturating 96% room air cr lower off diuretics echo done normal ef mild diastolic dysfunction Subjective Cardiovascular: Denies: chest pain, lightheadedness, palpitations Respiratory: Denies: cough, shortness of breath Gastrointestinal/Abdominal: Denies: abdominal pain Genitourinary: Denies: burning Subjective walked to br did noty get dizzy no sob with activity and no cp with walking Objective Last 24 Hour Vital Signs Date Time Temp Pulse Resp B/P (MAP) Pulse Ox O2 Delivery O2 Flow Rate FiO2 03/28/20 12:00 98.1 73 20 119/67 (84) 94 03/28/20 09:00 Room Air 03/28/20 08:39 74 159/75 03/28/20 08:00 98.1 74 19 159/75 (103) 96 03/28/20 04:00 97.7 80 24 142/68 (92) 97 03/28/20 00:00 98.6 82 24 139/70 (93) 100 03/27/20 21:00 Room Air 03/27/20 20:00 97.2 80 22 127/56 (79) 100 General Appearance: no apparent distress Intake and Output 03/27/20 03/28/20 19:00 07:00 Intake Total 720 ml 360 ml Balance 720 ml 360 ml Intake Oral 720 ml Other 360 ml # Voids 3 Laboratory Tests Test 03/28/20 07:30 White Blood Count 3.8 K/UL (4.8-10.8) L Red Blood Count 3.50 M/UL (4.20-5.40) L Hemoglobin 10.6 G/DL (12.0-16.0) L Hematocrit 32.7 % (37.0-47.0) L Mean Corpuscular Volume 93 FL (80-99) Mean Corpuscular Hemoglobin 30.4 PG (27.0-31.0) Mean Corpuscular Hemoglobin Concent 32.5 G/DL (32.0-36.0) Red Cell Distribution Width 15.3 % (11.6-14.8) H Platelet Count 134 K/UL (150-450) L Mean Platelet Volume 4.1 FL (6.5-10.1) L Neutrophils (%) (Auto) 52.4 % (45.0-75.0) Lymphocytes (%) (Auto) 26.7 % (20.0-45.0) Monocytes (%) (Auto) 14.8 % (1.0-10.0) H Eosinophils (%) (Auto) 4.8 % (0.0-3.0) H Basophils (%) (Auto) 1.2 % (0.0-2.0) Sodium Level 144 MMOL/L (136-145) Potassium Level 4.7 MMOL/L (3.5-5.1) Chloride Level 112 MMOL/L (98-107) H Carbon Dioxide Level 25 MMOL/L (21-32) Anion Gap 7 mmol/L (5-15) Blood Urea Nitrogen 19 mg/dL (7-18) H Creatinine 1.8 MG/DL (0.55-1.30) H Estimat Glomerular Filtration Rate 32.4 mL/min (>60) Glucose Level 84 MG/DL (74-106) Calcium Level 9.0 MG/DL (8.5-10.1) Microbiology Date/Time Source Procedure Growth Status 03/25/20 17:42 Nasal Nares MRSA Culture - Final NO METHICILLIN RESISTANT STAPH AUREUS... Complete 03/25/20 17:42 Rectum - Final NO CARBAPENEM-RESISTANT ENTEROBACTERI... Complete 03/25/20 17:42 Rectum VRE Culture - Final NO VANCOMYCIN RESISTANT ENTEROCOCCUS ... Complete Objective per dr alejandre note CHEST: Lungs are clear to auscultation bilaterally without wheezes or rales. CARDIOVASCULAR: Regular rate. S1-S2 are normal without murmurs, rubs, or gallops. ABDOMEN: Soft, nontender, nondistended. Positive bowel sounds. No evidence of hepatosplenomegaly. Currently, no rebound or guarding. EXTREMITIES: Left leg is swollen when compared to the right. There is 2+ pitting edema on the left. Otherwise, without clubbing or cyanosis. Diego Pierce MD March 28, 2020 16:30
--- NOTE | 2020-03-28 17:08 | Internal Med Progress Note ---
Subjective Date of Service: March 28, 2020 Physician Name Aníbal Cuellar Attending Physician Christopher Villanueva MD Current Medications Medications (Trade) Dose Ordered Sig/Liss Route PRN Reason Start Time Stop Time Status Last Admin Dose Admin Acetaminophen (Tylenol) 650 mg Q4H PRN ORAL fever 03/25/20 16:00 04/24/20 15:59 Allopurinol (Zyloprim) 100 mg DAILY ORAL 03/26/20 09:00 04/25/20 08:59 03/28/20 08:39 Ammonium Lactate (Lac Hydrin) 1 applic TWICE A DAY TOPIC 03/27/20 18:00 06/25/20 17:59 03/27/20 18:17 Aspirin (Ecotrin) 325 mg DAILY ORAL 03/26/20 09:00 05/10/20 08:59 03/28/20 08:39 Cephalexin (Keflex) 250 mg Q12HR ORAL 03/27/20 21:00 04/03/20 20:59 03/28/20 08:39 Dextrose (Dextrose 50%) 25 ml Q30M PRN IV Hypoglycemia 03/25/20 16:00 06/23/20 15:59 Dextrose (Dextrose 50%) 50 ml Q30M PRN IV Hypoglycemia 03/25/20 16:00 06/23/20 15:59 Diphenhydramine HCl (Benadryl Cream) 1 applic TID TOPIC 03/26/20 18:00 04/25/20 17:59 03/28/20 13:28 Diphenhydramine HCl (Benadryl) 25 mg Q6H PRN ORAL Itching 03/28/20 12:15 04/27/20 12:14 Gabapentin (Neurontin) 400 mg TID ORAL 03/25/20 20:00 04/24/20 19:59 03/28/20 13:20 Heparin Sodium (Porcine) (Heparin 5000 units/ml) 5,000 units EVERY 12 HOURS SUBQ 03/25/20 21:00 05/09/20 20:59 03/27/20 21:00 Hydroxyzine HCl (Atarax) 25 mg EVERY 8 HOURS PRN ORAL Itching 03/28/20 12:30 04/24/20 23:44 Insulin Aspart (NovoLOG) BEFORE MEALS AND HS SUBQ 03/25/20 16:30 06/23/20 16:29 Metoprolol Succinate (Toprol XL) 25 mg DAILY ORAL 03/26/20 09:00 06/24/20 08:59 03/28/20 08:39 Ondansetron HCl (Zofran) 4 mg Q6H PRN IVP Nausea & Vomiting 03/25/20 16:00 04/24/20 15:59 Oxycodone HCl (Roxicodone) 15 mg Q8H PRN ORAL Severe Pain (Pain Scale 7-10) 03/25/20 19:45 04/01/20 19:44 03/28/20 09:52 Polyethylene Glycol (Miralax) 17 gm HSPRN PRN ORAL Constipation 03/25/20 16:00 04/24/20 15:59 Triamcinolone Acetonide (Kenalog) 1 applic THREE TIMES A DAY TOPIC 03/26/20 17:00 06/24/20 16:59 03/28/20 13:27 Zolpidem Tartrate (Ambien) 5 mg HSPRN PRN ORAL Insomnia 03/25/20 16:00 04/01/20 15:59 Allergies: Coded Allergies: DIAZEPAM (Verified Allergy, Unknown, 10/07/11) HYDROCODONE (Verified Allergy, Unknown, 07/07/10) MINOXIDIL (Verified Allergy, Unknown, 07/07/10) PENICILLINS (Unverified Allergy, Unknown, 03/26/20) tolerates cephalosporin NAME ALERT (Verified Adverse Reaction, Unknown, 07/13/08) ROS Limited/Unobtainable: Yes Subjective 84 YO F admitted with edema of LLE. Now acute on chronic renal failure. Cover for Int Saúl-Dr Villanueva Objective Last Vital Signs Date Time Temp Pulse Resp B/P (MAP) Pulse Ox O2 Delivery O2 Flow Rate FiO2 03/28/20 12:00 98.1 73 20 119/67 (84) 94 03/28/20 09:00 Room Air Laboratory Tests Test 03/28/20 07:30 White Blood Count 3.8 K/UL (4.8-10.8) L Red Blood Count 3.50 M/UL (4.20-5.40) L Hemoglobin 10.6 G/DL (12.0-16.0) L Hematocrit 32.7 % (37.0-47.0) L Mean Corpuscular Volume 93 FL (80-99) Mean Corpuscular Hemoglobin 30.4 PG (27.0-31.0) Mean Corpuscular Hemoglobin Concent 32.5 G/DL (32.0-36.0) Red Cell Distribution Width 15.3 % (11.6-14.8) H Platelet Count 134 K/UL (150-450) L Mean Platelet Volume 4.1 FL (6.5-10.1) L Neutrophils (%) (Auto) 52.4 % (45.0-75.0) Lymphocytes (%) (Auto) 26.7 % (20.0-45.0) Monocytes (%) (Auto) 14.8 % (1.0-10.0) H Eosinophils (%) (Auto) 4.8 % (0.0-3.0) H Basophils (%) (Auto) 1.2 % (0.0-2.0) Sodium Level 144 MMOL/L (136-145) Potassium Level 4.7 MMOL/L (3.5-5.1) Chloride Level 112 MMOL/L (98-107) H Carbon Dioxide Level 25 MMOL/L (21-32) Anion Gap 7 mmol/L (5-15) Blood Urea Nitrogen 19 mg/dL (7-18) H Creatinine 1.8 MG/DL (0.55-1.30) H Estimat Glomerular Filtration Rate 32.4 mL/min (>60) Glucose Level 84 MG/DL (74-106) Calcium Level 9.0 MG/DL (8.5-10.1) Microbiology Date/Time Source Procedure Growth Status 03/25/20 17:42 Nasal Nares MRSA Culture - Final NO METHICILLIN RESISTANT STAPH AUREUS... Complete 03/25/20 17:42 Rectum - Final NO CARBAPENEM-RESISTANT ENTEROBACTERI... Complete 03/25/20 17:42 Rectum VRE Culture - Final NO VANCOMYCIN RESISTANT ENTEROCOCCUS ... Complete Intake and Output 03/27/20 03/28/20 19:00 07:00 Intake Total 720 ml 360 ml Balance 720 ml 360 ml Intake Oral 720 ml Other 360 ml # Voids 3 Objective PHYSICAL EXAMINATION: GENERAL: Patient is well-developed, well-nourished obese female, in no apparent distress. HEENT: Eyes, pupils are equal and responsive to light and accommodation. Extraocular movements are intact. NECK: Supple without lymphadenopathy. CHEST: Lungs are clear to auscultation bilaterally without wheezes or rales. CARDIOVASCULAR: Regular rate. S1-S2 are normal without murmurs, rubs, or gallops. ABDOMEN: Soft, nontender, nondistended. Positive bowel sounds. No evidence of hepatosplenomegaly. Currently, no rebound or guarding. EXTREMITIES: Left leg is swollen when compared to the right. There is 2+ pitting edema on the left. Otherwise, without clubbing or cyanosis. RECTAL/GENITAL: Not performed. NEUROLOGIC: Cranial nerves II through XII are grossly intact without focal deficits. Motor strength is 5/5 bilaterally. Deep tendon reflexes are 2+ plantar. Assessment/Plan Assessment/Plan ASSESSMENT: This is an 84-year-old female. 1. Left lower extremity edema. 2. Acute on chronic renal failure. 3. Congestive heart failure. 4. Gastroesophageal reflux disease. 5. Diabetes type 2. 6. Anemia. 7. Hypertension. 8. Cerebrovascular disease. 9. Diabetes. 10. Gout. 11. Cardiomyopathy. TREATMENT: 1. Left lower extremity edema. A venous duplex Doppler=neg DVT. ABX=keflex per ID=Dr Moss 2. Acute on chronic renal failure. A Nephrology consultation has been obtained with Dr. Rafael Castillo. 3. Congestive heart failure. Cardiology consultation has been obtained with Dr. Pierce. 4. Gastroesophageal reflux disease. Continue Protonix as above. 5. Diabetes type 2. A NovoLog sliding scale has been instituted. 6. Anemia. 7. Hypertension. Continue metoprolol as above. 8. Cerebrovascular disease. 9. Obesity. 10. Gout. Continue allopurinol as above. 11. History of cardiomyopathy 12. Discharge to [facility] today Aníbal Cuellar MD March 28, 2020 17:08
[2020-03-28 20:33] VITALS: BP 126/49
[2020-03-29 04:00] VITALS: BP 138/77
[2020-03-29] MEDS: NovoLOG Insulin Flexpen SUBQ SCH ×4 (05:56→21:00)
[2020-03-29 08:00] VITALS: BP 145/74
[2020-03-29] MEDS: Metoprolol Succinate XL 25mg tab ORAL SCH (08:44)
[2020-03-29] MEDS: Cephalexin 250mg Cap ORAL SCH ×2 (08:45→21:23)
[2020-03-29] MEDS: Allopurinol 100mg Tab ORAL SCH (08:45)
[2020-03-29] MEDS: Aspirin EC 325mg tab ORAL SCH (08:45)
[2020-03-29] MEDS: Lac Hydrin 12% Lotion 8oz TOPIC SCH ×2 (08:48→17:42)
[2020-03-29] MEDS: Triamcinolone 0.1% 15gm Cr TOPIC SCH ×3 (08:48→17:42)
[2020-03-29] MEDS: DiphenhydrAMINE & Zinc 28g Cream TOPIC SCH ×3 (08:48→17:42)
[2020-03-29] MEDS: Heparin 5000 units/ml inj SUBQ SCH ×2 (08:48→21:00)
[2020-03-29 12:00] VITALS: BP 120/86
--- NOTE | 2020-03-29 13:01 | Infectious Diseases Prog Note ---
Assessment/Plan Assessment/Plan Assessment: Lung opacities- doubt PNA, probably mild volume overload- COVID neg x1 -03/27 CXR: Subtle perihilar and peripheral-based interstitial opacities, persistent but decreased compared to the prior exam. Although findings may be related to fluid overload/CHF, the possibility of multifocal pneumonia (including viral pneumonia ) is not excluded and correlation with clinical findings is recommended. -03/25 CXR: Subtle perihilar and peripheral-based interstitial opacities. Although findings may be related to fluid overload/CHF, possibility of multifocal pneumonia (including viral pneumonia) is not excluded and correlation with clinical findings is recommended. Follow-up recommended. -03/25 SARS COV2 PCR neg Afebrile Mild leukopenia (chronic) -u/a neg -Bcx NTD L leg swelling-mild cellulitis -V duplex: No DVT chronic dermatitis- flare MORGAN on CKD; improving HTN Asthma Dm2 GERD CVA x3 morbid obesity gout cardiomyopathy s/p cholecystectomy SNF resident ([facility]) Plan: -Continue PO Keflex #4/5 for mild cellulitis -f/u cx -Monitor CBC/CMP, temperature -COVID19 neg x1- ok to dc isolation -Benadryl and triamcinolone cream from arms and legs Thank you for consulting [facility]. Will continue to follow along with you. Subjective Allergies: Coded Allergies: DIAZEPAM (Verified Allergy, Unknown, 10/07/11) HYDROCODONE (Verified Allergy, Unknown, 07/07/10) MINOXIDIL (Verified Allergy, Unknown, 07/07/10) PENICILLINS (Unverified Allergy, Unknown, 03/26/20) tolerates cephalosporin NAME ALERT (Verified Adverse Reaction, Unknown, 07/13/08) Subjective afebrile at RA Cr improving Objective Vital Signs Last 24 Hour Vital Signs Date Time Temp Pulse Resp B/P (MAP) Pulse Ox O2 Delivery O2 Flow Rate FiO2 03/29/20 12:00 97.5 75 18 120/86 (97) 98 03/29/20 09:00 Room Air 03/29/20 08:44 85 145/74 03/29/20 08:00 97.6 85 18 145/74 (97) 100 03/29/20 04:00 98.2 82 18 138/77 (97) 93 5/21/20 21:00 Room Air 03/28/20 20:33 98.1 70 18 126/49 (74) 95 03/28/20 16:00 98.1 71 20 122/71 (88) 95 Height (Feet): 5 Height (Inches): 3.00 Weight (Pounds): 234 Objective Gen: no respiratory distress Head: normocephalic Lungs: no tachypnea or use of accessory resp muscles Abd: not distended Current Medications Medications (Trade) Dose Ordered Sig/Liss Route PRN Reason Start Time Stop Time Status Last Admin Dose Admin Acetaminophen (Tylenol) 650 mg Q4H PRN ORAL fever 03/25/20 16:00 04/24/20 15:59 Allopurinol (Zyloprim) 100 mg DAILY ORAL 03/26/20 09:00 04/25/20 08:59 03/29/20 08:45 Ammonium Lactate (Lac Hydrin) 1 applic TWICE A DAY TOPIC 03/27/20 18:00 06/25/20 17:59 03/29/20 08:48 Aspirin (Ecotrin) 325 mg DAILY ORAL 03/26/20 09:00 05/10/20 08:59 03/29/20 08:45 Cephalexin (Keflex) 250 mg Q12HR ORAL 03/27/20 21:00 04/03/20 20:59 03/29/20 08:45 Cetylpyridinium Chloride (Cepacol) 1 lozg Q4H PRN ALBA sore throat 03/29/20 10:45 06/27/20 10:44 03/29/20 10:53 Dextrose (Dextrose 50%) 25 ml Q30M PRN IV Hypoglycemia 03/25/20 16:00 06/23/20 15:59 Dextrose (Dextrose 50%) 50 ml Q30M PRN IV Hypoglycemia 03/25/20 16:00 06/23/20 15:59 Diphenhydramine HCl (Benadryl Cream) 1 applic TID TOPIC 03/26/20 18:00 04/25/20 17:59 03/29/20 08:48 Diphenhydramine HCl (Benadryl) 25 mg Q6H PRN ORAL Itching 03/28/20 12:15 04/27/20 12:14 Gabapentin (Neurontin) 400 mg TID ORAL 03/25/20 20:00 04/24/20 19:59 03/29/20 08:45 Heparin Sodium (Porcine) (Heparin 5000 units/ml) 5,000 units EVERY 12 HOURS SUBQ 03/25/20 21:00 05/09/20 20:59 03/27/20 21:00 Hydroxyzine HCl (Atarax) 25 mg EVERY 8 HOURS PRN ORAL Itching 03/28/20 12:30 04/24/20 23:44 Insulin Aspart (NovoLOG) BEFORE MEALS AND HS SUBQ 03/25/20 16:30 06/23/20 16:29 Metoprolol Succinate (Toprol XL) 25 mg DAILY ORAL 03/26/20 09:00 06/24/20 08:59 03/29/20 08:44 Ondansetron HCl (Zofran) 4 mg Q6H PRN IVP Nausea & Vomiting 03/25/20 16:00 04/24/20 15:59 Oxycodone HCl (Roxicodone) 15 mg Q8H PRN ORAL Severe Pain (Pain Scale 7-10) 03/25/20 19:45 04/01/20 19:44 03/28/20 09:52 Polyethylene Glycol (Miralax) 17 gm HSPRN PRN ORAL Constipation 03/25/20 16:00 04/24/20 15:59 Triamcinolone Acetonide (Kenalog) 1 applic THREE TIMES A DAY TOPIC 03/26/20 17:00 06/24/20 16:59 03/29/20 08:48 Zolpidem Tartrate (Ambien) 5 mg HSPRN PRN ORAL Insomnia 03/25/20 16:00 04/01/20 15:59 Lillian Moss M.D. March 29, 2020 13:01
--- NOTE | 2020-03-29 13:34 | Pulmonology Progress Note ---
Subjective ROS Limited/Unobtainable: Yes Constitutional: Reports: no symptoms HEENT: Repors: no symptoms Allergies: Coded Allergies: DIAZEPAM (Verified Allergy, Unknown, 10/07/11) HYDROCODONE (Verified Allergy, Unknown, 07/07/10) MINOXIDIL (Verified Allergy, Unknown, 07/07/10) PENICILLINS (Unverified Allergy, Unknown, 03/26/20) tolerates cephalosporin NAME ALERT (Verified Adverse Reaction, Unknown, 07/13/08) Objective Last 24 Hour Vital Signs Date Time Temp Pulse Resp B/P (MAP) Pulse Ox O2 Delivery O2 Flow Rate FiO2 03/29/20 12:00 97.5 75 18 120/86 (97) 98 03/29/20 09:00 Room Air 03/29/20 08:44 85 145/74 03/29/20 08:00 97.6 85 18 145/74 (97) 100 03/29/20 04:00 98.2 82 18 138/77 (97) 93 03/28/20 21:00 Room Air 03/28/20 20:33 98.1 70 18 126/49 (74) 95 03/28/20 16:00 98.1 71 20 122/71 (88) 95 Intake and Output 03/28/20 03/29/20 19:00 07:00 Intake Total 360 ml 400 ml Balance 360 ml 400 ml Intake Oral 360 ml 400 ml # Voids 2 4 General Appearance: WD/WN HEENT: normocephalic, atraumatic Respiratory: chest wall non-tender, lungs clear Cardiovascular: normal peripheral pulses, normal rate Abdomen: normal bowel sounds, no organomegaly Genitourinary: normal external genitalia Skin: no rash, no ulcers Neurologic: mold mover II-XII grossly normal Lymphatic: no neck adenopathy Current Medications Medications (Trade) Dose Ordered Sig/Liss Route PRN Reason Start Time Stop Time Status Last Admin Dose Admin Acetaminophen (Tylenol) 650 mg Q4H PRN ORAL fever 03/25/20 16:00 04/24/20 15:59 Allopurinol (Zyloprim) 100 mg DAILY ORAL 03/26/20 09:00 04/25/20 08:59 03/29/20 08:45 Ammonium Lactate (Lac Hydrin) 1 applic TWICE A DAY TOPIC 03/27/20 18:00 06/25/20 17:59 03/29/20 08:48 Aspirin (Ecotrin) 325 mg DAILY ORAL 03/26/20 09:00 05/10/20 08:59 03/29/20 08:45 Cephalexin (Keflex) 250 mg Q12HR ORAL 03/27/20 21:00 04/03/20 20:59 03/29/20 08:45 Cetylpyridinium Chloride (Cepacol) 1 lozg Q4H PRN ALBA sore throat 03/29/20 10:45 06/27/20 10:44 03/29/20 10:53 Dextrose (Dextrose 50%) 25 ml Q30M PRN IV Hypoglycemia 03/25/20 16:00 06/23/20 15:59 Dextrose (Dextrose 50%) 50 ml Q30M PRN IV Hypoglycemia 03/25/20 16:00 06/23/20 15:59 Diphenhydramine HCl (Benadryl Cream) 1 applic TID TOPIC 03/26/20 18:00 04/25/20 17:59 03/29/20 13:25 Diphenhydramine HCl (Benadryl) 25 mg Q6H PRN ORAL Itching 03/28/20 12:15 04/27/20 12:14 Gabapentin (Neurontin) 400 mg TID ORAL 03/25/20 20:00 04/24/20 19:59 03/29/20 13:25 Heparin Sodium (Porcine) (Heparin 5000 units/ml) 5,000 units EVERY 12 HOURS SUBQ 03/25/20 21:00 05/09/20 20:59 03/27/20 21:00 Hydroxyzine HCl (Atarax) 25 mg EVERY 8 HOURS PRN ORAL Itching 03/28/20 12:30 04/24/20 23:44 Insulin Aspart (NovoLOG) BEFORE MEALS AND HS SUBQ 03/25/20 16:30 06/23/20 16:29 Metoprolol Succinate (Toprol XL) 25 mg DAILY ORAL 03/26/20 09:00 06/24/20 08:59 03/29/20 08:44 Ondansetron HCl (Zofran) 4 mg Q6H PRN IVP Nausea & Vomiting 03/25/20 16:00 04/24/20 15:59 Oxycodone HCl (Roxicodone) 15 mg Q8H PRN ORAL Severe Pain (Pain Scale 7-10) 03/25/20 19:45 04/01/20 19:44 03/28/20 09:52 Polyethylene Glycol (Miralax) 17 gm HSPRN PRN ORAL Constipation 03/25/20 16:00 04/24/20 15:59 Triamcinolone Acetonide (Kenalog) 1 applic THREE TIMES A DAY TOPIC 03/26/20 17:00 06/24/20 16:59 03/29/20 13:26 Zolpidem Tartrate (Ambien) 5 mg HSPRN PRN ORAL Insomnia 03/25/20 16:00 04/01/20 15:59 Assessment/Plan Problems: (1) Suspected COVID-19 virus infection (2) Acute on chronic renal insufficiency (3) Peripheral edema (4) Asthma (5) CKD (chronic kidney disease) (6) Diabetes mellitus (7) HTN (hypertension) (8) GERD (gastroesophageal reflux disease) (9) Cerebral vascular disease (10) Gout Assessment/Plan c/o itching, will add Benadryl covid - times one renal function improving, no labs today all reviewed f/u electrolytes cultures pending respiratory treatment titrate fio2 to sat of o2% f/u renal studies all reviewed dc planning Roberta Durán MD March 29, 2020 13:34
--- NOTE | 2020-03-29 13:43 | Nephrology Progress Note ---
Assessment/Plan Problem List: (1) Acute on chronic renal insufficiency Assessment: better (2) Gout (3) HTN (hypertension) (4) Diabetes mellitus (5) Gastric cancer (6) Anemia (7) Suspected COVID-19 virus infection (8) Peripheral edema Assessment PTH is ok Plan hold diuretics follow BMP discussed with RN Subjective Subjective feels ok Objective Objective Last 24 Hour Vital Signs Date Time Temp Pulse Resp B/P (MAP) Pulse Ox O2 Delivery O2 Flow Rate FiO2 03/29/20 12:00 97.5 75 18 120/86 (97) 98 03/29/20 09:00 Room Air 03/29/20 08:44 85 145/74 03/29/20 08:00 97.6 85 18 145/74 (97) 100 03/29/20 04:00 98.2 82 18 138/77 (97) 93 03/28/20 21:00 Room Air 03/28/20 20:33 98.1 70 18 126/49 (74) 95 03/28/20 16:00 98.1 71 20 122/71 (88) 95 Intake and Output 03/28/20 03/29/20 19:00 07:00 Intake Total 360 ml 400 ml Balance 360 ml 400 ml Intake Oral 360 ml 400 ml # Voids 2 4 Height (Feet): 5 Height (Inches): 3.00 Weight (Pounds): 234 Cardiovascular: normal rate Respiratory/Chest: lungs clear Amor Flores MD March 29, 2020 13:42
--- NOTE | 2020-03-29 14:55 | Cardiology Progress Note ---
Assessment/Plan Assessment/Plan 1. Leg edema, chronic in nature. 2. Leg pain, reactive to discontinuation of gabapentin. 3. Hypertension history. 4. Diabetes mellitus. 5. History of diastolic heart failure. 6. Gout. bp is fien saturating 96% room air cr lower off diuretics leg swellign has resolved no further burning in thel leg s echo done normal ef mild diastolic dysfunction possible dc to snf Subjective Cardiovascular: Denies: chest pain, lightheadedness, palpitations Respiratory: Denies: cough, shortness of breath Gastrointestinal/Abdominal: Denies: abdominal pain, constipated, diarrhea Genitourinary: Denies: burning Subjective walked to br did noty get dizzy Objective Last 24 Hour Vital Signs Date Time Temp Pulse Resp B/P (MAP) Pulse Ox O2 Delivery O2 Flow Rate FiO2 03/29/20 12:00 97.5 75 18 120/86 (97) 98 03/29/20 09:00 Room Air 03/29/20 08:44 85 145/74 03/29/20 08:00 97.6 85 18 145/74 (97) 100 03/29/20 04:00 98.2 82 18 138/77 (97) 93 03/28/20 21:00 Room Air 03/28/20 20:33 98.1 70 18 126/49 (74) 95 03/28/20 16:00 98.1 71 20 122/71 (88) 95 Intake and Output 03/28/20 03/29/20 19:00 07:00 Intake Total 360 ml 400 ml Balance 360 ml 400 ml Intake Oral 360 ml 400 ml # Voids [address] alejandre note CHEST: Lungs are clear to auscultation bilaterally without wheezes or rales. CARDIOVASCULAR: Regular rate. S1-S2 are normal without murmurs, rubs, or gallops. ABDOMEN: Soft, nontender, nondistended. Positive bowel sounds. No evidence of hepatosplenomegaly. Currently, no rebound or guarding. EXTREMITIES: Left leg is swollen when compared to the right. There is 2+ pitting edema on the left. Otherwise, without clubbing or cyanosis. Diego Pierce MD March 29, 2020 14:55
[2020-03-29 16:00] VITALS: BP 140/62
[2020-03-29] MEDS: oxyCODONE 15mg IR tab ORAL PRN (16:22)
--- NOTE | 2020-03-29 16:34 | Internal Med Progress Note ---
Subjective Physician Name Christopher Villanueva Attending Physician Christopher Villanueva MD Current Medications Medications (Trade) Dose Ordered Sig/Liss Route PRN Reason Start Time Stop Time Status Last Admin Dose Admin Acetaminophen (Tylenol) 650 mg Q4H PRN ORAL fever 03/25/20 16:00 04/24/20 15:59 Allopurinol (Zyloprim) 100 mg DAILY ORAL 03/26/20 09:00 04/25/20 08:59 03/29/20 08:45 Ammonium Lactate (Lac Hydrin) 1 applic TWICE A DAY TOPIC 03/27/20 18:00 06/25/20 17:59 03/29/20 08:48 Aspirin (Ecotrin) 325 mg DAILY ORAL 03/26/20 09:00 05/10/20 08:59 03/29/20 08:45 Cephalexin (Keflex) 250 mg Q12HR ORAL 03/27/20 21:00 03/30/20 21:59 03/29/20 08:45 Cetylpyridinium Chloride (Cepacol) 1 lozg Q4H PRN ALBA sore throat 03/29/20 10:45 06/27/20 10:44 03/29/20 10:53 Dextrose (Dextrose 50%) 25 ml Q30M PRN IV Hypoglycemia 03/25/20 16:00 06/23/20 15:59 Dextrose (Dextrose 50%) 50 ml Q30M PRN IV Hypoglycemia 03/25/20 16:00 06/23/20 15:59 Diphenhydramine HCl (Benadryl Cream) 1 applic TID TOPIC 03/26/20 18:00 04/25/20 17:59 03/29/20 13:25 Diphenhydramine HCl (Benadryl) 25 mg Q6H PRN ORAL Itching 03/28/20 12:15 04/27/20 12:14 Gabapentin (Neurontin) 400 mg TID ORAL 03/25/20 20:00 04/24/20 19:59 03/29/20 13:25 Heparin Sodium (Porcine) (Heparin 5000 units/ml) 5,000 units EVERY 12 HOURS SUBQ 03/25/20 21:00 05/09/20 20:59 03/27/20 21:00 Hydroxyzine HCl (Atarax) 25 mg EVERY 8 HOURS PRN ORAL Itching 03/28/20 12:30 04/24/20 23:44 Insulin Aspart (NovoLOG) BEFORE MEALS AND HS SUBQ 03/25/20 16:30 06/23/20 16:29 Metoprolol Succinate (Toprol XL) 25 mg DAILY ORAL 03/26/20 09:00 06/24/20 08:59 03/29/20 08:44 Ondansetron HCl (Zofran) 4 mg Q6H PRN IVP Nausea & Vomiting 03/25/20 16:00 04/24/20 15:59 Oxycodone HCl (Roxicodone) 15 mg Q8H PRN ORAL Severe Pain (Pain Scale 7-10) 03/25/20 19:45 04/01/20 19:44 03/29/20 16:22 Polyethylene Glycol (Miralax) 17 gm HSPRN PRN ORAL Constipation 03/25/20 16:00 04/24/20 15:59 Triamcinolone Acetonide (Kenalog) 1 applic THREE TIMES A DAY TOPIC 03/26/20 17:00 06/24/20 16:59 03/29/20 13:26 Zolpidem Tartrate (Ambien) 5 mg HSPRN PRN ORAL Insomnia 03/25/20 16:00 04/01/20 15:59 Allergies: Coded Allergies: DIAZEPAM (Verified Allergy, Unknown, 10/07/11) HYDROCODONE (Verified Allergy, Unknown, 07/07/10) MINOXIDIL (Verified Allergy, Unknown, 07/07/10) PENICILLINS (Unverified Allergy, Unknown, 03/26/20) tolerates cephalosporin NAME ALERT (Verified Adverse Reaction, Unknown, 07/13/08) Subjective Awake, alert, responsive, denies any chest pain or shortness of breath, complain about sore throat, decreased itching. Objective Last Vital Signs Date Time Temp Pulse Resp B/P (MAP) Pulse Ox O2 Delivery O2 Flow Rate FiO2 03/29/20 12:00 97.5 75 18 120/86 (97) 98 03/29/20 09:00 Room Air Intake and Output 03/28/20 03/29/20 19:00 07:00 Intake Total 360 ml 400 ml Balance 360 ml 400 ml Intake Oral 360 ml 400 ml # Voids 2 4 Objective General: No acute distress, awake and alert HEENT: NCAT, sclera anicteric, PERRL, EOMI. Neck: Supple, no significant jugular venous distention, Lungs: Fair inspiratory effort, clear to auscultation bilaterally, no Wheeze or Rales. Heart: Regular rate and rhythm, normal S1/S2, no murmurs Abdomen: soft, nontender, nondistended. Normoactive bowel sounds. / Rectal: Refused and deferred. Extremities: No Cyanosis , clubbing decreased bilateral lower extremities edema , lateral lower extremity venous stasis with hyperpigmentation. Neuro: A&O x 3, Able to move all extremities Skin: warm, diffuse skin rash. Psych: Normal mood and affect Assessment/Plan Assessment/Plan ASSESSMENT: This is an 84-year-old female. 1. Bilateral lower extremities edema. 2. Acute on chronic renal failure. 3. Congestive heart failure. 4. Gastroesophageal reflux disease. 5. Diabetes type 2. 6. Anemia. 7. Hypertension. 8. Cerebrovascular disease. 9. Diabetes. 10. Gout. 11. Cardiomyopathy. TREATMENT: 1. Bilateral L > R lower extremity edema. A venous duplex Doppler=neg DVT. ABX=keflex per ID=Dr Moss 2. Acute on chronic renal failure. A Nephrology consultation has been obtained with Dr. Rafael Castillo. 3. Congestive heart failure. Cardiology consultation has been obtained with Dr. Pierce. 4. Gastroesophageal reflux disease. Continue Protonix as above. 5. Diabetes type 2. A NovoLog sliding scale has been instituted. 6. Anemia. 7. Hypertension. Continue metoprolol as above. 8. Cerebrovascular disease. 9. Obesity. 10. Gout. Continue allopurinol as above. 11. History of cardiomyopathy 12. Discharge to [facility] today Christopher Villanueva MD March 29, 2020 16:34
[2020-03-29 20:00] VITALS: BP 137/74
[2020-03-30] VITALS: BP 134/74
[2020-03-30 04:00] VITALS: BP 129/74
[2020-03-30] MEDS: NovoLOG Insulin Flexpen SUBQ SCH ×4 (06:23→21:00)
[2020-03-30 08:00] VITALS: BP 147/80
--- NOTE | 2020-03-30 08:44 | Pulmonology Progress Note ---
Subjective Allergies: Coded Allergies: DIAZEPAM (Verified Allergy, Unknown, 10/07/11) HYDROCODONE (Verified Allergy, Unknown, 07/07/10) MINOXIDIL (Verified Allergy, Unknown, 07/07/10) PENICILLINS (Unverified Allergy, Unknown, 03/26/20) tolerates cephalosporin NAME ALERT (Verified Adverse Reaction, Unknown, 07/13/08) Subjective on RA pulse ox stable no fevers still significant edema BLE K-5.5 this am creat slowly trending down Objective Last 24 Hour Vital Signs Date Time Temp Pulse Resp B/P (MAP) Pulse Ox O2 Delivery O2 Flow Rate FiO2 03/30/20 08:00 96.8 72 18 147/80 (102) 97 03/30/20 04:00 97.8 74 18 129/74 (92) 98 03/30/20 00:00 98.3 74 20 134/74 (94) 98 03/29/20 21:38 Room Air 03/29/20 20:00 98.7 74 18 137/74 (95) 98 03/29/20 16:00 97.9 67 18 140/62 (88) 99 03/29/20 12:00 97.5 75 18 120/86 (97) 98 03/29/20 09:00 Room Air 03/29/20 08:44 85 145/74 Intake and Output 03/29/20 03/30/20 19:00 07:00 Intake Total 360 ml Balance 360 ml Intake Oral 360 ml # Voids 2 General Appearance: other - obese AA female in NAD HEENT: normocephalic, atraumatic, anicteric, mucous membranes moist Respiratory: chest wall non-tender, lungs clear, no respiratory distress, no accessory muscle use Cardiovascular: normal rate Abdomen: normal bowel sounds, soft, non tender - obese Extremities: other - edema +2 BLE from forest down , Skin: other - LE with hyperpigmentation.venous staisis changes 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: 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 grossly normal, alert, oriented x 3, responsive Lymphatic: no neck adenopathy Musculoskeletal: normal muscle bulk Laboratory Tests 03/30/20 06:00: Sodium Level [Pending], Potassium Level [Pending], Chloride Level [Pending], Carbon Dioxide Level [Pending], Blood Urea Nitrogen [Pending], Creatinine [ Pending], Estimat Glomerular Filtration Rate [Pending], Glucose Level [Pending] , Calcium Level [Pending] Current Medications Medications (Trade) Dose Ordered Sig/Liss Route PRN Reason Start Time Stop Time Status Last Admin Dose Admin Acetaminophen (Tylenol) 650 mg Q4H PRN ORAL fever 03/25/20 16:00 04/24/20 15:59 Allopurinol (Zyloprim) 100 mg DAILY ORAL 03/26/20 09:00 04/25/20 08:59 03/29/20 08:45 Ammonium Lactate (Lac Hydrin) 1 applic TWICE A DAY TOPIC 03/27/20 18:00 06/25/20 17:59 03/29/20 17:42 Aspirin (Ecotrin) 325 mg DAILY ORAL 03/26/20 09:00 05/10/20 08:59 03/29/20 08:45 Cephalexin (Keflex) 250 mg Q12HR ORAL 03/27/20 21:00 03/30/20 21:59 03/29/20 21:23 Cetylpyridinium Chloride (Cepacol) 1 lozg Q4H PRN ALBA sore throat 03/29/20 10:45 06/27/20 10:44 03/29/20 10:53 Dextrose (Dextrose 50%) 25 ml Q30M PRN IV Hypoglycemia 03/25/20 16:00 06/23/20 15:59 Dextrose (Dextrose 50%) 50 ml Q30M PRN IV Hypoglycemia 03/25/20 16:00 06/23/20 15:59 Diphenhydramine HCl (Benadryl Cream) 1 applic TID TOPIC 03/26/20 18:00 04/25/20 17:59 03/29/20 17:42 Diphenhydramine HCl (Benadryl) 25 mg Q6H PRN ORAL Itching 03/28/20 12:15 04/27/20 12:14 Gabapentin (Neurontin) 400 mg TID ORAL 03/25/20 20:00 04/24/20 19:59 03/29/20 17:40 Heparin Sodium (Porcine) (Heparin 5000 units/ml) 5,000 units EVERY 12 HOURS SUBQ 03/25/20 21:00 05/09/20 20:59 03/27/20 21:00 Hydroxyzine HCl (Atarax) 25 mg EVERY 8 HOURS PRN ORAL Itching 03/28/20 12:30 04/24/20 23:44 Insulin Aspart (NovoLOG) BEFORE MEALS AND HS SUBQ 03/25/20 16:30 06/23/20 16:29 Metoprolol Succinate (Toprol XL) 25 mg DAILY ORAL 03/26/20 09:00 06/24/20 08:59 03/29/20 08:44 Ondansetron HCl (Zofran) 4 mg Q6H PRN IVP Nausea & Vomiting 03/25/20 16:00 04/24/20 15:59 Oxycodone HCl (Roxicodone) 15 mg Q8H PRN ORAL Severe Pain (Pain Scale 7-10) 03/25/20 19:45 04/01/20 19:44 03/29/20 16:22 Polyethylene Glycol (Miralax) 17 gm HSPRN PRN ORAL Constipation 03/25/20 16:00 04/24/20 15:59 Triamcinolone Acetonide (Kenalog) 1 applic THREE TIMES A DAY TOPIC 03/26/20 17:00 06/24/20 16:59 03/29/20 17:42 Zolpidem Tartrate (Ambien) 5 mg HSPRN PRN ORAL Insomnia 03/25/20 16:00 04/01/20 15:59 Assessment/Plan Assessment/Plan ASSESSMENT Asthma Suspected COVID-19 infection -ruled out MORGAN on CKD CV disease with history of CVA x3 DM HTN Hypertension CHF with diastolic dysfunction Leg edema with mild cellulitis Chronic dermatitis with some flare up Morbid obesity Gout PLAN of CARE MS floor isolation SARS-CoV-2 by PCR 03/25 not detected O2 titrate to keep sat above 92% pulmonary toilet venous duplex BLE negative oral Keflex as per ID recommendation for mild cellulitis Echo with pEF 55% continue beta-blockade monitor renal paramerts, lytes, avoid nephrotoxic, creat slowly trending down to baseline treat hyperkalemia today with Kayexalate fup with further nephro recs BS management with SSI supportive care: antipruritic prn dc plan in progress case discussed and evaluated by supervising physician Princess Chavez NP March 30, 2020 08:44
[2020-03-30] MEDS: oxyCODONE 15mg IR tab ORAL PRN ×2 (08:45→21:19)
[2020-03-30] MEDS: Heparin 5000 units/ml inj SUBQ SCH ×2 (08:49→21:00)
[2020-03-30] MEDS: Triamcinolone 0.1% 15gm Cr TOPIC SCH ×3 (09:00→18:00)
[2020-03-30] MEDS: Lac Hydrin 12% Lotion 8oz TOPIC SCH ×2 (09:00→18:00)
[2020-03-30] MEDS: DiphenhydrAMINE & Zinc 28g Cream TOPIC SCH ×3 (09:00→18:00)
[2020-03-30 09:33] LABS: ANION GAP 6 mmol/L (5-15); BLOOD UREA NITROGEN 21 mg/dL (7-18); CALCIUM 8.3 MG/DL (8.5-10.1); CARBON DIOXIDE 25 MMOL/L (21-32); CHLORIDE 110 MMOL/L (98-107); CREATININE 1.9 MG/DL (0.55-1.30); POTASSIUM 5.5 MMOL/L (3.5-5.1); SODIUM 141 MMOL/L (136-145)
[2020-03-30] MEDS: Aspirin EC 325mg tab ORAL SCH (09:44)
[2020-03-30] MEDS: Allopurinol 100mg Tab ORAL SCH (09:44)
[2020-03-30] MEDS: Cephalexin 250mg Cap ORAL SCH ×2 (09:44→21:17)
[2020-03-30] MEDS: Metoprolol Succinate XL 25mg tab ORAL SCH (09:45)
[2020-03-30] MEDS ORDERED: Sodium Polystyrene Sulfonate 15gm Powder ORAL SCH (10:30)
[2020-03-30 12:00] VITALS: BP 114/55
--- NOTE | 2020-03-30 12:29 | Internal Med Progress Note ---
Subjective Date of Service: March 30, 2020 Physician Name Aníbal Cuellar Attending Physician Christopher Villanueva MD Current Medications Medications (Trade) Dose Ordered Sig/Liss Route PRN Reason Start Time Stop Time Status Last Admin Dose Admin Acetaminophen (Tylenol) 650 mg Q4H PRN ORAL fever 03/25/20 16:00 04/24/20 15:59 Allopurinol (Zyloprim) 100 mg DAILY ORAL 03/26/20 09:00 04/25/20 08:59 03/30/20 09:44 Ammonium Lactate (Lac Hydrin) 1 applic TWICE A DAY TOPIC 03/27/20 18:00 06/25/20 17:59 03/29/20 17:42 Aspirin (Ecotrin) 325 mg DAILY ORAL 03/26/20 09:00 05/10/20 08:59 03/30/20 09:44 Cephalexin (Keflex) 250 mg Q12HR ORAL 03/27/20 21:00 03/30/20 21:59 03/30/20 09:44 Cetylpyridinium Chloride (Cepacol) 1 lozg Q4H PRN ALBA sore throat 03/29/20 10:45 06/27/20 10:44 03/29/20 10:53 Dextrose (Dextrose 50%) 25 ml Q30M PRN IV Hypoglycemia 03/25/20 16:00 06/23/20 15:59 Dextrose (Dextrose 50%) 50 ml Q30M PRN IV Hypoglycemia 03/25/20 16:00 06/23/20 15:59 Diphenhydramine HCl (Benadryl Cream) 1 applic TID TOPIC 03/26/20 18:00 04/25/20 17:59 03/30/20 09:00 Diphenhydramine HCl (Benadryl) 25 mg Q6H PRN ORAL Itching 03/28/20 12:15 04/27/20 12:14 Gabapentin (Neurontin) 400 mg TID ORAL 03/25/20 20:00 04/24/20 19:59 03/30/20 09:43 Heparin Sodium (Porcine) (Heparin 5000 units/ml) 5,000 units EVERY 12 HOURS SUBQ 03/25/20 21:00 05/09/20 20:59 03/27/20 21:00 Hydroxyzine HCl (Atarax) 25 mg EVERY 8 HOURS PRN ORAL Itching 03/28/20 12:30 04/24/20 23:44 Insulin Aspart (NovoLOG) BEFORE MEALS AND HS SUBQ 03/25/20 16:30 06/23/20 16:29 Metoprolol Succinate (Toprol XL) 25 mg DAILY ORAL 03/26/20 09:00 06/24/20 08:59 03/30/20 09:45 Ondansetron HCl (Zofran) 4 mg Q6H PRN IVP Nausea & Vomiting 03/25/20 16:00 04/24/20 15:59 Oxycodone HCl (Roxicodone) 15 mg Q8H PRN ORAL Severe Pain (Pain Scale 7-10) 03/25/20 19:45 04/01/20 19:44 03/30/20 08:45 Polyethylene Glycol (Miralax) 17 gm HSPRN PRN ORAL Constipation 03/25/20 16:00 04/24/20 15:59 Triamcinolone Acetonide (Kenalog) 1 applic THREE TIMES A DAY TOPIC 03/26/20 17:00 06/24/20 16:59 03/30/20 09:00 Zolpidem Tartrate (Ambien) 5 mg HSPRN PRN ORAL Insomnia 03/25/20 16:00 04/01/20 15:59 Allergies: Coded Allergies: DIAZEPAM (Verified Allergy, Unknown, 10/07/11) HYDROCODONE (Verified Allergy, Unknown, 07/07/10) MINOXIDIL (Verified Allergy, Unknown, 07/07/10) PENICILLINS (Unverified Allergy, Unknown, 03/26/20) tolerates cephalosporin NAME ALERT (Verified Adverse Reaction, Unknown, 07/13/08) ROS Limited/Unobtainable: No Constitutional: Reports: no symptoms HEENT: Reports: no symptoms Cardiovascular: Reports: no symptoms Respiratory: Reports: no symptoms Gastrointestinal/Abdominal: Reports: no symptoms Genitourinary: Reports: no symptoms Neurologic/Psychiatric: Reports: no symptoms Subjective 84 YO F admitted with edema of LLE. Now acute on chronic renal failure. Cover for Int Saúl-Dr Villanueva Objective Last Vital Signs Date Time Temp Pulse Resp B/P (MAP) Pulse Ox O2 Delivery O2 Flow Rate FiO2 03/30/20 09:45 72 147/80 03/30/20 08:00 96.8 18 97 03/29/20 21:38 Room Air Laboratory Tests Test 03/30/20 06:00 Sodium Level 141 MMOL/L (136-145) Potassium Level 5.5 MMOL/L (3.5-5.1) H Chloride Level 110 MMOL/L (98-107) H Carbon Dioxide Level 25 MMOL/L (21-32) Anion Gap 6 mmol/L (5-15) Blood Urea Nitrogen 21 mg/dL (7-18) H Creatinine 1.9 MG/DL (0.55-1.30) H Estimat Glomerular Filtration Rate 30.4 mL/min (>60) Glucose Level 71 MG/DL (74-106) L Calcium Level 8.3 MG/DL (8.5-10.1) L Intake and Output 03/29/20 03/30/20 19:00 07:00 Intake Total 360 ml Balance 360 ml Intake Oral 360 ml # Voids 2 Objective PHYSICAL EXAMINATION: GENERAL: Patient is well-developed, well-nourished obese female, in no apparent distress. HEENT: Eyes, pupils are equal and responsive to light and accommodation. Extraocular movements are intact. NECK: Supple without lymphadenopathy. CHEST: Lungs are clear to auscultation bilaterally without wheezes or rales. CARDIOVASCULAR: Regular rate. S1-S2 are normal without murmurs, rubs, or gallops. ABDOMEN: Soft, nontender, nondistended. Positive bowel sounds. No evidence of hepatosplenomegaly. Currently, no rebound or guarding. EXTREMITIES: Left leg is swollen when compared to the right. There is 2+ pitting edema on the left. Otherwise, without clubbing or cyanosis. RECTAL/GENITAL: Not performed. NEUROLOGIC: Cranial nerves II through XII are grossly intact without focal deficits. Motor strength is 5/5 bilaterally. Deep tendon reflexes are 2+ plantar. Assessment/Plan Assessment/Plan ASSESSMENT: This is an 84-year-old female. 1. Left lower extremity edema. 2. Acute on chronic renal failure. 3. Congestive heart failure. 4. Gastroesophageal reflux disease. 5. Diabetes type 2. 6. Anemia. 7. Hypertension. 8. Cerebrovascular disease. 9. Diabetes. 10. Gout. 11. Cardiomyopathy. TREATMENT: 1. Left lower extremity edema. A venous duplex Doppler=neg DVT. ABX=keflex per ID=Dr Moss 2. Acute on chronic renal failure. A Nephrology consultation has been obtained with Dr. Rafael Castillo. 3. Congestive heart failure. Cardiology consultation has been obtained with Dr. Pierce. 4. Gastroesophageal reflux disease. Continue Protonix as above. 5. Diabetes type 2. A NovoLog sliding scale has been instituted. 6. Anemia. 7. Hypertension. Continue metoprolol as above. 8. Cerebrovascular disease. 9. Obesity. 10. Gout. Continue allopurinol as above. 11. History of cardiomyopathy 12. Discharge to [facility] when bed available. Aníbal Cuellar MD March 30, 2020 12:29
--- NOTE | 2020-03-30 12:35 | Nephrology Progress Note ---
Assessment/Plan Problem List: (1) Acute on chronic renal insufficiency Assessment: better (2) Gout (3) HTN (hypertension) (4) Diabetes mellitus (5) Gastric cancer (6) Anemia (7) Suspected COVID-19 virus infection (8) Peripheral edema Assessment PTH is ok Plan hold diuretics follow BMP Subjective Subjective feels ok Objective Objective Last 24 Hour Vital Signs Date Time Temp Pulse Resp B/P (MAP) Pulse Ox O2 Delivery O2 Flow Rate FiO2 03/30/20 09:45 72 147/80 03/30/20 08:00 96.8 72 18 147/80 (102) 97 03/30/20 04:00 97.8 74 18 129/74 (92) 98 03/30/20 00:00 98.3 74 20 134/74 (94) 98 03/29/20 21:38 Room Air 03/29/20 20:00 98.7 74 18 137/74 (95) 98 03/29/20 16:00 97.9 67 18 140/62 (88) 99 Intake and Output 03/29/20 03/30/20 18:59 06:59 Intake Total 360 ml Balance 360 ml Intake Oral 360 ml # Voids 2 Laboratory Tests 03/30/20 06:00: Sodium Level 141, Potassium Level 5.5H, Chloride Level 110H, Carbon Dioxide Level 25, Anion Gap 6, Blood Urea Nitrogen 21H, Creatinine 1.9H, Estimat Glomerular Filtration Rate 30.4, Glucose Level 71L, Calcium Level 8.3L Height (Feet): 5 Height (Inches): 3.00 Weight (Pounds): 234 Cardiovascular: normal rate Respiratory/Chest: lungs clear Extremities: moderate edema Amor Flores MD March 30, 2020 12:35
--- NOTE | 2020-03-30 15:04 | Infectious Diseases Prog Note ---
Assessment/Plan Assessment/Plan Assessment: Lung opacities- doubt PNA, probably mild volume overload- COVID neg x1 -03/27 CXR: Subtle perihilar and peripheral-based interstitial opacities, persistent but decreased compared to the prior exam. Although findings may be related to fluid overload/CHF, the possibility of multifocal pneumonia (including viral pneumonia ) is not excluded and correlation with clinical findings is recommended. -03/25 CXR: Subtle perihilar and peripheral-based interstitial opacities. Although findings may be related to fluid overload/CHF, possibility of multifocal pneumonia (including viral pneumonia) is not excluded and correlation with clinical findings is recommended. Follow-up recommended. -03/25 SARS COV2 PCR neg Afebrile Mild leukopenia (chronic) -u/a neg -Bcx NTD L leg swelling-mild cellulitis -V duplex: No DVT chronic dermatitis- flare MORGAN on CKD; improving HTN Asthma Dm2 GERD CVA x3 morbid obesity gout cardiomyopathy s/p cholecystectomy [facility] Plan: -Continue PO Keflex #03/12 for mild cellulitis -f/u cx -Monitor CBC/CMP, temperature -COVID19 neg x1- ok to dc isolation -Benadryl and triamcinolone cream from arms and legs Thank you for consulting [facility]. Will continue to follow along with you. Subjective Allergies: Coded Allergies: DIAZEPAM (Verified Allergy, Unknown, 10/07/11) HYDROCODONE (Verified Allergy, Unknown, 07/07/10) MINOXIDIL (Verified Allergy, Unknown, 07/07/10) PENICILLINS (Unverified Allergy, Unknown, 03/26/20) tolerates cephalosporin NAME ALERT (Verified Adverse Reaction, Unknown, 07/13/08) Subjective afebrile at RA Cr improving Objective Vital Signs Last 24 Hour Vital Signs Date Time Temp Pulse Resp B/P (MAP) Pulse Ox O2 Delivery O2 Flow Rate FiO2 03/30/20 12:00 96.8 79 20 114/55 (74) 95 03/30/20 09:45 72 147/80 03/30/20 09:00 Room Air 03/30/20 08:00 96.8 72 18 147/80 (102) 97 03/30/20 04:00 97.8 74 18 129/74 (92) 98 5/23/20 00:00 98.3 74 20 134/74 (94) 98 03/29/20 21:38 Room Air 03/29/20 20:00 98.7 74 18 137/74 (95) 98 03/29/20 16:00 97.9 67 18 140/62 (88) 99 Height (Feet): 5 Height (Inches): 3.00 Weight (Pounds): 234 Objective Gen: no respiratory distress Head: normocephalic Lungs: no tachypnea or use of accessory resp muscles Abd: not distended Laboratory Tests Test 03/30/20 06:00 Sodium Level 141 MMOL/L (136-145) Potassium Level 5.5 MMOL/L (3.5-5.1) H Chloride Level 110 MMOL/L (98-107) H Carbon Dioxide Level 25 MMOL/L (21-32) Anion Gap 6 mmol/L (5-15) Blood Urea Nitrogen 21 mg/dL (7-18) H Creatinine 1.9 MG/DL (0.55-1.30) H Estimat Glomerular Filtration Rate 30.4 mL/min (>60) Glucose Level 71 MG/DL (74-106) L Calcium Level 8.3 MG/DL (8.5-10.1) L Current Medications Medications (Trade) Dose Ordered Sig/Liss Route PRN Reason Start Time Stop Time Status Last Admin Dose Admin Acetaminophen (Tylenol) 650 mg Q4H PRN ORAL fever 03/25/20 16:00 04/24/20 15:59 Allopurinol (Zyloprim) 100 mg DAILY ORAL 03/26/20 09:00 04/25/20 08:59 03/30/20 09:44 Ammonium Lactate (Lac Hydrin) 1 applic TWICE A DAY TOPIC 03/27/20 18:00 06/25/20 17:59 03/29/20 17:42 Aspirin (Ecotrin) 325 mg DAILY ORAL 03/26/20 09:00 05/10/20 08:59 03/30/20 09:44 Cephalexin (Keflex) 250 mg Q12HR ORAL 03/27/20 21:00 03/30/20 21:59 03/30/20 09:44 Cetylpyridinium Chloride (Cepacol) 1 lozg Q4H PRN ALBA sore throat 03/29/20 10:45 06/27/20 10:44 03/29/20 10:53 Dextrose (Dextrose 50%) 25 ml Q30M PRN IV Hypoglycemia 03/25/20 16:00 06/23/20 15:59 Dextrose (Dextrose 50%) 50 ml Q30M PRN IV Hypoglycemia 03/25/20 16:00 06/23/20 15:59 Diphenhydramine HCl (Benadryl Cream) 1 applic TID TOPIC 03/26/20 18:00 04/25/20 17:59 03/29/20 17:42 Diphenhydramine HCl (Benadryl) 25 mg Q6H PRN ORAL Itching 03/28/20 12:15 04/27/20 12:14 Gabapentin (Neurontin) 400 mg TID ORAL 03/25/20 20:00 04/24/20 19:59 03/30/20 14:04 Heparin Sodium (Porcine) (Heparin 5000 units/ml) 5,000 units EVERY 12 HOURS SUBQ 03/25/20 21:00 05/09/20 20:59 03/27/20 21:00 Hydroxyzine HCl (Atarax) 25 mg EVERY 8 HOURS PRN ORAL Itching 03/28/20 12:30 04/24/20 23:44 Insulin Aspart (NovoLOG) BEFORE MEALS AND HS SUBQ 03/25/20 16:30 06/23/20 16:29 Metoprolol Succinate (Toprol XL) 25 mg DAILY ORAL 03/26/20 09:00 06/24/20 08:59 03/30/20 09:45 Ondansetron HCl (Zofran) 4 mg Q6H PRN IVP Nausea & Vomiting 03/25/20 16:00 04/24/20 15:59 Oxycodone HCl (Roxicodone) 15 mg Q8H PRN ORAL Severe Pain (Pain Scale 7-10) 03/25/20 19:45 04/01/20 19:44 03/30/20 08:45 Polyethylene Glycol (Miralax) 17 gm HSPRN PRN ORAL Constipation 03/25/20 16:00 04/24/20 15:59 Triamcinolone Acetonide (Kenalog) 1 applic THREE TIMES A DAY TOPIC 03/26/20 17:00 06/24/20 16:59 03/29/20 17:42 Zolpidem Tartrate (Ambien) 5 mg HSPRN PRN ORAL Insomnia 03/25/20 16:00 04/01/20 15:59 Lillian Moss M.D. March 30, 2020 15:04
[2020-03-30 16:00] VITALS: BP 120/61
--- NOTE | 2020-03-30 16:41 | Cardiology Progress Note ---
Assessment/Plan Assessment/Plan stable from cardiac standpoint Subjective Subjective The patient is eating lunch during visit she reports feeling much better, and her edema is much better Objective Last 24 Hour Vital Signs Date Time Temp Pulse Resp B/P (MAP) Pulse Ox O2 Delivery O2 Flow Rate FiO2 03/30/20 12:00 96.8 79 20 114/55 (74) 95 03/30/20 09:45 72 147/80 03/30/20 09:00 Room Air 03/30/20 08:00 96.8 72 18 147/80 (102) 97 03/30/20 04:00 97.8 74 18 129/74 (92) 98 03/30/20 00:00 98.3 74 20 134/74 (94) 98 03/29/20 21:38 Room Air 03/29/20 20:00 98.7 74 18 137/74 (95) 98 General Appearance: no apparent distress EENT: PERRL/EOMI Neck: no JVD Rhythm: NSR Cardiovascular: normal rate, systolic murmur Respiratory/Chest: lungs clear Abdomen: no organomegaly Extremities: moderate edema Intake and Output 03/29/20 03/30/20 19:00 07:00 Intake Total 360 ml Balance 360 ml Intake Oral 360 ml # Voids 2 Laboratory Tests Test 03/30/20 06:00 Sodium Level 141 MMOL/L (136-145) Potassium Level 5.5 MMOL/L (3.5-5.1) H Chloride Level 110 MMOL/L (98-107) H Carbon Dioxide Level 25 MMOL/L (21-32) Anion Gap 6 mmol/L (5-15) Blood Urea Nitrogen 21 mg/dL (7-18) H Creatinine 1.9 MG/DL (0.55-1.30) H Estimat Glomerular Filtration Rate 30.4 mL/min (>60) Glucose Level 71 MG/DL (74-106) L Calcium Level 8.3 MG/DL (8.5-10.1) L Kelsi Weinberg MD March 30, 2020 16:41
[2020-03-30 20:00] VITALS: BP 142/71
[2020-03-31] VITALS: BP 144/73
[2020-03-31 04:00] VITALS: BP 148/79
[2020-03-31] MEDS: NovoLOG Insulin Flexpen SUBQ SCH ×5 (05:45→21:00)
[2020-03-31 06:37] LABS: HEMATOCRIT 33.1 % (37.0-47.0); HEMOGLOBIN 10.7 G/DL (12.0-16.0); MEAN CORPUSCULAR VOLUME 94 FL (80-99); PLATELET COUNT 144 K/UL (150-450); RED BLOOD COUNT 3.54 M/UL (4.20-5.40); RED CELL DISTRIBUTION WIDTH 15.6 % (11.6-14.8); WHITE BLOOD COUNT 3.3 K/UL (4.8-10.8)
[2020-03-31 06:50] LABS: ANION GAP 7 mmol/L (5-15); BLOOD UREA NITROGEN 20 mg/dL (7-18); CALCIUM 8.3 MG/DL (8.5-10.1); CARBON DIOXIDE 26 MMOL/L (21-32); CHLORIDE 110 MMOL/L (98-107); CREATININE 2.1 MG/DL (0.55-1.30); POTASSIUM 4.6 MMOL/L (3.5-5.1); SODIUM 143 MMOL/L (136-145)
--- NOTE | 2020-03-31 07:42 | Pulmonology Progress Note ---
Subjective ROS Limited/Unobtainable: No Allergies: Coded Allergies: DIAZEPAM (Verified Allergy, Unknown, 10/07/11) HYDROCODONE (Verified Allergy, Unknown, 07/07/10) MINOXIDIL (Verified Allergy, Unknown, 07/07/10) PENICILLINS (Unverified Allergy, Unknown, 03/26/20) tolerates cephalosporin NAME ALERT (Verified Adverse Reaction, Unknown, 07/13/08) Subjective on RA pulse ox stable no fevers still significant edema BLE K stable after replacement creat 2.1 this am Objective Last 24 Hour Vital Signs Date Time Temp Pulse Resp B/P (MAP) Pulse Ox O2 Delivery O2 Flow Rate FiO2 03/31/20 04:00 98.7 80 18 148/79 (102) 99 03/31/20 00:00 98.0 78 20 144/73 (96) 97 03/30/20 21:00 Room Air 03/30/20 20:00 98.2 75 22 142/71 (94) 98 03/30/20 16:00 98.2 73 18 120/61 (80) 98 03/30/20 12:00 96.8 79 20 114/55 (74) 95 03/30/20 09:45 72 147/80 03/30/20 09:00 Room Air 03/30/20 08:00 96.8 72 18 147/80 (102) 97 Intake and Output 03/30/20 03/31/20 19:00 07:00 Intake Total 300 ml 500 ml Balance 300 ml 500 ml Intake Oral 300 ml 500 ml # Voids 1 3 # Bowel Movements 1 Objective General Appearance: other - obese AA female in NAD HEENT: normocephalic, atraumatic, anicteric, mucous membranes moist Respiratory: chest wall non-tender, lungs clear, no respiratory distress, no accessory muscle use Cardiovascular: normal rate Abdomen: normal bowel sounds, soft, non tender - obese Extremities: other - edema +2 BLE from forest down , Skin: other - LE with hyperpigmentation.venous staisis changes Neurologic: 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 catcher II-XII grossly normal, alert, oriented x 3, responsive Lymphatic: no neck adenopathy Musculoskeletal: normal muscle bulk Laboratory Tests 03/31/20 06:00: White Blood Count 3.3L, Red Blood Count 3.54L, Hemoglobin 10.7L, Hematocrit 33.1L, Mean Corpuscular Volume 94, Mean Corpuscular Hemoglobin 30.3, Mean Corpuscular Hemoglobin Concent 32.4, Red Cell Distribution Width 15.6H, Platelet Count 144L, Mean Platelet Volume 5.2L, Neutrophils (%) (Auto) , Lymphocytes (%) (Auto) , Monocytes (%) (Auto) , Eosinophils (%) (Auto) , Basophils (%) (Auto) , Neutrophils % (Manual) [Pending], Lymphocytes % (Manual) [Pending], Platelet Estimate [Pending], Platelet Morphology [Pending], Sodium Level 143, Potassium Level 4.6, Chloride Level 110H, Carbon Dioxide Level 26, Anion Gap 7, Blood Urea Nitrogen 20H, Creatinine 2.1H, Estimat Glomerular Filtration Rate 27.0, Glucose Level 82, Calcium Level 8.3L Current Medications Medications (Trade) Dose Ordered Sig/Liss Route PRN Reason Start Time Stop Time Status Last Admin Dose Admin Acetaminophen (Tylenol) 650 mg Q4H PRN ORAL fever 03/25/20 16:00 04/24/20 15:59 Allopurinol (Zyloprim) 100 mg DAILY ORAL 03/26/20 09:00 04/25/20 08:59 03/30/20 09:44 Ammonium Lactate (Lac Hydrin) 1 applic TWICE A DAY TOPIC 03/27/20 18:00 06/25/20 17:59 03/29/20 17:42 Aspirin (Ecotrin) 325 mg DAILY ORAL 03/26/20 09:00 05/10/20 08:59 03/30/20 09:44 Cetylpyridinium Chloride (Cepacol) 1 lozg Q4H PRN ALBA sore throat 03/29/20 10:45 06/27/20 10:44 03/29/20 10:53 Dextrose (Dextrose 50%) 25 ml Q30M PRN IV Hypoglycemia 03/25/20 16:00 06/23/20 15:59 Dextrose (Dextrose 50%) 50 ml Q30M PRN IV Hypoglycemia 03/25/20 16:00 06/23/20 15:59 Diphenhydramine HCl (Benadryl Cream) 1 applic TID TOPIC 03/26/20 18:00 04/25/20 17:59 03/29/20 17:42 Diphenhydramine HCl (Benadryl) 25 mg Q6H PRN ORAL Itching 03/28/20 12:15 04/27/20 12:14 Gabapentin (Neurontin) 400 mg TID ORAL 03/25/20 20:00 04/24/20 19:59 03/30/20 18:16 Heparin Sodium (Porcine) (Heparin 5000 units/ml) 5,000 units EVERY 12 HOURS SUBQ 03/25/20 21:00 05/09/20 20:59 03/27/20 21:00 Hydroxyzine HCl (Atarax) 25 mg EVERY 8 HOURS PRN ORAL Itching 03/28/20 12:30 04/24/20 23:44 Insulin Aspart (NovoLOG) BEFORE MEALS AND HS SUBQ 03/25/20 16:30 06/23/20 16:29 Metoprolol Succinate (Toprol XL) 25 mg DAILY ORAL 03/26/20 09:00 06/24/20 08:59 03/30/20 09:45 Ondansetron HCl (Zofran) 4 mg Q6H PRN IVP Nausea & Vomiting 03/25/20 16:00 04/24/20 15:59 Oxycodone HCl (Roxicodone) 15 mg Q8H PRN ORAL Severe Pain (Pain Scale 7-10) 03/25/20 19:45 04/01/20 19:44 03/30/20 21:19 Polyethylene Glycol (Miralax) 17 gm HSPRN PRN ORAL Constipation 03/25/20 16:00 04/24/20 15:59 Triamcinolone Acetonide (Kenalog) 1 applic THREE TIMES A DAY TOPIC 03/26/20 17:00 06/24/20 16:59 03/29/20 17:42 Zolpidem Tartrate (Ambien) 5 mg HSPRN PRN ORAL Insomnia 03/25/20 16:00 04/01/20 15:59 Assessment/Plan Assessment/Plan ASSESSMENT Asthma Suspected COVID-19 infection -ruled out MORGAN on CKD CV disease with history of CVA x3 DM HTN Hypertension CHF with diastolic dysfunction Leg edema with mild cellulitis Chronic dermatitis with some flare up Morbid obesity Gout PLAN of CARE [facility] floor off isolation (per ID clearance) SARS-CoV-2 by PCR 03/25 not detected O2 titrate to keep sat above 92% pulmonary toilet venous duplex BLE negative oral Keflex as per ID recommendation for mild cellulitis Echo with pEF 55% continue beta-blockade monitor renal paramerts, lytes, avoid nephrotoxic, creat 2.1 this am s/p 03/30 Kayexalate, K stable this am fup with further nephro recs BS management with SSI supportive care: antipruritic prn dc plan in progress case discussed and evaluated by supervising physician Princess Chavez NP March 31, 2020 07:42
[2020-03-31 08:21] VITALS: BP 132/82
[2020-03-31] MEDS: Aspirin EC 325mg tab ORAL SCH (08:31)
[2020-03-31] MEDS: Allopurinol 100mg Tab ORAL SCH (08:31)
[2020-03-31] MEDS: Metoprolol Succinate XL 25mg tab ORAL SCH (08:31)
[2020-03-31] MEDS: Lac Hydrin 12% Lotion 8oz TOPIC SCH ×2 (08:32→17:07)
[2020-03-31] MEDS: Triamcinolone 0.1% 15gm Cr TOPIC SCH ×3 (08:32→17:07)
[2020-03-31] MEDS: DiphenhydrAMINE & Zinc 28g Cream TOPIC SCH ×3 (08:32→17:07)
[2020-03-31] MEDS: Heparin 5000 units/ml inj SUBQ SCH ×2 (08:33→20:45)
[2020-03-31 12:00] VITALS: BP 147/81
--- NOTE | 2020-03-31 14:54 | Internal Med Progress Note ---
Subjective Date of Service: March 31, 2020 Physician Name Aníbal Cuellar Attending Physician Christopher Villanueva MD Current Medications Medications (Trade) Dose Ordered Sig/Liss Route PRN Reason Start Time Stop Time Status Last Admin Dose Admin Acetaminophen (Tylenol) 650 mg Q4H PRN ORAL fever 03/25/20 16:00 04/24/20 15:59 Allopurinol (Zyloprim) 100 mg DAILY ORAL 03/26/20 09:00 04/25/20 08:59 03/31/20 08:31 Ammonium Lactate (Lac Hydrin) 1 applic TWICE A DAY TOPIC 03/27/20 18:00 06/25/20 17:59 03/31/20 08:32 Aspirin (Ecotrin) 325 mg DAILY ORAL 03/26/20 09:00 05/10/20 08:59 03/31/20 08:31 Cetylpyridinium Chloride (Cepacol) 1 lozg Q4H PRN ALBA sore throat 03/29/20 10:45 06/27/20 10:44 03/29/20 10:53 Dextrose (Dextrose 50%) 25 ml Q30M PRN IV Hypoglycemia 03/25/20 16:00 06/23/20 15:59 Dextrose (Dextrose 50%) 50 ml Q30M PRN IV Hypoglycemia 03/25/20 16:00 06/23/20 15:59 Diphenhydramine HCl (Benadryl Cream) 1 applic TID TOPIC 03/26/20 18:00 04/25/20 17:59 03/31/20 12:13 Diphenhydramine HCl (Benadryl) 25 mg Q6H PRN ORAL Itching 03/28/20 12:15 04/27/20 12:14 Gabapentin (Neurontin) 400 mg TID ORAL 03/25/20 20:00 04/24/20 19:59 03/31/20 12:16 Heparin Sodium (Porcine) (Heparin 5000 units/ml) 5,000 units EVERY 12 HOURS SUBQ 03/25/20 21:00 05/09/20 20:59 03/27/20 21:00 Hydroxyzine HCl (Atarax) 25 mg EVERY 8 HOURS PRN ORAL Itching 03/28/20 12:30 04/24/20 23:44 Insulin Aspart (NovoLOG) BEFORE MEALS AND HS SUBQ 03/25/20 16:30 06/23/20 16:29 Metoprolol Succinate (Toprol XL) 25 mg DAILY ORAL 03/26/20 09:00 06/24/20 08:59 03/31/20 08:31 Ondansetron HCl (Zofran) 4 mg Q6H PRN IVP Nausea & Vomiting 03/25/20 16:00 04/24/20 15:59 Oxycodone HCl (Roxicodone) 15 mg Q8H PRN ORAL Severe Pain (Pain Scale 7-10) 03/25/20 19:45 04/01/20 19:44 03/30/20 21:19 Polyethylene Glycol (Miralax) 17 gm HSPRN PRN ORAL Constipation 03/25/20 16:00 04/24/20 15:59 Triamcinolone Acetonide (Kenalog) 1 applic THREE TIMES A DAY TOPIC 03/26/20 17:00 06/24/20 16:59 03/31/20 12:13 Zolpidem Tartrate (Ambien) 5 mg HSPRN PRN ORAL Insomnia 03/25/20 16:00 04/01/20 15:59 Allergies: Coded Allergies: DIAZEPAM (Verified Allergy, Unknown, 10/07/11) HYDROCODONE (Verified Allergy, Unknown, 07/07/10) MINOXIDIL (Verified Allergy, Unknown, 07/07/10) PENICILLINS (Unverified Allergy, Unknown, 03/26/20) tolerates cephalosporin NAME ALERT (Verified Adverse Reaction, Unknown, 07/13/08) ROS Limited/Unobtainable: No Constitutional: Reports: no symptoms HEENT: Reports: no symptoms Cardiovascular: Reports: no symptoms Respiratory: Reports: no symptoms Gastrointestinal/Abdominal: Reports: no symptoms Genitourinary: Reports: no symptoms Neurologic/Psychiatric: Reports: no symptoms Subjective 84 YO F admitted with edema of LLE. Now acute on chronic renal failure. Cover for Int Saúl-Dr Villanueva Objective Last Vital Signs Date Time Temp Pulse Resp B/P (MAP) Pulse Ox O2 Delivery O2 Flow Rate FiO2 03/31/20 12:00 97.9 73 19 147/81 (103) 97 03/31/20 09:00 Room Air Laboratory Tests Test 03/31/20 06:00 White Blood Count 3.3 K/UL (4.8-10.8) L Red Blood Count 3.54 M/UL (4.20-5.40) L Hemoglobin 10.7 G/DL (12.0-16.0) L Hematocrit 33.1 % (37.0-47.0) L Mean Corpuscular Volume 94 FL (80-99) Mean Corpuscular Hemoglobin 30.3 PG (27.0-31.0) Mean Corpuscular Hemoglobin Concent 32.4 G/DL (32.0-36.0) Red Cell Distribution Width 15.6 % (11.6-14.8) H Platelet Count 144 K/UL (150-450) L Mean Platelet Volume 5.2 FL (6.5-10.1) L Neutrophils (%) (Auto) % (45.0-75.0) Lymphocytes (%) (Auto) % (20.0-45.0) Monocytes (%) (Auto) % (1.0-10.0) Eosinophils (%) (Auto) % (0.0-3.0) Basophils (%) (Auto) % (0.0-2.0) Differential Total Cells Counted 100 Neutrophils % (Manual) 46 % (45-75) Lymphocytes % (Manual) 33 % (20-45) Monocytes % (Manual) 13 % (1-10) H Eosinophils % (Manual) 6 % (0-3) H Basophils % (Manual) 2 % (0-2) Band Neutrophils 0 % (0-8) Platelet Estimate Decreased L Platelet Morphology Normal Hypochromasia 1+ Anisocytosis 1+ Sodium Level 143 MMOL/L (136-145) Potassium Level 4.6 MMOL/L (3.5-5.1) Chloride Level 110 MMOL/L (98-107) H Carbon Dioxide Level 26 MMOL/L (21-32) Anion Gap 7 mmol/L (5-15) Blood Urea Nitrogen 20 mg/dL (7-18) H Creatinine 2.1 MG/DL (0.55-1.30) H Estimat Glomerular Filtration Rate 27.0 mL/min (>60) Glucose Level 82 MG/DL (74-106) Calcium Level 8.3 MG/DL (8.5-10.1) L Intake and Output 03/30/20 03/31/20 19:00 07:00 Intake Total 300 ml 500 ml Balance 300 ml 500 ml Intake Oral 300 ml 500 ml # Voids 1 3 # Bowel Movements 1 Objective PHYSICAL EXAMINATION: GENERAL: Patient is well-developed, well-nourished obese female, in no apparent distress. HEENT: Eyes, pupils are equal and responsive to light and accommodation. Extraocular movements are intact. NECK: Supple without lymphadenopathy. CHEST: Lungs are clear to auscultation bilaterally without wheezes or rales. CARDIOVASCULAR: Regular rate. S1-S2 are normal without murmurs, rubs, or gallops. ABDOMEN: Soft, nontender, nondistended. Positive bowel sounds. No evidence of hepatosplenomegaly. Currently, no rebound or guarding. EXTREMITIES: Left leg is swollen when compared to the right. There is 2+ pitting edema on the left. Otherwise, without clubbing or cyanosis. RECTAL/GENITAL: Not performed. NEUROLOGIC: Cranial nerves II through XII are grossly intact without focal deficits. Motor strength is 5/5 bilaterally. Deep tendon reflexes are 2+ plantar. Assessment/Plan Assessment/Plan ASSESSMENT: This is an 84-year-old female. 1. Left lower extremity edema. 2. Acute on chronic renal failure. 3. Congestive heart failure. 4. Gastroesophageal reflux disease. 5. Diabetes type 2. 6. Anemia. 7. Hypertension. 8. Cerebrovascular disease. 9. Diabetes. 10. Gout. 11. Cardiomyopathy. TREATMENT: 1. Left lower extremity edema. A venous duplex Doppler=neg DVT. ABX=keflex per ID=Dr Moss 2. Acute on chronic renal failure. A Nephrology consultation has been obtained with Dr. Rafael Castillo. 3. Congestive heart failure. Cardiology consultation has been obtained with Dr. Pierce. 4. Gastroesophageal reflux disease. Continue Protonix as above. 5. Diabetes type 2. A NovoLog sliding scale has been instituted. 6. Anemia. 7. Hypertension. Continue metoprolol as above. 8. Cerebrovascular disease. 9. Obesity. 10. Gout. Continue allopurinol as above. 11. History of cardiomyopathy 12. Discharge to [facility] when bed available. Aníbal Cuellar MD March 31, 2020 14:53
[2020-03-31 16:00] VITALS: BP 137/78
--- NOTE | 2020-03-31 17:46 | Nephrology Progress Note ---
Assessment/Plan Problem List: (1) Acute on chronic renal insufficiency Assessment: worse (2) Gout (3) HTN (hypertension) (4) Diabetes mellitus (5) Gastric cancer (6) Anemia (7) Suspected COVID-19 virus infection (8) Peripheral edema Assessment PTH is ok Plan hold diuretics follow BMP Subjective Subjective all noted Objective Objective Last 24 Hour Vital Signs Date Time Temp Pulse Resp B/P (MAP) Pulse Ox O2 Delivery O2 Flow Rate FiO2 03/31/20 16:00 97.7 75 19 137/78 (97) 95 03/31/20 12:00 97.9 73 19 147/81 (103) 97 03/31/20 09:00 Room Air 03/31/20 08:31 90 132/82 03/31/20 08:21 98.3 90 20 132/82 (99) 96 03/31/20 04:00 98.7 80 18 148/79 (102) 99 03/31/20 00:00 98.0 78 20 144/73 (96) 97 03/30/20 21:00 Room Air 03/30/20 20:00 98.2 75 22 142/71 (94) 98 Intake and Output 03/30/20 03/31/20 19:00 07:00 Intake Total 300 ml 500 ml Balance 300 ml 500 ml Intake Oral 300 ml 500 ml # Voids 1 3 # Bowel Movements 1 Laboratory Tests 03/31/20 06:00: White Blood Count 3.3L, Red Blood Count 3.54L, Hemoglobin 10.7L, Hematocrit 33.1L, Mean Corpuscular Volume 94, Mean Corpuscular Hemoglobin 30.3, Mean Corpuscular Hemoglobin Concent 32.4, Red Cell Distribution Width 15.6H, Platelet Count 144L, Mean Platelet Volume 5.2L, Neutrophils (%) (Auto) , Lymphocytes (%) (Auto) , Monocytes (%) (Auto) , Eosinophils (%) (Auto) , Basophils (%) (Auto) , Differential Total Cells Counted 100, Neutrophils % ( Manual) 46, Lymphocytes % (Manual) 33, Monocytes % (Manual) 13H, Eosinophils % ( Manual) 6H, Basophils % (Manual) 2, Band Neutrophils 0, Platelet Estimate DecreasedL, Platelet Morphology Normal, Hypochromasia 1+, Anisocytosis 1+, Sodium Level 143, Potassium Level 4.6, Chloride Level 110H, Carbon Dioxide Level 26, Anion Gap 7, Blood Urea Nitrogen 20H, Creatinine 2.1H, Estimat Glomerular Filtration Rate 27.0, Glucose Level 82, Calcium Level 8.3L Height (Feet): 5 Height (Inches): 3.00 Weight (Pounds): 234 Amor Flores MD March 31, 2020 17:46
[2020-03-31 20:00] VITALS: BP 145/72
[2020-03-31] MEDS: oxyCODONE 15mg IR tab ORAL PRN (22:33)
[2020-04-01] VITALS: BP 144/78
[2020-04-01 03:45] VITALS: BP 145/72
[2020-04-01] MEDS: NovoLOG Insulin Flexpen SUBQ SCH ×4 (05:51→20:35)
[2020-04-01 06:32] LABS: BASOPHILS % (AUTO) 1.8 % (0.0-2.0); EOSINOPHILS % (AUTO) 5.4 % (0.0-3.0); HEMATOCRIT 38.5 % (37.0-47.0); HEMOGLOBIN 12.4 G/DL (12.0-16.0); LYMPHOCYTES % (AUTO) 30.7 % (20.0-45.0); MEAN CORPUSCULAR VOLUME 94 FL (80-99); MONOCYTES % (AUTO) 11.7 % (1.0-10.0); NEUTROPHILS % (AUTO) 50.3 % (45.0-75.0); PLATELET COUNT 156 K/UL (150-450); RED BLOOD COUNT 4.11 M/UL (4.20-5.40); RED CELL DISTRIBUTION WIDTH 15.8 % (11.6-14.8)
[2020-04-01 06:58] LABS: ANION GAP 7 mmol/L (5-15); BLOOD UREA NITROGEN 16 mg/dL (7-18); CALCIUM 8.9 MG/DL (8.5-10.1); CARBON DIOXIDE 26 MMOL/L (21-32); CHLORIDE 107 MMOL/L (98-107); CREATININE 1.9 MG/DL (0.55-1.30); SODIUM 140 MMOL/L (136-145)
[2020-04-01 08:00] VITALS: BP 153/67
[2020-04-01] MEDS: Allopurinol 100mg Tab ORAL SCH (08:58)
[2020-04-01] MEDS: Aspirin EC 325mg tab ORAL SCH (08:58)
[2020-04-01] MEDS: Metoprolol Succinate XL 25mg tab ORAL SCH (08:58)
[2020-04-01] MEDS: DiphenhydrAMINE & Zinc 28g Cream TOPIC SCH ×3 (09:00→18:06)
[2020-04-01] MEDS: Triamcinolone 0.1% 15gm Cr TOPIC SCH ×3 (09:00→18:06)
[2020-04-01] MEDS: Lac Hydrin 12% Lotion 8oz TOPIC SCH ×2 (09:00→18:06)
[2020-04-01] MEDS: Heparin 5000 units/ml inj SUBQ SCH ×2 (09:01→20:35)
--- NOTE | 2020-04-01 10:04 | Pulmonology Progress Note ---
Subjective ROS Limited/Unobtainable: No Allergies: Coded Allergies: DIAZEPAM (Verified Allergy, Unknown, 10/07/11) HYDROCODONE (Verified Allergy, Unknown, 07/07/10) MINOXIDIL (Verified Allergy, Unknown, 07/07/10) PENICILLINS (Unverified Allergy, Unknown, 03/26/20) tolerates cephalosporin NAME ALERT (Verified Adverse Reaction, Unknown, 07/13/08) Subjective on RA pulse ox stable no fevers still edema BLE K stable after replacement creat 1.9 Objective Last 24 Hour Vital Signs Date Time Temp Pulse Resp B/P (MAP) Pulse Ox O2 Delivery O2 Flow Rate FiO2 04/01/20 09:00 Room Air 04/01/20 08:58 81 153/67 04/01/20 08:00 97.9 81 20 153/67 (95) 93 04/01/20 03:45 98.1 72 18 145/72 (96) 98 04/01/20 00:00 98.5 79 18 144/78 (100) 95 03/31/20 21:00 Room Air 03/31/20 20:00 98.1 72 18 145/72 (96) 98 03/31/20 16:00 97.7 75 19 137/78 (97) 95 03/31/20 12:00 97.9 73 19 147/81 (103) 97 Intake and Output 03/31/20 04/01/20 19:00 07:00 Intake Total 800 ml 750 ml Balance 800 ml 750 ml Other 800 ml 750 ml # Voids 3 Objective General Appearance: other - obese AA female in NAD HEENT: normocephalic, atraumatic, anicteric, mucous membranes moist Respiratory: chest wall non-tender, lungs clear, no respiratory distress, no accessory muscle use Cardiovascular: normal rate Abdomen: normal bowel sounds, soft, non tender - obese Extremities: edema +2 BLE from knee down , Skin LE with hyperpigmentation.venous staisis changes 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, alert, oriented x 3, responsive Lymphatic: no neck adenopathy Musculoskeletal: normal muscle bulk Laboratory Tests 04/01/20 06:10: White Blood Count 4.0L, Red Blood Count 4.11L, Hemoglobin 12.4, Hematocrit 38.5 , Mean Corpuscular Volume 94, Mean Corpuscular Hemoglobin 30.1, Mean Corpuscular Hemoglobin Concent 32.1, Red Cell Distribution Width 15.8H, Platelet Count 156, Mean Platelet Volume 4.5L, Neutrophils (%) (Auto) 50.3, Lymphocytes (%) (Auto) 30.7, Monocytes (%) (Auto) 11.7H, Eosinophils (%) (Auto) 5.4H, Basophils (%) (Auto) 1.8, Sodium Level 140, Potassium Level 5.0, Chloride Level 107, Carbon Dioxide Level 26, Anion Gap 7, Blood Urea Nitrogen 16, Creatinine 1.9H, Estimat Glomerular Filtration Rate 30.4, Glucose Level 87, Calcium Level 8.9 Current Medications Medications (Trade) Dose Ordered Sig/Liss Route PRN Reason Start Time Stop Time Status Last Admin Dose Admin Acetaminophen (Tylenol) 650 mg Q4H PRN ORAL fever 03/25/20 16:00 04/24/20 15:59 Allopurinol (Zyloprim) 100 mg DAILY ORAL 03/26/20 09:00 04/25/20 08:59 04/01/20 08:58 Ammonium Lactate (Lac Hydrin) 1 applic TWICE A DAY TOPIC 03/27/20 18:00 06/25/20 17:59 04/01/20 09:00 Aspirin (Ecotrin) 325 mg DAILY ORAL 03/26/20 09:00 05/10/20 08:59 04/01/20 08:58 Cetylpyridinium Chloride (Cepacol) 1 lozg Q4H PRN ALBA sore throat 03/29/20 10:45 06/27/20 10:44 04/01/20 06:20 Dextrose (Dextrose 50%) 25 ml Q30M PRN IV Hypoglycemia 03/25/20 16:00 06/23/20 15:59 Dextrose (Dextrose 50%) 50 ml Q30M PRN IV Hypoglycemia 03/25/20 16:00 06/23/20 15:59 Diphenhydramine HCl (Benadryl Cream) 1 applic TID TOPIC 03/26/20 18:00 04/25/20 17:59 04/01/20 09:00 Diphenhydramine HCl (Benadryl) 25 mg Q6H PRN ORAL Itching 03/28/20 12:15 04/27/20 12:14 03/31/20 22:30 Gabapentin (Neurontin) 400 mg TID ORAL 03/25/20 20:00 04/24/20 19:59 04/01/20 08:58 Heparin Sodium (Porcine) (Heparin 5000 units/ml) 5,000 units EVERY 12 HOURS SUBQ 03/25/20 21:00 05/09/20 20:59 04/01/20 09:01 Hydroxyzine HCl (Atarax) 25 mg EVERY 8 HOURS PRN ORAL Itching 03/28/20 12:30 04/24/20 23:44 Insulin Aspart (NovoLOG) BEFORE MEALS AND HS SUBQ 03/25/20 16:30 06/23/20 16:29 Metoprolol Succinate (Toprol XL) 25 mg DAILY ORAL 03/26/20 09:00 06/24/20 08:59 04/01/20 08:58 Ondansetron HCl (Zofran) 4 mg Q6H PRN IVP Nausea & Vomiting 03/25/20 16:00 04/24/20 15:59 Oxycodone HCl (Roxicodone) 15 mg Q8H PRN ORAL Severe Pain (Pain Scale 7-10) 03/25/20 19:45 04/01/20 19:44 03/31/20 22:33 Polyethylene Glycol (Miralax) 17 gm HSPRN PRN ORAL Constipation 03/25/20 16:00 04/24/20 15:59 Triamcinolone Acetonide (Kenalog) 1 applic THREE TIMES A DAY TOPIC 03/26/20 17:00 06/24/20 16:59 04/01/20 09:00 Zolpidem Tartrate (Ambien) 5 mg HSPRN PRN ORAL Insomnia 03/25/20 16:00 04/01/20 15:59 Assessment/Plan Assessment/Plan ASSESSMENT Asthma Suspected COVID-19 infection -ruled out MORGAN on CKD CV disease with history of CVA x3 DM HTN Hypertension CHF with diastolic dysfunction Leg edema with mild cellulitis Chronic dermatitis with some flare up Morbid obesity Gout PLAN of CARE [facility] floor off isolation (per ID clearance) SARS-CoV-2 by PCR 03/25 not detected O2 titrate to keep sat above 92% pulmonary toilet venous duplex BLE negative oral Keflex as per ID recommendation for mild cellulitis Echo with pEF 55% continue beta-blockade monitor renal paramerts, lytes, avoid nephrotoxic, creat 1.9 this am s/p 03/30 Kayexalate, K stable fup with further nephro recs BS management with SSI supportive care: antipruritic prn dc plan in progress case discussed and evaluated by supervising physician Princess Chavez NP April 01, 2020 10:03
[2020-04-01] MEDS: oxyCODONE 15mg IR tab ORAL PRN (11:34)
[2020-04-01 12:00] VITALS: BP 102/65
--- NOTE | 2020-04-01 12:06 | Nephrology Progress Note ---
Assessment/Plan Problem List: (1) Acute on chronic renal insufficiency Assessment: better (2) Gout (3) HTN (hypertension) (4) Diabetes mellitus (5) Gastric cancer (6) Anemia (7) Suspected COVID-19 virus infection (8) Peripheral edema Assessment PTH is ok Plan I would hold diuretics permanently if peripheral edema is not severe Kayexalate PRN follow BMP Subjective Subjective all noted Objective Objective Last 24 Hour Vital Signs Date Time Temp Pulse Resp B/P (MAP) Pulse Ox O2 Delivery O2 Flow Rate FiO2 04/01/20 09:00 Room Air 04/01/20 08:58 81 153/67 04/01/20 08:00 97.9 81 20 153/67 (95) 93 04/01/20 03:45 98.1 72 18 145/72 (96) 98 04/01/20 00:00 98.5 79 18 144/78 (100) 95 03/31/20 21:00 Room Air 03/31/20 20:00 98.1 72 18 145/72 (96) 98 03/31/20 16:00 97.7 75 19 137/78 (97) 95 Intake and Output 03/31/20 04/01/20 19:00 07:00 Intake Total 800 ml 750 ml Balance 800 ml 750 ml Other 800 ml 750 ml # Voids 3 Laboratory Tests 04/01/20 06:10: White Blood Count 4.0L, Red Blood Count 4.11L, Hemoglobin 12.4, Hematocrit 38.5 , Mean Corpuscular Volume 94, Mean Corpuscular Hemoglobin 30.1, Mean Corpuscular Hemoglobin Concent 32.1, Red Cell Distribution Width 15.8H, Platelet Count 156, Mean Platelet Volume 4.5L, Neutrophils (%) (Auto) 50.3, Lymphocytes (%) (Auto) 30.7, Monocytes (%) (Auto) 11.7H, Eosinophils (%) (Auto) 5.4H, Basophils (%) (Auto) 1.8, Sodium Level 140, Potassium Level 5.0, Chloride Level 107, Carbon Dioxide Level 26, Anion Gap 7, Blood Urea Nitrogen 16, Creatinine 1.9H, Estimat Glomerular Filtration Rate 30.4, Glucose Level 87, Calcium Level 8.9 Height (Feet): 5 Height (Inches): 3.00 Weight (Pounds): 234 Amor Flores MD April 01, 2020 12:06
--- NOTE | 2020-04-01 14:10 | Internal Med Progress Note ---
Subjective Date of Service: April 01, 2020 Physician Name AlisaAníbal Attending Physician Christopher Villanueva MD Current Medications Medications (Trade) Dose Ordered Sig/Liss Route PRN Reason Start Time Stop Time Status Last Admin Dose Admin Acetaminophen (Tylenol) 650 mg Q4H PRN ORAL fever 03/25/20 16:00 04/24/20 15:59 Allopurinol (Zyloprim) 100 mg DAILY ORAL 03/26/20 09:00 04/25/20 08:59 04/01/20 08:58 Ammonium Lactate (Lac Hydrin) 1 applic TWICE A DAY TOPIC 03/27/20 18:00 06/25/20 17:59 04/01/20 09:00 Aspirin (Ecotrin) 325 mg DAILY ORAL 03/26/20 09:00 05/10/20 08:59 04/01/20 08:58 Cetylpyridinium Chloride (Cepacol) 1 lozg Q4H PRN ALBA sore throat 03/29/20 10:45 06/27/20 10:44 04/01/20 06:20 Dextrose (Dextrose 50%) 25 ml Q30M PRN IV Hypoglycemia 03/25/20 16:00 06/23/20 15:59 Dextrose (Dextrose 50%) 50 ml Q30M PRN IV Hypoglycemia 03/25/20 16:00 06/23/20 15:59 Diphenhydramine HCl (Benadryl Cream) 1 applic TID TOPIC 03/26/20 18:00 04/25/20 17:59 04/01/20 09:00 Diphenhydramine HCl (Benadryl) 25 mg Q6H PRN ORAL Itching 03/28/20 12:15 04/27/20 12:14 03/31/20 22:30 Gabapentin (Neurontin) 400 mg TID ORAL 03/25/20 20:00 04/24/20 19:59 04/01/20 08:58 Heparin Sodium (Porcine) (Heparin 5000 units/ml) 5,000 units EVERY 12 HOURS SUBQ 03/25/20 21:00 05/09/20 20:59 04/01/20 09:01 Hydroxyzine HCl (Atarax) 25 mg EVERY 8 HOURS PRN ORAL Itching 03/28/20 12:30 04/24/20 23:44 Insulin Aspart (NovoLOG) BEFORE MEALS AND HS SUBQ 03/25/20 16:30 06/23/20 16:29 Metoprolol Succinate (Toprol XL) 25 mg DAILY ORAL 03/26/20 09:00 06/24/20 08:59 04/01/20 08:58 Ondansetron HCl (Zofran) 4 mg Q6H PRN IVP Nausea & Vomiting 03/25/20 16:00 04/24/20 15:59 Oxycodone HCl (Roxicodone) 15 mg Q8H PRN ORAL Severe Pain (Pain Scale 7-10) 03/25/20 19:45 04/01/20 19:44 04/01/20 11:34 Polyethylene Glycol (Miralax) 17 gm HSPRN PRN ORAL Constipation 03/25/20 16:00 04/24/20 15:59 Triamcinolone Acetonide (Kenalog) 1 applic THREE TIMES A DAY TOPIC 03/26/20 17:00 06/24/20 16:59 04/01/20 09:00 Zolpidem Tartrate (Ambien) 5 mg HSPRN PRN ORAL Insomnia 03/25/20 16:00 04/01/20 15:59 Allergies: Coded Allergies: DIAZEPAM (Verified Allergy, Unknown, 10/07/11) HYDROCODONE (Verified Allergy, Unknown, 07/07/10) MINOXIDIL (Verified Allergy, Unknown, 07/07/10) PENICILLINS (Unverified Allergy, Unknown, 03/26/20) tolerates cephalosporin NAME ALERT (Verified Adverse Reaction, Unknown, 07/13/08) ROS Limited/Unobtainable: No Constitutional: Reports: no symptoms HEENT: Reports: no symptoms Cardiovascular: Reports: no symptoms Respiratory: Reports: no symptoms Gastrointestinal/Abdominal: Reports: no symptoms Genitourinary: Reports: no symptoms Neurologic/Psychiatric: Reports: no symptoms Subjective 84 YO F admitted with edema of LLE. Now acute on chronic renal failure. Cover for Int Saúl-Dr Villanueva Objective Last Vital Signs Date Time Temp Pulse Resp B/P (MAP) Pulse Ox O2 Delivery O2 Flow Rate FiO2 04/01/20 12:00 97.6 71 18 102/65 (77) 98 04/01/20 09:00 Room Air Laboratory Tests Test 04/01/20 06:10 White Blood Count 4.0 K/UL (4.8-10.8) L Red Blood Count 4.11 M/UL (4.20-5.40) L Hemoglobin 12.4 G/DL (12.0-16.0) Hematocrit 38.5 % (37.0-47.0) Mean Corpuscular Volume 94 FL (80-99) Mean Corpuscular Hemoglobin 30.1 PG (27.0-31.0) Mean Corpuscular Hemoglobin Concent 32.1 G/DL (32.0-36.0) Red Cell Distribution Width 15.8 % (11.6-14.8) H Platelet Count 156 K/UL (150-450) Mean Platelet Volume 4.5 FL (6.5-10.1) L Neutrophils (%) (Auto) 50.3 % (45.0-75.0) Lymphocytes (%) (Auto) 30.7 % (20.0-45.0) Monocytes (%) (Auto) 11.7 % (1.0-10.0) H Eosinophils (%) (Auto) 5.4 % (0.0-3.0) H Basophils (%) (Auto) 1.8 % (0.0-2.0) Sodium Level 140 MMOL/L (136-145) Potassium Level 5.0 MMOL/L (3.5-5.1) Chloride Level 107 MMOL/L (98-107) Carbon Dioxide Level 26 MMOL/L (21-32) Anion Gap 7 mmol/L (5-15) Blood Urea Nitrogen 16 mg/dL (7-18) Creatinine 1.9 MG/DL (0.55-1.30) H Estimat Glomerular Filtration Rate 30.4 mL/min (>60) Glucose Level 87 MG/DL (74-106) Calcium Level 8.9 MG/DL (8.5-10.1) Intake and Output 03/31/20 04/01/20 19:00 07:00 Intake Total 800 ml 750 ml Balance 800 ml 750 ml Other 800 ml 750 ml # Voids 3 Objective PHYSICAL EXAMINATION: GENERAL: Patient is well-developed, well-nourished obese female, in no apparent distress. HEENT: Eyes, pupils are equal and responsive to light and accommodation. Extraocular movements are intact. NECK: Supple without lymphadenopathy. CHEST: Lungs are clear to auscultation bilaterally without wheezes or rales. CARDIOVASCULAR: Regular rate. S1-S2 are normal without murmurs, rubs, or gallops. ABDOMEN: Soft, nontender, nondistended. Positive bowel sounds. No evidence of hepatosplenomegaly. Currently, no rebound or guarding. EXTREMITIES: Left leg is swollen when compared to the right. There is 2+ pitting edema on the left. Otherwise, without clubbing or cyanosis. RECTAL/GENITAL: Not performed. NEUROLOGIC: Cranial nerves II through XII are grossly intact without focal deficits. Motor strength is 5/5 bilaterally. Deep tendon reflexes are 2+ plantar. Assessment/Plan Assessment/Plan ASSESSMENT: This is an 84-year-old female. 1. Left lower extremity edema. 2. Acute on chronic renal failure. 3. Congestive heart failure. 4. Gastroesophageal reflux disease. 5. Diabetes type 2. 6. Anemia. 7. Hypertension. 8. Cerebrovascular disease. 9. Diabetes. 10. Gout. 11. Cardiomyopathy. TREATMENT: 1. Left lower extremity edema. A venous duplex Doppler=neg DVT. ABX=keflex per ID=Dr Moss 2. Acute on chronic renal failure. A Nephrology consultation has been obtained with Dr. Rafael Castillo. 3. Congestive heart failure. Cardiology consultation has been obtained with Dr. Pierce. 4. Gastroesophageal reflux disease. Continue Protonix as above. 5. Diabetes type 2. A NovoLog sliding scale has been instituted. 6. Anemia. 7. Hypertension. Continue metoprolol as above. 8. Cerebrovascular disease. 9. Obesity. 10. Gout. Continue allopurinol as above. 11. History of cardiomyopathy 12. Discharge to [facility] when bed available. Aníbal Cuellar MD April 01, 2020 14:10
--- NOTE | 2020-04-01 15:05 | Infectious Diseases Prog Note ---
Assessment/Plan Assessment/Plan Assessment: Lung opacities- doubt PNA, probably mild volume overload- COVID neg x1 -03/27 CXR: Subtle perihilar and peripheral-based interstitial opacities, persistent but decreased compared to the prior exam. Although findings may be related to fluid overload/CHF, the possibility of multifocal pneumonia (including viral pneumonia ) is not excluded and correlation with clinical findings is recommended. -03/25 CXR: Subtle perihilar and peripheral-based interstitial opacities. Although findings may be related to fluid overload/CHF, possibility of multifocal pneumonia (including viral pneumonia) is not excluded and correlation with clinical findings is recommended. Follow-up recommended. -03/25 SARS COV2 PCR neg Afebrile Mild leukopenia (chronic) -u/a neg -Bcx Neg L leg swelling-mild cellulitis -V duplex: No DVT chronic dermatitis- flare MORGAN on CKD; improving HTN Asthma Dm2 GERD CVA x3 morbid obesity gout cardiomyopathy s/p cholecystectomy SNF resident ([facility]) Plan: -Continue to monitor off abx -03/30 SP PO Keflex #5 -f/u cx -Monitor CBC/CMP, temperature -COVID19 neg x1- ok to dc isolation -Benadryl and triamcinolone cream from arms and legs Thank you for consulting [facility]. Will continue to follow along with you. Subjective Allergies: Coded Allergies: DIAZEPAM (Verified Allergy, Unknown, 10/07/11) HYDROCODONE (Verified Allergy, Unknown, 07/07/10) MINOXIDIL (Verified Allergy, Unknown, 07/07/10) PENICILLINS (Unverified Allergy, Unknown, 03/26/20) tolerates cephalosporin NAME ALERT (Verified Adverse Reaction, Unknown, 07/13/08) Subjective afebrile at RA Bcx neg Objective Vital Signs Last 24 Hour Vital Signs Date Time Temp Pulse Resp B/P (MAP) Pulse Ox O2 Delivery O2 Flow Rate FiO2 04/01/20 12:00 97.6 71 18 102/65 (77) 98 04/01/20 09:00 Room Air 04/01/20 08:58 81 153/67 04/01/20 08:00 97.9 81 20 153/67 (95) 93 04/01/20 03:45 98.1 72 18 145/72 (96) 98 04/01/20 00:00 98.5 79 18 144/78 (100) 95 03/31/20 21:00 Room Air 03/31/20 20:00 98.1 72 18 145/72 (96) 98 03/31/20 16:00 97.7 75 19 137/78 (97) 95 Height (Feet): 5 Height (Inches): 3.00 Weight (Pounds): 234 Objective Gen: no respiratory distress Head: normocephalic Lungs: no tachypnea or use of accessory resp muscles Abd: not distended Ext: L leg cellulitis resolving Laboratory Tests Test 04/01/20 06:10 White Blood Count 4.0 K/UL (4.8-10.8) L Red Blood Count 4.11 M/UL (4.20-5.40) L Hemoglobin 12.4 G/DL (12.0-16.0) Hematocrit 38.5 % (37.0-47.0) Mean Corpuscular Volume 94 FL (80-99) Mean Corpuscular Hemoglobin 30.1 PG (27.0-31.0) Mean Corpuscular Hemoglobin Concent 32.1 G/DL (32.0-36.0) Red Cell Distribution Width 15.8 % (11.6-14.8) H Platelet Count 156 K/UL (150-450) Mean Platelet Volume 4.5 FL (6.5-10.1) L Neutrophils (%) (Auto) 50.3 % (45.0-75.0) Lymphocytes (%) (Auto) 30.7 % (20.0-45.0) Monocytes (%) (Auto) 11.7 % (1.0-10.0) H Eosinophils (%) (Auto) 5.4 % (0.0-3.0) H Basophils (%) (Auto) 1.8 % (0.0-2.0) Sodium Level 140 MMOL/L (136-145) Potassium Level 5.0 MMOL/L (3.5-5.1) Chloride Level 107 MMOL/L (98-107) Carbon Dioxide Level 26 MMOL/L (21-32) Anion Gap 7 mmol/L (5-15) Blood Urea Nitrogen 16 mg/dL (7-18) Creatinine 1.9 MG/DL (0.55-1.30) H Estimat Glomerular Filtration Rate 30.4 mL/min (>60) Glucose Level 87 MG/DL (74-106) Calcium Level 8.9 MG/DL (8.5-10.1) Current Medications Medications (Trade) Dose Ordered Sig/Liss Route PRN Reason Start Time Stop Time Status Last Admin Dose Admin Acetaminophen (Tylenol) 650 mg Q4H PRN ORAL fever 03/25/20 16:00 04/24/20 15:59 Allopurinol (Zyloprim) 100 mg DAILY ORAL 03/26/20 09:00 04/25/20 08:59 04/01/20 08:58 Ammonium Lactate (Lac Hydrin) 1 applic TWICE A DAY TOPIC 03/27/20 18:00 06/25/20 17:59 04/01/20 09:00 Aspirin (Ecotrin) 325 mg DAILY ORAL 03/26/20 09:00 05/10/20 08:59 04/01/20 08:58 Cetylpyridinium Chloride (Cepacol) 1 lozg Q4H PRN ALBA sore throat 03/29/20 10:45 06/27/20 10:44 04/01/20 06:20 Dextrose (Dextrose 50%) 25 ml Q30M PRN IV Hypoglycemia 03/25/20 16:00 06/23/20 15:59 Dextrose (Dextrose 50%) 50 ml Q30M PRN IV Hypoglycemia 03/25/20 16:00 06/23/20 15:59 Diphenhydramine HCl (Benadryl Cream) 1 applic TID TOPIC 03/26/20 18:00 04/25/20 17:59 04/01/20 14:34 Diphenhydramine HCl (Benadryl) 25 mg Q6H PRN ORAL Itching 03/28/20 12:15 04/27/20 12:14 03/31/20 22:30 Gabapentin (Neurontin) 400 mg TID ORAL 03/25/20 20:00 04/24/20 19:59 04/01/20 14:33 Heparin Sodium (Porcine) (Heparin 5000 units/ml) 5,000 units EVERY 12 HOURS SUBQ 03/25/20 21:00 05/09/20 20:59 04/01/20 09:01 Hydroxyzine HCl (Atarax) 25 mg EVERY 8 HOURS PRN ORAL Itching 03/28/20 12:30 04/24/20 23:44 Insulin Aspart (NovoLOG) BEFORE MEALS AND HS SUBQ 03/25/20 16:30 06/23/20 16:29 Metoprolol Succinate (Toprol XL) 25 mg DAILY ORAL 03/26/20 09:00 06/24/20 08:59 04/01/20 08:58 Ondansetron HCl (Zofran) 4 mg Q6H PRN IVP Nausea & Vomiting 03/25/20 16:00 04/24/20 15:59 Oxycodone HCl (Roxicodone) 15 mg Q8H PRN ORAL Severe Pain (Pain Scale 7-10) 03/25/20 19:45 04/01/20 19:44 04/01/20 11:34 Polyethylene Glycol (Miralax) 17 gm HSPRN PRN ORAL Constipation 03/25/20 16:00 04/24/20 15:59 Triamcinolone Acetonide (Kenalog) 1 applic THREE TIMES A DAY TOPIC 03/26/20 17:00 06/24/20 16:59 04/01/20 14:34 Zolpidem Tartrate (Ambien) 5 mg HSPRN PRN ORAL Insomnia 03/25/20 16:00 04/01/20 15:59 Lillian Moss M.D. April 01, 2020 15:05
[2020-04-01 16:00] VITALS: BP 138/87
--- NOTE | 2020-04-01 18:30 | Cardiology Progress Note ---
Assessment/Plan Assessment/Plan stable from cardiac standpoint Subjective Subjective The patient is eating lunch during visit she reports feeling much better, and her edema is much better Objective Last 24 Hour Vital Signs Date Time Temp Pulse Resp B/P (MAP) Pulse Ox O2 Delivery O2 Flow Rate FiO2 04/01/20 16:00 98.1 111 20 138/87 (104) 95 04/01/20 12:00 97.6 71 18 102/65 (77) 98 04/01/20 09:00 Room Air 04/01/20 08:58 81 153/67 04/01/20 08:00 97.9 81 20 153/67 (95) 93 04/01/20 03:45 98.1 72 18 145/72 (96) 98 04/01/20 00:00 98.5 79 18 144/78 (100) 95 03/31/20 21:00 Room Air 03/31/20 20:00 98.1 72 18 145/72 (96) 98 General Appearance: no apparent distress EENT: PERRL/EOMI Neck: supple, no JVD Rhythm: NSR Cardiovascular: regular rhythm Respiratory/Chest: lungs clear Abdomen: soft Extremities: normal range of motion, trace edema Intake and Output 03/31/20 04/01/20 19:00 07:00 Intake Total 800 ml 750 ml Balance 800 ml 750 ml Other 800 ml 750 ml # Voids 3 Laboratory Tests Test 04/01/20 06:10 White Blood Count 4.0 K/UL (4.8-10.8) L Red Blood Count 4.11 M/UL (4.20-5.40) L Hemoglobin 12.4 G/DL (12.0-16.0) Hematocrit 38.5 % (37.0-47.0) Mean Corpuscular Volume 94 FL (80-99) Mean Corpuscular Hemoglobin 30.1 PG (27.0-31.0) Mean Corpuscular Hemoglobin Concent 32.1 G/DL (32.0-36.0) Red Cell Distribution Width 15.8 % (11.6-14.8) H Platelet Count 156 K/UL (150-450) Mean Platelet Volume 4.5 FL (6.5-10.1) L Neutrophils (%) (Auto) 50.3 % (45.0-75.0) Lymphocytes (%) (Auto) 30.7 % (20.0-45.0) Monocytes (%) (Auto) 11.7 % (1.0-10.0) H Eosinophils (%) (Auto) 5.4 % (0.0-3.0) H Basophils (%) (Auto) 1.8 % (0.0-2.0) Sodium Level 140 MMOL/L (136-145) Potassium Level 5.0 MMOL/L (3.5-5.1) Chloride Level 107 MMOL/L (98-107) Carbon Dioxide Level 26 MMOL/L (21-32) Anion Gap 7 mmol/L (5-15) Blood Urea Nitrogen 16 mg/dL (7-18) Creatinine 1.9 MG/DL (0.55-1.30) H Estimat Glomerular Filtration Rate 30.4 mL/min (>60) Glucose Level 87 MG/DL (74-106) Calcium Level 8.9 MG/DL (8.5-10.1) Kelsi Weinberg MD April 01, 2020 18:30
[2020-04-01 20:00] VITALS: BP 127/82
--- NOTE | 2020-04-01 20:30 | Progress Note ---
DATE: 03/31/2020 SUBJECTIVE: The patient is doing much better. She denies significant lower extremity edema. It is much better at present time. PHYSICAL EXAMINATION: GENERAL: This is comfortable patient resting in bed. VITAL SIGNS: Her blood pressure was 140/70, heart rate is 70, oxygen saturation 98%, and temperature 98.1. GENERAL: The patient is comfortable. LUNGS: Clear to auscultation. NECK: Neck veins are not distended. HEART: Regular. ABDOMEN: Soft. EXTREMITIES: Lower extremities, 2+ edema. LABORATORY AND DIAGNOSTIC DATA: Her labs are all reviewed and her hemoglobin remained stable and her platelets are also stable. Her chemistry is unremarkable. Creatinine is improving. IMPRESSION AND RECOMMENDATION: The patient is stable from cardiac standpoint. We are going to monitor her volume status and lower extremity edema and her renal function as well. Kelsi Weinberg M.D. DR: NOBLE JOB#: [id number] CC:
[2020-04-02 04:00] VITALS: BP 137/85
[2020-04-02] MEDS: NovoLOG Insulin Flexpen SUBQ SCH ×4 (05:52→20:11)
[2020-04-02 06:35] LABS: HEMATOCRIT 32.8 % (37.0-47.0); HEMOGLOBIN 10.6 G/DL (12.0-16.0); MEAN CORPUSCULAR VOLUME 94 FL (80-99); PLATELET COUNT 151 K/UL (150-450); RED CELL DISTRIBUTION WIDTH 15.6 % (11.6-14.8); WHITE BLOOD COUNT 3.4 K/UL (4.8-10.8)
[2020-04-02 06:43] LABS: ANION GAP 7 mmol/L (5-15); BLOOD UREA NITROGEN 18 mg/dL (7-18); CALCIUM 8.6 MG/DL (8.5-10.1); CARBON DIOXIDE 26 MMOL/L (21-32); CHLORIDE 109 MMOL/L (98-107); CREATININE 1.8 MG/DL (0.55-1.30); POTASSIUM 4.9 MMOL/L (3.5-5.1); SODIUM 141 MMOL/L (136-145)
[2020-04-02 08:00] VITALS: BP 142/65
[2020-04-02] MEDS: Aspirin EC 325mg tab ORAL SCH (08:27)
[2020-04-02] MEDS: Allopurinol 100mg Tab ORAL SCH (08:27)
[2020-04-02] MEDS: Metoprolol Succinate XL 25mg tab ORAL SCH (08:27)
[2020-04-02] MEDS: Lac Hydrin 12% Lotion 8oz TOPIC SCH ×2 (08:29→17:12)
[2020-04-02] MEDS: Triamcinolone 0.1% 15gm Cr TOPIC SCH ×3 (08:29→17:11)
[2020-04-02] MEDS: DiphenhydrAMINE & Zinc 28g Cream TOPIC SCH ×3 (08:30→17:12)
[2020-04-02] MEDS: Heparin 5000 units/ml inj SUBQ SCH ×2 (08:38→20:11)
[2020-04-02 12:00] VITALS: BP 141/88
--- NOTE | 2020-04-02 13:45 | Pulmonology Progress Note ---
Subjective ROS Limited/Unobtainable: No Allergies: Coded Allergies: DIAZEPAM (Verified Allergy, Unknown, 10/07/11) HYDROCODONE (Verified Allergy, Unknown, 07/07/10) MINOXIDIL (Verified Allergy, Unknown, 07/07/10) PENICILLINS (Unverified Allergy, Unknown, 03/26/20) tolerates cephalosporin NAME ALERT (Verified Adverse Reaction, Unknown, 07/13/08) Objective Last 24 Hour Vital Signs Date Time Temp Pulse Resp B/P (MAP) Pulse Ox O2 Delivery O2 Flow Rate FiO2 04/02/20 12:00 98.8 70 19 141/88 (105) 94 04/02/20 09:00 Room Air 04/02/20 08:27 65 142/65 04/02/20 08:00 97.9 65 20 142/65 (90) 96 04/02/20 04:00 97.7 79 20 137/85 (102) 95 04/01/20 21:37 Room Air 04/01/20 20:00 97.3 84 20 127/82 (97) 95 04/01/20 16:00 98.1 111 20 138/87 (104) 95 Intake and Output 04/01/20 04/02/20 19:00 07:00 Intake Total 1000 ml 250 ml Balance 1000 ml 250 ml Intake Oral 250 ml Other 1000 ml # Voids 2 General Appearance: WD/WN, no acute distress HEENT: normocephalic, atraumatic Respiratory: chest wall non-tender, normal breath sounds Breasts: no masses Cardiovascular: normal peripheral pulses Genitourinary: normal external genitalia Extremities: no cyanosis, no clubbing Skin: no rash Laboratory Tests 04/02/20 05:30: White Blood Count 3.4L, Red Blood Count 3.50L, Hemoglobin 10.6L, Hematocrit 32.8L, Mean Corpuscular Volume 94, Mean Corpuscular Hemoglobin 30.2, Mean Corpuscular Hemoglobin Concent 32.2, Red Cell Distribution Width 15.6H, Platelet Count 151, Mean Platelet Volume 5.5L, Neutrophils (%) (Auto) , Lymphocytes (%) (Auto) , Monocytes (%) (Auto) , Eosinophils (%) (Auto) , Basophils (%) (Auto) , Sodium Level 141, Potassium Level 4.9, Chloride Level 109H, Carbon Dioxide Level 26, Anion Gap 7, Blood Urea Nitrogen 18, Creatinine 1.8H, Estimat Glomerular Filtration Rate 32.4, Glucose Level 81, Calcium Level 8.6 Current Medications Medications (Trade) Dose Ordered Sig/Liss Route PRN Reason Start Time Stop Time Status Last Admin Dose Admin Acetaminophen (Tylenol) 650 mg Q4H PRN ORAL fever 03/25/20 16:00 04/24/20 15:59 Allopurinol (Zyloprim) 100 mg DAILY ORAL 03/26/20 09:00 04/25/20 08:59 04/02/20 08:27 Ammonium Lactate (Lac Hydrin) 1 applic TWICE A DAY TOPIC 03/27/20 18:00 06/25/20 17:59 04/02/20 08:29 Aspirin (Ecotrin) 325 mg DAILY ORAL 03/26/20 09:00 05/10/20 08:59 04/02/20 08:27 Cetylpyridinium Chloride (Cepacol) 1 lozg Q4H PRN ALBA sore throat 03/29/20 10:45 06/27/20 10:44 04/01/20 06:20 Dextrose (Dextrose 50%) 25 ml Q30M PRN IV Hypoglycemia 03/25/20 16:00 06/23/20 15:59 Dextrose (Dextrose 50%) 50 ml Q30M PRN IV Hypoglycemia 03/25/20 16:00 06/23/20 15:59 Diphenhydramine HCl (Benadryl Cream) 1 applic TID TOPIC 03/26/20 18:00 04/25/20 17:59 04/02/20 12:11 Diphenhydramine HCl (Benadryl) 25 mg Q6H PRN ORAL Itching 03/28/20 12:15 04/27/20 12:14 03/31/20 22:30 Gabapentin (Neurontin) 400 mg TID ORAL 03/25/20 20:00 04/24/20 19:59 04/02/20 12:10 Heparin Sodium (Porcine) (Heparin 5000 units/ml) 5,000 units EVERY 12 HOURS SUBQ 03/25/20 21:00 05/09/20 20:59 04/02/20 08:38 Hydroxyzine HCl (Atarax) 25 mg EVERY 8 HOURS PRN ORAL Itching 03/28/20 12:30 04/24/20 23:44 Insulin Aspart (NovoLOG) BEFORE MEALS AND HS SUBQ 03/25/20 16:30 06/23/20 16:29 Metoprolol Succinate (Toprol XL) 25 mg DAILY ORAL 03/26/20 09:00 06/24/20 08:59 04/02/20 08:27 Ondansetron HCl (Zofran) 4 mg Q6H PRN IVP Nausea & Vomiting 03/25/20 16:00 04/24/20 15:59 Oxycodone HCl (Roxicodone) 15 mg Q8H PRN ORAL Severe Pain (Pain Scale 7-10) 04/02/20 13:30 04/09/20 13:29 Polyethylene Glycol (Miralax) 17 gm HSPRN PRN ORAL Constipation 03/25/20 16:00 04/24/20 15:59 Triamcinolone Acetonide (Kenalog) 1 applic THREE TIMES A DAY TOPIC 03/26/20 17:00 06/24/20 16:59 04/02/20 12:12 Assessment/Plan Problems: (1) Suspected COVID-19 virus infection (2) Acute on chronic renal insufficiency (3) Peripheral edema (4) Asthma (5) CKD (chronic kidney disease) (6) Diabetes mellitus (7) HTN (hypertension) (8) GERD (gastroesophageal reflux disease) (9) Cerebral vascular disease (10) Gout Assessment/Plan doing better covid - times one renal function improving, all reviewed f/u electrolytes cultures pending, all negative so far respiratory treatment titrate fio2 to sat of o2% f/u renal studies all reviewed Roberta Durán MD April 02, 2020 13:45
[2020-04-02] MEDS: oxyCODONE 15mg IR tab ORAL PRN ×2 (13:46→22:45)
[2020-04-02 16:00] VITALS: BP 128/74
--- NOTE | 2020-04-02 16:30 | Internal Med Progress Note ---
Subjective Date of Service: April 02, 2020 Physician Name Aníbal Cuellar Attending Physician Christopher Villanueva MD Current Medications Medications (Trade) Dose Ordered Sig/Liss Route PRN Reason Start Time Stop Time Status Last Admin Dose Admin Acetaminophen (Tylenol) 650 mg Q4H PRN ORAL fever 03/25/20 16:00 04/24/20 15:59 Allopurinol (Zyloprim) 100 mg DAILY ORAL 03/26/20 09:00 04/25/20 08:59 04/02/20 08:27 Ammonium Lactate (Lac Hydrin) 1 applic TWICE A DAY TOPIC 03/27/20 18:00 06/25/20 17:59 04/02/20 08:29 Aspirin (Ecotrin) 325 mg DAILY ORAL 03/26/20 09:00 05/10/20 08:59 04/02/20 08:27 Cetylpyridinium Chloride (Cepacol) 1 lozg Q4H PRN ALBA sore throat 03/29/20 10:45 06/27/20 10:44 04/01/20 06:20 Dextrose (Dextrose 50%) 25 ml Q30M PRN IV Hypoglycemia 03/25/20 16:00 06/23/20 15:59 Dextrose (Dextrose 50%) 50 ml Q30M PRN IV Hypoglycemia 03/25/20 16:00 06/23/20 15:59 Diphenhydramine HCl (Benadryl Cream) 1 applic TID TOPIC 03/26/20 18:00 04/25/20 17:59 04/02/20 12:11 Diphenhydramine HCl (Benadryl) 25 mg Q6H PRN ORAL Itching 03/28/20 12:15 04/27/20 12:14 03/31/20 22:30 Gabapentin (Neurontin) 400 mg TID ORAL 03/25/20 20:00 04/24/20 19:59 04/02/20 12:10 Heparin Sodium (Porcine) (Heparin 5000 units/ml) 5,000 units EVERY 12 HOURS SUBQ 03/25/20 21:00 05/09/20 20:59 04/02/20 08:38 Hydroxyzine HCl (Atarax) 25 mg EVERY 8 HOURS PRN ORAL Itching 03/28/20 12:30 04/24/20 23:44 Insulin Aspart (NovoLOG) BEFORE MEALS AND HS SUBQ 03/25/20 16:30 06/23/20 16:29 Metoprolol Succinate (Toprol XL) 25 mg DAILY ORAL 03/26/20 09:00 06/24/20 08:59 04/02/20 08:27 Ondansetron HCl (Zofran) 4 mg Q6H PRN IVP Nausea & Vomiting 03/25/20 16:00 04/24/20 15:59 Oxycodone HCl (Roxicodone) 15 mg Q8H PRN ORAL Severe Pain (Pain Scale 7-10) 04/02/20 13:30 04/09/20 13:29 04/02/20 13:46 Polyethylene Glycol (Miralax) 17 gm HSPRN PRN ORAL Constipation 03/25/20 16:00 04/24/20 15:59 Triamcinolone Acetonide (Kenalog) 1 applic THREE TIMES A DAY TOPIC 03/26/20 17:00 06/24/20 16:59 04/02/20 12:12 Allergies: Coded Allergies: DIAZEPAM (Verified Allergy, Unknown, 10/07/11) HYDROCODONE (Verified Allergy, Unknown, 07/07/10) MINOXIDIL (Verified Allergy, Unknown, 07/07/10) PENICILLINS (Unverified Allergy, Unknown, 03/26/20) tolerates cephalosporin NAME ALERT (Verified Adverse Reaction, Unknown, 07/13/08) ROS Limited/Unobtainable: No Constitutional: Reports: no symptoms HEENT: Reports: no symptoms Cardiovascular: Reports: no symptoms Respiratory: Reports: no symptoms Gastrointestinal/Abdominal: Reports: no symptoms Genitourinary: Reports: no symptoms Neurologic/Psychiatric: Reports: no symptoms Subjective 84 YO F admitted with edema of LLE. Now acute on chronic renal failure. Cover for Int Saúl-Dr Villanueva Objective Last Vital Signs Date Time Temp Pulse Resp B/P (MAP) Pulse Ox O2 Delivery O2 Flow Rate FiO2 04/02/20 16:00 98.2 92 20 128/74 (92) 93 04/02/20 09:00 Room Air Laboratory Tests Test 04/02/20 05:30 White Blood Count 3.4 K/UL (4.8-10.8) L Red Blood Count 3.50 M/UL (4.20-5.40) L Hemoglobin 10.6 G/DL (12.0-16.0) L Hematocrit 32.8 % (37.0-47.0) L Mean Corpuscular Volume 94 FL (80-99) Mean Corpuscular Hemoglobin 30.2 PG (27.0-31.0) Mean Corpuscular Hemoglobin Concent 32.2 G/DL (32.0-36.0) Red Cell Distribution Width 15.6 % (11.6-14.8) H Platelet Count 151 K/UL (150-450) Mean Platelet Volume 5.5 FL (6.5-10.1) L Neutrophils (%) (Auto) % (45.0-75.0) Lymphocytes (%) (Auto) % (20.0-45.0) Monocytes (%) (Auto) % (1.0-10.0) Eosinophils (%) (Auto) % (0.0-3.0) Basophils (%) (Auto) % (0.0-2.0) Sodium Level 141 MMOL/L (136-145) Potassium Level 4.9 MMOL/L (3.5-5.1) Chloride Level 109 MMOL/L (98-107) H Carbon Dioxide Level 26 MMOL/L (21-32) Anion Gap 7 mmol/L (5-15) Blood Urea Nitrogen 18 mg/dL (7-18) Creatinine 1.8 MG/DL (0.55-1.30) H Estimat Glomerular Filtration Rate 32.4 mL/min (>60) Glucose Level 81 MG/DL (74-106) Calcium Level 8.6 MG/DL (8.5-10.1) Intake and Output 04/01/20 04/02/20 19:00 07:00 Intake Total 1000 ml 250 ml Balance 1000 ml 250 ml Intake Oral 250 ml Other 1000 ml # Voids 2 Objective PHYSICAL EXAMINATION: GENERAL: Patient is well-developed, well-nourished obese female, in no apparent distress. HEENT: Eyes, pupils are equal and responsive to light and accommodation. Extraocular movements are intact. NECK: Supple without lymphadenopathy. CHEST: Lungs are clear to auscultation bilaterally without wheezes or rales. CARDIOVASCULAR: Regular rate. S1-S2 are normal without murmurs, rubs, or gallops. ABDOMEN: Soft, nontender, nondistended. Positive bowel sounds. No evidence of hepatosplenomegaly. Currently, no rebound or guarding. EXTREMITIES: Left leg is swollen when compared to the right. There is 2+ pitting edema on the left. Otherwise, without clubbing or cyanosis. RECTAL/GENITAL: Not performed. NEUROLOGIC: Cranial nerves II through XII are grossly intact without focal deficits. Motor strength is 5/5 bilaterally. Deep tendon reflexes are 2+ plantar. Assessment/Plan Assessment/Plan ASSESSMENT: This is an 84-year-old female. 1. Left lower extremity edema. 2. Acute on chronic renal failure. 3. Congestive heart failure. 4. Gastroesophageal reflux disease. 5. Diabetes type 2. 6. Anemia. 7. Hypertension. 8. Cerebrovascular disease. 9. Diabetes. 10. Gout. 11. Cardiomyopathy. TREATMENT: 1. Left lower extremity edema. A venous duplex Doppler=neg DVT. ABX=S/P keflex per ID=Dr Moss 2. Acute on chronic renal failure. A Nephrology consultation has been obtained with Dr. Rafael Castillo. 3. Congestive heart failure. Cardiology consultation has been obtained with Dr. Pierce. 4. Gastroesophageal reflux disease. Continue Protonix as above. 5. Diabetes type 2. A NovoLog sliding scale has been instituted. 6. Anemia. 7. Hypertension. Continue metoprolol as above. 8. Cerebrovascular disease. 9. Obesity. 10. Gout. Continue allopurinol as above. 11. History of cardiomyopathy 12. Discharge to [facility] when bed available. Aníbal Cuellar MD April 02, 2020 16:30
[2020-04-02 20:00] VITALS: BP 133/63
--- NOTE | 2020-04-02 21:02 | Nephrology Progress Note ---
Assessment/Plan Problem List: (1) Acute on chronic renal insufficiency Assessment: better (2) Gout (3) HTN (hypertension) (4) Diabetes mellitus (5) Gastric cancer (6) Anemia (7) Suspected COVID-19 virus infection (8) Peripheral edema Assessment PTH is ok Plan cont as is follow BMP Subjective Subjective all noted Objective Objective Last 24 Hour Vital Signs Date Time Temp Pulse Resp B/P (MAP) Pulse Ox O2 Delivery O2 Flow Rate FiO2 04/02/20 16:00 98.2 92 20 128/74 (92) 93 04/02/20 12:00 98.8 70 19 141/88 (105) 94 04/02/20 09:00 Room Air 04/02/20 08:27 65 142/65 04/02/20 08:00 97.9 65 20 142/65 (90) 96 04/02/20 04:00 97.7 79 20 137/85 (102) 95 04/01/20 21:37 Room Air Intake and Output 04/01/20 04/02/20 19:00 07:00 Intake Total 1000 ml 250 ml Balance 1000 ml 250 ml Intake Oral 250 ml Other 1000 ml # Voids 2 Laboratory Tests 04/02/20 05:30: White Blood Count 3.4L, Red Blood Count 3.50L, Hemoglobin 10.6L, Hematocrit 32.8L, Mean Corpuscular Volume 94, Mean Corpuscular Hemoglobin 30.2, Mean Corpuscular Hemoglobin Concent 32.2, Red Cell Distribution Width 15.6H, Platelet Count 151, Mean Platelet Volume 5.5L, Neutrophils (%) (Auto) , Lymphocytes (%) (Auto) , Monocytes (%) (Auto) , Eosinophils (%) (Auto) , Basophils (%) (Auto) , Sodium Level 141, Potassium Level 4.9, Chloride Level 109H, Carbon Dioxide Level 26, Anion Gap 7, Blood Urea Nitrogen 18, Creatinine 1.8H, Estimat Glomerular Filtration Rate 32.4, Glucose Level 81, Calcium Level 8.6 Height (Feet): 5 Height (Inches): 3.00 Weight (Pounds): 234 Amor Flores MD April 02, 2020 21:01
[2020-04-03] VITALS: BP 118/63
[2020-04-03 04:00] VITALS: BP 127/61
[2020-04-03] MEDS: NovoLOG Insulin Flexpen SUBQ SCH ×2 (06:30→11:30)
[2020-04-03 07:06] LABS: ANION GAP 7 mmol/L (5-15); BLOOD UREA NITROGEN 18 mg/dL (7-18); CALCIUM 8.8 MG/DL (8.5-10.1); CARBON DIOXIDE 25 MMOL/L (21-32); CHLORIDE 109 MMOL/L (98-107); POTASSIUM 5.2 MMOL/L (3.5-5.1); SODIUM 141 MMOL/L (136-145)
[2020-04-03 07:20] LABS: BASOPHILS % (AUTO) 1.3 % (0.0-2.0); EOSINOPHILS % (AUTO) 5.3 % (0.0-3.0); HEMATOCRIT 32.1 % (37.0-47.0); HEMOGLOBIN 10.3 G/DL (12.0-16.0); MEAN CORPUSCULAR VOLUME 95 FL (80-99); MONOCYTES % (AUTO) 14.8 % (1.0-10.0); NEUTROPHILS % (AUTO) 48.6 % (45.0-75.0); PLATELET COUNT 135 K/UL (150-450); RED BLOOD COUNT 3.38 M/UL (4.20-5.40); RED CELL DISTRIBUTION WIDTH 15.8 % (11.6-14.8); WHITE BLOOD COUNT 4.1 K/UL (4.8-10.8)
[2020-04-03 08:00] VITALS: BP 144/75
[2020-04-03] MEDS: Heparin 5000 units/ml inj SUBQ SCH (09:00)
[2020-04-03] MEDS: Lac Hydrin 12% Lotion 8oz TOPIC SCH (09:00)
[2020-04-03] MEDS: Triamcinolone 0.1% 15gm Cr TOPIC SCH ×2 (09:00→13:00)
[2020-04-03] MEDS: Aspirin EC 325mg tab ORAL SCH (09:44)
[2020-04-03] MEDS: Allopurinol 100mg Tab ORAL SCH (09:45)
[2020-04-03] MEDS: Metoprolol Succinate XL 25mg tab ORAL SCH (09:45)
[2020-04-03] MEDS: DiphenhydrAMINE & Zinc 28g Cream TOPIC SCH ×2 (09:47→13:58)
[2020-04-03 12:00] VITALS: BP 139/62
--- NOTE | 2020-04-03 12:36 | Internal Med Progress Note ---
Subjective Date of Service: April 03, 2020 Physician Name Aníbal Cuellar Attending Physician Christopher Villanueva MD Current Medications Medications (Trade) Dose Ordered Sig/Liss Route PRN Reason Start Time Stop Time Status Last Admin Dose Admin Acetaminophen (Tylenol) 650 mg Q4H PRN ORAL fever 03/25/20 16:00 04/24/20 15:59 Allopurinol (Zyloprim) 100 mg DAILY ORAL 03/26/20 09:00 04/25/20 08:59 04/03/20 09:45 Ammonium Lactate (Lac Hydrin) 1 applic TWICE A DAY TOPIC 03/27/20 18:00 06/25/20 17:59 04/02/20 17:12 Aspirin (Ecotrin) 325 mg DAILY ORAL 03/26/20 09:00 05/10/20 08:59 04/03/20 09:44 Cetylpyridinium Chloride (Cepacol) 1 lozg Q4H PRN ALBA sore throat 03/29/20 10:45 06/27/20 10:44 04/01/20 06:20 Dextrose (Dextrose 50%) 25 ml Q30M PRN IV Hypoglycemia 03/25/20 16:00 06/23/20 15:59 Dextrose (Dextrose 50%) 50 ml Q30M PRN IV Hypoglycemia 03/25/20 16:00 06/23/20 15:59 Diphenhydramine HCl (Benadryl Cream) 1 applic TID TOPIC 03/26/20 18:00 04/25/20 17:59 04/03/20 09:47 Diphenhydramine HCl (Benadryl) 25 mg Q6H PRN ORAL Itching 03/28/20 12:15 04/27/20 12:14 03/31/20 22:30 Gabapentin (Neurontin) 400 mg TID ORAL 03/25/20 20:00 04/24/20 19:59 04/03/20 09:44 Heparin Sodium (Porcine) (Heparin 5000 units/ml) 5,000 units EVERY 12 HOURS SUBQ 03/25/20 21:00 05/09/20 20:59 04/02/20 08:38 Hydroxyzine HCl (Atarax) 25 mg EVERY 8 HOURS PRN ORAL Itching 03/28/20 12:30 04/24/20 23:44 Insulin Aspart (NovoLOG) BEFORE MEALS AND HS SUBQ 03/25/20 16:30 06/23/20 16:29 Metoprolol Succinate (Toprol XL) 25 mg DAILY ORAL 03/26/20 09:00 06/24/20 08:59 04/03/20 09:45 Ondansetron HCl (Zofran) 4 mg Q6H PRN IVP Nausea & Vomiting 03/25/20 16:00 04/24/20 15:59 Oxycodone HCl (Roxicodone) 15 mg Q8H PRN ORAL Severe Pain (Pain Scale 7-10) 04/02/20 13:30 04/09/20 13:29 04/02/20 22:45 Polyethylene Glycol (Miralax) 17 gm HSPRN PRN ORAL Constipation 03/25/20 16:00 04/24/20 15:59 Triamcinolone Acetonide (Kenalog) 1 applic THREE TIMES A DAY TOPIC 03/26/20 17:00 06/24/20 16:59 04/02/20 17:11 Allergies: Coded Allergies: DIAZEPAM (Verified Allergy, Unknown, 10/07/11) HYDROCODONE (Verified Allergy, Unknown, 07/07/10) MINOXIDIL (Verified Allergy, Unknown, 07/07/10) PENICILLINS (Unverified Allergy, Unknown, 03/26/20) tolerates cephalosporin NAME ALERT (Verified Adverse Reaction, Unknown, 07/13/08) ROS Limited/Unobtainable: No Constitutional: Reports: no symptoms HEENT: Reports: no symptoms Cardiovascular: Reports: no symptoms Respiratory: Reports: no symptoms Gastrointestinal/Abdominal: Reports: no symptoms Genitourinary: Reports: no symptoms Neurologic/Psychiatric: Reports: no symptoms Subjective 84 YO F admitted with edema of LLE. Now acute on chronic renal failure. Cover for Int Súal-Dr Villanueva Objective Last Vital Signs Date Time Temp Pulse Resp B/P (MAP) Pulse Ox O2 Delivery O2 Flow Rate FiO2 04/03/20 10:18 Room Air 04/03/20 09:45 73 133/56 04/03/20 08:00 97.7 19 92 Laboratory Tests Test 04/03/20 05:35 White Blood Count 4.1 K/UL (4.8-10.8) L Red Blood Count 3.38 M/UL (4.20-5.40) L Hemoglobin 10.3 G/DL (12.0-16.0) L Hematocrit 32.1 % (37.0-47.0) L Mean Corpuscular Volume 95 FL (80-99) Mean Corpuscular Hemoglobin 30.3 PG (27.0-31.0) Mean Corpuscular Hemoglobin Concent 32.0 G/DL (32.0-36.0) Red Cell Distribution Width 15.8 % (11.6-14.8) H Platelet Count 135 K/UL (150-450) L Mean Platelet Volume 4.9 FL (6.5-10.1) L Neutrophils (%) (Auto) 48.6 % (45.0-75.0) Lymphocytes (%) (Auto) 30.0 % (20.0-45.0) Monocytes (%) (Auto) 14.8 % (1.0-10.0) H Eosinophils (%) (Auto) 5.3 % (0.0-3.0) H Basophils (%) (Auto) 1.3 % (0.0-2.0) Sodium Level 141 MMOL/L (136-145) Potassium Level 5.2 MMOL/L (3.5-5.1) H Chloride Level 109 MMOL/L (98-107) H Carbon Dioxide Level 25 MMOL/L (21-32) Anion Gap 7 mmol/L (5-15) Blood Urea Nitrogen 18 mg/dL (7-18) Creatinine 2.0 MG/DL (0.55-1.30) H Estimat Glomerular Filtration Rate 28.6 mL/min (>60) Glucose Level 77 MG/DL (74-106) Calcium Level 8.8 MG/DL (8.5-10.1) Intake and Output 04/02/20 04/03/20 19:00 07:00 Intake Total 820 ml 200 ml Balance 820 ml 200 ml Intake Oral 820 ml 200 ml # Voids 5 2 Objective PHYSICAL EXAMINATION: GENERAL: Patient is well-developed, well-nourished obese female, in no apparent distress. HEENT: Eyes, pupils are equal and responsive to light and accommodation. Extraocular movements are intact. NECK: Supple without lymphadenopathy. CHEST: Lungs are clear to auscultation bilaterally without wheezes or rales. CARDIOVASCULAR: Regular rate. S1-S2 are normal without murmurs, rubs, or gallops. ABDOMEN: Soft, nontender, nondistended. Positive bowel sounds. No evidence of hepatosplenomegaly. Currently, no rebound or guarding. EXTREMITIES: Left leg is swollen when compared to the right. There is 2+ pitting edema on the left. Otherwise, without clubbing or cyanosis. RECTAL/GENITAL: Not performed. NEUROLOGIC: Cranial nerves II through XII are grossly intact without focal deficits. Motor strength is 5/5 bilaterally. Deep tendon reflexes are 2+ plantar. Assessment/Plan Assessment/Plan ASSESSMENT: This is an 84-year-old female. 1. Left lower extremity edema. 2. Acute on chronic renal failure. 3. Congestive heart failure. 4. Gastroesophageal reflux disease. 5. Diabetes type 2. 6. Anemia. 7. Hypertension. 8. Cerebrovascular disease. 9. Diabetes. 10. Gout. 11. Cardiomyopathy. TREATMENT: 1. Left lower extremity edema. A venous duplex Doppler=neg DVT. ABX=S/P keflex per ID=Dr Moss 2. Acute on chronic renal failure. A Nephrology consultation has been obtained with Dr. Rafael Castillo. 3. Congestive heart failure. Cardiology consultation has been obtained with Dr. Pierce. 4. Gastroesophageal reflux disease. Continue Protonix as above. 5. Diabetes type 2. A NovoLog sliding scale has been instituted. 6. Anemia. 7. Hypertension. Continue metoprolol as above. 8. Cerebrovascular disease. 9. Obesity. 10. Gout. Continue allopurinol as above. 11. History of cardiomyopathy 12. Discharge to [facility] today Aníbal Cuellar MD April 03, 2020 12:36
--- NOTE | 2020-04-03 14:04 | Nephrology Progress Note ---
Assessment/Plan Problem List: (1) Acute on chronic renal insufficiency Assessment: better (2) Gout (3) HTN (hypertension) (4) Diabetes mellitus (5) Gastric cancer (6) Anemia (7) Suspected COVID-19 virus infection (8) Peripheral edema Assessment PTH is ok Plan Discussed with RN Dc today would not give diuretics Subjective Subjective all noted Objective Objective Last 24 Hour Vital Signs Date Time Temp Pulse Resp B/P (MAP) Pulse Ox O2 Delivery O2 Flow Rate FiO2 04/03/20 12:00 98.2 76 18 139/62 (87) 95 04/03/20 10:18 Room Air 04/03/20 09:45 73 133/56 04/03/20 08:00 97.7 76 19 144/75 (98) 95 04/03/20 04:00 97.7 83 20 127/61 (83) 92 04/03/20 00:00 98.1 94 20 118/63 (81) 92 04/02/20 21:55 Room Air 04/02/20 20:00 98.2 76 20 133/63 (86) 92 04/02/20 16:00 98.2 92 20 128/74 (92) 93 Intake and Output 04/02/20 04/03/20 19:00 07:00 Intake Total 820 ml 200 ml Balance 820 ml 200 ml Intake Oral 820 ml 200 ml # Voids 5 2 Laboratory Tests 04/03/20 05:35: White Blood Count 4.1L, Red Blood Count 3.38L, Hemoglobin 10.3L, Hematocrit 32.1L, Mean Corpuscular Volume 95, Mean Corpuscular Hemoglobin 30.3, Mean Corpuscular Hemoglobin Concent 32.0, Red Cell Distribution Width 15.8H, Platelet Count 135L, Mean Platelet Volume 4.9L, Neutrophils (%) (Auto) 48.6, Lymphocytes (%) (Auto) 30.0, Monocytes (%) (Auto) 14.8H, Eosinophils (%) (Auto) 5.3H, Basophils (%) (Auto) 1.3, Sodium Level 141, Potassium Level 5.2H, Chloride Level 109H, Carbon Dioxide Level 25, Anion Gap 7, Blood Urea Nitrogen 18, Creatinine 2.0H, Estimat Glomerular Filtration Rate 28.6, Glucose Level 77, Calcium Level 8.8 Height (Feet): 5 Height (Inches): 3.00 Weight (Pounds): 230 Cardiovascular: normal rate Respiratory/Chest: lungs clear Extremities: moderate edema Amor Flores MD April 03, 2020 14:04
--- NOTE | 2020-04-03 15:23 | Pulmonology Progress Note ---
Subjective ROS Limited/Unobtainable: No Allergies: Coded Allergies: DIAZEPAM (Verified Allergy, Unknown, 10/07/11) HYDROCODONE (Verified Allergy, Unknown, 07/07/10) MINOXIDIL (Verified Allergy, Unknown, 07/07/10) PENICILLINS (Unverified Allergy, Unknown, 03/26/20) tolerates cephalosporin NAME ALERT (Verified Adverse Reaction, Unknown, 07/13/08) Objective Last 24 Hour Vital Signs Date Time Temp Pulse Resp B/P (MAP) Pulse Ox O2 Delivery O2 Flow Rate FiO2 04/03/20 12:00 98.2 76 18 139/62 (87) 95 04/03/20 10:18 Room Air 04/03/20 09:45 73 133/56 04/03/20 08:00 97.7 76 19 144/75 (98) 95 04/03/20 04:00 97.7 83 20 127/61 (83) 92 04/03/20 00:00 98.1 94 20 118/63 (81) 92 04/02/20 21:55 Room Air 04/02/20 20:00 98.2 76 20 133/63 (86) 92 04/02/20 16:00 98.2 92 20 128/74 (92) 93 Intake and Output 04/02/20 04/03/20 19:00 07:00 Intake Total 820 ml 200 ml Balance 820 ml 200 ml Intake Oral 820 ml 200 ml # Voids 5 2 General Appearance: WD/WN, no acute distress HEENT: normocephalic, atraumatic Respiratory: chest wall non-tender, normal breath sounds Breasts: no masses Cardiovascular: normal peripheral pulses Genitourinary: normal external genitalia Extremities: no cyanosis, no clubbing Skin: no rash Laboratory Tests 04/03/20 05:35: White Blood Count 4.1L, Red Blood Count 3.38L, Hemoglobin 10.3L, Hematocrit 32.1L, Mean Corpuscular Volume 95, Mean Corpuscular Hemoglobin 30.3, Mean Corpuscular Hemoglobin Concent 32.0, Red Cell Distribution Width 15.8H, Platelet Count 135L, Mean Platelet Volume 4.9L, Neutrophils (%) (Auto) 48.6, Lymphocytes (%) (Auto) 30.0, Monocytes (%) (Auto) 14.8H, Eosinophils (%) (Auto) 5.3H, Basophils (%) (Auto) 1.3, Sodium Level 141, Potassium Level 5.2H, Chloride Level 109H, Carbon Dioxide Level 25, Anion Gap 7, Blood Urea Nitrogen 18, Creatinine 2.0H, Estimat Glomerular Filtration Rate 28.6, Glucose Level 77, Calcium Level 8.8 Current Medications Medications (Trade) Dose Ordered Sig/Liss Route PRN Reason Start Time Stop Time Status Last Admin Dose Admin Acetaminophen (Tylenol) 650 mg Q4H PRN ORAL fever 03/25/20 16:00 04/24/20 15:59 Allopurinol (Zyloprim) 100 mg DAILY ORAL 03/26/20 09:00 04/25/20 08:59 04/03/20 09:45 Ammonium Lactate (Lac Hydrin) 1 applic TWICE A DAY TOPIC 03/27/20 18:00 06/25/20 17:59 04/02/20 17:12 Aspirin (Ecotrin) 325 mg DAILY ORAL 03/26/20 09:00 05/10/20 08:59 04/03/20 09:44 Cetylpyridinium Chloride (Cepacol) 1 lozg Q4H PRN ALBA sore throat 03/29/20 10:45 06/27/20 10:44 04/01/20 06:20 Dextrose (Dextrose 50%) 25 ml Q30M PRN IV Hypoglycemia 03/25/20 16:00 06/23/20 15:59 Dextrose (Dextrose 50%) 50 ml Q30M PRN IV Hypoglycemia 03/25/20 16:00 06/23/20 15:59 Diphenhydramine HCl (Benadryl Cream) 1 applic TID TOPIC 03/26/20 18:00 04/25/20 17:59 04/03/20 13:58 Diphenhydramine HCl (Benadryl) 25 mg Q6H PRN ORAL Itching 03/28/20 12:15 04/27/20 12:14 03/31/20 22:30 Gabapentin (Neurontin) 400 mg TID ORAL 03/25/20 20:00 04/24/20 19:59 04/03/20 14:07 Heparin Sodium (Porcine) (Heparin 5000 units/ml) 5,000 units EVERY 12 HOURS SUBQ 03/25/20 21:00 05/09/20 20:59 04/02/20 08:38 Hydroxyzine HCl (Atarax) 25 mg EVERY 8 HOURS PRN ORAL Itching 03/28/20 12:30 04/24/20 23:44 Insulin Aspart (NovoLOG) BEFORE MEALS AND HS SUBQ 03/25/20 16:30 06/23/20 16:29 Metoprolol Succinate (Toprol XL) 25 mg DAILY ORAL 03/26/20 09:00 06/24/20 08:59 04/03/20 09:45 Ondansetron HCl (Zofran) 4 mg Q6H PRN IVP Nausea & Vomiting 03/25/20 16:00 04/24/20 15:59 Oxycodone HCl (Roxicodone) 15 mg Q8H PRN ORAL Severe Pain (Pain Scale 7-10) 04/02/20 13:30 04/09/20 13:29 04/02/20 22:45 Polyethylene Glycol (Miralax) 17 gm HSPRN PRN ORAL Constipation 03/25/20 16:00 04/24/20 15:59 Triamcinolone Acetonide (Kenalog) 1 applic THREE TIMES A DAY TOPIC 03/26/20 17:00 06/24/20 16:59 04/02/20 17:11 Assessment/Plan Problems: (1) Suspected COVID-19 virus infection (2) Acute on chronic renal insufficiency (3) Peripheral edema (4) Asthma (5) CKD (chronic kidney disease) (6) Diabetes mellitus (7) HTN (hypertension) (8) GERD (gastroesophageal reflux disease) (9) Cerebral vascular disease (10) Gout Assessment/Plan doing better covid - times one renal function improving, all reviewed f/u electrolytes cultures pending, all negative so far respiratory treatment titrate fio2 to sat of o2% f/u renal studies all reviewed dc planning Roberta Durán MD April 03, 2020 15:23
--- NOTE | 2020-04-04 13:58 | Discharge Summary ---
Discharge Summary Discharge Summary _ DATE OF ADMISSION: 03/25/2020 DATE OF DISCHARGE:04/03/2020 DISCHARGED BY: Dr. Villanueva REASON FOR ADMISSION: 84 years old female with past medical history of chronic renal failure, congestive heart failure, diabetes mellitus type 2,hypertension, cerebrovascular disease, status post CVA x3, obesity, gout, GERD, anemia, chronic dermatitis bilateral lower extremity, resident of retirement facility, presented with chief complaint of left lower extremity swelling , which started few days ago. Upon evaluation vital signs were stable. Urinalysis was unremarkable. Laboratory work-up revealed leukopenia with WBC 3.8 ,hemoglobin 11.9, hematocrit 37.8, platelet count 161. Stable electrolytes. BUN 26, creatinine 2.5. Glucose 88. Lactic acid 0.9. Stable LFT. Troponin 0.017. EKG revealed sinus rhythm , no acute ischemic changes. Chest x-ray demonstrated subtle perihilar and peripheral basilar interstitial opacity. Finding possibly related to fluid overload/CHF, but possibility of multifocal pneumonia , including viral pneumonia was not excluded. Venous duplex bilateral lower extremity revealed no evidence of acute DVT. Small suprapatellar joint effusion noted. Patient was swabbed for COVID-19. Patient subsequently admitted for further management resident of [facility], chronic dermatitis, CONSULTANTS: carpentry foreman Dr. Pierce pulmonary Dr. Leeanna VALIENTE specialist Dr. Moss tool analyst Dr. Amor Flores [facility] COURSE: Patient admitted to medical surgical floor. Patient initially was kept right in isolation. SARS COV 2 by PCR came back non detected. Isolation discontinued. Blood cultures were negative. Oral antibiotic provided for mild cellulitis, completed. Topical skin care provided . Antipruritic provided as needed. Supplemental oxygen provided and titrated to keep pulse oximetry above 92%. Pulmonary toilet provided. Pulse oximetry remained stable on room air. No evidence of asthma exacerbation. Echocardiogram revealed preserved ejection fraction. Beta-blockade continued. Renal parameters and electrolytes were closely monitored. Nephrotoxic's were avoided. Hyperkalemia was treated with Kayexalate ; potassium stabilized. Creatinine from initial 2.5 down to 2.0 prior to discharge. Machine Hoop Maker recommended avoid nephrotoxic's in future. Blood sugar was managed with sliding scale of insulin. Allopurinol continued. Pain management was addressed as needed. Hemoglobin and hematocrit were closely monitored with goal to keep hemoglobin above 7. Hemoglobin and hematocrit remained at baseline, and prior to discharge hemoglobin 10.3, hematocrit 32.1. Anemia work-up was consistent with anemia of chronic disease. CEA within normal limits. Supportive care provided. Patient clinically stabilized and was ready for discharge back to retirement facility for continuation of care FINAL DIAGNOSES: Suspected COVID-19 infection- ruled out Leg edema with mild cellulitis CHF with diastolic dysfunction Chronic dermatitis with some flare up Asthma Acute kidney injury on chronic kidney disease Cerebrovascular disease with history of CVA x3 Diabetes mellitus Hypertension Morbid obesity Gout Anemia of chronic kidney disease DISCHARGE MEDICATIONS: See Medication Reconciliation list. DISCHARGE INSTRUCTIONS: Patient was discharged to the retirement facility. Follow up with medical doctor at the facility. Princess Chavez NP April 04, 2020 13:58
== END 2020-04-03 15:45 | DRG 683 ==
LOC: EDBD 11:39 → EMR 12:14 → 4E 15:15 → EDBEDREQ 16:04 → 4E 04-02 16:58
DX: N17.9 Acute kidney failure, unspecified (principal); I42.9 Cardiomyopathy, unspecified; L03.116 Cellulitis of left lower limb; I13.0 Hypertensive heart and chronic kidney disease with heart failure and stage 1 through stage 4 chronic kidney disease, or unspecified chronic kidney disease; I50.32 Chronic diastolic (congestive) heart failure; C16.9 Malignant neoplasm of stomach, unspecified; E66.01 Morbid (severe) obesity due to excess calories; N18.9 Chronic kidney disease, unspecified; E11.22 Type 2 diabetes mellitus with diabetic chronic kidney disease; Z88.6 Allergy status to analgesic agent; Z88.0 Allergy status to penicillin; Z79.82 Long term (current) use of aspirin; M10.9 Gout, unspecified; K21.9 Gastro-esophageal reflux disease without esophagitis; Z86.73 Personal history of transient ischemic attack (TIA), and cerebral infarction without residual deficits; D63.8 Anemia in other chronic diseases classified elsewhere; L30.9 Dermatitis, unspecified; J45.909 Unspecified asthma, uncomplicated; E87.5 Hyperkalemia; E78.5 Hyperlipidemia, unspecified; Z68.33 Body mass index [BMI] 33.0-33.9, adult
CPT/HCPCS: 36415; 71045; 80048; 80053; 80061; 81001; 81003; 82306; 82378; 82550; 82553; 82607; 82746; 82962; 83540; 83550; 83605; 83615; 83735; 83970; 84100; 84133; 84300; 84484; 84550; 85007; 85025; 85044; 85060; 85610; 85651; 85730; 86140; 87040; 87081; 87635; 89050; 93005; 93306; 93971; 96360; 99285; J1815; J7030

== ENCOUNTER → 2020-08-15 | Outpatient (CLI) | payer MEDICARE, MEDICAID ==
[~2020-08-15] MED LIST changes: +CRESTOR10 M2 ORAL; +HYDROXYZINE HCL25 M1 PO; +ROCATROL0.25 MCG PO; +SYMBICORT 16010.2 G1 IH; +ZYRTEC10 MG ORAL
[2020-08-15 13:39] LABS: APPEARANCE,URINE CLEAR; BILIRUBIN, URINE NEGATIVE (NEGATIVE); GLUCOSE, URINE (UA) NEGATIVE (NEGATIVE); KETONES,URINE NEGATIVE (NEGATIVE); LEUKOCYTE ESTERASE ,URINE 1+ (NEGATIVE); NITRITE,URINE NEGATIVE (NEGATIVE); PH,URINE 6 (4.5-8.0); PROTEIN,URINE 2+ (NEGATIVE); UROBILINOGEN,URINE NORMAL MG/DL (0.0-1.0)
[2020-08-15 13:41] LABS: COLOR,URINE YELLOW
[2020-08-15 13:42] LABS: BASOPHILS % (AUTO) 1.4 % (0.0-2.0); EOSINOPHILS % (AUTO) 2.5 % (0.0-3.0); HEMATOCRIT 36.6 % (37.0-47.0); HEMOGLOBIN 11.7 G/DL (12.0-16.0); LYMPHOCYTES % (AUTO) 20.2 % (20.0-45.0); MEAN CORPUSCULAR VOLUME 97 FL (80-99); MONOCYTES % (AUTO) 10.2 % (1.0-10.0); NEUTROPHILS % (AUTO) 65.8 % (45.0-75.0); PLATELET COUNT 164 K/UL (150-450); RED BLOOD COUNT 3.78 M/UL (4.20-5.40); RED CELL DISTRIBUTION WIDTH 14.9 % (11.6-14.8); WHITE BLOOD COUNT 4.7 K/UL (4.8-10.8)
[2020-08-15 14:03] LABS: ALANINE AMINOTRANSFERASE 23 U/L (12-78); ALBUMIN 2.9 G/DL (3.4-5.0); ALBUMIN/GLOBULIN RATIO 0.5 (1.0-2.7); ALKALINE PHOSPHATASE 138 U/L (46-116); ANION GAP 7 mmol/L (5-15); ASPARTATE AMINO TRANSFERASE 27 U/L (15-37); BILIRUBIN,TOTAL 0.4 MG/DL (0.2-1.0); BLOOD UREA NITROGEN 28 mg/dL (7-18); CALCIUM 8.7 MG/DL (8.5-10.1); CARBON DIOXIDE 27 MMOL/L (21-32); CHLORIDE 106 MMOL/L (98-107); CHOLESTEROL 126 MG/DL (< 200); CREATININE 2.4 MG/DL (0.55-1.30); HDL CHOLESTEROL 70 MG/DL (40-60); PHOSPHORUS 3.9 MG/DL (2.5-4.9); POTASSIUM 4.9 MMOL/L (3.5-5.1); SODIUM 140 MMOL/L (136-145); TRIGLYCERIDES 72 MG/DL (30-150)
== END | disposition home or self-care (01) ==
LOC: LAB 12:39
DX: I10 Essential (primary) hypertension (principal); R42 Dizziness and giddiness; I73.9 Peripheral vascular disease, unspecified; S81.801A Unspecified open wound, right lower leg, initial encounter; X58.XXXA Exposure to other specified factors, initial encounter; Y92.9 Unspecified place or not applicable; M32.9 Systemic lupus erythematosus, unspecified
CPT/HCPCS: 36415; 80053; 80061; 81001; 82306; 82607; 82746; 83036; 83735; 84100; 84443; 84550; 85025; 85651; 86039; 86160; 86200; 86225; 86235; 86256; 86329; 86376; 86431

== ENCOUNTER → 2020-11-25 | Outpatient (CLI) | payer MEDICARE, MEDICAID ==
[2020-11-25 13:01] LABS: APPEARANCE,URINE SLIGHTLY CLOUDY; BASOPHILS % (AUTO) 1.6 % (0.0-2.0); BILIRUBIN, URINE NEGATIVE (NEGATIVE); COLOR,URINE PALE YELLOW; EOSINOPHILS % (AUTO) 3.3 % (0.0-3.0); GLUCOSE, URINE (UA) NEGATIVE (NEGATIVE); HEMOGLOBIN 11.4 G/DL (12.0-16.0); KETONES,URINE NEGATIVE (NEGATIVE); LEUKOCYTE ESTERASE ,URINE 1+ (NEGATIVE); LYMPHOCYTES % (AUTO) 21.4 % (20.0-45.0); MEAN CORPUSCULAR VOLUME 103 FL (80-99); MONOCYTES % (AUTO) 9.3 % (1.0-10.0); NEUTROPHILS % (AUTO) 64.4 % (45.0-75.0); NITRITE,URINE NEGATIVE (NEGATIVE); PH,URINE 6 (4.5-8.0); PLATELET COUNT 230 K/UL (150-450); PROTEIN,URINE 1+ (NEGATIVE); RED BLOOD COUNT 3.79 M/UL (4.20-5.40); RED CELL DISTRIBUTION WIDTH 15.8 % (11.6-14.8); UROBILINOGEN,URINE NORMAL MG/DL (0.0-1.0); WHITE BLOOD COUNT 4.9 K/UL (4.8-10.8)
[2020-11-25 13:35] LABS: ALANINE AMINOTRANSFERASE 26 U/L (12-78); ALBUMIN 2.3 G/DL (3.4-5.0); ALBUMIN/GLOBULIN RATIO 0.4 (1.0-2.7); ALKALINE PHOSPHATASE 134 U/L (46-116); ANION GAP 8 mmol/L (5-15); ASPARTATE AMINO TRANSFERASE 31 U/L (15-37); BILIRUBIN,TOTAL 0.3 MG/DL (0.2-1.0); BLOOD UREA NITROGEN 34 mg/dL (7-18); CALCIUM 8.6 MG/DL (8.5-10.1); CARBON DIOXIDE 24 MMOL/L (21-32); CHLORIDE 107 MMOL/L (98-107); CHOLESTEROL 96 MG/DL (< 200); CREATININE 2.7 MG/DL (0.55-1.30); HDL CHOLESTEROL 55 MG/DL (40-60); POTASSIUM 4.1 MMOL/L (3.5-5.1); SODIUM 139 MMOL/L (136-145); TRIGLYCERIDES 75 MG/DL (30-150)
== END | disposition home or self-care (01) ==
LOC: LAB 12:26
DX: I12.9 Hypertensive chronic kidney disease with stage 1 through stage 4 chronic kidney disease, or unspecified chronic kidney disease (principal); N18.9 Chronic kidney disease, unspecified
CPT/HCPCS: 36415; 80053; 80061; 81001; 82306; 83970; 85025; 87086